=== PATIENT | male | born 1945 | race Caucasian/White ===

== ENCOUNTER 2019-08-20 13:01 | Outpatient (CLI) | payer MEDICARE, SELFPAY ==
[2019-08-20 13:40] LABS: Basophils Absolute Auto 0.1 K/mm3 (0.0-0.1); Basophils Percent Auto 0.7 % (0.2-1.2); Eosinophils Absolute Auto 0.2 K/mm3 (0-0.3); Eosinophils Percent Auto 2.6 % (0-4.4); Hematocrit 45.2 % (42.0-52.0); Hemoglobin 15.5 g/dL (14.0-18.0); Immature Granulocyte Absolute 0.02 K/mm3 (0.00-0.031); Immature Granulocyte Percent A 0.3 % (0-0.5); Lymphocytes Percent Auto 19.1 % (18.3-44.2); Mean Corpuscular HGB Conc 34.3 g/dl (32-36); Mean Corpuscular Hemoglobin 35.5 pg (26-34); Mean Corpuscular Volume 103.4 fl (80-100); Mean Platelet Volume 8.6 fl (7.4-10.4); Monocytes Absolute Auto 0.8 K/mm3 (0.1-0.6); Monocytes Percent Auto 10.4 % (2.6-8.5); Neutrophils Absolute Auto 4.9 K/mm3 (1.3-6.7); Neutrophils Percent Auto 66.9 % (45.5-73.1); Platelet Count Result 303 k/mm3 (150-375); Red Blood Count 4.37 M/mm3 (4.6-6.20); Red Cell Distribution Width 13.2 % (11.5-14.5); White Blood Count 7.3 K/mm3 (4.5-10.0)
[2019-08-20 15:58] LABS: Add Urine Microscopic? YES; Appearance Urine Cloudy (Clear); Bacteria Urine 1+ /hpf; Bilirubin Urine Negative (Negative); Blood Urine Negative (Negative); Color Urine Yellow (Yellow); Glucose Urine UA Negative (Negative); Ketones Urine Negative (Negative); Leukocyte Esterase Ur 3+ LEU/UL (Negative); Mucus Urine Rare /lpf; Nitrate Urine Positive (Negative); Protein Urine 1+ mg/dL (Negative); RBC Urine 21-50 /hpf (0-2); Specific Grav Ur 1.011 (1.001-1.035); Squamous Epithelial Cell Urine Few /hpf (Few); Urobilinogen Urine Negative mg/dL (<2.0); WBC Urine >75 /hpf
[2019-08-20 16:07] LABS: Alanine Aminotransferase 55 U/L (4-50); Albumin Level 4.6 g/dL (3.5-5.1); Alkaline Phosphatase 68 U/L (38-126); Aspartate Amino Transferase 42 U/L (17-59); Bilirubin,Total 0.6 mg/dL (0.2-1.3); Blood Urea Nitrogen 21 mg/dL (9-20); CRP 0.9 mg/dL (<1.0); Calcium 10.2 mg/dL (8.4-10.2); Carbon Dioxide 31 mmol/L (22-30); Chloride 93 mmol/L (98-107); Estimated Glomerular Filt Rate > 60; Glucose 116 mg/dL (75-110); Potassium 4.3 mmol/L (3.4-5.0); Sodium 135 mmol/L (137-145)
== END 2019-08-20 13:02 | disposition home or self-care (01) ==
PROVIDERS: PCP Family Medicine; Visit Provider Internal Medicine
DX: M15.9 Polyosteoarthritis, unspecified (principal); Z79.899 Other long term (current) drug therapy
CPT/HCPCS: 36415; 80053; 81001; 85025; 86140; 87077; 87086; 87088; 87186

== ENCOUNTER 2019-10-26 09:34 | Inpatient (IN) | payer MEDICARE, SELFPAY ==
[2019-10-26] VITALS (14 sets, daily range): BP systolic 108–185; BP diastolic 68–89; PULSE 74–132; RESP 16–35; TEMP 36.7–39.3; O2SAT 92–97; BMI 33.8
--- NOTE | ~2019-10-26 | US_ITS ---
EXAMINATION: US carotid duplex BI DATE: 10/29/2019 09:57 INDICATION: Slurred speech. TECHNIQUE: Grayscale, color Doppler, and pulsed Doppler images of the cervical carotid arteries were obtained. The degree of vessel stenosis is placed in one of the following categories: normal, <50%, 5 0-69%, >=70% but less than near-occlusion, near-occlusion, or total occlusion. Note that percent sten osis relative to normal distal artery lumen diameter is indirectly measured from velocity measurement s as described by Eduardo, et al. Radiology 2003; 229:340-346. COMPARISON: Ultrasound 07/30/2014 FINDINGS: RIGHT: The right common carotid artery (CCA) peak systolic velocity (PSV) is 69 cm/s. The right internal car otid artery (ICA) PSV is 59 cm/s. The right ICA end-diastolic velocity (EDV) is 19 cm/s. The right IC A/CCA PSV ratio is 0.8. Grayscale and color Doppler images yield an estimate of <50% diameter reducti on from plaque in the ICA. There is antegrade flow in the right vertebral artery. LEFT: The left CCA PSV is 82 cm/s. The left ICA PSV is 69 cm/s. The left ICA EDV is 25 cm/s. The left ICA/C CA PSV ratio is 0.8. Grayscale and color Doppler images yield an estimate of <50% diameter reduction from plaque in the ICA. There is antegrade flow in the left vertebral artery. IMPRESSION: 1. <50% stenosis in the right internal carotid artery. 2. <50% stenosis in the left internal carotid artery. Reviewed, dictated and finalized at location A.
--- NOTE | ~2019-10-26 | XR_ITS ---
XR chest 1V portable DATE: 10/26/2019 10:00 INDICATION: Wheezing. Dyspnea. TECHNIQUE: Portable AP chest on 10/26/2019 at 0953 hours COMPARISON: None FINDINGS: There is mild atelectasis in the lung bases. No pulmonary consolidation or pleural effusion , pneumothorax. Normal heart size. There is aortic calcification and unfolding. Scoliosis and degenerative spurring of the thoracic spine. Osteopenia. IMPRESSION: Bibasilar atelectasis Reviewed, dictated and finalized at location A. IMPRESSION: Bibasilar atelectasis
--- NOTE | ~2019-10-26 | XR_ITS ---
EXAMINATION: XR chest 1V portable EXAM DATE: 10/28/2019 08:59 INDICATION: Fever and cough. TECHNIQUE: Portable AP frontal chest x-ray was obtained. Comparison is made to prior examination from 10/26/2019. FINDINGS: Again small regions of bibasilar opacity appearance most consistent with atelectasis. No co nfluent consolidation, pneumothorax or pleural effusion suspected. The cardiomediastinal silhouette i s prominent but magnified on this AP technique. There are no osseous abnormalities identified. IMPRESSION: Basilar opacities appearance most consistent with atelectasis. Follow-up can be obtained if symptoms persist. Reviewed, dictated and finalized at location B. IMPRESSION: Basilar opacities appearance most consistent with atelectasis. Foll ow-up can be obtained if symptoms persist.
--- NOTE | ~2019-10-26 | MR_ITS ---
EXAMINATION: MR brain/brain stem wo con DATE: 10/27/2019 17:25 INDICATION: Altered mental status. TECHNIQUE: Magnetic resonance imaging (MRI) of the brain and brainstem was performed without intraven ous contrast. Sequences included sagittal and axial T1-weighted SE, axial diffusion-weighted FS SE, a xial T2*-weighted GRE, axial T2-weighted FLAIR Propeller, and axial T2-weighted Propeller. Apparent d iffusion coefficient (ADC) maps were created. COMPARISON: MRI dated 07/29/[address] dated 10/26/2019 FINDINGS: Generalized brain parenchymal volume loss. There are scattered moderate periventricular and subcortical white matter changes, most likely related to small vessel ischemic disease (microangiopa thy). No acute intracranial hemorrhage or infarction. No ventriculomegaly. No midline shift. Structur es of the posterior fossa are unremarkable. Orbits are symmetric. No significant abnormality of the p aranasal sinuses. Midline sagittal images are unremarkable. IMPRESSION: 1. No acute intracranial abnormality. 2: Chronic age-related findings. Reviewed, dictated and finalized at location A.
--- NOTE | ~2019-10-26 | US_ITS ---
EXAMINATION: US renal BI EXAM DATE: 10/27/2019 10:24 INDICATION: Acute kidney insufficiency. TECHNIQUE: Multiple grayscale and Doppler images of the kidneys were obtained (by a technologist who performed the scan) and subsequently reviewed. There is no prior study for comparison. FINDINGS: Right kidney: There is normal contour and echogenicity. It measures 11.6 x 5.3 x 6.6 centimeters. T here are no focal renal lesions identified. There is no hydronephrosis. Left kidney: There is normal contour and echogenicity. It measures 11.3 x 6.6 x 5.5 centimeters. Th ere are no focal renal lesions identified. There is no hydronephrosis. Bladder unremarkable. IMPRESSION: Sonographically unremarkable kidneys. Reviewed, dictated and finalized at location B.
--- NOTE | ~2019-10-26 | CT_ITS ---
EXAMINATION: CT brain wo con DATE: 10/26/2019 10:09 INDICATION: Altered mental status TECHNIQUE: Computed tomography (CT) of the head was performed without intravenous contrast. The mA wa s adjusted according to patient size. Iterative reconstruction technique was employed. Exam dose: 68 1.00 mGy-cm total exam DLP. COMPARISON: 04/06/2019 CT brain FINDINGS: Carotid siphon and supraclinoid internal carotid artery calcifications are noted. There is nonspecific diminished attenuation of the subcortical and periventricular cerebral white matter, like ly due to chronic small vessel ischemic changes. No intracranial mass lesion or hemorrhage or recent cerebrovascular accident is evident. No midline s hift or mass effect. There is cerebral and cerebellar moderate atrophy. No subdural or epidural hematoma. No orbital mass lesion. Included paranasal sinuses and mastoid air cells are normally developed and aerated. No fracture or bone destruction of the cranial vault. IMPRESSION: Cerebral atherosclerosis and chronic small vessel ischemic changes of the cerebral white matter No acute intracranial finding or significant change since 04/06/2019 Reviewed, dictated and finalized at Location A. Reviewed, dictated and finalized at location A.
--- NOTE | 2019-10-26 09:41 | ED.NEUROSD ---
HPI - Neuro Symptoms/Deficit General Chief Complaint: Fever Stated Complaint: i think my dad is having a stroke Time Seen by Provider: 10/26/19 09:41 Source: patient and family () Mode of arrival: ambulatory Limitations: no limitations History of Present Illness HPI Narrative: A 73 y/o male presents to the ED with c/o AMS. Per , pt was normal when they went to sleep at 11:00 PM last night. The pt was in the bathroom this morning when he couldn't walk so pt's brought a chair into the bathroom for him to sit. Pt was complaining of back pain a few days ago but pt states this has since resolved. Pt's temperature in the ED was measured to be 102 degrees F. He denies ABD pain, N/V, dysuria, constipation, CP, SOB, a rash, leg pain, and a PMHx of A-fib or COPD. Timing confirmed by: spouse Related Data Home Medications Medication Instructions Recorded Confirmed hydrochlorothiazide 25 mg tablet 25 mg PO DAILY 05/28/19 10/26/19 lisinopril 10 mg tablet 10 mg PO DAILY 05/28/19 10/26/19 aspirin 81 mg tablet,delayed 81 mg PO DAILY 07/08/19 10/26/19 release brimonidine 0.2 %-timolol 0.5 % 1 drop EACH EYE Q12H 07/08/19 10/26/19 eye drops diclofenac sodium 1 % topical gel 2 gm TOPICAL QID 07/08/19 10/26/19 testosterone 20.25 mg/1.25 gram 2 pump TOPICAL DAILY 07/08/19 10/26/19 (1.62 %) transdermal gel pump travoprost 0.004 % eye drops 1 drop EACH EYE QPM 07/08/19 10/26/19 Allergies Allergy/AdvReac Type Severity Reaction Status Date / Time No Known Drug Allergies Allergy Mild unknown Verified 10/26/19 14:40 Review of Systems Review of Systems: All systems reviewed & are unremarkable except as noted in HPI and below Constitutional: Constitutional: Reports fever(s) (102 degrees F) Cardiovascular: Cardiovascular: Denies chest pain Respiratory: Respiratory: Denies dyspnea Gastrointestinal: Gastrointestinal: Denies abdominal pain, Denies constipation, Denies nausea and Denies vomiting Genitourinary: Genitourinary: Denies dysuria Musculoskeletal: Musculoskeletal: Reports back pain (resolved) Comments: Denies: leg pain Integumentary/Breasts: Skin/Breast: Denies rash Neurologic: Comments: Reports: AMS PMFSH Past Medical History Medical History (Updated 10/26/19 @ 16:03 by Eduardo Gagnon MD) Khoury palsy 2019. Essential hypertension Glaucoma Hypogonadism in male Uses testosterone gel. Osteoarthritis Overactive bladder Pre-diabetes Hemoglobin A1c was 6.3% in April 2019. Rheumatoid arthritis with rheumatoid factor of multiple sites without organ or systems involvement Immunosuppressed, on methotrexate. TIA (transient ischemic attack) 2014. Vitamin D deficiency Surgical History Surgical History (Updated 10/26/19 @ 15:15 by Yohana Roche PA-C) History of appendectomy History of left cataract surgery Family History Family History (Updated 10/26/19 @ 15:15 by Yohana Roche PA-C) Other Acute myocardial infarction Diabetes mellitus Heart disease Hypertension Social History Social History (Updated 10/26/19 @ 15:16 by Yohana Roche PA-C) Social History: The patient lives in [place]. His , Vandana, is his emergency contact. He is a former smoker and quit in 1989. No alcohol or drug abuse. Spiritual care concerns: Yes (Buddhist) Agree to blood products: Yes Comments PCP: Dr. Cho Exam Narrative: Exam Narrative: Constitutional: healthy appearing, no acute distress, well nourished HENMT: lip normal, MM moist Eyes: conjunctiva normal, PERRL Respiratory: normal respiratory effect, minimal wheeze Cardiovascular: tachycardic, irregularly irregular, no murmur GI: soft, non-tender, normal bowel sounds Back/Spine/Pelvis: Full ROM Skin: normal color, dry skin, warm, small area of erythema under the pannus Neurological: A&Ox3, normal speech Extremities: full ROM Psych: mental status grossly normal, normal affect Course Consultations Co
[2019-10-26 09:56] LABS: Basophils Absolute Auto 0.1 K/mm3 (0.0-0.1); Basophils Percent Auto 0.3 % (0.2-1.2); Eosinophils Percent Auto 0.2 % (0-4.4); Hematocrit 42.9 % (42.0-52.0); Hemoglobin 14.7 g/dL (14.0-18.0); Immature Granulocyte Percent A 0.6 % (0-0.5); Lymphocytes Absolute Auto 0.87 K/mm3 (0.9-3.2); Mean Corpuscular HGB Conc 34.3 g/dl (32-36); Mean Corpuscular Hemoglobin 35.7 pg (26-34); Mean Corpuscular Volume 104.1 fl (80-100); Mean Platelet Volume 9.5 fl (7.4-10.4); Monocytes Absolute Auto 2.4 K/mm3 (0.1-0.6); Monocytes Percent Auto 13.5 % (2.6-8.5); Neutrophils Absolute Auto 14.1 K/mm3 (1.3-6.7); Neutrophils Percent Auto 80.4 % (45.5-73.1); Platelet Count Result 207 k/mm3 (150-375); Red Blood Count 4.12 M/mm3 (4.6-6.20); Red Cell Distribution Width 14.1 % (11.5-14.5); White Blood Count 17.5 K/mm3 (4.5-10.0)
[2019-10-26 10:06] LABS: Lactic Acid Reflex 2.6 mmol/L (0.7-2.1)
[2019-10-26 10:10] LABS: Alanine Aminotransferase 33 U/L (4-50); Albumin Level 4.4 g/dL (3.5-5.1); Alkaline Phosphatase 58 U/L (38-126); Aspartate Amino Transferase 30 U/L (17-59); Bilirubin,Total 1.4 mg/dL (0.2-1.3); Blood Urea Nitrogen 31 mg/dL (9-20); Calcium 8.9 mg/dL (8.4-10.2); Carbon Dioxide 23 mmol/L (22-30); Chloride 97 mmol/L (98-107); Estimated Glomerular Filt Rate 31; Glucose 183 mg/dL (75-110); Lactate Dehydrogenase 442 U/L (313-618); Sodium 132 mmol/L (137-145)
[2019-10-26] MEDS: SODIUM CHLORIDE 0.9% IV 1,000 ML 999 ML IV CONT ×2 (10:15→13:14)
[2019-10-26 10:18] LABS: Troponin I < 0.012 ng/mL (0.000-0.034)
[2019-10-26 10:25] LABS: CRP 17.8 mg/dL (<1.0)
[2019-10-26 11:06] LABS: INR 1.2; Prothrombin Time 14.7 Seconds (11.1-14.7)
[2019-10-26 11:07] LABS: Partial Thromboplastin Time 25.2 SECONDS (22.3-36.8)
[2019-10-26 11:23] LABS: Add Urine Microscopic? YES; Appearance Urine Clear (Clear); Bilirubin Urine Negative (Negative); Blood Urine 2+ (Negative); Color Urine Yellow (Yellow); Glucose Urine UA Negative (Negative); Ketones Urine Negative (Negative); Leukocyte Esterase Ur 2+ LEU/UL (Negative); Mucus Urine Rare /lpf; Nitrate Urine Negative (Negative); Protein Urine 1+ mg/dL (Negative); Specific Grav Ur 1.017 (1.001-1.035); Squamous Epithelial Cell Urine Rare /hpf (Few); Urobilinogen Urine Negative mg/dL (<2.0); WBC Urine >75 /hpf
[2019-10-26 12:52] LABS: Reflex Lactic Acid Yes or No Add Lactic
--- NOTE | 2019-10-26 15:10 | PM.IMHP ---
H&P: HPI History of Present Illness Chief complaint: Possible stroke. Narrative: Shant Zaman is a 73-year-old male with rheumatoid arthritis on immunosuppressants, hypertension, prediabetes, and history of TIA who presented to the emergency department via private vehicle from home as family members were concerned that the patient may have had a stroke. At the time my evaluation, the patient is alert and oriented x4, however he was quite confused this morning and he does not recall a lot of the events that happened prior to him coming to the hospital. As such, some of this history is obtained via a review of his electronic medical records as well as discussions with his via phone, with the patient's permission. For the last several days, he has had an aching discomfort in his right lower back, for which he has been taking Tylenol and using diclofenac gel. It seemed to be better on Sunday, but he began complaining of the pain again yesterday. He seemed to be in his usual state of health when his retired to bed last evening. Reportedly the patient came to bed at 02:30 and at that time he seemed to be doing just fine, however notes that he laid down in bed at a strange angle, which was unusual for him. She then decided to get up and sleep in a different room. Around 07:30, he called to his for help as he was too weak to get out of bed and he seemed to be speaking nonsensically with slurred speech at that time. She also notes that he was ?huffing and puffing? and seemed to be short of breath. When they got to the bathroom, the patient urinated on the floor and he was using the sink to hold himself up. was concerned that he may be having a stroke due to this slurred speech and weakness and thus he was brought in for evaluation. His temperature was 102.7? on arrival to the emergency department and he also meets criteria for sepsis. Urinalysis was positive for leukocyte esterase with > 75 white blood cells per high-power field. With further questioning, the patient denies symptoms of UTI, and specifically denies dysuria, urgency, hesitancy, and malodorous urine. He was unaware of having a fever, but he does report intermittent chills over the past couple of days. He has had a mild, dry cough which he attributes to tree pollen for which he has been taking pseudoephedrine. He has also had mild shortness of breath. He denies chest and pleuritic pain. His appetite has been as per usual but he does note being quite thirsty earlier today. No abdominal pain, nausea, vomiting, or diarrhea. Of note, he was found to be in atrial fibrillation with rapid ventricular response on arrival to the emergency department, which is a new diagnosis for him. He reports being asymptomatic with that. He has no sick contacts. He and his have not left the house for nearly 3 weeks time, and they have only been in contact with her son on occasion when he brings them groceries. Review of Systems Review of Systems: Narrative: Twelve systems were reviewed with pertinent positives and negatives as per HPI. He denies vertigo. No headache or neck ache. He has had some mild sinus congestion, postnasal drip, and mild dry cough which he attributes to seasonal allergies. This is not a new finding for him. No otalgia or odynophagia. He denies chest pain, pleuritic pain, palpitations, orthopnea, PND, and lower extremity edema. No shortness of breath. Except as documented, all other systems were reviewed and are negative. [facility] Past Medical History Medical History (Updated 10/26/19 @ 18:53 by Yohana Roche PA-C) Khoury palsy 2019. Essential hypertension Glaucoma Hypogonadism in male Uses testosterone gel. Osteoarthritis Overactive bladder Pre-diabetes Hemoglobin A1c was 6.3% in April 2019. Retinal vein occlusion of left eye Rheumatoid arthritis with rheumatoid factor of multiple sites without organ or systems involvement Immunosuppressed, on m
[2019-10-26] MEDS: LACTATED RINGERS 1,000 ML 100 ML IV CONT (15:24)
[2019-10-26] MEDS: LACTATED RINGERS 1,000 ML 999 ML IV CONT (17:36)
[2019-10-26 18:03] LABS: Blood Urea Nitrogen 27 mg/dL (9-20); Calcium 8.2 mg/dL (8.4-10.2); Carbon Dioxide 26 mmol/L (22-30); Chloride 99 mmol/L (98-107); Estimated CRCL calculation 49 ml/min; Estimated Glomerular Filt Rate 46; Glucose 135 mg/dL (75-110); Magnesium 1.7 mg/dL (1.6-2.3); Phosphorus 2.6 mg/dL (2.5-4.5); Potassium 3.8 mmol/L (3.4-5.0); Sodium 134 mmol/L (137-145)
[2019-10-26 18:12] LABS: NT Pro B Type Natriuretic Pept 411 PG/ML (5-100)
[2019-10-26 18:17] LABS: D Dimer 10.11 ug/mL (<0.48)
--- NOTE | 2019-10-26 18:41 | ADMGEN ---
This patient, Shant Zaman, was admitted to IMU Room 204-01 at 1425. Patient/family oriented to hospital policies and general routines including ID bracelet, bed and alarms, visiting hours, pain management, procedures, bathroom and other care routines, personal items, smoking policy, room service/diet, and visiting hours. Valuables list has been completed. Information on how to activate the Rapid Response Team has been discussed. Patient/Family are encouraged to report perceived risks to care and to ask questions if they do not understand what they are told or what they should do.
[2019-10-26 19:09] LABS: Folic Acid 17.2 ng/mL (2.76->20)
[2019-10-26] MEDS: SODIUM CHLORIDE 0.9% IV 1,000 ML 125 ML IV CONT (20:53)
[2019-10-26] MEDS: ENOXAPARIN 120 MG/0.8 ML SYRINGE 110 MG SUB-Q (20:53)
[2019-10-26] MEDS: METOPROLOL TARTRATE 25 MG TABLET PO (20:54)
[2019-10-27] VITALS (16 sets, daily range): BP systolic 113–156; BP diastolic 48–87; PULSE 80–125; RESP 18–20; TEMP 36.8–39.3; O2SAT 95–96
--- NOTE | 2019-10-27 01:26 | PC.NURSE ---
This patient, Shant Zaman, was received from [ IMU ] on 10/27/19 at 0126. Personal belongings list checked and signed. Patient/family oriented to unit policies and routines. VSS. Placed on droplet 2020 isolation.
[2019-10-27 08:52] LABS: Glucose Point of Care 131 (65-105)
--- NOTE | 2019-10-27 09:18 | ECG_ITS ---
Measurements Intervals [place] Rate: 107 P: WA: 0 QRS: 49 QRSD: 161 T: -19 QT: 392 QTc: 524 Interpretive Statements ATRIAL FLUTTER/TACHYCARDIA WITH RAPID VENTRICULAR RESPONSE RIGHT BUNDLE BRANCH BLOCK ABNORMAL ECG Electronically Signed On 10-27-2019 11:12:24 CDT by Francisco Pérez D.O.
[2019-10-27] MEDS: ASPIRIN 81 MG ENTERIC TABLET PO (10:43)
[2019-10-27] MEDS: ENOXAPARIN 120 MG/0.8 ML SYRINGE 110 MG SUB-Q ×2 (10:44→20:11)
[2019-10-27] MEDS: FOLIC ACID 1 MG TABLET PO (10:44)
[2019-10-27] MEDS: METOPROLOL TARTRATE 25 MG TABLET PO ×2 (10:44→20:15)
[2019-10-27] MEDS: BRIMONIDINE TARTRATE 0.2% OP SOLN 5 ML BTL 1 DROP EACH EYE ×2 (10:45→20:12)
[2019-10-27] MEDS: TIMOLOL MALEATE 0.5% OP SOLN 5 ML BTL 1 DROP EACH EYE ×2 (10:45→20:12)
[2019-10-27 12:21] LABS: Hematocrit 38.1 % (42.0-52.0); Hemoglobin 12.8 g/dL (14.0-18.0); Mean Corpuscular HGB Conc 33.6 g/dl (32-36); Mean Corpuscular Hemoglobin 35.9 pg (26-34); Mean Corpuscular Volume 106.7 fl (80-100); Mean Platelet Volume 9.1 fl (7.4-10.4); Platelet Count Result 161 k/mm3 (150-375); Red Blood Count 3.57 M/mm3 (4.6-6.20); White Blood Count 11.8 K/mm3 (4.5-10.0)
[2019-10-27 12:35] LABS: Blood Urea Nitrogen 23 mg/dL (9-20); Calcium 8.2 mg/dL (8.4-10.2); Carbon Dioxide 27 mmol/L (22-30); Chloride 102 mmol/L (98-107); Estimated CRCL calculation 41 ml/min; Estimated Glomerular Filt Rate 37; Glucose 129 mg/dL (75-110); Magnesium 1.9 mg/dL (1.6-2.3); Potassium 3.7 mmol/L (3.4-5.0); Sodium 135 mmol/L (137-145)
--- NOTE | 2019-10-27 13:40 | PC.NURSE ---
Dr Mccarty notified of increasing confusion today. Patient inappropriate at time, requires redirection frequently. New orders received.
--- NOTE | 2019-10-27 14:35 | PM.IMPN ---
Progress Note: A&P Assessment and Plan (1) Sepsis: Code(s): A41.9 - Sepsis, unspecified organism Status: Acute Assessment and Plan: Present on admission and supported by tachycardia, fever, leukocytosis, lactic acidosis and acute kidney injury. Presumably a urinary source, however no bacteria noted on microscopy. Given dry cough, shortness breath, high fever, elevated D-dimer, elevated ferritin level, and immunocompromised state, it would be prudent to rule out COVID-19. LFTs and LDH are within normal limits. [facility] Dept called. Specimen to be sent to commercial laboratory. He received IV fluid boluses with normalization of his lactic acid level. Blood cultures have been obtained and are pending. 10/27/19 14:35 Patient is 73-year-old male with past medical history of rheumatoid arthritis, hypertension prediabetes patient was brought to the emergency departmen t as earlier he was quite confused and there was a concern the patient may have stroke, CT of the head is negative for any acute injury, found to have a new onset atrial fibrillation, patient was started on on metoprolol 25 mg b.i.d. patient rate is controlled currently, his Chads Vasc 2 is 5, and currently anticoagulated with Lovenox, chemical equipment sales engineer consulted, UTI denies any symptoms of dysuria or frequency of urination his UA is positive leuko Estrace and patient is being treated ceftriaxone, patient also had a complaint of dry cough fever patient is immuno compromise with elevated D-dimer and ferritin patient is being evaluated for COVID-19 and placed under isolation, Currently patient denies any chest pain shortness of breath palpitation fever chills he insisting to go home, however later in the afternoon I received a call from nurse the patient is more confused and his family concern the patient is not himself to further evaluate we have order MRI of the brain and consulted Neurology with recommendation. (2) Acute kidney injury: Code(s): N17.9 - Acute kidney failure, unspecified Status: Acute Assessment and Plan: He looks mildly dehydrated on exam, but reports having good oral intake. Cannot rule out ATN from sepsis. Insert De Leon catheter to monitor strict I/O. Avoid nephrotoxic agents. Renal ultrasound is normal Will gently hydrate the patient and monitor (3) Metabolic encephalopathy: Code(s): G93.41 - Metabolic encephalopathy Status: Acute Assessment and Plan: Secondary to acute kidney injury and underlying infection. Confusion is much improved with resolution of fever. (4) Rheumatoid arthritis with rheumatoid factor of multiple sites without organ or systems involvement: Code(s): M05.79 - Rheumatoid arthritis with rheumatoid factor of multiple sites without organ or systems involvement Status: Acute Assessment and Plan: Patient takes methotrexate every Sunday, but missed today's dose. Continue to hold such given active infection. (5) Essential hypertension: Code(s): I10 - Essential (primary) hypertension Status: Acute Assessment and Plan: Blood pressures were reviewed and they are stable. Continue to monitor closely as lisinopril and hydrochlorothiazide are on hold given acute kidney injury. (6) UTI (urinary tract infection): Qualifiers: Hematuria presence: without hematuria Urinary tract infection type: site unspecified Qualified Code(s): N39.0 - Urinary tract infection, site not specified Code(s): N39.0 - Urinary tract infection, site not specified Status: Acute Assessment and Plan: Urine is leukocyte esterase positive and demonstrates > 75 WBCs per high-power field. No bacteria noted, however. Will continue ceftriaxone, pending urine culture. (7) Atrial fibrillation with rapid ventricular response: Code(s): I48.91 - Unspecified atrial fibrillation Status: Acute Assess
[2019-10-27] MEDS: LATANOPROST 0.005% OP SOLN 2.5 ML BTL 1 DROP EACH EYE (20:15)
[2019-10-27] MEDS: SODIUM CHLORIDE 0.9% IV 1,000 ML 125 ML IV CONT (23:48)
[2019-10-27] MEDS: ACETAMINOPHEN 325 MG TABLET 650 MG PO (23:50)
[2019-10-28] VITALS (14 sets, daily range): BP systolic 118–140; BP diastolic 67–98; PULSE 68–97; RESP 16–20; TEMP 36.2–37.4; O2SAT 93–98
[2019-10-28 06:03] LABS: Hematocrit 37.6 % (42.0-52.0); Hemoglobin 12.7 g/dL (14.0-18.0); Mean Corpuscular HGB Conc 33.8 g/dl (32-36); Mean Corpuscular Hemoglobin 36.2 pg (26-34); Mean Corpuscular Volume 107.1 fl (80-100); Mean Platelet Volume 9.3 fl (7.4-10.4); Platelet Count Result 150 k/mm3 (150-375); Red Blood Count 3.51 M/mm3 (4.6-6.20)
[2019-10-28 06:11] LABS: Blood Urea Nitrogen 16 mg/dL (9-20); Carbon Dioxide 28 mmol/L (22-30); Chloride 104 mmol/L (98-107); Estimated CRCL calculation 69 ml/min; Estimated Glomerular Filt Rate > 60; Glucose 111 mg/dL (75-110); Potassium 3.6 mmol/L (3.4-5.0); Sodium 138 mmol/L (137-145)
--- NOTE | 2019-10-28 07:45 | PC.NURSE ---
Dr Mccarty called and status report update provided. Advised of elevated temp last night of 102.8, resolved with one dose of Tylenol. I also reported continued impulsivity and confusion. New orders noted for CXR repeat.
[2019-10-28 08:27] LABS: Basophils Percent Auto 0.4 % (0.2-1.2); Eosinophils Absolute Auto 0.2 K/mm3 (0-0.3); Eosinophils Percent Auto 1.6 % (0-4.4); Hematocrit 38.2 % (42.0-52.0); Hemoglobin 12.7 g/dL (14.0-18.0); Immature Granulocyte Absolute 0.04 K/mm3 (0.00-0.031); Immature Granulocyte Percent A 0.4 % (0-0.5); Lymphocytes Absolute Auto 1.22 K/mm3 (0.9-3.2); Lymphocytes Percent Auto 13.4 % (18.3-44.2); Mean Corpuscular HGB Conc 33.2 g/dl (32-36); Mean Corpuscular Hemoglobin 35.8 pg (26-34); Mean Corpuscular Volume 107.6 fl (80-100); Monocytes Percent Auto 10.6 % (2.6-8.5); Neutrophils Absolute Auto 6.7 K/mm3 (1.3-6.7); Neutrophils Percent Auto 73.6 % (45.5-73.1); Platelet Count Result 168 k/mm3 (150-375); Red Blood Count 3.55 M/mm3 (4.6-6.20); Red Cell Distribution Width 13.9 % (11.5-14.5); White Blood Count 9.1 K/mm3 (4.5-10.0)
[2019-10-28] MEDS: METOPROLOL TARTRATE 25 MG TABLET PO ×2 (09:09→20:10)
[2019-10-28] MEDS: FOLIC ACID 1 MG TABLET PO (09:10)
[2019-10-28] MEDS: ENOXAPARIN 120 MG/0.8 ML SYRINGE 110 MG SUB-Q ×2 (09:10→20:11)
[2019-10-28] MEDS: ASPIRIN 81 MG ENTERIC TABLET PO (09:10)
[2019-10-28] MEDS: TIMOLOL MALEATE 0.5% OP SOLN 5 ML BTL 1 DROP EACH EYE ×2 (09:11→20:10)
[2019-10-28] MEDS: SODIUM CHLORIDE 0.9% IV 1,000 ML 125 ML IV CONT ×2 (09:11→20:11)
[2019-10-28] MEDS: BRIMONIDINE TARTRATE 0.2% OP SOLN 5 ML BTL 1 DROP EACH EYE ×2 (09:11→20:10)
[2019-10-28 10:52] LABS: D Dimer 2.68 ug/mL (<0.48); Lactate Dehydrogenase 475 U/L (313-618)
--- NOTE | 2019-10-28 12:42 | CONS_ITS ---
DATE OF CONSULTATION: 10/26/2019 HISTORY OF PRESENT ILLNESS: A 73-year-old right-handed male has been admitted to [facility] with ongoing history of: 1. Rheumatoid arthritis, on immunosuppressants. 2. Hypertension. 3. Prediabetic. 4. Recurrent TIA. He presented to the emergency department via private vehicle from home as the family members were concern that the patient have had a stroke. At the time of initial evaluation by the hospital, he was awake, alert, oriented x4, but was somewhat confused, was unable to recall the lot of events that happened prior to him coming to the hospital. As per the electronic records, he has had aching discomfort in his right lower back, for which he has been taking Tylenol and using diclofenac gel, it seemed to be better on Sunday, but he began complaining of pain again yesterday though he was in his usual state of health when his retired to bed last evening. The patient came to bed at 02:30 and at that time, he seemed to be doing just fine. However, noted that he lay down in bed at a strange angle. She then decided to get up and sleep in a different room, around 07:30 a.m. he called to his for help as he was too weak to get out of the bed and seemed to be speaking nonsensically with slurred speech. He was huffing and puffing and seemed to be short of breath. When they got to the bathroom, patient urinated on the floor while using the sink to hold himself up. was concerned that maybe he had a stroke due to his slurred speech and weakness and he was brought to the hospital for further evaluation. In the hospital, he was noted to be febrile with temp of 102.7. UA was positive for leukocyte esterase, more than 75. He did not have any complaints about the UTI. He was unaware of being febrile, but he gave history of intermittent chills over the last couple of days. He and his have not left the house for nearly 3 weeks and they have been only in contact with her son on occasion when he brings the groceries. PAST MEDICAL HISTORY: In the past, patient has ongoing history of Khoury's palsy, hypertension, glaucoma, hypogonadism, osteoarthritis, overactive bladder, prediabetic, retinal occlusion of the left eye and rheumatoid arthritis and history of vitamin D deficiency, and TIA in the past. PAST SURGICAL HISTORY: He has also undergone appendectomy and left cataract extraction. MEDICATIONS: At the time of admission to the hospital, he was takin. Hydrochlorothiazide 25 mg daily. 2. Lisinopril 10 mg daily. 3. Aspirin 81 mg daily. 4. Diclofenac 1% topical gel. 5. Transdermal gel testosterone. 6. Travoprost eyedrops. 7. Oxybutynin 10 mg. 8. Folic acid 1 mg daily. 9. Methotrexate sodium 2.5 mg tablet weekly. ALLERGIES: HE IS NOT ALLERGIC TO ANY MEDICATION. PHYSICAL EXAMINATION: VITAL SIGNS: He was notedly febrile with temp of 102.7, pulse 129, respiration 35, blood pressure 130/88, and pulse ox 95%. HEENT: Head normocephalic with no cranial bruit. Ear, nose, throat exam normal. NECK: Supple. HEART: Irregular. LUNGS: Clear. ABDOMEN: Soft. NEUROLOGICAL: He is awake, alert, oriented x3. His speech not dysphasic, not dysarthric not dysphonic. Cranial nerve examination normal. Motor and sensory exam normal. Reflexes symmetrical. Plantars downgoing. LABORATORY DATA: Evaluation up until now documented CBC with leukocytosis, WBC 17.5, hemoglobin 14.7, platelet count 207. Normal basic metabolic panel, borderline. Sodium 132, chloride 97, BUN 31, creatinine 2.10, glucose 183. Troponin less than 0.012. Hepatic enzymes normal with bilirubin of 1.4. UA 1+ protein. Initial CT scan of the head in the emergency room was negative, except a small vessel ischemic change of cerebral white matter with bibasilar atelectasi
--- NOTE | 2019-10-28 13:42 | WPDINFPN2 ---
Progress Note: A&P Assessment and Plan (1) UTI (urinary tract infection): Qualifiers: Hematuria presence: without hematuria Urinary tract infection type: site unspecified Qualified Code(s): N39.0 - Urinary tract infection, site not specified Code(s): N39.0 - Urinary tract infection, site not specified Status: Acute Assessment and Plan: UTI with bacteremia REC vanc #1, at least 3 days IV therapy Subjective Date/time seen: 10/28/19 13:42 Objective Data Vital Signs Vital Signs: Vital Signs - 24 hr 10/27/19 14:00 10/27/19 16:00 10/27/19 18:00 Temperature 37.1 C 36.8 C Pulse Rate 105 H 80 93 Respiratory Rate 18 18 Blood Pressure 142/72 H 156/83 H Pulse Oximetry 95 95 10/27/19 20:00 10/27/19 20:15 10/27/19 20:25 Temperature Pulse Rate 85 95 95 Respiratory Rate Blood Pressure 146/87 H Pulse Oximetry 96 10/27/19 22:00 10/27/19 23:50 10/28/19 00:00 Temperature 38.1 C H 39.3 C H Pulse Rate 87 97 Respiratory Rate 18 Blood Pressure 123/67 Pulse Oximetry 95 10/28/19 00:49 10/28/19 02:00 10/28/19 04:00 Temperature 36.8 C 36.8 C Pulse Rate 87 68 Respiratory Rate 16 Blood Pressure 125/78 Pulse Oximetry 93 10/28/19 06:00 10/28/19 09:09 10/28/19 10:00 Temperature 36.8 C 37.4 C Pulse Rate 84 84 97 Respiratory Rate 18 18 Blood Pressure 118/67 140/98 H Pulse Oximetry 96 98 Intake/Output Intake/Output: Intake & Output 10/25/19 10/26/19 10/27/19 10/28/19 23:59 23:59 23:59 23:59 Intake Total 2250 2680 1240 Output Total 800 1650 300 Balance 1450 1030 940 Meds/Results Medications: Active Medications Generic Name Dose Route Start Last Admin Trade Name Freq PRN Reason Stop Dose Admin Acetaminophen 650 mg 10/26/19 19:14 10/27/19 23:50 Tylenol Tablet PO 650 mg Q6H PRN Administration Mild Pain (1-3) or Fever Aspirin 81 mg 10/27/19 09:00 10/28/19 09:10 Aspirin Ec PO 81 mg DAILY MART Administration Brimonidine Tartrate 1 drop 10/26/19 21:00 10/28/19 09:11 Alphagan 0.2% Op Soln EACH EYE 1 drop Q12HR MART Administration Diclofenac Sodium 0 applic 10/26/19 21:00 10/27/19 20:15 Voltaren 1% Gel TOPICAL 11/25/19 21:01 Not Given QID MART Enoxaparin Sodium 110 mg 10/26/19 20:00 10/28/19 09:10 Lovenox SUB-Q 110 mg Q12HR MART Administration Folic Acid 1 mg 10/27/19 09:00 10/28/19 09:10 Folic Acid PO 1 mg DAILY MART Administration Sodium Chloride 1,000 mls @ 125 mls/hr 10/26/19 19:15 10/28/19 09:11 Normal Saline Iv IV CONT 125 mls/hr .Q8H MART Administration Ipratropium [place] 2 puff 10/26/19 18:30 Atrovent Hfa Inhaler INHALATION Q6HRT PRN Shortness Of Breath Latanoprost 1 drop 10/26/19 21:00 10/27/19 20:15 Xalatan EACH EYE 1 drop HS MART Administration Levalbuterol HCl 2 puff 10/26/19 17:36 Xopenex Hfa INHALATION Q6HRT PRN Shortness Of Breath Metoprolol Tartrate 25 mg 10/26/19 19:15 10/28/19 09:09 Lopressor PO 25 mg Q12HR MART Administration Oxybutynin Chloride 10 mg 10/27/19 09:00 10/28/19 09:11 Ditropan Xl PO 10 mg DAILY MART Administration Timolol Maleate 1 drop 10/26/19 21:00 10/28/19 09:11 Timoptic 0.5% Ophth Soln EACH EYE 1 drop Q12HR MART Administration Radiology Results: ITS Impressions Head CT 10/26/19 10:12 IMPRESSION: Cerebral atherosclerosis and chronic small vessel ischemic changes of the cerebral white matter No acute intracranial finding or significant change since 04/06/2019 Renal Ultrasound 10/27/19 10:31 IMPRESSION: Sonographically unremarkable kidneys. Brain MRI 10/27/19 17:52 IMPRESSION: 1. No acute intracranial abnormality. 2: Chronic age-related findings. Chest X-Ray 10/28/19 09:01 IMPRESSION: Basilar opacities appearance most consistent with atelectasis. Follow-up can be obtained if symptoms persist.
--- NOTE | 2019-10-28 16:05 | PM.IMPN ---
Progress Note: A&P Assessment and Plan (1) Sepsis: Code(s): A41.9 - Sepsis, unspecified organism Status: Acute Assessment and Plan: Present on admission and supported by tachycardia, fever, leukocytosis, lactic acidosis and acute kidney injury. Presumably a urinary source, however no bacteria noted on microscopy. Given dry cough, shortness breath, high fever, elevated D-dimer, elevated ferritin level, and immunocompromised state, it would be prudent to rule out COVID-19. LFTs and LDH are within normal limits. [facility] called. Specimen to be sent to commercial laboratory. He received IV fluid boluses with normalization of his lactic acid level. Blood cultures have been obtained and are pending. 10/28/19 16:05 Patient is 73-year-old male with past medical history of rheumatoid arthritis, hypertension prediabetes patient was brought to the emergency department, as he was quite confused and there was a concern the patient may have stroke, CT of the head was negative for any acute injury, similarly MRI of the brain did not show any acute injury, patient is seen by neurologist recommending carotid ultrasound further evaluate and continue present managed with aspirin, patient also found to have a new onset atrial fibrillation, patient was started on on metoprolol 25 mg b.i.d. 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 mclaughlin started the patient on vancomycin, , patient also had a complaint of dry cough fever patient is immuno compromise with elevated D-dimer and ferritin patient is being evaluated for COVID-19 and placed under isolation, however patient was seen by Dr. mclaughlin does not suspect patient has a COVID-19 recommended removed isolation, Currently patient denies any chest pain shortness of breath palpitation fever chills he insisting to go home, will continue to monitor (2) Acute kidney injury: Code(s): N17.9 - Acute kidney failure, unspecified Status: Acute Assessment and Plan: He looks mildly dehydrated on exam, but reports having good oral intake. Cannot rule out ATN from sepsis. Insert De Leon catheter to monitor strict I/O. Avoid nephrotoxic agents. Renal ultrasound is normal Will gently hydrate the patient and monitor Patient kidney function is back to baseline (3) Metabolic encephalopathy: Code(s): G93.41 - Metabolic encephalopathy Status: Acute Assessment and Plan: Secondary to acute kidney injury and underlying infection. Confusion is much improved with resolution of fever. (4) Rheumatoid arthritis with rheumatoid factor of multiple sites without organ or systems involvement: Code(s): M05.79 - Rheumatoid arthritis with rheumatoid factor of multiple sites without organ or systems involvement Status: Acute Assessment and Plan: Patient takes methotrexate every Sunday, but missed today's dose. Continue to hold such given active infection. (5) Essential hypertension: Code(s): I10 - Essential (primary) hypertension Status: Acute Assessment and Plan: Blood pressures were reviewed and they are stable. Continue to monitor closely as lisinopril and hydrochlorothiazide are on hold given acute kidney injury. (6) UTI (urinary tract infection): Qualifiers: Hematuria presence: without hematuria Urinary tract infection type: site unspecified Qualified Code(s): N39.0 - Urinary tract infection, site not specified Code(s): N39.0 - Urinary tract infection, site not specified Status: Acute Assessment and Plan: Urine is leukocyte esterase positive and demonstrates > 75 WBCs per high-power field. No bacteria noted, however.
[2019-10-28] MEDS: LATANOPROST 0.005% OP SOLN 2.5 ML BTL 1 DROP EACH EYE (20:10)
[2019-10-29] VITALS (9 sets, daily range): BP systolic 117–162; BP diastolic 75–96; PULSE 67–86; RESP 20; TEMP 36.8–37.2; O2SAT 94–98
[2019-10-29] MEDS: SODIUM CHLORIDE 0.9% IV 1,000 ML 125 ML IV CONT (03:45)
[2019-10-29 05:35] LABS: Pan-SARS RNA: NEGATIVE (NEGATIVE); SARS-CoV-2 RNA: NEGATIVE (NEGATIVE)
[2019-10-29 05:51] LABS: Hematocrit 38.7 % (42.0-52.0); Hemoglobin 13.1 g/dL (14.0-18.0); Mean Corpuscular HGB Conc 33.9 g/dl (32-36); Mean Corpuscular Hemoglobin 35.5 pg (26-34); Mean Corpuscular Volume 104.9 fl (80-100); Mean Platelet Volume 9.4 fl (7.4-10.4); Platelet Count Result 179 k/mm3 (150-375); Red Blood Count 3.69 M/mm3 (4.6-6.20); Red Cell Distribution Width 13.7 % (11.5-14.5)
--- NOTE | 2019-10-29 05:59 | CONS_ITS ---
DATE OF CONSULTATION: 10/28/2019 REASON FOR CONSULTATION: Bacteremia. HISTORY OF PRESENT ILLNESS: The patient is a 73-year-old male, who had a urinary tract infection some 10-15 years ago. He does not remember the details and was never told the underlying cause of the urine infection. He has no endovascular nor extravascular devices nor hardware in place. He has had no previous urinary instrumentation nor urologic abnormalities. He was in his usual state of health until one day before admission when he developed decreased level of consciousness. He was brought to the hospital by his son and . He was febrile and was admitted. Urinary catheter was placed and he was given ceftriaxone, changed to levofloxacin today along with a single dose of azithromycin. Consultation now requested. The patient is on oxybutynin at home along with testosterone gel, diuretic as well as methotrexate, 8 tablets, 2.5 mg each, once weekly. There has been no adjustment in the dosages in recent months. He has been on the methotrexate for some 2 years. He has been on no other immunosuppressants in the last 3 months for this or any other purpose. He denies CVA pain, suprapubic pain, urinary hesitancy, hematuria. He was febrile here, but had no pre-existing symptoms of fever, chills, or sweats. HABITS: Ex-smoker in 1995. No alcohol. No illicit drugs. PRESENT MEDICATIONS: Methotrexate, on hold, and no new immunosuppressants. ALLERGIES: NONE KNOWN. PAST MEDICAL HISTORY: Rheumatoid arthritis, Khoury palsy, hypertension, glaucoma, hypogonadism, osteoarthritis, overactive bladder, retinal vein occlusion, TIA, vitamin D deficiency, appendectomy, cataract surgery. FAMILY HISTORY: [place], diabetes, hypertension. SOCIAL HISTORY: He is retired. Lives locally. . No family at the bedside. One of his sons is a pharmacist. REVIEW OF SYSTEMS: 14-point review otherwise negative. PHYSICAL EXAMINATION: GENERAL: This is an elderly male, who appears his actual age, in no acute distress. VITAL SIGNS: His temperature on admission was 39.3. In the last 24 hours, T-max 39.3 as well. Blood pressure 140/98, 97, 18, 98% room air. SKIN: Warm and dry. No rashes. NODES: No cervical adenopathy. EENT: The conjunctivae are normal. Pupils equal, round, and reactive to light. The oropharynx and oral mucosa are normal. NECK: No masses. No meningismus. No thyromegaly. LUNGS: Clear to auscultation and percussion. BACK: No CVAT. CARDIAC: Soft S1, S2. Regular rate and rhythm. No murmurs or gallops. ABDOMEN: Obese, nontender. No masses. No organomegaly. EXTREMITIES: Trace pitting ankle edema, otherwise none. No venous varicosities. No calf tenderness. LABORATORY DATA: His urine culture from August 20, coagulase-negative Staph. From admission urine and blood cultures, coagulase-negative Staph. His white count 11.8 yesterday, 9.0 today, and on admission 17.5. Hemoglobin 12.7, which is stable. Platelets are 150. He has a minimal left shift on differential. Chemistry panel normal, currently after being 1.8 yesterday for creatinine. Glucose 111. Ferritin is high. Bilirubin 1.4. Transaminases normal. CRP 17.8. His urinalysis, multiple abnormalities suggestive of infection. COVID testing is in process. RADIOLOGY: Renal ultrasound, no abnormalities. ASSESSMENT: 1. Acute febrile illness due to #2, not due to viral nor other bacterial infection. 2. Coagulase-negative Staph urinary tract infection with bacteremia. He had previous isolation in July of the same or very similar organism. Less likely would be Staph bacteremia as a skin contaminant only. 3. Immunocompromised and immunosuppressed as outlined above. 4. Hyperglycemia, resolved. RECOMMENDATIONS:
[2019-10-29 06:17] LABS: Blood Urea Nitrogen 14 mg/dL (9-20); Calcium 8.1 mg/dL (8.4-10.2); Carbon Dioxide 25 mmol/L (22-30); Chloride 105 mmol/L (98-107); Estimated CRCL calculation 90 ml/min; Estimated Glomerular Filt Rate > 60; Glucose 120 mg/dL (75-110); Potassium 3.5 mmol/L (3.4-5.0); Sodium 136 mmol/L (137-145)
--- NOTE | 2019-10-29 06:50 | PC.NURSE ---
Addendum entered by Vandana Romo RN 10/29/19 06:51: Patient transferred to room 303. Original Note: COVID test results negative. notified per Sara Shah RN and patient transferred to Room 316.
--- NOTE | 2019-10-29 06:54 | PC.NURSE ---
Droplet isolation precautions dced.
[2019-10-29] MEDS: ASPIRIN 81 MG ENTERIC TABLET PO (08:02)
[2019-10-29] MEDS: ENOXAPARIN 120 MG/0.8 ML SYRINGE 110 MG SUB-Q ×2 (08:03→20:24)
[2019-10-29] MEDS: FOLIC ACID 1 MG TABLET PO (08:03)
[2019-10-29] MEDS: METOPROLOL TARTRATE 25 MG TABLET PO ×2 (08:03→20:25)
[2019-10-29] MEDS: DICLOFENAC SODIUM 1% 100 GM GEL (*BKC) TOPICAL ×4 (08:04→20:24)
[2019-10-29] MEDS: BRIMONIDINE TARTRATE 0.2% OP SOLN 5 ML BTL 1 DROP EACH EYE ×2 (10:32→20:23)
[2019-10-29] MEDS: TIMOLOL MALEATE 0.5% OP SOLN 5 ML BTL 1 DROP EACH EYE ×2 (10:32→20:25)
--- NOTE | 2019-10-29 12:05 | WPDINFPN2 ---
Progress Note: A&P Assessment and Plan (1) UTI (urinary tract infection): Qualifiers: Hematuria presence: without hematuria Urinary tract infection type: site unspecified Qualified Code(s): N39.0 - Urinary tract infection, site not specified Code(s): N39.0 - Urinary tract infection, site not specified Status: Acute Assessment and Plan: 1. UTI with bacteremia, CNSS not saprophyticus. Clinically better. No prosthetic devices. Susceptibilities of the urine and blood isolates are discordant, which is not surprising 2. RA 3. Immunosuppressed, mtx on hold REC vanc #2 / 7 days, thru 11/02. PharmD dosing, target trough 10-15. Subjective Date/time seen: 10/29/19 12:05 sleepy, offers no complaints Exam Narrative: Exam Narrative: afebrile, bp up, normal vs otherwise Const: General: no acute distress Resp: Effort & Inspection: normal respiratory effort Auscultation: clear to auscultation bilaterally Cardio: Rate: regular rate Rhythm: regular rhythm Heart sounds: no gallops and no murmurs Skin: General skin exam: normal color and no rashes or lesions noted Objective Data Vital Signs Vital Signs: Vital Signs - 24 hr 10/28/19 14:00 10/28/19 16:00 10/28/19 18:00 Temperature 37.1 C 36.2 C L Pulse Rate 96 80 83 Respiratory Rate 18 18 Blood Pressure 127/82 130/94 H Pulse Oximetry 97 96 10/28/19 20:00 10/28/19 20:10 10/29/19 00:00 Temperature 37.1 C 37.2 C Pulse Rate 91 85 81 Respiratory Rate 20 20 Blood Pressure 139/77 153/96 H Pulse Oximetry 96 95 10/29/19 04:00 10/29/19 08:00 10/29/19 08:03 Temperature 36.8 C 37.1 C Pulse Rate 80 77 80 Respiratory Rate 20 20 Blood Pressure 153/89 H 162/95 H Pulse Oximetry 94 95 Intake/Output Intake/Output: Intake & Output 10/26/19 10/27/19 10/28/19 10/29/19 23:59 23:59 23:59 23:59 Intake Total 2250 2680 4220 2140 Output Total 800 1650 1100 1150 Balance 1450 1030 3120 990 Meds/Results Medications: Active Medications Generic Name Dose Route Start Last Admin Trade Name Freq PRN Reason Stop Dose Admin Acetaminophen 650 mg 10/26/19 19:14 10/27/19 23:50 Tylenol Tablet PO 650 mg Q6H PRN Administration Mild Pain (1-3) or Fever Aspirin 81 mg 10/27/19 09:00 10/29/19 08:02 Aspirin Ec PO 81 mg DAILY MART Administration Brimonidine Tartrate 1 drop 10/26/19 21:00 10/29/19 10:32 Alphagan 0.2% Op Soln EACH EYE 1 drop Q12HR MART Administration Diclofenac Sodium 0 applic 10/26/19 21:00 10/29/19 08:04 Voltaren 1% Gel TOPICAL 11/25/19 21:01 1 applic QID MART Administration Enoxaparin Sodium 110 mg 10/26/19 20:00 10/29/19 08:03 Lovenox SUB-Q 110 mg Q12HR MART Administration Folic Acid 1 mg 10/27/19 09:00 10/29/19 08:03 Folic Acid PO 1 mg DAILY MART Administration Vancomycin HCl 1,750 mg in 500 mls @ 250 mls/hr 10/29/19 20:00 Vancomycin 1,750 Mg/D5w 500 Ml IVPB Q12H MART Latanoprost 1 drop 10/26/19 21:00 10/28/19 20:10 Xalatan EACH EYE 1 drop HS MART Administration Levalbuterol HCl 2 puff 10/26/19 17:36 Xopenex Hfa INHALATION Q6HRT PRN Shortness Of Breath Metoprolol Tartrate 25 mg 10/26/19 19:15 10/29/19 08:03 Lopressor PO 25 mg Q12HR MART Administration Oxybutynin Chloride 10 mg 10/27/19 09:00 10/29/19 08:02 Ditropan Xl PO 10 mg DAILY [facility] Administration Timolol Maleate 1 drop 10/26/19 21:00 10/29/19 10:32 Timoptic 0.5% Ophth Soln EACH EYE 1 drop Q12HR MART Administration Radiology Results: ITS Impressions Head CT 10/26/19 10:12 IMPRESSION: Cerebral atherosclerosis and chronic small vessel ischemic changes of the cerebral white matter No acute intracranial finding or significant change since 04/06/2019 Renal Ultrasound 10/27/19 10:31 IMPRESSION: Sonographically unremarkable kidneys. Brain MRI 10/27/19 17:52 IMPRESSION: 1. No acute intracranial abnormalit
--- NOTE | 2019-10-29 12:05 | PM.IMPN ---
Progress Note: A&P Assessment and Plan (1) UTI (urinary tract infection): Qualifiers: Hematuria presence: without hematuria Urinary tract infection type: site unspecified Qualified Code(s): N39.0 - Urinary tract infection, site not specified Code(s): N39.0 - Urinary tract infection, site not specified Status: Acute Assessment and Plan: Urine culture and 2/2 blood cultures grew Staphylococcus. Dr Ramos consulted - appreciate his recommendations. Reviewed his note recommending continue IV Vancomycin through 11/02. Day 08/29. (2) Sepsis: Qualifiers: Sepsis type: sepsis due to unspecified organism Sepsis acute organ dysfunction status: unspecified Qualified Code(s): A41.9 - Sepsis, unspecified organism Code(s): A41.9 - Sepsis, unspecified organism Status: Acute Assessment and Plan: Evident by tachycardia, fever, and leukocytosis on admission. Suspected source is urinary, see above. Afebrile today. COVID-19 testing negative. (3) Atrial fibrillation with rapid ventricular response: Code(s): I48.91 - Unspecified atrial fibrillation Status: Resolved Assessment and Plan: Resolved. In normal sinus rhythm today. May have been related to above. He denies previous history of arrhythmias. He was started on metoprolol tartrate 25mg BID. Anticoagulation was initiated with BID Lovenox for now. Echocardiogram shows grade I diastolic dysfunction, EF 55-60% with mild pulmonary hypertension. (4) Acute kidney injury: Code(s): N17.9 - Acute kidney failure, unspecified Status: Resolved Assessment and Plan: Resolved. IV fluids stopped today. De Leon discontinued, adequate urinary output. Monitor renal function. (5) Metabolic encephalopathy: Code(s): G93.41 - Metabolic encephalopathy Status: Resolved Assessment and Plan: Suspect secondary to infection and acute renal failure. Resolved. Patient back at baseline. MRI brain shows no acute intracranial abnormality. Carotid Dopplers are within normal limits. (6) Rheumatoid arthritis with rheumatoid factor of multiple sites without organ or systems involvement: Code(s): M05.79 - Rheumatoid arthritis with rheumatoid factor of multiple sites without organ or systems involvement Status: Chronic Assessment and Plan: Home methotrexate on hold due to acute infection. (7) Essential hypertension: Code(s): I10 - Essential (primary) hypertension Status: Chronic Assessment and Plan: BPs variable. Home lisinopril and hydrochlorothiazide were on hold given acute kidney injury, will restart home lisinopril in AM since STEVENSON resolved and monitor renal function closely. Was also started on metoprolol for new A fib. Continue to monitor BP and adjust treatment if needed. Subjective Date/time seen: 10/29/19 1100 Interval history: Mr. Zaman is a 73yo M admitted with UTI with bacteremia. He reports feeling tired today but otherwise offers no complaints. He denies any chest pain, shortness of breath, or calf tenderness. He is tolerating oral intake without nausea or vomiting Review of Systems Review of Systems: Narrative: Twelve systems were reviewed with pertinent positives and negatives as per HPI. Exam Narrative: Exam Narrative: General: Male resting supine in bed in no acute distress. HEENT: Normocephalic, EOMI, oral mucosa moist. Cardiovascular: Rate and rhythm regular. Telemetry review shows normal sinus rhythm with rates in the 70s bpm. Respiratory: Lungs clear to auscultation all hill. Respirations even and nonlabored. Abdomen: Soft, non-tender, non-distended, bowel sounds present. Extremities: Peripheral pulses intact. No edema. Neuro:
--- NOTE | 2019-10-29 19:15 | ECHO_ITS ---
Patient Info Name: Shant Zaman Age: 73 years : 1945 Gender: Male Ht: 71 in Wt: 243 lbs BSA: 2.39 m2 HR: 75 bpm BP: 153 / 89 mmHg Heart Rhythm: Right Bundle Branch Block, Sinus Rhythm Technical Quality: Good Exam Date: 10/29/2019 8:41 AM Exam Location: [facility] Pulmonary Patient Status: Inpatient Admit Date: 10/26/2019 Staff Ordering Physician: Yohana Roche PA-C Play Reader: Leonard Lockhart RDCS Attending Provider: Bhupinder Roy MD Referring Physician: Melchor MCFADDEN; Exam Type: CA echo doppler color flow Study Info Indications I48.0 - Paroxysmal atrial fibrillation Complete two-dimensional, color flow and Doppler transthoracic echocardiogram is performed. History/Risk Factors Paroxysmal Afib; HTN, sepsis. Summary 1. Left ventricular chamber dimension is normal. 2. Left ventricular systolic function is normal, estimated at 55-60%. 3. There is mildly increased left ventricular wall thickness. 4. The left ventricular diastolic function is grade I diastolic dysfunction. 5. Left atrial chamber dimension is mildly enlarged. 6. The mitral valve has thickened leaflets and calcified annulus. 7. There is mild to moderate mitral valve regurgitation. 8. There is mild tricuspid valve regurgitation. 9. Mild pulmonary hypertension, estimated pulmonary arterial systolic pressure is 44 mmHg. Left Ventricle Left ventricular chamber dimension is normal. Left ventricular systolic function is normal, estimated at 55-60%. There is mildly increased left ventricular wall thickness. The left ventricular diastolic function is grade I diastolic dysfunction. Right Ventricle Right ventricular chamber dimension is mildly enlarged. Right ventricular systolic function is normal. Left Atria Left atrial chamber dimension is mildly enlarged. Right Atria Right atrial chamber dimension is normal. Atrial Septum Intact interatrial septum visualized by color flow imaging. Aortic Valve The aortic valve is trileaflet. There is mild aortic valve sclerosis. There is no aortic valve stenosis. There is trace aortic valve regurgitation. Pulmonic Valve The pulmonic valve is normal. There is no pulmonic valve stenosis. Mitral Valve The mitral valve has thickened leaflets and calcified annulus. There is no mitral valve stenosis. There is mild to moderate mitral valve regurgitation. Tricuspid Valve The tricuspid valve leaflets are normal. There is no significant tricuspid valve stenosis. There is mild tricuspid valve regurgitation. Mild pulmonary hypertension, estimated pulmonary arterial systolic pressure is 44 mmHg. Pericardium/Pleural The pericardium appears normal. There is no pericardial effusion. Inferior Vena Cava Normal inferior vena cava with >50% collapse upon inspiration consistent with normal right atrial pressure, 5 mmHg. Aorta The aortic root size at the sinus of Valsalva is normal. The prox ascending aorta size is normal. There is mild aortic atherosclerosis. Left Ventricular Outflow Tract Name Value Normal LVOT 2D LVOT Diameter 2.1 cm LVOT Doppler
[2019-10-29] MEDS: LATANOPROST 0.005% OP SOLN 2.5 ML BTL 1 DROP EACH EYE (20:31)
[2019-10-30] VITALS (12 sets, daily range): BP systolic 119–155; BP diastolic 73–91; PULSE 60–79; RESP 16–20; TEMP 36.7–37.3; O2SAT 94–95
[2019-10-30 06:10] LABS: Hematocrit 35.4 % (42.0-52.0); Hemoglobin 12.2 g/dL (14.0-18.0); Mean Corpuscular HGB Conc 34.5 g/dl (32-36); Mean Corpuscular Hemoglobin 35.8 pg (26-34); Mean Corpuscular Volume 103.8 fl (80-100); Mean Platelet Volume 9.5 fl (7.4-10.4); Platelet Count Result 185 k/mm3 (150-375); Red Blood Count 3.41 M/mm3 (4.6-6.20); Red Cell Distribution Width 13.6 % (11.5-14.5); White Blood Count 6.6 K/mm3 (4.5-10.0)
[2019-10-30 06:23] LABS: Blood Urea Nitrogen 13 mg/dL (9-20); Calcium 8.5 mg/dL (8.4-10.2); Carbon Dioxide 29 mmol/L (22-30); Chloride 106 mmol/L (98-107); Estimated CRCL calculation 90 ml/min; Estimated Glomerular Filt Rate > 60; Glucose 97 mg/dL (75-110); Magnesium 1.8 mg/dL (1.6-2.3); Phosphorus 3.3 mg/dL (2.5-4.5); Potassium 3.3 mmol/L (3.4-5.0); Sodium 138 mmol/L (137-145)
[2019-10-30] MEDS: POTASSIUM CHLORIDE 20 MEQ TABLET 40 MEQ PO (07:50)
[2019-10-30] MEDS: TIMOLOL MALEATE 0.5% OP SOLN 5 ML BTL 1 DROP EACH EYE ×2 (08:00→22:25)
[2019-10-30] MEDS: DICLOFENAC SODIUM 1% 100 GM GEL (*BKC) TOPICAL ×4 (08:00→22:16)
[2019-10-30] MEDS: ENOXAPARIN 120 MG/0.8 ML SYRINGE 110 MG SUB-Q ×2 (08:01→22:24)
[2019-10-30] MEDS: METOPROLOL TARTRATE 25 MG TABLET PO ×2 (08:02→22:25)
[2019-10-30] MEDS: FOLIC ACID 1 MG TABLET PO (08:02)
[2019-10-30] MEDS: ASPIRIN 81 MG ENTERIC TABLET PO (08:02)
[2019-10-30] MEDS: BRIMONIDINE TARTRATE 0.2% OP SOLN 5 ML BTL 1 DROP EACH EYE ×2 (08:03→22:14)
--- NOTE | 2019-10-30 10:49 | PM.IMPN ---
Progress Note: A&P Assessment and Plan (1) UTI (urinary tract infection): Qualifiers: Hematuria presence: without hematuria Urinary tract infection type: site unspecified Qualified Code(s): N39.0 - Urinary tract infection, site not specified Code(s): N39.0 - Urinary tract infection, site not specified Status: Acute Assessment and Plan: Urine culture and 2/2 blood cultures grew Staphylococcus. Dr Ramos consulted - appreciate his recommendations. Reviewed his note recommending continue IV Vancomycin through 11/02. Day 09/26. (2) Sepsis: Qualifiers: Sepsis acute organ dysfunction status: unspecified Sepsis type: sepsis due to unspecified organism Qualified Code(s): A41.9 - Sepsis, unspecified organism Code(s): A41.9 - Sepsis, unspecified organism Status: Acute Assessment and Plan: Evident by tachycardia, fever, and leukocytosis on admission. Suspected source is urinary, see above. Afebrile today. COVID-19 testing negative. (3) Atrial fibrillation with rapid ventricular response: Code(s): I48.91 - Unspecified atrial fibrillation Status: Resolved Assessment and Plan: Resolved. In normal sinus rhythm still today. May have been related to above. He denies previous history of arrhythmias; possible old TIA years ago but MRI brain this admission shows no old CVAs. He was started on metoprolol tartrate 25mg BID which he is tolerating well. Anticoagulation was initiated with BID Lovenox for now. Plan for short term anticoagulation and continue monitoring with telemetry for now, consider longer Holter monitor at discharge. Echocardiogram shows grade I diastolic dysfunction, EF 55-60% with mild pulmonary hypertension. (4) Metabolic encephalopathy: Code(s): G93.41 - Metabolic encephalopathy Status: Resolved Assessment and Plan: Resolved. Suspect secondary to infection and acute renal failure. Patient back at baseline. MRI brain shows no acute intracranial abnormality. Carotid Dopplers are within normal limits. (5) Rheumatoid arthritis with rheumatoid factor of multiple sites without organ or systems involvement: Code(s): M05.79 - Rheumatoid arthritis with rheumatoid factor of multiple sites without organ or systems involvement Status: Chronic Assessment and Plan: Home methotrexate on hold due to acute infection. (6) Essential hypertension: Code(s): I10 - Essential (primary) hypertension Status: Chronic Assessment and Plan: BPs variable but better today. Home lisinopril resumed since STEVENSON resolved, monitor renal function closely. Was also started on metoprolol for new A fib. Home HCTZ held due to STEVENSON. Continue to monitor BP and adjust treatment if needed. Subjective Date/time seen: 10/30/19 10:35 Interval history: Mr. Zaman is a 73yo M admitted with UTI with bacteremia. He reports feeling okay today and offers no complaints. He denies any chest pain, shortness of breath, or calf tenderness. He has tolerated breakfast without nausea, vomiting, or abdominal pain. Exam Narrative: Exam Narrative: General: Male resting supine in bed in no acute distress. HEENT: Normocephalic, EOMI, oral mucosa moist. Cardiovascular: Rate and rhythm regular. Telemetry review shows normal sinus rhythm with rates in the 70s bpm. Respiratory: Lungs clear to auscultation all hill. Respirations even and nonlabored. Abdomen: Soft, non-tender, non-distended, bowel sounds present. Extremities: Peripheral pulses intact. No edema. Neuro: No focal neurological deficits. Speech is clear. Objective Data Vital Signs Vital Signs: Last Vital Signs Temp 98.0 F 10/30/19 07:54 Pulse 73 10/30/19 12:00 Resp 16 10/30/19 07:54 BP 142
--- NOTE | 2019-10-30 13:35 | WPDINFPN2 ---
Progress Note: A&P Assessment and Plan (1) UTI (urinary tract infection): Qualifiers: Hematuria presence: without hematuria Urinary tract infection type: site unspecified Qualified Code(s): N39.0 - Urinary tract infection, site not specified Code(s): N39.0 - Urinary tract infection, site not specified Status: Acute Assessment and Plan: 1. UTI with bacteremia, CNSS not saprophyticus. Clinically better. No prosthetic devices. 2. RA 3. Immunosuppressed, mtx on hold REC vanc #3 / 7 days, thru 11/02. PharmD dosing, target trough 10-15. Oral therapy unfortunately not effective. Subjective Date/time seen: 10/30/19 13:35 Interval history: no complaints Exam Narrative: Exam Narrative: afebrile Const: General: no acute distress Resp: Effort & Inspection: normal respiratory effort Auscultation: clear to auscultation bilaterally Cardio: Rate: regular rate Rhythm: regular rhythm Heart sounds: no murmurs : Other: no cvat Objective Data Vital Signs Vital Signs: Vital Signs - 24 hr 10/29/19 14:00 10/29/19 16:00 10/29/19 20:00 Temperature 37.2 C 37.1 C 36.9 C Pulse Rate 73 68 75 Respiratory Rate 20 20 20 Blood Pressure 147/82 H 117/83 153/75 H Pulse Oximetry 98 97 98 10/29/19 20:25 10/30/19 00:00 10/30/19 04:00 Temperature 36.9 C 36.8 C Pulse Rate 75 64 77 Respiratory Rate 20 20 Blood Pressure 119/78 139/73 Pulse Oximetry 95 94 10/30/19 07:54 10/30/19 08:00 10/30/19 08:02 Temperature 36.7 C Pulse Rate 67 65 67 Respiratory Rate 16 Blood Pressure 142/87 H Pulse Oximetry 95 10/30/19 12:00 10/30/19 13:31 Temperature 37.3 C Pulse Rate 73 71 Respiratory Rate 16 Blood Pressure 132/83 Pulse Oximetry 95 Intake/Output Intake/Output: Intake & Output 10/27/19 10/28/19 10/29/19 10/30/19 23:59 23:59 23:59 23:59 Intake Total 2680 4220 4785 1480 Output Total 1650 1100 2050 1700 Balance 1030 3120 2735 -220 Meds/Results Medications: Active Medications Generic Name Dose Route Start Last Admin Trade Name Freq PRN Reason Stop Dose Admin Acetaminophen 650 mg 10/26/19 19:14 10/27/19 23:50 Tylenol Tablet PO 650 mg Q6H PRN Administration Mild Pain (1-3) or Fever Aspirin 81 mg 10/27/19 09:00 10/30/19 08:02 Aspirin Ec PO 81 mg DAILY MART Administration Brimonidine Tartrate 1 drop 10/26/19 21:00 10/30/19 08:03 Alphagan 0.2% Op Soln EACH EYE 1 drop Q12HR MART Administration Diclofenac Sodium 0 applic 10/26/19 21:00 10/30/19 08:00 Voltaren 1% Gel TOPICAL 11/25/19 21:01 1 applic QID MART Administration Enoxaparin Sodium 110 mg 10/26/19 20:00 10/30/19 08:01 Lovenox SUB-Q 110 mg Q12HR MART Administration Folic Acid 1 mg 10/27/19 09:00 10/30/19 08:02 Folic Acid PO 1 mg DAILY MART Administration Vancomycin HCl 1,750 mg in 500 mls @ 250 mls/hr 10/29/19 20:00 10/30/19 09:50 Vancomycin 1,750 Mg/D5w 500 Ml IVPB Infused Q12H MART Infusion Latanoprost 1 drop 10/26/19 21:00 10/29/19 20:31 Xalatan EACH EYE 1 drop HS MART Administration Levalbuterol HCl 2 puff 10/26/19 17:36 Xopenex Hfa INHALATION Q6HRT PRN Shortness Of Breath Metoprolol Tartrate 25 mg 10/26/19 19:15 10/30/19 08:02 Lopressor PO 25 mg Q12HR MART Administration Oxybutynin Chloride 10 mg 10/27/19 09:00 10/30/19 08:02 Ditropan Xl PO 10 mg DAILY MART Administration Timolol Maleate 1 drop 10/26/19 21:00 10/30/19 08:00 Timoptic 0.5% Ophth Soln EACH EYE 1 drop Q12HR MART Administration Radiology Results: ITS Impressions Head CT 10/26/19 10:12 IMPRESSION: Cerebral atherosclerosis and chronic small vessel ischemic changes of the cerebral white matter No acute intracranial finding or significant change since 04/06/2019 Renal Ultrasound 10/27/19 10:31 IMPRESSION: Sonographically unremarkable kidneys. Brain MRI 10/27/19 17:52 IMPRESSION: 1
[2019-10-30] MEDS: LATANOPROST 0.005% OP SOLN 2.5 ML BTL 1 DROP EACH EYE (22:25)
[2019-10-31] VITALS (14 sets, daily range): BP systolic 120–155; BP diastolic 62–90; PULSE 60–83; RESP 16–20; TEMP 36.3–36.8; O2SAT 93–100
[2019-10-31 07:29] LABS: Hematocrit 38.4 % (42.0-52.0); Mean Corpuscular HGB Conc 33.9 g/dl (32-36); Mean Corpuscular Hemoglobin 35.1 pg (26-34); Mean Corpuscular Volume 103.8 fl (80-100); Mean Platelet Volume 9.3 fl (7.4-10.4); Platelet Count Result 231 k/mm3 (150-375); Red Cell Distribution Width 13.7 % (11.5-14.5); White Blood Count 7.2 K/mm3 (4.5-10.0)
[2019-10-31 07:37] LABS: Hemoglobin A1C 6.2 % (<5.7)
[2019-10-31 07:39] LABS: Blood Urea Nitrogen 14 mg/dL (9-20); Calcium 9.1 mg/dL (8.4-10.2); Carbon Dioxide 30 mmol/L (22-30); Chloride 105 mmol/L (98-107); Estimated CRCL calculation 80 ml/min; Estimated Glomerular Filt Rate > 60; Glucose 106 mg/dL (75-110); Potassium 3.6 mmol/L (3.4-5.0); Sodium 139 mmol/L (137-145)
[2019-10-31 08:12] LABS: Vancomycin Trough 19.5 ug/mL (10.0-20.0)
[2019-10-31] MEDS: ASPIRIN 81 MG ENTERIC TABLET PO (09:07)
[2019-10-31] MEDS: FOLIC ACID 1 MG TABLET PO (09:07)
[2019-10-31] MEDS: METOPROLOL TARTRATE 25 MG TABLET PO ×2 (09:07→20:56)
[2019-10-31] MEDS: ENOXAPARIN 120 MG/0.8 ML SYRINGE 110 MG SUB-Q ×2 (09:08→20:54)
[2019-10-31] MEDS: TIMOLOL MALEATE 0.5% OP SOLN 5 ML BTL 1 DROP EACH EYE ×2 (09:09→20:56)
[2019-10-31] MEDS: BRIMONIDINE TARTRATE 0.2% OP SOLN 5 ML BTL 1 DROP EACH EYE ×2 (09:09→20:56)
[2019-10-31] MEDS: DICLOFENAC SODIUM 1% 100 GM GEL (*BKC) TOPICAL ×3 (09:14→21:02)
--- NOTE | 2019-10-31 14:47 | PM.IMPN ---
Progress Note: A&P Assessment and Plan (1) UTI (urinary tract infection): Qualifiers: Hematuria presence: without hematuria Urinary tract infection type: site unspecified Qualified Code(s): N39.0 - Urinary tract infection, site not specified Code(s): N39.0 - Urinary tract infection, site not specified Status: Acute Assessment and Plan: Urine culture and 2/2 blood cultures grew Staphylococcus. Dr Ramos consulted - appreciate his recommendations. Reviewed his note recommending continue IV Vancomycin through 11/02. Day 10/27. (2) Sepsis: Qualifiers: Sepsis type: sepsis due to unspecified organism Sepsis acute organ dysfunction status: unspecified Qualified Code(s): A41.9 - Sepsis, unspecified organism Code(s): A41.9 - Sepsis, unspecified organism Status: Acute Assessment and Plan: Evident by tachycardia, fever, and leukocytosis on admission. Suspected source is urinary, see above. Afebrile today. COVID-19 testing negative. (3) Atrial fibrillation with rapid ventricular response: Code(s): I48.91 - Unspecified atrial fibrillation Status: Resolved Assessment and Plan: Resolved. In normal sinus rhythm still today. May have been related to above. He denies previous history of arrhythmias; possible old TIA years ago but MRI brain this admission shows no old CVAs. He was started on metoprolol tartrate 25mg BID which he is tolerating well. Anticoagulation was initiated with BID Lovenox for now. Plan for short term anticoagulation and continue monitoring with telemetry for now, consider longer Holter monitor at discharge. Echocardiogram shows grade I diastolic dysfunction, EF 55-60% with mild pulmonary hypertension. (4) Metabolic encephalopathy: Code(s): G93.41 - Metabolic encephalopathy Status: Resolved Assessment and Plan: Resolved. Suspect secondary to infection and acute renal failure. Patient back at baseline. MRI brain shows no acute intracranial abnormality. Carotid Dopplers are within normal limits. (5) Rheumatoid arthritis with rheumatoid factor of multiple sites without organ or systems involvement: Code(s): M05.79 - Rheumatoid arthritis with rheumatoid factor of multiple sites without organ or systems involvement Status: Chronic Assessment and Plan: Home methotrexate on hold due to acute infection. (6) Essential hypertension: Code(s): I10 - Essential (primary) hypertension Status: Chronic Assessment and Plan: BPs variable but better today. Home lisinopril resumed since STEVENSON resolved, monitor renal function closely. Was also started on metoprolol for new A fib. Home HCTZ held due to STEVENSON. Continue to monitor BP and adjust treatment if needed. Subjective Date/time seen: 10/31/19 1100 Interval history: Mr. Zaman is a 73yo M admitted with UTI with bacteremia. He tells me he feels well today and offers no complaints. He denies any chest pain, shortness of breath, or calf tenderness. He has tolerated breakfast without nausea, vomiting, or abdominal pain. Review of Systems Review of Systems: Narrative: Twelve systems were reviewed with pertinent positives and negatives as per HPI. Exam Narrative: Exam Narrative: General: Male resting supine in bed in no acute distress. HEENT: Normocephalic, EOMI, oral mucosa moist. Cardiovascular: Rate and rhythm regular. Telemetry review shows normal sinus rhythm with rates in the 70s bpm. Respiratory: Lungs clear to auscultation all hill. Respirations even and nonlabored. Abdomen: Soft, non-tender, non-distended, bowel sounds present. Extremities: Peripheral pulses intact. No edema. Neuro: No focal neurological deficits. Speech is clear. Objective Data Vital
--- NOTE | 2019-10-31 15:18 | WPDINFPN2 ---
Progress Note: A&P Assessment and Plan (1) UTI (urinary tract infection): Qualifiers: Hematuria presence: without hematuria Urinary tract infection type: site unspecified Qualified Code(s): N39.0 - Urinary tract infection, site not specified Code(s): N39.0 - Urinary tract infection, site not specified Status: Acute Assessment and Plan: 1. UTI with bacteremia, CNSS not saprophyticus. Clinically better. No prosthetic devices. 2. RA 3. Immunosuppressed, mtx on hold REC vanc #4 / 7 days, thru 11/02 AM dose. PharmD has adjusted for high trough. No oral therapy planned. Ok discharge AM 11/02, hold Mtx for 4 weeks thereafter if possible. Subjective Date/time seen: 10/31/19 15:18 Interval history: no complaints Exam Narrative: Exam Narrative: afebrile Const: General: no acute distress Skin: General skin exam: normal color and no rashes or lesions noted Other: IV site without tenderness or cord Objective Data Vital Signs Vital Signs: Vital Signs - 24 hr 10/30/19 16:00 10/30/19 16:28 10/30/19 20:00 Temperature 37.2 C Pulse Rate 69 60 73 Respiratory Rate 16 Blood Pressure 144/87 H Pulse Oximetry 95 10/30/19 22:00 10/30/19 22:25 10/31/19 00:00 Temperature 37.1 C Pulse Rate 79 76 76 Respiratory Rate 18 Blood Pressure 155/91 H Pulse Oximetry 94 10/31/19 02:00 10/31/19 04:00 10/31/19 06:00 Temperature 36.7 C 36.8 C Pulse Rate 68 66 67 Respiratory Rate 20 18 Blood Pressure 120/62 147/62 H Pulse Oximetry 94 95 10/31/19 08:00 10/31/19 09:07 10/31/19 10:00 Temperature 36.8 C Pulse Rate 68 60 68 Respiratory Rate 16 Blood Pressure 144/76 H Pulse Oximetry 93 10/31/19 12:00 10/31/19 14:00 Temperature 36.3 C L Pulse Rate 67 71 Respiratory Rate 18 Blood Pressure 146/69 H Pulse Oximetry 97 Intake/Output Intake/Output: Intake & Output 10/28/19 10/29/19 10/30/19 10/31/19 23:59 23:59 23:59 23:59 Intake Total 8334 2641 6130 1080 Output Total 1100 2050 1700 1700 Balance 2294 6534 0459 -141 Meds/Results Medications: Active Medications Generic Name Dose Route Start Last Admin Trade Name Freq PRN Reason Stop Dose Admin Acetaminophen 650 mg 10/26/19 19:14 10/27/19 23:50 Tylenol Tablet PO 650 mg Q6H PRN Administration Mild Pain (1-3) or Fever Aspirin 81 mg 10/27/19 09:00 10/31/19 09:07 Aspirin Ec PO 81 mg DAILY MART Administration Brimonidine Tartrate 1 drop 10/26/19 21:00 10/31/19 09:09 Alphagan 0.2% Op Soln EACH EYE 1 drop Q12HR MART Administration Diclofenac Sodium 0 applic 10/26/19 21:00 10/31/19 12:08 Voltaren 1% Gel TOPICAL 11/25/19 21:01 Not Given QID MART Enoxaparin Sodium 110 mg 10/26/19 20:00 10/31/19 09:08 Lovenox SUB-Q 110 mg Q12HR MART Administration Folic Acid 1 mg 10/27/19 09:00 10/31/19 09:07 Folic Acid PO 1 mg DAILY MART Administration Vancomycin HCl 1,750 mg in 500 mls @ 250 mls/hr 10/31/19 15:00 10/31/19 15:03 Vancomycin 1,750 Mg/D5w 500 Ml IVPB 250 mls/hr Q18H MART Administration Latanoprost 1 drop 10/26/19 21:00 10/30/19 22:25 Xalatan EACH EYE 1 drop HS MART Administration Levalbuterol HCl 2 puff 10/26/19 17:36 Xopenex Hfa INHALATION Q6HRT PRN Shortness Of Breath Metoprolol Tartrate 25 mg 10/26/19 19:15 10/31/19 09:07 Lopressor PO 25 mg Q12HR MART Administration Oxybutynin Chloride 10 mg 10/27/19 09:00 10/31/19 09:06 Ditropan Xl PO 10 mg DAILY MART Administration Timolol Maleate 1 drop 10/26/19 21:00 10/31/19 09:09 Timoptic 0.5% Ophth Soln EACH EYE 1 drop Q12HR MART Administration Radiology Results: ITS Impressions Head CT 10/26/19 10:12 IMPRESSION: Cerebral atherosclerosis and chronic small vessel ischemic changes of the cerebral white matter No acute intracranial finding or significant change since 04/06/2019 Renal Ultrasound 10/27/19 10:31
[2019-10-31] MEDS: LATANOPROST 0.005% OP SOLN 2.5 ML BTL 1 DROP EACH EYE (21:03)
[2019-11-01] VITALS (13 sets, daily range): BP systolic 133–164; BP diastolic 67–90; PULSE 71–91; RESP 18–20; TEMP 36.6–37.6; O2SAT 94–97
[2019-11-01] MEDS: ENOXAPARIN 120 MG/0.8 ML SYRINGE 110 MG SUB-Q ×2 (09:16→20:49)
[2019-11-01] MEDS: ASPIRIN 81 MG ENTERIC TABLET PO (09:17)
[2019-11-01] MEDS: FOLIC ACID 1 MG TABLET PO (09:17)
[2019-11-01] MEDS: BRIMONIDINE TARTRATE 0.2% OP SOLN 5 ML BTL 1 DROP EACH EYE ×2 (09:17→20:49)
[2019-11-01] MEDS: TIMOLOL MALEATE 0.5% OP SOLN 5 ML BTL 1 DROP EACH EYE ×2 (09:17→20:49)
[2019-11-01] MEDS: METOPROLOL TARTRATE 25 MG TABLET PO ×2 (09:17→21:08)
[2019-11-01] MEDS: DICLOFENAC SODIUM 1% 100 GM GEL (*BKC) TOPICAL ×4 (09:18→20:48)
[2019-11-01] MEDS: ACETAMINOPHEN 325 MG TABLET 650 MG PO ×2 (12:17→19:09)
--- NOTE | 2019-11-01 14:28 | PM.IMPN ---
Progress Note: A&P Assessment and Plan (1) UTI (urinary tract infection): Qualifiers: Hematuria presence: without hematuria Urinary tract infection type: site unspecified Qualified Code(s): N39.0 - Urinary tract infection, site not specified Code(s): N39.0 - Urinary tract infection, site not specified Status: Acute Assessment and Plan: Urine culture and 2/2 blood cultures grew Staphylococcus. Dr Ramos consulted - appreciate his recommendations. Reviewed his note recommending continue IV Vancomycin through 11/02. Day 11/26. Anticipate discharge 11/02 after AM Vanc dose per Dr Ramos's recommendations. (2) Sepsis: Qualifiers: Sepsis acute organ dysfunction status: unspecified Sepsis type: sepsis due to unspecified organism Qualified Code(s): A41.9 - Sepsis, unspecified organism Code(s): A41.9 - Sepsis, unspecified organism Status: Acute Assessment and Plan: Evident by tachycardia, fever, and leukocytosis on admission. Suspected source is urinary, see above. Afebrile today. COVID-19 testing negative. (3) Atrial fibrillation with rapid ventricular response: Code(s): I48.91 - Unspecified atrial fibrillation Status: Resolved Assessment and Plan: Resolved. In normal sinus rhythm still today. May have been related to above. He denies previous history of arrhythmias; possible old TIA years ago but MRI brain this admission shows no old CVAs. He was started on metoprolol tartrate 25mg BID which he is tolerating well. Anticoagulation was initiated with BID Lovenox for now. Plan for short term anticoagulation and continue monitoring with telemetry for now, consider longer Holter monitor at discharge. Echocardiogram shows grade I diastolic dysfunction, EF 55-60% with mild pulmonary hypertension. (4) Metabolic encephalopathy: Code(s): G93.41 - Metabolic encephalopathy Status: Resolved Assessment and Plan: Resolved. Suspect secondary to infection and acute renal failure. Patient back at baseline. MRI brain shows no acute intracranial abnormality. Carotid Dopplers are within normal limits. (5) Rheumatoid arthritis with rheumatoid factor of multiple sites without organ or systems involvement: Code(s): M05.79 - Rheumatoid arthritis with rheumatoid factor of multiple sites without organ or systems involvement Status: Chronic Assessment and Plan: Home methotrexate on hold due to acute infection. (6) Essential hypertension: Code(s): I10 - Essential (primary) hypertension Status: Chronic Assessment and Plan: BPs variable but stable. Home lisinopril resumed since STEVENSON resolved, monitor renal function closely. Was also started on metoprolol for new A fib. Home HCTZ held due to STEVENSON. Continue to monitor BP and adjust treatment if needed. Subjective Date/time seen: 11/01/19 14:30 Interval history: Mr. Zaman is a 73yo M admitted with UTI with bacteremia. He tells me he feels well today and offers no complaints. He denies any chest pain, shortness of breath, or calf tenderness. He has tolerated breakfast without nausea, vomiting, or abdominal pain. In good spirits and looking forward to discharge Sunday. Review of Systems Review of Systems: Narrative: Twelve systems were reviewed with pertinent positives and negatives as per HPI. Exam Narrative: Exam Narrative: General: Male resting sitting up in bedside chair in no acute distress. HEENT: Normocephalic, EOMI, oral mucosa moist. Cardiovascular: Rate and rhythm regular. Telemetry review shows normal sinus rhythm HR 76 bpm at time of my exam. Respiratory: Lungs clear to auscultation in all hill. Respirations even and nonlabored. Abdomen: Soft, non-tender, non-distended, renetta
[2019-11-01] MEDS: LATANOPROST 0.005% OP SOLN 2.5 ML BTL 1 DROP EACH EYE (20:50)
--- NOTE | 2019-11-01 21:49 | PC.NURSE ---
patient complains of right foot pain. No PRN pain medication available. Dr. Kang contacted with request for pain medication. Awaiting orders.
[2019-11-01] MEDS: IBUPROFEN 400 MG TABLET PO (22:20)
[2019-11-02] VITALS (14 sets, daily range): BP systolic 110–178; BP diastolic 58–95; PULSE 70–103; RESP 18–20; TEMP 36.6–37.3; O2SAT 91–100
[2019-11-02] MEDS: ACETAMINOPHEN 325 MG TABLET 650 MG PO ×2 (02:23→07:57)
[2019-11-02 06:21] LABS: Blood Urea Nitrogen 18 mg/dL (9-20); Carbon Dioxide 29 mmol/L (22-30); Chloride 101 mmol/L (98-107); Estimated CRCL calculation 72 ml/min; Estimated Glomerular Filt Rate > 60; Glucose 129 mg/dL (75-110); Magnesium 1.7 mg/dL (1.6-2.3); Phosphorus 3.7 mg/dL (2.5-4.5); Potassium 3.3 mmol/L (3.4-5.0); Sodium 137 mmol/L (137-145)
[2019-11-02] MEDS: MAGNESIUM SULF 2 GM/WATER 50ML 2 GM/50 ML BAG IVPB (07:56)
[2019-11-02] MEDS: POTASSIUM CHLORIDE 20 MEQ TABLET PO (07:57)
[2019-11-02] MEDS: ENOXAPARIN 120 MG/0.8 ML SYRINGE 110 MG SUB-Q ×2 (08:02→21:28)
[2019-11-02] MEDS: BRIMONIDINE TARTRATE 0.2% OP SOLN 5 ML BTL 1 DROP EACH EYE ×2 (08:02→21:22)
[2019-11-02] MEDS: DICLOFENAC SODIUM 1% 100 GM GEL (*BKC) TOPICAL ×4 (08:02→21:29)
[2019-11-02] MEDS: TIMOLOL MALEATE 0.5% OP SOLN 5 ML BTL 1 DROP EACH EYE ×2 (08:03→21:22)
[2019-11-02] MEDS: FOLIC ACID 1 MG TABLET PO (08:03)
[2019-11-02] MEDS: METOPROLOL TARTRATE 25 MG TABLET PO ×2 (08:03→21:28)
[2019-11-02] MEDS: ASPIRIN 81 MG ENTERIC TABLET PO (08:04)
--- NOTE | 2019-11-02 11:30 | P.PNIM_ITS ---
Progress Note: A&P Assessment and Plan (1) UTI (urinary tract infection): Qualifiers: Hematuria presence: without hematuria Urinary tract infection type: site unspecified Qualified Code(s): N39.0 - Urinary tract infection, site not specified Code(s): N39.0 - Urinary tract infection, site not specified Status: Acute Assessment and Plan: * Urine culture and 2/2 blood cultures grew Staphylococcus. * Dr Ramos consulted - appreciate his recommendations. Reviewed his note recommending continue IV Vancomycin through 11/02. Day 12/27. * Anticipate discharge tomorrow 11/02 after AM Vanc dose per Dr Ramos's recommendations. (2) Sepsis: Qualifiers: Sepsis acute organ dysfunction status: unspecified Sepsis type: sepsis due to unspecified organism Qualified Code(s): A41.9 - Sepsis, unspecified organism Code(s): A41.9 - Sepsis, unspecified organism Status: Resolved Assessment and Plan: * Evident by tachycardia, fever, and leukocytosis on admission. Suspected source is urinary, see above. Afebrile today. * COVID-19 testing negative. (3) Atrial fibrillation with rapid ventricular response: Code(s): I48.91 - Unspecified atrial fibrillation Status: Resolved Assessment and Plan: * Resolved. In normal sinus rhythm still today. May have been related to above. * He denies previous history of arrhythmias; possible old TIA years ago but MRI brain this admission shows no old CVAs. * He was started on metoprolol tartrate 25mg BID which he is tolerating well. * Anticoagulation was initiated with BID Lovenox for now. Plan for short term anticoagulation and continue monitoring with telemetry for now, consider longer Holter monitor at discharge. No further A fib events on tele. * Echocardiogram shows grade I diastolic dysfunction, EF 55-60% with mild pul monary hypertension. (4) Metabolic encephalopathy: Code(s): G93.41 - Metabolic encephalopathy Status: Resolved Assessment and Plan: * Resolved. Suspect secondary to infection and acute renal failure. Patient back at baseline. * MRI brain shows no acute intracranial abnormality. Carotid Dopplers are within normal limits. (5) Rheumatoid arthritis with rheumatoid factor of multiple sites without organ or systems involvement: Code(s): M05.79 - Rheumatoid arthritis with rheumatoid factor of multiple sites without organ or systems involvement Status: Chronic Assessment and Plan: * Home methotrexate on hold due to acute infection. Dr Ramos recommends holding MTX for 4 more weeks. Patient requests I contact his clipper and turner tomorrow because he is having more RA pain now that his MTX is held. (6) Essential hypertension: Code(s): I10 - Essential (primary) hypertension Status: Chronic Assessment and Plan: * BPs stable today. Home lisinopril resumed since STEVENSON resolved, monitor renal function closely. Was also started on metoprolol for new A fib. * Home HCTZ held due to STEVENSON. * Continue to monitor BP and adjust treatment if needed. (7) Hypokalemia: Code(s): E87.6 - Hypokalemia Status: Acute Assessment and Plan: * Mild hypokalemia, replace K and Mg orally. Recheck in AM. Subjective Date/time seen: 11/02/19 0900 Interval history: Mr. Zaman is a 73yo M admitted with UTI with bacteremia. He tells me he fee
--- NOTE | 2019-11-02 11:30 | PM.IMPN ---
Progress Note: A&P Assessment and Plan (1) UTI (urinary tract infection): Qualifiers: Hematuria presence: without hematuria Urinary tract infection type: site unspecified Qualified Code(s): N39.0 - Urinary tract infection, site not specified Code(s): N39.0 - Urinary tract infection, site not specified Status: Acute Assessment and Plan: Urine culture and 2/2 blood cultures [address]aphylococcus. Dr Ramos consulted - appreciate his recommendations. Reviewed his note recommending continue IV Vancomycin through 11/02. Day 12/27. Anticipate discharge tomorrow 11/02 after AM Vanc dose per Dr Ramos's recommendations. (2) Sepsis: Qualifiers: Sepsis acute organ dysfunction status: unspecified Sepsis type: sepsis due to unspecified organism Qualified Code(s): A41.9 - Sepsis, unspecified organism Code(s): A41.9 - Sepsis, unspecified organism Status: Resolved Assessment and Plan: Evident by tachycardia, fever, and leukocytosis on admission. Suspected source is urinary, see above. Afebrile today. COVID-19 testing negative. (3) Atrial fibrillation with rapid ventricular response: Code(s): I48.91 - Unspecified atrial fibrillation Status: Resolved Assessment and Plan: Resolved. In normal sinus rhythm still today. May have been related to above. He denies previous history of arrhythmias; possible old TIA years ago but MRI brain this admission shows no old CVAs. He was started on metoprolol tartrate 25mg BID which he is tolerating well. Anticoagulation was initiated with BID Lovenox for now. Plan for short term anticoagulation and continue monitoring with telemetry for now, consider longer Holter monitor at discharge. No further A fib events on tele. Echocardiogram shows grade I diastolic dysfunction, EF 55-60% with mild pulmonary hypertension. (4) Metabolic encephalopathy: Code(s): G93.41 - Metabolic encephalopathy Status: Resolved Assessment and Plan: Resolved. Suspect secondary to infection and acute renal failure. Patient back at baseline. MRI brain shows no acute intracranial abnormality. Carotid Dopplers are within normal limits. (5) Rheumatoid arthritis with rheumatoid factor of multiple sites without organ or systems involvement: Code(s): M05.79 - Rheumatoid arthritis with rheumatoid factor of multiple sites without organ or systems involvement Status: Chronic Assessment and Plan: Home methotrexate on hold due to acute infection. Dr Ramos recommends holding MTX for 4 more weeks. Patient requests I contact his seat mender tomorrow because he is having more RA pain now that his MTX is held. (6) Essential hypertension: Code(s): I10 - Essential (primary) hypertension Status: Chronic Assessment and Plan: BPs stable today. Home lisinopril resumed since STEVENSON resolved, monitor renal function closely. Was also started on metoprolol for new A fib. Home HCTZ held due to STEVENSON. Continue to monitor BP and adjust treatment if needed. (7) Hypokalemia: Code(s): E87.6 - Hypokalemia Status: Acute Assessment and Plan: Mild hypokalemia, replace K and Mg orally. Recheck in AM. Subjective Date/time seen: 11/02/19 0900 Interval history: Mr. Zaman is a 73yo M admitted with UTI with bacteremia. He tells me he feels well today and offers no complaints. Was able to get some sleep last night. He denies any chest pain, shortness of breath, cough, or calf tenderness. Eating some breakfast and has no nausea or vomiting. Review of Systems Review of Systems: Narrative: Twelve systems were reviewed with pertinent positives and negatives as per HPI. Exam Narrative: Exam Narrative: General:
[2019-11-02 20:58] LABS: Vancomycin Trough 12.7 ug/mL (10.0-20.0)
[2019-11-02] MEDS: LATANOPROST 0.005% OP SOLN 2.5 ML BTL 1 DROP EACH EYE (21:23)
[2019-11-03] VITALS (8 sets, daily range): BP systolic 141–171; BP diastolic 74–95; PULSE 67–94; RESP 16–18; TEMP 36.8–37.1; O2SAT 94–97
[2019-11-03] MEDS: ACETAMINOPHEN 325 MG TABLET 650 MG PO (01:43)
[2019-11-03 05:54] LABS: Blood Urea Nitrogen 15 mg/dL (9-20); Calcium 8.8 mg/dL (8.4-10.2); Carbon Dioxide 31 mmol/L (22-30); Chloride 104 mmol/L (98-107); Estimated CRCL calculation 78 ml/min; Estimated Glomerular Filt Rate > 60; Glucose 105 mg/dL (75-110); Magnesium 1.9 mg/dL (1.6-2.3); Potassium 3.4 mmol/L (3.4-5.0); Sodium 137 mmol/L (137-145)
[2019-11-03 07:49] LABS: Glucose Point of Care 109 (65-105)
[2019-11-03] MEDS: POTASSIUM CHLORIDE 20 MEQ TABLET 40 MEQ PO (08:57)
[2019-11-03] MEDS: ENOXAPARIN 120 MG/0.8 ML SYRINGE 110 MG SUB-Q (08:58)
[2019-11-03] MEDS: FOLIC ACID 1 MG TABLET PO (08:58)
[2019-11-03] MEDS: METOPROLOL TARTRATE 25 MG TABLET PO (08:58)
[2019-11-03] MEDS: ASPIRIN 81 MG ENTERIC TABLET PO (08:58)
[2019-11-03] MEDS: DICLOFENAC SODIUM 1% 100 GM GEL (*BKC) TOPICAL (08:59)
[2019-11-03] MEDS: TIMOLOL MALEATE 0.5% OP SOLN 5 ML BTL 1 DROP EACH EYE (08:59)
[2019-11-03] MEDS: BRIMONIDINE TARTRATE 0.2% OP SOLN 5 ML BTL 1 DROP EACH EYE (08:59)
--- NOTE | 2019-11-03 10:20 | PCNWS ---
Weekly nutritional screen. Patient is tolerating current diet with adequate intake. No weight loss reported. No nutritional needs at this time.
--- NOTE | 2019-11-03 10:53 | PCPTNOTE ---
Patient refused treatment this session due to anticipated discharge.
--- NOTE | 2019-11-03 11:45 | WPDINFPN2 ---
Progress Note: A&P Assessment and Plan (1) UTI (urinary tract infection): Qualifiers: Hematuria presence: without hematuria Urinary tract infection type: site unspecified Qualified Code(s): N39.0 - Urinary tract infection, site not specified Code(s): N39.0 - Urinary tract infection, site not specified Status: Acute Assessment and Plan: 1. UTI with bacteremia, CNSS not saprophyticus. Clinically resolved. No prosthetic devices. 2. RA 3. Immunosuppressed, mtx on hold REC vanc #7 / 7 days, stop, no oral therapy needed, ok discharge, hold Mtx for another 4 weeks if possible. Subjective Date/time seen: 11/03/19 11:45 Interval history: sleepy but arousable, no new complaints Exam Narrative: Exam Narrative: afebrile Const: General: no acute distress Resp: Effort & Inspection: normal respiratory effort Auscultation: clear to auscultation bilaterally GI: GI Palp: Yes Soft to palpation and No Tenderness to palpation present (GI) Objective Data Vital Signs Vital Signs: Vital Signs - 24 hr 11/02/19 12:00 11/02/19 14:00 11/02/19 16:00 Temperature 36.6 C Pulse Rate 79 72 80 Respiratory Rate 20 Blood Pressure 137/84 Pulse Oximetry 100 11/02/19 18:00 11/02/19 20:00 11/02/19 21:28 Temperature 37.1 C Pulse Rate 93 103 H 88 Respiratory Rate 20 Blood Pressure 174/89 H Pulse Oximetry 96 11/02/19 21:46 11/03/19 00:00 11/03/19 01:59 Temperature 37.3 C 37.1 C Pulse Rate 91 93 67 Respiratory Rate 20 18 Blood Pressure 178/95 H 171/95 H Pulse Oximetry 97 94 11/03/19 04:00 11/03/19 06:00 11/03/19 08:00 Temperature 36.8 C Pulse Rate 81 80 94 Respiratory Rate 18 Blood Pressure 146/74 H Pulse Oximetry 94 11/03/19 08:58 11/03/19 10:00 Temperature 36.9 C Pulse Rate 80 87 Respiratory Rate 16 Blood Pressure 141/90 H Pulse Oximetry 97 Intake/Output Intake/Output: Intake & Output 10/31/19 11/01/19 11/02/19 11/03/19 23:59 23:59 23:59 23:59 Intake Total 2150 2100 8931 1390 Output Total 2250 400 1300 1200 Balance -100 1700 7631 190 Meds/Results Medications: Active Medications Generic Name Dose Route Start Last Admin Trade Name Freq PRN Reason Stop Dose Admin Acetaminophen 650 mg 10/26/19 19:14 11/03/19 01:43 Tylenol Tablet PO 650 mg Q6H PRN Administration Mild Pain (1-3) or Fever Aspirin 81 mg 10/27/19 09:00 11/03/19 08:58 Aspirin Ec PO 81 mg DAILY MART Administration Brimonidine Tartrate 1 drop 10/26/19 21:00 11/03/19 08:59 Alphagan 0.2% Op Soln EACH EYE 1 drop Q12HR MART Administration Diclofenac Sodium 0 applic 10/26/19 21:00 11/03/19 08:59 Voltaren 1% Gel TOPICAL 11/25/19 21:01 1 applic QID MART Administration Enoxaparin Sodium 110 mg 10/26/19 20:00 11/03/19 08:58 Lovenox SUB-Q 110 mg Q12HR MART Administration Folic Acid 1 mg 10/27/19 09:00 11/03/19 08:58 Folic Acid PO 1 mg DAILY MART Administration Latanoprost 1 drop 10/26/19 21:00 11/02/19 21:23 Xalatan EACH EYE 1 drop HS MART Administration Levalbuterol HCl 2 puff 10/26/19 17:36 Xopenex Hfa INHALATION Q6HRT PRN Shortness Of Breath Metoprolol Tartrate 25 mg 10/26/19 19:15 11/03/19 08:58 Lopressor PO 25 mg Q12HR MART Administration Oxybutynin Chloride 10 mg 10/27/19 09:00 11/03/19 08:57 Ditropan Xl PO 10 mg DAILY MART Administration Timolol Maleate 1 drop 10/26/19 21:00 11/03/19 08:59 Timoptic 0.5% Ophth Soln EACH EYE 1 drop Q12HR MART Administration Radiology Results: ITS Impressions Head CT 10/26/19 10:12 IMPRESSION: Cerebral atherosclerosis and chronic small vessel ischemic changes of the cerebral white matter No acute intracranial finding or significant change since 04/06/2019 Renal Ultrasound 10/27/19 10:31 IMPRESSION: Sonographically unremarkable kidneys. Brain MRI 10/27/19 17:52 IMPRESSION: 1. No acute in
--- NOTE | 2019-11-03 16:38 | PM.DS ---
DS: Diagnosis Admitting Diagnosis Admitting Diagnosis: Sepsis, unspecified organism Discharge Diagnosis (1) UTI (urinary tract infection): Qualifiers: Hematuria presence: without hematuria Urinary tract infection type: site unspecified Qualified Code(s): N39.0 - Urinary tract infection, site not specified Code(s): N39.0 - Urinary tract infection, site not specified Status: Acute Assessment and Plan: Date of Service 11/03/19 Mr. Zaman is a 73yo M with history of rheumatoid arthritis and hypertension who presented to the ED for evaluation of altered mental status. He was found to have a urinary tract infection with bacteremia. His acute metabolic encephalopathy resolved not long after antibiotics were initiated. Infectious disease was consulted and he completed 7 days of IV vancomycin per ID recommendations. On arrival when patient was encephalopathic, there was concern for respiratory illness. He tested negative for COVID-19. Once he was back at his cognitive baseline, he had no respiratory symptoms. He was found to be in atrial fibrillation on arrival which resolved quickly, likely secondary to above. He was started on oral metoprolol and remained in normal sinus rhythm through the rest of his admission. He was anticoagulated here with therapeutic doses of Lovenox. Cardiology not formally consulted, but recommended short term anticoagulation x 1 month and 30-day Holter monitor could be considered as an outpatient. Patient was discharged with Eliquis x 30 days. ID recommended holding patient's home methotrexate x 4 weeks if possible due to infection. Discussed this with Dr Walters's adult parole officer per patient's request, as he was already beginning to experience some RA pain in the lower extremities prior to discharge. Dr. Walters's office called him in hydroxychloroquine to help while MTX remained on hold. He was instructed to follow up with rheumatology as scheduled, or sooner if needed. He was feeling well and asymptomatic on day of discharge. He was hemodynamically stable for discharge 11/03/19 with instructions to follow up with PCP. Consultations: -- Infectious disease - Dr Ramos. Urine culture and 2/[address] blood cultures [address]. Dr Ramos consulted - patient completed 7 days of IV vancomycin per ID recommendations. (2) Sepsis: Qualifiers: Sepsis type: sepsis due to unspecified organism Sepsis acute organ dysfunction status: unspecified Qualified Code(s): A41.9 - Sepsis, unspecified organism Code(s): A41.9 - Sepsis, unspecified organism Status: Resolved Assessment and Plan: Evident by tachycardia, fever, and leukocytosis on admission. Suspected source is urinary, see above. Afebrile today. COVID-19 testing negative. (3) Atrial fibrillation with rapid ventricular response: Code(s): I48.91 - Unspecified atrial fibrillation Status: Resolved Assessment and Plan: Resolved. In normal sinus rhythm still today. May have been related to above. He denies previous history of arrhythmias; possible old TIA years ago but MRI brain this admission shows no old CVAs. He was started on metoprolol tartrate 25mg BID which he is tolerating well. Anticoagulation was initiated with BID Lovenox. Plan for short term anticoagulation with Eliquis x 1 month per cardiology recommendations. Consider longer Holter monitor as an outpatient. No further A fib events on tele. Echocardiogram shows grade I diastolic dysfunction, EF 55-60% with mild pulmonary hypertension. (4) Metabolic encephalopathy: Code(s): G93.41 - Metabolic encephalopathy Status: Resolved Assessment and Plan: Resolved. Suspect secondary to infection and acute renal failure. Patient back at baseline. MRI brain shows no acute intracranial abno
== END 2019-11-03 13:30 | disposition home or self-care (01) | DRG 871 ==
LOC: ANHED 11:57 → ANHIMU 12:46 → ANH3MEDSUR 10-27 01:21
PROVIDERS: Family Medicine; Internal Medicine Infectious Disease; Physician Assistant; Admitting Provider Internal Medicine; Emergency Provider Emergency Medicine; PCP Family Medicine; Visit Provider Hospitalist
DX: A41.1 Sepsis due to other specified staphylococcus (principal); G93.41 Metabolic encephalopathy; N17.9 Acute kidney failure, unspecified; N39.0 Urinary tract infection, site not specified; R65.20 Severe sepsis without septic shock; M06.9 Rheumatoid arthritis, unspecified; Z20.828 Contact with and (suspected) exposure to other viral communicable diseases; I10 Essential (primary) hypertension; R73.03 Prediabetes; Z86.73 Personal history of transient ischemic attack (TIA), and cerebral infarction without residual deficits; I48.91 Unspecified atrial fibrillation; H40.9 Unspecified glaucoma; E29.1 Testicular hypofunction; M19.90 Unspecified osteoarthritis, unspecified site; E55.9 Vitamin D deficiency, unspecified; N32.81 Overactive bladder; Z98.42 Cataract extraction status, left eye; Z87.891 Personal history of nicotine dependence
CPT/HCPCS: 36415; 51701; 70450; 70551; 71045; 76775; 80048; 80053; 80202; 81001; 82607; 82728; 82746; 83036; 83605; 83615; 83735; 83880; 84100; 84443; 84484; 85025; 85027; 85380; 85610; 85730; 86140; 87040; 87077; 87086; 87088; 87186; 87635; 87804; 93005; 93306; 93880; 96361; 96365; 96375; 97110; 97116; 97161; 97165; 99285; A9270; J0131; J0696; J1650; J1956; J3370; J3475; J7030; J7120; U0002

== ENCOUNTER 2019-11-10 13:41 | Outpatient (CLI) | payer MEDICARE, SELFPAY ==
[2019-11-10 14:19] LABS: Blood Urea Nitrogen 26 mg/dL (9-20); Calcium 9.5 mg/dL (8.4-10.2); Carbon Dioxide 30 mmol/L (22-30); Chloride 99 mmol/L (98-107); Estimated Glomerular Filt Rate 59; Glucose 107 mg/dL (75-110); Potassium 4.5 mmol/L (3.4-5.0); Sodium 136 mmol/L (137-145)
== END 2019-11-10 13:42 | disposition home or self-care (01) ==
PROVIDERS: PCP Family Medicine; Visit Provider Physician Assistant
DX: E87.6 Hypokalemia (principal)
CPT/HCPCS: 36415; 80048

== ENCOUNTER 2019-12-17 12:08 | Outpatient (CLI) | payer MEDICARE, SELFPAY ==
[2019-12-17 12:52] LABS: Basophils Absolute Auto 0.1 K/mm3 (0.0-0.1); Basophils Percent Auto 0.9 % (0.2-1.2); Eosinophils Absolute Auto 0.3 K/mm3 (0-0.3); Eosinophils Percent Auto 3.7 % (0-4.4); Hematocrit 43.6 % (42.0-52.0); Hemoglobin 14.6 g/dL (14.0-18.0); Immature Granulocyte Absolute 0.03 K/mm3 (0.00-0.031); Immature Granulocyte Percent A 0.4 % (0-0.5); Lymphocytes Absolute Auto 1.55 K/mm3 (0.9-3.2); Lymphocytes Percent Auto 18.3 % (18.3-44.2); Mean Corpuscular HGB Conc 33.5 g/dl (32-36); Mean Corpuscular Hemoglobin 35.1 pg (26-34); Mean Corpuscular Volume 104.8 fl (80-100); Monocytes Absolute Auto 0.8 K/mm3 (0.1-0.6); Monocytes Percent Auto 9.7 % (2.6-8.5); Neutrophils Absolute Auto 5.7 K/mm3 (1.3-6.7); Platelet Count Result 253 k/mm3 (150-375); Red Blood Count 4.16 M/mm3 (4.6-6.20); Red Cell Distribution Width 12.9 % (11.5-14.5); White Blood Count 8.5 K/mm3 (4.5-10.0)
[2019-12-17 16:40] LABS: Add Urine Microscopic? YES; Appearance Urine Clear (Clear); Bilirubin Urine Negative (Negative); Blood Urine Negative (Negative); Color Urine Yellow (Yellow); Glucose Urine UA Negative (Negative); Ketones Urine Negative (Negative); Leukocyte Esterase Ur 1+ LEU/UL (Negative); Mucus Urine Rare /lpf; Nitrate Urine Negative (Negative); Protein Urine Negative (Negative); RBC Urine 0-2 /hpf (0-2); Specific Grav Ur 1.013 (1.001-1.035); Squamous Epithelial Cell Urine Rare /hpf (Few); Urobilinogen Urine Negative mg/dL (<2.0); WBC Urine 21-30 /hpf
[2019-12-17 16:44] LABS: Alanine Aminotransferase 45 U/L (4-50); Albumin Level 4.8 g/dL (3.5-5.1); Alkaline Phosphatase 63 U/L (38-126); Aspartate Amino Transferase 38 U/L (17-59); Bilirubin,Total 0.5 mg/dL (0.2-1.3); Blood Urea Nitrogen 20 mg/dL (9-20); Calcium 9.9 mg/dL (8.4-10.2); Carbon Dioxide 32 mmol/L (22-30); Chloride 97 mmol/L (98-107); Cholesterol 178 mg/dL (0-200); Estimated Glomerular Filt Rate > 60; Glucose 100 mg/dL (75-110); HDL Direct 45 mg/dL; Potassium 4.1 mmol/L (3.4-5.0); Sodium 137 mmol/L (137-145); Triglycerides 125 mg/dL (<150)
[2019-12-17 16:53] LABS: CRP 1.3 mg/dL (<1.0)
[2019-12-17 16:55] LABS: LDL Cholesterol Direct 115 mg/dL
[2019-12-17 17:13] LABS: Prostate Specific Antigen 5.5 ng/mL (< OR = 4.0)
== END 2019-12-17 12:09 | disposition home or self-care (01) ==
PROVIDERS: PCP Family Medicine; Visit Provider Internal Medicine
DX: M05.79 Rheumatoid arthritis with rheumatoid factor of multiple sites without organ or systems involvement (principal); M06.9 Rheumatoid arthritis, unspecified; M15.9 Polyosteoarthritis, unspecified; Z79.899 Other long term (current) drug therapy; I10 Essential (primary) hypertension; Z13.220 Encounter for screening for lipoid disorders; Z68.35 Body mass index [BMI] 35.0-35.9, adult; I48.91 Unspecified atrial fibrillation; Z12.5 Encounter for screening for malignant neoplasm of prostate
CPT/HCPCS: 36415; 80053; 80061; 81001; 84153; 84443; 85025; 86140; 87077; 87086; 87088; 87186; G0103

== ENCOUNTER 2020-01-28 14:11 | Outpatient (CLI) | payer MEDICARE, SELFPAY ==
[2020-01-31 19:13] LABS: PSA, Free 1.31 ng/mL; PSA, Total 5.8 ng/mL (<=4.0); Percent Free Prostate Spec Ag 23 % (>25)
== END 2020-01-28 14:12 | disposition home or self-care (01) ==
LOC: ANHLAB 14:13
PROVIDERS: PCP Family Medicine; Visit Provider Internal Medicine Hematology & Oncology
DX: R97.20 Elevated prostate specific antigen [PSA] (principal)
CPT/HCPCS: 36415; 84153; 84154

== ENCOUNTER 2020-02-25 14:32 | Outpatient (CLI) | payer MEDICARE, SELFPAY ==
[2020-02-25 15:44] LABS: Add Urine Microscopic? YES; Appearance Urine Clear (Clear); Bacteria Urine Trace /hpf; Bilirubin Urine Negative (Negative); Blood Urine Negative (Negative); Color Urine Yellow (Yellow); Glucose Urine UA Negative (Negative); Ketones Urine Negative (Negative); Leukocyte Esterase Ur 2+ LEU/UL (Negative); Mucus Urine Rare /lpf; Nitrate Urine Negative (Negative); Protein Urine Negative (Negative); Specific Grav Ur 1.012 (1.001-1.035); Squamous Epithelial Cell Urine Rare /hpf (Few); Urobilinogen Urine Negative mg/dL (<2.0); WBC Urine 51-75 /hpf
[2020-02-25 16:01] LABS: CRP 2.4 mg/dL (<1.0); Uric Acid 9.2 mg/dL (3.5-8.5)
[2020-02-25 16:09] LABS: Erythrocyte Sedimentation Rate 20 mm/hr (0-20)
== END 2020-02-25 14:33 | disposition home or self-care (01) ==
PROVIDERS: PCP Family Medicine; Visit Provider Internal Medicine
DX: M05.79 Rheumatoid arthritis with rheumatoid factor of multiple sites without organ or systems involvement (principal); M19.90 Unspecified osteoarthritis, unspecified site; Z79.899 Other long term (current) drug therapy
CPT/HCPCS: 36415; 81001; 84550; 85652; 86140; 87077; 87086; 87088; 87186

== ENCOUNTER 2020-07-02 02:53 | Emergency (ER) | payer MEDICARE, SELFPAY ==
--- NOTE | ~2020-07-02 | XR_ITS ---
EXAMINATION: XR chest 1V portable DATE: 07/02/2020 03:26 INDICATION: Weakness TECHNIQUE: frontal view of the chest was obtained. COMPARISON: Chest radiograph dated 11/07/2019 FINDINGS: No significant change in thin linear discoid atelectasis/scarring at the bilateral lower lung zones. No other airspace opacities, pulmonary edema, pleural effusion or pneumothorax. The cardiomediastinal silhouette is within normal limits for AP technique. Tortuous thoracic aorta. IMPRESSION: 1. Unchanged mild bibasilar atelectasis/scarring. Reviewed, dictated and finalized at location A. [employer] PROGRAMS MANAGER
[2020-07-02 02:54] VITALS: BP 137/77; PULSE 94; RESP 18; TEMP 37; O2SAT 98
--- NOTE | 2020-07-02 03:01 | ED.WEAKNESS ---
HPI - Weakness General Chief complaint: Urogenital-Male Stated complaint: fever, weakness Time Seen by Provider: 07/02/20 03:00 History of Present Illness HPI Narrative: 74 yo male presents brought in by EMS from home for weakness. He reports that when he got up from bed this evening he fell to the ground and was not able to get back up. He denies any injury. He di not hit his head. He says that the last time he felt this way he had a UTi. Endorses frequent urination and possibly incomplete emptying. No dysuria, hematuria. EMS did report a mild temperature elevation. Related Data Home Medications Medication Instructions Recorded Confirmed aspirin 81 mg tablet,delayed 81 mg PO DAILY 07/08/19 03/02/20 release brimonidine 0.2 %-timolol 0.5 % 1 drop EACH EYE Q12H 07/08/19 03/02/20 eye drops travoprost 0.004 % eye drops 1 drop EACH EYE QPM 07/08/19 03/02/20 Allergies Allergy/AdvReac Type Severity Reaction Status Date / Time No Known Drug Allergies Allergy Mild unknown Verified 06/29/20 14:01 Review of Systems Review of Systems: All systems reviewed & are unremarkable except as noted in HPI and below Constitutional: Constitutional: Denies chills, Denies fever(s) and Reports weakness ENT: Denies sore throat Cardiovascular: Cardiovascular: Denies chest pain Respiratory: Respiratory: Denies cough and Denies dyspnea Gastrointestinal: Gastrointestinal: Denies abdominal pain, Denies constipation, Denies diarrhea, Denies nausea and Denies vomiting Genitourinary: Genitourinary: Denies hematuria, Denies dysuria, Reports urinary frequency and Denies urinary incontinence Musculoskeletal: Musculoskeletal: Denies back pain Neurologic: Denies confusion, Denies dizziness, Denies headache(s) and Reports weakness [facility] Past Medical History Medical History A-fib Khoury palsy 2019. Essential hypertension Glaucoma History of Khoury's palsy History of TIA (transient ischemic attack) Hyperuricemia (~01/2020) Hypogonadism in male Uses testosterone gel. OAB (overactive bladder) Osteoarthritis Overactive bladder Pre-diabetes Hemoglobin A1c was 6.3% in April 2019. Retinal vein occlusion of left eye Rheumatoid arthritis with rheumatoid factor of multiple sites without organ or systems involvement Immunosuppressed, on methotrexate. TIA (transient ischemic attack) 2015. Vitamin D deficiency Surgical History Surgical History History of appendectomy History of left cataract surgery Family History Family History Other Acute myocardial infarction Diabetes mellitus Heart disease Hypertension Social History Social History Social History: The patient lives in [place] with his . They have 3 sons and 1 daughter. His , Vandana, is his emergency contact and he wishes to be a full code. He smoked up to 3 packs of cigarettes per day and quit 1995. No alcohol or drug abuse. Smoking status: Former smoker Gender identity (if verbalized by the patient): Male Spiritual care concerns: Yes (Judaism) Agree to blood products: Yes Exam Const: General: healthy appearing, no acute distress and alert Orientation/consciousness: patient oriented x3 HENMT: Head: normal to inspection Neck: Neck: normal visual inspection and no lymphadenopathy Chest: Chest palpation & inspection: no tenderness Resp: Effort & Inspection: normal respiratory effort Auscultation: clear to auscultation bilaterally, no rales, no rhonchi and no wheezes Cardio: Jugular venous distension: no JVD Rate: regular rate Rhythm: regular rhythm Heart sounds: no murmurs GI: Inspection: non-distended GI Palp: Yes Soft to palpation and No Tenderness to palpation present (GI) Skin: General skin exam: norm
[2020-07-02 03:31] LABS: Basophils Absolute Auto 0.1 K/mm3 (0.0-0.1); Basophils Percent Auto 0.4 % (0.2-1.2); Eosinophils Absolute Auto 0.1 K/mm3 (0-0.3); Eosinophils Percent Auto 0.4 % (0-4.4); Hematocrit 39.6 % (42.0-52.0); Hemoglobin 13.9 g/dL (14.0-18.0); Immature Granulocyte Absolute 0.06 K/mm3 (0.00-0.031); Immature Granulocyte Percent A 0.4 % (0-0.5); Lymphocytes Absolute Auto 0.71 K/mm3 (0.9-3.2); Lymphocytes Percent Auto 5.2 % (18.3-44.2); Mean Corpuscular HGB Conc 35.1 g/dl (32-36); Mean Corpuscular Hemoglobin 35.1 pg (26-34); Mean Platelet Volume 9.5 fl (7.4-10.4); Monocytes Absolute Auto 1.5 K/mm3 (0.1-0.6); Monocytes Percent Auto 10.8 % (2.6-8.5); Neutrophils Absolute Auto 11.2 K/mm3 (1.3-6.7); Neutrophils Percent Auto 82.8 % (45.5-73.1); Platelet Count Result 168 k/mm3 (150-375); Red Blood Count 3.96 M/mm3 (4.6-6.20); Red Cell Distribution Width 12.5 % (11.5-14.5); White Blood Count 13.6 K/mm3 (4.5-10.0)
[2020-07-02 03:41] LABS: Prothrombin Time 14.1 Seconds (11.1-14.7)
[2020-07-02 03:42] LABS: Partial Thromboplastin Time 27.6 SECONDS (22.3-36.8)
[2020-07-02 03:43] LABS: Lactic Acid Reflex 1.5 mmol/L (0.7-2.1)
[2020-07-02 03:45] LABS: Alanine Aminotransferase 37 U/L (4-50); Albumin Level 4.2 g/dL (3.5-5.1); Alkaline Phosphatase 47 U/L (38-126); Anion Gap 10 mmol/L (8-16); Aspartate Amino Transferase 41 U/L (17-59); Blood Urea Nitrogen 23 mg/dL (9-20); CRP 3.7 mg/dL (<1.0); Calcium 9.1 mg/dL (8.4-10.2); Carbon Dioxide 24 mmol/L (22-30); Chloride 104 mmol/L (98-107); Estimated CRCL calculation 57 ml/min; Estimated Glomerular Filt Rate 54; Glucose 146 mg/dL (75-110); Potassium 3.8 mmol/L (3.4-5.0); Sodium 138 mmol/L (137-145)
[2020-07-02] MEDS: SODIUM CHLORIDE 0.9% IV 1,000 ML 999 ML IV CONT (03:58)
[2020-07-02 04:00] VITALS: BP 102/77; PULSE 88; RESP 18; O2SAT 94
[2020-07-02 04:25] LABS: Add Urine Microscopic? YES; Appearance Urine Cloudy (Clear); Bilirubin Urine Negative (Negative); Blood Urine 3+ (Negative); Color Urine Yellow (Yellow); Glucose Urine UA Negative (Negative); Ketones Urine Trace mg/dL (Negative); Leukocyte Esterase Ur 3+ LEU/UL (Negative); Nitrate Urine Positive (Negative); Protein Urine 2+ mg/dL (Negative); RBC Urine >75 /hpf (0-2); Specific Grav Ur 1.018 (1.001-1.035); Squamous Epithelial Cell Urine Rare /hpf (Few); Urobilinogen Urine Negative mg/dL (<2.0); WBC Clumps Urine Present /HPF; WBC Urine >75 /hpf
[2020-07-02 05:00] VITALS: BP 132/75; PULSE 87; RESP 20; O2SAT 97
[2020-07-02 05:57] VITALS: BP 130/75; PULSE 82; RESP 16; TEMP 36.6; O2SAT 98
== END 2020-07-02 05:58 | disposition home or self-care (01) ==
PROVIDERS: Emergency Provider Emergency Medicine; PCP Family Medicine
DX: N30.90 Cystitis, unspecified without hematuria (principal); Z87.891 Personal history of nicotine dependence; I48.91 Unspecified atrial fibrillation; Z86.73 Personal history of transient ischemic attack (TIA), and cerebral infarction without residual deficits; M19.90 Unspecified osteoarthritis, unspecified site; M06.9 Rheumatoid arthritis, unspecified
CPT/HCPCS: 36415; 71045; 80053; 81001; 83605; 85025; 85610; 85730; 86140; 87040; 87077; 87086; 87088; 87186; 96361; 96365; 99284; J0696; J7030

== ENCOUNTER 2020-07-02 10:43 | Inpatient (IN) | payer MEDICARE, SELFPAY ==
[2020-07-02] VITALS (10 sets, daily range): BP systolic 122–147; BP diastolic 67–89; PULSE 72–103; RESP 18–22; TEMP 36.2–38.5; O2SAT 91–94; BMI 37.2
--- NOTE | ~2020-07-02 | CT_ITS ---
EXAMINATION: CT brain wo con DATE: 07/02/2020 11:48 INDICATION: Altered mental status. TECHNIQUE: Computed tomography (CT) of the head was performed without intravenous contrast. The mA wa s adjusted according to patient size. Iterative reconstruction technique was employed. The dose-lengt h product was 605.33 mGy-cm. COMPARISON: Head CT 10/26/19, brain MRI 10/27/2019 FINDINGS: There are scattered areas of low attenuation in the cerebral white matter. There is no intr acranial hemorrhage, acute infarction, or abnormal intracranial mass lesion. The ventricles are austin l in size. There are likely changes of left ocular lens replacement surgery. There is mild mucosal th ickening in the ethmoid sinuses. The mastoid air cells are normal. IMPRESSION: 1. Stable moderate nonspecific cerebral white matter disease, which likely represents chronic small v essel ischemic disease. Reviewed, dictated and finalized at location B. E RN BSN IMPRESSION: 1. Stable moderate nonspecific cerebral white matter disease, which likely repr esents chronic small vessel ischemic disease.
[2020-07-02 11:36] LABS: Basophils Absolute Auto 0.1 K/mm3 (0.0-0.1); Basophils Percent Auto 0.4 % (0.2-1.2); Eosinophils Percent Auto 0.3 % (0-4.4); Hematocrit 39.3 % (42.0-52.0); Hemoglobin 13.9 g/dL (14.0-18.0); Immature Granulocyte Absolute 0.05 K/mm3 (0.00-0.031); Immature Granulocyte Percent A 0.4 % (0-0.5); Lymphocytes Absolute Auto 0.47 K/mm3 (0.9-3.2); Lymphocytes Percent Auto 3.3 % (18.3-44.2); Mean Corpuscular HGB Conc 35.4 g/dl (32-36); Mean Corpuscular Hemoglobin 35.7 pg (26-34); Mean Platelet Volume 9.1 fl (7.4-10.4); Monocytes Absolute Auto 1.4 K/mm3 (0.1-0.6); Monocytes Percent Auto 9.9 % (2.6-8.5); Neutrophils Absolute Auto 12.1 K/mm3 (1.3-6.7); Neutrophils Percent Auto 85.7 % (45.5-73.1); Platelet Count Result 161 k/mm3 (150-375); Red Blood Count 3.89 M/mm3 (4.6-6.20); Red Cell Distribution Width 12.9 % (11.5-14.5); White Blood Count 14.1 K/mm3 (4.5-10.0)
[2020-07-02 11:52] LABS: Alanine Aminotransferase 34 U/L (4-50); Albumin Level 3.9 g/dL (3.5-5.1); Alkaline Phosphatase 49 U/L (38-126); Anion Gap 9 mmol/L (8-16); Aspartate Amino Transferase 34 U/L (17-59); Blood Urea Nitrogen 19 mg/dL (9-20); Calcium 8.7 mg/dL (8.4-10.2); Carbon Dioxide 23 mmol/L (22-30); Chloride 105 mmol/L (98-107); Estimated CRCL calculation 58 ml/min; Estimated Glomerular Filt Rate 54; Glucose 156 mg/dL (75-110); Lactic Acid Reflex 1.5 mmol/L (0.7-2.1); Sodium 137 mmol/L (137-145)
[2020-07-02 11:56] LABS: Potassium 3.6 mmol/L (3.4-5.0)
[2020-07-02] MEDS: SODIUM CHLORIDE 0.9% IV 1,000 ML 999 ML IV CONT (12:18)
--- NOTE | 2020-07-02 12:31 | ED.GENADULT ---
HPI - General Adult General Chief complaint: Urogenital-Male Stated complaint: INCREASED CONFUSION,WEAKNESS Time Seen by Provider: 07/02/20 10:53 Source: RN notes reviewed History of Present Illness HPI narrative: Patient presents emergency department from home via EMS for weakness. Patient was seen in the emergency department earlier this morning and was diagnosed with a urinary tract infection at that time he was given Rocephin and was discharged home. The patient states he got home and. Him and his had an episode of confusion and was having difficulty getting up and out of bed which she normally walks with a walker patient is currently awake alert x3 denies any fevers or chills chest pain shortness of breath or any other symptoms at this time Related Data Home Medications Medication Instructions Recorded Confirmed aspirin 81 mg tablet,delayed 81 mg PO DAILY 07/08/19 03/02/20 release brimonidine 0.2 %-timolol 0.5 % 1 drop EACH EYE Q12H 07/08/19 03/02/20 eye drops travoprost 0.004 % eye drops 1 drop EACH EYE QPM 07/08/19 03/02/20 Allergies Allergy/AdvReac Type Severity Reaction Status Date / Time No Known Drug Allergies Allergy Mild unknown Verified 07/02/20 11:03 Review of Systems Review of Systems: Narrative: Gen.: Denies fevers or chills Eyes: Denies eye pain or visual change ENT: Denies congestion Respiratory: Denies shortness of breath or cough CV: Denies chest pain or palpitations GI: Denies abdominal pain nausea, emesis or diarrhea reports UTI Musculoskeletal: Denies back pain or muscle pain Neuro: D reports weakness Skin: Denies rash Except as documented, all other systems reviewed and negative [facility] Past Medical History Medical History A-fib Khoury palsy 2019. Essential hypertension Glaucoma History of Khoury's palsy History of TIA (transient ischemic attack) Hyperuricemia (~01/2020) Hypogonadism in male Uses testosterone gel. OAB (overactive bladder) Osteoarthritis Overactive bladder Pre-diabetes Hemoglobin A1c was 6.3% in April 2019. Retinal vein occlusion of left eye Rheumatoid arthritis with rheumatoid factor of multiple sites without organ or systems involvement Immunosuppressed, on methotrexate. TIA (transient ischemic attack) 2014. Vitamin D deficiency Surgical History Surgical History History of appendectomy History of left cataract surgery Family History Family History Other Acute myocardial infarction Diabetes mellitus Heart disease Hypertension Social History Social History Social History: The patient lives in [place] with his . They have 3 sons and 1 daughter. His , Vandana, is his emergency contact and he wishes to be a full code. He smoked up to 3 packs of cigarettes per day and quit 1995. No alcohol or drug abuse. Smoking status: Former smoker Gender identity (if verbalized by the patient): Male Spiritual care concerns: Yes (Jehovah'[employer] Witness) Agree to blood products: Yes Exam Narrative: Exam Narrative: APPEARANCE: No acute distress, nontoxic, resting in bed EYES: EOMI HEENT: Normocephalic, atraumatic, OMM RESPIRATORY: No respiratory distress Clear to auscultation bilaterally with no rhonchi wheezing or rales. CARDIOVASCULAR: Regular rate and rhythm without murmurs rubs or gallops. ABDOMINAL: Soft, nontender, nondistended, no rebound or guarding MUSCULOSKELETAl: Moves all extremities. No clubbing, cyanosis or edema. NEURO: Awake and alert. Following commands, speech normal, no focal deficits SKIN:: Warm, dry. No rashes lesions or abrasions PSYCHIATRIC: Normal affect/mood, Course Course Emergency Course: Reviewed old records. The patient received Rocephin earlier today he had blood cultures obtained as
--- NOTE | 2020-07-02 14:31 | ADMGEN ---
This patient, hSant Zaman, was admitted to Medical Room 245-. Patient/family oriented to hospital policies and general routines including ID bracelet, bed and alarms, visiting hours, pain management, procedures, bathroom and other care routines, personal items, smoking policy, room service/diet, and visiting hours. Information on how to activate the Rapid Response Team has been discussed. Patient/Family are encouraged to report perceived risks to care and to ask questions if they do not understand what they are told or what they should do.
[2020-07-02] MEDS: SODIUM CHLORIDE 0.9% IV 1,000 ML 125 ML IV CONT ×2 (14:50→21:40)
[2020-07-02] MEDS: ALBUTEROL SULFATE (*SP) INHALER 2 PUFF INHALATION (16:33)
--- NOTE | 2020-07-02 17:00 | PM.IMHP ---
H&P: HPI History of Present Illness Date/Time: 07/02/20 17:00 Chief complaint: Increasing confusion and weakness. Narrative: Shant Zaman is a 74-year-old male with rheumatoid arthritis, hypertension, paroxysmal atrial fibrillation, and pre diabetes who presented to the emergency department earlier this morning via EMS from home with complaints of increasing confusion and weakness. Initially he was seen in the emergency department in the hospital cook hours today with reports of weakness, having fallen from ground level after getting out of bed to go to the bathroom. He was diagnosed with urinary tract infection and was discharged home, as he reported feeling better with IV fluid rehydration. It sounds as though he has not been doing very well at home, with increasing confusion as his temperature has gone up and weakness to the point he could not get himself out of bed. At the time my evaluation he is alert and oriented to place and self but is confused regarding situation. He endorses urinary hesitancy, frequency, and dysuria. To his knowledge he has not had a fever (temperature was just 101? F) but he has had some chills. He also reports body aches and mild nausea. No abdominal or back pain. He denies vomiting and diarrhea. No cold or flu symptoms. He does not believe he hit his head in the fall in the hospital cook hours and there was no mention of loss of consciousness. Review of Systems Review of Systems: Narrative: Twelve systems were reviewed with pertinent positives and negatives as per HPI. I am not entirely certain how accurate of a historian he is at this time given his confusion to situation but he did state no to every other question asked of him, aside what is documented in the HPI. [facility] Past Medical History Medical History (Updated 07/02/20 @ 16:13 by Yohana Roche PA-C) Bacteremia (~10/2019) UTI with bacteremia, CNSS not saprophyticus. Khoury palsy (~2018) Chronic disease anemia Essential hypertension Glaucoma Hypogonadism in male Uses testosterone gel. Osteoarthritis Overactive bladder Paroxysmal atrial fibrillation (~10/2019) Pre-diabetes Hemoglobin A1c was 6.3% in April 2019. Retinal vein occlusion of left eye Rheumatoid arthritis with rheumatoid factor of multiple sites without organ or systems involvement He has been methotrexate since being hospitalized with sepsis secondary to UTI in 10/2019, now on Plaquenil. Transient ischemic attack (~2014) Vitamin D deficiency Surgical History Surgical History History of appendectomy History of left cataract surgery Family History Family History Other Acute myocardial infarction Diabetes mellitus Heart disease Hypertension Social History Social History Social History: The patient lives in [place] with his . They have 3 sons and 1 daughter. His , Vandana, is his emergency contact and he wishes to be a full code. He smoked up to 3 packs of cigarettes per day and quit 1995. No alcohol or drug abuse. Smoking status: Former smoker Alcohol intake: former Substance use: never Gender identity (if verbalized by the patient): Male Spiritual care concerns: Yes (Religious) Agree to blood products: Yes Meds Home Medications and Allergies Home Medications Medication Instructions Recorded Confirmed Type aspirin 81 mg tablet,delayed 81 mg PO DAILY 07/08/19 07/02/20 History release brimonidine 0.2 %-timolol 0.5 % 1 drop EACH EYE Q12H 07/08/19 07/02/20 History eye drops travoprost 0.004 % eye drops 1 drop EACH EYE QPM 07/08/19 07/02/20 History diclofenac sodium 1 % topical gel 2 gm TOPICAL QID #100 gm 03/02/20 07/02/20 Rx hydroxychloroquine 200 mg tablet 400 mg PO DAILY #60 tablet 06/29/20 07/02/20 Rx cefdinir 300 mg PO Q12H 10 Days #2
[2020-07-02] MEDS: ACETAMINOPHEN 325 MG TABLET 650 MG PO (17:31)
[2020-07-02] MEDS: IBUPROFEN 400 MG TABLET PO (19:02)
[2020-07-02] MEDS: LATANOPROST 0.005% OP SOLN 2.5 ML BTL 1 DROP EACH EYE (20:02)
[2020-07-02] MEDS: BRIMONIDINE TARTRATE 0.2% OP SOLN 5 ML BTL 1 DROP EACH EYE (20:02)
[2020-07-02] MEDS: DICLOFENAC SODIUM 1% 100 GM GEL (*BKC) 1 APPLIC TOPICAL (20:02)
[2020-07-02] MEDS: METOPROLOL TARTRATE 50 MG TAB PO (20:06)
[2020-07-02] MEDS: TIMOLOL MALEATE 0.5% OP SOLN 5 ML BOTTLE 1 DROP EACH EYE (20:06)
[2020-07-02] MEDS: TOLNAFTATE 1% POWDER 45 GM BTL 1 APPLIC TOPICAL (20:06)
[2020-07-03] VITALS (7 sets, daily range): BP systolic 129–153; BP diastolic 72–88; PULSE 72–100; RESP 18–20; TEMP 36.9–37.2; O2SAT 93–95
[2020-07-03] MEDS: ACETAMINOPHEN 325 MG TABLET 650 MG PO (02:05)
[2020-07-03] MEDS: ALBUTEROL SULFATE (*SP) INHALER 2 PUFF INHALATION ×2 (02:12→09:41)
[2020-07-03] MEDS: SODIUM CHLORIDE 0.9% IV 1,000 ML 125 ML IV CONT ×2 (04:58→12:46)
[2020-07-03 06:23] LABS: Basophils Absolute Auto 0.1 K/mm3 (0.0-0.1); Basophils Percent Auto 0.5 % (0.2-1.2); Eosinophils Absolute Auto 0.1 K/mm3 (0-0.3); Eosinophils Percent Auto 0.6 % (0-4.4); Hematocrit 37.3 % (42.0-52.0); Hemoglobin 12.8 g/dL (14.0-18.0); Immature Granulocyte Absolute 0.04 K/mm3 (0.00-0.031); Immature Granulocyte Percent A 0.4 % (0-0.5); Lymphocytes Absolute Auto 0.69 K/mm3 (0.9-3.2); Lymphocytes Percent Auto 6.5 % (18.3-44.2); Mean Corpuscular HGB Conc 34.3 g/dl (32-36); Mean Corpuscular Hemoglobin 34.7 pg (26-34); Mean Corpuscular Volume 101.1 fl (80-100); Mean Platelet Volume 9.6 fl (7.4-10.4); Monocytes Percent Auto 9.8 % (2.6-8.5); Neutrophils Absolute Auto 8.7 K/mm3 (1.3-6.7); Neutrophils Percent Auto 82.2 % (45.5-73.1); Platelet Count Result 149 k/mm3 (150-375); Red Blood Count 3.69 M/mm3 (4.6-6.20); Red Cell Distribution Width 12.9 % (11.5-14.5); White Blood Count 10.5 K/mm3 (4.5-10.0)
[2020-07-03 06:39] LABS: Anion Gap 8 mmol/L (8-16); Blood Urea Nitrogen 16 mg/dL (9-20); Calcium 8.1 mg/dL (8.4-10.2); Carbon Dioxide 23 mmol/L (22-30); Chloride 107 mmol/L (98-107); Estimated CRCL calculation 15 ml/min; Estimated Glomerular Filt Rate > 60; Glucose 121 mg/dL (75-110); Potassium 3.5 mmol/L (3.4-5.0); Sodium 138 mmol/L (137-145)
[2020-07-03 07:09] LABS: Hemoglobin A1C 5.6 % (<5.7)
[2020-07-03] MEDS: ASPIRIN 81 MG ENTERIC TABLET PO (09:16)
[2020-07-03] MEDS: BRIMONIDINE TARTRATE 0.2% OP SOLN 5 ML BTL 1 DROP EACH EYE ×2 (09:16→21:12)
[2020-07-03] MEDS: TIMOLOL MALEATE 0.5% OP SOLN 5 ML BOTTLE 1 DROP EACH EYE ×2 (09:17→21:12)
[2020-07-03] MEDS: METOPROLOL TARTRATE 50 MG TAB PO ×2 (09:17→21:34)
[2020-07-03] MEDS: DICLOFENAC SODIUM 1% 100 GM GEL (*BKC) 1 APPLIC TOPICAL ×2 (09:17→21:12)
[2020-07-03] MEDS: lisinopriL 10 MG TABLET PO (09:17)
[2020-07-03] MEDS: TOLNAFTATE 1% POWDER 45 GM BTL 1 APPLIC TOPICAL ×2 (09:17→21:16)
[2020-07-03] MEDS: LATANOPROST 0.005% OP SOLN 2.5 ML BTL 1 DROP EACH EYE (21:13)
[2020-07-04] MEDS: ALBUTEROL SULFATE (*SP) INHALER 2 PUFF INHALATION (02:19)
[2020-07-04] MEDS: ACETAMINOPHEN 325 MG TABLET 650 MG PO (02:20)
[2020-07-04 06:00] VITALS: BP 151/81; PULSE 66; RESP 18; TEMP 36.4; O2SAT 97
[2020-07-04 06:31] LABS: Hematocrit 38.4 % (42.0-52.0); Hemoglobin 13.3 g/dL (14.0-18.0); Mean Corpuscular HGB Conc 34.6 g/dl (32-36); Mean Corpuscular Hemoglobin 34.8 pg (26-34); Mean Corpuscular Volume 100.5 fl (80-100); Mean Platelet Volume 9.4 fl (7.4-10.4); Platelet Count Result 170 k/mm3 (150-375); Red Blood Count 3.82 M/mm3 (4.6-6.20); Red Cell Distribution Width 12.9 % (11.5-14.5)
[2020-07-04 07:00] LABS: Anion Gap 8 mmol/L (8-16); Blood Urea Nitrogen 15 mg/dL (9-20); Calcium 8.5 mg/dL (8.4-10.2); Carbon Dioxide 25 mmol/L (22-30); Chloride 107 mmol/L (98-107); Estimated CRCL calculation 74 ml/min; Estimated Glomerular Filt Rate > 60; Glucose 138 mg/dL (75-110); Potassium 3.3 mmol/L (3.4-5.0); Sodium 140 mmol/L (137-145)
--- NOTE | 2020-07-04 07:12 | PM.IMPN ---
Progress Note: A&P Assessment and Plan (1) Bacteremia: Code(s): R78.81 - Bacteremia Status: Acute Assessment and Plan: One blood culture growing gram positive cocci in clusters -I do not suspect contamination at this point since he has a UTI with coag neg staph -He has a hx of this bacteremia back in february -continue vancomycin (2) Sepsis: Code(s): A41.9 - Sepsis, unspecified organism Status: Acute Assessment and Plan: Due to UTI -he had fever and leukocytosis on admission both of which improved -continue ceftriaxone and vancomycin (3) Metabolic encephalopathy: Code(s): G93.41 - Metabolic encephalopathy Status: Acute Assessment and Plan: Improved with treatment -secondary to UTI (4) Urinary tract infection: Qualifiers: Urinary tract infection type: acute cystitis Code(s): N39.0 - Urinary tract infection, site not specified Status: Inactive Assessment and Plan: Urine culture growing coag-negative staph -continue vancomycin, will stop ceftriaxone (5) Chronic disease anemia: Code(s): D63.8 - Anemia in other chronic diseases classified elsewhere Status: Acute Assessment and Plan: Hemoglobin stable (6) Essential hypertension: Code(s): I10 - Essential (primary) hypertension Status: Chronic Assessment and Plan: Last blood pressure 129/78 -continue lisinopril and metoprolol (7) Paroxysmal atrial fibrillation: Onset Date: ~10/2019 Code(s): I48.0 - Paroxysmal atrial fibrillation Status: Inactive Assessment and Plan: Appear to be in normal sinus rhythm for me -continue metoprolol -it appears that he had AFib during a hospitalization in October but no reports of continuation of this -if he has not had a Holter monitor, this should be done outpatient -if he has not been in AFib since then, he likely will not need anticoagulation -will be sure the patient and family is informed at discharge (8) Rheumatoid arthritis with rheumatoid factor of multiple sites without organ or systems involvement: Code(s): M05.79 - Rheumatoid arthritis with rheumatoid factor of multiple sites without organ or systems involvement Status: Chronic Assessment and Plan: Hold Plaquenil (9) Pre-diabetes: Code(s): R73.03 - Prediabetes Status: Acute Assessment and Plan: A1c 5.6 (10) Glaucoma: Code(s): H40.9 - Unspecified glaucoma Status: Acute Assessment and Plan: No acute issues (11) Generalized weakness: Code(s): R53.1 - Weakness Status: Acute Assessment and Plan: Continue PT OT Time Spent With Patient Time with patient: 25 - 35 minutes Subjective Date/time seen: 07/03/20 1300 late entry Interval history: Pt is a 74-year-old male here for UTI bacteremia. Patient was seen and has no complaints other than being in the hospital. He no longer has dysuria and is feeling stronger than when he was at home. He had some confusion that he thinks is gradually getting better but he is not baseline. He denies chest pain, shortness of breath, fevers, chills, nausea, vomiting, diarrhea or constipation. Review of Systems Review of Systems: All systems reviewed & are unremarkable except as noted in HPI and below Exam Narrative: Exam Narrative: General: Well developed well nourished patient in NAD HEENT: normocephalic Neck: supple Neuro: Alert and oriented x4 CV:RRR Resp: Mild crackles at the left base, right clear Abd: Soft, non distended. No pain to palpation. Positive bowel sounds Extremities: No swelling, erythema, or pain to palpation. Objective Data Vital Signs Vital Signs: Vital Signs - 24 hr 07/03/20 09:17 07/03/20 09:21 07/03/20 14:00 Temperature 98.9 F 98.5 F Pulse Rate 80 89 Respiratory Rate 20 Blood Pressure 131/72 Pulse Oximetry 95 06/22
--- NOTE | 2020-07-04 07:41 | ECG_ITS ---
Measurements Intervals [place] Rate: 69 P: 37 OK: 204 QRS: 26 QRSD: 157 T: 3 QT: 422 QTc: 452 Interpretive Statements SINUS RHYTHM FREQUENT ATRIAL PREMATURE COMPLEXES RIGHT BUNDLE BRANCH BLOCK CONSIDER INFERIOR INFARCT, AGE INDETERMINATE ST-T WAVE ABNORMALITY IN ANTERIOR LEADS- CONSIDER ISCHEMIA BASELINE ARTIFACT- I, II, III, AVL, AVR, AVL, AVF, V5-V6 ABNORMAL ECG Electronically Signed On 07-04-2020 9:29:33 POLICE JUDGE by Francisco Pérez D.O.
[2020-07-04 08:05] LABS: Folic Acid 18.8 ng/mL (2.76->20)
[2020-07-04] MEDS: ASPIRIN 81 MG ENTERIC TABLET PO (08:06)
[2020-07-04] MEDS: lisinopriL 10 MG TABLET PO (08:06)
[2020-07-04] MEDS: POTASSIUM CHLORIDE 20 MEQ TABLET 40 MEQ PO (08:06)
[2020-07-04 08:07] VITALS: PULSE 72
[2020-07-04] MEDS: METOPROLOL TARTRATE 50 MG TAB PO ×2 (08:07→20:31)
[2020-07-04] MEDS: TIMOLOL MALEATE 0.5% OP SOLN 5 ML BOTTLE 1 DROP EACH EYE ×2 (08:15→20:37)
[2020-07-04] MEDS: BRIMONIDINE TARTRATE 0.2% OP SOLN 5 ML BTL 1 DROP EACH EYE ×2 (08:15→20:37)
--- NOTE | 2020-07-04 13:12 | PM.IMPN ---
Progress Note: A&P Assessment and Plan (1) Bacteremia: Code(s): R78.81 - Bacteremia Status: Acute Assessment and Plan: One blood culture growing gram positive cocci in clusters -I do not suspect contamination at this point since he has a UTI with coag neg staph -He has a hx of this bacteremia back in february -continue vancomycin -consult infectious disease since he has had this prior infection and is immunocompromised with Plaquenil (2) Sepsis: Code(s): A41.9 - Sepsis, unspecified organism Status: Acute Assessment and Plan: Due to UTI -he had fever and leukocytosis on admission both of which resolved -continue ceftriaxone and vancomycin (3) Metabolic encephalopathy: Code(s): G93.41 - Metabolic encephalopathy Status: Acute Assessment and Plan: Improved with treatment -secondary to UTI (4) Urinary tract infection: Qualifiers: Urinary tract infection type: acute cystitis Code(s): N39.0 - Urinary tract infection, site not specified Status: Inactive Assessment and Plan: Urine culture growing coag-negative staph -continue vancomycin, ceftriaxone has been stopped -he had a prolonged QT on a prior admission. Repeat EKG shows improvement in this time worried about starting fluoroquinolones. Will await Dr. mclaughlin is recommendations and if we continue with a fluoroquinolones will have to watch his EKG/QTC. EKG also shows chronic changes, nothing acute (5) Chronic disease anemia: Code(s): D63.8 - Anemia in other chronic diseases classified elsewhere Status: Acute Assessment and Plan: Hemoglobin stable (6) Essential hypertension: Code(s): I10 - Essential (primary) hypertension Status: Chronic Assessment and Plan: Last blood pressure 151/81 -continue lisinopril and metoprolol (7) Paroxysmal atrial fibrillation: Onset Date: ~10/2019 Code(s): I48.0 - Paroxysmal atrial fibrillation Status: Inactive Assessment and Plan: Appear to be in normal sinus rhythm for me -continue metoprolol -it appears that he had AFib during a hospitalization in October but no reports of continuation of this -if he has not had a Holter monitor, this should be done outpatient -if he has not been in AFib since then, he likely will not need anticoagulation -will be sure the patient and family is informed at discharge (8) Rheumatoid arthritis with rheumatoid factor of multiple sites without organ or systems involvement: Code(s): M05.79 - Rheumatoid arthritis with rheumatoid factor of multiple sites without organ or systems involvement Status: Chronic Assessment and Plan: Hold Plaquenil (9) Pre-diabetes: Code(s): R73.03 - Prediabetes Status: Acute Assessment and Plan: A1c 5.6 (10) Glaucoma: Code(s): H40.9 - Unspecified glaucoma Status: Acute Assessment and Plan: No acute issues (11) Generalized weakness: Code(s): R53.1 - Weakness Status: Acute Assessment and Plan: Continue PT OT Subjective Date/time seen: 07/04/20 13:12 Interval history: Pt is a 74-year-old male here for UTI bacteremia. Patient was seen and has no complaints today. He no longer has dysuria and is feeling stronger than when he was at home. He thinks his confusion has resolved. He denies chest pain, shortness of breath, fevers, chills, nausea, vomiting, diarrhea or constipation. Exam Narrative: Exam Narrative: General: Well developed well nourished patient in NAD HEENT: normocephalic Neck: supple Neuro: Alert and oriented x4 CV:RRR Resp: Mild crackles at the left base, right clear Abd: Soft, non distended. No pain to palpation. Positive bowel sounds Extremities: No swelling, erythema, or pain to palpation. Objective Data Vital Signs Vital Signs: Vital Signs - 24 hr 07/03/20 14:00
[2020-07-04 14:00] VITALS: BP 142/84; PULSE 68; RESP 16; TEMP 36.3; O2SAT 97
[2020-07-04] MEDS: CYANOCOBALAMIN 1,000 MCG TABLET 1000 MCG PO (14:51)
[2020-07-04 20:31] VITALS: PULSE 72
[2020-07-04] MEDS: LATANOPROST 0.005% OP SOLN 2.5 ML BTL 1 DROP EACH EYE (20:37)
[2020-07-04 21:56] VITALS: BP 151/81; PULSE 75; RESP 18; TEMP 36.9; O2SAT 96
[2020-07-05] MEDS: ALBUTEROL SULFATE (*SP) INHALER 2 PUFF INHALATION (00:25)
[2020-07-05] MEDS: DICLOFENAC SODIUM 1% 100 GM GEL (*BKC) 1 APPLIC TOPICAL ×4 (00:30→20:31)
[2020-07-05] MEDS: ACETAMINOPHEN 325 MG TABLET 650 MG PO ×3 (00:50→16:51)
[2020-07-05 05:28] LABS: Hematocrit 39.5 % (42.0-52.0); Hemoglobin 13.5 g/dL (14.0-18.0); Mean Corpuscular HGB Conc 34.2 g/dl (32-36); Mean Corpuscular Hemoglobin 35.2 pg (26-34); Mean Corpuscular Volume 103.1 fl (80-100); Mean Platelet Volume 9.2 fl (7.4-10.4); Platelet Count Result 180 k/mm3 (150-375); Red Blood Count 3.83 M/mm3 (4.6-6.20); Red Cell Distribution Width 12.9 % (11.5-14.5); White Blood Count 7.8 K/mm3 (4.5-10.0)
[2020-07-05 05:39] LABS: Anion Gap 7 mmol/L (8-16); Blood Urea Nitrogen 18 mg/dL (9-20); Calcium 8.9 mg/dL (8.4-10.2); Carbon Dioxide 28 mmol/L (22-30); Chloride 104 mmol/L (98-107); Estimated CRCL calculation 74 ml/min; Estimated Glomerular Filt Rate > 60; Glucose 126 mg/dL (75-110); Potassium 3.5 mmol/L (3.4-5.0); Sodium 139 mmol/L (137-145)
[2020-07-05 06:00] VITALS: BP 157/64; PULSE 97; RESP 18; TEMP 36.2; O2SAT 97
[2020-07-05 06:20] LABS: HIV 1/2 Ab P24 Ag Result Negative (Negative)
[2020-07-05] MEDS: TIMOLOL MALEATE 0.5% OP SOLN 5 ML BOTTLE 1 DROP EACH EYE ×2 (09:00→20:34)
[2020-07-05] MEDS: TOLNAFTATE 1% POWDER 45 GM BTL 1 APPLIC TOPICAL ×2 (09:00→20:36)
[2020-07-05] MEDS: lisinopriL 10 MG TABLET PO (09:04)
[2020-07-05] MEDS: CYANOCOBALAMIN 1,000 MCG TABLET 1000 MCG PO (09:04)
[2020-07-05] MEDS: ASPIRIN 81 MG ENTERIC TABLET PO (09:04)
[2020-07-05] MEDS: BRIMONIDINE TARTRATE 0.2% OP SOLN 5 ML BTL 1 DROP EACH EYE ×2 (09:04→20:32)
[2020-07-05 09:05] VITALS: PULSE 68
[2020-07-05] MEDS: METOPROLOL TARTRATE 50 MG TAB PO ×2 (09:05→20:31)
[2020-07-05 14:05] VITALS: BP 140/83; PULSE 77; RESP 18; TEMP 36.5; O2SAT 97
--- NOTE | 2020-07-05 14:58 | WPDINFPN2 ---
Progress Note: A&P Assessment and Plan (1) Bacteremia: Code(s): R78.81 - Bacteremia Status: Acute Assessment and Plan: CNSS complicated UTI, recurrent REC Vanc 3-4 days more, then probably oral suppression Subjective Date/time seen: 07/05/20 14:59 Objective Data Vital Signs Vital Signs: Vital Signs - 24 hr 07/04/20 20:31 07/04/20 21:56 07/05/20 06:00 Temperature 36.9 C 36.2 C L Pulse Rate 72 75 97 Respiratory Rate 18 18 Blood Pressure 151/81 H 157/64 H Pulse Oximetry 96 97 07/05/20 09:05 Temperature Pulse Rate 68 Respiratory Rate Blood Pressure Pulse Oximetry Intake/Output Intake/Output: Intake & Output 07/02/20 07/03/20 07/04/20 07/05/20 23:59 23:59 23:59 23:59 Intake Total 2750 4120 1760 1360 Output Total 317 193 5759 1200 Balance 2450 3270 -465 160 Meds/Results Medications: Active Medications Generic Name Dose Route Start Last Admin Trade Name Freq PRN Reason Stop Dose Admin Acetaminophen 650 mg 07/02/20 16:03 07/05/20 09:22 Acetaminophen 325 Mg Tablet PO 650 mg Q6H PRN Administration Mild Pain (1-3) or Fever Albuterol 2 puff 07/02/20 15:56 07/05/20 00:25 Albuterol Sulfate (*Sp) Inhaler INHALATION 2 puff QIDRT PRN Administration Shortness of breath / wheezing Artificial Tears 1 drop 07/02/20 18:28 Artificial Tears Op Soln 15 Ml Bottle EACH EYE QID PRN dry eye Aspirin 81 mg 07/03/20 09:00 07/05/20 09:04 Aspirin 81 Mg Enteric Tablet PO 81 mg DAILY MART Administration Brimonidine Tartrate 1 drop 07/02/20 21:00 07/05/20 09:04 Brimonidine Tartrate 0.2% Op Soln 5 Ml Btl EACH EYE 1 drop Q12HR MART Administration Cyanocobalamin 1,000 mcg 07/04/20 09:00 07/05/20 09:04 Cyanocobalamin 1,000 Mcg Tablet PO 1,000 mcg QAM MART Administration Diclofenac Sodium 1 applic 07/02/20 21:00 07/05/20 12:29 Diclofenac Sodium 1% 100 Gm Gel (*Bkc) TOPICAL 08/01/20 21:01 Not Given QID MART Vancomycin HCl 1,750 mg in 500 mls @ 250 mls/hr 07/04/20 12:00 07/05/20 06:44 Vancomycin 1,750 Mg/D5w 500 Ml IVPB 250 mls/hr Q18H MART Administration Latanoprost 1 drop 07/02/20 21:00 07/04/20 20:37 Latanoprost 0.005% Op Soln 2.5 Ml Btl EACH EYE 1 drop HS MART Administration Lisinopril 10 mg 07/03/20 09:00 07/05/20 09:04 Lisinopril 10 Mg Tablet PO 10 mg DAILY MART Administration Metoprolol Tartrate 50 mg 07/02/20 21:00 07/05/20 09:05 Metoprolol Tartrate 50 Mg Tab PO 50 mg Q12HR MART Administration Oxybutynin Chloride 10 mg 07/03/20 09:00 07/05/20 09:04 Oxybutynin Chloride Xl 5 Mg Tab.Er.24 PO 10 mg DAILY MART Administration Timolol Maleate 1 drop 07/02/20 21:00 07/05/20 09:00 Timolol Maleate 0.5% Op Soln 5 Ml Bottle EACH EYE 1 drop Q12HR MART Administration Tolnaftate 1 applic 07/02/20 21:00 07/05/20 09:00 Tolnaftate 1% Powder 45 Gm Btl TOPICAL 1 applic Q12HR MART Administration Radiology Results: ITS Impressions Head CT 07/02/20 11:51 IMPRESSION: 1. Stable moderate nonspecific cerebral white matter disease, which likely represents chronic small vessel ischemic disease. Labs Labs: Laboratory Results - last 24 hr 07/05/20 07/05/20 07/05/20 05:04 05:04 05:04 WBC 7.8 RBC 3.83 L Hgb 13.5 L Hct 39.5 L MCV 103.1 H MCH 35.2 H MCHC 34.2 RDW 12.9 Plt Count 180 MPV 9.2 Sodium 139 Potassium 3.5 Chloride 104 Carbon Dioxide 28 Anion Gap 7 L BUN 18 Creatinine 1.00 Estim Creat Clear Calc 74 Estimated GFR > 60 Glucose 126 H Calcium 8.9 HIV 1&2 Ab/P24 Ag 4thGn Negative
--- NOTE | 2020-07-05 15:35 | PM.IMPN ---
Progress Note: A&P Assessment and Plan (1) Bacteremia: Code(s): R78.81 - Bacteremia Status: Acute Assessment and Plan: One blood culture growing coag negative staph, the other looks to be a contaminate. -He has a hx of this bacteremia back in february -continue vancomycin, Dr. Ramos consulted and recommends 3-4 more days. -Pt is immunocompromised with Plaquenil (2) Sepsis: Code(s): A41.9 - Sepsis, unspecified organism Status: Acute Assessment and Plan: Due to UTI -he had fever and leukocytosis on admission both of which resolved -continue vancomycin (3) Metabolic encephalopathy: Code(s): G93.41 - Metabolic encephalopathy Status: Acute Assessment and Plan: Improved with treatment -secondary to UTI (4) Urinary tract infection: Qualifiers: Urinary tract infection type: acute cystitis Code(s): N39.0 - Urinary tract infection, site not specified Status: Inactive Assessment and Plan: Urine culture growing coag-negative staph -continue vancomycin, ceftriaxone has been stopped -he had a prolonged QT on a prior admission. Repeat EKG shows improvement in this time worried about starting fluoroquinolones. Will await Dr. ramos is recommendations and if we continue with a fluoroquinolones after vanc will have to watch his EKG/QTC. EKG also shows chronic changes, nothing acute (5) Chronic disease anemia: Code(s): D63.8 - Anemia in other chronic diseases classified elsewhere Status: Acute Assessment and Plan: Hemoglobin stable (6) Essential hypertension: Code(s): I10 - Essential (primary) hypertension Status: Chronic Assessment and Plan: Last blood pressure 140/83 -continue lisinopril and metoprolol (7) Paroxysmal atrial fibrillation: Onset Date: ~10/2019 Code(s): I48.0 - Paroxysmal atrial fibrillation Status: Inactive Assessment and Plan: Appear to be in normal sinus rhythm for me -continue metoprolol -it appears that he had AFib during a hospitalization in October but no reports of continuation of this -he told me today he had a holiter monitor for 1 month which showed no afib. -This was probably just while he was sick and he is low risk for reoccurance. No anticoaglation needed at this time (8) Rheumatoid arthritis with rheumatoid factor of multiple sites without organ or systems involvement: Code(s): M05.79 - Rheumatoid arthritis with rheumatoid factor of multiple sites without organ or systems involvement Status: Chronic Assessment and Plan: Hold Plaquenil (9) Pre-diabetes: Code(s): R73.03 - Prediabetes Status: Acute Assessment and Plan: A1c 5.6 (10) Glaucoma: Code(s): H40.9 - Unspecified glaucoma Status: Acute Assessment and Plan: No acute issues (11) Generalized weakness: Code(s): R53.1 - Weakness Status: Acute Assessment and Plan: Continue PT OT Subjective Date/time seen: 07/05/20 15:35 Interval history: Pt is a 74-year-old male here for UTI bacteremia. Patient was seen and has no complaints today. He no longer has dysuria and is feeling stronger than when he was at home. He denies chest pain, shortness of breath, fevers, chills, nausea, vomiting, diarrhea or constipation. Exam Narrative: Exam Narrative: General: Well developed well nourished patient in NAD HEENT: normocephalic Neck: supple Neuro: Alert and oriented x4 CV:RRR Resp: CTA Abd: Soft, non distended. No pain to palpation. Positive bowel sounds Extremities: No swelling, erythema, or pain to palpation. Objective Data Vital Signs Vital Signs: Vital Signs - 24 hr 07/04/20 20:31 07/04/20 21:56 07/05/20 06:00 Temperature 98.5 F 97.1 F L Pulse Rate 72 75 97 Respiratory Rate 18 18 Blood Pressure 151/81 H 157/64 H Pulse Oximetry 96 97 07/05
--- NOTE | 2020-07-05 19:49 | CONS_ITS ---
DATE OF CONSULTATION: 07/05/2020 REASON FOR CONSULTATION: Bacteremia. HISTORY OF PRESENT ILLNESS: A 74-year-old male whom I saw at the [facility] with coagulase-negative Staph bacteremia and urine infection. He was treated accordingly. He has not been on oral antibiotics recently. He does have autoimmune disease in the form of rheumatoid arthritis, particularly affecting his left shoulder and left knee. He is on hydroxychloroquine at home. No other immunosuppressants. He presented back to the hospital on July 02 with several hours of confusion, generalized weakness, elevated temperature, and blood pressure apparently up to 38.3. He also had chills without rigors, body aches, nausea and worsening joint pain, also unsteadiness on his feet. He was admitted. He is now on vancomycin after culture results have returned. Consultation requested. No other recent antibiotics. No gross hematuria. He has had no hypotension. Not required any surgical intervention. ALLERGIES: NONE KNOWN. HABITS: Ex-smoker. No alcohol. Quit smoking in 1995. PRESENT MEDICATIONS: No other immunosuppressants. PAST MEDICAL HISTORY: In addition to the above, anemia, chronic inflammation, hypertension, glaucoma, hypogonadism on replacement, osteoarthritis, OAB, PAF, retinal vein occlusion, TIA 2015, appendectomy, and cataract surgery. REVIEW OF SYSTEMS: 14-point review otherwise negative. FAMILY HISTORY: [place], diabetes, heart disease, hypertension. SOCIAL HISTORY: He is a retired lives in [place]. No family at the bedside presently. PHYSICAL EXAMINATION: GENERAL: This is an elderly male, who appears his actual age, in no acute distress, afebrile on admission, up to 38.5 later that day and the last 48 hours plus afebrile 97, 18, 157/64, 95% on room air. SKIN: Warm and dry. No rashes. No skin ulcers or breakdown. Nodes, no cervical adenopathy. EENT: The conjunctivae are normal. The oropharynx and oral mucosa are normal. NECK: No masses, thyromegaly, meningismus. LUNGS: Clear to auscultation and percussion. BACK: No CVAT. CARDIAC: Regular rate and rhythm. No murmur, gallop, or rub. No ectopy. ABDOMEN: Nontender, soft. No organomegaly. No masses. EXTREMITIES: No clubbing, cyanosis, edema. LABORATORY DATA: Blood cultures, coagulase-negative Staph species 2/2 sets and urine culture with the same organism. A second blood culture reveals Pseudomonas oryzihabitans. His white count was 10.5, now normal at 7.8, hemoglobin 13.5, platelets are 180. No differential done, earlier showed a minimal left shift. Chemistry panel normal except for glucose of 126. A1c 5.6%. His urinalysis showed multiple abnormalities, which are reviewed. Chest x-ray, bibasilar atelectasis without changes. Echocardiogram earlier showed no infectious process and his renal ultrasound 10/27/19, no abnormalities. ASSESSMENT: 1. Recurrent Staphylococcus aureus UTI with bacteremia, stable. Other causes of fever are unlikely. 2. Immunocompromised with rheumatoid arthritis. 3. No prosthetic devices in place. RECOMMENDATIONS: 1. Continue vancomycin for another 3-4 days, target trough 10 to 15, pharmacist dosing. 2. We will consider oral antibiotic suppression thereafter, such as with a fluoroquinolone. 3. I do not think he is in need of updated renal or bladder imaging. However, urologic evaluation for bladder dysfunction may be appropriate in the future. Thank you very much for asking me see him. AVINASH ROMAN M.D. BLOWER MECHANIC BLOWER MECHANIC D I MT: [facility]
[2020-07-05 20:00] VITALS: O2SAT 97
[2020-07-05 20:31] VITALS: PULSE 74
[2020-07-05] MEDS: LATANOPROST 0.005% OP SOLN 2.5 ML BTL 1 DROP EACH EYE (20:34)
[2020-07-05 22:00] VITALS: BP 157/86; PULSE 66; RESP 20; TEMP 36.4; O2SAT 98
[2020-07-06 05:04] VITALS: BP 151/87; PULSE 62; RESP 20; TEMP 36.1; O2SAT 97
[2020-07-06 05:46] LABS: Basophils Absolute Auto 0.1 K/mm3 (0.0-0.1); Eosinophils Absolute Auto 0.4 K/mm3 (0-0.3); Hematocrit 39.2 % (42.0-52.0); Hemoglobin 13.4 g/dL (14.0-18.0); Immature Granulocyte Absolute 0.02 K/mm3 (0.00-0.031); Immature Granulocyte Percent A 0.3 % (0-0.5); Lymphocytes Absolute Auto 1.34 K/mm3 (0.9-3.2); Lymphocytes Percent Auto 21.3 % (18.3-44.2); Mean Corpuscular HGB Conc 34.2 g/dl (32-36); Mean Corpuscular Hemoglobin 34.4 pg (26-34); Mean Corpuscular Volume 100.8 fl (80-100); Mean Platelet Volume 9.4 fl (7.4-10.4); Monocytes Absolute Auto 0.8 K/mm3 (0.1-0.6); Monocytes Percent Auto 13.1 % (2.6-8.5); Neutrophils Absolute Auto 3.6 K/mm3 (1.3-6.7); Neutrophils Percent Auto 57.3 % (45.5-73.1); Platelet Count Result 182 k/mm3 (150-375); Red Blood Count 3.89 M/mm3 (4.6-6.20); Red Cell Distribution Width 12.7 % (11.5-14.5); White Blood Count 6.3 K/mm3 (4.5-10.0)
[2020-07-06 06:03] LABS: Anion Gap 7 mmol/L (8-16); Blood Urea Nitrogen 15 mg/dL (9-20); CRP 5.9 mg/dL (<1.0); Calcium 9.1 mg/dL (8.4-10.2); Carbon Dioxide 28 mmol/L (22-30); Chloride 105 mmol/L (98-107); Estimated CRCL calculation 81 ml/min; Estimated Glomerular Filt Rate > 60; Glucose 117 mg/dL (75-110); Potassium 3.5 mmol/L (3.4-5.0); Sodium 140 mmol/L (137-145)
[2020-07-06] MEDS: ASPIRIN 81 MG ENTERIC TABLET PO (07:54)
[2020-07-06] MEDS: METOPROLOL TARTRATE 50 MG TAB PO ×2 (07:54→21:07)
[2020-07-06] MEDS: DICLOFENAC SODIUM 1% 100 GM GEL (*BKC) 1 APPLIC TOPICAL ×3 (07:55→21:02)
[2020-07-06] MEDS: lisinopriL 10 MG TABLET PO (07:55)
[2020-07-06] MEDS: CYANOCOBALAMIN 1,000 MCG TABLET 1000 MCG PO (07:55)
[2020-07-06] MEDS: BRIMONIDINE TARTRATE 0.2% OP SOLN 5 ML BTL 1 DROP EACH EYE ×2 (07:58→21:05)
[2020-07-06] MEDS: TIMOLOL MALEATE 0.5% OP SOLN 5 ML BOTTLE 1 DROP EACH EYE ×2 (07:58→21:05)
[2020-07-06] MEDS: TOLNAFTATE 1% POWDER 45 GM BTL 1 APPLIC TOPICAL ×2 (07:59→21:06)
[2020-07-06 08:00] VITALS: BP 150/81; PULSE 71
--- NOTE | 2020-07-06 11:06 | PM.IMPN ---
Progress Note: A&P Assessment and Plan (1) Bacteremia: Code(s): R78.81 - Bacteremia Status: Acute Assessment and Plan: Recurrent UTI with bacteremia. Continue Vancomycin. Appreciate Dr Ramos's recommendations; anticipate 2 to 3 more days IV vancomycin. Patient is immunocompromised due to RA and Plaquenil therapy. (2) Urinary tract infection: Qualifiers: Urinary tract infection type: acute cystitis Hematuria presence: without hematuria Qualified Code(s): N30.00 - Acute cystitis without hematuria Code(s): N39.0 - Urinary tract infection, site not specified Status: Inactive Assessment and Plan: See above. (3) Sepsis: Qualifiers: Sepsis type: sepsis due to unspecified organism Sepsis acute organ dysfunction status: unspecified Qualified Code(s): A41.9 - Sepsis, unspecified organism Code(s): A41.9 - Sepsis, unspecified organism Status: Acute Assessment and Plan: Evident by fever and leukocytosis on arrival, both resolved. Suspected source is above Continue Vancomycin. Monitor urine output and vital signs. (4) Metabolic encephalopathy: Code(s): G93.41 - Metabolic encephalopathy Status: Acute Assessment and Plan: Resolved; suspect was secondary to above. (5) Chronic disease anemia: Code(s): D63.8 - Anemia in other chronic diseases classified elsewhere Status: Acute Assessment and Plan: Hgb low but stable. No evidence of acute bleeding. Monitor CBC. (6) Essential hypertension: Code(s): I10 - Essential (primary) hypertension Status: Chronic Assessment and Plan: BPs reviewed, mildly elevated this afternoon maintained on home lisinopril and metoprolol. (7) Paroxysmal atrial fibrillation: Onset Date: ~10/2019 Code(s): I48.0 - Paroxysmal atrial fibrillation Status: Inactive Assessment and Plan: Rate controlled on home metoprolol. AFib documented during a hospitalization in October, no reports of further incident. Wore one-month Holter monitor November 2019 which showed no AFib. This may have been brief paroxysmal AFib while he was acutely ill, no long-term anticoagulation indicated at present. (8) Rheumatoid arthritis with rheumatoid factor of multiple sites without organ or systems involvement: Code(s): M05.79 - Rheumatoid arthritis with rheumatoid factor of multiple sites without organ or systems involvement Status: Chronic Assessment and Plan: Plaquenil is on hold. (9) Pre-diabetes: Code(s): R73.03 - Prediabetes Status: Acute Assessment and Plan: A1c 5.6.; follow-up with PCP. (10) Glaucoma: Qualifiers: Glaucoma type: unspecified Laterality: unspecified laterality Qualified Code(s): H40.9 - Unspecified glaucoma Code(s): H40.9 - Unspecified glaucoma Status: Acute Assessment and Plan: Continue home eyedrops. No acute issues. (11) Generalized weakness: Code(s): R53.1 - Weakness Status: Acute Assessment and Plan: Continue PT/OT Subjective Date/time seen: 07/06/20 1045 Interval history: Mr. Zaman is a 74yo M admitted for UTI and bacteremia. He is seen this morning and has no complaints today. He denies dysuria. He denies chest pain or shortness of breath. He reports a mild nonproductive cough which is unchanged and he attributes to his sinuses. He tolerated breakfast without nausea or vomiting
--- NOTE | 2020-07-06 11:12 | PHAR ---
Home Systane eye drops seen in pharmacy and returned to [address] [place] [address]
[2020-07-06 14:00] VITALS: BP 171/91; PULSE 70; RESP 18; TEMP 36.4; O2SAT 98
[2020-07-06] MEDS: SALINE 0.65% NAS SOLN 44 ML BTL 1 SPRAY NASAL (16:29)
[2020-07-06 20:00] VITALS: PULSE 76; RESP 20; O2SAT 95
[2020-07-06] MEDS: LATANOPROST 0.005% OP SOLN 2.5 ML BTL 1 DROP EACH EYE (21:05)
[2020-07-06 21:07] VITALS: PULSE 74
[2020-07-06 21:31] VITALS: BP 165/81; PULSE 76; RESP 20; TEMP 36.4; O2SAT 95
[2020-07-06] MEDS: ACETAMINOPHEN 325 MG TABLET 650 MG PO ×2 (22:34)
[2020-07-07 05:45] VITALS: BP 155/83; PULSE 74; RESP 16; TEMP 36; O2SAT 93
[2020-07-07 05:55] LABS: Basophils Absolute Auto 0.1 K/mm3 (0.0-0.1); Basophils Percent Auto 1.2 % (0.2-1.2); Eosinophils Absolute Auto 0.5 K/mm3 (0-0.3); Eosinophils Percent Auto 6.7 % (0-4.4); Hematocrit 38.8 % (42.0-52.0); Hemoglobin 13.4 g/dL (14.0-18.0); Immature Granulocyte Absolute 0.03 K/mm3 (0.00-0.031); Immature Granulocyte Percent A 0.4 % (0-0.5); Lymphocytes Absolute Auto 1.75 K/mm3 (0.9-3.2); Mean Corpuscular HGB Conc 34.5 g/dl (32-36); Mean Corpuscular Hemoglobin 34.8 pg (26-34); Mean Corpuscular Volume 100.8 fl (80-100); Mean Platelet Volume 9.2 fl (7.4-10.4); Monocytes Absolute Auto 0.9 K/mm3 (0.1-0.6); Monocytes Percent Auto 12.6 % (2.6-8.5); Neutrophils Percent Auto 55.1 % (45.5-73.1); Platelet Count Result 201 k/mm3 (150-375); Red Blood Count 3.85 M/mm3 (4.6-6.20); Red Cell Distribution Width 12.4 % (11.5-14.5); White Blood Count 7.3 K/mm3 (4.5-10.0)
[2020-07-07 06:09] LABS: Anion Gap 6 mmol/L (8-16); Blood Urea Nitrogen 19 mg/dL (9-20); Calcium 8.7 mg/dL (8.4-10.2); Carbon Dioxide 30 mmol/L (22-30); Chloride 105 mmol/L (98-107); Estimated CRCL calculation 73 ml/min; Estimated Glomerular Filt Rate > 60; Glucose 103 mg/dL (75-110); Magnesium 1.8 mg/dL (1.6-2.3); Potassium 3.8 mmol/L (3.4-5.0); Sodium 141 mmol/L (137-145)
[2020-07-07 08:45] VITALS: PULSE 78
[2020-07-07] MEDS: ASPIRIN 81 MG ENTERIC TABLET PO (08:45)
[2020-07-07] MEDS: lisinopriL 10 MG TABLET PO (08:45)
[2020-07-07] MEDS: METOPROLOL TARTRATE 50 MG TAB PO ×2 (08:45→21:45)
[2020-07-07] MEDS: DICLOFENAC SODIUM 1% 100 GM GEL (*BKC) 1 APPLIC TOPICAL ×4 (08:46→21:45)
[2020-07-07] MEDS: CYANOCOBALAMIN 1,000 MCG TABLET 1000 MCG PO (08:46)
[2020-07-07 08:47] VITALS: RESP 16; O2SAT 93
[2020-07-07] MEDS: TIMOLOL MALEATE 0.5% OP SOLN 5 ML BOTTLE 1 DROP EACH EYE ×2 (08:47→21:40)
[2020-07-07] MEDS: TOLNAFTATE 1% POWDER 45 GM BTL 1 APPLIC TOPICAL (08:47)
[2020-07-07] MEDS: BRIMONIDINE TARTRATE 0.2% OP SOLN 5 ML BTL 1 DROP EACH EYE ×2 (08:47→21:40)
--- NOTE | 2020-07-07 11:31 | PM.IMPN ---
Progress Note: A&P Assessment and Plan (1) Bacteremia: Code(s): R78.81 - Bacteremia Status: Acute Assessment and Plan: Recurrent UTI with bacteremia. Continue Vancomycin. Appreciate Dr Ramos's recommendations; anticipate 1 to 2 more days IV vancomycin. Patient is immunocompromised due to RA and Plaquenil therapy. (2) Urinary tract infection: Qualifiers: Hematuria presence: without hematuria Urinary tract infection type: acute cystitis Qualified Code(s): N30.00 - Acute cystitis without hematuria Code(s): N39.0 - Urinary tract infection, site not specified Status: Acute Assessment and Plan: See above. (3) Sepsis: Qualifiers: Sepsis acute organ dysfunction status: unspecified Sepsis type: sepsis due to unspecified organism Qualified Code(s): A41.9 - Sepsis, unspecified organism Code(s): A41.9 - Sepsis, unspecified organism Status: Resolved Assessment and Plan: Evident by fever and leukocytosis on arrival, both resolved. Suspected source is above. Continue Vancomycin. Monitor urine output and vital signs. (4) Metabolic encephalopathy: Code(s): G93.41 - Metabolic encephalopathy Status: Resolved Assessment and Plan: Resolved; suspect was secondary to above. (5) Chronic disease anemia: Code(s): D63.8 - Anemia in other chronic diseases classified elsewhere Status: Chronic Assessment and Plan: Hgb low but stable. No evidence of acute bleeding. Monitor CBC. (6) Essential hypertension: Code(s): I10 - Essential (primary) hypertension Status: Chronic Assessment and Plan: BPs reviewed, mildly elevated this morning prior to home meds; maintained on home lisinopril and metoprolol. (7) Paroxysmal atrial fibrillation: Onset Date: ~10/2019 Code(s): I48.0 - Paroxysmal atrial fibrillation Status: Inactive Assessment and Plan: Rate controlled on home metoprolol. AFib documented during a hospitalization in October, no reports of further incident. Wore one-month Holter monitor November 2019 which showed no AFib. This may have been brief paroxysmal AFib while he was acutely ill, no long-term anticoagulation indicated at present. (8) Rheumatoid arthritis with rheumatoid factor of multiple sites without organ or systems involvement: Code(s): M05.79 - Rheumatoid arthritis with rheumatoid factor of multiple sites without organ or systems involvement Status: Chronic Assessment and Plan: Plaquenil is on hold. (9) Pre-diabetes: Code(s): R73.03 - Prediabetes Status: Acute Assessment and Plan: A1c 5.6.; follow-up with PCP. (10) Glaucoma: Qualifiers: Glaucoma type: unspecified Laterality: unspecified laterality Qualified Code(s): H40.9 - Unspecified glaucoma Code(s): H40.9 - Unspecified glaucoma Status: Acute Assessment and Plan: Continue home eyedrops. No acute issues. (11) Generalized weakness: Code(s): R53.1 - Weakness Status: Acute Assessment and Plan: Continue PT/OT. Did well with therapy this morning based on the notes. Subjective Date/time seen: 07/07/20 11:00 Interval history: Mr. Zaman is a 74yo M admitted for UTI and bacteremia. He offers no complaints this morning. Slept well, tolerated breakfast without nausea or vomiting. No chest pain or shortness of breath. Sinus congestion improved with ocean s
[2020-07-07 11:39] LABS: Vancomycin Trough 14.6 ug/mL (10.0-20.0)
--- NOTE | 2020-07-07 13:42 | WPDINFPN2 ---
Progress Note: A&P Assessment and Plan (1) Bacteremia: Code(s): R78.81 - Bacteremia Status: Acute Assessment and Plan: 1. CNSS complicated UTI, recurrent 2. RA with immune suppression 3. Bladder dysfunction REC Vanc until AM 07/08, then ok for discharge on ciprofloxacin 250 mg po daily suppression, 3 months tentatively. Subjective Date/time seen: 07/07/20 13:42 Interval history: fels well, no edema no voiding symptoms Exam Narrative: Exam Narrative: afebrile Const: General: no acute distress Resp: Effort & Inspection: normal respiratory effort Auscultation: clear to auscultation bilaterally Cardio: Rate: regular rate Rhythm: regular rhythm Heart sounds: no gallops and no murmurs GI: Inspection: non-distended GI Palp: Yes Soft to palpation and No Tenderness to palpation present (GI) Objective Data Vital Signs Vital Signs: Vital Signs - 24 hr 07/06/20 14:00 07/06/20 20:00 07/06/20 21:07 Temperature 36.4 C Pulse Rate 70 76 74 Respiratory Rate 18 20 Blood Pressure 171/91 H Pulse Oximetry 98 95 07/06/20 21:31 07/07/20 05:45 07/07/20 08:45 Temperature 36.4 C 36.0 C L Pulse Rate 76 74 78 Respiratory Rate 20 16 Blood Pressure 165/81 H 155/83 H Pulse Oximetry 95 93 07/07/20 08:47 Temperature Pulse Rate Respiratory Rate 16 Blood Pressure Pulse Oximetry 93 Intake/Output Intake/Output: Intake & Output 07/04/20 07/05/20 07/06/20 07/07/20 23:59 23:59 23:59 23:59 Intake Total 1760 2300 2590 1520 Output Total 2225 1800 1650 1400 Balance -465 500 940 120 Meds/Results Medications: Active Medications Generic Name Dose Route Start Last Admin Trade Name Freq PRN Reason Stop Dose Admin Acetaminophen 650 mg 07/02/20 16:03 07/06/20 22:34 Acetaminophen 325 Mg Tablet PO 650 mg Q6H PRN Administration Mild Pain (1-3) or Fever Albuterol 2 puff 07/02/20 15:56 07/05/20 00:25 Albuterol Sulfate (*Sp) Inhaler INHALATION 2 puff QIDRT PRN Administration Shortness of breath / wheezing Artificial Tears 1 drop 07/02/20 18:28 07/07/20 02:08 Artificial Tears Op Soln 15 Ml Bottle EACH EYE 1 drop QID PRN Administration dry eye Aspirin 81 mg 07/03/20 09:00 07/07/20 08:45 Aspirin 81 Mg Enteric Tablet PO 81 mg DAILY MART Administration Brimonidine Tartrate 1 drop 07/02/20 21:00 07/07/20 08:47 Brimonidine Tartrate 0.2% Op Soln 5 Ml Btl EACH EYE 1 drop Q12HR MART Administration Cyanocobalamin 1,000 mcg 07/04/20 09:00 07/07/20 08:46 Cyanocobalamin 1,000 Mcg Tablet PO 1,000 mcg QAM MART Administration Diclofenac Sodium 1 applic 07/02/20 21:00 07/07/20 12:56 Diclofenac Sodium 1% 100 Gm Gel (*Bkc) TOPICAL 08/01/20 21:01 1 applic QID MART Administration Vancomycin HCl 1,750 mg in 500 mls @ 250 mls/hr 07/06/20 12:00 07/07/20 11:45 Vancomycin 1,750 Mg/D5w 500 Ml IVPB 250 mls/hr Q12H MART Administration Latanoprost 1 drop 07/02/20 21:00 07/06/20 21:05 Latanoprost 0.005% Op Soln 2.5 Ml Btl EACH EYE 1 drop HS MART Administration Lisinopril 10 mg 07/03/20 09:00 07/07/20 08:45 Lisinopril 10 Mg Tablet PO 10 mg DAILY MART Administration Metoprolol Tartrate 50 mg 07/02/20 21:00 07/07/20 08:45 Metoprolol Tartrate 50 Mg Tab PO 50 mg Q12HR MART Administration Oxybutynin Chloride 10 mg 07/03/20 09:00 07/07/20 08:46 Oxybutynin Chloride Xl 5 Mg Tab.Er.24 PO 10 mg DAILY MART Administration Sodium Chloride 1 spray 07/06/20 15:15 07/06/20 16:29 Saline 0.65% Joaquin Soln 44 Ml Btl NASAL 1 spray Q6HR PRN Administration Congestion Timolol Maleate 1 drop 07/02/20 21:00 07/07/20 08:47 Timolol Maleate 0.5% Op Soln 5 Ml Bottle EACH EYE 1 drop Q12HR MART Administration Tolnaftate 1 applic 07/02/20 21:00 07/07/20 08:47 Tolnaftate 1% Powder 45 Gm Btl TOPICAL 1 applic Q12HR MART Administration Radiology Results: ITS Impressions Head
[2020-07-07 13:50] VITALS: BP 170/92; PULSE 70; RESP 18; TEMP 36.6; O2SAT 98
[2020-07-07] MEDS: LATANOPROST 0.005% OP SOLN 2.5 ML BTL 1 DROP EACH EYE (21:38)
[2020-07-07 21:45] VITALS: PULSE 74
[2020-07-07 22:57] VITALS: BP 166/97; PULSE 74; RESP 16; TEMP 36.9; O2SAT 96
[2020-07-08 05:10] LABS: Basophils Absolute Auto 0.1 K/mm3 (0.0-0.1); Basophils Percent Auto 1.2 % (0.2-1.2); Eosinophils Absolute Auto 0.5 K/mm3 (0-0.3); Eosinophils Percent Auto 5.6 % (0-4.4); Hematocrit 40.5 % (42.0-52.0); Hemoglobin 13.8 g/dL (14.0-18.0); Immature Granulocyte Absolute 0.04 K/mm3 (0.00-0.031); Immature Granulocyte Percent A 0.5 % (0-0.5); Lymphocytes Absolute Auto 1.68 K/mm3 (0.9-3.2); Lymphocytes Percent Auto 19.7 % (18.3-44.2); Mean Corpuscular HGB Conc 34.1 g/dl (32-36); Mean Corpuscular Hemoglobin 34.3 pg (26-34); Mean Corpuscular Volume 100.7 fl (80-100); Mean Platelet Volume 9.2 fl (7.4-10.4); Monocytes Absolute Auto 0.9 K/mm3 (0.1-0.6); Monocytes Percent Auto 10.1 % (2.6-8.5); Neutrophils Absolute Auto 5.4 K/mm3 (1.3-6.7); Neutrophils Percent Auto 62.9 % (45.5-73.1); Platelet Count Result 226 k/mm3 (150-375); Red Blood Count 4.02 M/mm3 (4.6-6.20); Red Cell Distribution Width 12.3 % (11.5-14.5); White Blood Count 8.5 K/mm3 (4.5-10.0)
[2020-07-08 05:16] LABS: Alanine Aminotransferase 56 U/L (4-50); Alkaline Phosphatase 67 U/L (38-126); Anion Gap 5 mmol/L (8-16); Aspartate Amino Transferase 39 U/L (17-59); Bilirubin,Total 0.5 mg/dL (0.2-1.3); Blood Urea Nitrogen 17 mg/dL (9-20); Calcium 9.3 mg/dL (8.4-10.2); Carbon Dioxide 33 mmol/L (22-30); Chloride 101 mmol/L (98-107); Estimated CRCL calculation 73 ml/min; Estimated Glomerular Filt Rate > 60; Glucose 114 mg/dL (75-110); Magnesium 1.9 mg/dL (1.6-2.3); Potassium 3.6 mmol/L (3.4-5.0); Sodium 139 mmol/L (137-145)
[2020-07-08 06:00] VITALS: BP 152/86; PULSE 74; RESP 16; TEMP 36.3; O2SAT 95
[2020-07-08 07:41] LABS: Atypical Lymphocytes Present; Platelet Estimate Adequate (Adequate)
[2020-07-08] MEDS: CYANOCOBALAMIN 1,000 MCG TABLET 1000 MCG PO (07:59)
[2020-07-08] MEDS: ASPIRIN 81 MG ENTERIC TABLET PO (07:59)
[2020-07-08] MEDS: lisinopriL 10 MG TABLET PO (07:59)
[2020-07-08] MEDS: METOPROLOL TARTRATE 50 MG TAB PO (07:59)
[2020-07-08] MEDS: BRIMONIDINE TARTRATE 0.2% OP SOLN 5 ML BTL 1 DROP EACH EYE (08:00)
[2020-07-08] MEDS: DICLOFENAC SODIUM 1% 100 GM GEL (*BKC) 1 APPLIC TOPICAL ×2 (08:00→11:46)
[2020-07-08] MEDS: TOLNAFTATE 1% POWDER 45 GM BTL 1 APPLIC TOPICAL (08:01)
[2020-07-08] MEDS: TIMOLOL MALEATE 0.5% OP SOLN 5 ML BOTTLE 1 DROP EACH EYE (08:01)
--- NOTE | 2020-07-08 09:30 | PM.DS ---
DS: Admitting Diagnosis Admitting Diagnosis Admitting Diagnosis: UTI DS: Discharge Diagnosis Discharge Diagnosis (1) Bacteremia: Code(s): R78.81 - Bacteremia Status: Acute Assessment and Plan: Date of Admission 07/02/20 Date of Discharge/DOS 07/08/20 Mr. Zaman is a pleasant 74yo M with history of previous UTIs and with bacteremia back in October 2019, chronic anemia, hypertension, paroxysmal a fib, and rheumatoid arthritis who presented to the ED for evaluation of confusion and weakness. He was diagnosed with a UTI and discharged with antibiotics. His brought him back to the ED for evaluation later that day because he was still weak and altered. Urine cultures and blood cultures grew coagulase negative Staph, same organism has been isolated each infection he's had since Jul 2019. He was seen by ID, Dr Ramos, and started on Vancomycin. He received 7 days of IV vancomycin and was discharged with lower dose oral ciprofloxacin for suppressive therapy. He follows with Dr Walker, urology, for recurrent UTIs and he was encouraged to follow up with his office after discharge. His home Plaquenil was held and he was instructed to hold this medication until he spoke with Dr Walters, his patient information coordinator. Overall his mentation quickly returned to baseline after initiation of antibiotics and patient was feeling much stronger. He was hemodynamically stable for discharge on 07/08/20 with instructions to follow up with PCP, urology, and rheumatology. Recurrent UTI with bacteremia; coagulase negative Staph. Treated with 7 days IV vancomycin; discharged with oral cipro for suppressive therapy per Dr Ramos's recommendations. Patient is immunocompromised due to RA and Plaquenil therapy. (2) Urinary tract infection: Qualifiers: Hematuria presence: without hematuria Urinary tract infection type: acute cystitis Qualified Code(s): N30.00 - Acute cystitis without hematuria Code(s): N39.0 - Urinary tract infection, site not specified Status: Acute Assessment and Plan: See above. (3) Sepsis: Qualifiers: Sepsis acute organ dysfunction status: unspecified Sepsis type: sepsis due to unspecified organism Qualified Code(s): A41.9 - Sepsis, unspecified organism Code(s): A41.9 - Sepsis, unspecified organism Status: Resolved Assessment and Plan: Evident by fever and leukocytosis on arrival, both resolved. Suspected source is above. (4) Metabolic encephalopathy: Code(s): G93.41 - Metabolic encephalopathy Status: Resolved Assessment and Plan: Resolved; suspect was secondary to above. (5) Chronic disease anemia: Code(s): D63.8 - Anemia in other chronic diseases classified elsewhere Status: Chronic Assessment and Plan: Hgb low but stable. No evidence of acute bleeding. Monitor CBC. (6) Essential hypertension: Code(s): I10 - Essential (primary) hypertension Status: Chronic Assessment and Plan: BPs mildly elevated maintained on home lisinopril and metoprolol. Follow up with PCP. (7) Paroxysmal atrial fibrillation: Onset Date: ~10/2019 Code(s): I48.0 - Paroxysmal atrial fibrillation Status: Inactive Assessment and Plan: Rate controlled on home metoprolol. AFib documented during a hospitalization in October, no reports of further incident. Wore one-month Holter monitor November 2019 which showed no AFib. This may have been brief paroxysmal AFib while he was acutely ill, no long-term anticoagulation indicated at present. (8) Rheumatoid arthritis with rheumat
== END 2020-07-08 15:06 | disposition home or self-care (01) | DRG 871 ==
LOC: ANHED 12:33 → ANH2MED 13:20
PROVIDERS: Physician Assistant; Admitting Provider Family Medicine; Emergency Provider Emergency Medicine; PCP Family Medicine; Visit Provider Physician Assistant
DX: A41.9 Sepsis, unspecified organism (principal); G93.41 Metabolic encephalopathy; N39.0 Urinary tract infection, site not specified; B95.61 Methicillin susceptible Staphylococcus aureus infection as the cause of diseases classified elsewhere; D63.8 Anemia in other chronic diseases classified elsewhere; I48.0 Paroxysmal atrial fibrillation; M05.79 Rheumatoid arthritis with rheumatoid factor of multiple sites without organ or systems involvement; R73.03 Prediabetes; H40.9 Unspecified glaucoma; M19.90 Unspecified osteoarthritis, unspecified site; N32.81 Overactive bladder; E55.9 Vitamin D deficiency, unspecified; E29.1 Testicular hypofunction; I10 Essential (primary) hypertension; Z86.73 Personal history of transient ischemic attack (TIA), and cerebral infarction without residual deficits; Z87.891 Personal history of nicotine dependence; Z98.42 Cataract extraction status, left eye
CPT/HCPCS: 36415; 70450; 71045; 80048; 80053; 80202; 81001; 82607; 82746; 83036; 83605; 83735; 85025; 85027; 85610; 85730; 86140; 86703; 87040; 87077; 87086; 87088; 87186; 93005; 96361; 96365; 96366; 96367; 97116; 97161; 97165; 97530; 99285; A9270; G0378; G0432; J0131; J0696; J3370; J7030

== ENCOUNTER 2020-07-15 09:43 | Emergency (ER) | payer MEDICARE, SELFPAY ==
--- NOTE | ~2020-07-15 | CT_ITS ---
EXAMINATION: CT brain wo con, CT cervical spine wo con EXAM DATE: 07/15/2020 11:04 INDICATION: Fall, posterior head injury. Initial encounter. Confusion. TECHNIQUE: Spiral CT of the head was performed without contrast. Axial, coronal and sagittal images were reviewed. Spiral CT of the cervical spine was performed without contrast. Axial images were rev iewed. Coronal and sagittal reformatted images were also reviewed. The dose-length product (DLP) fo r this examination was 681.00 (accession [id number]), 570.20 (accession [id number]) mGy-cm. The exposure was tailored according to patient size, and iterative reconstruction (ASIR) was used as additional dose reduction technique. Comparison is made to prior examination from 07/02/2020. FINDINGS: HEAD CT: There is no acute intraparenchymal hemorrhage. No evidence of intraparenchymal brain mass l esion. No evidence of acute infarction. There is moderate periventricular and subcortical hypodensit y, nonspecific but probably related to small vessel ischemic disease. There is mild prominence of t he sulci and ventricles related to cerebral atrophy. There is intracranial carotid arteriosclerosis . There is no mass effect or midline shift. There is no obstructive hydrocephalus suspected. There are no extra-axial collections. There are no acute calvarial fractures. Patient has had left-sided ocular lens surgery. Soft tissue is unremarkable. The visualized sinuses and mastoid air cells ar e well aerated. CERVICAL CT: There is moderate to severe disc disease C4-C7. Moderate to severe left neural foraminal stenosis at these levels and on the right at C5-6. Moderate to severe left facet arthropathy at C7-T 1, otherwise relatively mild cervical facet arthropathy. There is no evidence of acute cervical fract ure. The odontoid process is intact. Pre-dens space is normal. Prevertebral soft tissue is normal. There are no soft tissue abnormalities identified. There is no disc space widening or traumatic ve rtebral body subluxation suspected. A detailed level by level evaluation of spondylosis can be added as addendum if requested. IMPRESSION: No acute intracranial findings or cervical fracture. Reviewed, dictated and finalized at location A. [employer] IMPRESSION: No acute intracranial findings or cervical fracture.
--- NOTE | ~2020-07-15 | XR_ITS ---
EXAMINATION: XR chest 2V EXAM DATE: 07/15/2020 10:12 INDICATION: weakness, syncope, fatigue. TECHNIQUE: Frontal and lateral projections of the chest obtained and reviewed. Comparison is made to prior examination from 07/02/2020. FINDINGS: The lungs are clear. There are no pleural effusions. Cardiac silhouette is prominent but magnified on this AP technique. There is no pneumothorax suspected. The bones and soft tissues are unremarkable. IMPRESSION: No acute cardiopulmonary findings. Reviewed, dictated and finalized at location A. [employer]
[2020-07-15 09:49] VITALS: BP 164/93; PULSE 76; RESP 22; TEMP 36.7; O2SAT 96
--- NOTE | 2020-07-15 09:54 | ECG_ITS ---
Measurements Intervals [place] Rate: 71 P: 14 NV: 193 QRS: -25 QRSD: 173 T: -20 QT: 442 QTc: 481 Interpretive Statements SINUS RHYTHM ATRIAL PREMATURE COMPLEX RIGHT BUNDLE BRANCH BLOCK CONSIDER INFERIOR INFARCT, AGE INDETERMINATE BASELINE ARTIFACT- I, II, AVL, AVF, V5 ABNORMAL ECG Electronically Signed On 07-15-2020 13:23:39 [employer] by Francisco Pérez D.O.
[2020-07-15 10:24] LABS: Basophils Absolute Auto 0.1 K/mm3 (0.0-0.1); Basophils Percent Auto 0.9 % (0.2-1.2); Eosinophils Absolute Auto 0.2 K/mm3 (0-0.3); Eosinophils Percent Auto 2.5 % (0-4.4); Hematocrit 40.6 % (42.0-52.0); Hemoglobin 13.9 g/dL (14.0-18.0); Immature Granulocyte Absolute 0.03 K/mm3 (0.00-0.031); Immature Granulocyte Percent A 0.4 % (0-0.5); Lymphocytes Absolute Auto 1.66 K/mm3 (0.9-3.2); Lymphocytes Percent Auto 20.5 % (18.3-44.2); Mean Corpuscular HGB Conc 34.2 g/dl (32-36); Mean Corpuscular Hemoglobin 34.7 pg (26-34); Mean Corpuscular Volume 101.2 fl (80-100); Mean Platelet Volume 8.9 fl (7.4-10.4); Monocytes Absolute Auto 0.8 K/mm3 (0.1-0.6); Monocytes Percent Auto 9.9 % (2.6-8.5); Neutrophils Absolute Auto 5.3 K/mm3 (1.3-6.7); Neutrophils Percent Auto 65.8 % (45.5-73.1); Platelet Count Result 308 k/mm3 (150-375); Red Blood Count 4.01 M/mm3 (4.6-6.20); Red Cell Distribution Width 11.9 % (11.5-14.5); White Blood Count 8.1 K/mm3 (4.5-10.0)
[2020-07-15 10:40] LABS: Alanine Aminotransferase 44 U/L (4-50); Albumin Level 4.2 g/dL (3.5-5.1); Alkaline Phosphatase 64 U/L (38-126); Anion Gap 7 mmol/L (8-16); Aspartate Amino Transferase 40 U/L (17-59); Bilirubin,Total 0.6 mg/dL (0.2-1.3); Blood Urea Nitrogen 18 mg/dL (9-20); Calcium 9.2 mg/dL (8.4-10.2); Carbon Dioxide 29 mmol/L (22-30); Chloride 100 mmol/L (98-107); Estimated CRCL calculation 71 ml/min; Estimated Glomerular Filt Rate > 60; Glucose 109 mg/dL (75-110); Potassium 3.7 mmol/L (3.4-5.0); Sodium 136 mmol/L (137-145)
[2020-07-15 10:41] LABS: Add Urine Microscopic? YES; Appearance Urine Clear (Clear); Bilirubin Urine Negative (Negative); Blood Urine Negative (Negative); Color Urine Straw (Yellow); Glucose Urine UA Negative (Negative); Ketones Urine Negative (Negative); Leukocyte Esterase Ur Negative LEU/UL (Negative); Mucus Urine Rare /lpf; Nitrate Urine Negative (Negative); Protein Urine 1+ mg/dL (Negative); RBC Urine 0-2 /hpf (0-2); Squamous Epithelial Cell Urine Rare /hpf (Few); Urobilinogen Urine Negative mg/dL (<2.0); WBC Urine 0-3 /hpf
--- NOTE | 2020-07-15 10:41 | ED.WEAKNESS ---
HPI - Weakness General Chief complaint: Weakness <Lisa Lovett PA-C - Last Filed: 07/15/20 13:56> Stated complaint: weakness <Lisa Lovett PA-C - Last Filed: 07/15/20 13:56> Time Seen by Provider: 07/15/20 10:09 <Lisa Lovett PA-C - Last Filed: 07/15/20 13:56> Source: patient and family <EPIFANIO Duran Last Filed: 07/15/20 13:56> Mode of arrival: EMS <EPIFANIO Duran Last Filed: 07/15/20 13:56> Limitations: no limitations <Lisa Lovett PA-C - Last Filed: 07/15/20 13:56> History of Present Illness HPI Narrative: This is a 74 year old male that presents to the ER for generalized weakness which started yesterday. Reports he was trying to get up from the table last night. Reports he lost his balance and fell. Reports hitting his head on a cabinet. Reports he has been having some trouble with balance over the last couple of weeks and is having to use a walker. Also reports fever of 99. Reports urinary frequency. Was recently hospitalized for urosepsis and was concerned that was what was going on again. Denies chest pain, shortness of breath, palpitations, abdominal pain, vomiting, dysuria or hematuria. <Lisa Lovett PA-C - Last Filed: 07/15/20 13:56> Related Data Home medications: Home Medications Medication Instructions Recorded Confirmed aspirin 81 mg tablet,delayed 81 mg PO DAILY 07/08/19 07/14/20 release brimonidine 0.2 %-timolol 0.5 % 1 drop EACH EYE Q12H 07/08/19 07/14/20 eye drops travoprost 0.004 % eye drops 1 drop EACH EYE QPM 07/08/19 07/14/20 Systane Balance 1 drp OPHTHALMIC (EYE) QID PRN 07/02/20 07/14/20 lisinopril 10 mg PO DAILY 07/02/20 07/14/20 metoprolol tartrate 50 mg PO Q12H 07/02/20 07/14/20 oxybutynin chloride 10 mg PO DAILY 07/02/20 07/14/20 testosterone 2 pump TRANSDERMAL DAILY PRN 07/02/20 07/14/20 <Lisa Lovett PA-C - Last Filed: 07/15/20 13:56> Allergies/Adverse reactions: Allergies Allergy/AdvReac Type Severity Reaction Status Date / Time No Known Drug Allergies Allergy Mild unknown Verified 07/15/20 09:54 <Lisa Lovett PA-C - Last Filed: 07/15/20 13:56> Review of Systems Review of Systems: Narrative: CONSTITUTIONAL: Reports fever ENT: Denies rhinorrhea, congestion, sore throat CARDIOVASCULAR: Denies chest pain, palpitations RESPIRATORY: Denies cough or dyspnea. GASTROINTESTINAL: Denies abdominal pain, nausea, vomiting GENITOURINARY: Denies dysuria or hematuria. MUSCULOSKELETAL: Denies back pain, joint pain, or myalgia. NEUROLOGIC: Reports generalized weakness. <EPIFANIO Duran Last Filed: 07/15/20 13:56> All systems reviewed & are unremarkable except as noted in HPI and below <EPIFANIO Duran Last Filed: 07/15/20 13:56> [facility] Past Medical History Medical History: Medical History Bacteremia (~10/2019) UTI with bacteremia, CNSS not saprophyticus. Khoury palsy (~2018) Essential hypertension Glaucoma Hypogonadism in male Uses testosterone gel. Osteoarthritis Overactive bladder Paroxysmal atrial fibrillation (~10/2019) associated with sepsis Pre-diabetes Hemoglobin A1c was 6.3% in April 2019. Retinal vein occlusion of left eye Rheumatoid arthritis with rheumatoid factor of multiple sites without organ or systems involvement He has been methotrexate since being hospitalized with sepsis secondary to UTI in 10/2019, now on Plaquenil. Transient ischemic attack (~2014) Vitamin D deficiency <EPIFANIO Duran Last Filed: 07/15/20 13:56> Surgical History Surgical History: Surgical History History of appendectomy (~1957) History of left cataract surgery (~2009) <Lisa Lovett PA-C - Last Filed: 07/15/20 13:56> Family History Family History: Family History Other Acute myoca
[2020-07-15 11:50] LABS: CRP 1.2 mg/dL (<1.0)
[2020-07-15 12:02] LABS: Lactic Acid Reflex 1.2 mmol/L (0.7-2.1)
[2020-07-15 12:48] VITALS: BP 148/99; PULSE 79; RESP 24; O2SAT 93
[2020-07-15 14:10] VITALS: BP 138/68; PULSE 78; RESP 16; O2SAT 100
== END 2020-07-15 14:10 | disposition home or self-care (01) ==
PROVIDERS: Physician Assistant; Emergency Provider General Practice; PCP Family Medicine
DX: R53.1 Weakness (principal); R26.9 Unspecified abnormalities of gait and mobility; I10 Essential (primary) hypertension; H40.9 Unspecified glaucoma; M19.90 Unspecified osteoarthritis, unspecified site; N32.81 Overactive bladder; I48.0 Paroxysmal atrial fibrillation; Z79.82 Long term (current) use of aspirin; Z86.73 Personal history of transient ischemic attack (TIA), and cerebral infarction without residual deficits; E55.9 Vitamin D deficiency, unspecified; M05.70 Rheumatoid arthritis with rheumatoid factor of unspecified site without organ or systems involvement; R73.03 Prediabetes; Z98.42 Cataract extraction status, left eye; Z87.891 Personal history of nicotine dependence; I49.1 Atrial premature depolarization; I45.10 Unspecified right bundle-branch block; R94.31 Abnormal electrocardiogram [ECG] [EKG]
CPT/HCPCS: 36415; 70450; 71046; 72125; 80053; 81001; 83605; 85025; 86140; 87040; 93005; 99284

== ENCOUNTER 2020-10-19 14:15 | Outpatient (CLI) | payer MEDICARE, SELFPAY ==
[2020-10-19 14:43] LABS: Hematocrit 45.1 % (42.0-52.0); Hemoglobin 15.3 g/dL (14.0-18.0); Mean Corpuscular HGB Conc 33.9 g/dl (32-36); Mean Corpuscular Hemoglobin 33.9 pg (26-34); Mean Platelet Volume 8.8 fl (7.4-10.4); Platelet Count Result 209 k/mm3 (150-375); Red Blood Count 4.51 M/mm3 (4.6-6.20); Red Cell Distribution Width 12.7 % (11.5-14.5); White Blood Count 6.9 K/mm3 (4.5-10.0)
[2020-10-19 14:47] LABS: Add Urine Microscopic? YES
[2020-10-19 15:26] LABS: Potassium 4.1 mmol/L (3.4-5.0)
[2020-10-19 15:27] LABS: Rheumatoid Factor 39.8 IU/ML (<12)
[2020-10-19 15:35] LABS: Alanine Aminotransferase 34 U/L (4-50); Albumin Level 4.5 g/dL (3.5-5.1); Alkaline Phosphatase 53 U/L (38-126); Anion Gap 10 mmol/L (8-16); Aspartate Amino Transferase 35 U/L (17-59); Bilirubin,Total 0.5 mg/dL (0.2-1.3); Blood Urea Nitrogen 16 mg/dL (9-20); CRP 0.7 mg/dL (<1.0); Calcium 9.2 mg/dL (8.4-10.2); Carbon Dioxide 26 mmol/L (22-30); Chloride 103 mmol/L (98-107); Erythrocyte Sedimentation Rate 15 mm/hr (0-20); Estimated Glomerular Filt Rate > 60; Glucose 99 mg/dL (75-110); Sodium 139 mmol/L (137-145); Uric Acid 7.4 mg/dL (3.5-8.5)
[2020-10-19 15:39] LABS: Appearance Urine Clear (Clear); Color Urine Yellow (Yellow)
[2020-10-19 15:40] LABS: Bilirubin Urine Negative (Negative); Blood Urine Trace (Negative); Glucose Urine UA Negative (Negative); Ketones Urine Negative (Negative); Leukocyte Esterase Ur Negative LEU/UL (Negative); Nitrate Urine Negative (Negative); Protein Urine Trace mg/dL (Negative); Specific Grav Ur 1.015 (1.001-1.035); Urobilinogen Urine 0.2 mg/dL (<2.0)
[2020-10-19 15:41] LABS: RBC Urine 0-2 /hpf (0-2); WBC Urine 0-3 /hpf (0-3)
[2020-10-19 15:42] LABS: Squamous Epithelial Cell Urine Moderate /hpf (Few)
[2020-10-19 15:43] LABS: Bacteria Urine None seen /hpf
== END 2020-10-19 14:16 | disposition home or self-care (01) ==
LOC: ANHLAB 14:17
PROVIDERS: PCP Family Medicine; Visit Provider Internal Medicine
DX: M05.79 Rheumatoid arthritis with rheumatoid factor of multiple sites without organ or systems involvement (principal); Z51.81 Encounter for therapeutic drug level monitoring; Z79.899 Other long term (current) drug therapy; E79.0 Hyperuricemia without signs of inflammatory arthritis and tophaceous disease; M19.90 Unspecified osteoarthritis, unspecified site
CPT/HCPCS: 36415; 80053; 81001; 84550; 85027; 85652; 86140; 86430

== ENCOUNTER 2021-01-04 14:21 | Outpatient (CLI) | payer MEDICARE, SELFPAY ==
[2021-01-04 15:02] LABS: Basophils Absolute Auto 0.1 K/mm3 (0.0-0.1); Basophils Percent Auto 1.1 % (0.2-1.2); Eosinophils Absolute Auto 0.3 K/mm3 (0-0.3); Eosinophils Percent Auto 4.3 % (0-4.4); Hematocrit 43.4 % (42.0-52.0); Hemoglobin 14.8 g/dL (14.0-18.0); Immature Granulocyte Absolute 0.01 K/mm3 (0.00-0.031); Immature Granulocyte Percent A 0.2 % (0-0.5); Lymphocytes Absolute Auto 1.35 K/mm3 (0.9-3.2); Lymphocytes Percent Auto 22.1 % (18.3-44.2); Mean Corpuscular HGB Conc 34.1 g/dl (32-36); Mean Corpuscular Hemoglobin 33.6 pg (26-34); Mean Corpuscular Volume 98.6 fl (80-100); Monocytes Absolute Auto 0.7 K/mm3 (0.1-0.6); Monocytes Percent Auto 11.3 % (2.6-8.5); Neutrophils Absolute Auto 3.7 K/mm3 (1.3-6.7); Platelet Count Result 223 k/mm3 (150-375); Red Cell Distribution Width 12.3 % (11.5-14.5); White Blood Count 6.1 K/mm3 (4.5-10.0)
[2021-01-04 16:55] LABS: Alanine Aminotransferase 40 U/L (4-50); Albumin Level 4.4 g/dL (3.5-5.1); Alkaline Phosphatase 62 U/L (38-126); Anion Gap 10 mmol/L (8-16); Aspartate Amino Transferase 38 U/L (17-59); Bilirubin,Total 0.6 mg/dL (0.2-1.3); Blood Urea Nitrogen 17 mg/dL (9-20); Calcium 9.7 mg/dL (8.4-10.2); Carbon Dioxide 26 mmol/L (22-30); Chloride 104 mmol/L (98-107); Cholesterol 187 mg/dL (0-200); Estimated Glomerular Filt Rate > 60; Glucose 116 mg/dL (75-110); HDL Direct 50 mg/dL; Potassium 4.8 mmol/L (3.4-5.0); Sodium 140 mmol/L (137-145); Triglycerides 128 mg/dL (<150)
[2021-01-04 17:05] LABS: LDL Cholesterol Direct 99 mg/dL
[2021-01-04 17:37] LABS: Hemoglobin A1C 6.2 % (<5.7)
== END 2021-01-04 14:22 | disposition home or self-care (01) ==
LOC: ANHLAB 14:23
PROVIDERS: PCP Family Medicine; Visit Provider Family Medicine
DX: E11.9 Type 2 diabetes mellitus without complications (principal); E55.9 Vitamin D deficiency, unspecified; E78.5 Hyperlipidemia, unspecified; I10 Essential (primary) hypertension; Z00.00 Encounter for general adult medical examination without abnormal findings
CPT/HCPCS: 36415; 80053; 80061; 82306; 83036; 84443; 85025

== ENCOUNTER 2021-02-28 11:04 | Outpatient (CLI) | payer MEDICARE, SELFPAY ==
--- NOTE | ~2021-02-28 | NM_ITS ---
EXAMINATION: NM bone scan whole body DATE: 02/28/2021 14:34 INDICATION: Prostate cancer TECHNIQUE: 25.7 mCi Tc-99m HDP was administered intravenously. Delayed whole-body scintigrams were o btained. COMPARISON: CT dated 02/28/2021 FINDINGS: Likely degenerative joint centered uptake at the bilateral mid and forefeet, bilateral chronic likely joints, radial aspect of the bilateral carpi and at the medial compartment of the right knee. Mild r esidual uptake at old healed fractures of the anterior right sixth and seventh ribs. Mild thoracic le vocurvature. No other suspicious foci of abnormal bone uptake. IMPRESSION: 1. Typical pattern of scattered mild degenerative joint centered uptake as well as mild uptake associ ated with a couple old healed anterior right sixth and seventh rib fractures. 2. No other suspicious foci of abnormal bone uptake to suggest metastatic disease. Reviewed, dictated and finalized at location A. IMPRESSION: 1. Typical pattern of scattered mild degenerative joint centered uptake as well as mild uptake associated with a couple old healed anterior right sixth and se venth rib fractures. 2. No other suspicious foci of abnormal bone uptake to suggest metastatic disea se.
--- NOTE | ~2021-02-28 | XR_ITS ---
XR chest 2V DATE: 02/28/2021 12:05 INDICATION: Prostate cancer TECHNIQUE: PA and lateral views COMPARISON: 07/15/2020 AP and lateral chest FINDINGS: Heart size is within normal range. Is aortic unfolding and aortic arch calcification. No hi lar or mediastinal enlargement. There is discoid atelectasis or scarring at the lung bases. No pulmonary consolidation, pleural effus ion or pneumothorax. IMPRESSION: Mild bibasilar discoid atelectasis and/or scarring Reviewed, dictated and finalized at location A.
--- NOTE | ~2021-02-28 | CT_ITS ---
EXAMINATION: CT abdomen pelvis w con DATE: 02/28/2021 12:16 INDICATION: Prostate cancer TECHNIQUE: Computed tomography (CT) of the abdomen and pelvis was performed with 100 cc Omnipaque 350 intravenous contrast. Automated exposure control and iterative reconstruction technique were employe d. Exam dose: 1425.66 mGy-cm total exam DLP. COMPARISON: None. FINDINGS: Mild discoid atelectasis or scarring at the lung bases. Normal heart size. Coronary artery calcifications. No pericardial or pleural effusion. Pulmonary emboli are identified in the middle lobe and bilateral lower lobes. Diffuse hepatic steatosis. The liver, spleen, pancreas, adrenal glands are otherwise unremarkable. Approximately 10.7 x 11.8 mm left renal pelvic calculus, without hydronephrosis. Approximately 3.3 x 5 mm lower pole left renal calculus. Approximately 3.5 mm distal left ureteral calculus with minimal left hydroureter. No right urinary tract calculus or hydronephrosis. The urinary bladder is unremarkable. There is prostate enlargement and calcification. Diverticulosis of left colon; no CT evidence of diverticulitis. No bowel obstruction, bowel wall thic kening, pneumatosis or intraperitoneal free. There is atherosclerotic calcification of thrombus of the abdominal aorta No intraperitoneal or retroperitoneal or pelvic mass lesion or adenopathy or ascites is noted otherwi se. Multilevel degenerative disc disease of lumbar spine with associated retrolisthesis at L3-4. No suspicious osteolytic or osteoblastic lesions are noted. IMPRESSION: Bilateral lower lobe and middle lobe pulmonary embolism Distal left ureteral 3.5 mm calculus; minimal left hydroureter 10.7 x 11.8 mm left renal pelvic calculus 3.3 x 5 mm lower pole left renal calculus Hepatic steatosis Diverticulosis of the left colon; no CT evidence of diverticulitis Dr. Owens telephoned the report including middle lobe and bilateral lower lobe pulmonary emboli as wel l as the urinary tract calculi to Dr. Walker on 02/28/2021 at 1305 hours. Reviewed, dictated and finalized at Location A. Reviewed, dictated and finalized at location A. IMPRESSION: Bilateral lower lobe and middle lobe pulmonary embolism Distal left ureteral 3.5 mm calculus; minimal left hydroureter 10.7 x 11.8 mm left renal pelvic calculus 3.3 x 5 mm lower pole left renal calculus Hepatic steatosis Diverticulosis of the left colon; no CT evidence of diverticulitis Dr. Owens telephoned the report including middle lobe and bilateral lower lobe p ulmonary emboli as well as the urinary tract calculi to Dr. Walker on 02/28/2021 at 1305 hours.
[2021-02-28 12:13] LABS: Estimated Glomerular Filt Rate > 60
== END 2021-02-28 11:05 | disposition home or self-care (01) ==
PROVIDERS: PCP Family Medicine; Visit Provider Urology
DX: C61 Malignant neoplasm of prostate (principal); R91.8 Other nonspecific abnormal finding of lung field
CPT/HCPCS: 71046; 74177; 78306; A9561; Q9967

== ENCOUNTER 2021-02-28 14:34 | Emergency (ER) | payer MEDICARE, SELFPAY ==
--- NOTE | ~2021-02-28 | US_ITS ---
EXAMINATION: US venous doppler [facility] DATE: 02/28/2021 15:42 INDICATION: Pulmonary emboli. TECHNIQUE: Grayscale ultrasound images without and with compression and Doppler ultrasound images of the bilateral lower extremity veins were obtained. COMPARISON: None. FINDINGS: The visualized portions of right common femoral vein, profunda (deep) femoral vein, femoral vein, pop liteal vein, peroneal veins, posterior tibial veins, and greater saphenous vein outflow are patent. The visualized portions of left common femoral vein, profunda femoral vein, femoral vein, popliteal v ein, peroneal veins, posterior tibial veins, and greater saphenous vein outflow are patent. IMPRESSION: 1. No deep venous thrombosis. Reviewed, dictated and finalized at location A.
[2021-02-28 15:16] VITALS: PULSE 92; RESP 18; TEMP 37.3; O2SAT 94
[2021-02-28 15:36] LABS: Basophils Absolute Auto 0.1 K/mm3 (0.0-0.1); Basophils Percent Auto 0.9 % (0.2-1.2); Eosinophils Absolute Auto 0.3 K/mm3 (0-0.3); Eosinophils Percent Auto 3.8 % (0-4.4); Hematocrit 42.6 % (42.0-52.0); Hemoglobin 14.2 g/dL (14.0-18.0); Immature Granulocyte Absolute 0.02 K/mm3 (0.00-0.031); Immature Granulocyte Percent A 0.3 % (0-0.5); Lymphocytes Absolute Auto 1.46 K/mm3 (0.9-3.2); Lymphocytes Percent Auto 19.6 % (18.3-44.2); Mean Corpuscular HGB Conc 33.3 g/dl (32-36); Mean Corpuscular Hemoglobin 33.9 pg (26-34); Mean Corpuscular Volume 101.7 fl (80-100); Mean Platelet Volume 9.1 fl (7.4-10.4); Monocytes Absolute Auto 0.8 K/mm3 (0.1-0.6); Monocytes Percent Auto 10.3 % (2.6-8.5); Neutrophils Absolute Auto 4.9 K/mm3 (1.3-6.7); Neutrophils Percent Auto 65.1 % (45.5-73.1); Platelet Count Result 192 k/mm3 (150-375); Red Blood Count 4.19 M/mm3 (4.6-6.20); Red Cell Distribution Width 12.5 % (11.5-14.5); White Blood Count 7.5 K/mm3 (4.5-10.0)
[2021-02-28 15:47] LABS: Alanine Aminotransferase 35 U/L (4-50); Albumin Level 4.3 g/dL (3.5-5.1); Alkaline Phosphatase 70 U/L (38-126); Anion Gap 9 mmol/L (8-16); Aspartate Amino Transferase 31 U/L (17-59); Bilirubin,Total 0.4 mg/dL (0.2-1.3); Blood Urea Nitrogen 17 mg/dL (9-20); Calcium 9.6 mg/dL (8.4-10.2); Carbon Dioxide 24 mmol/L (22-30); Chloride 107 mmol/L (98-107); Estimated CRCL calculation 63 ml/min; Estimated Glomerular Filt Rate > 60; Glucose 120 mg/dL (65-110); Sodium 140 mmol/L (137-145)
[2021-02-28 15:50] LABS: INR 0.9; Prothrombin Time 12.2 Seconds (11.1-14.7)
[2021-02-28 15:51] LABS: Partial Thromboplastin Time 24.1 SECONDS (22.3-36.8)
[2021-02-28 15:59] LABS: NT Pro B Type Natriuretic Pept 175 pg/mL (5-100); Troponin I < 0.012 ng/mL (0.000-0.034)
--- NOTE | 2021-02-28 17:24 | ED.GENADULT ---
HPI - General Adult General Chief complaint: Unspecified Stated complaint: CT scan - PE Time Seen by Provider: 02/28/21 17:24 Source: patient Limitations: no limitations History of Present Illness HPI narrative: Patient is 75 years old white male has a recent diagnosis of prostatic cancer 2 weeks ago. Today came to the emergency was seen by Dr. taylor the urologist, who send him to the hospital to get bone scan, CT scan of the chest and chest x-ray to rule out any possibility of prostatic metastasis. Before starting treatment. Patient is asymptomatic. Patient denies any leg pain, chest pain or shortness of breath. Patient is fully vaccinated for COVID-19. Denies any coughing, fever, chills, nausea, vomiting, chest pain or back pain. Patient is healthy otherwise only past medical history of osteoarthritis. Patient does not take medication. Any medicine at home except for osteoarthritis Related Data Home Medications Medication Instructions Recorded Confirmed brimonidine 0.2 %-timolol 0.5 % 1 drop EACH EYE Q12H 07/08/19 12/29/20 eye drops travoprost 0.004 % eye drops 1 drop EACH EYE QPM 07/08/19 12/29/20 Systane Balance 1 drp OPHTHALMIC (EYE) QID PRN 07/02/20 12/29/20 metoprolol tartrate 50 mg PO Q12H 07/02/20 12/29/20 testosterone 2 pump TRANSDERMAL DAILY PRN 07/02/20 12/29/20 diclofenac sodium 1 % topical gel 2 g TOPICAL QID PRN gm 12/29/20 12/29/20 dorzolamide 2 % eye drops 1 drp LEFT EYE TID ml 12/29/20 12/29/20 Allergies Allergy/AdvReac Type Severity Reaction Status Date / Time No Known Drug Allergies Allergy Mild unknown Verified 12/29/20 15:56 Review of Systems Review of Systems: CONSTITUTIONAL: Denies fever, chills, or sweats. EYES: Denies visual changes, redness, or discharge. ENT: Denies rhinorrhea, congestion, sore throat, or otalgia. CARDIOVASCULAR: Denies chest pain, palpitations, or edema. RESPIRATORY: Denies cough or dyspnea. GASTROINTESTINAL: Denies abdominal pain, nausea, vomiting, or diarrhea. GENITOURINARY: Denies dysuria or hematuria. SKIN: Denies rash or itching. MUSCULOSKELETAL: Denies back pain, joint pain, or myalgia. NEUROLOGIC: Denies headache, numbness, or weakness. PSYCHIATRIC: Denies anxiety or depression. [facility] Past Medical History Medical History Bacteremia (~10/2019) UTI with bacteremia, CNSS not saprophyticus. Khoury palsy (~2018) Essential hypertension Glaucoma Gout Hypogonadism in male Uses testosterone gel. Osteoarthritis Overactive bladder Paroxysmal atrial fibrillation (~10/2019) associated with sepsis Pre-diabetes Hemoglobin A1c was 6.3% in April 2019. Retinal vein occlusion of left eye Rheumatoid arthritis with rheumatoid factor of multiple sites without organ or systems involvement He has been methotrexate since being hospitalized with sepsis secondary to UTI in 10/2019, now on Plaquenil. Transient ischemic attack (~2014) Vitamin D deficiency Surgical History Surgical History History of appendectomy (~1957) History of left cataract surgery (~2009) Family History Family History Other Acute myocardial infarction Diabetes mellitus Heart disease Hypertension Social History Social History Social History: The patient lives in [place] with his . They have 3 sons and 1 daughter. His , Vandana, is his emergency contact and he wishes to be a full code. He smoked up to 3 packs of cigarettes per day and quit 1995. No alcohol or drug abuse. Smoking status: Former smoker Alcohol intake: former Alcohol use details: occasional glass of wine Substance use: never Gender identity (if verbalized by the patient): Male Spiritual care concerns: Yes (Gnosticism) Agree to blood products: Yes Exam Narrative: General appearance:
--- NOTE | 2021-02-28 17:40 | ECG_ITS ---
Measurements Intervals [place] Rate: 82 P: 26 NH: 217 QRS: 41 QRSD: 161 T: -8 QT: 408 QTc: 477 Interpretive Statements SINUS RHYTHM WITH FIRST DEGREE AV BLOCK RIGHT BUNDLE BRANCH BLOCK BASELINE ARTIFACT- II, III, AVF ABNORMAL ECG Electronically Signed On 02-28-2021 20:03:11 CDT by Francisco Pérez D.O.
[2021-02-28 17:46] LABS: Alveolar/Arterial O2 Gradient 21.5 mmHg; Base Excess ABG -0.5 mEq/l (+/-2.0); Device ROOM AIR; Fractional Inspired Oxygen 21 %; Modified Allen's Test Pass; Oxygen Content ABG 19.3 %vol (16.0-22.0); Oxygen Saturation ABG 94.7 % (95.0-100.0); Oxyhemoglobin 93.4 % THb (90.0-100.0); PCO2 ABG 44.2 mmHg (35.0-45.0); PO2 ABG 75.3 mmHg (80.0-100.0); PO2 FiO2 Ratio Arterial Blood 3.59 %; Site Drawn RIGHT RADIAL; Total Hemoglobin 14.7 g/dL (12.0-18.0); pH ABG 7.371 (7.350-7.450)
[2021-02-28] MEDS: APIXABAN 5 MG TABLET 10 MG PO (18:45)
[2021-02-28 18:47] VITALS: BP 129/117; PULSE 87; RESP 18; O2SAT 96
[2021-02-28 19:04] VITALS: BP 129/117; PULSE 87; RESP 27; O2SAT 95
== END 2021-02-28 19:07 | disposition home or self-care (01) ==
PROVIDERS: Emergency Medicine; Emergency Provider Emergency Medicine; PCP Family Medicine
DX: I26.99 Other pulmonary embolism without acute cor pulmonale (principal); C61 Malignant neoplasm of prostate; I10 Essential (primary) hypertension; M19.90 Unspecified osteoarthritis, unspecified site; H40.9 Unspecified glaucoma; M10.9 Gout, unspecified; N32.81 Overactive bladder; I48.0 Paroxysmal atrial fibrillation; R73.03 Prediabetes; M05.79 Rheumatoid arthritis with rheumatoid factor of multiple sites without organ or systems involvement; Z86.73 Personal history of transient ischemic attack (TIA), and cerebral infarction without residual deficits; E55.9 Vitamin D deficiency, unspecified; Z98.42 Cataract extraction status, left eye; Z87.891 Personal history of nicotine dependence; I44.0 Atrioventricular block, first degree; I45.10 Unspecified right bundle-branch block
CPT/HCPCS: 36415; 36600; 71046; 74177; 78306; 80053; 82805; 83880; 84484; 85025; 85610; 85730; 93005; 93970; 99284; A9270; A9561; Q9967

== ENCOUNTER 2021-03-08 12:06 | Outpatient (CLI) | payer MEDICARE, SELFPAY ==
--- NOTE | ~2021-03-08 | XR_ITS ---
XR abdomen/kub 1V DATE: 03/08/2021 12:35 INDICATION: Left ureteral stone TECHNIQUE: AP projection, 2 views COMPARISON: 02/28/2021 CT abdomen pelvis with IV contrast material FINDINGS: Again noted is a prominent approximately 1.4 cm calcified calculus at the left ureteropelvi c junction. Small nonobstructing lower pole left renal calcified calculus. No right renal calcifications are detected. Shadows are intact. No visceromegaly is evident. No evidence of bowel obstruction. There is a promine nt amount of fecal material in the right colon. Multilevel degenerative disc disease of the lumbar spine. There is thoracolumbar dextroscoliosis. IMPRESSION: Approximately 1.4 cm left renal calcified ureteropelvic calculus Small lower pole nonobstructing left renal calcified calculus Reviewed, dictated and finalized at Location A. Reviewed, dictated and finalized at location A.
== END 2021-03-08 12:07 | disposition home or self-care (01) ==
PROVIDERS: PCP Family Medicine; Visit Provider Urology
DX: N20.0 Calculus of kidney (principal)
CPT/HCPCS: 74018

== ENCOUNTER 2021-03-24 16:27 | Outpatient (CLI) | payer MEDICARE, SELFPAY ==
--- NOTE | ~2021-03-24 | MR_ITS ---
EXAMINATION: MR pelvis wo/w con DATE: 03/24/2021 17:58 INDICATION: Malignant neoplasm of prostate. TECHNIQUE: Magnetic resonance imaging (MRI) of the pelvis was performed without and with 20 mL MultiH ance intravenous contrast. Sequences included axial and coronal FS FIESTA, coronal T2-weighted FS FSE , axial T2-weighted FSE, axial STIR FSE, coronal and axial LAVA, axial dual-echo T1-weighted FSPGR, a nd axial DWI. Postcontrast sequences included coronal LAVA-flex and a time course of axial LAVA. COMPARISON: CT abdomen and pelvis 02/28/2021 FINDINGS: The prostate is mildly enlarged. There are no pathologically enlarged lymph nodes. There is a right i nguinal hernia containing fat. There is severe lumbar spondylosis. IMPRESSION: 1. Mildly enlarged prostate. No evidence of metastatic disease. Reviewed, dictated and finalized at location A.
== END 2021-03-24 16:28 | disposition home or self-care (01) ==
PROVIDERS: PCP Family Medicine; Visit Provider Radiology Radiation Oncology
DX: C61 Malignant neoplasm of prostate (principal)
CPT/HCPCS: 72197; A9577

== ENCOUNTER 2021-07-12 15:14 | Outpatient (CLI) | payer MEDICARE, SELFPAY ==
[2021-07-12 15:57] LABS: Alanine Aminotransferase 27 U/L (4-50); Albumin Level 4.5 g/dL (3.5-5.1); Alkaline Phosphatase 67 U/L (38-126); Anion Gap 6 mmol/L (8-16); Aspartate Amino Transferase 30 U/L (17-59); Bilirubin,Total 0.4 mg/dL (0.2-1.3); Blood Urea Nitrogen 18 mg/dL (9-20); Calcium 9.4 mg/dL (8.4-10.2); Carbon Dioxide 29 mmol/L (22-30); Chloride 99 mmol/L (98-107); Estimated Glomerular Filt Rate 59; Glucose 120 mg/dL (65-110); Potassium 4.5 mmol/L (3.4-5.0); Sodium 134 mmol/L (137-145)
== END 2021-07-12 15:15 | disposition home or self-care (01) ==
PROVIDERS: PCP Family Medicine; Visit Provider Family Medicine
DX: R73.03 Prediabetes (principal); I10 Essential (primary) hypertension
CPT/HCPCS: 36415; 80053; 83036

== ENCOUNTER 2022-01-05 13:55 | Outpatient (CLI) | payer MEDICARE, SELFPAY ==
[2022-01-05 14:17] LABS: Basophils Percent Auto 0.9 % (0.2-1.2); Eosinophils Absolute Auto 0.3 K/mm3 (0-0.3); Eosinophils Percent Auto 5.8 % (0-4.4); Hemoglobin 13.6 g/dL (14.0-18.0); Immature Granulocyte Absolute 0.02 K/mm3 (0.00-0.031); Immature Granulocyte Percent A 0.4 % (0-0.5); Lymphocytes Absolute Auto 0.53 K/mm3 (0.9-3.2); Lymphocytes Percent Auto 11.3 % (18.3-44.2); Mean Corpuscular Volume 102.8 fl (80-100); Mean Platelet Volume 8.5 fl (7.4-10.4); Monocytes Absolute Auto 0.6 K/mm3 (0.1-0.6); Monocytes Percent Auto 13.4 % (2.6-8.5); Neutrophils Absolute Auto 3.2 K/mm3 (1.3-6.7); Neutrophils Percent Auto 68.2 % (45.5-73.1); Platelet Count Result 166 k/mm3 (150-375); Red Blood Count 3.89 M/mm3 (4.6-6.20); White Blood Count 4.7 K/mm3 (4.5-10.0)
[2022-01-05 20:20] LABS: Alanine Aminotransferase 35 U/L (6-50); Albumin Level 4.3 g/dL (3.5-5.1); Alkaline Phosphatase 62 U/L (38-126); Anion Gap 7 mmol/L (8-16); Aspartate Amino Transferase 31 U/L (17-59); Bilirubin,Total 0.2 mg/dL (0.2-1.3); Blood Urea Nitrogen 20 mg/dL (9-20); Calcium 9.2 mg/dL (8.4-10.2); Carbon Dioxide 25 mmol/L (22-30); Chloride 105 mmol/L (98-107); Cholesterol 191 mg/dL (0-200); Estimated Glomerular Filt Rate > 60; Glucose 104 mg/dL (65-110); HDL Direct 46 mg/dL; Potassium 4.5 mmol/L (3.4-5.0); Sodium 137 mmol/L (137-145); Triglycerides 126 mg/dL (<150); Uric Acid 7.4 mg/dL (3.5-8.5)
[2022-01-05 20:30] LABS: LDL Cholesterol Direct 107 mg/dL
[2022-01-05 20:49] LABS: Thyroid Stimulating Hormone 0.983 uIU/mL (0.465-4.680); Vitamin D 25 Hydroxy 26.1 ng/mL
[2022-01-05 20:51] LABS: Hemoglobin A1C 5.8 % (<5.7)
== END 2022-01-05 13:56 | disposition home or self-care (01) ==
LOC: ANHLAB 13:56
PROVIDERS: PCP Family Medicine; Visit Provider Family Medicine
DX: I10 Essential (primary) hypertension (principal); Z13.220 Encounter for screening for lipoid disorders; M05.79 Rheumatoid arthritis with rheumatoid factor of multiple sites without organ or systems involvement; M10.00 Idiopathic gout, unspecified site; R73.03 Prediabetes; E55.9 Vitamin D deficiency, unspecified
CPT/HCPCS: 36415; 80053; 80061; 82306; 83036; 84443; 84550; 85025

== ENCOUNTER 2022-01-11 10:33 | Outpatient (CLI) | payer MEDICARE, SELFPAY ==
--- NOTE | ~2022-01-11 | CT_ITS ---
EXAMINATION: CT abdomen pelvis wo/w con DATE: 01/11/2022 11:30 INDICATION: GROSS HEMATURIA TECHNIQUE: Computed tomography (CT) of the abdomen and pelvis was performed without and with 130 mL O mnipaque- 300 intravenous contrast. Automated exposure control and iterative reconstruction technique were employed. The dose-length product was 2837.75 mGy-cm. COMPARISON: MRI pelvis 03/24/2021, CT abdomen and pelvis 02/28/2021. FINDINGS: Lower thorax: Moderate coronary artery calcification. Liver: Fatty infiltration. Biliary/Gallbladder: Gallbladder is normal. No bile duct dilation. Pancreas: No mass or duct dilation. Atrophy Spleen: Normal. Adrenals:No mass. Kidneys: 17 and 7 mm left inferior pole calculi. Right inferior pole scarring and a simple cyst. Bila teral hypodensities, too small to characterize but likely represent cysts. Bilateral perinephric stra nding. No filling defect in the upper collecting system. GI tract: No small or large bowel dilation. Normal appendix. Diverticulosis without diverticulitis. Mesentery/Peritoneum: No ascites, mass, or free air. Retroperitoneum: No mass. Atherosclerotic abdominal aortic and/or arterial calcifications. 2.9 cm inf rarenal abdominal aortic aneurysm. Pelvis: Bladder wall thickening likely secondary to chronic outlet obstruction and incomplete distent ion, however there is somewhat asymmetric thickening inferiorly and near the bladder outlet with mild lobulation of tissue. Soft Tissues: Soft tissues and body wall unremarkable. Bones: No acute osseous finding. IMPRESSION: Mild asymmetric bladder wall thickening and lobulation at the bladder outlet, consider cystoscopy for further evaluation. Left nephrolithiasis. 2.9 cm infrarenal abdominal aortic aneurysm. Steatosis. Reviewed, dictated and finalized at location K. IMPRESSION: Mild asymmetric bladder wall thickening and lobulation at the bladder outlet, c onsider cystoscopy for further evaluation. Left nephrolithiasis. 2.9 cm infrare nal abdominal aortic aneurysm. Steatosis.
--- NOTE | ~2022-01-11 | XR_ITS ---
EXAM: XR abdomen/kub 1V DATE: 01/11/2022 11:36 HISTORY: GROSS HEMATURIA . COMPARISON: CT abdomen pelvis, same date. FINDINGS: Clear lung bases. Normal bowel gas pattern. No organomegaly. 2 inferior pole left renal ca lcifications, the largest measures up to 15 mm. Regional bones and soft tissues normal for age. IMPRESSION: Left nephrolithiasis. Reviewed, dictated and finalized at location K. IMPRESSION: Left nephrolithiasis.
== END 2022-01-11 10:34 | disposition home or self-care (01) ==
LOC: ANHIMG 10:37
PROVIDERS: PCP Family Medicine; Visit Provider Nurse Practitioner Adult Health
DX: R31.0 Gross hematuria (principal); N20.0 Calculus of kidney
CPT/HCPCS: 74018; 74178; Q9967

== ENCOUNTER 2022-02-09 13:39 | Outpatient (CLI) | payer MEDICARE, SELFPAY ==
[2022-02-12 14:43] LABS: Homocysteine 14.9 umol/L (<11.4)
[2022-02-12 21:06] LABS: Antithrombin III Activity 93 % normal (80-135)
[2022-02-15 13:59] LABS: Lupus dRVVT 1:1 Mix Interpreta Not Indicated; Lupus dRVVT Screen 39 sec (<=45); PTT-LA Screen 32 sec (<=40)
[2022-02-19 22:58] LABS: Factor V (Leiden) Mutation NEGATIVE
== END 2022-02-09 13:40 | disposition home or self-care (01) ==
LOC: ANHLAB 13:41
PROVIDERS: PCP Family Medicine; Visit Provider Internal Medicine Hematology & Oncology
DX: I26.99 Other pulmonary embolism without acute cor pulmonale (principal)
CPT/HCPCS: 36415; 81241; 83090; 85300; 85303; 85306; 85613; 85730; 86146

== ENCOUNTER 2022-03-02 02:56 | Emergency (ER) | payer MEDICARE, SELFPAY ==
--- NOTE | ~2022-03-02 | CT_ITS ---
EXAMINATION: CT abdomen pelvis wo con DATE: 03/02/2022 04:04 INDICATION: Hematuria. TECHNIQUE: Computed tomography (CT) of the abdomen and pelvis was performed without intravenous contr ast. Automated exposure control and iterative reconstruction technique were employed. The dose-length product was 1391.44 mGy-cm. COMPARISON: CT abdomen and pelvis 01/11/2022, 02/28/21 FINDINGS: The visualized portions of the lung bases demonstrate mild atelectasis. No pleural effusion . The heart size is normal. There are coronary artery calcifications. No pericardial effusion. There is diffuse hepatic steatosis. The gallbladder, spleen, pancreas, and adrenal glands are normal. There is a 10 mm cyst in right kidney. There are 2 stones in the left kidney with the larger measuring 14 mm. There is a 3 mm stone in distal left ureter. There is diffuse bladder wall thickening, which may be secondary to chronic outlet obstruction from the mildly enlarged prostate. There are calcification s in the prostate. There is diverticulosis of the colon without evidence of diverticulitis. There are no dilated loops of bowel. The appendix is not visualized. There are no pathologically enlarged lymp h nodes. There is no free intraperitoneal fluid. There is a 3.2 cm fusiform aneurysm of infrarenal ao rta. There is a right inguinal hernia containing fat. There is severe lumbar spondylosis. Lumbar dext roscoliosis is noted. IMPRESSION: 1. 3 mm stone in distal left ureter, stable from 02/28/21. No hydronephrosis. 2. Nonobstructing left kidney stones. Reviewed, dictated and finalized at location A.
[2022-03-02 03:00] VITALS: BP 130/95; PULSE 90; RESP 18; TEMP 36.6; O2SAT 96
[2022-03-02 03:30] LABS: Basophils Absolute Auto 0.1 K/mm3 (0.0-0.1); Basophils Percent Auto 1.4 % (0.2-1.2); Eosinophils Absolute Auto 0.3 K/mm3 (0-0.3); Eosinophils Percent Auto 5.1 % (0-4.4); Hematocrit 39.6 % (42.0-52.0); Hemoglobin 13.1 g/dL (14.0-18.0); Immature Granulocyte Absolute 0.02 K/mm3 (0.00-0.031); Immature Granulocyte Percent A 0.4 % (0-0.5); Lymphocytes Absolute Auto 0.66 K/mm3 (0.9-3.2); Mean Corpuscular HGB Conc 33.1 g/dl (32-36); Mean Corpuscular Hemoglobin 35.3 pg (26-34); Mean Corpuscular Volume 106.7 fl (80-100); Mean Platelet Volume 8.9 fl (7.4-10.4); Monocytes Absolute Auto 0.8 K/mm3 (0.1-0.6); Neutrophils Absolute Auto 3.3 K/mm3 (1.3-6.7); Neutrophils Percent Auto 65.1 % (45.5-73.1); Platelet Count Result 186 k/mm3 (150-375); Red Blood Count 3.71 M/mm3 (4.6-6.20); Red Cell Distribution Width 12.7 % (11.5-14.5); White Blood Count 5.1 K/mm3 (4.5-10.0)
[2022-03-02 03:31] LABS: Add Urine Microscopic? YES; Appearance Urine Slightly Cloudy (Clear); Bilirubin Urine 1+ (Negative); Blood Urine 3+ (Negative); Color Urine Brown (Yellow); Glucose Urine UA Negative (Negative); Ketones Urine Negative (Negative); Leukocyte Esterase Ur 1+ LEU/UL (Negative); Nitrate Urine Negative (Negative); Protein Urine 3+ mg/dL (Negative); Urobilinogen Urine 0.2 mg/dL (<2.0); pH Urine 5.5 (5.0-9.0)
[2022-03-02 03:36] LABS: Bacteria Urine Trace /hpf; RBC Urine >75 /hpf (0-2); WBC Urine >75 /hpf
[2022-03-02 03:40] LABS: Platelet Estimate Adequate (Adequate); Stomatocytes 1+ (NORMAL)
[2022-03-02 03:44] LABS: Alanine Aminotransferase 31 U/L (6-50); Albumin Level 4.5 g/dL (3.5-5.1); Alkaline Phosphatase 59 U/L (38-126); Anion Gap 9 mmol/L (8-16); Aspartate Amino Transferase 29 U/L (17-59); Bilirubin,Total 0.4 mg/dL (0.2-1.3); Blood Urea Nitrogen 24 mg/dL (9-20); Calcium 8.9 mg/dL (8.4-10.2); Carbon Dioxide 29 mmol/L (22-30); Chloride 102 mmol/L (98-107); Estimated CRCL calculation 51 ml/min; Estimated Glomerular Filt Rate 49; Glucose 117 mg/dL (65-110); Potassium 3.9 mmol/L (3.4-5.0); Sodium 140 mmol/L (137-145)
--- NOTE | 2022-03-02 04:29 | ED.GENADULT ---
HPI - General Adult General Chief complaint: Urogenital-Male Stated complaint: hematuria Time Seen by Provider: 03/02/22 03:09 History of Present Illness HPI narrative: 76-year-old male with history of prostate cancer and kidney stones presenting to the emergency department for evaluation of hematuria. Patient does have multiple kidney stones for which he is being followed for by urology, Dr. Walker. Patient has completed his treatment for his prostate cancer, patient had previously been on Eliquis for previous blood clots. Patient does follow-up with Dr. Rashid. About [address] Rashid stopped the Eliquis. Patient states tonight about 9 PM he had a urination that had blood in it. Patient states he did pass some clots. Patient denies any associated back pain or abdominal pain. Patient denies any pain with urination. Patient states when he urinated in the emergency department prior to his CT scan that he felt that the urine was more clear but did notice some smaller clots. Related Data Home Medications Medication Instructions Recorded Confirmed brimonidine 0.2 %-timolol 0.5 % drp 03/02/22 eye drops diclofenac sodium 1 % topical gel topical 03/02/22 dorzolamide 2 % eye drops drp 03/02/22 hydroxychloroquine 200 mg tablet mg PO 03/02/22 lisinopril 10 mg tablet mg 03/02/22 metoprolol tartrate 50 mg tablet mg 03/02/22 oxybutynin chloride 10 mg mg PO 03/02/22 tablet,extended release 24 hr tamsulosin 0.4 mg capsule mg PO 03/02/22 travoprost 0.004 % eye drops drp 03/02/22 Allergies Allergy/AdvReac Type Severity Reaction Status Date / Time No Known Drug Allergies Allergy Mild unknown Verified 03/02/22 04:08 [facility] Past Medical History Medical History Bacteremia (~10/2019) UTI with bacteremia, CNSS not saprophyticus. Khoury palsy (~2018) Essential hypertension Glaucoma Gout Hypogonadism in male Uses testosterone gel. Kidney stones Osteoarthritis Overactive bladder Paroxysmal atrial fibrillation (~10/2019) associated with sepsis Pre-diabetes Hemoglobin A1c was 6.3% in April 2019. Prostate cancer Retinal vein occlusion of left eye Rheumatoid arthritis with rheumatoid factor of multiple sites without organ or systems involvement He has been methotrexate since being hospitalized with sepsis secondary to UTI in 10/2019, now on Plaquenil. Transient ischemic attack (~2014) Vitamin D deficiency Surgical History Surgical History History of appendectomy (~1958) History of left cataract surgery (~2009) Family History Family History Other Acute myocardial infarction Diabetes mellitus Heart disease Hypertension Social History Social History Social History: The patient lives in [place] with his . They have 3 sons and 1 daughter. His , Vandana, is his emergency contact and he wishes to be a full code. He smoked up to 3 packs of cigarettes per day and quit 1995. No alcohol or drug abuse. Smoking status: Former smoker Alcohol intake: former Alcohol use details: occasional glass of wine Substance use: never Gender identity (if verbalized by the patient): Male Spiritual care concerns: Yes (Uatsdin) Agree to blood products: Yes Course Course Emergency Course: Patient denies any pain or complaint. Patient's urine does show some markers of a urinary tract infection. Patient is afebrile and has no leukocytosis. CT scan did show possible cystitis. But showed no obstructing urinary calculi. Patient was treated with Rocephin in the emergency department and discharged home with Keflex. Patient was encouraged to have close follow-up with urology. Patient was comfortable with the plan for treatment and discharge and had no complaints at time of dis
[2022-03-02] MEDS: SODIUM CHLORIDE 0.9% IV 1,000 ML 999 ML IV CONT (05:14)
[2022-03-02 06:15] VITALS: BP 137/79; PULSE 80; RESP 16; O2SAT 97
== END 2022-03-02 06:15 | disposition home or self-care (01) ==
PROVIDERS: Emergency Provider Emergency Medicine; PCP Family Medicine
DX: N39.0 Urinary tract infection, site not specified (principal); N17.9 Acute kidney failure, unspecified; I10 Essential (primary) hypertension; H40.9 Unspecified glaucoma; I48.0 Paroxysmal atrial fibrillation; R73.03 Prediabetes; H34.8122 Central retinal vein occlusion, left eye, stable; M05.79 Rheumatoid arthritis with rheumatoid factor of multiple sites without organ or systems involvement; N32.81 Overactive bladder; M19.90 Unspecified osteoarthritis, unspecified site; E55.9 Vitamin D deficiency, unspecified; N20.2 Calculus of kidney with calculus of ureter; Z98.42 Cataract extraction status, left eye; Z85.46 Personal history of malignant neoplasm of prostate; Z86.73 Personal history of transient ischemic attack (TIA), and cerebral infarction without residual deficits; Z87.442 Personal history of urinary calculi; Z87.891 Personal history of nicotine dependence
CPT/HCPCS: 36415; 74176; 80053; 81001; 85025; 87086; 87147; 87181; 87186; 96365; 99284; J0696; J7030

== ENCOUNTER 2022-04-13 14:21 | Inpatient (IN) | payer MEDICARE, SELFPAY ==
[2022-04-13] VITALS (7 sets, daily range): BP systolic 139–165; BP diastolic 72–100; PULSE 93–108; RESP 18–36; TEMP 36.9–39.4; O2SAT 91–99; BMI 36.3
--- NOTE | ~2022-04-13 | CT_ITS ---
EXAMINATION: CT abdomen pelvis wo/w con DATE: 04/14/2022 12:02 INDICATION: Frequent urinary tract infections. Sepsis. Kidney stones. TECHNIQUE: Computed tomography (CT) of the abdomen and pelvis was performed without and subsequently with 130 CC Omnipaque 350 intravenous contrast. Automated exposure control and iterative reconstructi on technique were employed. Exam dose: 2565.14 mGy-cm total exam DLP. COMPARISON: 03/02/2022 CT abdomen pelvis FINDINGS: Examination is limited by motion The lung bases are clear of consolidation. Normal heart size. No pericardial or pleural effusion. Diffuse fatty infiltration of the liver. The gallbladder is unremarkable. No bile duct or pancreatic duct dilatation. Normal splenic size. Approximately 1.3 cm lower pole right renal cyst. There is a large calculus at the left ureteropelvic junction, because of motion the stone is difficul t to accurately measure for size. There is a small nonobstructing lower pole left renal calculus. Approximately 4 mm distal left ureteral calculus with moderate proximal left hydroureter. No right ur inary tract calculus is noted. There is a De Leon catheter within the urinary bladder. There is prominent thickening of the urinary bl adder wall and some fat stranding around the bladder, suggesting possible cystitis. There is prostate enlargement and prostate calcification. Diverticulosis of the colon; no CT evidence of diverticulitis. No bowel obstruction, bowel wall thick ening, pneumatosis or intraperitoneal free air. There is atherosclerotic calcification but no aneurysm of the abdominal aorta. No intraperitoneal or retroperitoneal or pelvic mass lesion or adenopathy or ascites. Degenerative changes of the thoracic and lumbar spine moderately severe degenerative disc disease at L2-3, L3-4, L4-5 associated mild retrolisthesis at L2-3 and L3-4. No suspicious osteolytic or osteosclerotic lesions are noted. IMPRESSION: Large obstructing left ureteropelvic calculus with moderate left hydronephrosis Small nonobstructing lower pole left renal calculus Diverticulosis of the colon Thickening of the wall of the urinary bladder and perivesical fat stranding, suggesting cystitis Hepatic steatosis Prostate enlargement and calcification Reviewed, dictated and finalized at [facility]. Reviewed, dictated and finalized at location B. IMPRESSION: Large obstructing left ureteropelvic calculus with moderate left h ydronephrosis Small nonobstructing lower pole left renal calculus Diverticulosis of the colon Thickening of the wall of the urinary bladder and perivesical fat stranding, krishnan ggesting cystitis Hepatic steatosis Prostate enlargement and calcification
--- NOTE | ~2022-04-13 | XR_ITS ---
XR chest 1V portable DATE: 04/13/2022 16:10 INDICATION: Shortness of breath. Sepsis. TECHNIQUE: Portable AP chest on 04/13/2022 at 1601 hours COMPARISON: 03/10/2021 PA and lateral chest FINDINGS: Cardiomegaly. Aortic calcification and unfolding. There is mild pulmonary vascular congesti on. Minimal patchy infiltrate and/or atelectasis in the mid and to greater extent lower lung zones. There is minimal if any pleural effusion. No pneumothorax. IMPRESSION: Cardiomegaly, mild pulmonary vascular prominence, suggesting possible mild congestive roberta nge Minimal bilateral lower lung infiltrate and/or atelectasis Reviewed, dictated and finalized at location B. IMPRESSION: Cardiomegaly, mild pulmonary vascular prominence, suggesting possib le mild congestive change Minimal bilateral lower lung infiltrate and/or atelectasis
--- NOTE | ~2022-04-13 | XR_ITS ---
EXAMINATION: XR retrograde pyelo w/stent LT DATE: 04/14/2022 16:48 INDICATION: Left internal ureteral stent placement TECHNIQUE: Fluoroscopic images from a left internal ureteral stent placement are submitted for review . 48 seconds of fluoroscopy time. 73 fluoroscopic images FINDINGS: There is a left double-J internal ureteral stent projecting in expected position, with proximal Franklin loop at the level of the renal pelvis and distal loop in the pelvis within the bladder lumen. IMPRESSION: 1. Left internal ureteral stent placement. Please refer to real-time procedural findings for detail s. Reviewed, dictated and finalized at location A. IMPRESSION: 1. Left internal ureteral stent placement. Please refer to real-time procedur al findings for details.
--- NOTE | ~2022-04-13 | CT_ITS ---
EXAMINATION: CT brain wo con INDICATION: Transient alteration of awareness COMPARISON: 07/15/2020 TECHNIQUE: Standard unenhanced head CT. The dose-length product (DLP) was 681.00 mGy-cm. The mA was a djusted according to patient size. Iterative reconstruction technique was employed. FINDINGS: There is no acute intraparenchymal hemorrhage. No evidence of mass lesion. No evidence of a cute infarction. There is mild periventricular and subcortical hypodensity probably related to small vessel ischemic disease. There is mild prominence of the sulci and ventricles related to cerebral atr ophy. Intracranial calcified cerebral atherosclerosis is noted. There are no extra-axial collections. There is no mass effect or midline shift. The orbits and soft tissues are unremarkable. There is mil d mucosal thickening of the paranasal sinuses. IMPRESSION: 1. No acute intracranial abnormality. 2. Age related findings. Reviewed, dictated and finalized at location A.
--- NOTE | ~2022-04-13 | XR_ITS ---
EXAMINATION: XR abdomen/kub 1V INDICATION: Stones, sepsis TECHNIQUE: Supine views of the abdomen were obtained on three radiographs. COMPARISON: 01/11/[address] from today FINDINGS: There is a 1.4 cm stone at the left ureteropelvic junction. A 3 mm stone is present in the left kidney lower pole. The left distal ureteral stone seen on CT is not definitely identified. The b owel gas pattern is normal. The visualized lung bases are clear. There is severe lumbar spondylosis. IMPRESSION: 1. 1.4 cm stone of the left ureteropelvic junction and 3 mm stone of the left kidney lower pole. Know n left distal ureteral stone not identified. Reviewed, dictated and finalized at location A. IMPRESSION: 1. 1.4 cm stone of the left ureteropelvic junction and 3 mm stone of the left k idney lower pole. Known left distal ureteral stone not identified.
--- NOTE | 2022-04-13 14:44 | ED.AMS ---
HPI - Altered Mental Status General Chief Complaint: Altered Mental Status Stated Complaint: UTI Time Seen by Provider: 04/13/22 14:32 History of Present Illness HPI narrative: Patient is a 76-year-old male with a history of prostate cancer, hypertension, rheumatoid arthritis presenting with confusion. Patient's family states that over the last several days he has been increasingly confused. This is happened in the past when the patient has become septic. Patient was seen earlier today by one of his physicians and told to come to the ER for evaluation. Patient has had a fever for the last day which has responded to Tylenol. T-max of 102. Patient also complains of increased urinary frequency and lower back pain. He has had recurrent UTIs. Patient denies headache, chest pain, shortness of breath, cough, abdominal pain, nausea or vomiting, diarrhea, leg swelling. Related Data Home Medications Medication Instructions Recorded Confirmed brimonidine 0.2 %-timolol 0.5 % 1 drp EACH EYE BID 03/02/22 04/13/22 eye drops (Combigan) diclofenac sodium 1 % topical gel 1 ea topical QID 03/02/22 04/13/22 (Arthritis Pain (diclofenac)) dorzolamide 2 % eye drops 1 drp LEFT EYE TID 03/02/22 04/13/22 hydroxychloroquine 200 mg tablet 400 mg PO DAILY 03/02/22 04/13/22 lisinopril 10 mg tablet 10 mg PO DAILY 03/02/22 04/13/22 oxybutynin chloride 10 mg 10 mg PO DAILY 03/02/22 04/13/22 tablet,extended release 24 hr tamsulosin 0.4 mg capsule 0.4 mg PO DAILY 03/02/22 04/13/22 travoprost 0.004 % eye drops 1 drp EACH EYE HS 03/02/22 04/13/22 Allergies Allergy/AdvReac Type Severity Reaction Status Date / Time No Known Drug Allergies Allergy Mild unknown Verified 04/13/22 14:28 Review of Systems Review of Systems: All systems reviewed & are unremarkable except as noted in HPI and below PMFSH Past Medical History Medical History Bacteremia (~10/2019) UTI with bacteremia, CNSS not saprophyticus. Khoury palsy (~2018) Essential hypertension Glaucoma Gout Hypogonadism in male Uses testosterone gel. Kidney stones Osteoarthritis Overactive bladder Paroxysmal atrial fibrillation (~10/2019) associated with sepsis Pre-diabetes Hemoglobin A1c was 6.3% in April 2019. Prostate cancer Retinal vein occlusion of left eye Rheumatoid arthritis with rheumatoid factor of multiple sites without organ or systems involvement He has been methotrexate since being hospitalized with sepsis secondary to UTI in 10/2019, now on Plaquenil. Transient ischemic attack (~2014) Vitamin D deficiency Surgical History Surgical History History of appendectomy (~195) History of left cataract surgery (~2009) Family History Family History Other Acute myocardial infarction Diabetes mellitus Heart disease Hypertension Social History Social History Social History: The patient lives in [place] with his . They have 3 sons and 1 daughter. His , Vandana, is his emergency contact and he wishes to be a full code. He smoked up to 3 packs of cigarettes per day and quit 1995. No alcohol or drug abuse. Smoking status: Former smoker Alcohol intake: former Alcohol use details: occasional glass of wine Substance use: never Gender identity (if verbalized by the patient): Male Spiritual care concerns: No Agree to blood products: Yes Exam Narrative: GENERAL: Well-appearing, well-nourished, and in no acute distress. HEAD: Normocephalic, atraumatic. EYES: PERRLA and EOMI. ENT: Nares clear, no rhinorrhea or epistaxis. Mucous membranes moist. NECK: Supple. CHEST: Clear to auscultation. No respiratory distress. HEART: Regular rate and rhythm. No murmur heard. Normal peripheral pulses. ABDOMEN: Soft, nontender, nondistend
--- NOTE | 2022-04-13 14:57 | ECG_ITS ---
Measurements Intervals [place] Rate: 102 P: 20 RI: 200 QRS: 36 QRSD: 153 T: -1 QT: 378 QTc: 492 Interpretive Statements SINUS TACHYCARDIA FREQUENT ATRIAL PREMATURE COMPLEXES BORDERLINE AV CONDUCTION DELAY RIGHT BUNDLE BRANCH BLOCK BASELINE ARTIFACT- I, II, III, AVR, AVL, AVF, V2, V4-V5 ABNORMAL ECG COMPARED TO ECG 02/28/2021 17:50:54 SINUS TACHYCARDIA NOW PRESENT Electronically Signed On 04-13-2022 15:29:31 CDT by Francisco Pérez D.O.
[2022-04-13 15:12] LABS: Basophils Percent Auto 0.4 % (0.2-1.2); Eosinophils Percent Auto 0.4 % (0-4.4); Hematocrit 39.6 % (42.0-52.0); Hemoglobin 13.4 g/dL (14.0-18.0); Immature Granulocyte Absolute 0.05 K/mm3 (0.00-0.031); Immature Granulocyte Percent A 0.5 % (0-0.5); Lymphocytes Absolute Auto 0.42 K/mm3 (0.9-3.2); Mean Corpuscular HGB Conc 33.8 g/dl (32-36); Mean Corpuscular Hemoglobin 35.5 pg (26-34); Mean Platelet Volume 8.8 fl (7.4-10.4); Monocytes Absolute Auto 1.2 K/mm3 (0.1-0.6); Neutrophils Absolute Auto 8.9 K/mm3 (1.3-6.7); Neutrophils Percent Auto 83.7 % (45.5-73.1); Platelet Count Result 199 k/mm3 (150-375); Red Blood Count 3.77 M/mm3 (4.6-6.20); Red Cell Distribution Width 12.7 % (11.5-14.5); White Blood Count 10.6 K/mm3 (4.5-10.0)
[2022-04-13 15:25] LABS: Alanine Aminotransferase 32 U/L (6-50); Albumin Level 4.2 g/dL (3.5-5.1); Alkaline Phosphatase 56 U/L (38-126); Anion Gap 10 mmol/L (8-16); Aspartate Amino Transferase 33 U/L (17-59); Bilirubin,Total 0.7 mg/dL (0.2-1.3); Blood Urea Nitrogen 20 mg/dL (9-20); Calcium 8.9 mg/dL (8.4-10.2); Carbon Dioxide 26 mmol/L (22-30); Chloride 101 mmol/L (98-107); Estimated CRCL calculation 53 ml/min; Estimated Glomerular Filt Rate 54; Glucose 134 mg/dL (65-110); Potassium 4.1 mmol/L (3.4-5.0); Sodium 137 mmol/L (137-145)
[2022-04-13 15:32] LABS: INR 1.2; Prothrombin Time 14.6 Seconds (11.1-14.7)
[2022-04-13 15:33] LABS: Partial Thromboplastin Time 28.6 SECONDS (22.3-36.8)
[2022-04-13 15:40] LABS: Lactic Acid Reflex 1.2 mmol/L (0.7-2.0)
[2022-04-13 15:45] LABS: Appearance Urine Slightly Cloudy (Clear); Bilirubin Urine Negative (Negative); Blood Urine 1+ (Negative); Color Urine Yellow (Yellow); Glucose Urine UA Negative (Negative); Ketones Urine Negative (Negative); Leukocyte Esterase Ur 1+ LEU/UL (Negative); Nitrate Urine Negative (Negative); Protein Urine 1+ mg/dL (Negative); Urobilinogen Urine 0.2 mg/dL (<2.0); pH Urine 5.5 (5.0-9.0)
[2022-04-13] MEDS: SODIUM CHLORIDE 0.9% IV 1,000 ML 999 ML IV CONT ×2 (15:52→15:53)
[2022-04-13 15:58] LABS: Add Urine Microscopic? YES; Bacteria Urine Trace /hpf; WBC Urine 51-75 /hpf
[2022-04-13 16:39] LABS: SARS-CoV-2 RNA PCR Negative
[2022-04-13] MEDS: KETOROLAC 15 MG/ML VIAL (*BKC) IV PUSH (16:44)
[2022-04-13] MEDS: cefTRIAXone 2 GM in SODIUM CHLORIDE 0.9% IV 100 ML 200 ML IVPB (16:47)
--- NOTE | 2022-04-13 20:35 | PC.NURSE ---
This patient, Shant Zaman, was admitted to IMU Room 232-01. Patient/family oriented to hospital policies and general routines including ID bracelet, bed and alarms, visiting hours, pain management, procedures, bathroom and other care routines, personal items, smoking policy, room service/diet, and visiting hours. Information on how to activate the Rapid Response Team has been discussed. Patient/Family are encouraged to report perceived risks to care and to ask questions if they do not understand what they are told or what they should do.
[2022-04-13] MEDS: SODIUM CHLORIDE 0.9% IV 1,000 ML 125 ML IV CONT (22:15)
--- NOTE | 2022-04-13 22:58 | PM.IMHP ---
H&P: HPI History of Present Illness Date/Time: 04/13/22 22:58 Chief Complaint: altered mental status Narrative: this is a 76-year-old male patient has a past history of prostate cancer, hypertension, rheumatoid arthritis and kidney stones. The patient presented to the emergency room with his family today and his family stated that the patient has been confused over the last several days. The patient stated that he is aware that he has been confused. This is happened in the past and the patient became septic. The T-max fever was 102 and the patient has been taking some Tylenol for that. He also complains of increased urinary frequency and lower back pain. The patient has had frequent UTIs and sees Dr. chao. Patient's white count was noted to be 10.6. H&H is 13.4 And39.6. MCV is 105. the patient was found to be positive for UTI. The patient has had a history of having Enterococcus species in his urine. It is sensitive to vancomycin and ampicillin. The patient was given ceftriaxone, vancomycin and IV fluids in the emergency room. He was also given Toradol for the discomfort. IV fluids were started on the patient. patient's heart rate was over 90 he was afebrile and had a mild leukocytosis he the patient meets Sears criteria. The patient's chest x-ray was read as cardiomegaly, mild pulmonary vascular prominence, suggesting possible mild congestive change. Minimal bilateral lung infiltrate and/or mild atelectasis The patient is being admitted to inpatient status on the date of service of 04/13/2022. Review of Systems Review of Systems: see HPI All systems reviewed & are unremarkable except as noted in HPI and below Constitutional: Constitutional: Reports as per HPI and Reports no additional constitutional complaints Eyes: Eyes: Reports as per HPI and Reports no additional eye complaints ENT: Reports system reviewed and no additional complaints, except as documented and Reports Normal hearing present Cardiovascular: Cardiovascular: Reports no additional cardiovascular complaints Respiratory: Respiratory: Reports no additional respiratory complaints and Reports no additional respiratory complaints Gastrointestinal: Gastrointestinal: Reports as per HPI and Reports no additional gastrointestinal complaints Musculoskeletal: Musculoskeletal: Reports no additional musculoskeletal complaints Integumentary/Breasts: Skin/Breast: Reports system reviewed and no additional complaints, except as docu and Reports as per HPI Neurologic: Reports system reviewed and no additional complaints, except as documented, Reports as per HPI and Reports Normal hearing present Psychiatric: Psychiatric: Reports no additional psychiatric complaints and Reports as per HPI Endocrine: Endocrine: Reports no additional endocrine complaints Hematologic/Lymphatic: Hematologic/Lymphatic: Reports no additional hematologic/lymphatic complaints Allergic/Immunologic: Allergic/Immunologic: Reports no additional allergic/immunologic complaints [facility] Past Medical History Medical History Bacteremia (~10/2019) UTI with bacteremia, CNSS not saprophyticus. Khoury palsy (~2018) Essential hypertension Glaucoma Gout Hypogonadism in male Uses testosterone gel. Kidney stones Osteoarthritis Overactive bladder Paroxysmal atrial fibrillation (~10/2019) associated with sepsis Pre-diabetes Hemoglobin A1c was 6.3% in April 2019. Prostate cancer Retinal vein occlusion of left eye Rheumatoid arthritis with rheumatoid factor of multiple sites without organ or systems involvement He has been methotrexate since being hospitalized with sepsis secondary to UTI in 10/2019, now on Plaquenil. Transient ischemic attack (~2014) Vitamin D deficiency Surgical History Surgical History History of appendectomy (~1958) History of left cataract surgery (~2009) Family
[2022-04-14] VITALS (44 sets, daily range): BP systolic 97–147; BP diastolic 46–85; PULSE 77–132; RESP 16–36; TEMP 36.9–38.7; O2SAT 93–100
[2022-04-14] MEDS: LATANOPROST 0.005% OP SOLN 2.5 ML BTL 1 DROP EACH EYE ×2 (00:16→20:46)
[2022-04-14] MEDS: ACETAMINOPHEN 325 MG TABLET 650 MG PO ×2 (01:38→23:38)
[2022-04-14] MEDS: LORazepam INJ (*CRX) 2 MG/ML VIAL 0.5 MG IV PUSH (02:17)
[2022-04-14 05:30] LABS: Basophils Percent Auto 0.3 % (0.2-1.2); Eosinophils Percent Auto 0.3 % (0-4.4); Hematocrit 34.1 % (42.0-52.0); Hemoglobin 11.3 g/dL (14.0-18.0); Immature Granulocyte Absolute 0.06 K/mm3 (0.00-0.031); Immature Granulocyte Percent A 0.6 % (0-0.5); Lymphocytes Absolute Auto 0.57 K/mm3 (0.9-3.2); Lymphocytes Percent Auto 5.8 % (18.3-44.2); Mean Corpuscular HGB Conc 33.1 g/dl (32-36); Mean Corpuscular Hemoglobin 35.3 pg (26-34); Mean Corpuscular Volume 106.6 fl (80-100); Mean Platelet Volume 8.6 fl (7.4-10.4); Monocytes Percent Auto 9.7 % (2.6-8.5); Neutrophils Absolute Auto 8.2 K/mm3 (1.3-6.7); Neutrophils Percent Auto 83.3 % (45.5-73.1); Platelet Count Result 170 k/mm3 (150-375); Red Cell Distribution Width 12.6 % (11.5-14.5); White Blood Count 9.8 K/mm3 (4.5-10.0)
[2022-04-14 05:41] LABS: INR 1.4; Prothrombin Time 16.4 Seconds (11.1-14.7)
[2022-04-14 05:42] LABS: Lactic Acid Reflex 0.9 mmol/L (0.7-2.0)
[2022-04-14 05:50] LABS: Alanine Aminotransferase 26 U/L (6-50); Albumin Level 3.2 g/dL (3.5-5.1); Alkaline Phosphatase 41 U/L (38-126); Anion Gap 6 mmol/L (8-16); Aspartate Amino Transferase 26 U/L (17-59); Bilirubin,Total 0.6 mg/dL (0.2-1.3); Blood Urea Nitrogen 16 mg/dL (9-20); Calcium 7.9 mg/dL (8.4-10.2); Carbon Dioxide 25 mmol/L (22-30); Chloride 107 mmol/L (98-107); Estimated CRCL calculation 54 ml/min; Estimated Glomerular Filt Rate 54; Glucose 150 mg/dL (65-110); Magnesium 1.8 mg/dL (1.6-2.3); Potassium 4.2 mmol/L (3.4-5.0); Sodium 138 mmol/L (137-145)
--- NOTE | 2022-04-14 06:01 | ADMGEN ---
This patient, Shant Zaman, was admitted to IMU Room 232-01 @ 2015 on 04/13/2022. Patient/family oriented to hospital policies and general routines including ID bracelet, bed and alarms, visiting hours, pain management, procedures, bathroom and other care routines, personal items, smoking policy, room service/diet, and visiting hours. Information on how to activate the Rapid Response Team has been discussed. Patient/Family are encouraged to report perceived risks to care and to ask questions if they do not understand what they are told or what they should do.
[2022-04-14 06:06] LABS: CRP 14.9 mg/dL (<1.0)
[2022-04-14 06:27] LABS: Thyroid Stimulating Hormone Reflex 0.406 uIU/mL (0.465-4.68)
[2022-04-14 07:47] LABS: Free T4 Free Thyroxine Reflex 1.24 ng/dL (0.78-2.19)
[2022-04-14] MEDS: METOPROLOL TARTRATE 50 MG TAB PO ×2 (09:23→20:46)
[2022-04-14] MEDS: TAMSULOSIN HCL 0.4 MG CAPSULE PO (09:24)
[2022-04-14] MEDS: HYDROXYCHLOROQUINE SULFATE 200 MG TABLET 400 MG PO (09:25)
[2022-04-14] MEDS: lisinopriL 10 MG TABLET PO (09:32)
[2022-04-14] MEDS: BRIMONIDINE TARTRATE 0.2% OP SOLN 5 ML BTL 1 DROP EACH EYE ×2 (09:32→18:21)
[2022-04-14] MEDS: DICLOFENAC SODIUM 1% 100 GM GEL (*BKC) 1 APPLIC TOPICAL ×3 (09:33→18:20)
[2022-04-14] MEDS: TIMOLOL MALEATE 0.5% OP SOLN 5 ML BOTTLE 1 DROP EACH EYE ×2 (09:35→18:22)
[2022-04-14] MEDS: DORZOLAMIDE HCL 2% OPHTH DROPS 1 DROP LEFT EYE ×3 (09:52→18:21)
--- NOTE | 2022-04-14 10:09 | PM.IMPN ---
Progress Note: A&P Assessment and Plan (1) Sepsis: Code(s): A41.9 - Sepsis, unspecified organism Status: Acute Assessment and Plan: - patient has mild leukocytosis - mild tachycardia - fever - blood cultures and urine cultures are pending. (2) Acute UTI (urinary tract infection): Code(s): N39.0 - Urinary tract infection, site not specified Status: Acute Assessment and Plan: - Patient was given Rocephin and Vanco in the emergency room. - will continue IV antibiotics - await cultures - altered mental status and confusion much improved - I did consult Urology. (3) Essential hypertension: Code(s): I10 - Essential (primary) hypertension Status: Chronic Assessment and Plan: - Continue with lisinopril and monitor BMP - continue with metoprolol (4) Rheumatoid arthritis with rheumatoid factor of multiple sites without organ or systems involvement: Code(s): M05.79 - Rheumatoid arthritis with rheumatoid factor of multiple sites without organ or systems involvement Status: Chronic Assessment and Plan: - continue with hydroxy chloroquine (5) Glaucoma: Qualifiers: Glaucoma type: unspecified Laterality: unspecified laterality Qualified Code(s): H40.9 - Unspecified glaucoma Code(s): H40.9 - Unspecified glaucoma Status: Acute Assessment and Plan: - continue with home eye drops (6) Prostate cancer: Code(s): C61 - Malignant neoplasm of prostate Status: Acute Assessment and Plan: - the patient stated that he was treated with radiation. (7) Pulmonary embolism: Qualifiers: Pulmonary embolism type: unspecified Chronicity: acute Acute cor pulmonale presence: without acute cor pulmonale Qualified Code(s): I26.99 - Other pulmonary embolism without acute cor pulmonale Code(s): I26.99 - Other pulmonary embolism without acute cor pulmonale Status: Acute Assessment and Plan: - No longer on anticoagulation. - He has had a history of hematuria in the past Subjective Date/time seen: 04/14/22 10:09 patient denies any new complaints, feeling better, does not appear to to be confused Exam Const: General: cooperative, healthy appearing, comfortable, no acute distress, well developed, alert, awake and Physically active Nutritional Appearance: well nourished and overweight Orientation/consciousness: oriented to person and oriented to place Limitations: no limitations HENMT: Head: normal to inspection, No palpable skull fracture present, normocephalic, atraumatic and abrasion Ears: hearing grossly normal bilaterally and external ears normal General nose exam: Normal external nose present and Normal nares present Mouth: Yes Normal oral and palatal mucosa present Throat: posterior oropharynx normal Eyes: General: appearance normal, both eyes and all related structures Alignment and Position: alignment normal Periorbital: periorbital findings normal Eyelids: eyelids normal Sclera: sclerae normal Pupils: Equal, round and reactive pupils present EOM: EOMs intact bilaterally Neck: Neck: normal visual inspection, full ROM, no lymphadenopathy, trachea midline and supple Chest: Chest palpation & inspection: normal inspection of the chest Resp: Effort & Inspection: normal respiratory effort Cardio: Palpation: normal PMI Rate: tachycardic Rhythm: regular rhythm Heart sounds: S1 normal heart sound present and S2 normal heart sound present Peripheral pulses: Peripheral pulses 2+ throughout GI: Inspection: normal to inspection Auscultation: normal bowel sounds Rectal Exam: deferred Back/Spine/Pelvis: Cervical Spine: cervical ROM normal Skin: General skin exam: normal color Lesions: no lesions Rashes: no rashes Trauma: no lacerations or abrasions Wounds: no wounds Hair: male pattern alopecia Nails: normal Neuro: General: oriented to person and oriented to place Cranial ne
--- NOTE | 2022-04-14 12:53 | WPDURCON ---
Assessment and Plan Assessment and plan (1) Sepsis: Code(s): A41.9 - Sepsis, unspecified organism Status: Acute Assessment and Plan: Continue IV antibiotics, tailor to culture results. Likely secondary to obstructing stones in the left ureter noted on CT today. 14mm in the left UPJ and persistent left distal 3mm ureteral stone. (2) Left ureteral stone: Code(s): N20.1 - Calculus of ureter Status: Acute Plan Keep NPO. Obtain Consent: Cystoscopy, left ureteral stent placement, left retrograde pyelogram. Urology Consult Note HPI Date Seen: 04/14/22 Time Seen: 12:53 Requesting Physician: Funmilayo Khoury MD Primary Care Provider: Campbell Cho MD Consult Narrative Reason for consult: Sepsis/Chronic UTI/Ureteral Stone Narrative: Shant Zaman is a 76 year old male who presented to the ER yesterday for acute confusion and onset of fever, back pain, generalized abdominal pain and urinary frequency. He has a history of chronic UTI's and was seen in the ER last month for similar symptoms which resulted in a CT on 03/02/22 that showed a 14mm non obstructive left renal stone as well as a 3mm distal ureteral stone without hydronephrosis. His WBC was 10.6 on admission and is now 9.8 today. His creatinine is 1.30. His UA is suggestive of a UTI and urine/blood cultures are pending at this time. He is currently on IV Ceftriaxone and Vancomycin and admitted to the IMU for evaluation of his Sepsis. He is a patient of Dr. Whitlock who was seen in the office last month in preparation of a left ESWL and cystoscopy d/t hematuria in the OR as an outpatient, however it was not scheduled by the patient for unknown reasons. A repeat CT scan was done today showing interval movement of the 14mm left renal stone into the left UPJ causing moderate hydronephrosis as well as the persistent 3mm left distal ureteral stone. Both are visible on KUB today. Review of Systems Constitutional: Constitutional: Reports fatigue and Reports weakness Cardiovascular: Cardiovascular: Denies chest pain Respiratory: Respiratory: Reports no additional respiratory complaints Gastrointestinal: Gastrointestinal: Reports abdominal pain, Denies nausea and Denies vomiting Genitourinary: Genitourinary: Reports hematuria, Reports dysuria, Reports flank pain, Reports urinary frequency and Reports urinary urgency [facility] Past Medical History Medical History Bacteremia (~10/2019) UTI with bacteremia, CNSS not saprophyticus. Kohury palsy (~2018) Essential hypertension Glaucoma Gout Hypogonadism in male Uses testosterone gel. Kidney stones Osteoarthritis Overactive bladder Paroxysmal atrial fibrillation (~10/2019) associated with sepsis Pre-diabetes Hemoglobin A1c was 6.3% in April 2019. Prostate cancer Retinal vein occlusion of left eye Rheumatoid arthritis with rheumatoid factor of multiple sites without organ or systems involvement He has been methotrexate since being hospitalized with sepsis secondary to UTI in 10/2019, now on Plaquenil. Transient ischemic attack (~2014) Vitamin D deficiency Surgical History Surgical History History of appendectomy (~1957) History of left cataract surgery (~2009) Family History Family History Other Acute myocardial infarction Diabetes mellitus Heart disease Hypertension Social History Social History Social History: The patient lives in [place] with his . They have 3 sons and 1 daughter. His , Vandana, is his emergency contact and he wishes to be a full code. He smoked up to 3 packs of cigarettes per day and quit 1995. No alcohol or drug abuse. 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
--- NOTE | 2022-04-14 15:28 | WPDANESEPPF ---
Anes - Initial Pre Proc Eval Procedure: Operation Date: 04/14/22 16:00 Proposed Procedures p Cystoscopy, Left Retrograde Pyelogram, Left Stent Placement - Volodymyr Blackmon MD Date/Time: 04/14/22 15:28 Surgeon: Funmilayo Khoury MD Pre Op Diagnosis: Sepsis Patient Data Age: 76 Gender: M Height: 1.78 m Weight: 115 kg Last Vital Signs Temp 37.2 C 04/14/22 12:00 Pulse 78 04/14/22 12:00 Resp 24 H 04/14/22 12:00 BP 136/74 04/14/22 12:00 Pulse Ox 94 04/14/22 12:00 O2 Del Method Room Air 04/14/22 08:00 Allergies Allergy/AdvReac Type Severity Reaction Status Date / Time No Known Drug Allergies Allergy Mild unknown Verified 04/13/22 14:28 Home Medications Medication Instructions Recorded Confirmed Type brimonidine 0.2 %-timolol 0.5 % 1 drp EACH EYE BID 03/02/22 04/13/22 History eye drops (Combigan) diclofenac sodium 1 % topical gel 1 ea topical QID 03/02/22 04/13/22 History (Arthritis Pain (diclofenac)) dorzolamide 2 % eye drops 1 drp LEFT EYE TID 03/02/22 04/13/22 History hydroxychloroquine 200 mg tablet 400 mg PO DAILY 03/02/22 04/13/22 History lisinopril 10 mg tablet 10 mg PO DAILY 03/02/22 04/13/22 History oxybutynin chloride 10 mg 10 mg PO DAILY 03/02/22 04/13/22 History tablet,extended release 24 hr tamsulosin 0.4 mg capsule 0.4 mg PO DAILY 03/02/22 04/13/22 History travoprost 0.004 % eye drops 1 drp EACH EYE HS 03/02/22 04/13/22 History metoprolol tartrate 50 mg tablet 50 mg PO BID #180 tabs 03/06/22 04/13/22 Rx Laboratory Tests 04/13/22 04/13/22 04/13/22 15:07 15:07 15:26 WBC RBC Hgb Hct MCV MCH MCHC RDW Plt Count MPV Immature Gran % (Auto) Neut % (Auto) Lymph % (Auto) [place] % (Auto) Eos % (Auto) Baso % (Auto) Lymph # (Auto) [place] # (Auto) Eos # (Auto) Baso # (Auto) Abs Immat Gran (auto) Absolute Neuts (auto) Absolute Nucleated RBC Nucleated RBC % PT 14.6 Seconds Seconds (11.1-14.7) INR 1.2 APTT 28.6 SECONDS SECONDS (22.3-36.8) Sodium Potassium Chloride Carbon Dioxide Anion Gap BUN Creatinine Estim Creat Clear Calc Estimated GFR Glucose Lactic Acid 1.2 mmol/L mmol/L (0.7-2.0) Calcium Magnesium Ferritin Total Bilirubin AST ALT Alkaline Phosphatase C-Reactive Protein Total Protein Albumin TSH (Reflex) Free T4 Total T3 Urine Color Yellow (Yellow) Urine Appearance Slightly cloudy (Clear) Urine pH 5.5 (5.0-9.0) Ur Specific Sparkman 1.020 (1.001-1.035) Urine Protein 1+ mg/dL H mg/dL (Negative) Urine Glucose (UA) Negative mg/dL mg/dL (Negative) Urine Ketones Negative mg/dL mg/dL (Negative) Ur Blood (Man) 1+ H (Negative) Urine Nitrate Negative (Negative) Urine Bilirubin Negative (Negative) Urine Urobilinogen 0.2 mg/dL mg/dL (<2.0) Leukocyte Esterase Rfl 1+ ARASH/UL H ARASH/UL (Negative) Urine RBC 3-5 /hpf H /hpf (0-2) Urine WBC 51-75 /hpf H /hpf Urine Bacteria Trace /hpf /hpf SARS-CoV-2 RNA (RT-PCR) 04/13/22 04/14/22 04/14/22 15:51 05:23 05:23 WBC 9.8 K/mm3 K/mm3 (4.5-10.0) RBC 3.20 M/mm3 L M/mm3 (4.6-6.20) Hgb 11.3 g/dL L g/dL (14.0-18.0) Hct 34.1 % L % (42.0-52.0) MCV 106.6 fl H fl (80-100) MC
[2022-04-14] MEDS: LACTATED RINGERS 1,000 ML 30 ML IV CONT (15:45)
--- NOTE | 2022-04-14 16:21 | WPDHPUPDATE1 ---
History and Physical Update Update Date/Time: 04/14/22 16:21 History and Physical has been reviewed, including an updated exam of the patient. There are NO changes in the patient's condition. Risks, benefits, and alternatives have been discussed and questions answered. Patient agrees to proceed with procedure.
[2022-04-14] MEDS: LIDOCAINE HCL 2% GEL UROJET 10 ML PKG MUCOUS MEM (16:41)
--- NOTE | 2022-04-14 16:44 | W.PM.PROC2 ---
Procedure Note - Detailed Date of Procedure 04/14/22 Pre-op Diagnosis Left ureteral stone, obstructive left pyelonephritis Post-op Diagnosis Same Procedure Performed Cystoscopy, left retrograde pyelography and left ureteral stent placement Surgeon Pablo Walker MD Description of Procedure Patient brought the operative suite was prepped draped in routine sterile fashion while in a dorsal lithotomy position. 2% xylocaine jelly was introduced intraurethrally and general LMA anesthetic is administered per the anesthesia department. Nineteen F rigid cystoscope was placed in his bladder. He has no urethral strictures and moderate obstruction of the prostatic urethra secondary to BPH. His bladder was densely trabeculated and appears thick walled. He has a single orthotopic ureteral orifice. An 8 F bulb-tipped catheter was used to obtain a left retrograde pyelogram it outlined the collecting system for placement of a stent. 0.035 in glidewire was advanced in left renal pelvis and a 4.8 F variable length stent its position with the proximal coil in the collecting system and distal coil in the bladder. Scopes and wires removed and a 16 F urethral catheter was placed to drainage. Urine Output 200 Drains Yes Packing No Pathology None sent Complications No immediate complications Condition Stable Disposition PACU
[2022-04-14 17:29] LABS: Glucose Point of Care 123 mg/dl (65-105)
[2022-04-14] MEDS: FUROSEMIDE INJ 40 MG/4 ML VIAL 20 MG IV PUSH (22:30)
[2022-04-14] MEDS: ALBUTEROL SULFATE NEB 2.5 MG/3 ML INH INHALATION (22:46)
[2022-04-14] MEDS: IPRATROPIUM BR 0.02% INH SOLN 0.5 MG/2.5 ML VIAL INHALATION (22:46)
[2022-04-15] VITALS (44 sets, daily range): BP systolic 108–157; BP diastolic 62–83; PULSE 70–127; RESP 20–24; TEMP 36.4–37.6; O2SAT 94–99
[2022-04-15 05:02] LABS: Basophils Percent Auto 0.4 % (0.2-1.2); Eosinophils Absolute Auto 0.2 K/mm3 (0-0.3); Eosinophils Percent Auto 1.9 % (0-4.4); Hematocrit 35.6 % (42.0-52.0); Hemoglobin 11.8 g/dL (14.0-18.0); Immature Granulocyte Absolute 0.04 K/mm3 (0.00-0.031); Immature Granulocyte Percent A 0.4 % (0-0.5); Lymphocytes Absolute Auto 0.49 K/mm3 (0.9-3.2); Lymphocytes Percent Auto 5.3 % (18.3-44.2); Mean Corpuscular HGB Conc 33.1 g/dl (32-36); Mean Corpuscular Hemoglobin 35.4 pg (26-34); Mean Corpuscular Volume 106.9 fl (80-100); Mean Platelet Volume 8.9 fl (7.4-10.4); Monocytes Absolute Auto 0.9 K/mm3 (0.1-0.6); Monocytes Percent Auto 9.9 % (2.6-8.5); Neutrophils Absolute Auto 7.5 K/mm3 (1.3-6.7); Neutrophils Percent Auto 82.1 % (45.5-73.1); Platelet Count Result 185 k/mm3 (150-375); Red Blood Count 3.33 M/mm3 (4.6-6.20); Red Cell Distribution Width 12.5 % (11.5-14.5); White Blood Count 9.2 K/mm3 (4.5-10.0)
[2022-04-15 05:35] LABS: Macrocytosis 1+ (NORMAL); Platelet Estimate Adequate (Adequate); Schistocytes None Seen (NORMAL)
[2022-04-15 06:22] LABS: Anion Gap 12 mmol/L (8-16); Blood Urea Nitrogen 12 mg/dL (9-20); Carbon Dioxide 28 mmol/L (22-30); Chloride 100 mmol/L (98-107); Estimated CRCL calculation 63 ml/min; Estimated Glomerular Filt Rate > 60; Glucose 158 mg/dL (65-110); Potassium 3.2 mmol/L (3.4-5.0); Sodium 140 mmol/L (137-145)
[2022-04-15] MEDS: DICLOFENAC SODIUM 1% 100 GM GEL (*BKC) 1 APPLIC TOPICAL ×3 (08:43→18:05)
[2022-04-15] MEDS: BRIMONIDINE TARTRATE 0.2% OP SOLN 5 ML BTL 1 DROP EACH EYE ×2 (08:44→18:06)
[2022-04-15] MEDS: DORZOLAMIDE HCL 2% OPHTH DROPS 1 DROP LEFT EYE ×3 (08:44→18:05)
[2022-04-15] MEDS: TIMOLOL MALEATE 0.5% OP SOLN 5 ML BOTTLE 1 DROP EACH EYE ×2 (08:44→18:06)
[2022-04-15] MEDS: HYDROXYCHLOROQUINE SULFATE 200 MG TABLET 400 MG PO (08:44)
[2022-04-15] MEDS: METOPROLOL TARTRATE 50 MG TAB PO ×2 (08:45→20:30)
[2022-04-15] MEDS: lisinopriL 10 MG TABLET PO (08:45)
[2022-04-15] MEDS: TAMSULOSIN HCL 0.4 MG CAPSULE PO (08:45)
[2022-04-15] MEDS: POTASSIUM CHLORIDE 20 MEQ PACKET (FOR LIQUID) 40 MEQ PO (08:52)
--- NOTE | 2022-04-15 10:46 | PM.IMPN ---
Progress Note: A&P Assessment and Plan (1) Sepsis: Code(s): A41.9 - Sepsis, unspecified organism Status: Acute Assessment and Plan: resolved (2) Acute UTI (urinary tract infection): Code(s): N39.0 - Urinary tract infection, site not specified Status: Acute Assessment and Plan: continue IV antibiotics. Ureteral stone with status post stent placement. Continue De Leon. Manage per urology (3) Essential hypertension: Code(s): I10 - Essential (primary) hypertension Status: Chronic Assessment and Plan: - Continue with lisinopril and monitor BMP - continue with metoprolol (4) Rheumatoid arthritis with rheumatoid factor of multiple sites without organ or systems involvement: Code(s): M05.79 - Rheumatoid arthritis with rheumatoid factor of multiple sites without organ or systems involvement Status: Chronic Assessment and Plan: - continue with hydroxy chloroquine (5) Glaucoma: Qualifiers: Glaucoma type: unspecified Laterality: unspecified laterality Qualified Code(s): H40.9 - Unspecified glaucoma Code(s): H40.9 - Unspecified glaucoma Status: Acute Assessment and Plan: - continue with home eye drops (6) Prostate cancer: Code(s): C61 - Malignant neoplasm of prostate Status: Acute Assessment and Plan: - the patient stated that he was treated with radiation. (7) Pulmonary embolism: Qualifiers: Pulmonary embolism type: unspecified Chronicity: acute Acute cor pulmonale presence: without acute cor pulmonale Qualified Code(s): I26.99 - Other pulmonary embolism without acute cor pulmonale Code(s): I26.99 - Other pulmonary embolism without acute cor pulmonale Status: Acute Assessment and Plan: - No longer on anticoagulation. - He has had a history of hematuria in the past Subjective Date/time seen: 04/15/22 10:46 no complaints Exam Const: General: cooperative, healthy appearing, comfortable, no acute distress, well developed, alert, awake and Physically active Nutritional Appearance: well nourished and overweight Orientation/consciousness: oriented to person and oriented to place Limitations: no limitations HENMT: Head: normal to inspection, No palpable skull fracture present, normocephalic, atraumatic and abrasion Ears: hearing grossly normal bilaterally and external ears normal General nose exam: Normal external nose present and Normal nares present Mouth: Yes Normal oral and palatal mucosa present Throat: posterior oropharynx normal Eyes: General: appearance normal, both eyes and all related structures Alignment and Position: alignment normal Periorbital: periorbital findings normal Eyelids: eyelids normal Sclera: sclerae normal Pupils: Equal, round and reactive pupils present EOM: EOMs intact bilaterally Neck: Neck: normal visual inspection, full ROM, no lymphadenopathy, trachea midline and supple Chest: Chest palpation & inspection: normal inspection of the chest Resp: Effort & Inspection: normal respiratory effort Cardio: Palpation: normal PMI Rate: tachycardic Rhythm: regular rhythm Heart sounds: S1 normal heart sound present and S2 normal heart sound present Peripheral pulses: Peripheral pulses 2+ throughout GI: Inspection: normal to inspection Auscultation: normal bowel sounds Rectal Exam: deferred Back/Spine/Pelvis: Cervical Spine: cervical ROM normal Skin: General skin exam: normal color Lesions: no lesions Rashes: no rashes Trauma: no lacerations or abrasions Wounds: no wounds Hair: male pattern alopecia Nails: normal Neuro: General: oriented to person and oriented to place Cranial nerves: Yes Equal, round and reactive pupils present and Yes Normal hearing present Cognition (Neuro): abnormal cognition ( forgetful at times) Speech: normal speech Motor exam (neuro): 5/5 motor strength present throughout Sensory Exam: normal
[2022-04-15] MEDS: LATANOPROST 0.005% OP SOLN 2.5 ML BTL 1 DROP EACH EYE (20:31)
[2022-04-16] VITALS (14 sets, daily range): BP systolic 104–141; BP diastolic 66–105; PULSE 70–103; RESP 16–20; TEMP 36.3–37.7; O2SAT 94–98
[2022-04-16 07:23] LABS: Anion Gap 10 mmol/L (8-16); Blood Urea Nitrogen 14 mg/dL (9-20); Calcium 8.4 mg/dL (8.4-10.2); Carbon Dioxide 25 mmol/L (22-30); Chloride 104 mmol/L (98-107); Estimated CRCL calculation 70 ml/min; Estimated Glomerular Filt Rate > 60; Glucose 125 mg/dL (65-110); Potassium 3.5 mmol/L (3.4-5.0); Sodium 139 mmol/L (137-145)
[2022-04-16] MEDS: TIMOLOL MALEATE 0.5% OP SOLN 5 ML BOTTLE 1 DROP EACH EYE ×2 (08:55→16:55)
[2022-04-16] MEDS: DORZOLAMIDE HCL 2% OPHTH DROPS 1 DROP LEFT EYE ×2 (08:56→16:55)
[2022-04-16] MEDS: HYDROXYCHLOROQUINE SULFATE 200 MG TABLET 400 MG PO (08:56)
[2022-04-16] MEDS: DICLOFENAC SODIUM 1% 100 GM GEL (*BKC) 1 APPLIC TOPICAL (08:56)
[2022-04-16] MEDS: BRIMONIDINE TARTRATE 0.2% OP SOLN 5 ML BTL 1 DROP EACH EYE ×2 (08:56→16:55)
[2022-04-16] MEDS: lisinopriL 10 MG TABLET PO (08:57)
[2022-04-16] MEDS: TAMSULOSIN HCL 0.4 MG CAPSULE PO (08:57)
[2022-04-16] MEDS: METOPROLOL TARTRATE 50 MG TAB PO ×2 (08:57→21:25)
--- NOTE | 2022-04-16 14:17 | P.PNIM_ITS ---
Progress Note: A&P Assessment and Plan (1) Sepsis: Code(s): A41.9 - Sepsis, unspecified organism Status: Acute Assessment and Plan: resolved (2) Acute UTI (urinary tract infection): Code(s): N39.0 - Urinary tract infection, site not specified Status: Acute Assessment and Plan: continue IV antibiotics. Ureteral stone with status post stent placement. Continue De Leon. Manage per urology (3) Essential hypertension: Code(s): I10 - Essential (primary) hypertension Status: Chronic Assessment and Plan: - Continue with lisinopril and monitor BMP - continue with metoprolol (4) Rheumatoid arthritis with rheumatoid factor of multiple sites without organ or systems involvement: Code(s): M05.79 - Rheumatoid arthritis with rheumatoid factor of multiple sites without organ or systems involvement Status: Chronic Assessment and Plan: - continue with hydroxy chloroquine (5) Glaucoma: Qualifiers: Glaucoma type: unspecified Laterality: unspecified laterality Qualified Code(s): H40.9 - Unspecified glaucoma Code(s): H40.9 - Unspecified glaucoma Status: Acute Assessment and Plan: - continue with home eye drops (6) Prostate cancer: Code(s): C61 - Malignant neoplasm of prostate Status: Acute Assessment and Plan: - the patient stated that he was treated with radiation. (7) Pulmonary embolism: Qualifiers: Pulmonary embolism type: unspecified Chronicity: acute Acute cor pulmonale presence: without acute cor pulmonale Qualified Code(s): I26.99 - Other pulmonary embolism without acute cor pulmonale Code(s): I26.99 - Other pulmonary embolism without acute cor pulmonale Status: Acute Assessment and Plan: - No longer on anticoagulation. - He has had a history of hematuria in the past Plan will have pt and ot evaluate paitent Subjective Date/time seen: 04/16/22 14:18 no complaints Exam Const: General: cooperative, healthy appearing, comfortable, no acute distress, well developed, alert, awake and Physically active Nutritional Appearance: well nourished and overweight Orientation/consciousness: oriented to person and oriented to place Limitations: no limitations HENMT: Head: normal to inspection, No palpable skull fracture present, normocephalic, atraumatic and abrasion Ears: hearing grossly normal bilaterally and external ears normal General nose exam: Normal external nose present and Normal nares present Mouth: Yes Normal oral and palatal mucosa present Throat: posterior oropharynx normal Eyes: General: appearance normal, both eyes and all related structures Alignment and Position: alignment normal Periorbital: periorbital findings normal Eyelids: eyelids normal Sclera: sclerae normal Pupils: Equal, round and reactive pupils present EOM: EOMs intact bilaterally Neck: Neck: normal visual inspection, full ROM, no lymphadenopathy, trachea midline and supple Chest: Chest palpation & inspection: normal inspection of the chest Resp: Effort & Inspection: normal respiratory effort Cardio: Palpation: normal PMI Rate: tachycardic Rhythm: regular rhythm Heart sounds: S1 normal heart sound present and S2 normal heart sound present Peripheral pulses: Peripheral pulses 2+ throughout GI: Inspection: normal to inspection Auscultation: normal bowel sounds Rectal Exam: deferred Back/Spine/Pelvis: Cervical Spine: cervic
--- NOTE | 2022-04-16 14:55 | PC.NURSE ---
Transfer to medical: Patient transfered to medical. He is alert and oriented but with short term memory lapses. Denies chest pain or shortness of breath. Lungs are clear in the appecies but deminished bibasilarly. He last bowel movement today at 1400. Skin is intact with some slight pitting edema to left lower leg versus right. He states that this discrepancy is baseline.
[2022-04-16] MEDS: LATANOPROST 0.005% OP SOLN 2.5 ML BTL 1 DROP EACH EYE (21:25)
[2022-04-16] MEDS: ACETAMINOPHEN 325 MG TABLET 650 MG PO (21:27)
[2022-04-17] VITALS: BP 137/82; PULSE 97; RESP 20; TEMP 36.8; O2SAT 96
[2022-04-17] MEDS: ACETAMINOPHEN 325 MG TABLET 650 MG PO (01:33)
[2022-04-17] MEDS: traZODone HCL 50 MG TABLET PO (01:59)
[2022-04-17 03:11] LABS: Estimated CRCL calculation 64 ml/min; Estimated Glomerular Filt Rate > 60
[2022-04-17 03:58] LABS: Vancomycin Trough < 5.0 ug/mL (10.0-20.0)
[2022-04-17 04:00] VITALS: BP 135/51; PULSE 66; RESP 20; TEMP 36.6; O2SAT 95
[2022-04-17 08:00] VITALS: BP 153/74; PULSE 80; RESP 18; TEMP 36.5; O2SAT 96
[2022-04-17] MEDS: BRIMONIDINE TARTRATE 0.2% OP SOLN 5 ML BTL 1 DROP EACH EYE (08:25)
[2022-04-17] MEDS: DICLOFENAC SODIUM 1% 100 GM GEL (*BKC) 1 APPLIC TOPICAL ×2 (08:25→12:35)
[2022-04-17] MEDS: DORZOLAMIDE HCL 2% OPHTH DROPS 1 DROP LEFT EYE ×2 (08:25→12:35)
[2022-04-17] MEDS: HYDROXYCHLOROQUINE SULFATE 200 MG TABLET 400 MG PO (08:25)
[2022-04-17] MEDS: TAMSULOSIN HCL 0.4 MG CAPSULE PO (08:26)
[2022-04-17 08:35] VITALS: PULSE 60
[2022-04-17] MEDS: lisinopriL 10 MG TABLET PO (08:35)
[2022-04-17] MEDS: METOPROLOL TARTRATE 50 MG TAB PO (08:35)
[2022-04-17] MEDS: TIMOLOL MALEATE 0.5% OP SOLN 5 ML BOTTLE 1 DROP EACH EYE (08:36)
--- NOTE | 2022-04-17 10:41 | PM.DS ---
DS: Admitting Diagnosis Discharge Date April 17, 2022 Admitting Diagnosis ureteral stone DS: Discharge Diagnosis Discharge Diagnosis (1) Sepsis: Code(s): A41.9 - Sepsis, unspecified organism Status: Acute (2) Acute UTI (urinary tract infection): Code(s): N39.0 - Urinary tract infection, site not specified Status: Acute (3) Essential hypertension: Code(s): I10 - Essential (primary) hypertension Status: Chronic (4) Rheumatoid arthritis with rheumatoid factor of multiple sites without organ or systems involvement: Code(s): M05.79 - Rheumatoid arthritis with rheumatoid factor of multiple sites without organ or systems involvement Status: Chronic (5) Glaucoma: Qualifiers: Glaucoma type: unspecified Laterality: unspecified laterality Qualified Code(s): H40.9 - Unspecified glaucoma Code(s): H40.9 - Unspecified glaucoma Status: Acute (6) Prostate cancer: Code(s): C61 - Malignant neoplasm of prostate Status: Acute (7) Pulmonary embolism: Qualifiers: Pulmonary embolism type: unspecified Chronicity: acute Acute cor pulmonale presence: without acute cor pulmonale Qualified Code(s): I26.99 - Other pulmonary embolism without acute cor pulmonale Code(s): I26.99 - Other pulmonary embolism without acute cor pulmonale Status: Acute DS: Summary Hospital Course Hospital Course: patient is a 76-year-old male who came in with a ureteral stone and possibly UTI but is cultures were ultimately negative. Urology was consult today and evaluated the patient and ultimately he had a stent placement. Rocephin was originally given to the patient however cultures were negative this will be stopped prior to discharge. Vitals are otherwise stable he was able to work with physical therapy and walked down the hyatt he was a little bit unsteady with his gait so home health was recommended will be ordered on discharge otherwise patient is stable and can be discharged to follow-up with urology he will likely need lithotripsy. Time Spent with Patient Time attestation: Total time spent providing and/or coordinating discharge services: Exam Narrative: General: alert and oriented Psych: appropriate mood nad affect Eyes: PERRLA Neck: Trachea midline, no new lesions Skin: no changes Lungs: CTA Cardiac: Normal S1,S2, no MGR ABD: soft, nd, nt, nbs Ext: no new lesions, no cce Vasc: Pulses intact DS: Data Data Completed and Pending Labs on day of discharge: Labs from last 24 hours 04/17/22 04/17/22 02:57 02:57 Creatinine 1.10 Estim Creat Clear Calc 64 Estimated GFR > 60 Vancomycin Trough < 5.0 L Preliminary micro results at discharge 04/13/22 15:51 Blood Culture - Preliminary Blood 04/13/22 15:51 Blood Culture - Preliminary Blood Discharge Plan Discharge Attending physician on discharge: Shant Matt Consulting providers: Volodymyr Blackmon Discharging Clinician: Shant Matt Patient Disposition: Home Health Service Activity: no preference Diet: as tolerated Discharge Instructions: per care coordination, [facility] [facility] arranged for RN, PT/OT evaluations and treatment. [facility] can be reached at [phone]. They will contact you for first visit arrangements. RN, please fax discharge instructions to [phone] once complete. Thank you. Patient Instructions: Antibiotic Form, Pain Management (DC), Sepsis (GEN) Stand Alone Forms: General Discharge Information Follow-up/Referrals: Bubba Cho MD [Primary Care Provider] - Discharge Medications: Continued oxybutynin chloride 10 mg tablet extended release 24hr 10 mg PO DAILY travoprost 0.004 % drops 1 drp EACH EYE HS tamsulosin 0.4 mg capsule 0.4 mg PO DAILY lisinopril 10 mg tablet 10 mg PO DAILY hydroxychloroquine 200 mg tablet 400 mg PO SAMUEL
[2022-04-17 12:00] VITALS: BP 136/87; PULSE 82; RESP 18; TEMP 36.6; O2SAT 96
--- NOTE | 2022-04-17 12:16 | WPDUROPN2 ---
Progress Note: A&P Assessment and Plan (1) Left ureteral stone: Code(s): N20.1 - Calculus of ureter Status: Acute Assessment and Plan: left ureteral stent in place and patient is tolerating well creatinine is stable at 1.10 Will plan to schedule an outpatient left ESWL in the next two weeks with DR. Walker. No further surgical plans at this time. Ok to remove fleming and discharge home when able to urinate. (2) Acute UTI (urinary tract infection): Code(s): N39.0 - Urinary tract infection, site not specified Status: Acute Assessment and Plan: Urine culture negative, urine is likely dirty d/t obstructive stone. Dr. Walker started him on suppressive antibiotics, which he will remain on until after his stone has confirmed passed. (3) Sepsis: Code(s): A41.9 - Sepsis, unspecified organism Status: Acute Assessment and Plan: Patient's condition is Improved, blood cultures were negative. Subjective Subjective Date/Time Seen: 04/17/22 12:16 The patient is s/p Cystoscopy, left stent, left retrograde pyelogram with Dr. Walker on 04/14/22. His urine and blood cultures were negative. He will be discharged home today after a voiding trial. Post Op day: 3 Review of Systems Cardiovascular: Cardiovascular: Denies chest pain Respiratory: Respiratory: Reports no additional respiratory complaints Gastrointestinal: Gastrointestinal: Denies abdominal pain and Denies vomiting Genitourinary: Genitourinary: Denies hematuria and Denies flank pain Exam Const: General: comfortable and alert Resp: Effort & Inspection: normal respiratory effort Cardio: Rate: regular rate GI: GI Palp: Yes Soft to palpation and No Tenderness to palpation present (GI) : General: Yes no CVA tenderness Urinary Catheter: Urinary Catheter: patent and draining and urine clear Extrem: Right lower extremity: no edema Left lower extremity: no edema Objective Data Vital Signs Vital Signs: Vital Signs - 24 hr 04/16/22 13:56 04/16/22 13:58 04/16/22 16:00 Temperature 97.4 F L 98.3 F Pulse Rate 70 71 Respiratory Rate 16 16 Blood Pressure 128/105 H 123/71 Pulse Oximetry 94 98 Oxygen Delivery Room Air 04/16/22 20:00 04/16/22 21:25 04/17/22 00:00 Temperature 98 F 98.2 F Pulse Rate 103 H 101 H 97 Respiratory Rate 20 20 Blood Pressure 141/85 H 137/82 Pulse Oximetry 95 96 Oxygen Delivery 04/17/22 04:00 04/17/22 08:35 04/17/22 08:53 Temperature 98 F Pulse Rate 66 60 Respiratory Rate 20 Blood Pressure 135/51 L Pulse Oximetry 95 Oxygen Delivery Room Air 04/17/22 08:37 04/17/22 08:00 04/17/22 08:30 Temperature 97.7 F Pulse Rate 80 Respiratory Rate 18 Blood Pressure 153/74 H Pulse Oximetry 96 Oxygen Delivery Room Air Room Air Intake/Output Intake/Output: Intake & Output 04/14/22 04/15/22 04/16/22 04/17/22 23:59 23:59 23:59 23:59 Intake Total 2093 1974 912 120 Output Total 2960 4161 5130 1600 Balance -867 02 -1480 -2360 Meds/Results Medications: Active Medications Generic Name Dose Route Start Last Admin Trade Name Freq PRN Reason Stop Dose Admin Acetaminophen 650 mg 04/14/22 00:42 04/17/22 01:33 Acetaminophen 325 Mg Tablet PO 650 mg Q4H PRN Administration Mild Pain (1-3) or Fever Albuterol 2.5 mg 04/14/22 22:15 04/14/22 22:46 Albuterol Sulfate Neb 2.5 Mg/3 Ml Inh INHALATION 2.5 mg Q4HRT PRN Administration Shortness Of Breath Brimonidine Tartrate 1 drop 04/14/22 09:00 04/17/22 08:25 Brimonidine Tartrate 0.2% Op Soln 5 Ml Btl EACH EYE 1 drop BID MART Administration Diclofenac Sodium 1 applic 04/14/22 09:00 04/17/22 08:25 Diclofenac Sodium 1% 100 Gm Gel (*Bkc) TOPICAL 1 applic QID MART Administration Dorzolamide HCl 1 drop 04/14/22 09:00 04/17/22 08:25 Dorzolamide Hcl 2% Ophth Drops LEFT EYE 1 drop TID MART Administration Hydroxychloroquine Sulfate 400 mg
== END 2022-04-17 14:09 | disposition home health service (06) | DRG 853 ==
LOC: ANHED 17:01 → ANHIMU 19:37 → ANH2MED 04-16 13:47
PROVIDERS: Nurse Practitioner; Urology; Admitting Provider Family Medicine; Emergency Provider Emergency Medicine; PCP Family Medicine; Visit Provider Chiropractor
PROC: 0T778DZ Dilation of Left Ureter with Intraluminal Device, Via Natural or Artificial Opening Endoscopic (ICD-10-PCS; CPT 52352; principal; 2022-04-14 16:00)
DX: A41.9 Sepsis, unspecified organism (principal); I26.99 Other pulmonary embolism without acute cor pulmonale; N39.0 Urinary tract infection, site not specified; N20.1 Calculus of ureter; N13.8 Other obstructive and reflux uropathy; N40.1 Benign prostatic hyperplasia with lower urinary tract symptoms; N32.89 Other specified disorders of bladder; Z20.822 Contact with and (suspected) exposure to COVID-19; I10 Essential (primary) hypertension; M05.79 Rheumatoid arthritis with rheumatoid factor of multiple sites without organ or systems involvement; H40.9 Unspecified glaucoma; C61 Malignant neoplasm of prostate; Z79.899 Other long term (current) drug therapy; Z87.440 Personal history of urinary (tract) infections; Z87.891 Personal history of nicotine dependence; Z92.3 Personal history of irradiation
CPT/HCPCS: 36415; 70450; 71045; 74018; 74178; 74420; 80048; 80053; 80202; 81001; 82565; 82728; 82948; 83605; 83735; 84439; 84443; 84480; 85025; 85610; 85730; 86140; 87040; 87086; 87088; 93005; 94640; 96365; 96375; 97161; 97165; 99285; A9270; C1758; C1769; C9803; J0696; J1885; J1940; J2060; J2370; J2704; J3010; J3370; J7030; J7120; Q9967; U0003; U0005

== ENCOUNTER 2022-04-20 12:45 | Outpatient (CLI) | payer MEDICARE, SELFPAY ==
[2022-04-22 19:50] LABS: Homocysteine 13.4 umol/L (<11.4)
[2022-04-22 20:47] LABS: Antithrombin III Activity 92 % normal (80-135)
== END 2022-04-20 12:46 | disposition home or self-care (01) ==
LOC: ANHLAB 12:47
PROVIDERS: PCP Family Medicine; Visit Provider Internal Medicine Hematology & Oncology
DX: I26.99 Other pulmonary embolism without acute cor pulmonale (principal); D68.2 Hereditary deficiency of other clotting factors
CPT/HCPCS: 36415; 81240; 83090; 85300; 85303; 85306; 86146

== ENCOUNTER 2022-04-28 00:59 | Day surgery (SDC) | payer MEDICARE, SELFPAY ==
[2022-04-21 09:18] VITALS: BMI 36.4
--- NOTE | 2022-04-21 09:48 | PC.NURSE ---
Report to the Outpatient Waiting Room, entrance under the green pavilion located off [facility], at time __8:30AM on date __04/28/22 . OR Time: __10:30AM . Time changes happen often and if your time is changed the preop area will call you the afternoon before. - You and your visitor will be asked to self-screen and do not enter if you have any COVID symptoms. - Only one visitor and NO children visitors are allowed at this time. - The patient visitor is requested to leave or wait in car when not with patient due to restrictions. - A mask is required within the hospital. Patients may have clear liquids (water, carbonated beverages, clear teas, apple juice) until 3 hours prior to surgery with a maximum of 20 ounces. - No food from midnight until time of surgery Take the following medications with a SIP of water the morning of surgery: __CEPHALEXIN, METOPROLOL, 2 MORNING EYE DROPS Medications to discontinue per physician NONE Please no make-up, nail citizen of [place], hairspray, perfume, deodorant, or body powder the day of surgery. No jewelry (including any body piercings) or valuables the day of surgery, leave them at home. Please take a shower or bath the night before, or the morning of, surgery with an antibacterial soap. Wear comfortable, loose fitting clothing. Children are encouraged to wear pajamas. - Jewelry must be removed prior to entering the operating room. Rings and piercings that are not removed may be cut off. - The hospital will not accept responsibility for valuables. - Please leave all valuables, including medications, at home the day of surgery. If you are going home after surgery, a licensed ems driver must drive you home. - NO public transportation without another adult. - We recommend that an adult stay with you for 24 hours following discharge. - We also recommend that you do not drive, make important decision, drink alcoholic beverages, or take any drugs that were not prescribed by your health care provider for at least 24 hours after your discharge time. Follow any additional instructions given to you from your surgeon. If you or anyone in your household have experienced Covid symptoms in the past week, please notify your surgeon or the nurse liaison at the phone number below for possible testing. Telephone instructions given to __PATIENT and asked if any additional questions and then verbalized understanding. Patient advised to call surgeon office or pre surgery nurse liaison [phone] if any additional questions.
--- NOTE | 2022-04-25 13:32 | PM.HPGS ---
History of Present Illness History of Present Illness Consent: Risks, benefits, and alternatives have been discussed and questions answered. Patient agrees to proceed with procedure. Chief complaint: Left renal stone Narrative: Shant Zaman is a 76 year old male Who was found to have a 10 mm stone in his left renal pelvis several months ago during staging evaluation for prostate cancer. At that time he was also found to have pulmonary emboli. He has now been treated with anticoagulants which has been discontinued. After discussion of options for this stone he elects to proceed with ESWL. He is aware of the risk including, but not limited to, perinephric hematoma, renal injury, persistent stone fragments that may require additional intervention. Review of Systems Cardiovascular: Cardiovascular: Denies chest pain, Denies lightheadedness, Denies palpitations and Denies dyspnea Respiratory: Respiratory: Denies dyspnea Gastrointestinal: Gastrointestinal: Denies diarrhea, Denies nausea and Denies vomiting Genitourinary: Genitourinary: Denies hematuria and Denies dysuria Endocrine: Endocrine: Denies palpitations PMF Past Medical History Medical History Bacteremia (~10/2019) UTI with bacteremia, CNSS not saprophyticus. Khoury palsy (~2018) Essential hypertension Glaucoma Gout Hypogonadism in male Uses testosterone gel. Kidney stones Osteoarthritis Overactive bladder Paroxysmal atrial fibrillation (~10/2019) associated with sepsis Pre-diabetes Hemoglobin A1c was 6.3% in April 2019. Prostate cancer Retinal vein occlusion of left eye Rheumatoid arthritis with rheumatoid factor of multiple sites without organ or systems involvement He has been methotrexate since being hospitalized with sepsis secondary to UTI in 10/2019, now on Plaquenil. Transient ischemic attack (~2014) Vitamin D deficiency Surgical History Surgical History History of appendectomy (~195) History of left cataract surgery (~2009) Family History Family History Other Acute myocardial infarction Diabetes mellitus Heart disease Hypertension Social History Social History Social History: The patient lives in [place] with his . They have 3 sons and 1 daughter. His , Dariusz, is his emergency contact and he wishes to be a full code. He smoked up to 3 packs of cigarettes per day and quit 1995. No alcohol or drug abuse. 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 status full code Smoking packs per day: 1.5 Smoking cigarettes per day: 30.0 Years smoked: 34 Smoking pack-years: 51.00 Smoking status: Former smoker Tobacco type: cigarettes Smoking end date: 01/20/98 Alcohol intake: former Alcohol use details: occasional glass of wine Substance use: never Additional living arrangements comments: - DARIUS[facility] Gender identity (if verbalized by the patient): Male Spiritual care concerns: No Agree to blood products: Yes Meds Home Medications and Allergies Home Medications Medication Instructions Recorded Confirmed Type brimonidine 0.2 %-timolol 0.5 % 1 drp EACH EYE BID 03/02/22 04/21/22 History eye drops (Combigan) diclofenac sodium 1 % topical gel 1 ea topical QID PRN Pain 03/02/22 04/21/22 History (Arthritis Pain (diclofenac)) dorzolamide 2 % eye drops 1 drp LEFT EYE TID 03/02/22 04/21/22 History hydroxychloroquine 200 mg tablet 400 mg PO DAILY 03/02/22 04/21/22 History lisinopril 10 mg tablet 10 mg PO DAILY 03/02/22 04/21/22 History oxybutynin chloride 10 mg 10 mg PO DAILY 03/02/22 04/21/22 History tablet,extended release 24 hr tamsulosin 0.4 mg capsule 0.4 mg PO DAILY 03/02/22 04/21/22 History travoprost 0.004 % eye drops 1 drp EAC
[2022-04-28] VITALS (9 sets, daily range): BP systolic 105–120; BP diastolic 52–80; PULSE 51–77; RESP 14–22; TEMP 36.4–36.8; O2SAT 95–100
--- NOTE | ~2022-04-28 | XR_ITS ---
EXAMINATION: XR abdomen/kub 1V DATE: 04/28/2022 08:40 INDICATION: Kidney stone. TECHNIQUE: A supine view of the abdomen on 2 radiographs was obtained. COMPARISON: CT abdomen and pelvis 04/14/2022 FINDINGS: There are no dilated loops of bowel. There is a left internal ureteral stent in expected po sition. There are 16 mm and 4 mm stones in left kidney. IMPRESSION: 1. Left kidney stones with left internal ureteral stent in expected position. Reviewed, dictated and finalized at location D.
--- NOTE | 2022-04-28 06:56 | WPDHPUPDATE1 ---
History and Physical Update Update Date/Time: 04/28/22 06:56 History and Physical has been reviewed, including an updated exam of the patient. There are NO changes in the patient's condition. Risks, benefits, and alternatives have been discussed and questions answered. Patient agrees to proceed with procedure.
--- NOTE | 2022-04-28 09:00 | WPDANESEPPF ---
Anes - Initial Pre Proc Eval Procedure: Operation Date: 04/28/22 10:30 Proposed Procedures p Left Ureteral Extracorporeal Shock Wave Lithotripsy - Pablo Walker MD Date/Time: 04/28/22 09:00 Surgeon: Pablo Walker MD Pre Op Diagnosis: Left renal stone Patient Data Age: 76 Gender: M Height: 1.75 m Weight: 112 kg Allergies Allergy/AdvReac Type Severity Reaction Status Date / Time No Known Drug Allergies Allergy Mild unknown Verified 04/21/22 09:47 Home Medications Medication Instructions Recorded Confirmed Type brimonidine 0.2 %-timolol 0.5 % 1 drp EACH EYE BID 03/02/22 04/21/22 History eye drops (Combigan) diclofenac sodium 1 % topical gel 1 ea topical QID PRN Pain 03/02/22 04/21/22 History (Arthritis Pain (diclofenac)) dorzolamide 2 % eye drops 1 drp LEFT EYE TID 03/02/22 04/21/22 History hydroxychloroquine 200 mg tablet 400 mg PO DAILY 03/02/22 04/21/22 History lisinopril 10 mg tablet 10 mg PO DAILY 03/02/22 04/21/22 History oxybutynin chloride 10 mg 10 mg PO DAILY 03/02/22 04/21/22 History tablet,extended release 24 hr tamsulosin 0.4 mg capsule 0.4 mg PO DAILY 03/02/22 04/21/22 History travoprost 0.004 % eye drops 1 drp EACH EYE HS 03/02/22 04/21/22 History metoprolol tartrate 50 mg tablet 50 mg PO BID #180 tabs 03/06/22 04/21/22 Rx cephalexin 500 mg capsule 500 mg PO DAILY #30 caps 04/17/22 04/21/22 Rx Patient hx anesthesia problems: none Family hx anesthesia problems: none Results Review: All pre-operative results and documents have been reviewed as part of the pre-operative evaluation. [facility] Past Medical History Medical History Bacteremia (~10/2019) UTI with bacteremia, CNSS not saprophyticus. Khoury palsy (~2018) Essential hypertension Glaucoma Gout Hypogonadism in male Uses testosterone gel. Kidney stones Osteoarthritis Overactive bladder Paroxysmal atrial fibrillation (~10/2019) associated with sepsis Pre-diabetes Hemoglobin A1c was 6.3% in April 2019. Prostate cancer Retinal vein occlusion of left eye Rheumatoid arthritis with rheumatoid factor of multiple sites without organ or systems involvement He has been methotrexate since being hospitalized with sepsis secondary to UTI in 10/2019, now on Plaquenil. Transient ischemic attack (~2014) Vitamin D deficiency Surgical History Surgical History History of appendectomy (~1957) History of left cataract surgery (~2009) Family History Family History Other Acute myocardial infarction Diabetes mellitus Heart disease Hypertension Social History Social History Social History: The patient lives in [place] with his . They have 3 sons and 1 daughter. His , Vandana, is his emergency contact and he wishes to be a full code. He smoked up to 3 packs of cigarettes per day and quit 1995. No alcohol or drug abuse. 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 Smoking packs per day: 1.5 Smoking cigarettes per day: 30.0 Years smoked: 34 Smoking pack-years: 51.00 Smoking status: Former smoker Tobacco type: cigarettes Smoking end date: 01/20/98 Alcohol intake: former Alcohol use details: occasional glass of wine Substance use: never Living arrangements: with family Additional living arrangements comments: - VANDANA Gender identity (if verbalized by the patient): Male Spiritual care concerns: No Agree to blood products: Yes Anes - Eval Final PreProcedure Day of Procedure 04/28/22 09:00 Patient weight: obese Heart: regular rate and rhythm Lungs: clear to auscultation Airway: Mallampati scale class II Neurological: alert and oriented Last oral intake: >/= 8 hours ASA classification: III Emerg
[2022-04-28] MEDS: LACTATED RINGERS 1,000 ML 30 ML IV CONT (09:15)
[2022-04-28 09:59] LABS: INR 1.2; Prothrombin Time 14.4 Seconds (11.1-14.7)
[2022-04-28 10:01] LABS: Partial Thromboplastin Time 25.5 SECONDS (22.3-36.8)
--- NOTE | 2022-04-28 11:02 | W.PM.PROC2 ---
Procedure Note - Detailed Date of Procedure 04/28/22 Pre-op Diagnosis Left renal stone Post-op Diagnosis Same Procedure Performed Left ESWL Surgeon Pablo Walker MD Description of Procedure The patient was brought to the operative suite where he was placed in the supine position on the Dornier lithotripsy table. The focal point of the lithotripter was placed at a 16mm left renal calculus. A total of 2500 shocks were delivered at a power setting of 4. There appeared to be good fragmentation of the stone. The patient tolerated the procedure well and was taken to the recovery room in good condition. Drains No Packing Yes Pathology None sent Complications No immediate complications Condition Stable
[2022-04-28 12:08] LABS: Glucose Point of Care 89 mg/dl (65-105)
== END 2022-04-28 13:30 | disposition home or self-care (01) ==
PROVIDERS: PCP Family Medicine; Visit Provider Urology
PROC: (CPT 50590; principal; 2022-04-28 10:30)
DX: N20.0 Calculus of kidney (principal); C61 Malignant neoplasm of prostate; Z86.711 Personal history of pulmonary embolism; Z79.01 Long term (current) use of anticoagulants; I10 Essential (primary) hypertension; R73.03 Prediabetes; M10.9 Gout, unspecified; H40.9 Unspecified glaucoma; Z86.73 Personal history of transient ischemic attack (TIA), and cerebral infarction without residual deficits; M06.9 Rheumatoid arthritis, unspecified; Z87.891 Personal history of nicotine dependence
CPT/HCPCS: 50590; 36415; 74018; 82948; 85610; 85730; J0690; J2405; J2704; J3010; J7120

== ENCOUNTER 2022-05-15 08:23 | Outpatient (CLI) | payer MEDICARE, SELFPAY ==
--- NOTE | ~2022-05-15 | XR_ITS ---
EXAMINATION: XR abdomen/kub 1V INDICATION: Calculus of the kidney TECHNIQUE: Supine views of the abdomen were obtained on 2 radiographs. COMPARISON: 04/28/2022 FINDINGS: A left internal ureteral stent is in expected position. There has been interval fragmentati on of the previously described stone in the left kidney lower pole. Two smaller stone fragments are n ow seen in the left kidney lower pole which measure 11 mm and 10 mm. No definite stone fragments are identified along the internal ureteral stent. IMPRESSION: 1. Interval placement of a left internal ureteral stent in expected position and fragmentation of the previously identified left kidney lower pole stone. Reviewed, dictated and finalized at location A. IMPRESSION: 1. Interval placement of a left internal ureteral stent in expected position an d fragmentation of the previously identified left kidney lower pole stone.
== END 2022-05-15 08:24 | disposition home or self-care (01) ==
LOC: ANHLAB 08:26
PROVIDERS: PCP Family Medicine; Visit Provider Urology
DX: N20.0 Calculus of kidney (principal)
CPT/HCPCS: 74018

== ENCOUNTER 2022-05-26 17:01 | Inpatient (IN) | payer MEDICARE, SELFPAY ==
[2022-05-26] VITALS (23 sets, daily range): BP systolic 119–142; BP diastolic 60–75; PULSE 89–119; RESP 16–32; TEMP 38.4; O2SAT 91–98
--- NOTE | ~2022-05-26 | XR_ITS ---
XR chest 1V portable DATE: 05/26/2022 17:40 INDICATION: Fever, confusion, weakness. History of atrial fibrillation, hypertension. TECHNIQUE: Portable upright AP chest on 05/26/2022 at 1732 hours COMPARISON: 04/13/2022 portable AP chest FINDINGS: There is pulmonary vascular redistribution which may indicate mild pulmonary venous hyperte nsion. There is suggestion of minimal atelectasis at the lung bases. No pleural effusion or pneumothorax. Heart size is not optimally evaluated on AP projection but is likely within normal range. There is ao rtic calcification and mild aortic unfolding. IMPRESSION: Pulmonary vascular redistribution may indicate mild pulmonary venous hypertension Minimal atelectasis is suggested at the lung bases Reviewed, dictated and finalized at location A. IMPRESSION: Pulmonary vascular redistribution may indicate mild pulmonary venou s hypertension Minimal atelectasis is suggested at the lung bases
--- NOTE | ~2022-05-26 | CT_ITS ---
EXAMINATION: CT brain wo con DATE: 05/26/2022 22:14 INDICATION: Altered mental state, confusion, weakness TECHNIQUE: Computed tomography (CT) of the head was performed without intravenous contrast. The mA wa s adjusted according to patient size. Iterative reconstruction technique was employed. Exam dose: 68 1.00 mGy-cm total exam DLP. COMPARISON: 04/14/2022 CT lumbar FINDINGS: Bilateral carotid siphon internal carotid artery calcifications. There is nonspecific dimin ished attenuation of the cerebral white matter, likely due to chronic small vessel ischemic changes. There is central and cortical cerebral atrophy. No intracranial mass lesion or hemorrhage or cerebrovascular accident. No midline shift or mass effec t effect. No subdural or epidural hematoma. Patchy soft tissue thickening of the ethmoid air cells is noted bilaterally. There is mild mucoperios teal thickening of the right maxillary sinus. The mastoid air cells are normally developed and aerate d. No fracture or bone destruction of the cranial vault. IMPRESSION: Cerebral atherosclerosis and chronic small vessel ischemic changes of the cerebral white matter and central and cortical cerebral atrophy No acute intracranial finding Reviewed, dictated and finalized at Location A. Reviewed, dictated and finalized at location A.
--- NOTE | ~2022-05-26 | CT_ITS ---
EXAMINATION: CT abdomen pelvis wo con DATE: 05/26/2022 20:21 INDICATION: Flank pain, fever. History of kidney stones. TECHNIQUE: Computed tomography (CT) of the abdomen and pelvis was performed without intravenous contr ast. Automated exposure control and iterative reconstruction technique were employed. Exam dose: 189 1.86 mGy-cm total exam DLP. COMPARISON: 04/14/2022 CT abdomen without and with IV contrast FINDINGS: Minimal atelectasis at the lung bases. Normal heart size. Prominent coronary artery calcifi cations. No pericardial or pleural effusion. No hepatic, splenic, pancreatic, adrenal or suspicious renal space-occupying mass lesion; lower pole right renal cyst.. The gallbladder is unremarkable. No bile duct or pancreatic duct dilatation. There is no longer a calculus at the left ureteropelvic junction, with stone burden relocated to lowe r pole of left kidney and distal ureter: There are increased stones in the lower pole collecting sys tem of the left kidney, and there is approximately 2.5 cm long [address] in the distal left ureter , the latter causing moderate left hydroureteronephrosis. Moderate thickening of the urinary bladder wall. Prostate enlargement and calcifications. Diverticulosis of the colon. No bowel obstruction or intraperitoneal free air. There is atherosclerotic calcification but normal caliber of the abdominal aorta. No intraperitoneal or retroperitoneal or pelvic mass lesion or adenopathy or ascites. Moderate degenerative disease at L1-2. Mildly severe degenerative disc disease and mild retrolisthesi s at L2-3, L3-4. Moderate to moderately severe degenerative disc disease at L4-5. IMPRESSION: Lower pole left nephrolithiasis and 2.5 cm long distal left ureteral Steinstrasse Moderately prominent left hydroureteronephrosis Reviewed, dictated and finalized at Location A. Reviewed, dictated and finalized at location A. IMPRESSION: Lower pole left nephrolithiasis and 2.5 cm long distal left ureter al Steinstrasse Moderately prominent left hydroureteronephrosis
--- NOTE | ~2022-05-26 | XR_ITS ---
EXAMINATION: XR retrograde pyelo w/stent LT DATE: 05/27/2022 13:45 CDT INDICATION: cysto, left stent placement, left RPG . TECHNIQUE: 5 fluoroscopic images of the left abdomen and pelvis were obtained during left retrograde pyelography with stent placement performed by the surgeon. I was not present in the operating room. F luoroscopy exposure time was 17.5 seconds. DAP [id number] [id number]. COMPARISON: CT 05/26/2022 FINDINGS: Contrast fills moderately dilated left collecting system, followed by wire access to an upper pole ca lyx and stent deployment into good position. IMPRESSION: Fluoroscopic documentation of left retrograde pyelography with stent placement. Please refer to the o perative note for complete procedural details . Reviewed, dictated and finalized at location K. IMPRESSION: Fluoroscopic documentation of left retrograde pyelography with stent placement. Please refer to the operative note for complete procedural details .
--- NOTE | 2022-05-26 17:20 | ECG_ITS ---
Measurements Intervals [place] Rate: 101 P: ND: 0 QRS: 25 QRSD: 166 T: -31 QT: 363 QTc: 471 Interpretive Statements SINUS TACHYCARDIA ATRIAL COUPLETS, ATRIAL PREMATURE COMPLEXES, AND VENTRICLAR BIGEMINY RIGHT BUNDLE BRANCH BLOCK ABNORMAL ECG COMPARED TO ECG 04/13/2022 15:02:00 VENTRICLAR BIGEMINY NOW PRESENT Electronically Signed On 05-26-2022 21:34:22 CDT by Francisco Pérez D.O.
--- NOTE | 2022-05-26 17:51 | ED.WEAKNESS ---
HPI - Weakness General Chief complaint: Weakness <Lisa Lovett PA-C - Last Filed: 05/26/22 22:32> Stated complaint: confused <EPIFANIO Duran Last Filed: 05/26/22 22:32> Time Seen by Provider: 05/26/22 17:20 <Lisa Lovett PA-C - Last Filed: 05/26/22 22:32> Source: patient and family <EPIFANIO Duran Last Filed: 05/26/22 22:32> Mode of arrival: EMS <EPIFANIO Duran Last Filed: 05/26/22 22:32> Limitations: altered mental status <EPIFANIO Duran Last Filed: 05/26/22 22:32> History of Present Illness HPI Narrative: This is a 76-year-old male that presents to the emergency department for increasing confusion noted today. Patient lives at home with his . Patient's son reports he went to visit this morning and noted that his father was confused. He also was generally weak. He did report that he had some back pain to his earlier today. Currently he denies any focalizing symptoms. He is noted to be febrile. He has not taken anything for his fever. Denies cough, sore throat, abdominal pain, vomiting, or dysuria. <Lisa Lovett PA-C - Last Filed: 05/26/22 22:32> Related Data Home medications: Home Medications Medication Instructions Recorded Confirmed brimonidine 0.2 %-timolol 0.5 % 1 drp EACH EYE BID 03/02/22 05/27/22 eye drops (Combigan) diclofenac sodium 1 % topical gel 1 ea topical QID PRN Pain 03/02/22 05/27/22 (Arthritis Pain (diclofenac)) dorzolamide 2 % eye drops 1 drp LEFT EYE TID 03/02/22 05/27/22 lisinopril 10 mg tablet 10 mg PO DAILY 03/02/22 05/27/22 oxybutynin chloride 10 mg 10 mg PO DAILY 03/02/22 05/27/22 tablet,extended release 24 hr tamsulosin 0.4 mg capsule 0.4 mg PO DAILY 03/02/22 05/27/22 travoprost 0.004 % eye drops 1 drp EACH EYE HS 03/02/22 05/27/22 <Lisa Lovett PA-C - Last Filed: 05/26/22 22:32> Allergies/Adverse reactions: Allergies Allergy/AdvReac Type Severity Reaction Status Date / Time No Known Drug Allergies Allergy Mild unknown Verified 04/28/22 10:04 <Lisa Lovett PA-C - Last Filed: 05/26/22 22:32> Review of Systems Review of Systems: ROS unobtainable: Yes unobtainable due to medical condition <Lisa Lovett PA-C - Last Filed: 05/26/22 22:32> [facility] Past Medical History Medical History: Medical History Bacteremia (~10/2019) UTI with bacteremia, CNSS not saprophyticus. Khoury palsy (~2018) Essential hypertension Glaucoma Gout Hypogonadism in male Uses testosterone gel. Kidney stones Osteoarthritis Overactive bladder Paroxysmal atrial fibrillation (~10/2019) associated with sepsis Pre-diabetes Hemoglobin A1c was 6.3% in April 2019. Prostate cancer Retinal vein occlusion of left eye Rheumatoid arthritis with rheumatoid factor of multiple sites without organ or systems involvement He has been methotrexate since being hospitalized with sepsis secondary to UTI in 10/2019, now on Plaquenil. Transient ischemic attack (~2014) Vitamin D deficiency <Lisa Lovett PA-C - Last Filed: 05/26/22 22:32> Surgical History Surgical History: Surgical History History of appendectomy (~1958) History of left cataract surgery (~2009) <Lisa Lovett PA-C - Last Filed: 05/26/22 22:32> Family History Family History: Family History Other Acute myocardial infarction Diabetes mellitus Heart disease Hypertension <EPIFANIO Duran Last Filed: 05/26/22 22:32> Social History Social History: Social History Social History: The patient lives in [place] with his . They have 3 sons and 1 daughter. His , Vandana, is his emergency contact and he wishes to be a full code. He smoked up to 3 packs of cigarettes per day an
[2022-05-26] MEDS: SODIUM CHLORIDE 0.9% IV 500 ML 999 ML IV CONT ×2 (18:06→20:50)
[2022-05-26 18:12] LABS: Basophils Percent Auto 0.7 % (0.2-1.2); Eosinophils Absolute Auto 0.1 K/mm3 (0-0.3); Eosinophils Percent Auto 1.7 % (0-4.4); Hematocrit 40.4 % (42.0-52.0); Hemoglobin 13.5 g/dL (14.0-18.0); Immature Granulocyte Absolute 0.01 K/mm3 (0.00-0.031); Immature Granulocyte Percent A 0.2 % (0-0.5); Lymphocytes Absolute Auto 0.29 K/mm3 (0.9-3.2); Lymphocytes Percent Auto 5.4 % (18.3-44.2); Mean Corpuscular HGB Conc 33.4 g/dl (32-36); Mean Corpuscular Hemoglobin 35.1 pg (26-34); Mean Corpuscular Volume 104.9 fl (80-100); Mean Platelet Volume 9.1 fl (7.4-10.4); Monocytes Absolute Auto 0.8 K/mm3 (0.1-0.6); Neutrophils Absolute Auto 4.2 K/mm3 (1.3-6.7); Platelet Count Result 158 k/mm3 (150-375); Red Blood Count 3.85 M/mm3 (4.6-6.20); Red Cell Distribution Width 13.1 % (11.5-14.5); White Blood Count 5.3 K/mm3 (4.5-10.0)
[2022-05-26 18:38] LABS: Lactic Acid Reflex 1.7 mmol/L (0.7-2.0)
[2022-05-26 18:40] LABS: Alanine Aminotransferase 30 U/L (6-50); Albumin Level 4.6 g/dL (3.5-5.1); Alkaline Phosphatase 60 U/L (38-126); Anion Gap 14 mmol/L (8-16); Aspartate Amino Transferase 31 U/L (17-59); Bilirubin,Total 0.6 mg/dL (0.2-1.3); Blood Urea Nitrogen 19 mg/dL (9-20); CRP 1.9 mg/dL (<1.0); Calcium 8.8 mg/dL (8.4-10.2); Carbon Dioxide 24 mmol/L (22-30); Chloride 101 mmol/L (98-107); Estimated CRCL calculation 58 ml/min; Estimated Glomerular Filt Rate 59; Glucose 112 mg/dL (65-110); Lipase 21 U/L (23-300); Sodium 139 mmol/L (137-145)
[2022-05-26 18:47] LABS: INR 1.2; Prothrombin Time 14.4 Seconds (11.1-14.7)
[2022-05-26 18:48] LABS: Partial Thromboplastin Time 26.2 SECONDS (22.3-36.8)
[2022-05-26 18:52] LABS: Influenza A QL RT-PCR Negative (Negative); Influenza B QL RT-PCR Negative (Negative); SARS-CoV-2 RNA PCR Positive
[2022-05-26 19:57] LABS: Appearance Urine Clear (Clear); Bilirubin Urine Negative (Negative); Blood Urine 2+ (Negative); Color Urine Yellow (Yellow); Glucose Urine UA Negative (Negative); Ketones Urine Negative (Negative); Leukocyte Esterase Ur Negative LEU/UL (Negative); Nitrate Urine Negative (Negative); Protein Urine 1+ mg/dL (Negative); Specific Grav Ur 1.025 (1.001-1.035); Urobilinogen Urine 0.2 mg/dL (<2.0); pH Urine 5.5 (5.0-9.0)
[2022-05-26 20:00] LABS: Squamous Epithelial Cell Urine Rare /hpf (Few); WBC Urine 0-3 /hpf
[2022-05-26 20:01] LABS: Add Urine Microscopic? YES
--- NOTE | 2022-05-26 23:09 | PM.IMHP ---
H&P: HPI History of Present Illness Date/Time: 05/26/22 23:09 Chief Complaint: altered mental status Narrative: 76-year-old male with past medical history significant for hypertension, glaucoma, gout, kidney stones, osteoarthritis, paroxysmal atrial fibrillation, rheumatoid arthritis. Patient just underwent outpatient lithotripsy he presents today to the emergency room with episode of altered mental status , back pain, confusion, patient lives at home with and son and were concerned about his confusion. preliminary workup was significant for CT of abdomen and pelvis was reported as: IMPRESSION:? Lower pole left nephrolithiasis and 2.5 cm long distal left ureteral Steinstrasse Moderately prominent left hydroureteronephrosis PMF Past Medical History Medical History Bacteremia (~10/2019) UTI with bacteremia, CNSS not saprophyticus. Khoury palsy (~2018) Essential hypertension Glaucoma Gout Hypogonadism in male Uses testosterone gel. Kidney stones Osteoarthritis Overactive bladder Paroxysmal atrial fibrillation (~10/2019) associated with sepsis Pre-diabetes Hemoglobin A1c was 6.3% in April 2019. Prostate cancer Retinal vein occlusion of left eye Rheumatoid arthritis with rheumatoid factor of multiple sites without organ or systems involvement He has been methotrexate since being hospitalized with sepsis secondary to UTI in 10/2019, now on Plaquenil. Transient ischemic attack (~2014) Vitamin D deficiency Surgical History Surgical History History of appendectomy (~1957) History of left cataract surgery (~2009) Family History Family History Other Acute myocardial infarction Diabetes mellitus Heart disease Hypertension Social History Social History Social History: The patient lives in [place] with his . They have 3 sons and 1 daughter. His , Dariusz, is his emergency contact and he wishes to be a full code. He smoked up to 3 packs of cigarettes per day and quit 1995. No alcohol or drug abuse. 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 Smoking packs per day: 1.5 Smoking cigarettes per day: 30.0 Years smoked: 34 Smoking pack-years: 51.00 Smoking status: Former smoker Alcohol intake: former Alcohol use details: occasional glass of wine Substance use: never Additional living arrangements comments: - DARIUS[place] Gender identity (if verbalized by the patient): Male Spiritual care concerns: No Agree to blood products: Yes Meds Home Medications and Allergies Home Medications Medication Instructions Recorded Confirmed Type brimonidine 0.2 %-timolol 0.5 % 1 drp EACH EYE BID 03/02/22 05/27/22 History eye drops (Combigan) diclofenac sodium 1 % topical gel 1 ea topical QID PRN Pain 03/02/22 05/27/22 History (Arthritis Pain (diclofenac)) dorzolamide 2 % eye drops 1 drp LEFT EYE TID 03/02/22 05/27/22 History lisinopril 10 mg tablet 10 mg PO DAILY 03/02/22 05/27/22 History oxybutynin chloride 10 mg 10 mg PO DAILY 03/02/22 05/27/22 History tablet,extended release 24 hr tamsulosin 0.4 mg capsule 0.4 mg PO DAILY 03/02/22 05/27/22 History travoprost 0.004 % eye drops 1 drp EACH EYE HS 03/02/22 05/27/22 History metoprolol tartrate 50 mg tablet 50 mg PO BID #180 tabs 03/06/22 05/27/22 Rx hydroxychloroquine 200 mg tablet 400 mg PO DAILY #180 tabs 05/09/22 05/27/22 Rx prednisone 2.5 mg tablet 2.5 mg PO DAILY #40 tabs 05/09/22 05/27/22 Rx Allergies Allergy/AdvReac Type Severity Reaction Status Date / Time No Known Drug Allergies Allergy Mild unknown Verified 04/28/22 10:04 Vital Signs Vital Signs - 24 hr 05/26/22 17:06 Temperature 101.1 F H Pulse Rate 91 Respiratory Rate 16 Blood Pressure 119/62
[2022-05-27] VITALS (20 sets, daily range): BP systolic 121–156; BP diastolic 36–82; PULSE 61–92; RESP 16–25; TEMP 36.6–37.6; O2SAT 85–100; BMI 33.5
--- NOTE | 2022-05-27 00:09 | WPDANESEPP ---
Anes - Eval Pre Procedure Procedure: Cystoureteroscopy with stent placement Date/Time: 05/27/22 00:09 Surgeon: Denise Preop Diagnosis: Left kidney stones Pre Op Diagnosis: confused Patient Data Age: 76 Gender: M Height: 1.8 m Weight: 109 kg Last Vital Signs Temp 101.1 F H 05/26/22 17:06 Pulse 91 05/26/22 17:06 Resp 16 05/26/22 17:06 BP 119/62 05/26/22 17:06 Pulse Ox 97 05/26/22 17:06 Allergies Allergy/AdvReac Type Severity Reaction Status Date / Time No Known Drug Allergies Allergy Mild unknown Verified 04/28/22 10:04 Home Medications Medication Instructions Recorded Confirmed Type brimonidine 0.2 %-timolol 0.5 % 1 drp EACH EYE BID 03/02/22 05/09/22 History eye drops (Combigan) diclofenac sodium 1 % topical gel 1 ea topical QID PRN Pain 03/02/22 05/09/22 History (Arthritis Pain (diclofenac)) dorzolamide 2 % eye drops 1 drp LEFT EYE TID 03/02/22 05/09/22 History lisinopril 10 mg tablet 10 mg PO DAILY 03/02/22 05/09/22 History oxybutynin chloride 10 mg 10 mg PO DAILY 03/02/22 05/09/22 History tablet,extended release 24 hr tamsulosin 0.4 mg capsule 0.4 mg PO DAILY 03/02/22 05/09/22 History travoprost 0.004 % eye drops 1 drp EACH EYE HS 03/02/22 05/09/22 History metoprolol tartrate 50 mg tablet 50 mg PO BID #180 tabs 03/06/22 05/09/22 Rx cephalexin 500 mg capsule 500 mg PO DAILY #30 caps 04/17/22 05/09/22 Rx cephalexin 500 mg capsule 500 mg PO Q8H #9 caps 04/28/22 05/09/22 Rx hydrocodone 5 mg-acetaminophen 325 1 - 2 tablet PO Q6H PRN pain #20 04/28/22 05/09/22 Rx mg tablet tabs hydroxychloroquine 200 mg tablet 400 mg PO DAILY #180 tabs 05/09/22 05/09/22 Rx prednisone 2.5 mg tablet 2.5 mg PO DAILY #40 tabs 05/09/22 05/09/22 Rx Laboratory Tests 05/26/22 05/26/22 05/26/22 18:02 18:02 18:02 WBC 5.3 K/mm3 K/mm3 (4.5-10.0) RBC 3.85 M/mm3 L M/mm3 (4.6-6.20) Hgb 13.5 g/dL L g/dL (14.0-18.0) Hct 40.4 % L % (42.0-52.0) MCV 104.9 fl H fl (80-100) MCH 35.1 pg H pg (26-34) MCHC 33.4 g/dl g/dl (32-36) RDW 13.1 % % (11.5-14.5) Plt Count 158 k/mm3 k/mm3 (150-375) MPV 9.1 fl fl (7.4-10.4) Immature Gran % (Auto) 0.2 % % (0-0.5) Neut % (Auto) 78.0 % H % (45.5-73.1) Lymph % (Auto) 5.4 % L % (18.3-44.2) Foard % (Auto) 14.0 % H % (2.6-8.5) Eos % (Auto) 1.7 % % (0-4.4) Baso % (Auto) 0.7 % % (0.2-1.2) Lymph # (Auto) 0.29 K/mm3 L K/mm3 (0.9-3.2) Foard # (Auto) 0.8 K/mm3 H K/mm3 (0.1-0.6) Eos # (Auto) 0.1 K/mm3 K/mm3 (0-0.3) Baso # (Auto) 0.0 K/mm3 K/mm3 (0.0-0.1) Abs Immat Gran (auto) 0.01 K/mm3 K/mm3 (0.00-0.031) Absolute Neuts (auto) 4.2 K/mm3 K/mm3 (1.3-6.7) Absolute Nucleated RBC 0.0 K/mm3 K/mm3 (0.0-0.012) Nucleated RBC % 0.0 % % (0.0-0.2) PT INR APTT Sodium 139 mmol/L mmol/L (137-145) Potassium 4.0 mmol/L mmol/L (3.4-5.0) Chloride 101 mmol/L mmol/L (98-107) Carbon Dioxide 24 mmol/L mmol/L (22-30) Anion Gap 14 mmol/L mmol/L (8-16) BUN 19 mg/dL mg/dL (9-20) Creatinine 1.20 mg/dL mg/dL (0.7-1.3) Estim Creat Clear Calc 58 ml/min ml/min Estimated GFR 59 (59 - ) Glucose 112 mg/dL H mg/dL (65-110) Lactic Acid 1.7 mmol/L mmol/L (0.7-2.0) Calcium 8.8 mg/dL mg/dL (8.4-10.2) Total Bilirubin 0.6 mg/dL mg/dL (0.2-1.3) AST 31 U/L U/L (17-59) ALT 30 U/L U/L (6-50) Alkaline Phosphatase 60 U/L U/L (38-126) C-Reactive Protein 1.9 mg/dL H mg/dL (<1.0) Total Protein 8.0 g/dL g/dL (6.3-8.2) Albumin 4.6 g/dL g/dL (3.5-5.1) Lipase 21 U/L L U/L (23-300) Urine Color
--- NOTE | 2022-05-27 01:05 | ADMGEN ---
This patient, Shant Zaman, was admitted to [facility] Surg Room 332-01. Patient/family oriented to hospital policies and general routines including ID bracelet, bed and alarms, visiting hours, pain management, procedures, bathroom and other care routines, personal items, smoking policy, room service/diet, and visiting hours. Information on how to activate the Rapid Response Team has been discussed. Patient/Family are encouraged to report perceived risks to care and to ask questions if they do not understand what they are told or what they should do.
[2022-05-27] MEDS: METOPROLOL TARTRATE 50 MG TAB PO ×2 (02:18→20:54)
[2022-05-27] MEDS: SODIUM CHLORIDE 0.9% IV 1,000 ML 100 ML IV CONT ×2 (02:18→12:55)
--- NOTE | 2022-05-27 07:19 | WPDURCON ---
Assessment and Plan Assessment and plan (1) Left ureteral stone: Code(s): N20.1 - Calculus of ureter Status: Acute (2) Left renal stone: Code(s): N20.0 - Calculus of kidney Status: Acute Assessment and Plan: Cystoscopy with left ureteral stent placement and possible left retrograde pyelogram Urology Consult Note HPI Date Seen: 05/27/22 Requesting Physician: Brittany Lin MD Primary Care Provider: Campbell Cho MD Consult Narrative Narrative: Shant Zaman is a 76 year old male who is known to me from a recent ESWL for a 15-16 mm left renal calculus. He did well following that procedure presented to the ER last night with fever. He has been found to be COVID positive but, on further evaluation, CT scan the abdomen pelvis shows a left ureteral Steinstrasse. He has had little if any flank disc comfort, hematuria or irritable voiding symptoms. Review of Systems Cardiovascular: Cardiovascular: Denies chest pain, Denies lightheadedness, Denies palpitations and Denies dyspnea Respiratory: Respiratory: Denies dyspnea Gastrointestinal: Gastrointestinal: Denies diarrhea, Denies nausea and Denies vomiting Genitourinary: Genitourinary: Denies hematuria and Denies dysuria Endocrine: Endocrine: Denies palpitations PMFSH Past Medical History Medical History Bacteremia (~10/2019) UTI with bacteremia, CNSS not saprophyticus. Khoury palsy (~2018) Essential hypertension Glaucoma Gout Hypogonadism in male Uses testosterone gel. Kidney stones Osteoarthritis Overactive bladder Paroxysmal atrial fibrillation (~10/2019) associated with sepsis Pre-diabetes Hemoglobin A1c was 6.3% in April 2019. Prostate cancer Retinal vein occlusion of left eye Rheumatoid arthritis with rheumatoid factor of multiple sites without organ or systems involvement He has been methotrexate since being hospitalized with sepsis secondary to UTI in 10/2019, now on Plaquenil. Transient ischemic attack (~2014) Vitamin D deficiency Surgical History Surgical History History of appendectomy (~1958) History of left cataract surgery (~2009) Family History Family History Other Acute myocardial infarction Diabetes mellitus Heart disease Hypertension Social History Social History Social History: The patient lives in [place] with his . They have 3 sons and 1 daughter. His , Dariusz, is his emergency contact and he wishes to be a full code. He smoked up to 3 packs of cigarettes per day and quit 1995. No alcohol or drug abuse. 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 code Smoking packs per day: 1.5 Smoking cigarettes per day: 30.0 Years smoked: 34 Smoking pack-years: 51.00 Smoking status: Former smoker Alcohol intake: former Alcohol use details: occasional glass of wine Substance use: never Additional living arrangements comments: - [facility] Gender identity (if verbalized by the patient): Male Spiritual care concerns: No Agree to blood products: Yes Meds Home Medications and Allergies Home Medications Medication Instructions Recorded Confirmed Type brimonidine 0.2 %-timolol 0.5 % 1 drp EACH EYE BID 03/02/22 05/27/22 History eye drops (Combigan) diclofenac sodium 1 % topical gel 1 ea topical QID PRN Pain 03/02/22 05/27/22 History (Arthritis Pain (diclofenac)) dorzolamide 2 % eye drops 1 drp LEFT EYE TID 03/02/22 05/27/22 History lisinopril 10 mg tablet 10 mg PO DAILY 03/02/22 05/27/22 History oxybutynin chloride 10 mg 10 mg PO DAILY 03/02/22 05/27/22 History tablet,extended release 24 hr tamsulosin 0.4 mg capsule 0.4 mg PO DAILY 03/02/22 05/27/22 History travoprost 0.004 % eye cristina
--- NOTE | 2022-05-27 07:22 | WPDHPUPDATE1 ---
History and Physical Update Update Date/Time: 05/27/22 07:22 History and Physical has been reviewed, including an updated exam of the patient. There are NO changes in the patient's condition. Risks, benefits, and alternatives have been discussed and questions answered. Patient agrees to proceed with procedure.
[2022-05-27] MEDS: BRIMONIDINE TARTRATE 0.2% OP SOLN 5 ML BTL 1 DROP EACH EYE ×2 (08:23→18:31)
[2022-05-27] MEDS: TIMOLOL MALEATE 0.5% OP SOLN 5 ML BOTTLE 1 DROP EACH EYE ×2 (08:29→18:31)
[2022-05-27] MEDS: DORZOLAMIDE HCL 2% OPHTH DROPS 1 DROP LEFT EYE ×3 (08:30→18:31)
--- NOTE | 2022-05-27 13:11 | WPDANESEPPF ---
Anes - Initial Pre Proc Eval Procedure: Operation Date: 05/27/22 13:00 Proposed Procedures p Cystoscopy, Left Stent Placement(Left) - Pablo Walker MD Date/Time: 05/27/22 13:11 Surgeon: Brittany Lin MD Pre Op Diagnosis: Covid 19, Ureterolithiasis Patient Data Age: 76 Gender: M Height: 1.8 m Weight: 109 kg Last Vital Signs Temp 36.8 C 05/27/22 12:00 Pulse 68 05/27/22 12:00 Resp 16 05/27/22 12:00 BP 134/65 05/27/22 12:00 Pulse Ox 98 05/27/22 12:00 O2 Del Method Room Air 05/27/22 01:10 Allergies Allergy/AdvReac Type Severity Reaction Status Date / Time No Known Drug Allergies Allergy Mild unknown Verified 04/28/22 10:04 Home Medications Medication Instructions Recorded Confirmed Type brimonidine 0.2 %-timolol 0.5 % 1 drp EACH EYE BID 03/02/22 05/27/22 History eye drops (Combigan) diclofenac sodium 1 % topical gel 1 ea topical QID PRN Pain 03/02/22 05/27/22 History (Arthritis Pain (diclofenac)) dorzolamide 2 % eye drops 1 drp LEFT EYE TID 03/02/22 05/27/22 History lisinopril 10 mg tablet 10 mg PO DAILY 03/02/22 05/27/22 History oxybutynin chloride 10 mg 10 mg PO DAILY 03/02/22 05/27/22 History tablet,extended release 24 hr tamsulosin 0.4 mg capsule 0.4 mg PO DAILY 03/02/22 05/27/22 History travoprost 0.004 % eye drops 1 drp EACH EYE HS 03/02/22 05/27/22 History metoprolol tartrate 50 mg tablet 50 mg PO BID #180 tabs 03/06/22 05/27/22 Rx hydroxychloroquine 200 mg tablet 400 mg PO DAILY #180 tabs 05/09/22 05/27/22 Rx prednisone 2.5 mg tablet 2.5 mg PO DAILY #40 tabs 05/09/22 05/27/22 Rx Laboratory Tests 05/26/22 05/26/22 05/26/22 18:02 18:02 18:02 WBC 5.3 K/mm3 K/mm3 (4.5-10.0) RBC 3.85 M/mm3 L M/mm3 (4.6-6.20) Hgb 13.5 g/dL L g/dL (14.0-18.0) Hct 40.4 % L % (42.0-52.0) MCV 104.9 fl H fl (80-100) MCH 35.1 pg H pg (26-34) MCHC 33.4 g/dl g/dl (32-36) RDW 13.1 % % (11.5-14.5) Plt Count 158 k/mm3 k/mm3 (150-375) MPV 9.1 fl fl (7.4-10.4) Immature Gran % (Auto) 0.2 % % (0-0.5) Neut % (Auto) 78.0 % H % (45.5-73.1) Lymph % (Auto) 5.4 % L % (18.3-44.2) Ray % (Auto) 14.0 % H % (2.6-8.5) Eos % (Auto) 1.7 % % (0-4.4) Baso % (Auto) 0.7 % % (0.2-1.2) Lymph # (Auto) 0.29 K/mm3 L K/mm3 (0.9-3.2) Ray # (Auto) 0.8 K/mm3 H K/mm3 (0.1-0.6) Eos # (Auto) 0.1 K/mm3 K/mm3 (0-0.3) Baso # (Auto) 0.0 K/mm3 K/mm3 (0.0-0.1) Abs Immat Gran (auto) 0.01 K/mm3 K/mm3 (0.00-0.031) Absolute Neuts (auto) 4.2 K/mm3 K/mm3 (1.3-6.7) Absolute Nucleated RBC 0.0 K/mm3 K/mm3 (0.0-0.012) Nucleated RBC % 0.0 % % (0.0-0.2) PT INR APTT Sodium 139 mmol/L mmol/L (137-145) Potassium 4.0 mmol/L mmol/L (3.4-5.0) Chloride 101 mmol/L mmol/L (98-107) Carbon Dioxide 24 mmol/L mmol/L (22-30) Anion Gap 14 mmol/L mmol/L (8-16) BUN 19 mg/dL mg/dL (9-20) Creatinine 1.20 mg/dL mg/dL (0.7-1.3) Estim Creat Clear Calc 58 ml/min ml/min Estimated GFR 59 (59 - ) Glucose 112 mg/dL H mg/dL (65-110) Lactic Acid 1.7 mmol/L mmol/L (0.7-2.0) Calcium 8.8 mg/dL mg/dL (8.4-10.2) Total Bilirubin 0.6 mg/dL mg/dL (0.2-1.3) AST 31 U/L U/L (17-59) ALT 30 U/L U/L (6-50) Alkaline Phosphatase 60 U/L U/L (38-126) C-Reactive Protein 1.9 mg/dL H mg/dL (<1.0) Total Protein 8.0 g/dL g/dL (6.3-8.2) Albumin 4.6 g/dL g/dL (3.5-5.1) Lipase 21 U/L L U/L (23-300) Urine Color Urine Appearance Urine pH Ur Specific [place] Urine Protein U
[2022-05-27] MEDS: ceFAZolin 2 GM/D5W 50 ML 2 GM/50 ML BAG IVPB (13:35)
[2022-05-27] MEDS: LIDOCAINE HCL 2% GEL UROJET 10 ML PKG MUCOUS MEM (13:59)
--- NOTE | 2022-05-27 14:07 | W.PM.PROC2 ---
Procedure Note - Detailed Date of Procedure 05/27/22 Pre-op Diagnosis Covid 19, Left ureteral Steinstrasse Post-op Diagnosis Same Procedure Performed cystoscopy, left retrograde pyelography and left ureteral stent placement Surgeon Pablo Walker MD Anesthesia General Description of Procedure patient is brought the op suite was prepped draped in routine sterile fashion while in dorsal lithotomy position after the uneventful induction of a general LMA anesthetic. Cystoscopy is undertaken with a 19 F rigid cystoscope. He has moderate lateral lobe hyperplasia with a small median lobe of the prostate. Prostatic urethra measures about 3 cm. He has some hyperemia around the left ureteral orifice consistent with passing some small stones. Imaging shows a left ureteral Steinstrasse. I did obtain left retrograde pyelogram to ensure appropriate positioning of left ureteral stent. A 0.035 in glidewire was advanced into the renal pelvis and a 4.8 F variable length stent is placed with the proximal coil in renal pelvis and distal coil in the bladder. Scopes and wires removed and the patient was taken recovery room good condition Urine Output 175 Drains Yes Pathology None sent Complications No immediate complications Condition Stable Disposition PACU
[2022-05-27] MEDS: LACTATED RINGERS 1,000 ML 30 ML IV CONT (14:09)
--- NOTE | 2022-05-27 15:05 | PC.NURSE ---
pt returned from stent placement, resting comfortably, doing well in good spirits
--- NOTE | 2022-05-27 15:31 | PM.IMPN ---
Progress Note: A&P Assessment and Plan (1) COVID-19: Code(s): U07.1 - COVID-19 Status: Acute Assessment and Plan: asymptomatic 05/27/2022 interval history: patient was seen by urologist and plan to cystoscopy today left ureteral stent placement and possible left retrograde pyelogram, patient is also found to have a positive for COVID he has no fever, not requiring any oxgen and he does complain slight cough but no shortness of breaths, will continue to monitor will follow-up with urologist and further recommendation to follow. (2) Ureterolithiasis: Code(s): N20.1 - Calculus of ureter Status: Acute Assessment and Plan: Doing well post stent follow-up with urology (3) Acute metabolic encephalopathy: Code(s): G93.41 - Metabolic encephalopathy Status: Acute Assessment and Plan: Resolved Subjective Date/time seen: 05/27/22 15:31 Chief Complaint: ? altered mental status HPI-Narrative: ?76-year-old male with past medical history significant for hypertension, glaucoma, gout, kidney stones, osteoarthritis, paroxysmal atrial fibrillation, rheumatoid arthritis.? Patient just underwent outpatient lithotripsy he presents today to the emergency room with episode of altered mental status , back? pain,? confusion, patient lives at home with and son and were concerned about his confusion. preliminary workup was significant for CT of abdomen and pelvis was reported as: IMPRESSION:? Lower pole left nephrolithiasis and 2.5 cm long distal left ureteral Steinstrasse Moderately prominent left hydroureteronephrosis 05/27/2022 interval history: patient was seen by urologist and plan to cystoscopy today left ureteral stent placement and possible left retrograde pyelogram, patient is also found to have a positive for COVID he has no fever, not requiring any oxgen and he does complain slight cough but no shortness of breaths, will continue to monitor will follow-up with urologist and further recommendation to follow. Review of Systems Review of Systems: All systems reviewed & are unremarkable except as noted in HPI and below Cardiovascular: Cardiovascular: Denies chest pain, Denies lightheadedness, Denies palpitations and Denies dyspnea Exam Narrative: Patient is comfortable, NAD HEENT: eyes are clear and none icteric LUNGS: normal respiratory effort ABD: distended Lower extremities: no edema SKIN: nonjaundiced Neuro: grossly intact. Objective Data Vital Signs Vital Signs: Vital Signs - 24 hr 05/26/22 17:06 05/26/22 17:14 05/26/22 17:15 Temperature 101.1 F H Pulse Rate 91 95 105 H Respiratory Rate 16 28 H 20 Blood Pressure 119/62 Pulse Oximetry 97 97 95 Oxygen Delivery Oxygen Flow Rate 05/26/22 17:16 05/26/22 17:30 05/26/22 17:31 Temperature Pulse Rate 108 H 105 H 102 H Respiratory Rate 21 H 20 17 Blood Pressure 124/64 142/60 H Pulse Oximetry 96 97 96 Oxygen Delivery Oxygen Flow Rate 05/26/22 17:53 05/26/22 18:00 05/26/22 18:15 Temperature Pulse Rate 101 H 119 H 106 H Respiratory Rate 28 H 32 H 30 H Blood Pressure Pulse Oximetry 98 97 95 Oxygen Delivery Oxygen Flow Rate 05/26/22 19:26 05/26/22 19:33 05/26/22 19:47 Temperature Pulse Rate 96 98 100 Respiratory Rate 23 H 29 H 27 H Blood Pressure Pulse Oximetry 97 96 91 Oxygen Delivery Oxygen Flow Rate 05/26/22 20:00 05/26/22 20:38 05/26/22 20:45 Temperature Pulse Rate 104 H 100 102 H Respiratory Rate 32 H 30 H 28 H Blood Pressure Pulse Oximetry 94 97 Oxygen Delivery Oxygen Flow Rate 05/26/22 20:46 05/26/22 21:00 05/26/22 22:26 Temperature Pulse Rate 100 104 H 106 H Respiratory Rate 23 H 24 H 22 H Blood Pressure 137/75 Pulse Oximetry 92 Oxygen Delivery Oxygen Flow Rate 05/26/22 22:30 05/26/22 22:45 05/26/22 23:00 Temperature Pulse Rate 109 H 98 89 Respiratory Rate 24 H 25 H 23 H
[2022-05-27] MEDS: HYDROXYCHLOROQUINE SULFATE 200 MG TABLET 400 MG PO (18:28)
[2022-05-27] MEDS: lisinopriL 10 MG TABLET PO (18:29)
[2022-05-27] MEDS: TAMSULOSIN HCL 0.4 MG CAPSULE PO (20:54)
[2022-05-27] MEDS: LATANOPROST 0.005% OP SOLN 2.5 ML BTL 1 DROP EACH EYE (20:54)
--- NOTE | 2022-05-27 23:10 | PC.NURSE ---
I contacted Dr. Lin about the change in mental status of Mr. Zaman. He is very confused and hallucinating. He answers all questions appropriately, but clearly confused. She said that he has been that way. No orders received.
[2022-05-28] VITALS (7 sets, daily range): BP systolic 99–139; BP diastolic 55–80; PULSE 57–104; RESP 18–20; TEMP 36.4–37.4; O2SAT 94–96
--- NOTE | 2022-05-28 01:26 | PC.NURSE ---
Daylight Savings Time For Daylight Savings Time Ending in the Fall - Clocks are moved back. For Daylight Savings Time Beginning in the Spring - Clocks are moved ahead. For [facility], the time of change occurs at 0200 hrs. Time is taken from the oil prospecting observer. This entry on the patient's chart recognizes the change in time reflected during documentation. Example: 2 entries for vital signs may be charted for 0200 hrs.
[2022-05-28 07:56] LABS: Hematocrit 34.7 % (42.0-52.0); Hemoglobin 11.8 g/dL (14.0-18.0); Mean Corpuscular Hemoglobin 34.9 pg (26-34); Mean Corpuscular Volume 102.7 fl (80-100); Mean Platelet Volume 9.1 fl (7.4-10.4); Platelet Count Result 134 k/mm3 (150-375); Red Blood Count 3.38 M/mm3 (4.6-6.20); Red Cell Distribution Width 12.8 % (11.5-14.5); White Blood Count 3.9 K/mm3 (4.5-10.0)
[2022-05-28 08:13] LABS: Anion Gap 15 mmol/L (8-16); Blood Urea Nitrogen 13 mg/dL (9-20); Calcium 7.9 mg/dL (8.4-10.2); Carbon Dioxide 22 mmol/L (22-30); Chloride 102 mmol/L (98-107); Estimated CRCL calculation 69 ml/min; Estimated Glomerular Filt Rate > 60; Glucose 91 mg/dL (65-110); Potassium 3.2 mmol/L (3.4-5.0); Sodium 139 mmol/L (137-145)
[2022-05-28] MEDS: lisinopriL 10 MG TABLET PO (11:04)
[2022-05-28] MEDS: HYDROXYCHLOROQUINE SULFATE 200 MG TABLET 400 MG PO (11:04)
[2022-05-28] MEDS: METOPROLOL TARTRATE 50 MG TAB PO ×2 (11:05→21:23)
[2022-05-28] MEDS: TIMOLOL MALEATE 0.5% OP SOLN 5 ML BOTTLE 1 DROP EACH EYE ×2 (11:09→18:33)
[2022-05-28] MEDS: DORZOLAMIDE HCL 2% OPHTH DROPS 1 DROP LEFT EYE ×3 (11:09→18:33)
[2022-05-28] MEDS: BRIMONIDINE TARTRATE 0.2% OP SOLN 5 ML BTL 1 DROP EACH EYE ×2 (11:09→18:33)
--- NOTE | 2022-05-28 12:51 | WPDUROPN2 ---
Progress Note: A&P Assessment and Plan (1) Ureterolithiasis: Code(s): N20.1 - Calculus of ureter Status: Acute Assessment and Plan: Tolerating ureteral stent very well. Home anytime from my standpoint. F/U 7-10 days for stent removal. Subjective Subjective Date/Time Seen: 05/28/22 12:51 Tolerating stent very well Review of Systems Cardiovascular: Cardiovascular: Denies chest pain, Denies lightheadedness, Denies palpitations and Denies dyspnea Respiratory: Respiratory: Denies dyspnea Gastrointestinal: Gastrointestinal: Denies diarrhea, Denies nausea and Denies vomiting Genitourinary: Genitourinary: Denies hematuria and Denies dysuria Endocrine: Endocrine: Denies palpitations Exam Const: General: no acute distress Resp: Effort & Inspection: normal respiratory effort GI: Inspection: non-distended GI Palp: No abdominal tenderness and No Guarding due to palpation present (GI) Auscultation: normal bowel sounds Objective Data Vital Signs Vital Signs: Vital Signs - 24 hr 05/27/22 14:09 05/27/22 14:20 05/27/22 14:35 Temperature 99.6 F Pulse Rate 87 84 75 Respiratory Rate 18 18 18 Blood Pressure 144/74 H 146/81 H 143/74 H Pulse Oximetry 97 97 99 Oxygen Delivery Simple Face Mask Simple Face Mask Simple Face Mask Oxygen Flow Rate 8 8 10 05/27/22 14:50 05/27/22 15:10 05/27/22 15:25 Temperature 98.3 F 98.7 F Pulse Rate 92 79 83 Respiratory Rate 16 16 20 Blood Pressure 145/82 H 141/36 H 145/65 H Pulse Oximetry 93 95 96 Oxygen Delivery Room Air Oxygen Flow Rate 05/27/22 15:55 05/27/22 16:55 05/27/22 16:00 Temperature 98.3 F 97.9 F Pulse Rate 73 69 69 Respiratory Rate 18 18 Blood Pressure 150/72 H 156/78 H Pulse Oximetry 100 100 Oxygen Delivery Oxygen Flow Rate 05/27/22 20:54 05/28/22 06:00 05/27/22 22:00 Temperature 98 F 98.8 F Pulse Rate 74 86 74 Respiratory Rate 18 18 Blood Pressure 139/70 123/78 Pulse Oximetry 94 94 Oxygen Delivery Oxygen Flow Rate 05/28/22 08:00 05/28/22 11:05 05/28/22 12:00 Temperature 98.4 F 97.6 F Pulse Rate 57 L 95 73 Respiratory Rate 20 20 Blood Pressure 126/66 99/64 L Pulse Oximetry 95 95 Oxygen Delivery Oxygen Flow Rate Intake/Output Intake/Output: Intake & Output 05/25/22 05/26/22 05/27/22 05/28/22 23:59 23:59 23:59 22:59 Intake Total 1100 1730 840 Output Total 1775 100 Balance 1100 -45 740 Meds/Results Medications: Active Medications Generic Name Dose Route Start Last Admin Trade Name Freq PRN Reason Stop Dose Admin Brimonidine Tartrate 1 drop 05/27/22 09:00 05/28/22 11:09 Brimonidine Tartrate 0.2% Op Soln 5 Ml Btl EACH EYE 1 drop BID MART Administration Diclofenac Sodium 1 applic 05/27/22 06:53 Diclofenac Sodium 1% 100 Gm Gel (*Bkc) TOPICAL QID PRN Knee Pain Dorzolamide HCl 1 drop 05/27/22 09:00 05/28/22 11:09 Dorzolamide Hcl 2% Ophth Drops LEFT EYE 1 drop TID MART Administration Fentanyl Citrate 25 mcg 05/27/22 13:12 Fentanyl Citrate Inj (*Crx) 100 Mcg/2 Ml Vial IV PUSH Q2M PRN Pain Hydroxychloroquine Sulfate 400 mg 05/27/22 09:00 05/28/22 11:04 Hydroxychloroquine Sulfate 200 Mg Tablet PO 400 mg DAILY MART Administration Lactated Ringer's 1,000 mls @ 30 mls/hr 05/27/22 13:15 05/27/22 14:54 Lr - Lactated Ringers Iv IV CONT Infused .Q24H MART Infusion Latanoprost 1 drop 05/27/22 21:00 05/27/22 20:54 Latanoprost 0.005% Op Soln 2.5 Ml Btl EACH EYE 1 drop HS MART Administration Lisinopril 10 mg 05/27/22 09:00 05/28/22 11:04 Lisinopril 10 Mg Tablet PO 10 mg DAILY MART Administration Metoprolol Tartrate 50 mg 05/27/22 09:00 05/28/22 11:05 Metoprolol Tartrate 50 Mg Tab PO 50 mg Q12HR MRAT Administration Oxybutynin Chloride 10 mg 05/27/22 09:00 05/28/22 11:05 Oxybutynin Chloride Xl 5 Mg Tab.Er.24 PO 10 mg DAILY MART Administration Tamsulos
--- NOTE | 2022-05-28 15:27 | PC.NURSE ---
Pt is reporting to his that he has back pain, but has denied any pain for the nurse. Pt is sitting on side of bed and was educated about the reason for having a bed alarm. Pt is compliant about leaving alarm on. Pt participated and contributed in plan of care for the shift. Will continue to monitor pt.
--- NOTE | 2022-05-28 18:44 | PM.IMPN ---
Progress Note: A&P Assessment and Plan (1) COVID-19: Code(s): U07.1 - COVID-19 Status: Acute Assessment and Plan: Only symptom is diarrhea and that is improving 05/28 replace K as level was 3.3 Likely home 05/29 (2) Ureterolithiasis: Code(s): N20.1 - Calculus of ureter Status: Acute Assessment and Plan: Doing well post stent (3) Acute metabolic encephalopathy: Code(s): G93.41 - Metabolic encephalopathy Status: Acute Assessment and Plan: Resolved Subjective Date/time seen: 05/28/22 18:44 Interval history: Ureteral stent went well. Denied pain. Mentation has returned to baseline. Was not aware he had COVID-19. Only symptom has been diarrhea over the last few days. No cough or congestion or fever. Feeling a bit weak and tired. Diarrhea is improving. About 3 times a day with urgency. Wants to wait 1 more day before going home. Review of Systems Review of Systems: All systems reviewed & are unremarkable except as noted in HPI and below Exam Narrative: Alert elderly gentleman in no acute distress. Oriented to person place and time. Neck no JVD chest clear with normal effort heart regular rate without audible murmur abdomen protuberant but soft good bowel sounds nontender extremities no edema cyanosis or clubbing musculoskeletal without gross deformity visual inspection neurologic cranial nerves symmetric to visual inspection Objective Data Vital Signs Vital Signs: Vital Signs - 24 hr 05/27/22 20:54 05/28/22 06:00 05/27/22 22:00 Temperature 98 F 98.8 F Pulse Rate 74 86 74 Respiratory Rate 18 18 Blood Pressure 139/70 123/78 Pulse Oximetry 94 94 Oxygen Delivery 05/28/22 08:00 05/28/22 11:05 05/28/22 12:00 Temperature 98.4 F 97.6 F Pulse Rate 57 L 95 73 Respiratory Rate 20 20 Blood Pressure 126/66 99/64 L Pulse Oximetry 95 95 Oxygen Delivery 05/28/22 11:05 05/28/22 16:00 Temperature 99.3 F Pulse Rate 104 H Respiratory Rate 20 Blood Pressure 119/80 Pulse Oximetry 96 Oxygen Delivery Room Air Intake/Output Intake/Output: Intake & Output 05/25/22 05/26/22 05/27/22 05/28/22 23:59 23:59 23:59 22:59 Intake Total 1100 1730 1830 Output Total 1775 100 Balance 1100 -45 1730 Meds/Results Medications: Active Medications Generic Name Dose Route Start Last Admin Trade Name Ney PRN Reason Stop Dose Admin Brimonidine Tartrate 1 drop 05/27/22 09:00 05/28/22 18:33 Brimonidine Tartrate 0.2% Op Soln 5 Ml Btl EACH EYE 1 drop BID MART Administration Diclofenac Sodium 1 applic 05/27/22 06:53 Diclofenac Sodium 1% 100 Gm Gel (*Bkc) TOPICAL QID PRN Knee Pain Dorzolamide HCl 1 drop 05/27/22 09:00 05/28/22 18:33 Dorzolamide Hcl 2% Ophth Drops LEFT EYE 1 drop TID MART Administration Fentanyl Citrate 25 mcg 05/27/22 13:12 Fentanyl Citrate Inj (*Crx) 100 Mcg/2 Ml Vial IV PUSH Q2M PRN Pain Hydroxychloroquine Sulfate 400 mg 05/27/22 09:00 05/28/22 11:04 Hydroxychloroquine Sulfate 200 Mg Tablet PO 400 mg DAILY MART Administration Lactated Ringer's 1,000 mls @ 30 mls/hr 05/27/22 13:15 05/27/22 14:54 Lr - Lactated Ringers Iv IV CONT Infused .Q24H MART Infusion Latanoprost 1 drop 05/27/22 21:00 05/27/22 20:54 Latanoprost 0.005% Op Soln 2.5 Ml Btl EACH EYE 1 drop HS MART Administration Lisinopril 10 mg 05/27/22 09:00 05/28/22 11:04 Lisinopril 10 Mg Tablet PO 10 mg DAILY MART Administration Metoprolol Tartrate 50 mg 05/27/22 09:00 05/28/22 11:05 Metoprolol Tartrate 50 Mg Tab PO 50 mg Q12HR MART Administration Oxybutynin Chloride 10 mg 05/27/22 09:00 05/28/22 11:05 Oxybutynin Chloride Xl 5 Mg Tab.Er.24 PO 10 mg DAILY MART Administration Tamsulosin HCl 0.4 mg 05/27/22 21:00 05/27/22 20:54 Tamsulosin Hcl 0.4 Mg Capsule PO 0.4 mg HS MART Administration Timolol Maleate 1 drop
[2022-05-28] MEDS: TAMSULOSIN HCL 0.4 MG CAPSULE PO (21:23)
[2022-05-28] MEDS: POTASSIUM CHLORIDE 20 MEQ TABLET 40 MEQ PO (21:23)
[2022-05-28] MEDS: LATANOPROST 0.005% OP SOLN 2.5 ML BTL 1 DROP EACH EYE (21:24)
[2022-05-29] VITALS: BP 116/71; PULSE 69; RESP 20; TEMP 36.5; O2SAT 94
[2022-05-29 06:15] VITALS: BP 113/70; PULSE 66; RESP 20; TEMP 36.5; O2SAT 94
[2022-05-29 06:31] LABS: Hematocrit 39.3 % (42.0-52.0); Hemoglobin 13.2 g/dL (14.0-18.0); Mean Corpuscular HGB Conc 33.6 g/dl (32-36); Mean Corpuscular Hemoglobin 34.6 pg (26-34); Mean Corpuscular Volume 103.1 fl (80-100); Platelet Count Result 156 k/mm3 (150-375); Red Blood Count 3.81 M/mm3 (4.6-6.20); Red Cell Distribution Width 12.8 % (11.5-14.5); White Blood Count 3.5 K/mm3 (4.5-10.0)
[2022-05-29 06:36] LABS: Anion Gap 16 mmol/L (8-16); Blood Urea Nitrogen 15 mg/dL (9-20); Calcium 8.4 mg/dL (8.4-10.2); Carbon Dioxide 23 mmol/L (22-30); Chloride 103 mmol/L (98-107); Estimated CRCL calculation 63 ml/min; Estimated Glomerular Filt Rate > 60; Glucose 109 mg/dL (65-110); Potassium 3.6 mmol/L (3.4-5.0); Sodium 142 mmol/L (137-145)
[2022-05-29 08:39] LABS: Glucose Point of Care 126 mg/dl (65-105)
[2022-05-29] MEDS: HYDROXYCHLOROQUINE SULFATE 200 MG TABLET 400 MG PO (09:42)
[2022-05-29] MEDS: lisinopriL 10 MG TABLET PO (09:43)
[2022-05-29] MEDS: BRIMONIDINE TARTRATE 0.2% OP SOLN 5 ML BTL 1 DROP EACH EYE (09:51)
[2022-05-29] MEDS: DORZOLAMIDE HCL 2% OPHTH DROPS 1 DROP LEFT EYE ×2 (09:51→12:27)
[2022-05-29] MEDS: TIMOLOL MALEATE 0.5% OP SOLN 5 ML BOTTLE 1 DROP EACH EYE (09:52)
[2022-05-29 09:54] VITALS: PULSE 67
[2022-05-29] MEDS: METOPROLOL TARTRATE 50 MG TAB PO (09:54)
--- NOTE | 2022-05-29 11:29 | PM.DS ---
DS: Admitting Diagnosis Discharge Date May 29, 2022 Admitting Diagnosis ureterolithiasis DS: Discharge Diagnosis Discharge Diagnosis (1) COVID-19: Code(s): U07.1 - COVID-19 Status: Acute Assessment and Plan: asymptomatic (2) Ureterolithiasis: Code(s): N20.1 - Calculus of ureter Status: Acute Assessment and Plan: Doing well post stent follow-up with urology (3) Acute metabolic encephalopathy: Code(s): G93.41 - Metabolic encephalopathy Status: Acute Assessment and Plan: Resolved DS: Summary Hospital Course Hospital Course: patient was admitted for a ureterolithiasis. He had a stent placed. Did well postop can follow-up with Urology. Otherwise to note he had asymptomatic COVID Time Spent with Patient Time attestation: Total time spent providing and/or coordinating discharge services: Exam Narrative: Alert elderly gentleman in no acute distress. Oriented to person place and time. Neck no JVD chest clear with normal effort heart regular rate without audible murmur abdomen protuberant but soft good bowel sounds nontender extremities no edema cyanosis or clubbing musculoskeletal without gross deformity visual inspection neurologic cranial nerves symmetric to visual inspection DS: Data Data Completed and Pending Labs on day of discharge: Labs from last 24 hours 05/29/22 05/29/22 05/29/22 08:20 05:38 05:38 WBC 3.5 L RBC 3.81 L Hgb 13.2 L Hct 39.3 L MCV 103.1 H MCH 34.6 H MCHC 33.6 RDW 12.8 Plt Count 156 MPV 9.0 Sodium 142 Potassium 3.6 Chloride 103 Carbon Dioxide 23 Anion Gap 16 BUN 15 Creatinine 1.10 Estim Creat Clear Calc 63 Estimated GFR > 60 Glucose 109 POC Capillary Glucose 126 H Calcium 8.4 Preliminary micro results at discharge 05/26/22 18:28 Blood Culture - Preliminary Blood 05/26/22 18:27 Blood Culture - Preliminary Blood Discharge Plan Discharge Attending physician on discharge: Shant Matt Consulting providers: Pablo Walker ; Lisa Lovett Discharging Clinician: Shant Matt Patient Disposition: Home Health Service Activity: no preference Diet: as tolerated Discharge Instructions: Per Care Coordination Patient current with [facility], please resume Home Health services for RN, PT,OT at discharge, [phone] RN please fax completed discharge instructions to [phone] Patient Instructions: Antibiotic Form Stand Alone Forms: General Discharge Information Follow-up/Referrals: Bubba Cho MD [Primary Care Provider] - Pablo Walker MD [Physician] - Discharge Medications: Continued hydroxychloroquine 200 mg tablet 400 mg PO DAILY Qty: 180 1RF prednisone 2.5 mg tablet 2.5 mg PO DAILY Qty: 40 0RF Rx Instructions: take 2 tabs BID for 5 days, 1 tab BID for 5 days, 1 tab qd for 5 days and then 1 tab qod for 5 doses and stop oxybutynin chloride 10 mg tablet extended release 24hr 10 mg PO DAILY travoprost 0.004 % drops 1 drp EACH EYE HS tamsulosin 0.4 mg capsule 0.4 mg PO DAILY Rx Instructions: TAKES AT HS lisinopril 10 mg tablet 10 mg PO DAILY dorzolamide 2 % drops 1 drp LEFT EYE TID brimonidine-timolol [Combigan] 0.2-0.5 % drops 1 drp EACH EYE BID diclofenac sodium [Arthritis Pain (diclofenac)] 1 % gel 1 ea TOPICAL QID PRN (Reason: Pain) Hold Instructions: Resume on 04/30/22. metoprolol tartrate 50 mg tablet 50 mg PO BID Qty: 180 1RF Date of admission: 05/27/22 08:23 Primary Care Provider: Bubba Cho Admitting Provider: Brittany Lin V. Attending physician on admission: Brittany Lin V. Condition: Stable
== END 2022-05-29 14:10 | disposition home or self-care (01) | DRG 659 ==
LOC: ANHED 21:26 → ANH3MEDSUR 05-27 00:18
PROVIDERS: Family Medicine; Physician Assistant; Urology; Admitting Provider Internal Medicine; Emergency Provider Preventive Medicine Aerospace Medicine; PCP Family Medicine; Visit Provider Chiropractor
PROC: 0T778DZ Dilation of Left Ureter with Intraluminal Device, Via Natural or Artificial Opening Endoscopic (ICD-10-PCS; CPT 52352; principal; 2022-05-27 13:00)
DX: N20.2 Calculus of kidney with calculus of ureter (principal); G93.41 Metabolic encephalopathy; U07.1 COVID-19; H34.8122 Central retinal vein occlusion, left eye, stable; I10 Essential (primary) hypertension; H40.9 Unspecified glaucoma; E29.1 Testicular hypofunction; M19.90 Unspecified osteoarthritis, unspecified site; N32.81 Overactive bladder; M06.9 Rheumatoid arthritis, unspecified; E55.9 Vitamin D deficiency, unspecified; R73.03 Prediabetes; I48.0 Paroxysmal atrial fibrillation; E66.9 Obesity, unspecified; Z85.46 Personal history of malignant neoplasm of prostate; Z86.73 Personal history of transient ischemic attack (TIA), and cerebral infarction without residual deficits; Z90.49 Acquired absence of other specified parts of digestive tract; Z87.891 Personal history of nicotine dependence; Z68.33 Body mass index [BMI] 33.0-33.9, adult
CPT/HCPCS: 36415; 70450; 71045; 74176; 74420; 80048; 80053; 81001; 82948; 83605; 83690; 85025; 85027; 85610; 85730; 86140; 87040; 87502; 93005; 96361; 96374; 99285; A9270; C1758; C1769; C1887; C2617; G0378; J0131; J0690; J2405; J2704; J7030; J7040; J7120; U0003; U0005

== ENCOUNTER 2022-07-19 09:20 | Outpatient (CLI) | payer MEDICARE, SELFPAY ==
--- NOTE | ~2022-07-19 | XR_ITS ---
Supine and upright views of the abdomen Clinical history: Prostate cancer COMPARISON: 05/15/2022 Findings: Bowel gas pattern is nonspecific. Left ureteral stent in place. No evidence for obstruction or free air. Left lower pole renal stone present, measuring 8 mm. Stable degenerative changes in the lumbar spine. Impression: Left ureteral stent. Left lower pole probable renal stone measuring 8 mm. Second renal stone seen on prior exam not well s een, possibly at the left renal pelvis region. Reviewed, dictated and finalized at location . [facility] Impression: Left ureteral stent. Left lower pole probable renal stone measuring 8 mm. Second renal stone seen on prior exam not well seen, possibly at the left renal pelvis region.
== END 2022-07-19 09:21 | disposition home or self-care (01) ==
PROVIDERS: PCP Family Medicine; Visit Provider Urology
DX: C61 Malignant neoplasm of prostate (principal)
CPT/HCPCS: 74018

== ENCOUNTER 2022-08-14 13:18 | Outpatient (CLI) | payer MEDICARE, SELFPAY ==
--- NOTE | ~2022-08-14 | XR_ITS ---
EXAM: XR abdomen/kub 1V DATE: 08/14/2022 13:46 HISTORY: LEFT URETERAL STONE, 1 MONTH F/U LITHO . COMPARISON: 07/11/[address] abdomen pelvis 05/26/2022. FINDINGS: Left ureteral stent, in good position Clear lung bases. Normal bowel gas pattern. No organ omegaly. No multiple pelvic phleboliths. Multiple calcifications aligned along the pathway of the uri nary stent. The 8 mm left lower pole calcification is no longer visualized. Multilevel degenerative d isc disease with large bridging osteophytes. Mild bilateral hip osteoarthritis. IMPRESSION: Multiple distal left ureteral calcifications. Reviewed, dictated and finalized at location K. NG CHAIR SEAT CUSHION TRIMMER
== END 2022-08-14 13:19 | disposition home or self-care (01) ==
PROVIDERS: PCP Family Medicine; Visit Provider Urology
DX: N20.1 Calculus of ureter (principal)
CPT/HCPCS: 36415; 74018; 83090

== ENCOUNTER 2022-08-14 14:08 | Outpatient (CLI) | payer MEDICARE, SELFPAY ==
[2022-08-17 20:24] LABS: Homocysteine 16.5 umol/L (<11.4)
== END 2022-08-14 14:09 | disposition home or self-care (01) ==
LOC: ANHLAB 14:10
PROVIDERS: PCP Family Medicine; Visit Provider Internal Medicine Hematology & Oncology
DX: I26.99 Other pulmonary embolism without acute cor pulmonale (principal)
CPT/HCPCS: 36415; 83090

== ENCOUNTER 2022-09-07 21:38 | Inpatient (IN) | payer MEDICARE, SELFPAY ==
--- NOTE | 2022-08-22 14:06 | PM.HPGS ---
History of Present Illness History of Present Illness Consent: Risks, benefits, and alternatives have been discussed and questions answered. Patient agrees to proceed with procedure. Chief complaint: left ureteral stone Narrative: Shant Zaman is a 76 year old male Well known does with a history of prostate cancer status post completion of pelvic radiation in 2021. In March 2022 he was also found to have a large stone in his left kidney and underwent left ESWL. The stone fragmented nicely but several fragments persist in the left ureter, prompting today's procedure. He is aware the risk of this procedure including postoperative hematuria, need for additional procedures and ureteral injury. Review of Systems Cardiovascular: Cardiovascular: Denies chest pain, Denies lightheadedness, Denies palpitations and Denies dyspnea Respiratory: Respiratory: Denies dyspnea Gastrointestinal: Gastrointestinal: Denies diarrhea, Denies nausea and Denies vomiting Genitourinary: Genitourinary: Denies hematuria and Denies dysuria Endocrine: Endocrine: Denies palpitations PMFSH Past Medical History Medical History Bacteremia (~10/2019) UTI with bacteremia, CNSS not saprophyticus. Khoury palsy (~2018) Chronic venous insufficiency of lower extremity COVID-19 Essential hypertension Glaucoma Gout Hypogonadism in male Uses testosterone gel. Kidney stones Left ureteral stone Osteoarthritis Overactive bladder Paroxysmal atrial fibrillation (~10/2019) associated with sepsis Pre-diabetes Hemoglobin A1c was 6.3% in April 2019. Prostate cancer Retinal vein occlusion of left eye Rheumatoid arthritis with rheumatoid factor of multiple sites without organ or systems involvement Transient ischemic attack (~2014) Ureterolithiasis Vitamin D deficiency Surgical History Surgical History History of appendectomy (~1958) History of cystoscopy (~05/2022) cystoscopy, left retrograde pyelography and left ureteral stent placement History of left cataract surgery (~2009) Hx of lithotripsy (~04/2022) Left ESWL Family History Family History Other Acute myocardial infarction Diabetes mellitus Heart disease Hypertension Social History Social History Social History: The patient lives in [place] with his . They have 3 sons and 1 daughter. His , Dariusz, is his emergency contact and he wishes to be a full code. He smoked up to 3 packs of cigarettes per day and quit 1995. No alcohol or drug abuse. 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 Smoking packs per day: 1.5 Smoking cigarettes per day: 30.0 Years smoked: 34 Smoking pack-years: 51.00 Smoking status: Former smoker Alcohol intake: former Alcohol use details: occasional glass of wine Substance use: never Lack of Transportation: No Lack of Food: Never True Current Housing: I Have Housing Concerned About Future Housing: No Difficulty Paying Gas/Electric Bills: No Difficulty Paying for Meds: No Currently Unemployed: No Education: High School Diploma/GED Difficulty w/ Childcare or Family Care: No Living arrangements: with family Additional living arrangements comments: - DARIUSZ Gender identity (if verbalized by the patient): Male Spiritual care concerns: No Agree to blood products: Yes Meds Home Medications and Allergies Home Medications Medication Instructions Recorded Confirmed Type brimonidine 0.2 %-timolol 0.5 % 1 drp EACH EYE BID 03/02/22 07/04/22 History eye drops (Combigan) diclofenac sodium 1 % topical gel 1 ea topical QID PRN Pain 03/02/22 07/04/22 History (Arthritis Pain (diclofenac)) dorzolamide 2 % eye drops 1 drp LEFT EYE TI
--- NOTE | 2022-08-29 13:33 | PC.NURSE ---
Report to the Outpatient Waiting Room, entrance under the green pavilion located off [facility], at time _1230 on date _09/07/22 . Planned Procedure Time: __1430 . Time changes happen often and if your time is changed the preop area will call you the afternoon before. - You and your visitor will be asked to self-screen and do not enter if you have any COVID symptoms. - Only one visitor is requested with a max of two and NO children visitors are allowed at this time. - The patient visitor may be requested to leave or wait in car when not with patient due to distancing restrictions. - A mask is optional within the hospital at this time. Patients may have clear liquids (water, carbonated beverages, clear teas, apple juice) until 3 hours prior to surgery with a maximum of 20 ounces. - No food from midnight until time of surgery - Infants may have breast milk until 4 hours before surgery, infant formula 6 hours prior to surgery. - Children will be allowed to drink immediately following surgery. If applicable, please bring a bottle or sippy cup to assist with drinking. Juice, water, soda, and popsicles are readily available. For infants on formula, please bring formula the day of surgery. Pacifiers are allowed. Take the following medications with a SIP of water the morning of surgery: ____EYE DROPS,METOPROLOL DO NOT STOP ANY OF YOUR OTHER PRESCRIPTION MEDICATIONS PRIOR TO SURGERY ?EXCEPT THE FOLLOWING Medications to discontinue per physician ____ALL VITAMINS/SUPPLEMENTS 3 DAYS PRE OP .LAST DOSE 09/04/22 Please no make-up, nail portuguese, hairspray, perfume, deodorant, or body powder the day of surgery. No jewelry (including any body piercings) or valuables the day of surgery, leave them at home. Please take a shower or bath the night before, or the morning of, surgery with an antibacterial soap. Wear comfortable, loose fitting clothing. Children are encouraged to wear pajamas. - Jewelry must be removed prior to entering the operating room. Rings and piercings that are not removed may be cut off. - The hospital will not accept responsibility for valuables. - Please leave all valuables, including medications, at home the day of surgery. If you are going home after surgery, a licensed escort car driver must drive you home. - NO public transportation without another adult if you receive anesthesia. - We recommend that an adult stay with you for 24 hours following discharge. - We also recommend that you do not drive, make important decision, drink alcoholic beverages, or take any drugs that were not prescribed by your health care provider for at least 24 hours after your discharge time. Follow any additional instructions given to you from your surgeon. If you or anyone in your household have experienced Covid symptoms in the past week, please notify your surgeon or the nurse liaison at the phone number below for possible testing. Telephone instructions given to __PATIENT and asked if any additional questions and then verbalized understanding. Patient advised to call surgeon office or pre surgery nurse liaison [phone] if any additional questions.
[2022-08-29 13:40] VITALS: BMI 35.9
--- NOTE | 2022-09-06 14:33 | WPDANESEPPF ---
Anes - Initial Pre Proc Eval Procedure: Operation Date: 09/07/22 14:30 Proposed Procedures p Cystoscopy, Left Ureteroscopy with Holmium Laser Lithotripsy, Left Stone Extraction, Possible Left Retrograde Pyelogram, Left Stent Replacement - Pablo Walker MD Date/Time: 09/06/22 14:33 Surgeon: Pablo Walker MD Pre Op Diagnosis: left ureteral stone Patient Data Age: 76 Gender: M Height: 1.78 m Weight: 113.5 kg Allergies Allergy/AdvReac Type Severity Reaction Status Date / Time No Known Drug Allergies Allergy Mild unknown Verified 08/29/22 13:19 Home Medications Medication Instructions Recorded Confirmed Type brimonidine 0.2 %-timolol 0.5 % 1 drp EACH EYE BID 03/02/22 09/07/22 History eye drops (Combigan) diclofenac sodium 1 % topical gel 1 ea topical QID PRN Pain 03/02/22 09/07/22 History (Arthritis Pain (diclofenac)) dorzolamide 2 % eye drops 1 drp LEFT EYE TID 03/02/22 09/07/22 History travoprost 0.004 % eye drops 1 drp EACH EYE HS 03/02/22 09/07/22 History metoprolol tartrate 50 mg tablet 50 mg PO BID #180 tabs 03/06/22 09/07/22 Rx hydroxychloroquine 200 mg tablet 400 mg PO DAILY #180 tabs 05/09/22 09/07/22 Rx lisinopril 10 mg tablet See Rx Instructions .Route 07/20/22 09/07/22 Rx .COMPLEX #90 tabs oxybutynin chloride 10 mg 10 mg PO DAILY #90 tabs 08/23/22 09/07/22 Rx tablet,extended release 24 hr cholecalciferol (vitamin D3) 125 125 mcg PO DAILY 08/29/22 09/07/22 History mcg (5,000 unit) capsule multivitamin (Daily Multi-Vitamin 1 tablet PO DAILY 08/29/22 09/07/22 History tablet) Patient hx anesthesia problems: none Family hx anesthesia problems: none Results Review: All pre-operative results and documents have been reviewed as part of the pre-operative evaluation. [facility] Past Medical History Medical History Bacteremia (~10/2019) UTI with bacteremia, CNSS not saprophyticus. Khoury palsy (~2018) Chronic venous insufficiency of lower extremity COVID-19 Essential hypertension Glaucoma Gout Hypogonadism in male Uses testosterone gel. Kidney stones Left ureteral stone Osteoarthritis Overactive bladder Paroxysmal atrial fibrillation (~10/2019) associated with sepsis Pre-diabetes Hemoglobin A1c was 6.3% in April 2019. Prostate cancer Retinal vein occlusion of left eye Rheumatoid arthritis with rheumatoid factor of multiple sites without organ or systems involvement Transient ischemic attack (~2014) Ureterolithiasis Vitamin D deficiency Surgical History Surgical History History of appendectomy (~1957) History of cystoscopy (~05/2022) cystoscopy, left retrograde pyelography and left ureteral stent placement History of left cataract surgery (~2009) Hx of lithotripsy (~04/2022) Left ESWL Family History Family History Other Acute myocardial infarction Diabetes mellitus Heart disease Hypertension Social History Social History Social History: The patient lives in [place] with his . They have 3 sons and 1 daughter. His , Vandana, is his emergency contact and he wishes to be a full code. He smoked up to 3 packs of cigarettes per day and quit 1995. No alcohol or drug abuse. 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
[2022-09-07] VITALS (17 sets, daily range): BP systolic 125–183; BP diastolic 62–99; PULSE 53–136; RESP 14–34; TEMP 36.1–39.1; O2SAT 93–100; BMI 36.0; BMI 34.2
--- NOTE | ~2022-09-07 | US_ITS ---
US renal BI 09/08/2022 14:07 Procedure: Realtime transabdominal ultrasound of the kidneys and bladder. Indication: Acute renal insufficiency. Kidney stones. Comparison: Ultrasound dated 10/27/[address] dated 05/26/2022 Findings: Renal echotexture is normal bilaterally without hydronephrosis, contour deforming mass or r enal calculus. The right kidney measures 12.6 cm and left kidney measures 12.7 cm. De Leon catheter pre sent in the bladder limits evaluation for bladder wall abnormality. Impression: 1: Unremarkable renal ultrasound. No stones, masses or hydronephrosis. Reviewed, dictated and finalized at location A. UMER LOAN SPECIALIST Impression: 1: Unremarkable renal ultrasound. No stones, masses or hydronephrosis.
--- NOTE | ~2022-09-07 | XR_ITS ---
EXAMINATION: XR chest PICC line INDICATION: PICC insertion TECHNIQUE: Portable AP chest at 1117 hours COMPARISON: 09/07/2022 FINDINGS: The lung bases are excluded from the examination. A right upper extremity PICC has been ins erted which ends with its tip in the proximal to midsuperior vena cava. There appear to be airspace o pacities of the partially imaged lung bases. There is no pneumothorax. IMPRESSION: 1. Right upper extremity PICC ending with its tip in the proximal to midsuperior vena cava. Reviewed, dictated and finalized at location B. ITY MANAGEMENT NURSE IMPRESSION: 1. Right upper extremity PICC ending with its tip in the proximal to midsuperio r vena cava.
--- NOTE | ~2022-09-07 | XR_ITS ---
EXAMINATION: XR retrograde pyelo w/stent LT DATE: 09/07/2022 15:57 INDICATION: Left internal ureteral stent placement TECHNIQUE: Fluoroscopic images from a left internal ureteral stent placement are submitted for review . 18 seconds of fluoroscopy time. FINDINGS: There is a left double-J internal ureteral stent projecting in expected position, with proximal [place] loop at the level of the renal pelvis and distal loop not imaged following deployment.. IMPRESSION: 1. Left internal ureteral stent placement. Please refer to real-time procedural findings for detail s. Reviewed, dictated and finalized at location A. STANT CASINO SHIFT MANAGER IMPRESSION: 1. Left internal ureteral stent placement. Please refer to real-time procedur al findings for details.
--- NOTE | ~2022-09-07 | XR_ITS ---
XR chest 1V 09/07/2022 21:15 Indication: Hypoxia Procedure: AP view of the chest Comparison: 05/26/2022 Findings: Borderline heart size. Left basilar airspace disease. No significant effusion or pneumothor ax. Right basilar atelectasis. Impression: 1: Left basilar airspace disease may represent atelectasis and/or pneumonia. Reviewed, dictated and finalized at location A. ERTY FIELD INSPECTOR Impression: 1: Left basilar airspace disease may represent atelectasis and/or pneumonia.
--- NOTE | ~2022-09-07 | CT_ITS ---
EXAMINATION: CT BRAIN W/O DATE: 09/07/2022 21:09 INDICATION: Altered mental status TECHNIQUE: Computed tomography (CT) of the head was performed without intravenous contrast. The dose- length product was 681.00 mGy-cm. Automated exposure control and iterative reconstruction technique w ere employed. COMPARISON: No prior studies for comparison. FINDINGS: There is generalized atrophy. There are scattered moderate periventricular and subcortical white matter changes, most likely related to small vessel ischemic disease (microangiopathy). There i s intracranial atherosclerosis. No ventriculomegaly or midline shift. Midline sagittal images demonstrate a normal corpus callosum, c raniovertebral junction and sella turcica. Basilar cisterns are patent. Paranasal sinuses and mastoids are pneumatized. No depressed skull fractures. IMPRESSION: 1. No acute intracranial abnormality. 2: Chronic age-related findings. Reviewed, dictated and finalized at location A. EL CAP SETTER
--- NOTE | 2022-09-07 06:44 | WPDHPUPDATE1 ---
History and Physical Update Update Date/Time: 09/07/22 06:44 History and Physical has been reviewed, including an updated exam of the patient. There are NO changes in the patient's condition. Risks, benefits, and alternatives have been discussed and questions answered. Patient agrees to proceed with procedure.
--- NOTE | 2022-09-07 06:54 | WPDHPUPDATE1 ---
History and Physical Update Update Date/Time: 09/07/22 06:54 History and Physical has been reviewed, including an updated exam of the patient. There are NO changes in the patient's condition. Risks, benefits, and alternatives have been discussed and questions answered. Patient agrees to proceed with procedure.
[2022-09-07] MEDS: LACTATED RINGERS 1,000 ML 30 ML IV CONT ×2 (13:00→20:39)
[2022-09-07] MEDS: ceFAZolin 2 GM/D5W 50 ML 2 GM/50 ML BAG IVPB (14:37)
--- NOTE | 2022-09-07 15:49 | W.PM.PROC2 ---
Procedure Note - Detailed Date of Procedure 09/07/22 Pre-op Diagnosis Left ureteral stones Post-op Diagnosis Same Procedure Performed Cystoscopy, left retrograde pyelography, left ureteroscopy with laser lithotripsy and stone extraction, left ureteral stent replacement Surgeon Pablo Walker MD Anesthesia General Description of Procedure patient is brought to the operative suite was prepped draped in routine sterile fashion while in dorsal lithotomy position after the uneventful induction of a general LMA anesthetic. Cystoscopy is undertaken with a 19 F rigid cystoscope. The tip of the indwelling stent is grasped and brought to the urethral meatus. A 0.035 in glidewire was advanced in the left renal pelvis. The distal ureter was dilated with an 8 F 10 F dilator and a 2.035nd glidewire is passed as a safety wire. Ureteroscopy was 1st undertaken with a short tapered semi-rigid ureteral scope. There were several residual stone fragments which were fractured using a 200 micron holmium laser fiber and a dusting technique. All fragments in the distal ureter extracted with a disposable stone basket. I then replaced the rigid ureteral scope with a 7.5 F flexible ureteral scope. There are couple sizable fragments in the proximal ureter which were chased back into the kidney. These are fractured/dusted using the same holmium laser fiber. All sizable fragments had been extracted with baskets. Small fragments should pass easily. I did replace a 4.8 F variable length stent with the proximal coil positioned in the renal pelvis and distal coil in the bladder. Scopes and wires removed. The patient tolerated the procedure well. Drains Yes Packing No Pathology Yes Complications No immediate complications Condition Stable
[2022-09-07] MEDS: MEPERIDINE HCL INJ (*CRX) 50 MG/ML AMPUL 25 MG IV PUSH (17:45)
[2022-09-07] MEDS: ONDANSETRON INJ 4 MG/2 ML VIAL IV PUSH (17:55)
--- NOTE | 2022-09-07 18:44 | PM.IMHP ---
H&P: HPI History of Present Illness Date/Time: 09/07/22 18:44 Chief Complaint: Dysuris Narrative: Patient well known to me status post ESWL for a large renal calculus with subsequent ureteral fragments that will pass. Earlier today he underwent ureteroscopy with laser lithotripsy and stone extraction. Postoperatively he has had intense dysuria with frequency urgency and generalized weakness. In light of that we opted for overnight observation. Review of Systems Cardiovascular: Cardiovascular: Denies chest pain, Denies lightheadedness, Denies palpitations and Denies dyspnea Respiratory: Respiratory: Denies dyspnea Gastrointestinal: Gastrointestinal: Denies diarrhea, Denies nausea and Denies vomiting Genitourinary: Genitourinary: Denies hematuria, Reports dysuria and Reports urinary urgency Endocrine: Endocrine: Denies palpitations PMFSH Past Medical History Medical History Bacteremia (~10/2019) UTI with bacteremia, CNSS not saprophyticus. Khoury palsy (~2018) Chronic venous insufficiency of lower extremity COVID-19 Essential hypertension Glaucoma Gout Hypogonadism in male Uses testosterone gel. Kidney stones Left ureteral stone Osteoarthritis Overactive bladder Paroxysmal atrial fibrillation (~10/2019) associated with sepsis Pre-diabetes Hemoglobin A1c was 6.3% in April 2019. Prostate cancer Retinal vein occlusion of left eye Rheumatoid arthritis with rheumatoid factor of multiple sites without organ or systems involvement Transient ischemic attack (~2014) Ureterolithiasis Vitamin D deficiency Surgical History Surgical History History of appendectomy (~1957) History of cystoscopy (~05/2022) cystoscopy, left retrograde pyelography and left ureteral stent placement History of left cataract surgery (~2009) Hx of lithotripsy (~04/2022) Left ESWL Family History Family History Other Acute myocardial infarction Diabetes mellitus Heart disease Hypertension Social History Social History Social History: The patient lives in [place] with his . They have 3 sons and 1 daughter. His , Dariusz, is his emergency contact and he wishes to be a full code. He smoked up to 3 packs of cigarettes per day and quit 1995. No alcohol or drug abuse. 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 Smoking packs per day: 1.5 Smoking cigarettes per day: 30.0 Years smoked: 34 Smoking pack-years: 51.00 Smoking status: Former smoker Tobacco type: cigarettes Smoking end date: 07/23/11 Alcohol intake: former Alcohol use details: occasional glass of wine Substance use: never Lack of Transportation: No Lack of Food: Never True Current Housing: I Have Housing Concerned About Future Housing: No Difficulty Paying Gas/Electric Bills: No Difficulty Paying for Meds: No Currently Unemployed: No Education: High School Diploma/GED Difficulty w/ Childcare or Family Care: No Living arrangements: with family Additional living arrangements comments: - DARIUSZ Gender identity (if verbalized by the patient): Male Spiritual care concerns: No Agree to blood products: Yes Meds Home Medications and Allergies Home Medications Medication Instructions Recorded Confirmed Type brimonidine 0.2 %-timolol 0.5 % 1 drp EACH EYE BID 03/02/22 09/07/22 History eye drops (Combigan) diclofenac sodium 1 % topical gel 1 ea topical QID PRN Pain 03/02/22 09/07/22 History (Arthritis Pain (diclofenac)) dorzolamide 2 % eye drops 1 drp LEFT EYE TID 03/02/22 09/07/22 History travoprost 0.004 % eye drops 1 drp EACH EYE HS 03/02/22 09/07/22 History metoprolol tartrate 50 mg tablet 50 mg PO BID #180 tabs 03/06/22 09/07/22 Rx
[2022-09-07] MEDS: fentaNYL CITRATE INJ (*CRX) 100 MCG/2 ML VIAL 25 MCG IV PUSH (18:49)
--- NOTE | 2022-09-07 18:51 | SUR.PHASEII ---
[address] chao on pt condition, dr chao at bedside to see pt and after discussing with pt and family, it was decided to keep pt overnight for safety reasons.
--- NOTE | 2022-09-07 19:48 | SUR.PHASEII ---
Patient appears unable to follow instructions. Has movement to all extremeties but unable to assess strength. Is not answering questions.
--- NOTE | 2022-09-07 20:08 | SUR.PHASEI ---
Due to delays getting to floor room and patient's condition I moved him back to the pacu.
[2022-09-07 20:23] LABS: Glucose Point of Care 170 mg/dl (65-105)
--- NOTE | 2022-09-07 20:24 | ECG_ITS ---
Measurements Intervals [place]a Rate: 131 P: 2 OH: 182 QRS: 12 QRSD: 156 T: 2 QT: 391 QTc: 579 Interpretive Statements ATRIAL TACHYCARDIA SUSPECT ATYPICAL ATRIAL FLUTTER fREQUENT VENTRICULAR PREMATURE COMPLEXES INDETERMINATE AXIS RIGHT BUNDLE BRANCH BLOCK [120+ ms QRS DURATION, UPRIGHT V1, 40+ ms S IN I/aVL/V4/V5/V6] ABNORMAL ECG COMPARED TO ECG 05/26/2022 18:55:44 THIS ECG IS MORE SUGGESTIVE OF ATRIAL FLUTTER THAN SINUS RHYTHM Electronically Signed On 09-08-2022 15:16:26 ENGINE BUILDER by Shant Figueroa M.D.
--- NOTE | 2022-09-07 20:40 | PM.IMCN ---
Assessment and Plan Assessment and plan (1) Sepsis: Qualifiers: Sepsis type: sepsis due to unspecified organism Sepsis acute organ dysfunction status: with acute organ dysfunction Severe sepsis acute organ dysfunction type: encephalopathy Code(s): A41.9 - Sepsis, unspecified organism Status: Acute (2) Left ureteral calculus: Code(s): N20.1 - Calculus of ureter Status: Acute (3) Metabolic encephalopathy: Code(s): G93.41 - Metabolic encephalopathy Status: Acute (4) Pre-diabetes: Code(s): R73.03 - Prediabetes Status: Acute (5) Acute kidney injury: Code(s): N17.9 - Acute kidney failure, unspecified Status: Acute (6) Lactic acidosis: Code(s): E87.20 - Acidosis, unspecified Status: Acute Plan Patient has sepsis likely due to pyelonephritis and or infected kidney stone. Given the patient's onset of symptoms immediately after manipulation of retained ureteral stones and stent placement. The patient was initially given Ancef preoperatively. At this time will change antibiotic therapy to Rocephin. If symptoms persist despite Rocephin may need to broaden antibiotic coverage to Zosyn. Urine cultures pending. Blood cultures are pending. Patient meets sepsis criteria at time of my evaluation with tachycardia, tachypnea, lactic acidosis, acute metabolic encephalopathy and fever. Patient also has mottling of the extremities. He received 2 L of LR in bolus in the postop area and another L of normal saline to complete 30 mL/kilos fluid bolus. The patient had somewhat decreased urine output and maintenance fluids were increased to 200 mL an hour. With increased fluids patient's tachypnea and tachycardia have improved. Perfusion has also improved. Lactic acidosis remains unchanged. Will repeat lactic acid level in a.m.. Patient meets borderline criteria for acute kidney injury likely due to recent instrumentation and hypoperfusion given sepsis. Will hold the patient's ALIDA-inhibitor. Will monitor urine output closely. Will repeat BMP. Sepsis is likely due to urinary source however will check COVID flu and RSV PCR to rule out respiratory source given the atelectasis on chest x-ray and new hypoxia. However I think the patient's hypoxia is most likely due to atelectasis given his shallow respiratory effort. The patient does have history of pre diabetes and is currently euglycemic. Will check Accu-Cheks q.6 hours while NPO. Patient is NPO due to encephalopathy. Hypoglycemia or protocol has been ordered. 65 minute spent in critical care activities. Due to a high probability of clinically significant, life threatening deterioration, the patient required my highest level of preparedness to intervene emergently and I personally spent this critical care time directly and personally managing the patient. This critical care time included obtaining a history; examining the patient; pulse oximetry; ordering and review of studies; arranging urgent treatment with development of a management plan; evaluation of patient's response to treatment; frequent reassessment; and discussions with other providers. It was exclusive of separately billable procedures and treating other patients and teaching time. Please see Assessment and Plan section and the rest of the note for further information on patient assessment and treatment. HPI Data of Consult Consult date: 09/08/22 Requesting Physician: Pablo Walker MD Primary Care Provider: Campbell Cho MD Consult Narrative Narrative: Shant Zaman is a 76 year old male with a past medical history of prostate cancer, rheumatoid arthritis, essential l hypertension, paroxysmal atrial fibrillation, pre diabetes and urolithiasis who presented to the hospital for scheduled lithotripsy and ureteroscopy with stent placement in the left ureter with Urology. The patient had had an initial lithotripsy in April for 16 mm
[2022-09-07 21:13] LABS: Basophils Percent Auto 0.4 % (0.2-1.2); Eosinophils Percent Auto 0.6 % (0-4.4); Hematocrit 41.8 % (42.0-52.0); Hemoglobin 13.9 g/dL (14.0-18.0); Immature Granulocyte Absolute 0.03 K/mm3 (0.00-0.031); Immature Granulocyte Percent A 0.6 % (0-0.5); Lymphocytes Absolute Auto 0.07 K/mm3 (0.9-3.2); Lymphocytes Percent Auto 1.3 % (18.3-44.2); Mean Corpuscular HGB Conc 33.3 g/dl (32-36); Mean Corpuscular Hemoglobin 35.2 pg (26-34); Mean Corpuscular Volume 105.8 fl (80-100); Mean Platelet Volume 9.2 fl (7.4-10.4); Monocytes Absolute Auto 0.1 K/mm3 (0.1-0.6); Monocytes Percent Auto 1.3 % (2.6-8.5); Neutrophils Absolute Auto 5.2 K/mm3 (1.3-6.7); Neutrophils Percent Auto 95.8 % (45.5-73.1); Platelet Count Result 139 k/mm3 (150-375); Red Blood Count 3.95 M/mm3 (4.6-6.20); Red Cell Distribution Width 13.7 % (11.5-14.5); White Blood Count 5.4 K/mm3 (4.5-10.0)
[2022-09-07 21:26] LABS: Alanine Aminotransferase 28 U/L (6-50); Albumin Level 3.8 g/dL (3.5-5.1); Alkaline Phosphatase 77 U/L (38-126); Anion Gap 7 mmol/L (8-16); Aspartate Amino Transferase 33 U/L (17-59); Bilirubin,Total 1.2 mg/dL (0.2-1.3); Blood Urea Nitrogen 17 mg/dL (9-20); Calcium 8.3 mg/dL (8.4-10.2); Carbon Dioxide 25 mmol/L (22-30); Chloride 107 mmol/L (98-107); Estimated CRCL calculation 53 ml/min; Estimated Glomerular Filt Rate 54; Glucose 151 mg/dL (65-110); Potassium 3.6 mmol/L (3.4-5.0); Sodium 139 mmol/L (137-145)
[2022-09-07 21:27] LABS: Lactic Acid Reflex 3.4 mmol/L (0.7-2.0)
[2022-09-07 21:29] LABS: Ovalocytes 1+ (NORMAL); Platelet Estimate Adequate (Adequate); Schistocytes None Seen (NORMAL)
--- NOTE | 2022-09-07 21:33 | ADMGEN ---
This patient, Shant Zaman, was admitted to imu at 2113 on 09/07/22, post op surgical procedure from pacu-. Patient/family oriented to hospital policies and general routines including ID bracelet, bed and alarms, visiting hours, pain management, procedures, bathroom and other care routines, personal items, smoking policy, room service/diet, and visiting hours. Information on how to activate the Rapid Response Team has been discussed. Patient/Family are encouraged to report perceived risks to care and to ask questions if they do not understand what they are told or what they should do.
[2022-09-07] MEDS: LACTATED RINGERS 1,000 ML 999 ML IV CONT ×2 (21:35→21:47)
--- NOTE | 2022-09-07 21:35 | SUR.PHASEI ---
At [address], the chest xy, then to room 211 with monitor. Patient starting to respond better after fluids and tylenol. Report given to IMU nurse and handed off care of patient.
[2022-09-07 21:45] LABS: Erythrocyte Sedimentation Rate 27 mm/hr (0-20)
[2022-09-07 22:03] LABS: CRP 1.8 mg/dL (<1.0)
[2022-09-07] MEDS: SODIUM CHLORIDE 0.9% IV 1,000 ML 999 ML IV CONT (22:46)
[2022-09-07] MEDS: LATANOPROST 0.005% OP SOLN 2.5 ML BTL 1 DROP EACH EYE (22:48)
[2022-09-07] MEDS: BRIMONIDINE TARTRATE 0.2% OP SOLN 5 ML BTL 1 DROP EACH EYE (22:48)
[2022-09-07] MEDS: TIMOLOL MALEATE 0.5% OP SOLN 5 ML BOTTLE 1 DROP EACH EYE (22:49)
[2022-09-07] MEDS: DORZOLAMIDE HCL 2% OPHTH DROPS 1 DROP LEFT EYE (22:49)
[2022-09-07] MEDS: DEXTROSE 5%/LACTATED RINGERS 1,000 ML 125 ML IV CONT (23:44)
[2022-09-08] VITALS (24 sets, daily range): BP systolic 80–116; BP diastolic 48–70; PULSE 94–127; RESP 14–36; TEMP 36.5–38.7; O2SAT 91–98
[2022-09-08 00:10] LABS: Reflex Lactic Acid Yes or No Add Lactic
[2022-09-08 01:49] LABS: Lactic Acid 3.5 mmol/L (0.7-2.0)
[2022-09-08 02:02] LABS: Glucose Point of Care 123 mg/dl (65-105)
[2022-09-08 05:02] LABS: Mean Corpuscular HGB Conc 32.5 g/dl (32-36); Mean Corpuscular Hemoglobin 34.9 pg (26-34); Mean Corpuscular Volume 107.2 fl (80-100); Mean Platelet Volume 9.5 fl (7.4-10.4); Platelet Count Result 136 k/mm3 (150-375); Red Blood Count 3.73 M/mm3 (4.6-6.20); Red Cell Distribution Width 13.8 % (11.5-14.5); White Blood Count 11.7 K/mm3 (4.5-10.0)
[2022-09-08 05:13] LABS: Anion Gap 8 mmol/L (8-16); Blood Urea Nitrogen 18 mg/dL (9-20); Calcium 7.9 mg/dL (8.4-10.2); Carbon Dioxide 25 mmol/L (22-30); Chloride 104 mmol/L (98-107); Estimated CRCL calculation 46 ml/min; Estimated Glomerular Filt Rate 45; Glucose 165 mg/dL (65-110); Potassium 3.6 mmol/L (3.4-5.0); Sodium 137 mmol/L (137-145)
--- NOTE | 2022-09-08 05:36 | PC.NURSE ---
seen patient just before 4 am. patient had good color, was more talkative, even thought he wasn't making much sense. patient was able to move arm by self and was scratching his nose. around 520 this morning went to check on fluids and patient is flushed, diaphoretic, almost non-talkative again. unable to lift arms again, shallow breathing again, running a temp of 101.6. dr castro is aware and is placing orders right now. iv tylenol is to be given. temperature turned down in room and top covers removed.
[2022-09-08] MEDS: DEXTROSE 5%/LACTATED RINGERS 1,000 ML 200 ML IV CONT (05:58)
[2022-09-08] MEDS: DEXTROSE 5% IVPB (06:40)
[2022-09-08] MEDS: GENTAMICIN SULFATE IVPB (06:40)
--- NOTE | 2022-09-08 07:00 | WPDUROPN2 ---
Progress Note: A&P Assessment and Plan (1) Acute kidney injury: Code(s): N17.9 - Acute kidney failure, unspecified Status: Acute (2) Lactic acidosis: Code(s): E87.20 - Acidosis, unspecified Status: Acute (3) Sepsis: Qualifiers: Sepsis type: sepsis due to unspecified organism Sepsis acute organ dysfunction status: with acute organ dysfunction Severe sepsis acute organ dysfunction type: encephalopathy Code(s): A41.9 - Sepsis, unspecified organism Status: Acute (4) Left ureteral calculus: Code(s): N20.1 - Calculus of ureter Status: Acute Assessment and Plan: Likely sepsis d/t UTI following extensive ureteroscopy/stone manipulation yesterday. EKG and Head CT unremarkable last night. Mental status and shaking chills much improved overnight. Appreciate Dr. Nieto's assistance. Continue Ceftriaxone/supportive care pending cultures. Subjective Subjective Date/Time Seen: 09/08/22 07:00 Mental status much improved overnight - not quite back to norm yet, though. No focal neurological deficits. Some difficulty with speech. Review of Systems Review of Systems: ROS unobtainable: Yes unobtainable due to mental status Exam Const: General: no acute distress Resp: Effort & Inspection: normal respiratory effort GI: Inspection: non-distended GI Palp: No abdominal tenderness and No Guarding due to palpation present (GI) Auscultation: normal bowel sounds Urinary Catheter: Urinary Catheter: patent and draining and urine clear Neuro: General: oriented to person, oriented to place and oriented to time Speech: Abnormal speech present (slow to form sentences) Motor exam (neuro): 5/5 motor strength present throughout Pupils: Normal pupillary reactivity/response: right and left Objective Data Vital Signs Vital Signs: Vital Signs - 24 hr 09/07/22 12:29 09/07/22 15:55 09/07/22 16:10 Temperature 97.0 F L 97 F L Pulse Rate 53 L 72 71 Respiratory Rate 20 14 14 Blood Pressure 145/65 H 125/99 H 148/86 H Pulse Oximetry 96 97 100 Oxygen Delivery Room Air Simple Face Mask Simple Face Mask Oxygen Flow Rate 6 6 09/07/22 16:25 09/07/22 16:40 09/07/22 17:10 Temperature Pulse Rate 80 83 91 Respiratory Rate 21 H 16 16 Blood Pressure 132/91 H 144/85 H 155/88 H Pulse Oximetry 93 Oxygen Delivery Room Air Room Air Room Air Oxygen Flow Rate 09/07/22 17:40 09/07/22 18:10 09/07/22 18:40 Temperature Pulse Rate 97 95 63 Respiratory Rate 16 16 16 Blood Pressure 146/71 H 137/80 158/62 H Pulse Oximetry 98 96 Oxygen Delivery Room Air Room Air Nasal Cannula Oxygen Flow Rate 2 09/07/22 19:10 09/07/22 19:40 09/07/22 20:09 Temperature 99.9 F H 102.4 F H Pulse Rate 68 98 136 H Respiratory Rate 16 28 H 34 H Blood Pressure 171/85 H 183/97 H 168/85 H Pulse Oximetry 95 95 93 Oxygen Delivery Nasal Cannula Nasal Cannula Nasal Cannula Oxygen Flow Rate 3 2 4 09/07/22 20:24 09/07/22 20:40 09/07/22 21:13 Temperature 100.7 F H Pulse Rate 94 133 H 75 Respiratory Rate 32 H 33 H 20 Blood Pressure 140/87 138/82 128/68 Pulse Oximetry 93 94 94 Oxygen Delivery Nasal Cannula Nasal Cannula Oxygen Flow Rate 4 4 09/07/22 21:36 09/07/22 20:40 09/07/22 22:00 Temperature 102 F H Pulse Rate 75 133 H 120 H Respiratory Rate 20 33 H Blood Pressure 133/82 Pulse Oximetry 94 94 Oxygen Delivery Nasal Cannula Nasal Cannula Oxygen Flow Rate 4 4 09/08/22 00:00 09/08/22 00:00 09/08/22 00:00 Temperature 99.8 F H Pulse Rate 120 H 111 H 118 H Respiratory Rate 20 22 H Blood Pressure 99/59 L Pulse Oximetry 94 96 Oxygen Delivery Nasal Cannula Oxygen Flow Rate 4 09/08/22 02:00 09/08/22 04:00 09/08/22 04:00 Temperature Pulse Rate 118 H 113 H 118 H Respiratory Rate 22 H Blood Pressure Pulse Oximetry 96 Oxygen Delivery Nasal Cannula Oxygen Flow Rate 4 09/08/22 05:20 09/08/22 05:31 09/08/22 06:06 Gregoria
[2022-09-08 07:31] LABS: Lactic Acid Reflex 4.8 mmol/L (0.7-2.0)
[2022-09-08 08:59] LABS: Influenza A QL RT-PCR Negative (Negative); Influenza B QL RT-PCR Negative (Negative); RSV RNA, RT-PCR Negative (Negative); SARS-CoV-2 RNA PCR Negative
--- NOTE | 2022-09-08 09:00 | PM.IMPN ---
Progress Note: A&P Assessment and Plan (1) Left ureteral calculus: Code(s): N20.1 - Calculus of ureter Status: Acute (2) Metabolic encephalopathy: Code(s): G93.41 - Metabolic encephalopathy Status: Acute (3) Pre-diabetes: Code(s): R73.03 - Prediabetes Status: Acute (4) Acute kidney injury: Code(s): N17.9 - Acute kidney failure, unspecified Status: Acute (5) Lactic acidosis: Code(s): E87.20 - Acidosis, unspecified Status: Acute (6) Septic shock: Code(s): A41.9 - Sepsis, unspecified organism; R65.21 - Severe sepsis with septic shock Status: Acute (7) Complicated UTI (urinary tract infection): Code(s): N39.0 - Urinary tract infection, site not specified Status: Acute Plan septic shock resulting from complicated UTI and kidney stone received normal saline boluses 3 L, on normal saline 200, map below 61 patient has fever 101.1, tachycardia tachypnea nightly and lactic acidosis is getting worse meeting criteria ofseptic shock increase ceftriaxone to 2 g IV daily follow-up pro culture urine culture discussed with trains service conductor, moved patient to ICU for vasopressors hold metoprolol, hypertension medications acute encephalopathy patient is more confused Although patient is still oriented x3 Resulting from septic shock and UTI neuro check AFib RVR uncontrolled heart rate, reticulocyte into septic shock cannot give Toprol because of hypertension acute renal failure likely secondary to septic shock and UTI Avoid nephrotoxin medication Continue fluid resuscitation left kidney stone Extracted by ?ureteroscopy/stone manipulation pyelonephritis and patties see above Subjective Date/time seen: 09/08/22 09:00 saw examined patient today there patient is lethargic, denies abdominal pain, chest pain, shortness Of breath, patient is admitted because of left kidney stone, complicated UTI, sepsis. patient received 3l normal saline bolus, currently patient is on normal saline 200 mL/hour. map below 65 currently 61. patient has a fever 101.6, tachycardia tachypnea, lactic acidosis getting worse. meeting quarter of a septic shock. Exam Narrative: GENERAL: ill-appearing in no acute distress. Well-nourished. diaphoretic - EYES: EOMI. Anicteric. - HENT: Moist mucous membranes. - LUNGS: Clear to auscultation bilaterally, no wheezing, rhonchi, or rales. tachypnea - CARDIOVASCULAR: Regular rate and rhythm. No murmur. No JVD. tachycardia - ABDOMEN: Soft, non-tender and non-distended. No palpable masses. - EXTREMITIES: No edema. Peripheral pulses 2+. Non-tender. - NEUROLOGIC: No focal neurological deficits. CN II-XII grossly intact. - PSYCHIATRIC: Awake, Alert and oriented x 3. lethargic - SKIN: No rashes or lesions. Warm. - LYMPH: No cervical lymphadenopathy. Objective Data Vital Signs Vital Signs: Vital Signs - 24 hr 09/07/22 12:29 09/07/22 15:55 09/07/22 16:10 Temperature 97.0 F L 97 F L Pulse Rate 53 L 72 71 Respiratory Rate 20 14 14 Blood Pressure 145/65 H 125/99 H 148/86 H Pulse Oximetry 96 97 100 Oxygen Delivery Room Air Simple Face Mask Simple Face Mask Oxygen Flow Rate 6 6 09/07/22 16:25 09/07/22 16:40 09/07/22 17:10 Temperature Pulse Rate 80 83 91 Respiratory Rate 21 H 16 16 Blood Pressure 132/91 H 144/85 H 155/88 H Pulse Oximetry 93 Oxygen Delivery Room Air Room Air Room Air Oxygen Flow Rate 09/07/22 17:40 09/07/22 18:10 09/07/22 18:40 Temperature Pulse Rate 97 95 63 Respiratory Rate 16 16 16 Blood Pressure 146/71 H 137/80 158/62 H Pulse Oximetry 98 96 Oxygen Delivery Room Air Room Air Nasal Cannula Oxygen Flow Rate 2 09/07/22 19:10 09/07/22 19:40 09/07/22 20:09 Temperature 99.9 F H 102.4 F H Pulse Rate 68 98 136 H Respiratory Rate 16 28 H 34 H Blood Pressure 171/85 H 183/97 H 168/85 H Pulse Oximetry 95 95 93 Oxygen Delivery N
[2022-09-08] MEDS: BRIMONIDINE TARTRATE 0.2% OP SOLN 5 ML BTL 1 DROP EACH EYE ×2 (09:55→22:41)
[2022-09-08] MEDS: DOCUSATE SODIUM 100 MG CAPSULE PO (09:57)
[2022-09-08] MEDS: oxyBUTYnin CHLORIDE XL 5 MG TAB.ER.24 10 MG PO (09:58)
[2022-09-08] MEDS: DORZOLAMIDE HCL 2% OPHTH DROPS 1 DROP LEFT EYE ×3 (10:00→22:38)
[2022-09-08] MEDS: SODIUM CHLORIDE 0.9% IV 1,000 ML 999 ML IV CONT (10:02)
[2022-09-08] MEDS: TIMOLOL MALEATE 0.5% OP SOLN 5 ML BOTTLE 1 DROP EACH EYE ×2 (10:07→22:43)
--- NOTE | 2022-09-08 11:29 | WPDCNINT ---
Assessment and Plan Assessment and plan (1) Septic shock: Code(s): A41.9 - Sepsis, unspecified organism; R65.21 - Severe sepsis with septic shock Status: Acute Assessment and Plan: Sepsis associated with hypotension secondary to UTI Blood pressure low and elevated lactic acid level this morning Patient received 3 L fluid told yesterday NICOM assessment was done this morning and patient showed fluid responsiveness with 30% change I would ordered additional 1 L bolus. Repeat lactic acid now has normalized to 1.8. I will decrease maintain his fluids to 100 mL/hour If patient remains hypotensive post IV fluid bolus, may need to transfer to ICU and start on started on vasopressors Patient's antibiotic has been switched to Rocephin will be continued Blood and urine cultures (2) Complicated UTI (urinary tract infection): Code(s): N39.0 - Urinary tract infection, site not specified Status: Acute Assessment and Plan: See above (3) Lactic acidosis: Code(s): E87.20 - Acidosis, unspecified Status: Acute Assessment and Plan: Secondary to sepsis. Patient receiving another IV fluid bolus now and his lactic acid has now normalized (4) Acute kidney injury: Code(s): N17.9 - Acute kidney failure, unspecified Status: Acute Assessment and Plan: Secondary to hypotension sepsis hypovolemia Check CK level Check renal ultrasound since patient had is new stent placed (5) Metabolic encephalopathy: Code(s): G93.41 - Metabolic encephalopathy Status: Acute Assessment and Plan: Patient appears to had metabolic encephalopathy from anesthesia and sepsis He is AO x2 with nonfocal exam normal ammonia and pending TSH Head CT unremarkable for any new change (6) Left ureteral calculus: Code(s): N20.1 - Calculus of ureter Status: Acute Assessment and Plan: Status post cystoscopy and stent placement Management by Urology (7) COPD exacerbation: Code(s): J44.1 - Chronic obstructive pulmonary disease with (acute) exacerbation Status: Acute Assessment and Plan: Patient does not have documented history of COPD but has 60 pack-year history of smoking Due to my exam patient had increased work of breathing. On exam patient had wheezing bilateral. Patient denies feeling short of breath his states the patient does 'breathe hard' most of the time. No significant edema on lower extremity. Chest x-ray also does not show any pulmonary edema Check BNP Q.4 hours p.r.n. bronchodilators Short course of Solu-Medrol Patient will benefit from formal testing as an outpatient with PFTs once clinically improved discharge Plan DVT prophylaxis -Lovenox Nutrition -diet ordered Code Status -patient wishes to be Full Code Total Critical Care Time - 40 minutes Due to a high probability of clinically significant, life threatening deterioration, the patient required my highest level of preparedness to intervene emergently and I personally spent this critical care time directly and personally managing the patient. This critical care time included obtaining a history; examining the patient; pulse oximetry; ordering and review of studies; arranging urgent treatment with development of a management plan; evaluation of patient's response to treatment; frequent reassessment; and discussions with other providers. It was exclusive of separately billable procedures and treating other patients and teaching time. Please see Assessment and Plan section and the rest of the note for further information on patient assessment and treatment Cotton Presser Consult Note Consult date: 09/08/22 Time Seen: 12:15 Reason for consult: Sepsis, hypotension HPI: 76 year old male with past medical history of hypertension, prostate cancer status post completion of pelvic radiation in 2021.? In March 2022 he was also found to have a large stone in his left kidney and unde
[2022-09-08 12:23] LABS: Lactic Acid Reflex 1.8 mmol/L (0.7-2.0)
[2022-09-08 12:24] LABS: Ammonia < 9 umol/L (9-30)
[2022-09-08 12:57] LABS: Thyroid Stimulating Hormone Reflex 0.416 uIU/mL (0.465-4.68)
[2022-09-08 13:18] LABS: Bacteria Urine Trace /hpf; Mucus Urine Rare /lpf; RBC Urine >75 /hpf (0-2); Squamous Epithelial Cell Urine Rare /hpf (Few); WBC Clumps Urine Present /HPF; WBC Urine >75 /hpf
[2022-09-08 13:20] LABS: Appearance Urine Cloudy (Clear); Bilirubin Urine Negative (Negative); Blood Urine 3+ (Negative); Color Urine Yellow (Yellow); Glucose Urine UA Negative (Negative); Ketones Urine Negative (Negative); Leukocyte Esterase Ur Trace LEU/UL (Negative); Nitrate Urine Negative (Negative); Protein Urine 2+ mg/dL (Negative); Specific Grav Ur >= 1.030 (1.001-1.035); Urobilinogen Urine 0.2 mg/dL (<2.0); pH Urine 5.5 (5.0-9.0)
[2022-09-08] MEDS: methylPREDNISolone SOD SUCC 125 MG VIAL 60 MG IV PUSH (13:20)
[2022-09-08 13:21] LABS: Add Urine Microscopic? YES
[2022-09-08] MEDS: CENTRAL LINE FLUSH 10 ML IV PUSH ×2 (13:22→22:45)
[2022-09-08 13:23] LABS: Creatine Kinase 200 U/L (55-170)
[2022-09-08 13:43] LABS: NT Pro B Type Natriuretic Pept 6970 pg/mL (19.9-100)
[2022-09-08] MEDS: SODIUM CHLORIDE 0.9% IV 1,000 ML 100 ML IV CONT (13:44)
--- NOTE | 2022-09-08 14:38 | WPDANESPN ---
Anes - Prog Note Post-Op Date/Time: 09/08/22 14:38 Vital Signs: Last Vital Signs Temp 36.6 C 09/08/22 11:23 Pulse 101 H 09/08/22 12:00 Resp 14 09/08/22 11:23 BP 102/62 09/08/22 13:35 Pulse Ox 98 09/08/22 11:23 O2 Del Method Nasal Cannula 09/08/22 09:41 O2 Flow Rate 4 09/08/22 09:41 Pain Score (VAS): 0 I/O: Intake & Output 09/07/22 09/08/22 09/08/22 23:59 07:59 15:59 Intake Total 4350 1100 300 Output Total 645 1000 Balance 3705 100 300 Laboratory Tests 09/08/22 04:16 09/08/22 04:16 09/07/22 09/07/22 09/07/22 20:21 21:02 21:02 WBC 5.4 RBC 3.95 L Hgb 13.9 L Hct 41.8 L MCV 105.8 H MCH 35.2 H MCHC 33.3 RDW 13.7 Plt Count 139 L MPV 9.2 Immature Gran % (Auto) 0.6 H Neut % (Auto) 95.8 H Lymph % (Auto) 1.3 L [place] % (Auto) 1.3 L Eos % (Auto) 0.6 Baso % (Auto) 0.4 Lymph # (Auto) 0.07 L [place] # (Auto) 0.1 Eos # (Auto) 0.0 Baso # (Auto) 0.0 Abs Immat Gran (auto) 0.03 Absolute Neuts (auto) 5.2 Absolute Nucleated RBC 0.0 Nucleated RBC % 0.0 Platelet Estimate Adequate Ovalocytes 1+ Schistocytes None seen ESR 27 H Sodium 139 Potassium 3.6 Chloride 107 Carbon Dioxide 25 Anion Gap 7 L BUN 17 Creatinine 1.30 Estim Creat Clear Calc 53 Estimated GFR 54 L Glucose 151 H POC Capillary Glucose 170 H Lactic Acid Calcium 8.3 L Total Bilirubin 1.2 AST 33 ALT 28 Alkaline Phosphatase 77 Ammonia Total Creatine Kinase C-Reactive Protein 1.8 H NT-Pro-B Natriuret Pep Total Protein 7.0 Albumin 3.8 TSH (Reflex) Free T4 Urine Color Urine Appearance Urine pH Ur Specific [place] Urine Protein Urine Glucose (UA) Urine Ketones Ur Blood (Man) Urine Nitrate Urine Bilirubin Urine Urobilinogen Leukocyte Esterase Rfl Urine RBC Urine WBC Urine WBC Clumps Ur Squamous Epith Cells Urine Bacteria Urine Mucus Influenza A (RT-PCR) Influenza B (RT-PCR) RSV (RT-PCR) SARS-CoV-2 RNA (RT-PCR) 09/07/22 09/08/22 09/08/22 21:02 01:25 01:45 WBC RBC Hgb Hct MCV MCH MCHC RDW Plt Count MPV Immature Gran % (Auto) Neut % (Auto) Lymph % (Auto) [place] % (Auto) Eos % (Auto) Baso % (Auto) Lymph # (Auto) [place] # (Auto) Eos # (Auto) Baso # (Auto) Abs Immat Gran (auto) Absolute Neuts (auto) Absolute Nucleated RBC Nucleated RBC % Platelet Estimate Ovalocytes Schistocytes ESR Sodium Potassium Chloride Carbon Dioxide Anion Gap BUN Creatinine Estim Creat Clear Calc Estimated GFR Glucose POC Capillary Glucose 123 H Lactic Acid 3.4 H 3.5 H Calcium Total Bilirubin AST ALT Alkaline Phosphatase Ammonia Total Creatine Kinase C-Reactive Protein NT-Pro-B Natriuret Pep Total Protein Albumin TSH (Reflex) Free T4 Urine Color Urine Appearance Urine pH Ur Specific [place] Urine Protein Urine Glucose (UA) Urine Ketones Ur Blood (Man) Urine Nitrate Urine Bilirubin Urine Urobilinogen Leukocyte Esterase Rfl Urine RBC Urine WBC Urine WBC Clumps Ur Squamous Epith Cells Urine Bacteria Urine Mucus Influenza A (RT-PCR) Influenza B (RT-PCR) RSV (RT-PCR) SARS-CoV-2 RNA (RT-PCR) 09/08/22 09/08/22 09/08/22 04:16 04:16 06:24 WBC 11.7 H RBC 3.73 L Hgb 13.0 L Hct 40.0 L MCV 107.2 H MCH 34.9 H MCHC 32.5 RDW 13.8 Plt Count 136 L MPV 9.5 Immature Gran % (Auto) Neut % (Auto) Lymph % (Auto) [place] % (Auto) Eos % (Auto) Baso % (Auto) Lymph # (Auto) [place] # (Auto) Eos # (Auto) Baso # (Auto) Abs Immat Gran (auto) Absolute Neuts (auto) Absolute Nucleated RBC Nucleated RB
[2022-09-08] MEDS: ALBUTEROL SULFATE NEB 2.5 MG/3 ML INH INHALATION (15:19)
[2022-09-08] MEDS: IPRATROPIUM BR 0.02% INH SOLN 0.5 MG/2.5 ML VIAL INHALATION (15:19)
[2022-09-08 15:41] LABS: Free T4 Free Thyroxine Reflex 1.11 ng/dL (0.78-2.19)
[2022-09-08 16:19] LABS: Alveolar/Arterial O2 Gradient 113.6 mmHg; Base Excess ABG -3.5 mEq/l (+/-2.0); Fractional Inspired Oxygen 36 %; HCO3 ABG 23.1 mEq/l (22.0-26.0); Oxygen Content ABG 17.4 %vol (16.0-22.0); Oxygen Saturation ABG 95.8 % (95.0-100.0); Oxyhemoglobin 94.9 % THb (90.0-100.0); PCO2 ABG 47.5 mmHg (35.0-45.0); PO2 FiO2 Ratio Arterial Blood 2.44 %; pH ABG 7.304 (7.350-7.450)
[2022-09-08 16:21] LABS: Device NASAL CANNULA; Modified Allen's Test Pass; Site Drawn LEFT RADIAL
[2022-09-08 16:49] LABS: Total Triiodothyronine (T3) 0.51 NG/ML (0.97-1.69)
[2022-09-08] MEDS: LATANOPROST 0.005% OP SOLN 2.5 ML BTL 1 DROP EACH EYE (22:41)
[2022-09-09] VITALS (14 sets, daily range): BP systolic 113–145; BP diastolic 56–94; PULSE 74–118; RESP 16–28; TEMP 36.4–36.8; O2SAT 92–98
--- NOTE | 2022-09-09 | ECHO_ITS ---
Patient Info Name: Shant Zaman Age: 76 years : 1945 Gender: Male Ht: 70 in Wt: 250 lbs BSA: 2.41 m2 HR: 107 bpm BP: 136 / 92 mmHg Heart Rhythm: Tachycardia, Sinus Rhythm Technical Quality: Poor Exam Date: 09/09/2022 9:22 AM Exam Location: [facility] Patient Status: Inpatient Admit Date: 09/08/2022 Staff Ordering Physician: Daphne Padilla NP Chartered Financial Analyst: Vandana Lau RDCS Attending Provider: Pablo Walker MD Referring Physician: Valerie GAN; Exam Type: CA echo doppler w bubble study Study Info Indications R65.20 - Severe sepsis without septic shock Complete two-dimentional, color flow and Doppler transthoracic echocardiogram is performed with agitated saline and with contrast to opacify the left ventricle and to improve the delineation of the left ventricle endocardial borders. Contrast/Agitated Saline Contrast/Ag. Saline: Agitated Saline Amount: 4.00 ml Contrast/Ag. Saline: Agitated Saline Amount: 8.00 ml Summary 1. Left atrial chamber dimension is moderately enlarged. 2. Right atrial chamber dimension is mildly enlarged. 3. No evidence for [id number] shunt at atrial level with injection of agitated saline with or without Valsalva. 4. There is no aortic valve stenosis. 5. There is trace mitral valve regurgitation. 6. There is trace tricuspid valve regurgitation. 7. Mild pulmonary hypertension, estimated pulmonary arterial systolic pressure is 41 mmHg. 8. Normal inferior vena cava with no collapse upon inspiration consistent with significantly elevated right atrial pressure, 10 mmHg. 9. Technically difficult study with limited views. Definity contrast administered. Left Ventricle Left ventricular chamber dimension is mildly enlarged. Left ventricular systolic function is normal, estimated at 55-60%. There is mildly increased left ventricular wall thickness. Left ventricular septal wall motion is abnormal with septal motion related to bundle branch block. The left ventricular diastolic function is grade I diastolic dysfunction. Right Ventricle Right ventricular chamber dimension is normal. Right ventricular systolic function is normal. Left Atria Left atrial chamber dimension is moderately enlarged. Right Atria Right atrial chamber dimension is mildly enlarged. Atrial Septum No evidence for [id number]-[id number] shunt at atrial level with injection of agitated saline with or without Valsalva. Aortic Valve The aortic valve is not well visualized. There is no aortic valve stenosis. There is no aortic valve regurgitation. Pulmonic Valve The pulmonic valve is not well visualized. There is trace pulmonic regurgitation. Mitral Valve The mitral valve has normal leaflets. There is trace mitral valve regurgitation. The mitral valve annulus is mildly calcified. Tricuspid Valve The tricuspid valve leaflets are normal. There is trace tricuspid valve regurgitation. Mild pulmonary hypertension, estimated pulmonary arterial systolic pressure is 41 mmHg. Pericardium/Pleural The pericardium appears normal. There is small pericardial effusion. Inferior Vena Cava Normal inferior vena cava with no collapse upon inspiration consistent with significantly elevated right atrial pressure, 10 mmHg. Aorta The aortic root size at the sinus of Valsalva is normal. There is mild aortic atherosclerosis. Left Ventricular Ou
[2022-09-09] MEDS: SODIUM CHLORIDE 0.9% IV 1,000 ML 50 ML IV CONT (03:39)
[2022-09-09] MEDS: cefTRIAXone 2 GM in SODIUM CHLORIDE 0.9% IV 100 ML 200 ML IVPB (06:50)
[2022-09-09] MEDS: CENTRAL LINE FLUSH 10 ML IV PUSH ×3 (06:50→21:51)
[2022-09-09 07:08] LABS: Hematocrit 34.9 % (42.0-52.0); Hemoglobin 11.5 g/dL (14.0-18.0); Mean Corpuscular Hemoglobin 35.5 pg (26-34); Mean Corpuscular Volume 107.7 fl (80-100); Mean Platelet Volume 9.3 fl (7.4-10.4); Platelet Count Result 112 k/mm3 (150-375); Red Blood Count 3.24 M/mm3 (4.6-6.20); Red Cell Distribution Width 13.8 % (11.5-14.5); White Blood Count 17.6 K/mm3 (4.5-10.0)
[2022-09-09 07:22] LABS: Alanine Aminotransferase 26 U/L (6-50); Albumin Level 3.3 g/dL (3.5-5.1); Alkaline Phosphatase 44 U/L (38-126); Anion Gap 3 mmol/L (8-16); Aspartate Amino Transferase 42 U/L (17-59); Bilirubin,Total 0.7 mg/dL (0.2-1.3); Blood Urea Nitrogen 23 mg/dL (9-20); Calcium 7.2 mg/dL (8.4-10.2); Carbon Dioxide 26 mmol/L (22-30); Chloride 102 mmol/L (98-107); Estimated CRCL calculation 52 ml/min; Estimated Glomerular Filt Rate 54; Glucose 142 mg/dL (65-110); Magnesium 1.5 mg/dL (1.6-2.3); Potassium 4.3 mmol/L (3.4-5.0); Sodium 131 mmol/L (137-145)
[2022-09-09] MEDS: DOCUSATE SODIUM 100 MG CAPSULE PO (11:03)
[2022-09-09] MEDS: ENOXAPARIN 40 MG/0.4 ML SYRINGE SUB-Q (11:04)
[2022-09-09] MEDS: methylPREDNISolone SOD SUCC 125 MG VIAL 60 MG IV PUSH (11:04)
[2022-09-09] MEDS: DORZOLAMIDE HCL 2% OPHTH DROPS 1 DROP LEFT EYE ×3 (11:05→17:32)
[2022-09-09] MEDS: BRIMONIDINE TARTRATE 0.2% OP SOLN 5 ML BTL 1 DROP EACH EYE ×2 (11:05→21:50)
[2022-09-09] MEDS: TIMOLOL MALEATE 0.5% OP SOLN 5 ML BOTTLE 1 DROP EACH EYE ×2 (11:05→21:50)
[2022-09-09] MEDS: ONDANSETRON INJ 4 MG/2 ML VIAL IV PUSH ×2 (13:41→21:59)
[2022-09-09] MEDS: METOPROLOL TARTRATE 25 MG TABLET PO ×2 (13:42→21:50)
[2022-09-09] MEDS: oxyBUTYnin CHLORIDE XL 5 MG TAB.ER.24 10 MG PO (13:42)
--- NOTE | 2022-09-09 15:57 | PCOTNOTE ---
Attempted OT evaluation this date; pt. unable to stay awake to give name. in room and states pt. did not sleep yesterday and has been sleeping most of the day. Will attempt again in AM.
--- NOTE | 2022-09-09 16:06 | PM.IMPN ---
Progress Note: A&P Assessment and Plan (1) Left ureteral calculus: Code(s): N20.1 - Calculus of ureter Status: Acute (2) Metabolic encephalopathy: Code(s): G93.41 - Metabolic encephalopathy Status: Acute (3) Pre-diabetes: Code(s): R73.03 - Prediabetes Status: Acute (4) Acute kidney injury: Code(s): N17.9 - Acute kidney failure, unspecified Status: Acute (5) Lactic acidosis: Code(s): E87.20 - Acidosis, unspecified Status: Acute (6) Septic shock: Code(s): A41.9 - Sepsis, unspecified organism; R65.21 - Severe sepsis with septic shock Status: Acute (7) Complicated UTI (urinary tract infection): Code(s): N39.0 - Urinary tract infection, site not specified Status: Acute (8) Bacteremia: Code(s): R78.81 - Bacteremia Status: Acute Plan septic shock resulting from complicated UTI and kidney stone received normal saline boluses 3 L, on normal saline 200, map below 61 patient has fever 101.1, tachycardia tachypnea nightly and lactic acidosis is getting worse meeting criteria of septic shock increase ceftriaxone to 2 g IV daily follow-up pro culture urine culture discussed with manager market development, starting methylprednisolone IV hold hypertension medications Now blood pressure becomes stable Continue vancomycin and ceftriaxone IV Discontinue methylprednisolone IV Bacteremia Blood culture 09/07 grew Enterococcus faecalis Repeat blood culture Follow-up with susceptibility acute encephalopathy patient is more confused Although patient is still oriented x3 Resulting from septic shock and UTI neuro check AFib RVR uncontrolled heart rate, Continue metoprolol 25 mg b.i.d. p.o. acute renal failure likely secondary to septic shock and UTI Avoid nephrotoxin medication Continue fluid resuscitation left kidney stone Extracted by ?ureteroscopy/stone manipulation pyelonephritis and patties see above Subjective Date/time seen: 09/09/22 16:06 Interval history: I saw examined patient today. Patient is normal comfortable, denies dizziness, but still has general weakness, denies nausea vomiting diarrhea dysuria. Afebrile overnight Exam Narrative: General: Pt is alert awake and in NAD Lungs/Chest: Trachea central Clear BS B/L, Decreased air movement bilaterally, bilateral occasional wheezing heard throughout lungs, no crackles, mild tachypnea and increased work of breathing Cardiac: RRR. Normal S1 S2. No murmurs Circulation: Pedal pulses are intact and symmetrical. Abdomen: Normal bowel sounds. Obese. Soft. NT. ND. Extremities: No clubbing, cyanosis or edema. Warm : De Leon in place Neurologic: Follows commands. Moves all 4 extremities PERRL he is AO x2, no focal neurological deficit apparent Skin: Varicose veins in legs Objective Data Vital Signs Vital Signs: Vital Signs - 24 hr 09/08/22 17:13 09/08/22 18:14 09/08/22 18:00 Temperature 98.7 F 97.7 F Pulse Rate 113 H 111 H Respiratory Rate 36 H Blood Pressure 105/48 L Pulse Oximetry 96 Oxygen Delivery Oxygen Flow Rate 09/08/22 20:00 09/09/22 00:00 09/08/22 20:00 Temperature 98 F 98 F Pulse Rate 113 H 108 H 106 H Respiratory Rate 22 H 20 Blood Pressure 112/62 113/56 L Pulse Oximetry 91 96 Oxygen Delivery Oxygen Flow Rate 09/08/22 20:00 09/08/22 22:00 09/09/22 00:00 Temperature Pulse Rate 108 H 106 H Respiratory Rate Blood Pressure Pulse Oximetry 91 Oxygen Delivery Nasal Cannula Oxygen Flow Rate 4 09/09/22 00:00 09/09/22 02:00 09/09/22 04:00 Temperature 98.3 F Pulse Rate 110 H 115 H Respiratory Rate 20 Blood Pressure 136/92 H Pulse Oximetry 96 95 Oxygen Delivery Nasal Cannula Oxygen Flow Rate 4 09/09/22 04:00 09/09/22 04:00 09/09/22 06:00 Temperature Pulse Rate 118 H 98 Respiratory Rate Blood Pressure Pulse Oximetry 96 Oxy
[2022-09-09] MEDS: LATANOPROST 0.005% OP SOLN 2.5 ML BTL 1 DROP EACH EYE (21:50)
[2022-09-10] VITALS (14 sets, daily range): BP systolic 113–156; BP diastolic 73–103; PULSE 58–99; RESP 16–22; TEMP 35.9–36.8; O2SAT 94–98
[2022-09-10] MEDS: SODIUM CHLORIDE 0.9% IV 1,000 ML 50 ML IV CONT (01:53)
[2022-09-10] MEDS: cefTRIAXone 2 GM in SODIUM CHLORIDE 0.9% IV 100 ML 200 ML IVPB (06:27)
[2022-09-10] MEDS: CENTRAL LINE FLUSH 10 ML IV PUSH ×3 (06:31→20:20)
[2022-09-10 06:41] LABS: Hematocrit 35.4 % (42.0-52.0); Hemoglobin 11.6 g/dL (14.0-18.0); Immature Platelet Fraction Pct 3.9 % (0.9-11.2); Mean Corpuscular HGB Conc 32.8 g/dl (32-36); Mean Corpuscular Hemoglobin 35.2 pg (26-34); Mean Corpuscular Volume 107.3 fl (80-100); Mean Platelet Volume 9.8 fl (7.4-10.4); Platelet Count Result 119 k/mm3 (150-375); Red Cell Distribution Width 13.6 % (11.5-14.5)
[2022-09-10 08:35] LABS: Alanine Aminotransferase 38 U/L (6-50); Anion Gap 3 mmol/L (8-16); Aspartate Amino Transferase 65 U/L (17-59); Bilirubin,Total 0.8 mg/dL (0.2-1.3); Blood Urea Nitrogen 25 mg/dL (9-20); Calcium 7.3 mg/dL (8.4-10.2); Carbon Dioxide 25 mmol/L (22-30); Chloride 102 mmol/L (98-107); Estimated CRCL calculation 76 ml/min; Estimated Glomerular Filt Rate > 60; Glucose 201 mg/dL (65-110); Magnesium 1.8 mg/dL (1.6-2.3); Potassium 4.5 mmol/L (3.4-5.0); Sodium 130 mmol/L (137-145)
[2022-09-10 08:36] LABS: Albumin Level 3.5 g/dL (3.5-5.1); Alkaline Phosphatase 46 U/L (38-126)
--- NOTE | 2022-09-10 08:56 | PM.IMPN ---
Progress Note: A&P Assessment and Plan (1) Left ureteral calculus: Code(s): N20.1 - Calculus of ureter Status: Acute (2) Metabolic encephalopathy: Code(s): G93.41 - Metabolic encephalopathy Status: Acute (3) Pre-diabetes: Code(s): R73.03 - Prediabetes Status: Acute (4) Acute kidney injury: Code(s): N17.9 - Acute kidney failure, unspecified Status: Acute (5) Lactic acidosis: Code(s): E87.20 - Acidosis, unspecified Status: Acute (6) Septic shock: Code(s): A41.9 - Sepsis, unspecified organism; R65.21 - Severe sepsis with septic shock Status: Acute (7) Complicated UTI (urinary tract infection): Code(s): N39.0 - Urinary tract infection, site not specified Status: Acute (8) Bacteremia: Code(s): R78.81 - Bacteremia Status: Acute Plan septic shock resulting from complicated UTI and kidney stone received normal saline boluses 3 L, on normal saline 200, map below 61 patient has fever 101.1, tachycardia tachypnea nightly and lactic acidosis is getting worse meeting criteria of septic shock increase ceftriaxone to 2 g IV daily follow-up pro culture urine culture discussed with program management professional, starting methylprednisolone IV hold hypertension medications Now blood pressure becomes stable DC vancomycin and ceftriaxone IV, transitioned to Unasyn IV based on susceptibility Discontinue methylprednisolone IV Bacteremia Blood culture 09/07 grew Enterococcus faecalis Repeat blood culture susceptibility: Ampicillin and vancomycin acute encephalopathy patient is more confused Although patient is still oriented x3 Resulting from septic shock and UTI neuro check AFib RVR uncontrolled heart rate, Continue metoprolol 25 mg b.i.d. p.o. acute renal failure likely secondary to septic shock and UTI Avoid nephrotoxin medication Continue fluid resuscitation normal saline 100 mL/hour left kidney stone Extracted by ?ureteroscopy/stone manipulation pyelonephritis and patties see above Subjective Date/time seen: 09/10/22 08:56 Interval history: I saw examined patient today. Patient has no new issue or events over the night, denies dizziness, but still has general weakness, denies nausea vomiting diarrhea dysuria. Afebrile overnight Exam Narrative: General: Pt is alert awake and in NAD Lungs/Chest: Trachea central Clear BS B/L, Decreased air movement bilaterally, bilateral occasional wheezing heard throughout lungs, no crackles, mild tachypnea and increased work of breathing Cardiac: RRR. Normal S1 S2. No murmurs Circulation: Pedal pulses are intact and symmetrical. Abdomen: Normal bowel sounds. Obese. Soft. NT. ND. Extremities: No clubbing, cyanosis or edema. Warm : De Leon in place Neurologic: Follows commands. Moves all 4 extremities PERRL he is AO x2, no focal neurological deficit apparent Skin: Varicose veins in legs Objective Data Vital Signs Vital Signs: Vital Signs - 24 hr 09/09/22 12:00 09/09/22 13:42 09/09/22 12:00 Temperature 97.5 F L Pulse Rate 95 95 Respiratory Rate 16 Blood Pressure 145/88 H Pulse Oximetry 98 93 Oxygen Delivery Nasal Cannula Oxygen Flow Rate 2 09/09/22 16:00 09/09/22 16:00 09/09/22 10:00 Temperature 98.0 F Pulse Rate 74 98 Respiratory Rate 24 H Blood Pressure 144/94 H Pulse Oximetry 94 97 Oxygen Delivery Nasal Cannula Oxygen Flow Rate 2 09/09/22 12:00 09/09/22 14:00 09/09/22 16:00 Temperature Pulse Rate 91 100 100 Respiratory Rate Blood Pressure Pulse Oximetry Oxygen Delivery Oxygen Flow Rate 09/09/22 18:00 09/09/22 20:00 09/09/22 21:50 Temperature 97.7 F Pulse Rate 89 75 89 Respiratory Rate 20 Blood Pressure 138/90 Pulse Oximetry 97 Oxygen Delivery Oxygen Flow Rate 09/09/22 20:00 09/09/22 20:00 09/09/22 22:00 Temperature Pulse Rate 94 87 Resp
[2022-09-10] MEDS: SODIUM CHLORIDE 0.9% IV 1,000 ML 100 ML IV CONT ×3 (10:00→20:20)
[2022-09-10] MEDS: BRIMONIDINE TARTRATE 0.2% OP SOLN 5 ML BTL 1 DROP EACH EYE ×2 (10:12→20:19)
[2022-09-10] MEDS: DORZOLAMIDE HCL 2% OPHTH DROPS 1 DROP LEFT EYE ×3 (10:13→18:31)
[2022-09-10] MEDS: METOPROLOL TARTRATE 25 MG TABLET PO ×2 (10:13→20:19)
[2022-09-10] MEDS: ENOXAPARIN 40 MG/0.4 ML SYRINGE SUB-Q (10:13)
[2022-09-10] MEDS: oxyBUTYnin CHLORIDE XL 5 MG TAB.ER.24 10 MG PO (10:14)
[2022-09-10] MEDS: TIMOLOL MALEATE 0.5% OP SOLN 5 ML BOTTLE 1 DROP EACH EYE ×2 (10:15→20:19)
[2022-09-10] MEDS: AMPICILLIN SULB 3 GM/NS 100 ML 3 GM/100 ML VIAL IVPB ×2 (13:04→18:31)
[2022-09-10] MEDS: LATANOPROST 0.005% OP SOLN 2.5 ML BTL 1 DROP EACH EYE (20:19)
[2022-09-11] VITALS (11 sets, daily range): BP systolic 132–154; BP diastolic 57–89; PULSE 56–93; RESP 14–20; TEMP 35.9–37.2; O2SAT 91–98
[2022-09-11] MEDS: AMPICILLIN SULB 3 GM/NS 100 ML 3 GM/100 ML VIAL IVPB ×3 (00:15→13:44)
[2022-09-11] MEDS: CENTRAL LINE FLUSH 10 ML IV PUSH ×3 (05:29→20:52)
[2022-09-11 05:44] LABS: Alanine Aminotransferase 68 U/L (6-50); Albumin Level 3.1 g/dL (3.5-5.1); Alkaline Phosphatase 68 U/L (38-126); Anion Gap 1 mmol/L (8-16); Aspartate Amino Transferase 71 U/L (17-59); Bilirubin,Total 0.6 mg/dL (0.2-1.3); Blood Urea Nitrogen 24 mg/dL (9-20); Calcium 7.7 mg/dL (8.4-10.2); Carbon Dioxide 30 mmol/L (22-30); Chloride 107 mmol/L (98-107); Estimated CRCL calculation 67 ml/min; Estimated Glomerular Filt Rate > 60; Glucose 123 mg/dL (65-110); Magnesium 1.8 mg/dL (1.6-2.3); Potassium 3.6 mmol/L (3.4-5.0); Sodium 138 mmol/L (137-145)
[2022-09-11 05:53] LABS: Hematocrit 34.4 % (42.0-52.0); Hemoglobin 11.1 g/dL (14.0-18.0); Mean Corpuscular HGB Conc 32.3 g/dl (32-36); Mean Corpuscular Hemoglobin 34.9 pg (26-34); Mean Corpuscular Volume 108.2 fl (80-100); Mean Platelet Volume 9.9 fl (7.4-10.4); Platelet Count Result 124 k/mm3 (150-375); Red Blood Count 3.18 M/mm3 (4.6-6.20); Red Cell Distribution Width 13.7 % (11.5-14.5); White Blood Count 12.6 K/mm3 (4.5-10.0)
--- NOTE | 2022-09-11 06:41 | WPDUROPN2 ---
Progress Note: A&P Assessment and Plan (1) Bacteremia: Code(s): R78.81 - Bacteremia Status: Acute (2) Complicated UTI (urinary tract infection): Code(s): N39.0 - Urinary tract infection, site not specified Status: Acute (3) Left ureteral calculus: Code(s): N20.1 - Calculus of ureter Status: Acute Assessment and Plan: Await completion of repeat blood cultures. Will plan to leave left ureteral stent x2-3 weeks. De Leon can be removed anytime. Subjective Subjective Date/Time Seen: 09/11/22 06:41 Awake and oriented early this morning. Comfortable, no complaints. Review of Systems Cardiovascular: Cardiovascular: Denies chest pain, Denies lightheadedness, Denies palpitations and Denies dyspnea Respiratory: Respiratory: Denies dyspnea Gastrointestinal: Gastrointestinal: Denies diarrhea, Denies nausea and Denies vomiting Genitourinary: Genitourinary: Denies hematuria and Denies dysuria Endocrine: Endocrine: Denies palpitations Exam Const: General: no acute distress Resp: Effort & Inspection: normal respiratory effort GI: Inspection: non-distended GI Palp: No abdominal tenderness and No Guarding due to palpation present (GI) Auscultation: normal bowel sounds Objective Data Vital Signs Vital Signs: Vital Signs - 24 hr 09/10/22 08:13 09/10/22 09:56 09/10/22 10:13 Temperature 98.2 F Pulse Rate 89 91 Respiratory Rate 22 H Blood Pressure 147/103 H Pulse Oximetry 96 Oxygen Delivery Nasal Cannula Oxygen Flow Rate 3 09/10/22 12:36 09/10/22 08:00 09/10/22 08:00 Temperature 96.6 F L Pulse Rate 75 89 Respiratory Rate 20 Blood Pressure 113/74 Pulse Oximetry 94 97 Oxygen Delivery Nasal Cannula Oxygen Flow Rate 2 09/10/22 12:00 09/10/22 16:00 09/10/22 16:00 Temperature 97.8 F Pulse Rate 77 58 L 74 Respiratory Rate 16 Blood Pressure 123/73 Pulse Oximetry 98 Oxygen Delivery Oxygen Flow Rate 09/10/22 20:19 09/10/22 20:32 09/10/22 20:00 Temperature 97.8 F Pulse Rate 83 84 99 Respiratory Rate 20 Blood Pressure 130/80 Pulse Oximetry 98 Oxygen Delivery Oxygen Flow Rate 09/10/22 20:00 09/10/22 23:14 09/11/22 00:00 Temperature 97.7 F Pulse Rate 86 82 Respiratory Rate 20 Blood Pressure 145/95 H Pulse Oximetry 98 98 Oxygen Delivery Nasal Cannula Oxygen Flow Rate 2 09/11/22 04:34 09/11/22 04:00 Temperature 97.7 F Pulse Rate 86 81 Respiratory Rate 20 Blood Pressure 150/71 H Pulse Oximetry 98 Oxygen Delivery Oxygen Flow Rate Intake/Output Intake/Output: Intake & Output 09/08/22 09/09/22 09/10/22 09/11/22 23:59 23:59 23:59 23:59 Intake Total 1740 5170 4790 1200 Output Total 1479 5975 2251 1800 Balance 265 4294 2667 -611 Meds/Results Medications: Active Medications Generic Name Dose Route Start Last Admin Trade Name Freq PRN Reason Stop Dose Admin Hydrocodone Bitart/Acetaminophen 1 tab 09/07/22 21:38 Hydrocodone/Acetaminophen (*Crx) 5-325 Mg Tablet PO Q4H PRN Pain Rated 1-6 Albuterol 2.5 mg 09/08/22 12:46 09/08/22 15:19 Albuterol Sulfate Neb 2.5 Mg/3 Ml Inh INHALATION 2.5 mg Q4HRT PRN Administration Shortness Of Breath wheezing Brimonidine Tartrate 1 drop 09/07/22 21:50 09/10/22 20:19 Brimonidine Tartrate 0.2% Op Soln 5 Ml Btl EACH EYE 1 drop Q12HR MART Administration Diclofenac Sodium 1 applic 09/08/22 15:12 Diclofenac Sodium 1% 100 Gm Gel (*Bkc) TOPICAL QID PRN Pain Docusate Sodium 100 mg 09/08/22 09:00 09/10/22 18:10 Docusate Sodium 100 Mg Capsule PO Not Given BID MART Dorzolamide HCl 1 drop 09/07/22 21:50 09/10/22 18:31 Dorzolamide Hcl 2% Ophth Drops LEFT EYE 1 drop TID MART Administration Enoxaparin Sodium 40 mg 09/09/22 09:00 09/10/22 10:13 Enoxaparin 40 Mg/0.4 Ml Syringe SUB-Q 40 mg DAILY MART Administration Hydroxychloroquine Sulfate 4
[2022-09-11] MEDS: BRIMONIDINE TARTRATE 0.2% OP SOLN 5 ML BTL 1 DROP EACH EYE ×2 (09:29→20:42)
[2022-09-11] MEDS: METOPROLOL TARTRATE 25 MG TABLET PO ×2 (09:30→20:43)
[2022-09-11] MEDS: DORZOLAMIDE HCL 2% OPHTH DROPS 1 DROP LEFT EYE ×3 (09:30→17:11)
[2022-09-11] MEDS: TIMOLOL MALEATE 0.5% OP SOLN 5 ML BOTTLE 1 DROP EACH EYE ×2 (09:30→20:42)
[2022-09-11] MEDS: ENOXAPARIN 40 MG/0.4 ML SYRINGE SUB-Q (09:30)
[2022-09-11] MEDS: DOCUSATE SODIUM 100 MG CAPSULE PO (09:31)
[2022-09-11] MEDS: oxyBUTYnin CHLORIDE XL 5 MG TAB.ER.24 10 MG PO (09:31)
[2022-09-11] MEDS: PERFLUTREN LIPID MICROSPHERES 1.5 ML VIAL DILUTED TO 10 ML TOTAL VOLUME IV PUSH (10:40)
[2022-09-11] MEDS: HYDROXYCHLOROQUINE SULFATE 200 MG TABLET 400 MG PO (13:44)
--- NOTE | 2022-09-11 14:29 | PC.NURSE ---
This patient, Shant Zaman, was transferred to [[facility]] on 09/11/22 at 1420. Personal belongings sent with patient. Report given to [ARUNA ]. Appropriate documentation sent with patient.
--- NOTE | 2022-09-11 17:03 | PM.IMPN ---
Progress Note: A&P Assessment and Plan (1) Left ureteral calculus: Code(s): N20.1 - Calculus of ureter Status: Acute (2) Metabolic encephalopathy: Code(s): G93.41 - Metabolic encephalopathy Status: Acute (3) Pre-diabetes: Code(s): R73.03 - Prediabetes Status: Acute (4) Acute kidney injury: Code(s): N17.9 - Acute kidney failure, unspecified Status: Acute (5) Lactic acidosis: Code(s): E87.20 - Acidosis, unspecified Status: Acute (6) Septic shock: Code(s): A41.9 - Sepsis, unspecified organism; R65.21 - Severe sepsis with septic shock Status: Acute (7) Complicated UTI (urinary tract infection): Code(s): N39.0 - Urinary tract infection, site not specified Status: Acute (8) Bacteremia: Code(s): R78.81 - Bacteremia Status: Acute Plan septic shock resulting from complicated UTI and kidney stone received normal saline boluses 3 L, on normal saline 200, map below 61 patient has fever 101.1, tachycardia tachypnea nightly and lactic acidosis is getting worse meeting criteria of septic shock increase ceftriaxone to 2 g IV daily follow-up pro culture urine culture discussed with glass vial filler, starting methylprednisolone IV hold hypertension medications Now blood pressure becomes stable DC vancomycin and ceftriaxone IV, transitioned to Unasyn IV based on susceptibility Discussed with ID pharmacy and chaged to Ampicillin Discontinue methylprednisolone IV Bacteremia Blood culture 09/07 grew Enterococcus faecalis Repeat blood culture pending susceptibility: Ampicillin and vancomycin Contineu Ampicillin duration will be 2 weeks from negative cutlure (also patient can go on Linezolid on discharge) acute encephalopathy patient is more confused Although patient is still oriented x3 Resulting from septic shock and UTI neuro check AFib RVR uncontrolled heart rate, Continue metoprolol 25 mg b.i.d. p.o. Discussed anticoagulation and patient decliined starting any until he has discussed with his PCP acute renal failure likely secondary to septic shock and UTI Avoid nephrotoxin medication Continue fluid resuscitation normal saline 100 mL/hour left kidney stone Extracted by ?ureteroscopy/stone manipulation pyelonephritis and patties see above Subjective Date/time seen: 09/11/22 17:03 Interval history: I saw examined patient today. Patient has no new issue or events over the night, denies dizziness, but still has general weakness, denies nausea vomiting diarrhea dysuria. Discussed anticoagulation with him given that he has Afib, patient stated he would like to discuss with his PCP before going on Eliquis again, noted he took it last year for PE. We concluded he will follow up withi PCP on discharge to discuss anticoagulation Review of Systems Review of Systems: All systems reviewed & are unremarkable except as noted in HPI and below (HPI) ROS unobtainable: Yes unobtainable due to mental status Exam Narrative: General: Pt is alert awake and in NAD Lungs/Chest: Trachea central Clear BS B/L, Decreased air movement bilaterally, bilateral occasional wheezing heard throughout lungs, no crackles, mild tachypnea and increased work of breathing Cardiac: RRR. Normal S1 S2. No murmurs Circulation: Pedal pulses are intact and symmetrical. Abdomen: Normal bowel sounds. Obese. Soft. NT. ND. Extremities: No clubbing, cyanosis or edema. Warm : De Leon in place Neurologic: Follows commands. Moves all 4 extremities PERRL he is AO x2, no focal neurological deficit apparent Skin: Varicose veins in legs Const: Other: Acutely ill-appearing, obese, appears stated age HENMT: Other: Mucous membranes are dry, no oral pharyngeal erythema, head is normocephalic atraumatic, no facial asymmetry Eyes: Other: Pupils are equal and reactive, no scleral icterus, no conjunctival pallor Neck: O
[2022-09-11] MEDS: AMPICILLIN 2 GM/NS 100 ML 2 GM/100 ML BAG IVPB ×2 (17:10→20:43)
[2022-09-11 18:49] LABS: Vancomycin Trough 5.3 ug/mL (10.0-20.0)
[2022-09-11] MEDS: SODIUM CHLORIDE 0.9% IV 1,000 ML 100 ML IV CONT (20:41)
[2022-09-11] MEDS: LATANOPROST 0.005% OP SOLN 2.5 ML BTL 1 DROP EACH EYE (20:42)
[2022-09-12] VITALS (9 sets, daily range): BP systolic 148–160; BP diastolic 80–99; PULSE 47–96; RESP 12–18; TEMP 36.7–37.4; O2SAT 92–96
[2022-09-12] MEDS: AMPICILLIN 2 GM/NS 100 ML 2 GM/100 ML BAG IVPB ×6 (00:23→20:52)
--- NOTE | 2022-09-12 04:08 | PC.NURSE ---
Patient resting at intervals but remains confused and keeps forgetting that he has a fleming and wanting to get up to [facility]. Patient keeps skirting around the issue when ask orientation questions. back tender paper machine notified that patient needs to be moved closer to desk once room and bed becomes available. Patient condition medically at this time is stable.
[2022-09-12 04:10] LABS: Hematocrit 31.3 % (42.0-52.0); Hemoglobin 10.4 g/dL (14.0-18.0); Mean Corpuscular HGB Conc 33.2 g/dl (32-36); Mean Corpuscular Volume 105.4 fl (80-100); Mean Platelet Volume 9.6 fl (7.4-10.4); Platelet Count Result 120 k/mm3 (150-375); Red Blood Count 2.97 M/mm3 (4.6-6.20); Red Cell Distribution Width 13.7 % (11.5-14.5); White Blood Count 8.8 K/mm3 (4.5-10.0)
[2022-09-12 04:20] LABS: Alanine Aminotransferase 80 U/L (6-50); Albumin Level 2.9 g/dL (3.5-5.1); Alkaline Phosphatase 74 U/L (38-126); Anion Gap 1 mmol/L (8-16); Aspartate Amino Transferase 68 U/L (17-59); Bilirubin,Total 0.7 mg/dL (0.2-1.3); Blood Urea Nitrogen 22 mg/dL (9-20); Calcium 7.7 mg/dL (8.4-10.2); Carbon Dioxide 29 mmol/L (22-30); Chloride 107 mmol/L (98-107); Estimated CRCL calculation 67 ml/min; Estimated Glomerular Filt Rate > 60; Glucose 106 mg/dL (65-110); Magnesium 1.6 mg/dL (1.6-2.3); Potassium 3.4 mmol/L (3.4-5.0); Sodium 137 mmol/L (137-145)
[2022-09-12 04:33] LABS: Eosinophils Absolute Manual 0.44 K/mm3 (0.02-0.5); Eosinophils Percent Manual 5 % (0-4); Monocytes Absolute Manual 0.52 K/mm3 (0.1-0.90); Monocytes Percent Manual 6 % (3-9); Neutrophils Percent Manual 81 % (46-73); Nucleated Red Blood Cells 2 %; Total Cells Counted 100
[2022-09-12 04:34] LABS: Platelet Estimate Adequate (Adequate); Schistocytes None Seen (NORMAL)
[2022-09-12] MEDS: TIMOLOL MALEATE 0.5% OP SOLN 5 ML BOTTLE 1 DROP EACH EYE ×2 (09:16→20:52)
[2022-09-12] MEDS: DORZOLAMIDE HCL 2% OPHTH DROPS 1 DROP LEFT EYE ×3 (09:17→16:38)
[2022-09-12] MEDS: BRIMONIDINE TARTRATE 0.2% OP SOLN 5 ML BTL 1 DROP EACH EYE ×2 (09:18→20:52)
[2022-09-12] MEDS: ENOXAPARIN 40 MG/0.4 ML SYRINGE SUB-Q (09:19)
[2022-09-12] MEDS: HYDROXYCHLOROQUINE SULFATE 200 MG TABLET 400 MG PO (09:23)
[2022-09-12] MEDS: oxyBUTYnin CHLORIDE XL 5 MG TAB.ER.24 10 MG PO (09:23)
[2022-09-12] MEDS: POTASSIUM CHLORIDE 20 MEQ PACKET (FOR LIQUID) 40 MEQ PO (10:14)
[2022-09-12] MEDS: CENTRAL LINE FLUSH 10 ML IV PUSH ×2 (13:27→20:53)
--- NOTE | 2022-09-12 15:18 | PM.IMPN ---
Progress Note: A&P Assessment and Plan (1) Bacteremia: Code(s): R78.81 - Bacteremia Status: Acute (2) Complicated UTI (urinary tract infection): Code(s): N39.0 - Urinary tract infection, site not specified Status: Acute (3) Septic shock: Code(s): A41.9 - Sepsis, unspecified organism; R65.21 - Severe sepsis with septic shock Status: Acute (4) Acute kidney injury: Code(s): N17.9 - Acute kidney failure, unspecified Status: Acute (5) Metabolic encephalopathy: Code(s): G93.41 - Metabolic encephalopathy Status: Acute (6) Sepsis: Qualifiers: Sepsis type: sepsis due to unspecified organism Sepsis acute organ dysfunction status: with acute organ dysfunction Severe sepsis acute organ dysfunction type: encephalopathy Code(s): A41.9 - Sepsis, unspecified organism Status: Acute (7) Left ureteral calculus: Code(s): N20.1 - Calculus of ureter Status: Acute Plan 76 years old M with PMH of HTN admitted after elective ?ESWL for a large renal calculus with subsequent ureteral fragments,Postoperatively he has had intense dysuria with frequency urgency and generalized weakness.? In light of that he was admitted for overnight observation initially. Hospital course was complicated with septic shock, blood culture grew enterococcus fecalis Hospital course had Afibb with RVR, STEVENSON. 1)septic shock ?resulting from complicated UTI and kidney stone Urine culture and blood culture grew enterococcus fecalis Continue Ampicillin duration will be 2 weeks from negative culture (also patient can go on Linezolid on discharge) Await repeat blood culture to finalize before discharge 2)?acute encephalopathy Resolved ?3)AFib RVR Continue metoprolol 25 mg b.i.d. p.o. Previous Hospitalist Discussed anticoagulation and patient declined starting any until he has discussed with his PCP 4)?acute renal failure ?Resolved 5)DVT ppx:Lovenox 6)Code:Full 7)Dispo:Anticipate discharge in next 48-72 hours Time Spent With Patient Time with patient: 25 - 35 minutes Subjective Date/time seen: 09/12/22 15:18 Interval history: no acute events overnight Eager to go home Review of Systems Review of Systems: All systems reviewed & are unremarkable except as noted in HPI and below Constitutional: Constitutional: Reports no additional constitutional complaints Eyes: Eyes: Reports no additional eye complaints ENT: Reports system reviewed and no additional complaints, except as documented Cardiovascular: Cardiovascular: Reports no additional cardiovascular complaints Respiratory: Respiratory: Reports no additional respiratory complaints Gastrointestinal: Gastrointestinal: Reports no additional gastrointestinal complaints Musculoskeletal: Musculoskeletal: Reports no additional musculoskeletal complaints Integumentary/Breasts: Skin/Breast: Reports system reviewed and no additional complaints, except as docu Neurologic: Reports system reviewed and no additional complaints, except as documented Exam Narrative: General: Pt is alert awake and in NAD Lungs/Chest: Decreased air movement bilaterally, no crackles, Cardiac: RRR. Normal S1 S2. No murmurs Circulation: Pedal pulses are intact and symmetrical. Abdomen: Normal bowel sounds.? Obese. Soft. NT. ND. Extremities: No clubbing, cyanosis or edema. Warm : De Leon in place Neurologic: Follows commands. Moves all 4 extremities? Skin:? Varicose veins in legs Objective Data Vital Signs Vital Signs: Vital Signs - 24 hr 09/11/22 16:00 09/11/22 16:00 09/11/22 20:38 Temperature 98.5 F Pulse Rate 90 76 72 Respiratory Rate 20 Blood Pressure 133/79 Pulse Oximetry 97 09/12/22 00:00 09/11/22 20:00 09/12/22 02:47 Temperature 98.9 F Pulse Rate 72 87 72 Respiratory Rate 14 Blood Pressure 154/89 H Pulse Oximetry 92 09/12/22 04:00 09/12/22 08:00 09/12/22 09:25 Temperature 98.5 F
[2022-09-12] MEDS: METOPROLOL TARTRATE 25 MG TABLET PO (20:51)
[2022-09-12] MEDS: LATANOPROST 0.005% OP SOLN 2.5 ML BTL 1 DROP EACH EYE (20:52)
[2022-09-13] VITALS (10 sets, daily range): BP systolic 138–174; BP diastolic 66–86; PULSE 62–94; RESP 16–20; TEMP 36.4–37.2; O2SAT 59–95
[2022-09-13] MEDS: AMPICILLIN 2 GM/NS 100 ML 2 GM/100 ML BAG IVPB ×4 (01:07→12:26)
[2022-09-13 03:56] LABS: Hematocrit 30.7 % (42.0-52.0); Hemoglobin 10.4 g/dL (14.0-18.0); Mean Corpuscular HGB Conc 33.9 g/dl (32-36); Mean Corpuscular Volume 103.4 fl (80-100); Mean Platelet Volume 9.4 fl (7.4-10.4); Platelet Count Result 124 k/mm3 (150-375); Red Blood Count 2.97 M/mm3 (4.6-6.20); Red Cell Distribution Width 13.4 % (11.5-14.5); White Blood Count 7.8 K/mm3 (4.5-10.0)
[2022-09-13 04:09] LABS: Alanine Aminotransferase 62 U/L (6-50); Alkaline Phosphatase 73 U/L (38-126); Anion Gap 4 mmol/L (8-16); Aspartate Amino Transferase 42 U/L (17-59); Bilirubin,Total 0.8 mg/dL (0.2-1.3); Blood Urea Nitrogen 16 mg/dL (9-20); Calcium 7.8 mg/dL (8.4-10.2); Carbon Dioxide 28 mmol/L (22-30); Chloride 106 mmol/L (98-107); Estimated CRCL calculation 70 ml/min; Estimated Glomerular Filt Rate > 60; Glucose 107 mg/dL (65-110); Magnesium 1.7 mg/dL (1.6-2.3); Sodium 138 mmol/L (137-145)
[2022-09-13] MEDS: CENTRAL LINE FLUSH 10 ML IV PUSH ×2 (05:05→12:55)
[2022-09-13] MEDS: POTASSIUM CHLORIDE 20 MEQ PACKET (FOR LIQUID) 40 MEQ PO (08:45)
[2022-09-13] MEDS: ENOXAPARIN 40 MG/0.4 ML SYRINGE SUB-Q (08:45)
[2022-09-13] MEDS: METOPROLOL TARTRATE 25 MG TABLET PO (08:46)
[2022-09-13] MEDS: DORZOLAMIDE HCL 2% OPHTH DROPS 1 DROP LEFT EYE ×2 (08:46→12:27)
[2022-09-13] MEDS: BRIMONIDINE TARTRATE 0.2% OP SOLN 5 ML BTL 1 DROP EACH EYE (08:46)
[2022-09-13] MEDS: TIMOLOL MALEATE 0.5% OP SOLN 5 ML BOTTLE 1 DROP EACH EYE (08:46)
[2022-09-13] MEDS: oxyBUTYnin CHLORIDE XL 5 MG TAB.ER.24 10 MG PO (08:46)
[2022-09-13] MEDS: HYDROXYCHLOROQUINE SULFATE 200 MG TABLET 400 MG PO (08:47)
[2022-09-13] MEDS: lisinopriL 10 MG TABLET BY MOUTH (10:32)
--- NOTE | 2022-09-13 11:00 | WPDUROPN2 ---
Progress Note: A&P Assessment and Plan (1) Bacteremia: Code(s): R78.81 - Bacteremia Status: Acute (2) Septic shock: Code(s): A41.9 - Sepsis, unspecified organism; R65.21 - Severe sepsis with septic shock Status: Acute (3) Acute kidney injury: Code(s): N17.9 - Acute kidney failure, unspecified Status: Acute Assessment and Plan: Discharge any time time from our standpoint Follow-up in 1-2 weeks for left ureteral stent removal Subjective Subjective Date/Time Seen: 09/13/22 11:00 No acute events overnight Review of Systems Cardiovascular: Cardiovascular: Denies chest pain, Denies lightheadedness, Denies palpitations and Denies dyspnea Respiratory: Respiratory: Denies dyspnea Gastrointestinal: Gastrointestinal: Denies diarrhea, Denies nausea and Denies vomiting Genitourinary: Genitourinary: Denies hematuria and Denies dysuria Endocrine: Endocrine: Denies palpitations Exam Const: General: no acute distress Resp: Effort & Inspection: normal respiratory effort GI: Inspection: non-distended GI Palp: No abdominal tenderness and No Guarding due to palpation present (GI) Auscultation: normal bowel sounds Objective Data Vital Signs Vital Signs: Vital Signs - 24 hr 09/12/22 12:00 09/12/22 12:00 09/12/22 16:00 Temperature 98.3 F 98.1 F Pulse Rate 59 L 81 89 Respiratory Rate 14 16 Blood Pressure 148/80 H 158/93 H Pulse Oximetry 94 96 09/12/22 16:00 09/12/22 20:51 09/12/22 20:00 Temperature Pulse Rate 87 94 93 Respiratory Rate Blood Pressure Pulse Oximetry 09/12/22 20:00 09/13/22 00:00 09/13/22 00:00 Temperature 99.3 F 98.9 F Pulse Rate 96 68 62 Respiratory Rate 18 20 Blood Pressure 160/98 H 138/66 Pulse Oximetry 94 94 09/13/22 04:00 09/13/22 04:00 09/13/22 08:46 Temperature 98.2 F Pulse Rate 71 67 94 Respiratory Rate 16 Blood Pressure 174/71 H Pulse Oximetry 93 09/13/22 09:00 Temperature 98.4 F Pulse Rate 62 Respiratory Rate 16 Blood Pressure 162/80 H Pulse Oximetry 59 L Intake/Output Intake/Output: Intake & Output 09/10/22 09/11/22 09/12/22 09/13/22 23:59 23:59 23:59 23:59 Intake Total 4787 3220 2624 1540 Output Total 2251 3900 4000 3800 Balance 0305 -593 -9411 -9538 Meds/Results Medications: Active Medications Generic Name Dose Route Start Last Admin Trade Name Freq PRN Reason Stop Dose Admin Hydrocodone Bitart/Acetaminophen 1 tab 09/07/22 21:38 Hydrocodone/Acetaminophen (*Crx) 5-325 Mg Tablet PO Q4H PRN Pain Rated 1-6 Albuterol 2.5 mg 09/08/22 12:46 09/08/22 15:19 Albuterol Sulfate Neb 2.5 Mg/3 Ml Inh INHALATION 2.5 mg Q4HRT PRN Administration Shortness Of Breath wheezing Brimonidine Tartrate 1 drop 09/07/22 21:50 09/13/22 08:46 Brimonidine Tartrate 0.2% Op Soln 5 Ml Btl EACH EYE 1 drop Q12HR MART Administration Diclofenac Sodium 1 applic 09/08/22 15:12 Diclofenac Sodium 1% 100 Gm Gel (*Bkc) TOPICAL QID PRN Pain Dorzolamide HCl 1 drop 09/07/22 21:50 09/13/22 08:46 Dorzolamide Hcl 2% Ophth Drops LEFT EYE 1 drop TID MART Administration Enoxaparin Sodium 40 mg 09/09/22 09:00 09/13/22 08:45 Enoxaparin 40 Mg/0.4 Ml Syringe SUB-Q 40 mg DAILY MART Administration Hydroxychloroquine Sulfate 400 mg 09/08/22 09:00 09/13/22 08:47 Hydroxychloroquine Sulfate 200 Mg Tablet PO 400 mg DAILY MART Administration Hyoscyamine 0.125 mg 09/07/22 21:38 Hyoscyamine Sulfate 0.125 Mg Tablet SUBLINGUAL Q6H PRN Bladder Spasm Ampicillin Sodium 2 gm in 100 mls @ 200 mls/hr 09/11/22 17:00 09/13/22 08:45 Ampicillin 2 Gm/Ns 100 Ml IVPB 200 mls/hr Q4HR MART Administration Ipratropium [place] 0.5 mg 09/08/22 12:46 09/08/22 15:19 Ipratropium Br 0.02% Inh Soln 0.5 Mg/2.5 Ml Vial INHALATION 0.5 mg Q4HRT PRN Administration Wheezing or shortness of breath Latanoprost 1 drop 09/07/
--- NOTE | 2022-09-13 11:43 | PM.DS ---
DS: Admitting Diagnosis Discharge Date September 13, 2022 Admitting Diagnosis UTI and ureteral stone DS: Discharge Diagnosis Discharge Diagnosis (1) Bacteremia: Code(s): R78.81 - Bacteremia Status: Acute (2) Complicated UTI (urinary tract infection): Code(s): N39.0 - Urinary tract infection, site not specified Status: Acute (3) Septic shock: Code(s): A41.9 - Sepsis, unspecified organism; R65.21 - Severe sepsis with septic shock Status: Acute (4) Acute kidney injury: Code(s): N17.9 - Acute kidney failure, unspecified Status: Acute (5) Metabolic encephalopathy: Code(s): G93.41 - Metabolic encephalopathy Status: Acute (6) Sepsis: Qualifiers: Sepsis type: sepsis due to unspecified organism Sepsis acute organ dysfunction status: with acute organ dysfunction Severe sepsis acute organ dysfunction type: encephalopathy Code(s): A41.9 - Sepsis, unspecified organism Status: Acute (7) Left ureteral calculus: Code(s): N20.1 - Calculus of ureter Status: Acute Plan 76 years old M with PMH of HTN admitted after elective ?ESWL for a large renal calculus with subsequent ureteral fragments,Postoperatively he has had intense dysuria with frequency urgency and generalized weakness.? In light of that he was admitted for overnight observation initially. Hospital course was complicated with septic shock, blood culture grew enterococcus fecalis Hospital course had Afibb with RVR, STEVENSON. 1)septic shock ?resulting from complicated UTI and kidney stone Urine culture and blood culture grew enterococcus fecalis Continue Ampicillin duration will be 2 weeks from negative culture (also patient can go on Linezolid on discharge) Await repeat blood culture to finalize before discharge 2)?acute encephalopathy Resolved ?3)AFib RVR Continue metoprolol 25 mg b.i.d. p.o. Previous Hospitalist Discussed anticoagulation and patient declined starting any until he has discussed with his PCP 4)?acute renal failure ?Resolved 5)DVT ppx:Lovenox 6)Code:Full 7)Dispo:Anticipate discharge in next 48-72 hours DS: Summary Hospital Course Hospital Course: Patient admitted for ureteral stone and found have UTI and bacteremia. Stent was placed will need follow-up with Urology. Cultures did grow Enterococcus. Patient was sent home on 12 days of linezolid Time Spent with Patient Time attestation: Total time spent providing and/or coordinating discharge services: Exam Narrative: General: Pt is alert awake and in NAD Lungs/Chest: Decreased air movement bilaterally, no crackles, Cardiac: RRR. Normal S1 S2. No murmurs Circulation: Pedal pulses are intact and symmetrical. Abdomen: Normal bowel sounds.? Obese. Soft. NT. ND. Extremities: No clubbing, cyanosis or edema. Warm : [place] in place Neurologic: Follows commands. Moves all 4 extremities? Skin:? Varicose veins in legs DS: Data Data Completed and Pending Completed studies during hospitalization: Pending at discharge 09/07/22 15:22 Surgical [PTH] Routine Labs on day of discharge: Labs from last 24 hours 09/13/22 09/13/22 03:51 03:51 WBC 7.8 RBC 2.97 L Hgb 10.4 L Hct 30.7 L MCV 103.4 H MCH 35.0 H MCHC 33.9 RDW 13.4 Plt Count 124 L MPV 9.4 Sodium 138 Potassium 3.0 L Chloride 106 Carbon Dioxide 28 Anion Gap 4 L BUN 16 Creatinine 1.00 Estim Creat Clear Calc 70 Estimated GFR > 60 Glucose 107 Calcium 7.8 L Magnesium 1.7 Total Bilirubin 0.8 AST 42 ALT 62 H Alkaline Phosphatase 73 Total Protein 6.0 L Albumin 3.0 L Preliminary micro results at discharge 09/11/22 11:01 Blood Culture - Preliminary Blood 09/11/22 11:01 Blood Culture - Preliminary Blood 09/10/22 10:00 Blood Culture - Preliminary Blood 09/10/22 09:59 Blood Culture - Preliminary Blood Discharge Plan Discharge Attending physician
[2022-09-13] MEDS: ALBUTEROL SULFATE NEB 2.5 MG/3 ML INH INHALATION (13:26)
[2022-09-13] MEDS: IPRATROPIUM BR 0.02% INH SOLN 0.5 MG/2.5 ML VIAL INHALATION (13:26)
== END 2022-09-13 17:50 | DRG 853 ==
LOC: ANHIMU 21:39 → ANH3MEDSUR 09-11 14:00
PROVIDERS: Hospitalist; Internal Medicine; Admitting Provider Urology; PCP Family Medicine; Visit Provider Chiropractor
PROC: 0TC78ZZ Extirpation of Matter from Left Ureter, Via Natural or Artificial Opening Endoscopic (ICD-10-PCS; CPT 52352; principal; 2022-09-07 14:30)
DX: A41.9 Sepsis, unspecified organism (principal); G93.41 Metabolic encephalopathy; R65.21 Severe sepsis with septic shock; N39.0 Urinary tract infection, site not specified; N20.1 Calculus of ureter; N17.9 Acute kidney failure, unspecified; J44.1 Chronic obstructive pulmonary disease with (acute) exacerbation; B95.2 Enterococcus as the cause of diseases classified elsewhere; I10 Essential (primary) hypertension; Z20.822 Contact with and (suspected) exposure to COVID-19; M19.90 Unspecified osteoarthritis, unspecified site; N32.81 Overactive bladder; I48.0 Paroxysmal atrial fibrillation; M05.79 Rheumatoid arthritis with rheumatoid factor of multiple sites without organ or systems involvement; E55.9 Vitamin D deficiency, unspecified; R73.03 Prediabetes; E66.9 Obesity, unspecified; Z68.31 Body mass index [BMI] 31.0-31.9, adult; Z86.16 Personal history of COVID-19; Z85.46 Personal history of malignant neoplasm of prostate; Z86.73 Personal history of transient ischemic attack (TIA), and cerebral infarction without residual deficits; Z87.442 Personal history of urinary calculi; Z90.49 Acquired absence of other specified parts of digestive tract; Z98.42 Cataract extraction status, left eye; Z87.891 Personal history of nicotine dependence
CPT/HCPCS: 36415; 36569; 36600; 70450; 71045; 74420; 76775; 80048; 80053; 80202; 81001; 82140; 82365; 82550; 82805; 82948; 83605; 83735; 83880; 84439; 84443; 84480; 85025; 85027; 85055; 85652; 86140; 87040; 87086; 87147; 87181; 87186; 87637; 88300; 93005; 94640; 96375; 97110; 97161; 97165; 97530; 97535; A9270; C1751; C1769; C2617; C8929; G0378; G0379; J0131; J0290; J0295; J0690; J0696; J1580; J1650; J2001; J2175; J2405; J2704; J2930; J3010; J3370; J7030; J7120; J7121; Q9957

== ENCOUNTER 2022-09-18 20:13 | Observation (INO) | payer MEDICARE, SELFPAY ==
--- NOTE | ~2022-09-18 | XR_ITS ---
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 RESULT: Lines, tubes, and devices: None. Lungs and pleura: Low volumes with crowding. Streaky bibasilar atelectasis/scar. Cardiomediastinal silhouette: Stable. Other: No acute osseous or upper abdominal finding. IMPRESSION: No acute cardiopulmonary process. Reviewed, dictated and finalized at location K. R VEHICLE DISPATCHER
--- NOTE | ~2022-09-18 | CT_ITS ---
EXAMINATION: CTA brain carotid DATE: 09/18/2022 21:31 INDICATION: tia TECHNIQUE: Computed tomographic angiography (CTA) of the head was performed without and with 100 mL O mnipaque-350 intravenous contrast. CTA of the neck was performed with intravenous contrast. Automated exposure control and iterative reconstruction technique were employed. The dose-length product was 1 820.70 mGy-cm. Maximum intensity projection and volume rendered 3D-reconstructions were created by yue cash technologist on a separate workstation. COMPARISON: CT brain 09/07/2022. FINDINGS: CT BRAIN: No acute large vessel infarct, intracranial hemorrhage, mass, or hydrocephalus. Moderate atrophy and chronic white matter change. CTA HEAD: No large vessel occlusion, aneurysm, high flow vascular malformation, nidus or extravasation. Basilar dolichoectasia. Mild cavernous carotid calcifications, without significant stenosis. Persistent feta l origin of the left posterior cerebral artery. Congenitally absent right A1 segment, both anterior c erebral arteries take their origin from the left circulation. Patent intracerebral veins. Symmetric p arenchymal enhancement. CTA NECK: Aortic arch and proximal great vessels: Mild calcified plaque at the aortic arch. Right common carotid, carotid bifurcation, and internal carotid artery: Mild calcified plaque at the bifurcation.There is 0% stenosis of the proximal right internal carotid artery relative to normal dis jose artery lumen diameter (NASCET criteria). Left common carotid, carotid bifurcation, and internal carotid artery: Mild calcified plaque at the b ifurcation.There is 0% stenosis of the proximal left internal carotid artery relative to normal dista l artery lumen diameter (NASCET criteria). Vertebral arteries: No significant plaque or stenosis. Mild calcification at the origin of the left v ertebral artery, with mild stenosis. The left vertebral artery is dominant. Other findings: Multiple subcentimeter thyroid hypodensities which require no additional workup. Rete ntion cyst or polyp in the right maxillary sinus. Multilevel degenerative change in the cervical spin e. Senescent changes in the lungs. IMPRESSION: No acute intracranial process. No acute large vessel occlusion. No significant carotid or vertebral s tenosis. Reviewed, dictated and finalized at location K. ER CRANE OPERATOR IMPRESSION: No acute intracranial process. No acute large vessel occlusion. No significant carotid or vertebral stenosis.
--- NOTE | ~2022-09-18 | MR_ITS ---
EXAMINATION: MR brain/brain stem wo/w con DATE: 09/19/2022 08:37 INDICATION: Aphasia. TECHNIQUE: Magnetic resonance imaging (MRI) of the brain and brainstem was performed without and with 20 mL MultiHance intravenous contrast. COMPARISON: Brain MRI 10/27/2019, head CT 09/18/2022 FINDINGS: There is no intracranial hemorrhage, acute infarction, or abnormal intracranial mass lesion . There are scattered areas of nonspecific increased T2-weighted signal intensity in the cerebral whi te matter, bilateral basal ganglia, and krunal. The ventricles are normal in size. There is mild mucosa l thickening in the paranasal sinuses. There are likely changes of left ocular lens replacement surge ry. The mastoid air cells are normal. IMPRESSION: 1. Stable moderate nonspecific cerebral white matter disease and disease of the bilateral basal gangl ia and krunal, which likely represents chronic small vessel ischemic disease. Reviewed, dictated and finalized at location A. AGING SUPERVISOR IMPRESSION: 1. Stable moderate nonspecific cerebral white matter disease and disease of the bilateral basal ganglia and krunal, which likely represents chronic small vessel ischemic disease.
[2022-09-18 20:13] VITALS: BP 151/86; PULSE 76; RESP 18; TEMP 36.8; O2SAT 96
[2022-09-18 20:22] VITALS: PULSE 77
--- NOTE | 2022-09-18 20:32 | ECG_ITS ---
Measurements Intervals [place] Rate: 81 P: IL: 0 QRS: 16 QRSD: 169 T: -46 QT: 422 QTc: 490 Interpretive Statements SINUS RHYTHM WITH PREMATURE ATRIAL COMPLEXEX AND PREMATURE VENTRICULAR CONTRACTIONS RIGHT BUNDLE BRANCH BLOCK [120+ ms QRS DURATION, UPRIGHT V1, 40+ ms S IN I/aVL/V4/V5/V6] NONSPECIFIC ST AND T WAVE ABBNORMALITY COMPARED TO ECG 09/07/2022 20:39:52 SINUS RHYTHM PRESENT Electronically Signed On 09-19-2022 11:34:13 POLL WATCHER by Kofi Wagner M.D.
[2022-09-18 20:52] LABS: Basophils Percent Auto 0.7 % (0.2-1.2); Eosinophils Absolute Auto 0.1 K/mm3 (0-0.3); Eosinophils Percent Auto 1.7 % (0-4.4); Hematocrit 35.5 % (42.0-52.0); Hemoglobin 11.8 g/dL (14.0-18.0); Immature Granulocyte Absolute 0.03 K/mm3 (0.00-0.031); Immature Granulocyte Percent A 0.5 % (0-0.5); Lymphocytes Absolute Auto 0.64 K/mm3 (0.9-3.2); Lymphocytes Percent Auto 11.1 % (18.3-44.2); Mean Corpuscular HGB Conc 33.2 g/dl (32-36); Mean Corpuscular Hemoglobin 34.6 pg (26-34); Mean Corpuscular Volume 104.1 fl (80-100); Mean Platelet Volume 9.5 fl (7.4-10.4); Monocytes Absolute Auto 0.5 K/mm3 (0.1-0.6); Monocytes Percent Auto 9.4 % (2.6-8.5); Neutrophils Absolute Auto 4.4 K/mm3 (1.3-6.7); Neutrophils Percent Auto 76.6 % (45.5-73.1); Platelet Count Result 184 k/mm3 (150-375); Red Blood Count 3.41 M/mm3 (4.6-6.20); Red Cell Distribution Width 13.7 % (11.5-14.5); White Blood Count 5.7 K/mm3 (4.5-10.0)
[2022-09-18 21:01] LABS: Appearance Urine Clear (Clear); Bilirubin Urine Negative (Negative); Blood Urine 2+ (Negative); Color Urine Yellow (Yellow); Glucose Urine UA Negative (Negative); Ketones Urine Negative (Negative); Leukocyte Esterase Ur Negative LEU/UL (Negative); Nitrate Urine Negative (Negative); Protein Urine 2+ mg/dL (Negative); Urobilinogen Urine 0.2 mg/dL (<2.0)
[2022-09-18 21:06] LABS: INR 1.1
[2022-09-18 21:07] LABS: Alanine Aminotransferase 35 U/L (6-50); Albumin Level 3.8 g/dL (3.5-5.1); Alkaline Phosphatase 70 U/L (38-126); Anion Gap 7 mmol/L (8-16); Aspartate Amino Transferase 31 U/L (17-59); Bilirubin,Total 0.7 mg/dL (0.2-1.3); Blood Urea Nitrogen 19 mg/dL (9-20); Calcium 8.4 mg/dL (8.4-10.2); Carbon Dioxide 24 mmol/L (22-30); Chloride 106 mmol/L (98-107); Estimated CRCL calculation 54 ml/min; Estimated Glomerular Filt Rate 59; Glucose 117 mg/dL (65-110); Potassium 3.4 mmol/L (3.4-5.0); Sodium 137 mmol/L (137-145)
--- NOTE | 2022-09-18 21:07 | ED.NEUROSD ---
HPI - Neuro Symptoms/Deficit General Chief Complaint: Neuro Symptoms/Deficit Stated Complaint: neuro symptoms Time Seen by Provider: 09/18/22 20:21 Source: patient, EMS and RN notes reviewed Mode of arrival: EMS Limitations: no limitations History of Present Illness HPI Narrative: This is a 76 year old male with history of sepsis, PE, hypertension [facility] speaking. Patient states around 1800 he was having difficulty speaking and trouble with word finding. He states this last approximately 1 hour but now his symptoms have completely resolved. He denies other symptoms such as headache, dizziness, focal weakness, numbness tingling or blurred vision. He denies history of CVA but he thinks he may have suffered TIA over 15 years ago. His states patient has acting similarly when he has been septic from a UTI. He was discharged from [facility] to Rehab 4 days ago after hospitalization for sepsis after urology procedure. Patient denies any complaints now. He notes he took eliquis in the past for history PE but denies history of afib. Related Data Home Medications Medication Instructions Recorded Confirmed cholecalciferol (vitamin D3) 125 125 mcg PO DAILY 08/29/22 09/19/22 mcg (5,000 unit) capsule folic acid 400 mcg tablet See Rx Instructions .Route .COMPLEX 09/15/22 09/19/22 lisinopril 10 mg tablet 10 mg PO DAILY 09/15/22 09/19/22 tamsulosin 0.4 mg capsule 0.4 mg PO HS 09/15/22 09/19/22 Allergies Allergy/AdvReac Type Severity Reaction Status Date / Time No Known Drug Allergies Allergy Mild unknown Verified 09/18/22 20:23 Review of Systems Constitutional: Constitutional: Denies weakness Cardiovascular: Cardiovascular: Denies syncope, Denies rapid heart rate, Denies irregular heart rhythm, Denies leg edema and Denies dyspnea Respiratory: Respiratory: Denies chest congestion, Denies hemoptysis, Denies excessive phlegm production and Denies dyspnea Gastrointestinal: Gastrointestinal: Denies abdominal pain, Denies hematochezia, Denies diarrhea and Denies vomiting Genitourinary: Genitourinary: Denies hematuria, Denies dysuria, Denies penile discharge and Denies testicular pain Musculoskeletal: Musculoskeletal: Denies joint swelling, Denies loss of height and Denies muscle weakness Neurologic: Reports Abnormal speech present, Denies syncope, Denies focal weakness and Denies weakness PMFSH Past Medical History Medical History Bacteremia (~10/2019) UTI with bacteremia, CNSS not saprophyticus. Khoury palsy (~2018) Chronic venous insufficiency of lower extremity COVID-19 Essential hypertension Glaucoma Gout Hepatic steatosis Hypogonadism in male Uses testosterone gel. Kidney stones Left ureteral stone Osteoarthritis Overactive bladder Paroxysmal atrial fibrillation (~10/2019) associated with sepsis Pre-diabetes Hemoglobin A1c was 6.3% in April 2019. Prostate cancer Pulmonary embolism 02/[address] scan performed for staging of prostate cancer bilateral lower lobe and middle lobe pulmonary embolism Retinal vein occlusion of left eye Rheumatoid arthritis with rheumatoid factor of multiple sites without organ or systems involvement Transient ischemic attack (~2014) Ureterolithiasis Vitamin D deficiency Surgical History Surgical History History of appendectomy (~1957) History of cystoscopy (~05/2022) cystoscopy, left retrograde pyelography and left ureteral stent placement History of left cataract surgery (~2009) Hx of lithotripsy (~04/2022) Left ESWL Family History Family History Other Acute myocardial infarction Diabetes mellitus Heart disease Hypertension Social History Social History Social History: The abdulkadir
[2022-09-18 21:17] LABS: Glucose Point of Care 103 mg/dl (65-105)
[2022-09-18 21:18] LABS: Troponin I < 0.012 ng/mL (0.000-0.034)
[2022-09-18 21:19] LABS: Bacteria Urine Trace /hpf
[2022-09-18 21:20] LABS: Add Urine Microscopic? YES
[2022-09-18 21:40] VITALS: BP 168/94; PULSE 83; RESP 20; O2SAT 100
[2022-09-18 22:27] VITALS: BP 120/61; PULSE 79; RESP 15; O2SAT 96
[2022-09-18] MEDS: ASPIRIN 81 MG CHEWABLE TABLET 324 MG PO (23:36)
[2022-09-19] VITALS (12 sets, daily range): BP systolic 104–158; BP diastolic 56–93; PULSE 64–94; RESP 14–25; TEMP 36.1–36.6; O2SAT 94–96
[2022-09-19 00:18] LABS: Influenza A QL RT-PCR Negative (Negative); Influenza B QL RT-PCR Negative (Negative); SARS-CoV-2 RNA PCR Negative
--- NOTE | 2022-09-19 01:20 | ADMGEN ---
This patient, Shant Zaman, was admitted to [facility] Surg Room 323-02. Patient/family oriented to hospital policies and general routines including ID bracelet, bed and alarms, visiting hours, pain management, procedures, bathroom and other care routines, personal items, smoking policy, room service/diet, and visiting hours. Information on how to activate the Rapid Response Team has been discussed. Patient/Family are encouraged to report perceived risks to care and to ask questions if they do not understand what they are told or what they should do.
--- NOTE | 2022-09-19 07:04 | PC.NURSE ---
Reviewed MRI screening form with patient and (via phone). Patient and verbalized understanding and voicing no further questions or concerns.
[2022-09-19 07:43] LABS: Glucose Point of Care 113 mg/dl (65-105)
[2022-09-19] MEDS: METOPROLOL TARTRATE 50 MG TAB PO ×2 (10:20→20:22)
[2022-09-19] MEDS: lisinopriL 10 MG TABLET PO (10:20)
[2022-09-19] MEDS: oxyBUTYnin CHLORIDE XL 5 MG TAB.ER.24 10 MG PO (10:20)
[2022-09-19] MEDS: ASPIRIN 81 MG CHEWABLE TABLET PO (10:20)
[2022-09-19] MEDS: HYDROXYCHLOROQUINE SULFATE 200 MG TABLET 400 MG PO (10:21)
[2022-09-19] MEDS: CHOLECALCIFEROL 1,000 UNITS TABLET 5000 UNITS PO (10:21)
--- NOTE | 2022-09-19 10:41 | PM.IMHP ---
H&P: HPI History of Present Illness Date/Time: 09/19/22 10:41 Chief Complaint: 30minute. Yesterday where he developed expressive aphasia. Resolve spontaneously. Currently he has no symptoms. No focal deficits Review of Systems Review of Systems: 10 point review systems negative except as stated in HPI [facility] Past Medical History Medical History Bacteremia (~10/2019) UTI with bacteremia, CNSS not saprophyticus. Khoury palsy (~2018) Chronic venous insufficiency of lower extremity COVID-19 Essential hypertension Glaucoma Gout Hepatic steatosis Hypogonadism in male Uses testosterone gel. Kidney stones Left ureteral stone Osteoarthritis Overactive bladder Paroxysmal atrial fibrillation (~10/2019) associated with sepsis Pre-diabetes Hemoglobin A1c was 6.3% in April 2019. Prostate cancer Pulmonary embolism 02/[address] scan performed for staging of prostate cancer bilateral lower lobe and middle lobe pulmonary embolism Retinal vein occlusion of left eye Rheumatoid arthritis with rheumatoid factor of multiple sites without organ or systems involvement Transient ischemic attack (~2014) Ureterolithiasis Vitamin D deficiency Surgical History Surgical History History of appendectomy (~1957) History of cystoscopy (~05/2022) cystoscopy, left retrograde pyelography and left ureteral stent placement History of left cataract surgery (~2009) Hx of lithotripsy (~04/2022) Left ESWL Family History Family History Other Acute myocardial infarction Diabetes mellitus Heart disease Hypertension Social History Social History Social History: The patient lives in [place] with his . They have 3 sons and 1 daughter. He smoked up to 3 packs of cigarettes per day and quit 1995. No alcohol or drug abuse. 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 [employer] Code status: Full code Surrogate decision maker: Dariusz () Smoking packs per day: 1.5 Smoking cigarettes per day: 30.0 Years smoked: 34 Smoking pack-years: 51.00 Smoking status: Former smoker Tobacco type: cigarettes Second hand tobacco smoke exposure: No Smoking end date: 07/23/11 Additional smoking assessment comments: pt states he started smoking at age 20 Alcohol intake: never Alcohol use details: occasional glass of wine Substance use: never Substance use type: does not use Lack of Transportation: No Lack of Food: Never True Current Housing: I Have Housing Concerned About Future Housing: No Difficulty Paying Gas/Electric Bills: No Difficulty Paying for Meds: No Currently Unemployed: No Education: High School Diploma/GED Difficulty w/ Childcare or Family Care: No Living arrangements: with family Additional living arrangements comments: - [facility] Gender identity (if verbalized by the patient): Male Spiritual care concerns: No Agree to blood products: Yes Meds Home Medications and Allergies Home Medications Medication Instructions Recorded Confirmed Type hydroxychloroquine 200 mg tablet 400 mg PO DAILY #180 tabs 05/09/22 09/19/22 Rx oxybutynin chloride 10 mg 10 mg PO DAILY #90 tabs 08/23/22 09/19/22 Rx tablet,extended release 24 hr cholecalciferol (vitamin D3) 125 125 mcg PO DAILY 08/29/22 09/19/22 History mcg (5,000 unit) capsule metoprolol tartrate 50 mg tablet 50 mg PO BID #180 tabs 09/14/22 09/19/22 Rx folic acid 400 mcg tablet See Rx Instructions .Route .COMPLEX 09/15/22 09/19/22 History lisinopril 10 mg tablet 10 mg PO DAILY 09/15/22 09/19/22 History tamsulosin 0.4 mg capsule 0.4 mg PO HS 09/15/22 09/19/22 History Allergies Allergy/AdvReac Type Severity Reaction Status Date / Time No Known Drug Allergies Allergy Mild unknown V
[2022-09-19 11:42] LABS: Glucose Point of Care 126 mg/dl (65-105)
[2022-09-19 16:28] LABS: Glucose Point of Care 105 mg/dl (65-105)
[2022-09-19] MEDS: TAMSULOSIN HCL 0.4 MG CAPSULE PO (20:21)
--- NOTE | 2022-09-19 20:25 | PC.NURSE ---
Pt went for an MRI this morning. Pt has had no complaints of pain and participated and contributed in plan of care. Pt had new IV placed today, pt tolerated well. Pt monitored for any changes in status.
[2022-09-20] VITALS: PULSE 71
[2022-09-20 04:29] VITALS: PULSE 77
[2022-09-20 04:32] VITALS: BP 143/76; PULSE 62; RESP 14; TEMP 36.2; O2SAT 95
[2022-09-20 08:00] VITALS: PULSE 121
[2022-09-20] MEDS: CHOLECALCIFEROL 1,000 UNITS TABLET 5000 UNITS PO (08:08)
[2022-09-20 08:09] VITALS: PULSE 72
[2022-09-20] MEDS: HYDROXYCHLOROQUINE SULFATE 200 MG TABLET 400 MG PO (08:09)
[2022-09-20] MEDS: METOPROLOL TARTRATE 50 MG TAB PO (08:09)
[2022-09-20] MEDS: oxyBUTYnin CHLORIDE XL 5 MG TAB.ER.24 10 MG PO (08:09)
[2022-09-20] MEDS: lisinopriL 10 MG TABLET PO (08:09)
[2022-09-20] MEDS: ASPIRIN 81 MG CHEWABLE TABLET PO (08:09)
[2022-09-20 09:01] VITALS: PULSE 76; O2SAT 95
--- NOTE | 2022-09-20 10:33 | PM.DS ---
DS: Admitting Diagnosis Discharge Date 09/20/2022 Admitting Diagnosis aphasia DS: Discharge Diagnosis Discharge Diagnosis (1) COPD (chronic obstructive pulmonary disease): Code(s): J44.9 - Chronic obstructive pulmonary disease, unspecified Status: Acute Assessment and Plan: Chronic stable (2) Prostate cancer: Code(s): C61 - Malignant neoplasm of prostate Status: Acute Assessment and Plan: No acute issues, history of (3) Essential hypertension: Code(s): I10 - Essential (primary) hypertension Status: Chronic Assessment and Plan: Monitor blood pressure, continue home meds (4) Vitamin D deficiency: Code(s): E55.9 - Vitamin D deficiency, unspecified Status: Acute (5) Aphasia: Code(s): R47.01 - Aphasia Status: Acute Assessment and Plan: Resolved Will await workup. PTOT evaluation. Likely discharge tomorrow for workup negative DS: Summary Hospital Course Reason for hospitalization: 30minute.? Yesterday where he developed expressive aphasia. Resolve spontaneously. Currently he has no symptoms. No focal deficits Hospital Course: patient is a 76-year-old male dilated intestine acute rehab patient developed aphasia, stated for about an 1 hour patient was not able to speak and difficulty finding word, however now his symptoms have resolved, to further evaluate patient had a MRI of the brain essentially normal for any acute injury and CTA of the head did not show any stenosis, patient is clinically stable now his baseline will discharge the patient today. Time Spent with Patient Time attestation: Total time spent providing and/or coordinating discharge services: Exam Narrative: morbidly obese Patient is comfortable, NAD HEENT: eyes are clear and none icteric LUNGS:CTA HEART: RR S1S2 ABD: BS+, Soft and nontender Lower extremities: no edema SKIN: nonjaundiced Neuro: grossly intact. DS: Data Data Completed and Pending Labs on day of discharge: Labs from last 24 hours 09/19/22 09/19/22 16:21 11:37 POC Capillary Glucose 105 126 H Discharge Plan Discharge Attending physician on discharge: Adolfo Mccarty Consulting providers: Kofi Wagner ; Benton Dodson ; Jaciel Arroyo V. Discharging Clinician: Adolfo Mccarty Patient Disposition: Inpatient Rehab Facility Activity: as tolerated Diet: heart healthy Discharge Instructions: Patient to follow up with his primary care provider as soon as possible Stand Alone Forms: General Discharge Information Follow-up/Referrals: Bubba Cho MD [Primary Care Provider] - Discharge Medications: New aspirin [Children's Aspirin] 81 mg Tablet,Chewable 81 mg PO DAILY@0800 Qty: 30 0RF Continued hydroxychloroquine 200 mg tablet 400 mg PO DAILY Qty: 180 1RF cholecalciferol (vitamin D3) 125 mcg (5,000 unit) Capsule 125 mcg PO DAILY oxybutynin chloride 10 mg tablet extended release 24hr 10 mg PO DAILY Qty: 90 1RF metoprolol tartrate 50 mg tablet 50 mg PO BID Qty: 180 1RF folic acid 400 mcg Tablet See Rx Instructions .ROUTE .COMPLEX Rx Instructions: folate 660 mcg 1 tablet po once daily tamsulosin 0.4 mg Capsule 0.4 mg PO HS lisinopril 10 mg tablet 10 mg PO DAILY No Action hydrocodone-acetaminophen 5-325 mg Tablet 1 tablet PO Q6H PRN (Reason: Pain Rated 6 Or Greater) Qty: 12 0RF brimonidine 0.2 % Drops 1 drp EACH EYE BID Qty: 30 0RF dorzolamide [Trusopt] 2 % Drops 1 drp LEFT EYE TID Qty: 30 0RF diclofenac sodium 1 % Gel 1 applic topical QID PRN (Reason: Pain) Qty: 100 0RF latanoprost [Xalatan] 0.005 % Drops 1 drp EACH EYE HS Qty: 30 0RF linezolid 600 mg Tablet 600 mg PO Q12HR Qty: 10 0RF timolol maleate 0.5 % Drops 1 drp EACH EYE Q12HR Qty: 30 0RF Date of admission: 09/18/22 23:10 Primary Care Provider: Bubba Cho Admi
[2022-09-20 11:36] LABS: Glucose Point of Care 112 mg/dl (65-105)
[2022-09-20 11:37] LABS: Glucose Point of Care 120 mg/dl (65-105)
== END 2022-09-20 12:30 ==
LOC: ANHED 20:32 → ANH3MEDSUR 09-19 16:40
PROVIDERS: Internal Medicine; Admitting Provider Chiropractor; Emergency Provider General Practice; PCP Family Medicine; Visit Provider Family Medicine
DX: J44.9 Chronic obstructive pulmonary disease, unspecified (principal); C61 Malignant neoplasm of prostate; I10 Essential (primary) hypertension; E55.9 Vitamin D deficiency, unspecified; R47.01 Aphasia; Z20.822 Contact with and (suspected) exposure to COVID-19; I87.2 Venous insufficiency (chronic) (peripheral); H40.9 Unspecified glaucoma; M10.9 Gout, unspecified; K76.0 Fatty (change of) liver, not elsewhere classified; E29.1 Testicular hypofunction; I48.0 Paroxysmal atrial fibrillation; M06.9 Rheumatoid arthritis, unspecified; R53.1 Weakness; R41.0 Disorientation, unspecified; R90.82 White matter disease, unspecified; I45.10 Unspecified right bundle-branch block; Z86.73 Personal history of transient ischemic attack (TIA), and cerebral infarction without residual deficits; Z87.891 Personal history of nicotine dependence; Z86.16 Personal history of COVID-19; Z86.711 Personal history of pulmonary embolism; Z87.898 Personal history of other specified conditions; Z79.899 Other long term (current) drug therapy
CPT/HCPCS: 36415; 70496; 70498; 70553; 71045; 80053; 81001; 82948; 84484; 85025; 85610; 85730; 87636; 93005; 99285; A9270; A9577; G0378; Q9967

== ENCOUNTER 2022-11-17 20:11 | Inpatient (IN) | payer MEDICARE, SELFPAY ==
[2022-11-17] VITALS (17 sets, daily range): BP systolic 109–141; BP diastolic 73–87; PULSE 63–103; RESP 15–28; TEMP 36.8; O2SAT 94–100
--- NOTE | ~2022-11-17 | MR_ITS ---
EXAMINATION: MR brain/brain stem wo con DATE: 11/18/2022 13:59 INDICATION: Aphasia. Concern for transient ischemic episode. TECHNIQUE: Magnetic resonance imaging (MRI) of the brain and brainstem was performed without intraven ous contrast. Sequences included sagittal and axial T1-weighted SE, axial diffusion-weighted FS SE, a xial T2*-weighted GRE, axial T2-weighted FLAIR, and axial T2-weighted FSE. Apparent diffusion coeffic ient (ADC) maps were created. COMPARISON: Brain MR dated 09/19/2022 FINDINGS: There are no areas of restricted diffusion to suggest acute infarction. No intracranial hemorrhage or abnormal intracranial mass lesion. There are scattered areas of nonspecific increased T2-weighted si gnal intensity in the cerebral white matter, bilateral basal ganglia and krunal predominantly involving the deep and periventricular white matter. There are no intraparenchymal signal abnormalities seen o n the other pulse sequences. The ventricles are symmetric and normal in size. There are no abnormal e xtra-axial fluid collections. Flow voids are seen in the cerebral arteries on the T2-weighted sequenc es consistent with their expected patency. Left vertebral artery is dominant. Changes of left intraoc ular lens replacement. IMPRESSION: 1. Stable appearance of moderate scattered nonspecific cerebral, basal ganglia and pontine white roberto er T2 hyperintensity consistent with chronic small vessel ischemic disease. No acute intracranial pro cess. Reviewed, dictated and finalized at location A. IMPRESSION: 1. Stable appearance of moderate scattered nonspecific cerebral, basal ganglia and pontine white matter T2 hyperintensity consistent with chronic small vessel ischemic disease. No acute intracranial process.
--- NOTE | ~2022-11-17 | XR_ITS ---
EXAMINATION: XR abdomen/kub 1V DATE: 11/18/2022 14:04 INDICATION: Left ureteral stones TECHNIQUE: A supine view of the abdomen on 2 radiographs was obtained. COMPARISON: CT dated 11/18/2022 FINDINGS: A 4 mm and 2 mm stones identified on prior CT consistent projecting over the left sacrum inferior to the level of the sacral joint and near its lateral margin, medial to more linear left iliac atheroscl erotic calcifications. A couple phleboliths in the right hemipelvis. Prostatic calcifications project over the left pubic body. No dilated loops of gas-filled bowel to suggest obstruction. Mild lumbar d extrocurvature with moderate to severe lower lumbar predominant spondylosis. Lung bases are clear. He art size is normal. IMPRESSION: 1. Previous identified distal left ureteral stones project over the left sacrum. Reviewed, dictated and finalized at location A. IMPRESSION: 1. Previous identified distal left ureteral stones project over the left sacrum .
--- NOTE | ~2022-11-17 | CT_ITS ---
EXAMINATION: CT brain wo con DATE: 11/17/2022 22:39 INDICATION: Altered mental status. TECHNIQUE: Computed tomography (CT) of the head was performed without intravenous contrast. The mA wa s adjusted according to patient size. Iterative reconstruction technique was employed. The dose-lengt h product was 681.00 mGy-cm. COMPARISON: Head CT 09/18/2022, brain MRI 09/11/2022 FINDINGS: There are scattered areas of low attenuation in the cerebral white matter. There is no intr acranial hemorrhage, acute infarction, or abnormal intracranial mass lesion. The ventricles are austin l in size. There is mild mucosal thickening in the paranasal sinuses. There are likely changes of lef t ocular lens replacement surgery. The mastoid air cells are normal. There is cerumen in the external auditory canals. IMPRESSION: 1. Stable moderate nonspecific cerebral white matter disease, which likely represents chronic small v essel ischemic disease. Reviewed, dictated and finalized at location E. IMPRESSION: 1. Stable moderate nonspecific cerebral white matter disease, which likely repr esents chronic small vessel ischemic disease.
--- NOTE | ~2022-11-17 | CT_ITS ---
EXAMINATION: CTA BRAIN/CAROTID DATE: 11/18/2022 14:17 INDICATION: Aphasia. Concern for stroke. TECHNIQUE: Computed tomographic angiography (CTA) of the head and neck was performed with 100 mL Omni paque-350 intravenous contrast. Multiplanar reconstructions and maximum intensity projection 3D-recon structions of the carotid arteries and of the intracranial arteries were created by the technologist on a separate workstation. Precontrast CT of the head was also obtained. Automated exposure control and iterative reconstruction technique were employed.The dose-length product was 1823.82 mGy-cm. COMPARISON: None. FINDINGS: Carotid arteries: Small amount of nonhemodynamically significant atherosclerotic plaque at the normal caliber aortic ar ch with no dissection. Bovine Aortic arch with common origin of the innominate and left common caroti d arteries, a normal anatomic variant. Small amount of atherosclerotic plaque with mild stenosis at t he origin of the dominant left vertebral artery. There is a small amount of atherosclerotic plaque wi th 0% stenosis of the right carotid bulb relative to normal distal artery lumen diameter (NASCET crit eria). Additional small amount of atherosclerotic plaque with 0% stenosis of the left carotid bulb re lative to normal distal artery lumen diameter. Likely benign multinodular goiter with nodules measuri ng up to 1 cm. Cervical soft tissues are otherwise unremarkable. Minimal linear atelectasis/scarring at the posterior right upper lobe. Head: No acute intracranial hemorrhage, acute infarction or abnormal extra axial fluid collection. There is moderate scattered white matter hypoattenuation consistent with chronic small vessel ischemic diseas e. Symmetric prominence of the sulci and ventricles consistent with mild age-appropriate diffuse cere bral volume loss. No mass/mass effect. No abnormally enhancing brain lesions. Changes of left intraoc ular lens replacement. The orbits, paranasal sinuses and mastoid air cells are normal. Intracranial arteries Small amount of nonhemodynamically significant atherosclerotic plaque at the bilateral carotid siphon s. Left vertebral artery is dominant. There is no hemodynamically significant stenosis in the vertebr al, basilar and internal carotid arteries. There are no aneurysms identified. The left A1 segment is patent with the left internal carotid artery also supplying the right anterior cerebral artery via a patent anterior communicating artery. The bilateral P1 segments are patent. The left P1 segment is sm aller than the right with additional flow to the left posterior cerebral artery supplied via a patent left posterior communicating artery. Cerebral arterial arborization appears symmetric. IMPRESSION: 1. Age-related changes the brain including mild diffuse volume loss and moderate scattered white roberto er hypoattenuation consistent with chronic small vessel ischemic disease. No acute intracranial proce ss. 2. Small amount of atherosclerotic plaque with 0% stenosis of the right and left carotid bulbs relati ve to normal distal artery lumen diameter (NASCET criteria). 3. Unremarkable cerebral CT angiogram with no hemodynamically significant stenosis or aneurysm. Reviewed, dictated and finalized at location A. IMPRESSION: 1. Age-related changes the brain including mild diffuse volume loss and moderat e scattered white matter hypoattenuation consistent with chronic small vessel i schemic disease. No acute intracranial process. 2. Small amount of atherosclerotic plaque with 0% stenosis of the right and lef t carotid bulbs relative to normal distal artery lumen diameter (NASCET criteri a). 3. Unremarkable cerebral CT angiogram with no hemodynamically significant steno sis or aneurysm.
--- NOTE | ~2022-11-17 | CT_ITS ---
EXAMINATION: CT abdomen pelvis wo con DATE: 11/18/2022 05:22 INDICATION: Hematuria. TECHNIQUE: Computed tomography (CT) of the abdomen and pelvis was performed without intravenous contr ast. Automated exposure control and iterative reconstruction technique were employed. The dose-length product was 1197.90 mGy-cm. COMPARISON: CT abdomen and pelvis 05/26/2022 FINDINGS: The visualized portions of the lung bases demonstrate mild atelectasis. No pleural effusion . The heart size is normal. There are coronary artery calcifications. No pericardial effusion. There is mild bilateral gynecomastia. There is diffuse hepatic steatosis. The gallbladder, spleen, pancreas , and adrenal glands are normal. There is a 16 mm cyst in right kidney. The prostate is mildly enlarg ed. There are 4 mm and 2 mm stones in distal left ureter. There is moderate left hydronephrosis and h ydroureter. There are two 2 mm stones in left kidney. There is prominent fat in right inguinal canal that may be a hernia. There is diverticulosis of the colon without evidence of diverticulitis. There are no dilated loops of bowel. The appendix is not visualized. Aortic atherosclerosis is noted. There are no pathologically enlarged lymph nodes. There is no free intraperitoneal fluid. There is severe lumbar spondylosis and mild thoracic spondylosis. IMPRESSION: 1. 4 mm and 2 mm stones in distal left ureter with moderate left hydronephrosis and hydroureter. 2. Small nonobstructing left kidney stones. Reviewed, dictated and finalized at location E.
--- NOTE | ~2022-11-17 | XR_ITS ---
EXAMINATION: XR retrograde pyelo w/stent LT INDICATION: Left stent placement TECHNIQUE: Four intraoperative fluoroscopic images are submitted for review. Total fluoroscopic time is 26.3 seconds COMPARISON: None available FINDINGS: Fluoroscopic images demonstrate placement of a left internal ureteral stent in expected pos ition. Please refer to procedure note for full details. IMPRESSION: 1. Please refer to procedure note for full details. Reviewed, dictated and finalized at location F.
--- NOTE | 2022-11-17 20:21 | ECG_ITS ---
Measurements Intervals Lindsay Rate: 102 P: 57 MI: 186 QRS: -4 QRSD: 166 T: 71 QT: 349 QTc: 457 Interpretive Statements SINUS TACHYCARDIA WITH FREQUENT SUPRAVENTRICULAR PREMATURE COMPLEXES RIGHT BUNDLE BRANCH BLOCK [120+ ms QRS DURATION, UPRIGHT V1, 40+ ms S IN I/aVL/V4/V5/V6] COMPARED TO ECG 09/18/2022 20:57:24 SINUS TACHYCARDIA NOW PRESENT Electronically Signed On 11-18-2022 12:14:02 CDT by Kofi Wagner M.D.
[2022-11-17 20:52] LABS: Basophils Percent Auto 0.3 % (0.2-1.2); Eosinophils Absolute Auto 0.1 K/mm3 (0-0.3); Eosinophils Percent Auto 0.9 % (0-4.4); Hematocrit 37.2 % (42.0-52.0); Hemoglobin 12.4 g/dL (14.0-18.0); Immature Granulocyte Absolute 0.03 K/mm3 (0.00-0.031); Immature Granulocyte Percent A 0.3 % (0-0.5); Immature Platelet Fraction Pct 1.7 % (0.9-11.2); Lymphocytes Absolute Auto 0.44 K/mm3 (0.9-3.2); Mean Corpuscular HGB Conc 33.3 g/dl (32-36); Mean Corpuscular Hemoglobin 35.2 pg (26-34); Mean Corpuscular Volume 105.7 fl (80-100); Mean Platelet Volume 8.9 fl (7.4-10.4); Monocytes Absolute Auto 1.1 K/mm3 (0.1-0.6); Monocytes Percent Auto 9.7 % (2.6-8.5); Neutrophils Absolute Auto 9.4 K/mm3 (1.3-6.7); Neutrophils Percent Auto 84.8 % (45.5-73.1); Platelet Count Result 222 k/mm3 (150-375); Red Blood Count 3.52 M/mm3 (4.6-6.20); Red Cell Distribution Width 13.2 % (11.5-14.5)
[2022-11-17 21:03] LABS: Alanine Aminotransferase 26 U/L (6-50); Albumin Level 4.1 g/dL (3.5-5.1); Alkaline Phosphatase 53 U/L (38-126); Anion Gap 7 mmol/L (8-16); Aspartate Amino Transferase 23 U/L (17-59); Bilirubin,Total 0.7 mg/dL (0.2-1.3); Blood Urea Nitrogen 25 mg/dL (9-20); Calcium 8.8 mg/dL (8.4-10.2); Carbon Dioxide 25 mmol/L (22-30); Chloride 103 mmol/L (98-107); Estimated CRCL calculation 63 ml/min; Estimated Glomerular Filt Rate > 60; Glucose 140 mg/dL (65-110); Potassium 3.9 mmol/L (3.4-5.0); Sodium 135 mmol/L (137-145)
[2022-11-17 21:08] LABS: Anisocytosis 1+ (NORMAL); Macrocytosis 1+ (NORMAL); Ovalocytes 1+ (NORMAL); Platelet Estimate Adequate (Adequate); Schistocytes None Seen (NORMAL)
--- NOTE | 2022-11-17 21:12 | ED.MALEGU ---
HPI - Male Genitourinary General Chief complaint: Urogenital-Male <Miki Roberts MD - Last Filed: 11/17/22 21:58> Stated complaint: UTI? <Miki Roberts MD - Last Filed: 11/17/22 21:58> Time Seen by Provider: 11/17/22 20:17 <Miki Roberts MD - Last Filed: 11/17/22 21:58> History of Present Illness HPI Narrative: Patient is a 76-year-old male who presents ER with altered mental status and concern for UTI. Patient has history of UTI in the past that has caused confusion. Patient began to become disoriented today according to family. He is currently oriented to self and place but does not know why he is here. He believes it is 2042. He denies any complaints at this time. On 09/07/22 patient had a urinalysis that grew out Enterococcus that was sensitive to ampicillin, vancomycin, and Macrobid. <Miki Roberts MD - Last Filed: 11/17/22 21:58> Related Data Home medications: Home Medications Medication Instructions Recorded Confirmed folic acid 400 mcg tablet 400 mcg PO DAILY 09/15/22 11/18/22 lisinopril 10 mg tablet 10 mg PO DAILY 09/15/22 11/18/22 tamsulosin 0.4 mg capsule 0.4 mg PO HS 09/15/22 11/18/22 cholecalciferol (vitamin D3) 125 250 mcg PO DAILY 11/18/22 11/18/22 mcg (5,000 unit) tablet (Vitamin D3) folic acid 400 mcg tablet 0.4 mg PO DAILY 11/18/22 11/18/22 <Miki Roberts MD - Last Filed: 11/17/22 21:58> Allergies/Adverse reactions: Allergies Allergy/AdvReac Type Severity Reaction Status Date / Time No Known Drug Allergies Allergy Mild unknown Verified 11/17/22 21:05 <Miki Roberts MD - Last Filed: 11/17/22 21:58> Review of Systems Review of Systems: ROS unobtainable: Yes unobtainable due to mental status <Miki Roberts MD - Last Filed: 11/17/22 21:58> [facility] Past Medical History Medical History: Medical History Bacteremia (~10/2019) UTI with bacteremia, CNSS not saprophyticus. Khoury palsy (~2018) Chronic venous insufficiency of lower extremity COVID-19 Essential hypertension Glaucoma Gout Hepatic steatosis Hypogonadism in male Uses testosterone gel. Kidney stones Left ureteral stone Osteoarthritis Overactive bladder Paroxysmal atrial fibrillation (~10/2019) associated with sepsis Pre-diabetes Hemoglobin A1c was 6.3% in April 2019. Prostate cancer Pulmonary embolism 02/[address] scan performed for staging of prostate cancer bilateral lower lobe and middle lobe pulmonary embolism Retinal vein occlusion of left eye Rheumatoid arthritis with rheumatoid factor of multiple sites without organ or systems involvement Transient ischemic attack (~2014) Ureterolithiasis Vitamin D deficiency <Miki Roberts MD - Last Filed: 11/17/22 21:58> Surgical History Surgical History: Surgical History History of appendectomy (~1957) History of cystoscopy (~05/2022) cystoscopy, left retrograde pyelography and left ureteral stent placement History of left cataract surgery (~2009) Hx of lithotripsy (~04/2022) Left ESWL <Miki Roberts MD - Last Filed: 11/17/22 21:58> Family History Family History: Family History Father Diabetes mellitus Acute myocardial infarction Heart disease Hypertension <Miki Roberts MD - Last Filed: 11/17/22 21:58> Social History Social History: Social History Social History: The patient lives in [place] with his . They have 3 sons and 1 daughter. He smoked up to 3 packs of cigarettes per day and quit 1995. No alcohol or drug abuse. 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
[2022-11-17 21:57] LABS: INR 1.1; Partial Thromboplastin Time 20.5 SECONDS (22.3-36.8); Prothrombin Time 14.4 Seconds (11.1-14.7)
[2022-11-17 22:09] LABS: Appearance Urine Cloudy (Clear); Bilirubin Urine Negative (Negative); Blood Urine 1+ (Negative); Color Urine Yellow (Yellow); Glucose Urine UA Negative (Negative); Ketones Urine Negative (Negative); Leukocyte Esterase Ur 1+ LEU/UL (Negative); Nitrate Urine Negative (Negative); Protein Urine 1+ mg/dL (Negative); Urobilinogen Urine 0.2 mg/dL (<2.0)
[2022-11-17 22:13] LABS: Add Urine Microscopic? YES
[2022-11-17 22:14] LABS: RBC Urine 21-50 /hpf (0-2)
[2022-11-17 22:15] LABS: Bacteria Urine Trace /hpf; Calcium Oxalate Crystals Urine Present /hpf; Squamous Epithelial Cell Urine Few /hpf (Few)
[2022-11-17 22:16] LABS: Amorphous Sediment Urine Present; Mucus Urine Few /lpf
[2022-11-17] MEDS: SODIUM CHLORIDE 0.9% IV 1,000 ML 999 ML IV CONT (22:22)
[2022-11-17 22:48] LABS: Amphetamine Screen Urine Negative (Negative); Barbiturate Screen Urine Negative (Negative); Benzodiazepines Screen Urine Negative (Negative); Cannabinoid Screen Urine Negative (Negative); Cocaine Screen Urine Negative (Negative); Methadone Screen Urine Negative (Negative); Opiate Screen Urine Negative (Negative); Phencyclidine Screen Urine Negative (Negative)
[2022-11-18] VITALS (18 sets, daily range): BP systolic 114–149; BP diastolic 61–92; PULSE 81–107; RESP 17–30; TEMP 36.7–37.9; O2SAT 92–100; BMI 32.8
[2022-11-18 00:16] LABS: Acetaminophen < 10 ug/mL (10-30); Ethanol < 10 mg/dL (<10); Salicylate < 1.0 mg/dL (2-20)
--- NOTE | 2022-11-18 09:48 | ADMGEN ---
This patient, Shant Zaman, was admitted to [facility] Surg Room 331-01. Patient/family oriented to hospital policies and general routines including ID bracelet, bed and alarms, visiting hours, pain management, procedures, bathroom and other care routines, personal items, smoking policy, room service/diet, and visiting hours. Information on how to activate the Rapid Response Team has been discussed. Patient/Family are encouraged to report perceived risks to care and to ask questions if they do not understand what they are told or what they should do.
--- NOTE | 2022-11-18 10:15 | WPDNEURCNPN ---
Assessment and Plan Assessment and plan (1) Aphasia: Code(s): R47.01 - Aphasia Status: Acute (2) Encephalopathy: Code(s): G93.40 - Encephalopathy, unspecified Status: Acute (3) History of atrial fibrillation: Code(s): Z86.79 - Personal history of other diseases of the circulatory system Status: Acute Plan Mr. Zaman is a 76 year old male with a remote history of atrial fibrillation and prediabetes presenting with a transient episode of word-finding difficulties, confusion. These episodes have occurred several times in the past. Prior to current admission, he had similar symptoms in Aug 2022. Concern for recurrent TIAs. Patient has a history of atrial fibrillation in the setting of sepsis in 2019, but there have been no reports of recurrence. However, EKG from this admission did show sinus tachycardia with frequent supraventricular premature complexes. - MRI brain w/o contrast, CTA brain/carotid, surface echocardiogram - Check LDL, A1c - Start Aspirin 81mg daily - Will need close Cardiology follow-up to investigate recurrence of atrial fibrillation-- possibly event monitor/loop recorder. If there is confirmed recurrence of atrial fibrillation, he will need to be on long term care social worker anticoagulation given the TIAs he has had. Consult date: 11/18/22 Reason for consult: Altered mental status HPI: Shant Zaman is a 76 year old male with a history of RA, prior UTIs with urosepsis (while on MTX), hypertension, glaucoma, gout, prostate cancer, atrial fibrillation, ureterolithiasis, pred-diabetes, and prior TIA presented due to altered mental status. Family brought patient to [place] ED after they felt that he was disoriented and confused. He also reported word finding difficulties. When he presented to the ED he was only oriented to self and place, but thought the year was 2042. His work-up in the ED showed negative CT head. Labs showed WBC 11 and UA with 1+ LE, 4-6 WBC, trace bacteria. His urine tox screen and blood alcohol level were negative. Patient has hydrocodone listed in his medication list. He is also on Plaquenil for his RA. Due to hematuria noted on UA, CT abd/pelvis was obtained which showed 4mm and 2mm stone in distal L ureter with L hydronephrosis and hydroureter. Patient resented in August 2022 with a transient episode of aphasia. He had an MRI brain done at that time which showed no acute abnormalities. He currently feels back to his baseline. He has multiple episodes of word finding issues in the past and has been diagnosed with TIA in the past as well. Per chart review, patient had an episode of atrial fibrillation while he was hospitalized in 2019 for sepsis and acute renal failure. His PCP saw him in follow-up and documented no recurrence of atrial fibrillation at follow-up appointment in 2019. He did have an event monitor at some point as well. Patient is not aware that he had atrial fibrillation and cannot give any additional details. Review of Systems Constitutional: Constitutional: Denies chills, Denies fever(s) and Denies weight loss Eyes: Eyes: Denies diplopia and Denies loss of vision ENT: Denies dizziness, Denies hearing loss and Denies tinnitus Cardiovascular: Cardiovascular: Denies chest pain, Denies syncope and Denies dyspnea Respiratory: Respiratory: Denies cough, Denies dyspnea and Denies wheezing Gastrointestinal: Gastrointestinal: Denies abdominal pain, Denies change in bowel habits and Denies vomiting Genitourinary: Genitourinary: Denies urinary incontinence Musculoskeletal: Musculoskeletal: Denies arthralgias and Denies joint swelling Integumentary/Breasts: Skin/Breast: Denies new lesions and Denies rash Neurologic: Reports as per HPI, Denies dizziness, Denies syncope and Denies loss of vision Psychiatric: Psychiatric: Denies anxiety, Reports confusion and Denies depression Endocrine: Endocrine: Denies cold intolerance and Denies heat intolerance Hematol
--- NOTE | 2022-11-18 11:05 | PC.NURSE ---
Left message with patient's to verify home medications. Pending reply.
--- NOTE | 2022-11-18 12:31 | PM.IMHP ---
H&P: HPI History of Present Illness Date/Time: 11/18/22 12:31 Chief Complaint: Altered mental status Narrative: 76-year-old gentleman with a history of recurrent UTIs and calcium oxalate kidney stones was brought to the hospital because of increasing confusion. He normally is oriented to person place and time. He was oriented to person place only upon presentation. Family says this is highly unusual for him. Note that he had similar issues in the past with UTI's and stones. In 08/2022 he grew enterococcus sensitive to ampicillin, vanc, gent. He denied any chest pain or breathing issues. He denied any abdominal pain. He denied any urinary issues including urgency frequency or bleeding or burning. His appetite has remained good. He denied any focal weakness or numbness. He denied fevers chills or sweats. There has been no change in his ambulatory ability. All in the emergency department overnight his urinalysis was abnormal with predominately red cells a few white cells and trace bacteria. Urine was cloudy. Leukocyte esterase was positive. Calcium oxalate crystals were present. Urine protein was 1+. Specific gravity is 1.020. CT of the abdomen pelvis showed 2 mm and 4 mm stones in the left ureter with hydronephrosis. CT of the brain was unremarkable. Review of Systems Review of Systems: All systems reviewed & are unremarkable except as noted in HPI and below PMFSH Past Medical History Medical History Bacteremia (~10/2019) UTI with bacteremia, CNSS not saprophyticus. Khoury palsy (~2018) Chronic venous insufficiency of lower extremity COVID-19 Essential hypertension Glaucoma Gout Hepatic steatosis Hypogonadism in male Uses testosterone gel. Kidney stones Left ureteral stone Osteoarthritis Overactive bladder Paroxysmal atrial fibrillation (~10/2019) associated with sepsis Pre-diabetes Hemoglobin A1c was 6.3% in April 2019. Prostate cancer Pulmonary embolism 02/[address] scan performed for staging of prostate cancer bilateral lower lobe and middle lobe pulmonary embolism Retinal vein occlusion of left eye Rheumatoid arthritis with rheumatoid factor of multiple sites without organ or systems involvement Transient ischemic attack (~2014) Ureterolithiasis Vitamin D deficiency Surgical History Surgical History History of appendectomy (~1957) History of cystoscopy (~05/2022) cystoscopy, left retrograde pyelography and left ureteral stent placement History of left cataract surgery (~2009) Hx of lithotripsy (~04/2022) Left ESWL Family History Family History Father Diabetes mellitus Acute myocardial infarction Heart disease Hypertension Social History Social History Social History: The patient lives in [place] with his . They have 3 sons and 1 daughter. He smoked up to 3 packs of cigarettes per day and quit 1995. No alcohol or drug abuse. 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 [employer] Code status: Full code Surrogate decision maker: Vandana () Smoking packs per day: 1 Smoking cigarettes per day: 20.0 Years smoked: 5 Smoking pack-years: 5.00 Smoking status: Former smoker Tobacco type: cigarettes Second hand tobacco smoke exposure: No Smoking end date: 07/23/11 Additional smoking assessment comments: pt states he started smoking at age 20 Alcohol intake: never Alcohol use details: occasional glass of wine Substance use: never Substance use type: does not use Lack of Transportation: No Lack of Food: Never True Current Housing: I Have Housing Concerned About Future Housing: No Difficulty Paying Gas/Electric Bills: No Difficulty Paying for Meds: No Currently Unemployed: No Education: Associate Degree [employer]
[2022-11-18 16:06] LABS: Hemoglobin A1C 5.4 % (<5.7)
[2022-11-18 17:09] LABS: LDL Cholesterol Direct 62 mg/dL
[2022-11-18] MEDS: CHOLECALCIFEROL 1,000 UNITS TABLET 5000 UNITS PO (17:11)
[2022-11-18] MEDS: FOLIC ACID 0.4 MG TABLET PO (17:12)
[2022-11-18] MEDS: METOPROLOL TARTRATE 50 MG TAB PO (17:12)
[2022-11-18] MEDS: HYDROXYCHLOROQUINE SULFATE 200 MG TABLET 400 MG PO (17:12)
[2022-11-18] MEDS: DORZOLAMIDE HCL 2% OPHTH DROPS 1 DROP LEFT EYE ×2 (17:13→17:19)
[2022-11-18] MEDS: BRIMONIDINE TARTRATE 0.2% OP SOLN 5 ML BTL 1 DROP EACH EYE (17:13)
[2022-11-18] MEDS: TAMSULOSIN HCL 0.4 MG CAPSULE PO (20:20)
[2022-11-18] MEDS: TIMOLOL MALEATE 0.5% OP SOLN 5 ML BOTTLE 1 DROP EACH EYE (20:20)
[2022-11-18] MEDS: LATANOPROST 0.005% OP SOLN 2.5 ML BTL 1 DROP EACH EYE (20:21)
[2022-11-19] VITALS (13 sets, daily range): BP systolic 116–133; BP diastolic 57–88; PULSE 57–86; RESP 18–22; TEMP 36.6–36.9; O2SAT 93–100
--- NOTE | 2022-11-19 06:00 | ECG_ITS ---
Measurements Intervals [place] Rate: 83 P: 27 MT: 191 QRS: 46 QRSD: 178 T: -7 QT: 434 QTc: 512 Interpretive Statements SINUS RHYTHM WITH OCCASIONAL VENTRICULAR PREMATURE COMPLEXES WITH FREQUENT SUPRAVENTRICULAR PREMATURE COMPLEXES RIGHT BUNDLE BRANCH BLOCK [120+ ms QRS DURATION, UPRIGHT V1, 40+ ms S IN I/aVL/V4/V5/V6] COMPARED TO ECG 11/17/2022 20:43:00 SINUS RHYTHM NOW PRESENT Electronically Signed On 11-19-2022 13:44:32 CDT by Kofi Wagner M.D.
[2022-11-19 06:25] LABS: Basophils Percent Auto 0.5 % (0.2-1.2); Eosinophils Absolute Auto 0.3 K/mm3 (0-0.3); Eosinophils Percent Auto 3.3 % (0-4.4); Hemoglobin 12.4 g/dL (14.0-18.0); Immature Granulocyte Absolute 0.03 K/mm3 (0.00-0.031); Immature Granulocyte Percent A 0.4 % (0-0.5); Lymphocytes Absolute Auto 0.47 K/mm3 (0.9-3.2); Lymphocytes Percent Auto 5.9 % (18.3-44.2); Mean Corpuscular HGB Conc 33.5 g/dl (32-36); Mean Corpuscular Hemoglobin 35.4 pg (26-34); Mean Corpuscular Volume 105.7 fl (80-100); Mean Platelet Volume 8.8 fl (7.4-10.4); Monocytes Absolute Auto 0.8 K/mm3 (0.1-0.6); Monocytes Percent Auto 9.6 % (2.6-8.5); Neutrophils Absolute Auto 6.4 K/mm3 (1.3-6.7); Neutrophils Percent Auto 80.3 % (45.5-73.1); Platelet Count Result 181 k/mm3 (150-375); Red Cell Distribution Width 13.2 % (11.5-14.5)
[2022-11-19 06:34] LABS: Anion Gap 9 mmol/L (8-16); Blood Urea Nitrogen 19 mg/dL (9-20); Calcium 8.5 mg/dL (8.4-10.2); Carbon Dioxide 22 mmol/L (22-30); Chloride 104 mmol/L (98-107); Estimated CRCL calculation 60 ml/min; Estimated Glomerular Filt Rate > 60; Glucose 100 mg/dL (65-110); Potassium 3.6 mmol/L (3.4-5.0); Sodium 135 mmol/L (137-145)
[2022-11-19] MEDS: BRIMONIDINE TARTRATE 0.2% OP SOLN 5 ML BTL 1 DROP EACH EYE ×2 (08:40→18:44)
[2022-11-19] MEDS: DORZOLAMIDE HCL 2% OPHTH DROPS 1 DROP LEFT EYE ×3 (08:40→18:44)
[2022-11-19] MEDS: TIMOLOL MALEATE 0.5% OP SOLN 5 ML BOTTLE 1 DROP EACH EYE ×2 (08:40→22:04)
[2022-11-19] MEDS: METOPROLOL TARTRATE 50 MG TAB PO ×2 (08:41→18:44)
[2022-11-19] MEDS: ASPIRIN 81 MG CHEWABLE TABLET PO (08:41)
[2022-11-19] MEDS: CHOLECALCIFEROL 1,000 UNITS TABLET 5000 UNITS PO (08:41)
[2022-11-19] MEDS: HYDROXYCHLOROQUINE SULFATE 200 MG TABLET 400 MG PO (08:41)
[2022-11-19] MEDS: lisinopriL 10 MG TABLET PO (08:41)
[2022-11-19] MEDS: FOLIC ACID 0.4 MG TABLET PO (08:41)
--- NOTE | 2022-11-19 09:43 | WPDURCON ---
Assessment and Plan Assessment and plan (1) Altered mental status: Code(s): R41.82 - Altered mental status, unspecified Status: Acute (2) Complicated UTI (urinary tract infection): Code(s): N39.0 - Urinary tract infection, site not specified Status: Acute (3) Left ureteral calculus: Code(s): N20.1 - Calculus of ureter Status: Acute Plan 76 year old male presented with altered mental status in setting of UTI and distal left ureteral stones (history of similar presentation): I had a discussion with the patient (mental status has improved) and his daughter Justina over the phone. Has obstructive uropathy in the setting of UTI. We discussed proceeding with cystoscopy and left stent placement today to alleviate the obstruction with plans for definitive stone surgery with Dr Walker once infection resolves. Pt had breakfast and surgery will be planned for later today. They understand the risks including but not limited to bleeding, infection, damage the urinary tract, stent irritation and risks of anesthesia. He elects to proceed. Continue IV abx while awaiting culture results. I have spoken with the hospitalist and he has cleared the patient to proceed with anesthesia later today. Urology Consult Note HPI Date Seen: 11/19/22 Requesting Physician: Annie Nieto DO Primary Care Provider: Campbell Cho MD Consult Narrative Reason for consult: left ureteral stones Narrative: Shant Zaman is a 76 year old male presented to ER yesterday due to altered mental status. Per notes, has history of stones and UTIs. His last stone procedure was in fall [address] Walker. Per notes, history of mental status changes with prior infections/stones. CT in ER showed 4 mm and 2 mm left distal ureteral stones with moderate hydronephrosis. UA with LE and blood. Urine culture is pending and has been started on rocephin. He currently denies any flank pain or hematuria. Had low grade fever (37.9) last night. Mental status has improved this AM. Hospitalist has stopped his oxybutynin due to altered mental status Review of Systems Review of Systems: All systems reviewed & are unremarkable except as noted in HPI and below PMFSH Past Medical History Medical History Bacteremia (~10/2019) UTI with bacteremia, CNSS not saprophyticus. Khoury palsy (~2018) Chronic venous insufficiency of lower extremity COVID-19 Essential hypertension Glaucoma Gout Hepatic steatosis Hypogonadism in male Uses testosterone gel. Kidney stones Left ureteral stone Osteoarthritis Overactive bladder Paroxysmal atrial fibrillation (~10/2019) associated with sepsis Pre-diabetes Hemoglobin A1c was 6.3% in April 2019. Prostate cancer Pulmonary embolism 02/[address] scan performed for staging of prostate cancer bilateral lower lobe and middle lobe pulmonary embolism Retinal vein occlusion of left eye Rheumatoid arthritis with rheumatoid factor of multiple sites without organ or systems involvement Transient ischemic attack (~2014) Ureterolithiasis Vitamin D deficiency Surgical History Surgical History History of appendectomy (~1957) History of cystoscopy (~05/2022) cystoscopy, left retrograde pyelography and left ureteral stent placement History of left cataract surgery (~2009) Hx of lithotripsy (~04/2022) Left ESWL Family History Family History Father Diabetes mellitus Acute myocardial infarction Heart disease Hypertension Social History Social History Social History: The patient lives in [place] with his . They have 3 sons and 1 daughter. He smoked up to 3 packs of cigarettes per day and quit 1995. No alcohol or drug abuse. 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
--- NOTE | 2022-11-19 09:44 | PM.IMPN ---
Progress Note: A&P Assessment and Plan (1) Encephalopathy: Code(s): G93.40 - Encephalopathy, unspecified Status: Acute Assessment and Plan: Given no definite sign of infection or other metabolic cause evaluation for stroke should be pursued 11/18 neurology has ordered MRI of brain and CTA of brain and carotids and this was discussed at bedside with his son and spouse Hold oxybutynin as anticholinergics may worsen his mental status 11/19 d/w with Dr. Velazquez his negative neuro eval and stability for OR (2) Left ureteral calculus: Code(s): N20.1 - Calculus of ureter Status: Acute Assessment and Plan: Recurrent and followed by Dr. Walker who is consulted for f/u eval and tx Even with the hydronephrosis this does not seem to be causing any acute issues Continue ceftriaxone pending results of urine culture 11/19 to OR for left ureteral stent today (3) COPD (chronic obstructive pulmonary disease): Code(s): J44.9 - Chronic obstructive pulmonary disease, unspecified Status: Acute Assessment and Plan: Currently inactive (4) Pre-diabetes: Code(s): R73.03 - Prediabetes Status: Acute Assessment and Plan: A1c only 5.4 now (5) Prostate cancer: Code(s): C61 - Malignant neoplasm of prostate Status: Acute Assessment and Plan: In remission per history of PSA under 1 (6) History of atrial fibrillation: Code(s): Z86.79 - Personal history of other diseases of the circulatory system Status: Acute Assessment and Plan: Increases risk for stroke Plan Given the left ureteral stones and microscopic hematuria and that he may need a urologic procedure will utilize SCDs for DVT prophylaxis Subjective Date/time seen: 11/19/22 09:44 Interval history: Feeling better overall. Denied pain. No dysuria or hematuria. No GI issues. Chest pain shortness a breath. Tolerated breakfast. Unfortunately Urology wanted to take him for stent today and yes to wait till this afternoon. Review of Systems Review of Systems: All systems reviewed & are unremarkable except as noted in HPI and below Exam Narrative: HEENT: EOMI, PERRL, sclerae nonicteric, pharyngeal mucosa pink and intact NECK: No JVD, adenopathy, or thyromegaly CHEST: Clear to auscultation. Normal effort. HEART: NL S1/S2, regular, no murmur ABDOMEN: BS+, soft, nontender, no mass, no bruits EXTREMITIES: No cyanosis, edema, or clubbing NEUROLOGIC: CN intact and symmetric to inspection. Strength and tone intact all 4 extremities MUSCULOSKELETAL: Tone and strength symmetric. PSYCH: Alert. Oriented to person, place, and time (October,) Objective Data Vital Signs Vital Signs: Vital Signs - 24 hr 11/18/22 09:45 11/18/22 10:15 11/18/22 14:00 Temperature 98.6 F 98.1 F Pulse Rate 84 84 Respiratory Rate 18 18 Blood Pressure 130/77 139/92 H Pulse Oximetry 100 99 Oxygen Delivery Room Air 11/18/22 17:12 11/18/22 16:00 11/18/22 20:10 Temperature Pulse Rate 99 84 Respiratory Rate Blood Pressure Pulse Oximetry Oxygen Delivery Room Air 11/18/22 22:00 11/19/22 06:00 11/19/22 08:41 Temperature 100.3 F H 98.4 F Pulse Rate 81 57 L 63 Respiratory Rate 20 20 Blood Pressure 114/61 126/57 L Pulse Oximetry 95 93 Oxygen Delivery Intake/Output Intake/Output: Intake & Output 11/16/22 11/17/22 11/18/22 11/19/22 23:59 23:59 23:59 23:59 Intake Total 1000 1010 300 Output Total 400 100 Balance 1000 610 200 Meds/Results Medications: Active Medications Generic Name Dose Route Start Last Admin Trade Name Freq PRN Reason Stop Dose Admin Aspirin 81 mg 11/19/22 08:00 11/19/22 08:41 Aspirin 81 Mg Chewable Tablet PO 81 mg DAILY@0800 MART Administration Brimonidine Tartrate 1 drop 11/18/22 17:00 11/19/22 08:40 Brimonidine Tartrate 0.2% Op Soln 5 Ml Btl EACH EYE 1 drop BID MART Administration Dorzo
[2022-11-19] MEDS: KCL 20 MEQ/D5/0.45% SOD CHL 1,000 ML 75 ML IV CONT (14:10)
--- NOTE | 2022-11-19 14:43 | WPDHPUPDATE1 ---
History and Physical Update Update Date/Time: 11/19/22 14:43 History and Physical has been reviewed, including an updated exam of the patient. There are NO changes in the patient's condition. Risks, benefits, and alternatives have been discussed and questions answered. Patient agrees to proceed with procedure.
--- NOTE | 2022-11-19 15:05 | WPDANESEPPF ---
Anes - Initial Pre Proc Eval Procedure: Operation Date: 11/19/22 14:30 Proposed Procedures p Cysto, RPG, Stone Ext, Stent Placement(Left) - Natalie Velazquez MD Date/Time: 11/19/22 15:05 Surgeon: Annie Nieto DO Pre Op Diagnosis: Altered Mental Status Patient Data Age: 76 Gender: M Height: 1.78 m Weight: 104 kg Last Vital Signs Temp 36.6 C 11/19/22 13:39 Pulse 62 11/19/22 13:39 Resp 18 11/19/22 13:39 BP 122/82 11/19/22 13:39 Pulse Ox 96 11/19/22 13:39 O2 Del Method Room Air 11/19/22 08:40 Allergies Allergy/AdvReac Type Severity Reaction Status Date / Time No Known Drug Allergies Allergy Mild unknown Verified 11/17/22 21:05 Home Medications Medication Instructions Recorded Confirmed Type oxybutynin chloride 10 mg 10 mg PO DAILY #90 tabs 08/23/22 11/18/22 Rx tablet,extended release 24 hr metoprolol tartrate 50 mg tablet 50 mg PO BID #180 tabs 09/14/22 11/18/22 Rx folic acid 400 mcg tablet 400 mcg PO DAILY 09/15/22 11/18/22 History lisinopril 10 mg tablet 10 mg PO DAILY 09/15/22 11/18/22 History tamsulosin 0.4 mg capsule 0.4 mg PO HS 09/15/22 11/18/22 History brimonidine 0.2 % eye drops 1 drp EACH EYE BID #30 mL 09/22/22 11/18/22 Rx dorzolamide 2 % eye drops (Trusopt) 1 drp LEFT EYE TID #30 mL 09/22/22 11/19/22 Rx latanoprost 0.005 % eye drops 1 drp EACH EYE HS #30 mL 09/22/22 11/18/22 Rx (Xalatan) timolol maleate 0.5 % eye drops 1 drp EACH EYE Q12HR #30 mL 09/22/22 11/18/22 Rx hydroxychloroquine 200 mg tablet 400 mg PO DAILY #180 tabs 10/17/22 11/18/22 Rx cholecalciferol (vitamin D3) 125 250 mcg PO DAILY 11/18/22 11/18/22 History mcg (5,000 unit) tablet (Vitamin D3) folic acid 400 mcg tablet 0.4 mg PO DAILY 11/18/22 11/18/22 History peg 400-propylene glycol 0.4 %-0.3 1 drp EACH EYE DAILY PRN Dry Eye(S) 11/19/22 11/19/22 History % eye drops (Systane Ultra) Laboratory Tests 11/18/22 11/19/22 15:47 05:44 WBC 8.0 K/mm3 (4.5-10.0) RBC 3.50 L M/mm3 (4.6-6.20) Hgb 12.4 L g/dL (14.0-18.0) Hct 37.0 L % (42.0-52.0) MCV 105.7 H fl (80-100) MCH 35.4 H pg (26-34) MCHC 33.5 g/dl (32-36) RDW 13.2 % (11.5-14.5) Plt Count 181 k/mm3 (150-375) MPV 8.8 fl (7.4-10.4) Immature Gran % (Auto) 0.4 % (0-0.5) Neut % (Auto) 80.3 H % (45.5-73.1) Lymph % (Auto) 5.9 L % (18.3-44.2) [place] % (Auto) 9.6 H % (2.6-8.5) Eos % (Auto) 3.3 % (0-4.4) Baso % (Auto) 0.5 % (0.2-1.2) Lymph # (Auto) 0.47 L K/mm3 (0.9-3.2) [place] # (Auto) 0.8 H K/mm3 (0.1-0.6) Eos # (Auto) 0.3 K/mm3 (0-0.3) Baso # (Auto) 0.0 K/mm3 (0.0-0.1) Abs Immat Gran (auto) 0.03 K/mm3 (0.00-0.031) Absolute Neuts (auto) 6.4 K/mm3 (1.3-6.7) Absolute Nucleated RBC 0.0 K/mm3 (0.0-0.012) Nucleated RBC % 0.0 % (0.0-0.2) Sodium 135 L mmol/L (137-145) Potassium 3.6 mmol/L (3.4-5.0) Chloride 104 mmol/L (98-107) Carbon Dioxide 22 mmol/L (22-30) Anion Gap 9 mmol/L (8-16) BUN 19 mg/dL (9-20) Creatinine 1.10 mg/dL (0.7-1.3) Estim Creat Clear Calc 60 ml/min Estimated GFR > 60 (59 - ) Glucose 100 mg/dL (65-110) Hemoglobin A1c 5.4 % (<5.7) Calcium 8.5 mg/dL (8.4-10.2) LDL Cholesterol Direct 62 mg/dL Patient hx anesthesia problems: none Family hx anesthesia problems: none Results Review: All pre-operative results and documents have been reviewed as part of the pre-operative evaluation. [facility] Past Medical History Medical History Bacteremia (~10/2019) UTI with bacteremia, CNSS not saprophyticus. Khoury palsy (~2018) Chronic venous insufficiency of lower extremity COVID-19 Essential hypertension Glaucoma Gout Hepatic steatosis Hypogonadism in male
[2022-11-19] MEDS: LACTATED RINGERS 1,000 ML 30 ML IV CONT (15:25)
[2022-11-19] MEDS: LIDOCAINE HCL 2% GEL UROJET 10 ML PKG MUCOUS MEM (15:52)
--- NOTE | 2022-11-19 15:58 | W.PM.PROC2 ---
Procedure Note - Detailed Date of Procedure 11/19/22 Pre-op Diagnosis left distal ureteral stone and hydronephrosis Post-op Diagnosis Same Procedure Performed cystoscopy, left retrograde pyelogram and placement of left 6fr variable length stent Surgeon Natalie Velazquez MD Anesthesia General and Local Indications 76 year old male presented with altered mental status. UA was positive for infection and CT showed 4 mm and 2mm left distal ureteral stones with obstruction. He elects to proceed with left stent placement with plans for definitive stone surgery with Dr. Walker once acute infection resolves. He understood the risks including but not limited to bleeding, infection, damage to the urinary tract, stent irritation, and risks of anesthesia. He elects to proceed. Findings moderate left hydronephrosis on retrograde pyelogram Description of Procedure The patient was correctly identified and informed consent was obtained. He was brought to the operative suite and a formal timeout was performed. General anesthesia was induced. He had already received IV antibiotics and was not due for redosing. He was placed in dorsal lithotomy position, prepped and draped in a sterile fashion. Cystoscopy is undertaken with a rigid cystoscope. He was noted to have bilobar hypertrophy of the prostate. He had some mild trabeculations with no tumors. The left ureteral orifice was intubated with a Bentson wire which was advanced under fluoroscopy up into the left kidney. Over the wire, I advanced an 8fr coaxial dilator. A gentle retrograde pyelogram was performed to delineate the renal anatomy. He was noted to have moderate left hydronephrosis. A 6fr variable length stent was then placed under a combination of fluoroscopic guidance and direct vision with a curl in the upper pole of the kidney and another curl in the bladder. The bladder was drained of its contents. 2% lidocaine gel was inserted. He was awaken and taken to the recovery room in a stable fashion. Implants 6 fr variable length stent Estimated Blood Loss 5 Drains No Packing No Pathology None sent Complications No immediate complications Condition Stable
[2022-11-19 17:19] LABS: Hemoglobin A1C 5.5 % (<5.7)
[2022-11-19] MEDS: TAMSULOSIN HCL 0.4 MG CAPSULE PO (22:03)
[2022-11-19] MEDS: LATANOPROST 0.005% OP SOLN 2.5 ML BTL 1 DROP EACH EYE (22:05)
[2022-11-20] MEDS: KCL 20 MEQ/D5/0.45% SOD CHL 1,000 ML 75 ML IV CONT (06:31)
[2022-11-20 06:38] LABS: Hematocrit 37.1 % (42.0-52.0); Hemoglobin 12.1 g/dL (14.0-18.0); Mean Corpuscular Hemoglobin 34.8 pg (26-34); Mean Corpuscular Volume 106.6 fl (80-100); Red Blood Count 3.48 M/mm3 (4.6-6.20); White Blood Count 5.8 K/mm3 (4.5-10.0)
[2022-11-20 06:39] LABS: Mean Corpuscular HGB Conc 32.6 g/dl (32-36); Mean Platelet Volume 8.9 fl (7.4-10.4); Platelet Count Result 189 k/mm3 (150-375); Red Cell Distribution Width 13.2 % (11.5-14.5)
--- NOTE | 2022-11-20 06:42 | WPDUROPN2 ---
Progress Note: A&P Assessment and Plan (1) Ureteral stone with hydronephrosis: Code(s): N13.2 - Hydronephrosis with renal and ureteral calculous obstruction Status: Acute Assessment and Plan: Feeling well following left ureteral stent placement. Await urine/blood cultures - discharge on appropriate abx. when available. Will arrange definitive stone extraction in 1-2 weeks. Subjective Subjective Date/Time Seen: 11/20/22 06:42 Interval history: Comfortable following right ureteral stent placement Review of Systems Cardiovascular: Cardiovascular: Denies chest pain, Denies lightheadedness, Denies palpitations and Denies dyspnea Respiratory: Respiratory: Denies dyspnea Gastrointestinal: Gastrointestinal: Denies diarrhea, Denies nausea and Denies vomiting Genitourinary: Genitourinary: Denies hematuria and Denies dysuria Endocrine: Endocrine: Denies palpitations Exam Const: General: no acute distress Resp: Effort & Inspection: normal respiratory effort GI: Inspection: non-distended GI Palp: No abdominal tenderness and No Guarding due to palpation present (GI) Auscultation: normal bowel sounds Objective Data Vital Signs Vital Signs: Vital Signs - 24 hr 11/19/22 08:41 11/19/22 08:40 11/19/22 13:39 Temperature 98 F Pulse Rate 63 62 Respiratory Rate 18 Blood Pressure 122/82 Pulse Oximetry 96 Oxygen Delivery Room Air Oxygen Flow Rate 11/19/22 16:06 11/19/22 16:20 11/19/22 16:25 Temperature 97.9 F 98.2 F Pulse Rate 86 75 75 Respiratory Rate 20 22 H 20 Blood Pressure 118/59 L 116/69 117/75 Pulse Oximetry 100 99 100 Oxygen Delivery Simple Face Mask Simple Face Mask Simple Face Mask Oxygen Flow Rate 8 8 8 11/19/22 16:35 11/19/22 16:45 11/19/22 16:55 Temperature Pulse Rate 74 73 78 Respiratory Rate 20 20 20 Blood Pressure 123/70 129/78 133/74 Pulse Oximetry 97 97 95 Oxygen Delivery Room Air Room Air Room Air Oxygen Flow Rate 11/19/22 17:10 11/19/22 17:30 11/19/22 18:44 Temperature Pulse Rate 76 68 68 Respiratory Rate 20 20 Blood Pressure 130/76 131/88 Pulse Oximetry 94 98 Oxygen Delivery Room Air Oxygen Flow Rate 11/19/22 20:20 Temperature Pulse Rate 68 Respiratory Rate 20 Blood Pressure Pulse Oximetry 98 Oxygen Delivery Room Air Oxygen Flow Rate Intake/Output Intake/Output: Intake & Output 11/17/22 11/18/22 11/19/22 11/20/22 23:59 23:59 23:59 23:59 Intake Total 1000 5367 482 7675 Output Total 400 500 900 Balance 1000 610 310 600 Meds/Results Medications: Active Medications Generic Name Dose Route Start Last Admin Trade Name Freq PRN Reason Stop Dose Admin Artificial Tears 1 drop 11/19/22 14:37 Artificial Tears Ophth Soln 15 Ml Bottle EACH EYE DAILY PRN Dry Eye(S) Aspirin 81 mg 11/19/22 08:00 11/19/22 08:41 Aspirin 81 Mg Chewable Tablet PO 81 mg DAILY@0800 MART Administration Brimonidine Tartrate 1 drop 11/18/22 17:00 11/19/22 18:44 Brimonidine Tartrate 0.2% Op Soln 5 Ml Btl EACH EYE 1 drop BID MART Administration Dorzolamide HCl 1 drop 11/18/22 13:25 11/19/22 18:44 Dorzolamide Hcl 2% Ophth Drops LEFT EYE 1 drop TID MART Administration Fentanyl Citrate 25 mcg 11/19/22 15:57 Fentanyl Citrate Inj (*Crx) 100 Mcg/2 Ml Vial IV PUSH Q2M PRN Pain Folic Acid 0.4 mg 11/18/22 13:25 11/19/22 08:41 Folic Acid 0.4 Mg Tablet PO 0.4 mg DAILY MART Administration Hydroxychloroquine Sulfate 400 mg 11/18/22 13:30 11/19/22 08:41 Hydroxychloroquine Sulfate 200 Mg Tablet PO 400 mg DAILY MART Administration Ceftriaxone Sodium 1 gm in 50 mls @ 100 mls/hr 11/19/22 06:00 11/20/22 06:32 Rocephin 1 Gm/Ns 50 Ml IVPB 100 mls/hr Q24H MART Administration Potassium Chloride/Dextrose/Sod Cl 1,000 mls @ 75 mls/hr 11/19/22 10:00 11/20/22 06:31 Kcl 20 Meq/D5/0.45% Sod Chl IV CONT 75 mls/hr .[id number] MART Administration L
[2022-11-20 06:56] LABS: Anion Gap 4 mmol/L (8-16); Blood Urea Nitrogen 18 mg/dL (9-20); Calcium 8.7 mg/dL (8.4-10.2); Carbon Dioxide 27 mmol/L (22-30); Chloride 106 mmol/L (98-107); Estimated CRCL calculation 56 ml/min; Estimated Glomerular Filt Rate 59; Glucose 109 mg/dL (65-110); Potassium 3.8 mmol/L (3.4-5.0); Sodium 137 mmol/L (137-145)
[2022-11-20] MEDS: DORZOLAMIDE HCL 2% OPHTH DROPS 1 DROP LEFT EYE ×3 (09:25→16:18)
[2022-11-20] MEDS: CHOLECALCIFEROL 1,000 UNITS TABLET 5000 UNITS PO (09:25)
[2022-11-20] MEDS: ARTIFICIAL TEARS OPHTH SOLN 15 ML BOTTLE 1 DROP EACH EYE (09:25)
[2022-11-20 09:26] VITALS: PULSE 108
[2022-11-20] MEDS: METOPROLOL TARTRATE 50 MG TAB PO (09:26)
[2022-11-20] MEDS: ASPIRIN 81 MG CHEWABLE TABLET PO (09:26)
[2022-11-20] MEDS: lisinopriL 10 MG TABLET PO (09:26)
[2022-11-20] MEDS: TIMOLOL MALEATE 0.5% OP SOLN 5 ML BOTTLE 1 DROP EACH EYE ×2 (09:26→20:15)
[2022-11-20] MEDS: FOLIC ACID 0.4 MG TABLET PO (09:27)
[2022-11-20] MEDS: HYDROXYCHLOROQUINE SULFATE 200 MG TABLET 400 MG PO (09:27)
[2022-11-20] MEDS: BRIMONIDINE TARTRATE 0.2% OP SOLN 5 ML BTL 1 DROP EACH EYE ×2 (09:27→16:17)
[2022-11-20 09:51] VITALS: O2SAT 96
--- NOTE | 2022-11-20 10:44 | PCCARD ---
Addendum entered by Justina Macdonald, MILAGRO 11/20/22 10:48: STUDY EXAM DATE NEEDS TO BE CHANGED FROM 11/07 TO 09/09 Original Note: ECHO/DOPPLER WITH BUBBLE STUDY ORDER WAS CANCELLED. PATIENT HAD THIS EXAM ON 11/07. SPOKE TO DR. GUERRA AND HE SAID IT WAS OKAY TO CANCEL. HE SAID HE WAS GOING TO SEE THE PATIENT. I TOLD DR. GEURRA IF HE FELT THE PATIENT NEEDED A FOLLOW-UP LIMITED STUDY TO LET US KNOW AND WE WOULD BE HAPPY TO DO THE EXAM FOR HIM.
--- NOTE | 2022-11-20 11:32 | PM.IMPN ---
Progress Note: A&P Assessment and Plan (1) Encephalopathy: Code(s): G93.40 - Encephalopathy, unspecified Status: Acute Assessment and Plan: resolved 11/18 neurology has ordered MRI of brain and CTA of brain and carotids and these were normal Hold oxybutynin as anticholinergics may worsen his mental status (2) Left ureteral calculus: Code(s): N20.1 - Calculus of ureter Status: Acute Assessment and Plan: Continue ceftriaxone pending results of urine culture s/p left ureteral stent today (3) COPD (chronic obstructive pulmonary disease): Code(s): J44.9 - Chronic obstructive pulmonary disease, unspecified Status: Acute Assessment and Plan: Currently inactive (4) Pre-diabetes: Code(s): R73.03 - Prediabetes Status: Acute Assessment and Plan: A1c only 5.4 now (5) Prostate cancer: Code(s): C61 - Malignant neoplasm of prostate Status: Acute Assessment and Plan: In remission per history of PSA under 1 (6) History of atrial fibrillation: Code(s): Z86.79 - Personal history of other diseases of the circulatory system Status: Acute Assessment and Plan: Increases risk for stroke Subjective Date/time seen: 11/20/22 11:32 Interval history: No issues at present Review of Systems Review of Systems: All systems reviewed & are unremarkable except as noted in HPI and below Exam Narrative: HEENT: EOMI, PERRL, sclerae nonicteric, pharyngeal mucosa pink and intact NECK: No JVD, adenopathy, or thyromegaly CHEST: Clear to auscultation. Normal effort. HEART: NL S1/S2, regular, no murmur ABDOMEN: BS+, soft, nontender, no mass, no bruits EXTREMITIES: No cyanosis, edema, or clubbing NEUROLOGIC: CN intact and symmetric to inspection. Strength and tone intact all 4 extremities MUSCULOSKELETAL: Tone and strength symmetric. PSYCH: Alert. Oriented to person, place, and time Objective Data Vital Signs Vital Signs: Vital Signs - 24 hr 11/19/22 13:39 11/19/22 16:06 11/19/22 16:20 Temperature 98 F 97.9 F Pulse Rate 62 86 75 Respiratory Rate 18 20 22 H Blood Pressure 122/82 118/59 L 116/69 Pulse Oximetry 96 100 99 Oxygen Delivery Simple Face Mask Simple Face Mask Oxygen Flow Rate 8 8 11/19/22 16:25 11/19/22 16:35 11/19/22 16:45 Temperature 98.2 F Pulse Rate 75 74 73 Respiratory Rate 20 20 20 Blood Pressure 117/75 123/70 129/78 Pulse Oximetry 100 97 97 Oxygen Delivery Simple Face Mask Room Air Room Air Oxygen Flow Rate 8 11/19/22 16:55 11/19/22 17:10 11/19/22 17:30 Temperature Pulse Rate 78 76 68 Respiratory Rate 20 20 20 Blood Pressure 133/74 130/76 131/88 Pulse Oximetry 95 94 98 Oxygen Delivery Room Air Room Air Oxygen Flow Rate 11/19/22 18:44 11/19/22 20:20 11/20/22 09:26 Temperature Pulse Rate 68 68 108 H Respiratory Rate 20 Blood Pressure Pulse Oximetry 98 Oxygen Delivery Room Air Oxygen Flow Rate 11/20/22 09:51 Temperature Pulse Rate Respiratory Rate Blood Pressure Pulse Oximetry 96 Oxygen Delivery Room Air Oxygen Flow Rate Intake/Output Intake/Output: Intake & Output 11/17/22 11/18/22 11/19/22 11/20/22 23:59 23:59 23:59 23:59 Intake Total 1000 / 1000 1010 / 1010 810 / 810 2446 / 2446 Output Total 400 / 400 500 / 500 900 / 900 Balance 1000 / 1000 610 / 610 310 / 310 1546 / 1546 Meds/Results Medications: Active Medications Generic Name Dose Route Start Last Admin Trade Name Freq PRN Reason Stop Dose Admin Artificial Tears 1 drop 11/19/22 14:37 11/20/22 09:25 Artificial Tears Ophth Soln 15 Ml Bottle EACH EYE 1 drop DAILY PRN Administration Dry Eye(S) Aspirin 81 mg 11/19/22 08:00 11/20/22 09:26 Aspirin 81 Mg Chewable Tablet PO 81 mg DAILY@0800 MART Administration Brimonidine Tartrate 1 drop 11/18/22 17:00 11/20/22 09:27 Brimonidine Tartrate 0.2% Op Soln 5 Ml Btl EACH EYE 1 drop
[2022-11-20 11:45] VITALS: BP 103/55; PULSE 56; RESP 18; TEMP 36.9; O2SAT 95
--- NOTE | 2022-11-20 12:27 | WPDNEURCNPN ---
Consult date: 11/20/22 HPI: Shant Zaman is a 76 year old male seen initially by Dr. Tejada, admitted to the hospital with transient episodes of word-finding difficulties and confusion in addition to the remote history of atrial fibrillation and prediabetes but having the several episodes of word-finding difficulties with previous episode in August of 2022 history of atrial fibrillation in the setting of sepsis in 2019, evaluation up until now includes the fairly normal CBC but MCV is definitely 106.6, serology negative except positive for covid in June 13, MRI of the brain consistent with chronic small vessel ischemic disease, CTA documenting mild diffuse volume loss and moderate scattered white matter hypoattenuation consistent with chronic small vessel ischemic disease otherwise negative CTA. On today's exam is anxious to go home but does except that he has intermittent difficulties in finding the right words. His evaluation up until now in reference of neurological problems is consistent with early mild dementia of nonspecific type with MCV prolonged for which hematology consultation is warranted also B12 and folate level PMFSH Past Medical History Medical History Bacteremia (~10/2019) UTI with bacteremia, CNSS not saprophyticus. Khoury palsy (~2018) Chronic venous insufficiency of lower extremity COVID-19 Essential hypertension Glaucoma Gout Hepatic steatosis Hypogonadism in male Uses testosterone gel. Kidney stones Left ureteral stone Osteoarthritis Overactive bladder Paroxysmal atrial fibrillation (~10/2019) associated with sepsis Pre-diabetes Hemoglobin A1c was 6.3% in April 2019. Prostate cancer Pulmonary embolism 02/[address] scan performed for staging of prostate cancer bilateral lower lobe and middle lobe pulmonary embolism Retinal vein occlusion of left eye Rheumatoid arthritis with rheumatoid factor of multiple sites without organ or systems involvement Transient ischemic attack (~2014) Ureterolithiasis Vitamin D deficiency Surgical History Surgical History History of appendectomy (~1957) History of cystoscopy (~05/2022) cystoscopy, left retrograde pyelography and left ureteral stent placement History of left cataract surgery (~2009) Hx of lithotripsy (~04/2022) Left ESWL Family History Family History Father Diabetes mellitus Acute myocardial infarction Heart disease Hypertension Social History Social History Social History: The patient lives in [place] with his . They have 3 sons and 1 daughter. He smoked up to 3 packs of cigarettes per day and quit 1995. No alcohol or drug abuse. 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 [employer] Code status: Full code Surrogate decision maker: Dariusz () Smoking packs per day: 1 Smoking cigarettes per day: 20.0 Years smoked: 5 Smoking pack-years: 5.00 Smoking status: Former smoker Tobacco type: cigarettes Second hand tobacco smoke exposure: No Smoking end date: 07/23/11 Additional smoking assessment comments: pt states he started smoking at age 20 Alcohol intake: never Alcohol use details: occasional glass of wine Substance use: never Substance use type: does not use Lack of Transportation: No Lack of Food: Never True Current Housing: I Have Housing Concerned About Future Housing: No Difficulty Paying Gas/Electric Bills: No Difficulty Paying for Meds: No Currently Unemployed: No Education: Associate Degree Difficulty w/ Childcare or Family Care: No Living arrangements: with family Additional living arrangements comments: - DARIUSZ Gender identity (if verbalized by the patient): Male Spiritual care concerns: No Agree to blood products: Yes Med
[2022-11-20 14:00] VITALS: BP 111/66; PULSE 63; RESP 20; TEMP 36.2; O2SAT 94
[2022-11-20] MEDS: LATANOPROST 0.005% OP SOLN 2.5 ML BTL 1 DROP EACH EYE (20:15)
[2022-11-20] MEDS: TAMSULOSIN HCL 0.4 MG CAPSULE PO (20:15)
[2022-11-20 21:50] VITALS: BP 122/86; PULSE 79; RESP 16; TEMP 36.2; O2SAT 100
[2022-11-21 05:40] VITALS: BP 120/66; PULSE 62; RESP 14; TEMP 36; O2SAT 95
[2022-11-21 09:15] VITALS: PULSE 76
[2022-11-21] MEDS: CHOLECALCIFEROL 1,000 UNITS TABLET 5000 UNITS PO (09:15)
[2022-11-21] MEDS: BRIMONIDINE TARTRATE 0.2% OP SOLN 5 ML BTL 1 DROP EACH EYE (09:15)
[2022-11-21] MEDS: METOPROLOL TARTRATE 50 MG TAB PO (09:15)
[2022-11-21] MEDS: DORZOLAMIDE HCL 2% OPHTH DROPS 1 DROP LEFT EYE ×2 (09:15→12:47)
[2022-11-21] MEDS: TIMOLOL MALEATE 0.5% OP SOLN 5 ML BOTTLE 1 DROP EACH EYE (09:15)
[2022-11-21] MEDS: lisinopriL 10 MG TABLET PO (09:17)
[2022-11-21] MEDS: HYDROXYCHLOROQUINE SULFATE 200 MG TABLET 400 MG PO (09:17)
[2022-11-21] MEDS: ASPIRIN 81 MG CHEWABLE TABLET PO (09:18)
[2022-11-21] MEDS: FOLIC ACID 0.4 MG TABLET PO (09:18)
--- NOTE | 2022-11-21 10:57 | PM.IMPN ---
Progress Note: A&P Assessment and Plan (1) Encephalopathy: Code(s): G93.40 - Encephalopathy, unspecified Status: Acute Assessment and Plan: resolved MRI of brain and CTA of brain and carotids were normal Hold oxybutynin as anticholinergics may worsen his mental status (2) Left ureteral calculus: Code(s): N20.1 - Calculus of ureter Status: Acute Assessment and Plan: Continue ceftriaxone pending results of urine culture. Preliminary culture report shows Enterobacter cloacae complex. Sensitivities pending s/p left ureteral stent (3) COPD (chronic obstructive pulmonary disease): Code(s): J44.9 - Chronic obstructive pulmonary disease, unspecified Status: Acute Assessment and Plan: Currently inactive (4) Pre-diabetes: Code(s): R73.03 - Prediabetes Status: Acute Assessment and Plan: A1c only 5.4 now (5) Prostate cancer: Code(s): C61 - Malignant neoplasm of prostate Status: Acute Assessment and Plan: In remission per history of PSA under 1 (6) History of atrial fibrillation: Code(s): Z86.79 - Personal history of other diseases of the circulatory system Status: Acute Assessment and Plan: Increases risk for stroke Subjective Date/time seen: 11/21/22 10:57 Interval history: Stable. No neurological deficit Review of Systems Review of Systems: All systems reviewed & are unremarkable except as noted in HPI and below Exam Narrative: HEENT: EOMI, PERRL, sclerae nonicteric, pharyngeal mucosa pink and intact NECK: No JVD, adenopathy, or thyromegaly CHEST: Clear to auscultation. Normal effort. HEART: NL S1/S2, regular, no murmur ABDOMEN: BS+, soft, nontender, no mass, no bruits EXTREMITIES: No cyanosis, edema, or clubbing NEUROLOGIC: CN intact and symmetric to inspection. Strength and tone intact all 4 extremities MUSCULOSKELETAL: Tone and strength symmetric. PSYCH: Alert. Oriented to person, place, and time Objective Data Vital Signs Vital Signs: Vital Signs - 24 hr 11/20/22 11:45 11/20/22 11:04 11/20/22 14:08 Temperature 98.4 F Pulse Rate 56 L Respiratory Rate 18 Blood Pressure 103/55 L Pulse Oximetry 95 Oxygen Delivery Room Air Room Air 11/20/22 14:00 11/20/22 20:00 11/20/22 21:50 Temperature 97.2 F L 97.2 F L Pulse Rate 63 79 Respiratory Rate 20 16 Blood Pressure 111/66 122/86 Pulse Oximetry 94 100 Oxygen Delivery Room Air 11/21/22 05:40 11/21/22 09:15 Temperature 96.8 F L Pulse Rate 62 76 Respiratory Rate 14 Blood Pressure 120/66 Pulse Oximetry 95 Oxygen Delivery Intake/Output Intake/Output: Intake & Output 11/18/22 11/19/22 11/20/22 11/21/22 23:59 23:59 23:59 23:59 Intake Total 1010 / 1010 810 / 810 2806 / 2806 240 / 240 Output Total 400 / 400 500 / 500 900 / 900 275 / 275 Balance 610 / 610 310 / 310 1906 / 1906 -35 / -35 Meds/Results Medications: Active Medications Generic Name Dose Route Start Last Admin Trade Name Freq PRN Reason Stop Dose Admin Artificial Tears 1 drop 11/19/22 14:37 11/20/22 09:25 Artificial Tears Ophth Soln 15 Ml Bottle EACH EYE 1 drop DAILY PRN Administration Dry Eye(S) Aspirin 81 mg 11/19/22 08:00 11/21/22 09:18 Aspirin 81 Mg Chewable Tablet PO 81 mg DAILY@0800 MART Administration Brimonidine Tartrate 1 drop 11/18/22 17:00 11/21/22 09:15 Brimonidine Tartrate 0.2% Op Soln 5 Ml Btl EACH EYE 1 drop BID MART Administration Dorzolamide HCl 1 drop 11/18/22 13:25 11/21/22 09:15 Dorzolamide Hcl 2% Ophth Drops LEFT EYE 1 drop TID MART Administration Folic Acid 0.4 mg 11/18/22 13:25 11/21/22 09:18 Folic Acid 0.4 Mg Tablet PO 0.4 mg DAILY MART Administration Hydroxychloroquine Sulfate 400 mg 11/18/22 13:30 11/21/22 09:17 Hydroxychloroquine Sulfate 200 Mg Tablet PO 400 mg DAILY MART Administration Ceftriaxone Sodium 1 gm in 50 mls @
[2022-11-21 14:00] VITALS: BP 129/74; PULSE 109; RESP 20; TEMP 36.4; O2SAT 98
--- NOTE | 2022-11-21 14:16 | PM.DS ---
DS: Admitting Diagnosis Discharge Date 11/21/22 Admitting Diagnosis Ureteral stone AMS DS: Discharge Diagnosis Discharge Diagnosis (1) Ureteral stone with hydronephrosis: Code(s): N13.2 - Hydronephrosis with renal and ureteral calculous obstruction Status: Acute (2) Altered mental status: Code(s): R41.82 - Altered mental status, unspecified Status: Acute (3) History of atrial fibrillation: Code(s): Z86.79 - Personal history of other diseases of the circulatory system Status: Acute DS: Summary Hospital Course Hospital Course: 76-year-old gentleman with a history of recurrent UTIs and calcium oxalate kidney stones was brought to the hospital because of increasing confusion.? He normally is oriented to person place and time.? He was oriented to person place only upon presentation.? Family says this is highly unusual for him. Note that he had similar issues in the past with UTI's and stones. In 08/2022 he grew enterococcus sensitive to ampicillin, vanc, gent. In the emergency department his urinalysis was abnormal with predominately red cells a few white cells and trace bacteria.? Urine was cloudy.? Leukocyte esterase was positive.? Calcium oxalate crystals were present.? Urine protein was 1+.? CT of the abdomen pelvis showed 2 mm and 4 mm stones in the left ureter with hydronephrosis. CT of the brain was unremarkable. Urology was consulted. patient underwent cystoscopy with stent placement. he was started on iv rocephin. urine cx grew Enterobacter cloacae complex sensitive to Levaquin. so he has been switched to levaquin PO. for his confusion, neurology was consulted. MRI of the brain consistent with chronic small vessel ischemic disease, CTA documenting mild diffuse volume loss and moderate scattered white matter hypoattenuation consistent with chronic small vessel ischemic disease otherwise negative CTA.?His evaluation up until now in reference of neurological problems is consistent with early mild dementia of nonspecific type. patient is otherwise at baseline and is being discharged home. Time Spent with Patient Time attestation: Total time spent providing and/or coordinating discharge services: Exam Narrative: HEENT: EOMI, PERRL, sclerae nonicteric, pharyngeal mucosa pink and intact NECK: No JVD, adenopathy, or thyromegaly CHEST: Clear to auscultation. Normal effort. HEART: NL S1/S2, regular, no murmur ABDOMEN: BS+, soft, nontender, no mass, no bruits EXTREMITIES: No cyanosis, edema, or clubbing NEUROLOGIC: CN intact and symmetric to inspection. Strength and tone intact all 4 extremities MUSCULOSKELETAL: Tone and strength symmetric. PSYCH: Alert. Oriented to person, place, and time Discharge Plan Discharge Consulting providers: Cathy Tejada Discharging Clinician: Reza Caraballo Anticipated Discharge Date/Time: 11/21/22 14:14 Patient Disposition: Home, Self-Care Activity: no preference Diet: heart healthy Patient Instructions: Antibiotic Form, Altered Mental Status (GEN), Cystoscopy (DC) Stand Alone Forms: General Discharge Information Follow-up/Referrals: Bubba Cho MD [Primary Care Provider] - Discharge Medications: New levofloxacin 500 mg tablet 500 mg PO DAILY Qty: 5 0RF Continued hydroxychloroquine 200 mg tablet 400 mg PO DAILY Qty: 180 1RF cholecalciferol (vitamin D3) [Vitamin D3] 125 mcg (5,000 unit) Tablet 250 mcg PO DAILY Systane Ultra 0.4-0.3 % Drops 1 drp EACH EYE DAILY PRN (Reason: Dry Eye(S)) oxybutynin chloride 10 mg tablet extended release 24hr 10 mg PO DAILY Qty: 90 1RF metoprolol tartrate 50 mg tablet 50 mg PO BID Qty: 180 1RF folic acid 400 mcg Tablet 400 mcg PO DAILY tamsulosin 0.4 mg Capsule 0.4 mg PO HS lisinopril 10 mg tablet 10 mg PO DAILY brimonidine 0.2 % Drops 1 drp EACH EYE BID Qty: 30 0RF dorzolamide [Trusopt] 2 % Drops 1 drp LEFT EYE TID Qty: 30 0
== END 2022-11-21 16:00 | disposition home or self-care (01) | DRG 660 ==
LOC: ANHED 21:12 → ANH3MEDSUR 11-18 07:39
PROVIDERS: Internal Medicine; Preventive Medicine Aerospace Medicine; Student in an Organized Health Care Education/Training Program; Urology; Admitting Provider Internal Medicine; Emergency Provider Emergency Medicine; PCP Family Medicine; Visit Provider Hospitalist
PROC: 0T778DZ Dilation of Left Ureter with Intraluminal Device, Via Natural or Artificial Opening Endoscopic (ICD-10-PCS; CPT 52352; principal; 2022-11-19 14:30)
DX: N13.6 Pyonephrosis (principal); R47.01 Aphasia; B95.2 Enterococcus as the cause of diseases classified elsewhere; R31.29 Other microscopic hematuria; F03.A0 Unspecified dementia, mild, without behavioral disturbance, psychotic disturbance, mood disturbance, and anxiety; J44.9 Chronic obstructive pulmonary disease, unspecified; N32.81 Overactive bladder; R73.03 Prediabetes; C61 Malignant neoplasm of prostate; H40.9 Unspecified glaucoma; M19.90 Unspecified osteoarthritis, unspecified site; E55.9 Vitamin D deficiency, unspecified; M05.79 Rheumatoid arthritis with rheumatoid factor of multiple sites without organ or systems involvement; Z86.16 Personal history of COVID-19; Z86.711 Personal history of pulmonary embolism; Z86.73 Personal history of transient ischemic attack (TIA), and cerebral infarction without residual deficits; Z90.49 Acquired absence of other specified parts of digestive tract; Z87.891 Personal history of nicotine dependence; Z86.79 Personal history of other diseases of the circulatory system
CPT/HCPCS: 36415; 70450; 70496; 70498; 70551; 74018; 74176; 74420; 80048; 80053; 80307; 81001; 83036; 83721; 85025; 85027; 85055; 85610; 85730; 87077; 87086; 87186; 93005; 96361; 96365; 96367; 97161; 97165; 99285; A9270; C1769; C2617; G0378; J0330; J0696; J2405; J2704; J3480; J7030; J7120; Q9967

== ENCOUNTER 2022-11-27 13:11 | Outpatient (CLI) | payer MEDICARE, SELFPAY ==
--- NOTE | ~2022-11-27 | XR_ITS ---
XR abdomen/kub 1V 11/27/2022 13:35 Indication: Left ureteral stone Procedure: KUB Comparison: Comparison to multiple prior studies sequentially, with oldest reviewed study dated 04/23. Findings: Bowel gas pattern is nonobstructive. Moderate colonic fecal loading. There is a left internal carver al ureteral stent. No renal stones are seen. There is dextroscoliosis of the lumbar spine. Lung bases are unremarkable. Moderate-severe lumbar spondylosis. Severe lumbar spondylosis. Dextroscoliosis. Impression: 1: No acute abdominal abnormality. Reviewed, dictated and finalized at location B. Impression: 1: No acute abdominal abnormality.
== END 2022-11-27 13:12 | disposition home or self-care (01) ==
PROVIDERS: PCP Family Medicine; Visit Provider Urology
DX: N20.1 Calculus of ureter (principal)
CPT/HCPCS: 74018

== ENCOUNTER 2022-12-04 10:32 | Outpatient (CLI) | payer MEDICARE, SELFPAY ==
--- NOTE | ~2022-12-04 | XR_ITS ---
XR abdomen/kub 1V 12/04/2022 11:00 Indication: Left ureteral stone Procedure: KUB Comparison: 11/27/2022 Findings: Bowel gas pattern is nonobstructive. Moderate colonic fecal loading. There are stones in th e lower pole of the left kidney. There is a left internal ureteral stent. Moderate lumbar spondylosis with dextroscoliosis. Impression: 1: Left nephrolithiasis with left internal ureteral stent in expected position. Reviewed, dictated and finalized at location B. Impression: 1: Left nephrolithiasis with left internal ureteral stent in expected position.
== END 2022-12-04 10:33 | disposition home or self-care (01) ==
PROVIDERS: PCP Family Medicine; Visit Provider Urology
DX: N20.1 Calculus of ureter (principal)
CPT/HCPCS: 74018

== ENCOUNTER 2023-02-07 14:53 | Outpatient (CLI) | payer MEDICARE, SELFPAY ==
--- NOTE | ~2023-02-07 | CT_ITS ---
EXAMINATION: CT abdomen pelvis wo con DATE: 02/07/2023 15:10 INDICATION: Left kidney stone TECHNIQUE: Computed tomography (CT) of the abdomen and pelvis was performed without intravenous contr ast. Automated exposure control and iterative reconstruction technique were employed. Exam dose: 576 .03 mGy-cm total exam DLP. COMPARISON: 12/04/2022 KUB 11/18/2022 CT abdomen pelvis FINDINGS: Minimal atelectasis or scarring at the lung bases. No consolidation is noted. Normal heart size. Coronary artery calcifications. No pericardial or pleural effusion. Mild bilateral gynecomastia. The gallbladder is contracted. No hepatic, splenic, pancreatic, and adrenal or renal space-occupying mass lesion is evident on this limited noncontrast examination with the exception of probable approxi mately 13 mm lower pole right renal cyst. There is prominent left hydronephrosis and pelviectasis and ureterectasis due to an approximately 4 x 6.5 mm distal left ureteral calculus. Immediately proximal smaller distal left ureteral calculus is present as well. Approximately 3 mm nonobstructing lower pole left renal calculus. There is calcification and tortuosity of the abdominal aorta and calcifications at the origins of the celiac and superior mesenteric and renal arteries. No abdominal aortic aneurysm. No intraperitoneal or retroperitoneal or pelvic mass lesion or adenopathy or ascites. Prostate enlargement and calcifications. Moderate diffuse urinary bladder wall thickening. Diverticulosis of the colon; no CT evidence of diverticulitis. No bowel obstruction or intraperitonea l free air. Right fat-containing inguinal hernia. Multilevel degenerative disc disease of the lumbar spine with associated mild retrolisthesis at L2-3 and L3-4. No suspicious osteolytic or osteoblastic lesions are noted. IMPRESSION: Prominent left hydroureteronephrosis secondary to distal left ureteral lithiasis. There are 2 distal left ureteral calculi Approximately 3 mm lower pole nonobstructing left renal calculus Prostate enlargement and calcifications and moderate diffuse bladder wall thickening, likely secondar y to prostatomegaly. Infection is not excluded Small fat-containing right inguinal hernia Diverticulosis of the colon Probable 13 mm lower pole right renal cyst Reviewed, dictated and finalized at Location [facility]. Reviewed, dictated and finalized at location B. IMPRESSION: Prominent left hydroureteronephrosis secondary to distal left uret eral lithiasis. There are 2 distal left ureteral calculi Approximately 3 mm lower pole nonobstructing left renal calculus Prostate enlargement and calcifications and moderate diffuse bladder wall thick ening, likely secondary to prostatomegaly. Infection is not excluded Small fat-containing right inguinal hernia Diverticulosis of the colon Probable 13 mm lower pole right renal cyst
== END 2023-02-07 14:54 | disposition home or self-care (01) ==
LOC: ANHIMG 14:54
PROVIDERS: PCP Family Medicine; Visit Provider Urology
DX: N20.0 Calculus of kidney (principal); K40.90 Unilateral inguinal hernia, without obstruction or gangrene, not specified as recurrent; K57.30 Diverticulosis of large intestine without perforation or abscess without bleeding; N40.0 Benign prostatic hyperplasia without lower urinary tract symptoms
CPT/HCPCS: 74176

== ENCOUNTER 2023-02-20 14:13 | Outpatient (CLI) | payer MEDICARE, SELFPAY ==
[2023-02-20 14:27] LABS: Basophils Absolute Auto 0.1 K/mm3 (0.0-0.1); Basophils Percent Auto 1.1 % (0.2-1.2); Eosinophils Absolute Auto 0.5 K/mm3 (0-0.3); Eosinophils Percent Auto 6.9 % (0-4.4); Hematocrit 38.4 % (42.0-52.0); Hemoglobin 13.1 g/dL (14.0-18.0); Immature Granulocyte Absolute 0.02 K/mm3 (0.00-0.031); Immature Granulocyte Percent A 0.3 % (0-0.5); Lymphocytes Absolute Auto 0.76 K/mm3 (0.9-3.2); Lymphocytes Percent Auto 10.9 % (18.3-44.2); Mean Corpuscular HGB Conc 34.1 g/dl (32-36); Mean Corpuscular Volume 102.7 fl (80-100); Mean Platelet Volume 8.6 fl (7.4-10.4); Monocytes Absolute Auto 0.8 K/mm3 (0.1-0.6); Monocytes Percent Auto 11.5 % (2.6-8.5); Neutrophils Absolute Auto 4.8 K/mm3 (1.3-6.7); Neutrophils Percent Auto 69.3 % (45.5-73.1); Platelet Count Result 176 k/mm3 (150-375); Red Blood Count 3.74 M/mm3 (4.6-6.20)
[2023-02-20 18:49] LABS: Anion Gap 9 mmol/L (8-16); Blood Urea Nitrogen 25 mg/dL (9-20); Calcium 9.1 mg/dL (8.4-10.2); Carbon Dioxide 22 mmol/L (22-30); Chloride 106 mmol/L (98-107); Estimated Glomerular Filt Rate 53; Glucose 106 mg/dL (65-110); Potassium 4.6 mmol/L (3.4-5.0); Sodium 137 mmol/L (137-145)
[2023-02-20 19:57] LABS: Folic Acid > 20.0 ng/mL (2.76->20)
[2023-02-22 15:29] LABS: Homocysteine 19.7 umol/L (<11.4)
== END 2023-02-20 14:14 | disposition home or self-care (01) ==
LOC: ANHLAB 14:15
PROVIDERS: PCP Family Medicine; Visit Provider Internal Medicine Hematology & Oncology
DX: I26.99 Other pulmonary embolism without acute cor pulmonale (principal)
CPT/HCPCS: 36415; 80048; 82607; 82746; 83090; 85025

== ENCOUNTER 2023-02-22 02:02 | Day surgery (SDC) | payer MEDICARE, SELFPAY ==
--- NOTE | 2023-02-16 11:08 | PC.NURSE ---
Report to the Outpatient Waiting Room, entrance under the green pavilion located off [facility], at time __0945 on 02/22/23 . Planned Procedure Time: __1145 . Time changes happen often and if your time is changed the preop area will call you the afternoon before. - You and your visitor will be asked to self-screen and do not enter if you have any COVID symptoms. - A mask is optional within the hospital at this time. Patients may have clear liquids (water, carbonated beverages, clear teas, apple juice) until 3 hours prior to surgery with a maximum of 20 ounces. - No food from midnight until time of surgery - Infants may have breast milk until 4 hours before surgery, formula 6 hours prior to surgery. - Children will be allowed to drink immediately following surgery. If applicable, please bring a bottle or sippy cup to assist with drinking. Juice, water, soda, and popsicles are readily available. For infants on formula, please bring formula the day of surgery. Pacifiers are allowed. Take the following medications with a SIP of water the morning of surgery: ___EYE DROPS,METOPROLOL DO NOT STOP ANY OF YOUR OTHER PRESCRIPTION MEDICATIONS PRIOR TO SURGERY ?EXCEPT THE FOLLOWING Medications to discontinue per physician ___VIT. D 3 DAYS PRE OP.LAST DOSE Please no make-up, nail [place], hairspray, perfume, deodorant, or body powder the day of surgery. No jewelry (including any body piercings) or valuables the day of surgery, leave them at home. Please take a shower or bath the night before, or the morning of, surgery with an antibacterial soap. Wear comfortable, loose fitting clothing. Children are encouraged to wear pajamas. - Jewelry must be removed prior to entering the operating room. Rings and piercings that are not removed may be cut off. - The hospital will not accept responsibility for valuables. - Please leave all valuables, including medications, at home the day of surgery. If you are going home after surgery, a licensed stud driver must drive you home. - NO public transportation without another adult if you receive anesthesia. - We recommend that an adult stay with you for 24 hours following discharge. - We also recommend that you do not drive, make important decision, drink alcoholic beverages, or take any drugs that were not prescribed by your health care provider for at least 24 hours after your discharge time. For Pediatric surgeries, we recommend two adults accompany the child home. Follow any additional instructions given to you from your surgeon. If you or anyone in your household have experienced Covid symptoms in the past week, please notify your surgeon or the nurse liaison at the phone number below for possible testing. Telephone instructions given to __PATIENT and asked if any additional questions and then verbalized understanding. Patient advised to call surgeon office or pre surgery nurse liaison [phone] if any additional questions.
[2023-02-16 11:14] VITALS: BMI 33.7
--- NOTE | 2023-02-16 11:33 | PM.HPGS ---
History of Present Illness History of Present Illness Consent: Risks, benefits, and alternatives have been discussed and questions answered. Patient agrees to proceed with procedure. Chief complaint: left ureteral stone x2 Narrative: Shant Zaman is a 77 year old male who has undergone pelvic radiation for prostate cancer in the past. A couple months ago he had difficult left ureteral stone which we extracted endoscopically. On follow-up, although he was asymptomatic, he was found to have left hydronephrosis on ultrasound and the CT shows a recurrent 4 and 6 mm left distal ureteral calculus. After discussion of options he has elected to proceed with repeat left ureteroscopy, stone extraction with possible laser lithotripsy, retrograde pyelography and stent placement. Review of Systems Review of Systems: All systems reviewed & are unremarkable except as noted in HPI and below PMFSH Past Medical History Medical History Bacteremia (~10/2019) UTI with bacteremia, CNSS not saprophyticus. Khoury palsy (~2018) Chronic venous insufficiency of lower extremity COVID-19 Essential hypertension Glaucoma Gout Hepatic steatosis History of atrial fibrillation (~08/2022) due to sepsis History of pulmonary embolism (~02/2021) Hypogonadism in male Uses testosterone gel. Kidney stones Left ureteral stone Osteoarthritis Overactive bladder Paroxysmal atrial fibrillation (~10/2019) associated with sepsis Pre-diabetes Hemoglobin A1c was 6.3% in April 2019. Prostate cancer Pulmonary embolism 02/[address] scan performed for staging of prostate cancer bilateral lower lobe and middle lobe pulmonary embolism Retinal vein occlusion of left eye Rheumatoid arthritis with rheumatoid factor of multiple sites without organ or systems involvement Transient ischemic attack (~2014) Ureteral stone with hydronephrosis (~10/2022) Ureterolithiasis Vitamin D deficiency Surgical History Surgical History History of appendectomy (~8) History of cystoscopy (~05/2022) cystoscopy, left retrograde pyelography and left ureteral stent placement History of left cataract surgery (~2009) History of ureter stent (~10/2022) cystoscopy, left retrograde pyelogram and placement of left 6fr variable length stent Hx of lithotripsy (~04/2022) Left ESWL Family History Family History Father Diabetes mellitus Acute myocardial infarction Heart disease Hypertension Social History Social History Social History: The patient lives in [place] with his . They have 3 sons and 1 daughter. He smoked up to 3 packs of cigarettes per day and quit 1995. No alcohol or drug abuse. 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 [employer] Code status: Full code Surrogate decision maker: Dariusz () Smoking packs per day: 1 Smoking cigarettes per day: 20.0 Years smoked: 5 Smoking pack-years: 5.00 Smoking status: Former smoker Tobacco type: cigarettes Second hand tobacco smoke exposure: No Smoking end date: 07/23/92 Additional smoking assessment comments: pt states he started smoking at age 20 Alcohol intake: never Alcohol use details: occasional glass of wine Substance use: never Substance use type: does not use Lack of Transportation: No Lack of Food: Never True Current Housing: I Have Housing Concerned About Future Housing: No Difficulty Paying Gas/Electric Bills: No Difficulty Paying for Meds: No Currently Unemployed: No Education: Associate Degree Difficulty w/ Childcare or Family Care: No Living arrangements: with family Additional living arrangements comments: - D[facility]US[facility] Gender identity (if verbalized by the patient): Male Spiritual care concerns: No Agree t
--- NOTE | 2023-02-21 14:06 | WPDANESEPPF ---
Anes - Initial Pre Proc Eval Procedure: Operation Date: 02/22/23 11:45 Proposed Procedures p Cystoscopy, Left Ureteroscopy, Possible Left Retrograde Pyelogram, Possible Left Stone Extraction, Possible Left Stent Placement, Possible Holmium Laser Procedure - Pablo Walker MD Date/Time: 02/21/23 14:06 Surgeon: Pablo Walker MD Pre Op Diagnosis: left ureteral stone x2 Patient Data Age: 77 Gender: M Height: 1.78 m Weight: 106.6 kg Allergies Allergy/AdvReac Type Severity Reaction Status Date / Time No Known Drug Allergies Allergy Mild unknown Verified 02/22/23 11:07 Home Medications Medication Instructions Recorded Confirmed Type metoprolol tartrate 50 mg tablet 50 mg PO BID #180 tabs 09/14/22 02/22/23 Rx folic acid 400 mcg tablet 400 mcg PO DAILY 09/15/22 02/16/23 History brimonidine 0.2 % eye drops 1 drp EACH EYE BID #30 mL 09/22/22 02/16/23 Rx dorzolamide 2 % eye drops (Trusopt) 1 drp LEFT EYE TID #30 mL 09/22/22 02/16/23 Rx latanoprost 0.005 % eye drops 1 drp EACH EYE HS #30 mL 09/22/22 02/16/23 Rx (Xalatan) timolol maleate 0.5 % eye drops 1 drp EACH EYE Q12HR #30 mL 09/22/22 02/16/23 Rx hydroxychloroquine 200 mg tablet 400 mg PO DAILY #180 tabs 10/17/22 02/16/23 Rx cholecalciferol (vitamin D3) 125 250 mcg PO DAILY 11/18/22 02/16/23 History mcg (5,000 unit) tablet (Vitamin D3) peg 400-propylene glycol 0.4 %-0.3 1 drp EACH EYE QID PRN Dry Eye(S) 11/19/22 02/16/23 History % eye drops (Systane Ultra) oxybutynin chloride 10 mg 10 mg PO DAILY #90 tabs 12/20/22 02/16/23 Rx tablet,extended release 24 hr lisinopril 10 mg tablet 10 mg PO DAILY #90 tabs 01/17/23 02/16/23 Rx tamsulosin 0.4 mg capsule 0.8 mg PO HS 02/16/23 02/16/23 History Patient hx anesthesia problems: none Family hx anesthesia problems: none Results Review: All pre-operative results and documents have been reviewed as part of the pre-operative evaluation. [facility] Past Medical History Medical History Bacteremia (~10/2019) UTI with bacteremia, CNSS not saprophyticus. Khoury palsy (~2018) Chronic venous insufficiency of lower extremity COVID-19 Essential hypertension Glaucoma Gout Hepatic steatosis History of atrial fibrillation (~08/2022) due to sepsis History of pulmonary embolism (~02/2021) Hypogonadism in male Uses testosterone gel. Kidney stones Left ureteral stone Osteoarthritis Overactive bladder Paroxysmal atrial fibrillation (~10/2019) associated with sepsis Pre-diabetes Hemoglobin A1c was 6.3% in April 2019. Prostate cancer Pulmonary embolism 02/[address] scan performed for staging of prostate cancer bilateral lower lobe and middle lobe pulmonary embolism Retinal vein occlusion of left eye Rheumatoid arthritis with rheumatoid factor of multiple sites without organ or systems involvement Transient ischemic attack (~2014) Ureteral stone with hydronephrosis (~10/2022) Ureterolithiasis Vitamin D deficiency Surgical History Surgical History History of appendectomy (~1957) History of cystoscopy (~05/2022) cystoscopy, left retrograde pyelography and left ureteral stent placement History of left cataract surgery (~2009) History of ureter stent (~10/2022) cystoscopy, left retrograde pyelogram and placement of left 6fr variable length stent Hx of lithotripsy (~04/2022) Left ESWL Family History Family History Father Diabetes mellitus Acute myocardial infarction Heart disease Hypertension Social History Social History Social History: The patient lives in [place] with his . They have 3 sons and 1 daughter. He smoked up to 3 packs of cigarettes per day and quit 1995. No alcohol or drug abuse. 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
[2023-02-22] VITALS (7 sets, daily range): BP systolic 122–151; BP diastolic 71–96; PULSE 56–66; RESP 14–18; TEMP 36.2–36.3; O2SAT 97–100
--- NOTE | ~2023-02-22 | XR_ITS ---
EXAMINATION: XR stent kub - surgery INDICATION: Left stent placement TECHNIQUE: Two intraoperative fluoroscopic images are submitted for review. Total fluoroscopic time i s 109.5 seconds COMPARISON: None available FINDINGS: Fluoroscopic images demonstrate a partially imaged left internal ureteral stent in expected position. Please refer to procedure note for full details. IMPRESSION: 1. Please refer to procedure note for full details. Reviewed, dictated and finalized at location F.
--- NOTE | 2023-02-22 06:38 | WPDHPUPDATE1 ---
History and Physical Update Update Date/Time: 02/22/23 06:38 History and Physical has been reviewed, including an updated exam of the patient. There are NO changes in the patient's condition. Risks, benefits, and alternatives have been discussed and questions answered. Patient agrees to proceed with procedure.
[2023-02-22] MEDS: LACTATED RINGERS 1,000 ML 30 ML IV CONT (10:15)
[2023-02-22] MEDS: ceFAZolin 2 GM/D5W 50 ML 2 GM/50 ML BAG IVPB (12:35)
--- NOTE | 2023-02-22 13:22 | P.OP_ITS ---
Procedure Note - Detailed Date of Procedure 02/22/23 Pre-op Diagnosis Left ureteral stone x2 Post-op Diagnosis Same Procedure Performed Cystoscopy, left ureteroscopy with laser lithotripsy, stone extraction stent placement Surgeon Pablo Walker MD Anesthesia General Description of Procedure patient brought the op suite was prepped draped in routine sterile fashion while dorsal lithotomy position after the uneventful induction of a general LMA anesthetic. Cystoscopy is undertaken with a 19 F rigid cystoscope. He has moderate lateral lobe hyperplasia of the prostate. There was no intravesical foreign body or neoplasm. The bladder was slightly trabeculated. 0.035 in glidewire was advanced in left renal pelvis. He has a very impacted 7 mm left distal ureteral stone. I was able to dilate the ureter with an 8 F 10 F dilator. Ureteroscopy was undertaken with short tapered semi-rigid ureteral s cope. In addition to the larger stone smaller 4 mm stone is above it. Using the holmium laser I dusted the larger stone and removed all fragments, including the 4 mm stone. A there was no apparent ureteral injury and there were no residual stone fragments that I could identify at the termination of the procedure. A 4.8 F variable length stent was positioned with the proximal coil in renal pelvis and distal coil in the bladder. Drains Yes Packing No Pathology Yes Complications No immediate complications Condition Stable Disposition PACU
== END 2023-02-22 15:00 | disposition home or self-care (01) ==
PROVIDERS: PCP Family Medicine; Visit Provider Urology
PROC: (CPT 52352; principal; 2023-02-22 11:45)
DX: N20.1 Calculus of ureter (principal); I10 Essential (primary) hypertension; I48.0 Paroxysmal atrial fibrillation; M05.79 Rheumatoid arthritis with rheumatoid factor of multiple sites without organ or systems involvement; H40.9 Unspecified glaucoma; K76.0 Fatty (change of) liver, not elsewhere classified; E55.9 Vitamin D deficiency, unspecified; Z86.711 Personal history of pulmonary embolism; Z85.46 Personal history of malignant neoplasm of prostate; Z86.73 Personal history of transient ischemic attack (TIA), and cerebral infarction without residual deficits; Z87.891 Personal history of nicotine dependence; E66.9 Obesity, unspecified; Z68.34 Body mass index [BMI] 34.0-34.9, adult
CPT/HCPCS: 52356; 82365; 88300; C1726; C1758; C1769; C2617; J0690; J1100; J2405; J2704; J3010; J7120; Q9966

== ENCOUNTER 2023-03-14 13:43 | Inpatient (IN) | payer MEDICARE, SELFPAY ==
[2023-03-14] VITALS (20 sets, daily range): BP systolic 122–148; BP diastolic 64–99; PULSE 78–123; RESP 16–40; TEMP 36.7–38.1; O2SAT 87–98
--- NOTE | ~2023-03-14 | XR_ITS ---
EXAMINATION: XR chest 1V portable DATE: 03/15/2023 17:54 INDICATION: Shortness of breath and fever TECHNIQUE: frontal and lateral views of the chest were obtained. COMPARISON: Chest radiograph dated 09/18/2022 FINDINGS: Persistent mild linear discoid atelectasis/scarring at the bilateral lung bases. No other airspace op acities, pulmonary edema, pleural effusion or pneumothorax. The cardiomediastinal silhouette is withi n normal limits for AP technique. IMPRESSION: 1. Mild bibasilar atelectasis. Reviewed, dictated and finalized at location A.
--- NOTE | ~2023-03-14 | CT_ITS ---
EXAMINATION: CT brain wo con INDICATION: Increasing confusion COMPARISON: 11/18/2022 TECHNIQUE: Standard unenhanced head CT. The dose-length product (DLP) was 681.00 mGy-cm. The mA was a djusted according to patient size. Iterative reconstruction technique was employed. FINDINGS: No acute intraparenchymal hemorrhage. No evidence of mass lesion. No evidence of acute infa rction. There is mild periventricular and subcortical hypodensity probably related to small vessel is chemic disease. There is mild prominence of the sulci and ventricles related to cerebral atrophy. Int racranial calcified cerebral atherosclerosis is noted. No extra-axial collections. No mass effect or midline shift. The orbits and soft tissues are unremarkable. The visualized sinuses and mastoid air c ells are well aerated. Cerumen is noted in the external auditory canals. IMPRESSION: 1. No acute intracranial abnormality. 2. Age related findings. Reviewed, dictated and finalized at location A.
--- NOTE | ~2023-03-14 | CT_ITS ---
EXAMINATION: CT abdomen pelvis wo con DATE: 03/14/2023 15:47 INDICATION: History of kidney stones. Current UTI. TECHNIQUE: Computed tomography (CT) of the abdomen and pelvis was performed without intravenous contr ast. The dose-length product was 1275.62 mGy-cm. Automated exposure control and iterative reconstruct ion technique were employed. COMPARISON: CT dated 02/07/2023 FINDINGS: Lung bases unremarkable. Heart size normal. No significant pleural or pericardial effusion. There is atherosclerosis of the aorta with mild ectasia. No aneurysm. No significant lymphadenopathy . There is moderate left hydroureteronephrosis to the UVJ. There is diffuse bladder wall thickening. There is intraluminal gas dependently in the bladder. Prostate gland is enlarged. Nonobstructive renetta l gas pattern. Moderate colonic fecal loading. Nonspecific bilateral perinephric stranding. The liver , spleen, pancreas, right adrenal gland are unremarkable. There is a small 13 mm right renal cyst. Th ere is a 4 mm nonobstructing left renal stone. There is a fat-containing right inguinal hernia. IMPRESSION: 1. Moderate left hydroureteronephrosis. This may be sequela of recently passed stone. 2: Diffusely thickened bladder wall, consistent with cystitis. Nondependent gas in the bladder, most likely from recent instrumentation. 3: Nonobstructing left nephrolithiasis. Reviewed, dictated and finalized at location B. IMPRESSION: 1. Moderate left hydroureteronephrosis. This may be sequela of recently passed stone. 2: Diffusely thickened bladder wall, consistent with cystitis. Nondependent ga s in the bladder, most likely from recent instrumentation. 3: Nonobstructing left nephrolithiasis.
--- NOTE | 2023-03-14 14:39 | ED.GENADULT ---
HPI - General Adult General Chief complaint: Weakness Stated complaint: confused, weakness History of Present Illness HPI narrative: 77-year-old male with history of prostate cancer urinary retention, hypertension, kidney stones, diabetes presented to the emergency department for evaluation of altered mental status. Family states that over the last 24 hours patient has had increased confusion, low-grade fever, given stability. Patient does have prior history of prostate cancer but did not have a prostatectomy. Patient does have recent history of kidney stones and has had a ureteral stent removed. Patient follows up with Dr. Walker. Related Data Home Medications Medication Instructions Recorded Confirmed cholecalciferol (vitamin D3) 125 250 mcg PO DAILY 11/18/22 03/14/23 mcg (5,000 unit) tablet (Vitamin D3) peg 400-propylene glycol 0.4 %-0.3 1 drp EACH EYE QID PRN Dry Eye(S) 11/19/22 03/14/23 % eye drops (Systane Ultra) tamsulosin 0.4 mg capsule 0.8 mg PO HS 02/16/23 03/14/23 folic acid 1 mg tablet 1 mg PO BID 03/14/23 03/14/23 potassium citrate 15 mEq (1,620 15 meq PO BID 03/14/23 03/14/23 mg) tablet,extended release travoprost 0.004 % eye drops 1 drp EACH EYE HS 03/14/23 03/14/23 Allergies Allergy/AdvReac Type Severity Reaction Status Date / Time No Known Drug Allergies Allergy Mild unknown Verified 02/22/23 11:07 Review of Systems Review of Systems: All systems reviewed & are unremarkable except as noted in HPI and below PMFSH Past Medical History Medical History Bacteremia (~10/2019) UTI with bacteremia, CNSS not saprophyticus. Khoury palsy (~2018) Chronic venous insufficiency of lower extremity COVID-19 Essential hypertension Glaucoma Gout Hepatic steatosis History of atrial fibrillation (~08/2022) due to sepsis History of pulmonary embolism (~02/2021) Hypogonadism in male Uses testosterone gel. Kidney stones Left ureteral stone Osteoarthritis Overactive bladder Paroxysmal atrial fibrillation (~10/2019) associated with sepsis Pre-diabetes Hemoglobin A1c was 6.3% in April 2019. Prostate cancer Pulmonary embolism 02/[address] scan performed for staging of prostate cancer bilateral lower lobe and middle lobe pulmonary embolism Retinal vein occlusion of left eye Rheumatoid arthritis with rheumatoid factor of multiple sites without organ or systems involvement Transient ischemic attack (~2014) Ureteral stone with hydronephrosis (~10/2022) Ureterolithiasis Vitamin D deficiency Surgical History Surgical History History of appendectomy (~1957) History of cystoscopy (~05/2022) cystoscopy, left retrograde pyelography and left ureteral stent placement History of left cataract surgery (~2009) History of ureter stent (~10/2022) cystoscopy, left retrograde pyelogram and placement of left 6fr variable length stent Hx of lithotripsy (~04/2022) Left ESWL Family History Family History Father Diabetes mellitus Acute myocardial infarction Heart disease Hypertension Social History Social History Social History: The patient lives in [place] with his . They have 3 sons and 1 daughter. He smoked up to 3 packs of cigarettes per day and quit 1995. No alcohol or drug abuse. 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
--- NOTE | 2023-03-14 14:49 | PC.NURSE ---
Pt to CT at this time.
[2023-03-14 14:57] LABS: Hematocrit 40.3 % (42.0-52.0); Hemoglobin 13.6 g/dL (14.0-18.0); Mean Corpuscular HGB Conc 33.7 g/dl (32-36); Mean Corpuscular Hemoglobin 35.3 pg (26-34); Mean Corpuscular Volume 104.7 fl (80-100); Platelet Count Result 186 k/mm3 (150-375); Red Blood Count 3.85 M/mm3 (4.6-6.20); Red Cell Distribution Width 12.6 % (11.5-14.5)
[2023-03-14 15:01] LABS: Appearance Urine Cloudy (Clear); Bacteria Urine 4+ /hpf; Bilirubin Urine Negative (Negative); Blood Urine Trace (Negative); Color Urine Yellow (Yellow); Glucose Urine UA Negative (Negative); Ketones Urine Negative (Negative); Leukocyte Esterase Ur 3+ LEU/UL (Negative); Nitrate Urine Positive (Negative); Non Pathogenic Casts 0-2; Protein Urine 1+ mg/dL (Negative); RBC Urine 0-2 /hpf (0-2); Specific Grav Ur 1.016 (1.001-1.035); Squamous Epithelial Cell Urine None seen /hpf (Few); Urobilinogen Urine 0.2 mg/dL (<2.0); WBC Urine >100 /hpf; pH Urine 5.5 (5.0-9.0)
[2023-03-14 15:05] LABS: Add Urine Microscopic? YES
[2023-03-14 15:08] LABS: Influenza A QL RT-PCR Negative (Negative); Influenza B QL RT-PCR Negative (Negative); RSV RNA, RT-PCR Negative (Negative); SARS-CoV-2 RNA PCR Negative (Negative)
[2023-03-14 15:09] LABS: Lactic Acid Reflex 1.5 mmol/L (0.7-2.0)
[2023-03-14 15:14] LABS: Alanine Aminotransferase 29 U/L (6-50); Albumin Level 4.6 g/dL (3.5-5.1); Alkaline Phosphatase 62 U/L (38-126); Aspartate Amino Transferase 27 U/L (17-59); Bilirubin,Total 0.8 mg/dL (0.2-1.3); Blood Urea Nitrogen 30 mg/dL (9-20); Calcium 9.2 mg/dL (8.4-10.2); Carbon Dioxide 25 mmol/L (22-30); Chloride 101 mmol/L (98-107); Estimated CRCL calculation 33 ml/min; Estimated Glomerular Filt Rate 39; Glucose 112 mg/dL (65-110); Potassium 4.7 mmol/L (3.4-5.0)
[2023-03-14 15:18] LABS: Anion Gap 9 mmol/L (8-16); Sodium 135 mmol/L (137-145)
--- NOTE | 2023-03-14 15:39 | PC.NURSE ---
Pt taken back to CT at this time.
[2023-03-14 15:41] LABS: Band Neutrophils Percent 4 % (0-6); Monocytes Percent Manual 10 % (3-9); Neutrophils Percent Manual 85 % (46-73); Total Cells Counted 100
[2023-03-14 15:42] LABS: Platelet Estimate Adequate (Adequate); Schistocytes None Seen (NORMAL)
--- NOTE | 2023-03-14 18:15 | ADMGEN ---
This patient, Shant Zaman, was admitted to Medical Room 344-01. Patient/family oriented to hospital policies and general routines including ID bracelet, bed and alarms, visiting hours, pain management, procedures, bathroom and other care routines, personal items, smoking policy, room service/diet, and visiting hours. Information on how to activate the Rapid Response Team has been discussed. Patient/Family are encouraged to report perceived risks to care and to ask questions if they do not understand what they are told or what they should do.
[2023-03-14] MEDS: METOPROLOL TARTRATE INJ 5 MG/5 ML VIAL IV PUSH (20:03)
[2023-03-14] MEDS: SODIUM CHLORIDE 0.9% IV 1,000 ML 100 ML IV CONT (20:04)
--- NOTE | 2023-03-14 21:15 | PM.IMHP ---
H&P: HPI History of Present Illness Date/Time: 03/14/23 21:15 Chief Complaint: Weakness and confusion Narrative: This is a 77 year old male patient who has a history of prostate cancer and urinary tension with hypertension kidney stones and diabetes. The patient presented to the emergency room to be evaluated for altered mental status. The family stated for over the last 24 hours the patient had increased confusion and low-grade fever. When I assessed the patient he stated that his made him common there is nothing wrong with him. The patient does have a recent history of kidney stones and has had a ureteral stent removed. The patient follows with Dr. Walker. H&H is 13.6 and 40.3 which is his baseline. Sodium 135. BUN 30 creatinine 1.7. Urine was positive for nitrates 3+ leukocyte esterase and wbc's greater than 100. Micro urine on 11/18/2022 shows Enterobacter colic complex. The patient was given Rocephin and IV Lopressor. The patient has a history of AFib and has RVR. Abdominal pelvis CT was read as1. Moderate left hydroureteronephrosis. This may be sequela of recently passed stone. 2:? Diffusely thickened bladder wall, consistent with cystitis. Nondependent gas in the bladder, most likely from recent instrumentation. 3:? Nonobstructing left nephrolithiasis. Head CT was read as1. No acute intracranial abnormality. 2. Age related findings. The patient is being admitted to inpatient status on the date of service of 03/14/2023 Review of Systems Review of Systems: All systems reviewed & are unremarkable except as noted in HPI and below Constitutional: Constitutional: Reports as per HPI and Reports no additional constitutional complaints Eyes: Eyes: Reports as per HPI and Reports no additional eye complaints ENT: Reports system reviewed and no additional complaints, except as documented and Reports Normal hearing present Cardiovascular: Cardiovascular: Reports no additional cardiovascular complaints Respiratory: Respiratory: Reports no additional respiratory complaints and Reports no additional respiratory complaints Gastrointestinal: Gastrointestinal: Reports as per HPI and Reports no additional gastrointestinal complaints Musculoskeletal: Musculoskeletal: Reports no additional musculoskeletal complaints Integumentary/Breasts: Skin/Breast: Reports system reviewed and no additional complaints, except as docu and Reports as per HPI Neurologic: Reports system reviewed and no additional complaints, except as documented, Reports as per HPI and Reports Normal hearing present Psychiatric: Psychiatric: Reports no additional psychiatric complaints and Reports as per HPI Endocrine: Endocrine: Reports no additional endocrine complaints Hematologic/Lymphatic: Hematologic/Lymphatic: Reports no additional hematologic/lymphatic complaints Allergic/Immunologic: Allergic/Immunologic: Reports no additional allergic/immunologic complaints [facility] Past Medical History Medical History (Updated 03/15/23 @ 02:06 by Daphne Padilla NP) Bacteremia (~10/2019) UTI with bacteremia, CNSS not saprophyticus. Khoury palsy (~2018) Chronic venous insufficiency of lower extremity COVID-19 Essential hypertension Glaucoma Gout Hepatic steatosis History of atrial fibrillation (~08/2022) due to sepsis History of pulmonary embolism (~02/2021) Hypogonadism in male Uses testosterone gel. Kidney stones Left ureteral stone Osteoarthritis Overactive bladder Paroxysmal atrial fibrillation (~10/2019) associated with sepsis Pre-diabetes Hemoglobin A1c was 6.3% in April 2019. Prostate cancer Pulmonary embolism 02/[address] scan performed for staging of prostate cancer bilateral lower lobe and middle lobe pulmonary embolism Retinal vein occlusion of left eye Rheumatoid arthritis with rheumatoid factor of multiple sites without organ or systems involvement Transient ischemic attack (~2014) Ureteral stone with hydronephrosis (~10/2022) Ureteroli
[2023-03-14] MEDS: TIMOLOL MALEATE 0.5% OP SOLN 5 ML BOTTLE 1 DROP EACH EYE (22:24)
[2023-03-14] MEDS: BRIMONIDINE TARTRATE 0.2% OP SOLN 5 ML BTL 1 DROP EACH EYE (22:24)
[2023-03-14] MEDS: TAMSULOSIN HCL 0.4 MG CAPSULE 0.8 MG PO (22:26)
[2023-03-14] MEDS: METOPROLOL TARTRATE 50 MG TAB PO (22:26)
[2023-03-14] MEDS: FOLIC ACID 1 MG TABLET PO (22:26)
[2023-03-14] MEDS: DORZOLAMIDE HCL 2% OPHTH DROPS 1 DROP LEFT EYE ×2 (22:29→22:32)
[2023-03-14] MEDS: LATANOPROST 0.005% OP SOLN 2.5 ML BTL 1 DROP EACH EYE (22:29)
[2023-03-15] VITALS (14 sets, daily range): BP systolic 110–134; BP diastolic 49–69; PULSE 75–102; RESP 16–30; TEMP 37–38.1; O2SAT 94–100
--- NOTE | 2023-03-15 02:12 | ECG_ITS ---
Measurements Intervals [place] Rate: 79 P: 5 [place]: 201 QRS: 30 QRSD: 177 T: -22 QT: 463 QTc: 532 Interpretive Statements SINUS RHYTHM WITH FREQUENT SUPRAVENTRICULAR PREMATURE COMPLEXES RIGHT BUNDLE BRANCH BLOCK [120+ ms QRS DURATION, UPRIGHT V1, 40+ ms S IN I/aVL/V4/V5/V6] COMPARED TO ECG 11/19/2022 07:09:25 NO SIGNIFICANT CHANGES Electronically Signed On 03-15-2023 11:00:32 CDT by Kofi Wagner M.D.
[2023-03-15 03:17] LABS: Hematocrit 41.4 % (42.0-52.0); Hemoglobin 13.5 g/dL (14.0-18.0); Mean Corpuscular HGB Conc 32.6 g/dl (32-36); Mean Corpuscular Hemoglobin 35.1 pg (26-34); Mean Corpuscular Volume 107.5 fl (80-100); Mean Platelet Volume 9.1 fl (7.4-10.4); Platelet Count Result 171 k/mm3 (150-375); Red Blood Count 3.85 M/mm3 (4.6-6.20); Red Cell Distribution Width 12.7 % (11.5-14.5); White Blood Count 13.1 K/mm3 (4.5-10.0)
[2023-03-15 03:24] LABS: Magnesium 1.9 mg/dL (1.6-2.3)
[2023-03-15 03:47] LABS: Band Neutrophils Percent 4 % (0-6); Lymphocytes Absolute Manual 0.91 K/mm3 (1.1-4.5); Monocytes Absolute Manual 0.91 K/mm3 (0.1-0.90); Monocytes Percent Manual 7 % (3-9); Neutrophils Absolute Manual 11.26 K/mm3 (1.3-6.7); Neutrophils Percent Manual 82 % (46-73); Total Cells Counted 100
[2023-03-15 03:48] LABS: Macrocytosis 1+ (NORMAL); Platelet Estimate Adequate (Adequate); Schistocytes None Seen (NORMAL)
[2023-03-15 05:43] LABS: Potassium 4.3 mmol/L (3.4-5.0)
[2023-03-15 05:48] LABS: Alanine Aminotransferase 28 U/L (6-50); Albumin Level 4.1 g/dL (3.5-5.1); Alkaline Phosphatase 52 U/L (38-126); Anion Gap 9 mmol/L (8-16); Aspartate Amino Transferase 27 U/L (17-59); Bilirubin,Total 1.1 mg/dL (0.2-1.3); Blood Urea Nitrogen 27 mg/dL (9-20); Calcium 8.9 mg/dL (8.4-10.2); Carbon Dioxide 18 mmol/L (22-30); Chloride 103 mmol/L (98-107); Estimated CRCL calculation 35 ml/min; Estimated Glomerular Filt Rate 42; Glucose 124 mg/dL (65-110); Sodium 130 mmol/L (137-145)
[2023-03-15] MEDS: SODIUM CHLORIDE 0.9% IV 1,000 ML 100 ML IV CONT ×2 (05:57→16:52)
[2023-03-15] MEDS: ACETAMINOPHEN 325 MG TABLET 650 MG PO ×2 (05:57→17:48)
[2023-03-15] MEDS: DORZOLAMIDE HCL 2% OPHTH DROPS 1 DROP LEFT EYE ×3 (05:57→21:29)
--- NOTE | 2023-03-15 06:56 | WPDURCON ---
Assessment and Plan Assessment and plan (1) Acute UTI: Code(s): N39.0 - Urinary tract infection, site not specified Status: Acute (2) AMS (altered mental status): Code(s): R41.82 - Altered mental status, unspecified Status: Acute (3) Hydronephrosis, left: Code(s): N13.30 - Unspecified hydronephrosis Status: Acute Assessment and Plan: Left hydronephrosis without ureteral calculi is suggestive of a mild obstruction due to ureteral edema. My goal will be to manage this without ureteral stent replacement unless we see fever, progressive leukocytosis or degredation in renal funciton.. Agree with ceftriaxone pending culture results. Urology Consult Note HPI Date Seen: 03/15/23 Requesting Physician: Shant Matt MD Primary Care Provider: Campbell Cho MD Consult Narrative Narrative: Shant Zaman is a 77 year old maleWell known to me with a history of prostate cancer and, more recently, large stones in his distal left ureter. A couple weeks ago he underwent endoscopic extraction of his ureteral stones with stent placement. Approximately 48 hours ago his ureteral stent was removed. Within a day he developed low-grade fever and mental status changes. ER evaluation shows probable urinary tract infection. Imaging shows left hydronephrosis without stones, consistent with a new residual ureteral edema. He has been admitted and empirically started on broad-spectrum antibiotics (Ceftriaxone). Review of Systems Cardiovascular: Cardiovascular: Denies chest pain, Denies lightheadedness, Denies palpitations and Denies dyspnea Respiratory: Respiratory: Denies dyspnea Gastrointestinal: Gastrointestinal: Denies diarrhea, Denies nausea and Denies vomiting Genitourinary: Genitourinary: Denies hematuria and Denies dysuria Endocrine: Endocrine: Denies palpitations FOR[facility]LY [facility] Past Medical History Medical History (Updated 03/15/23 @ 06:59 by Pablo Walker MD) Bacteremia (~10/2019) UTI with bacteremia, CNSS not saprophyticus. Khoury palsy (~2018) Chronic venous insufficiency of lower extremity COVID-19 Essential hypertension Glaucoma Gout Hepatic steatosis History of atrial fibrillation (~08/2022) due to sepsis History of pulmonary embolism (~02/2021) Hypogonadism in male Uses testosterone gel. Kidney stones Left ureteral stone Osteoarthritis Overactive bladder Paroxysmal atrial fibrillation (~10/2019) associated with sepsis Pre-diabetes Hemoglobin A1c was 6.3% in April 2019. Prostate cancer Pulmonary embolism 02/[address] scan performed for staging of prostate cancer bilateral lower lobe and middle lobe pulmonary embolism Retinal vein occlusion of left eye Rheumatoid arthritis with rheumatoid factor of multiple sites without organ or systems involvement Transient ischemic attack (~2014) Ureteral stone with hydronephrosis (~10/2022) Ureterolithiasis Vitamin D deficiency Surgical History Surgical History (Updated 03/15/23 @ 02:04 by Daphne Padilla NP) H/O colonoscopy with polypectomy History of appendectomy (~1957) History of cystoscopy (~05/2022) cystoscopy, left retrograde pyelography and left ureteral stent placement History of left cataract surgery (~2009) History of ureter stent (~10/2022) cystoscopy, left retrograde pyelogram and placement of left 6fr variable length stent Hx of lithotripsy (~04/2022) Left ESWL Family History Family History Father Diabetes mellitus Acute myocardial infarction Heart disease Hypertension Social History Social History Social History: The patient lives in [place] with his . They have 3 sons and 1 daughter. He smoked up to 3 packs of cigarettes per day and quit 1995. No alcohol or drug abuse. 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
[2023-03-15] MEDS: BRIMONIDINE TARTRATE 0.2% OP SOLN 5 ML BTL 1 DROP EACH EYE ×2 (08:49→21:28)
[2023-03-15] MEDS: METOPROLOL TARTRATE 50 MG TAB PO ×2 (08:50→21:26)
[2023-03-15] MEDS: oxyBUTYnin CHLORIDE XL 5 MG TAB.ER.24 10 MG PO (08:51)
[2023-03-15] MEDS: FOLIC ACID 1 MG TABLET PO ×2 (08:51→17:05)
[2023-03-15] MEDS: lisinopriL 10 MG TABLET PO (08:51)
[2023-03-15] MEDS: HYDROXYCHLOROQUINE SULFATE 200 MG TABLET 400 MG PO (08:51)
[2023-03-15] MEDS: POTASSIUM CITRATE 5 MEQ TAB CR 15 MEQ PO ×2 (08:55→17:05)
[2023-03-15] MEDS: TIMOLOL MALEATE 0.5% OP SOLN 5 ML BOTTLE 1 DROP EACH EYE ×2 (08:57→21:29)
[2023-03-15] MEDS: CHOLECALCIFEROL 1,000 UNITS TABLET 10000 UNITS PO (08:58)
--- NOTE | 2023-03-15 11:17 | PM.IMPN ---
Progress Note: A&P Assessment and Plan (1) Acute UTI: Code(s): N39.0 - Urinary tract infection, site not specified Status: Acute Assessment and Plan: Continue with Rocephin and IV fluids. The patient recently had cystoscopy left ureteroscopy and laser lithotripsy stone extraction on 02/22/2023. And stent placement which was subsequently removed. I did consult Urology Blood and urine cultures are pending. Continue with tamsulosin for the history of renal stones. (2) AMS (altered mental status): Code(s): R41.82 - Altered mental status, unspecified Status: Acute Assessment and Plan: Most likely secondary to the infection. (3) History of pulmonary embolism: Onset Date: ~02/2021 Code(s): Z86.711 - Personal history of pulmonary embolism Status: Acute Assessment and Plan: The patient does not appear to be on any anticoagulation. (4) Gout: Qualifiers: Gout site: unspecified site Gout etiology: unspecified cause Chronicity: unspecified Qualified Code(s): M10.9 - Gout, unspecified Code(s): M10.9 - Gout, unspecified Status: Acute Assessment and Plan: No active attack. (5) Glaucoma: Qualifiers: Glaucoma type: unspecified Laterality: unspecified laterality Qualified Code(s): H40.9 - Unspecified glaucoma Code(s): H40.9 - Unspecified glaucoma Status: Acute Assessment and Plan: Continue with home eye drops (6) Pre-diabetes: Code(s): R73.03 - Prediabetes Status: Acute Assessment and Plan: The patient is not currently on any medication. (7) Paroxysmal atrial fibrillation: Onset Date: ~10/2019 Code(s): I48.0 - Paroxysmal atrial fibrillation Status: Acute Assessment and Plan: Continue with metoprolol. The patient was also given IV Lopressor. Patient does not appear to be on any anticoagulation at this time. (8) Essential hypertension: Code(s): I10 - Essential (primary) hypertension Status: Chronic Assessment and Plan: Continue with metoprolol and lisinopril. Subjective Date/time seen: 03/15/23 11:17 Interval history: No complaints Exam Const: General: cooperative, healthy appearing, comfortable, no acute distress, well developed, awake, Physically active, average body habitus and well nourished Nutritional Appearance: average body habitus and well nourished Orientation/consciousness: oriented to person and oriented to place Limitations: no limitations HENMT: Head: normal to inspection, No palpable skull fracture present, normocephalic and atraumatic Ears: hearing grossly normal bilaterally and external ears normal Face/Nose/Sinus: Normal external nose present and Normal nares present Eyes: General: appearance normal, both eyes and all related structures Alignment and Position: alignment normal Periorbital: periorbital findings normal Eyelids: eyelids normal Conjunctivae: conjunctivae normal Sclera: sclerae normal Pupils: Equal, round and reactive pupils present EOM: EOMs intact bilaterally Neck: Neck: normal visual inspection, full ROM, no lymphadenopathy, trachea midline and supple Chest: Chest palpation & inspection: normal inspection of the chest Resp: Effort & Inspection: normal respiratory effort Auscultation: clear to auscultation bilaterally Cardio: Palpation: normal PMI Rate: tachycardic Rhythm: abnormal rhythm Heart sounds: S1 normal heart sound present and S2 normal heart sound present Peripheral pulses: Peripheral pulses 2+ throughout GI: Inspection: normal to inspection Auscultation: normal bowel sounds Rectal Exam: deferred Back/Spine/Pelvis: Cervical Spine: cervical ROM normal Skin: General skin exam: normal color Lesions: no lesions Rashes: no rashes Trauma: no lacerations or abrasions Wounds: no wounds Hair: normal Nails: normal Neuro: General: oriented to person and oriented to place Crania
[2023-03-15] MEDS: ARTIFICIAL TEARS OPHTH SOLN 15 ML BOTTLE 1 DROP EACH EYE (12:16)
[2023-03-15 14:04] LABS: Magnesium 1.8 mg/dL (1.6-2.3); Phosphorus 3.6 mg/dL (2.5-4.5)
[2023-03-15] MEDS: TAMSULOSIN HCL 0.4 MG CAPSULE 0.8 MG PO (21:26)
[2023-03-15] MEDS: LATANOPROST 0.005% OP SOLN 2.5 ML BTL 1 DROP EACH EYE (21:26)
[2023-03-16] VITALS: PULSE 83
[2023-03-16 04:00] VITALS: PULSE 83
[2023-03-16] MEDS: DORZOLAMIDE HCL 2% OPHTH DROPS 1 DROP LEFT EYE (05:57)
[2023-03-16 06:00] VITALS: BP 121/55; PULSE 55; RESP 16; TEMP 36.5; O2SAT 95
[2023-03-16 08:04] VITALS: PULSE 84
--- NOTE | 2023-03-16 08:15 | WPDUROPN2 ---
Progress Note: A&P Assessment and Plan (1) Hydronephrosis, left: Code(s): N13.30 - Unspecified hydronephrosis Status: Acute (2) Acute UTI: Code(s): N39.0 - Urinary tract infection, site not specified Status: Acute Assessment and Plan: Responding to abx./supportive care. No plans to replace stent in absence of fever/flank pain. Will plan outpatient renal u/s 2-3 weeks. Home anytime from my standpoint (I'd be comfortable with empiric oral cephalosporin if sensitivities not available today). Subjective Subjective Date/Time Seen: 03/16/23 08:15 Interval history: Comfortable, no complaints Review of Systems Cardiovascular: Cardiovascular: Denies chest pain, Denies lightheadedness, Denies palpitations and Denies dyspnea Respiratory: Respiratory: Denies dyspnea Gastrointestinal: Gastrointestinal: Denies diarrhea, Denies nausea and Denies vomiting Genitourinary: Genitourinary: Denies hematuria and Denies dysuria Endocrine: Endocrine: Denies palpitations Exam Const: General: no acute distress Resp: Effort & Inspection: normal respiratory effort GI: Inspection: non-distended GI Palp: No abdominal tenderness and No Guarding due to palpation present (GI) Auscultation: normal bowel sounds Objective Data Vital Signs Vital Signs: Vital Signs - 24 hr 03/15/23 08:50 03/15/23 09:01 03/15/23 12:00 Temperature Pulse Rate 94 75 Respiratory Rate Blood Pressure Pulse Oximetry Oxygen Delivery Room Air 03/15/23 13:51 03/15/23 14:00 03/15/23 15:31 Temperature 98.6 F Pulse Rate 82 83 Respiratory Rate 30 H 22 H Blood Pressure 134/69 Pulse Oximetry 100 Oxygen Delivery Room Air 03/15/23 17:27 03/15/23 17:48 03/15/23 16:04 Temperature 100.5 F H 100.5 F H Pulse Rate 85 81 Respiratory Rate 30 H Blood Pressure 121/56 L Pulse Oximetry 100 Oxygen Delivery Room Air 03/15/23 18:48 03/15/23 21:26 03/15/23 21:26 Temperature 100 F H 98.8 F Pulse Rate 80 100 Respiratory Rate 16 Blood Pressure 110/58 L Pulse Oximetry 95 Oxygen Delivery 03/15/23 20:00 03/15/23 20:00 03/16/23 00:00 Temperature Pulse Rate 102 H 83 Respiratory Rate Blood Pressure Pulse Oximetry Oxygen Delivery Room Air 03/16/23 04:00 03/16/23 06:00 Temperature 97.7 F Pulse Rate 83 55 L Respiratory Rate 16 Blood Pressure 121/55 L Pulse Oximetry 95 Oxygen Delivery Intake/Output Intake/Output: Intake & Output 03/13/23 03/14/23 03/15/23 03/16/23 23:59 23:59 23:59 23:59 Intake Total 50 3432 Output Total 175 675 200 Balance -125 2757 -200 Meds/Results Medications: Active Medications Generic Name Dose Route Start Last Admin Trade Name Freq PRN Reason Stop Dose Admin Acetaminophen 650 mg 03/14/23 18:48 03/15/23 17:48 Acetaminophen 325 Mg Tablet PO 650 mg Q4H PRN Administration Pain or Fever Hydrocodone Bitart/Acetaminophen 1 tab 03/14/23 21:16 Hydrocodone/Acetaminophen (*Crx) 5-325 Mg Tablet PO Q6H PRN pain Artificial Tears 1 drop 03/14/23 21:16 03/15/23 12:16 Artificial Tears Ophth Soln 15 Ml Bottle EACH EYE 1 drop QID PRN Administration Dry Eye(S) Brimonidine Tartrate 1 drop 03/14/23 21:20 03/15/23 21:28 Brimonidine Tartrate 0.2% Op Soln 5 Ml Btl EACH EYE 1 drop Q12HR MART Administration Dorzolamide HCl 1 drop 03/14/23 21:20 03/16/23 05:57 Dorzolamide Hcl 2% Ophth Drops LEFT EYE 1 drop Q8HR MART Administration Folic Acid 1 mg 03/14/23 21:20 03/15/23 17:05 Folic Acid 1 Mg Tablet PO 1 mg BID MART Administration Hydroxychloroquine Sulfate 400 mg 03/15/23 09:00 03/15/23 08:51 Hydroxychloroquine Sulfate 200 Mg Tablet PO 400 mg DAILY MART Administration Ceftriaxone Sodium 1 gm in 50 mls @ 100 mls/hr 03/15/23 12:00 03/15/23 12:45 Rocephin 1 Gm/Ns 50 Ml IVPB Infused Q24H MART Infusion Latanoprost 1 drop
[2023-03-16] MEDS: BRIMONIDINE TARTRATE 0.2% OP SOLN 5 ML BTL 1 DROP EACH EYE (09:20)
[2023-03-16] MEDS: oxyBUTYnin CHLORIDE XL 5 MG TAB.ER.24 10 MG PO (09:20)
[2023-03-16] MEDS: TIMOLOL MALEATE 0.5% OP SOLN 5 ML BOTTLE 1 DROP EACH EYE (09:20)
[2023-03-16] MEDS: POTASSIUM CITRATE 5 MEQ TAB CR 15 MEQ PO (09:20)
[2023-03-16 09:21] VITALS: PULSE 103
[2023-03-16] MEDS: FOLIC ACID 1 MG TABLET PO (09:21)
[2023-03-16] MEDS: CHOLECALCIFEROL 1,000 UNITS TABLET 10000 UNITS PO (09:21)
[2023-03-16] MEDS: HYDROXYCHLOROQUINE SULFATE 200 MG TABLET 400 MG PO (09:21)
[2023-03-16] MEDS: lisinopriL 10 MG TABLET PO (09:21)
[2023-03-16] MEDS: METOPROLOL TARTRATE 50 MG TAB PO (09:21)
--- NOTE | 2023-03-16 11:40 | PM.DS ---
DS: Admitting Diagnosis Discharge Date March 16, 2023 Admitting Diagnosis UTI DS: Discharge Diagnosis Discharge Diagnosis (1) Acute UTI: Code(s): N39.0 - Urinary tract infection, site not specified Status: Acute Assessment and Plan: Continue with Rocephin and IV fluids. The patient recently had cystoscopy left ureteroscopy and laser lithotripsy stone extraction on 02/22/2023. And stent placement which was subsequently removed. I did consult Urology Blood and urine cultures are pending. Continue with tamsulosin for the history of renal stones. (2) AMS (altered mental status): Code(s): R41.82 - Altered mental status, unspecified Status: Acute Assessment and Plan: Most likely secondary to the infection. (3) History of pulmonary embolism: Onset Date: ~02/2021 Code(s): Z86.711 - Personal history of pulmonary embolism Status: Acute Assessment and Plan: The patient does not appear to be on any anticoagulation. (4) Gout: Qualifiers: Gout site: unspecified site Gout etiology: unspecified cause Chronicity: unspecified Qualified Code(s): M10.9 - Gout, unspecified Code(s): M10.9 - Gout, unspecified Status: Acute Assessment and Plan: No active attack. (5) Glaucoma: Qualifiers: Glaucoma type: unspecified Laterality: unspecified laterality Qualified Code(s): H40.9 - Unspecified glaucoma Code(s): H40.9 - Unspecified glaucoma Status: Acute Assessment and Plan: Continue with home eye drops (6) Pre-diabetes: Code(s): R73.03 - Prediabetes Status: Acute Assessment and Plan: The patient is not currently on any medication. (7) Paroxysmal atrial fibrillation: Onset Date: ~10/2019 Code(s): I48.0 - Paroxysmal atrial fibrillation Status: Acute Assessment and Plan: Continue with metoprolol. The patient was also given IV Lopressor. Patient does not appear to be on any anticoagulation at this time. (8) Essential hypertension: Code(s): I10 - Essential (primary) hypertension Status: Chronic Assessment and Plan: Continue with metoprolol and lisinopril. DS: Summary Hospital Course Hospital Course: Admitted for UTI. Urology was consulted and no intervention was needed. Antibiotics on discharge. Otherwise patient can follow up with Urology as an outpatient Time Spent with Patient Time attestation: Total time spent providing and/or coordinating discharge services: Exam Const: General: cooperative, healthy appearing, comfortable, no acute distress, well developed, awake, Physically active, average body habitus and well nourished Nutritional Appearance: average body habitus and well nourished Orientation/consciousness: oriented to person and oriented to place Limitations: no limitations HENMT: Head: normal to inspection, No palpable skull fracture present, normocephalic and atraumatic Ears: hearing grossly normal bilaterally and external ears normal Face/Nose/Sinus: Normal external nose present and Normal nares present Eyes: General: appearance normal, both eyes and all related structures Alignment and Position: alignment normal Periorbital: periorbital findings normal Eyelids: eyelids normal Conjunctivae: conjunctivae normal Sclera: sclerae normal Pupils: Equal, round and reactive pupils present EOM: EOMs intact bilaterally Neck: Neck: normal visual inspection, full ROM, no lymphadenopathy, trachea midline and supple Chest: Chest palpation & inspection: normal inspection of the chest Resp: Effort & Inspection: normal respiratory effort Auscultation: clear to auscultation bilaterally Cardio: Palpation: normal PMI Rate: tachycardic Rhythm: abnormal rhythm Heart sounds: S1 normal heart sound present and S2 normal heart sound present Peripheral pulses: Peripheral pulses 2+ throughout GI: Inspection: normal to inspection Auscultation:
[2023-03-16 12:05] VITALS: PULSE 94
--- NOTE | 2023-03-16 13:09 | PC.NURSE ---
Pt discharging home with . Pt is A&O4 male who has periods of confusion. Pt has expresses no needs and denies any pain at this time. Pt has been compliant with care. Pt IV was removed prior to discharge and pt tolerated it well. Pt and family were educated on discharge instructions. RN stressed the importance of using a walker over using a cane. Pt does not agree with recommendation. Pt IV was removed and pt tolerated well. Pt was assisted with dressing. Pt was wheeled down to vehicle. Pt was monitored for any changes in status.
== END 2023-03-16 13:05 | disposition home or self-care (01) | DRG 690 ==
LOC: ANHED 14:34 → ANH3MED 17:50
PROVIDERS: Nurse Practitioner; Admitting Provider Chiropractor; Emergency Provider Emergency Medicine; PCP Family Medicine; Visit Provider Chiropractor
DX: N39.0 Urinary tract infection, site not specified (principal); B96.1 Klebsiella pneumoniae [K. pneumoniae] as the cause of diseases classified elsewhere; R41.82 Altered mental status, unspecified; E55.9 Vitamin D deficiency, unspecified; H40.9 Unspecified glaucoma; I10 Essential (primary) hypertension; I48.0 Paroxysmal atrial fibrillation; K76.0 Fatty (change of) liver, not elsewhere classified; M06.9 Rheumatoid arthritis, unspecified; M10.9 Gout, unspecified; N13.30 Unspecified hydronephrosis; R33.9 Retention of urine, unspecified; R73.03 Prediabetes; Z86.73 Personal history of transient ischemic attack (TIA), and cerebral infarction without residual deficits; Z90.49 Acquired absence of other specified parts of digestive tract; Z87.891 Personal history of nicotine dependence; Z87.442 Personal history of urinary calculi; Z86.16 Personal history of COVID-19; Z86.711 Personal history of pulmonary embolism; Z20.822 Contact with and (suspected) exposure to COVID-19; Z85.46 Personal history of malignant neoplasm of prostate
CPT/HCPCS: 36415; 70450; 71045; 74176; 80053; 81001; 83605; 83735; 84100; 85025; 87040; 87077; 87086; 87186; 87637; 93005; 96365; 97161; 97165; 97530; 97535; 99285; A9270; J0696; J7030

== ENCOUNTER 2023-03-28 07:03 | Inpatient (IN) | payer MEDICARE, SELFPAY ==
[2023-03-28] VITALS (27 sets, daily range): BP systolic 96–222; BP diastolic 43–183; PULSE 66–145; RESP 18–32; TEMP 36.2–38.9; O2SAT 87–100; BMI 32.0
--- NOTE | ~2023-03-28 | CT_ITS ---
EXAMINATION: CT abdomen pelvis w con DATE: 03/28/2023 09:07 INDICATION: Dysuria. Kidney stone. TECHNIQUE: Computed tomography (CT) of the abdomen and pelvis was performed with 100 mL Omnipaque 350 intravenous contrast. Automated exposure control and iterative reconstruction technique were employe d. The dose-length product was 1160.62 mGy-cm. COMPARISON: CT abdomen and pelvis 03/14/2023, 03/02/2022 FINDINGS: The visualized portions of the lung bases demonstrate mild atelectasis and mild chronic alexia g disease. No pleural effusion. The heart size is normal. There are coronary artery calcifications. N o pericardial effusion. The liver, gallbladder, spleen, pancreas, and right adrenal gland are normal. There is chronic nodular thickening of left adrenal gland, likely benign. There is a 17 mm cyst in r ight kidney. There is moderate left hydronephrosis and hydroureter with urothelial thickening and enh ancement. There is a 3 mm stone in distal left ureter. There is chronic diffuse bladder wall thickeni ng, likely secondary to chronic outlet obstruction from the mildly enlarged prostate. There is a righ t inguinal hernia containing fat. There is diverticulosis of the colon without evidence of diverticul itis. There are no dilated loops of bowel. The appendix is not visualized. There are no pathologicall y enlarged lymph nodes. There is no free intraperitoneal fluid. Aortic atherosclerosis is noted. Ther e is mild bilateral gynecomastia. There is severe lumbar spondylosis. IMPRESSION: 1. 3 mm stone in distal left ureter with moderate left hydronephrosis and hydroureter. 2. Left-sided pyelitis. Reviewed, dictated and finalized at location A. IMPRESSION: 1. 3 mm stone in distal left ureter with moderate left hydronephrosis and hydro ureter. 2. Left-sided pyelitis.
--- NOTE | ~2023-03-28 | XR_ITS ---
EXAMINATION: XR stent kub - surgery DATE: 03/28/2023 11:35 INDICATION: Left renal stone extraction with stent placement TECHNIQUE: 2 fluoroscopic images of the abdomen and pelvis were obtained during procedure performed poornima Walker. Radiologist was not present for the imaging or procedure. The amount of fluoroscopy saul e used during this procedure was 0.3 minutes. COMPARISON: CT dated 03/28/2023 FINDINGS: Left internal ureteral stent with loops formed over the expected location of the left renal pelvis an d in the bladder. There is small amount of contrast material within the bladder likely related to the earlier contrast-enhanced CT. Previous noted distal left ureteral stones are not visualized and may been extracted. Correlate with procedure note for further detail. IMPRESSION: 1. Placement of a left intrarenal stent which is in expected position. Reviewed, dictated and finalized at location A.
--- NOTE | ~2023-03-28 | XR_ITS ---
EXAMINATION: XR chest 1V portable DATE: 03/28/2023 07:51 INDICATION: Fever. Weakness. TECHNIQUE: A single frontal view of the chest was obtained. COMPARISON: Chest single view 03/15/2023, CT abdomen and pelvis 03/14/2023 FINDINGS: There is mild atelectasis in the lower lung zones. No pleural effusion or pneumothorax. The heart size is normal. IMPRESSION: 1. Mild atelectasis in the lower lung zones. Reviewed, dictated and finalized at location A.
--- NOTE | 2023-03-28 07:26 | ECG_ITS ---
Measurements Intervals [place] Rate: 92 P: -5 [place]: 180 QRS: 54 QRSD: 160 T: 11 QT: 400 QTc: 495 Interpretive Statements SINUS RHYTHM FREQUENT ATRIAL PREMATURE COMPLEXES RIGHT BUNDLE BRANCH BLOCK BASELINE ARTIFACT- II, III, AVF, V3-V4 ABNORMAL ECG COMPARED TO ECG 03/15/2023 07:38:43 NO SIGNIFICANT CHANGES Electronically Signed On 03-28-2023 8:19:31 CDT by Francisco Pérez D.O.
--- NOTE | 2023-03-28 07:34 | ED.MALEGU ---
HPI - Male Genitourinary General Chief complaint: Urogenital-Male Stated complaint: uti, fever Time Seen by Provider: 03/28/23 07:04 History of Present Illness HPI Narrative: This is a 77-year-old male, with history of recurrent UTIs (recently discharged from this facility 12 days ago), who is brought in by EMS for fevers and burning with urination. The patient states the burning began yesterday. He has no other complaints at this time. EMS reports the patient's blood pressure was 122/50 with heart rate 100. Related Data Home Medications Medication Instructions Recorded Confirmed cholecalciferol (vitamin D3) 125 250 mcg PO DAILY 11/18/22 03/28/23 mcg (5,000 unit) tablet (Vitamin D3) peg 400-propylene glycol 0.4 %-0.3 1 drp EACH EYE QID PRN Dry Eye(S) 11/19/22 03/28/23 % eye drops (Systane Ultra) tamsulosin 0.4 mg capsule 0.8 mg PO HS 02/16/23 03/28/23 folic acid 1 mg tablet 1 mg PO BID 03/14/23 03/28/23 potassium citrate 15 mEq (1,620 15 meq PO BID 03/14/23 03/28/23 mg) tablet,extended release travoprost 0.004 % eye drops 1 drp EACH EYE HS 03/14/23 03/28/23 brimonidine 0.2 %-timolol 0.5 % 1 drp EACH EYE Q12H 03/28/23 03/28/23 eye drops Allergies Allergy/AdvReac Type Severity Reaction Status Date / Time No Known Drug Allergies Allergy Mild unknown Verified 03/28/23 07:41 Review of Systems Review of Systems: CONSTITUTIONAL: Denies fever, chills, or sweats. CARDIOVASCULAR: Denies chest pain, palpitations, or edema. RESPIRATORY: Denies cough or dyspnea. GASTROINTESTINAL: Denies abdominal pain, nausea, vomiting, or diarrhea. GENITOURINARY: Dysuria denies hematuria. SKIN: Denies rash or itching. MUSCULOSKELETAL: Denies back pain, joint pain, or myalgia. NEUROLOGIC: Denies headache, numbness, dizziness, or weakness. PSYCHIATRIC: Denies anxiety or depression. FOR[facility]LY [facility] Past Medical History Medical History Bacteremia (~10/2019) UTI with bacteremia, CNSS not saprophyticus. Khoury palsy (~2018) Chronic venous insufficiency of lower extremity COVID-19 Essential hypertension Glaucoma Gout Hepatic steatosis History of atrial fibrillation (~08/2022) due to sepsis History of pulmonary embolism (~02/2021) Hypogonadism in male Uses testosterone gel. Kidney stones Left ureteral stone Osteoarthritis Overactive bladder Paroxysmal atrial fibrillation (~10/2019) associated with sepsis Pre-diabetes Hemoglobin A1c was 6.3% in April 2019. Prostate cancer Pulmonary embolism 02/[address] scan performed for staging of prostate cancer bilateral lower lobe and middle lobe pulmonary embolism Retinal vein occlusion of left eye Rheumatoid arthritis with rheumatoid factor of multiple sites without organ or systems involvement Transient ischemic attack (~2014) Ureteral stone with hydronephrosis (~10/2022) Ureterolithiasis Vitamin D deficiency Surgical History Surgical History H/O colonoscopy with polypectomy History of appendectomy (~1957) History of cystoscopy (~05/2022) cystoscopy, left retrograde pyelography and left ureteral stent placement History of left cataract surgery (~2009) History of ureter stent (~10/2022) cystoscopy, left retrograde pyelogram and placement of left 6fr variable length stent Hx of lithotripsy (~04/2022) Left ESWL Family History Family History Father Diabetes mellitus Acute myocardial infarction Heart disease Hypertension Social History Social History Social History: The patient lives in [place] with his . They have 3 sons and 1 daughter. He smoked up to 3 packs of cigarettes per day and quit 1995. No alcohol or drug abuse. 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
[2023-03-28] MEDS: SODIUM CHLORIDE 0.9% IV 1,000 ML 999 ML IV CONT ×2 (07:41→09:46)
[2023-03-28 07:49] LABS: Basophils Absolute Auto 0.1 K/mm3 (0.0-0.1); Basophils Percent Auto 0.3 % (0.2-1.2); Eosinophils Absolute Auto 0.1 K/mm3 (0-0.3); Eosinophils Percent Auto 0.4 % (0-4.4); Hematocrit 39.8 % (42.0-52.0); Hemoglobin 13.4 g/dL (14.0-18.0); Immature Granulocyte Absolute 0.12 K/mm3 (0.00-0.031); Immature Granulocyte Percent A 0.7 % (0-0.5); Lymphocytes Absolute Auto 0.39 K/mm3 (0.9-3.2); Lymphocytes Percent Auto 2.1 % (18.3-44.2); Mean Corpuscular HGB Conc 33.7 g/dl (32-36); Mean Corpuscular Hemoglobin 34.7 pg (26-34); Mean Corpuscular Volume 103.1 fl (80-100); Mean Platelet Volume 9.1 fl (7.4-10.4); Monocytes Absolute Auto 0.9 K/mm3 (0.1-0.6); Monocytes Percent Auto 4.7 % (2.6-8.5); Neutrophils Absolute Auto 16.8 K/mm3 (1.3-6.7); Neutrophils Percent Auto 91.8 % (45.5-73.1); Platelet Count Result 253 k/mm3 (150-375); Red Blood Count 3.86 M/mm3 (4.6-6.20); Red Cell Distribution Width 12.2 % (11.5-14.5); White Blood Count 18.3 K/mm3 (4.5-10.0)
[2023-03-28 07:56] LABS: Alanine Aminotransferase 43 U/L (6-50); Albumin Level 4.2 g/dL (3.5-5.1); Alkaline Phosphatase 65 U/L (38-126); Anion Gap 10 mmol/L (8-16); Aspartate Amino Transferase 49 U/L (17-59); Bilirubin,Total 0.9 mg/dL (0.2-1.3); Blood Urea Nitrogen 29 mg/dL (9-20); Calcium 8.8 mg/dL (8.4-10.2); Carbon Dioxide 21 mmol/L (22-30); Chloride 102 mmol/L (98-107); Estimated CRCL calculation 37 ml/min; Estimated Glomerular Filt Rate 37; Glucose 146 mg/dL (65-110); Magnesium 1.5 mg/dL (1.6-2.3); Potassium 5.2 mmol/L (3.4-5.0); Sodium 133 mmol/L (137-145)
[2023-03-28 08:08] LABS: Troponin I < 0.012 ng/mL (0.000-0.034)
[2023-03-28 10:31] LABS: Appearance Urine Turbid (Clear); Bacteria Urine 4+ /hpf; Bilirubin Urine Negative (Negative); Blood Urine 2+ (Negative); Color Urine Yellow (Yellow); Glucose Urine UA Negative (Negative); Ketones Urine Negative (Negative); Leukocyte Esterase Ur 3+ LEU/UL (Negative); Nitrate Urine Positive (Negative); Protein Urine 2+ mg/dL (Negative); Specific Grav Ur 1.027 (1.001-1.035); Squamous Epithelial Cell Urine Occasional /hpf (Few); Urobilinogen Urine 0.2 mg/dL (<2.0); WBC Urine >100 /hpf; pH Urine 5.5 (5.0-9.0)
--- NOTE | 2023-03-28 10:36 | WPDURCON ---
Assessment and Plan Assessment and plan (1) Hydronephrosis, left: Code(s): N13.30 - Unspecified hydronephrosis Status: Acute (2) Acute UTI: Code(s): N39.0 - Urinary tract infection, site not specified Status: Acute (3) Left ureteral calculus: Code(s): N20.1 - Calculus of ureter Status: Acute Assessment and Plan: Cystoscopy, left ureteral stent placement Urology Consult Note HPI Date Seen: 03/28/23 Requesting Physician: Katelyn Fatima MD Primary Care Provider: Campbell Cho MD Consult Narrative Narrative: Shant Zaman is a 77 year old male, well known to us, recent URS with extraction large left ureteral stones. Pt. has stent removed ~2 weeks ago. Subsequent urine culture for irritable voiding was neg. Presents to ER with reports of fever and irritable voiding. Imaging demonstrated obstructing 3mm left distal stone and labs suggest UTI. Review of Systems Review of Systems: All systems reviewed & are unremarkable except as noted in HPI and below PMFSH Past Medical History Medical History Bacteremia (~10/2019) UTI with bacteremia, CNSS not saprophyticus. Khoury palsy (~2018) Chronic venous insufficiency of lower extremity COVID-19 Essential hypertension Glaucoma Gout Hepatic steatosis History of atrial fibrillation (~08/2022) due to sepsis History of pulmonary embolism (~02/2021) Hypogonadism in male Uses testosterone gel. Kidney stones Left ureteral stone Osteoarthritis Overactive bladder Paroxysmal atrial fibrillation (~10/2019) associated with sepsis Pre-diabetes Hemoglobin A1c was 6.3% in April 2019. Prostate cancer Pulmonary embolism 02/[address] scan performed for staging of prostate cancer bilateral lower lobe and middle lobe pulmonary embolism Retinal vein occlusion of left eye Rheumatoid arthritis with rheumatoid factor of multiple sites without organ or systems involvement Transient ischemic attack (~2014) Ureteral stone with hydronephrosis (~10/2022) Ureterolithiasis Vitamin D deficiency Surgical History Surgical History H/O colonoscopy with polypectomy History of appendectomy (~1957) History of cystoscopy (~05/2022) cystoscopy, left retrograde pyelography and left ureteral stent placement History of left cataract surgery (~2009) History of ureter stent (~10/2022) cystoscopy, left retrograde pyelogram and placement of left 6fr variable length stent Hx of lithotripsy (~04/2022) Left ESWL Family History Family History Father Diabetes mellitus Acute myocardial infarction Heart disease Hypertension Social History Social History Social History: The patient lives in [place] with his . They have 3 sons and 1 daughter. He smoked up to 3 packs of cigarettes per day and quit 1995. No alcohol or drug abuse. 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 [employer] Code status: Full code Surrogate decision maker: Vandana () Smoking packs per day: 1 Smoking cigarettes per day: 20.0 Years smoked: 5 Smoking pack-years: 5.00 Smoking status: Former smoker Second hand tobacco smoke exposure: No Additional smoking assessment comments: pt states he started smoking at age 20 Alcohol intake: never Alcohol use details: occasional glass of wine Substance use: never Substance use type: does not use Lack of Transportation: No Lack of Food: Never True Current Housing: I Have Housing Concerned About Future Housing: No Difficulty Paying Gas/Electric Bills: No Difficulty Paying for Meds: No Currently Unemployed: No Education: Associate Degree Difficulty w/ Childcare or Family Care: No Living arrangements: with family Additional living arr
[2023-03-28 10:38] LABS: Add Urine Microscopic? YES
--- NOTE | 2023-03-28 10:39 | WPDHPUPDATE1 ---
History and Physical Update Update Date/Time: 03/28/23 10:39 History and Physical has been reviewed, including an updated exam of the patient. There are NO changes in the patient's condition. Risks, benefits, and alternatives have been discussed and questions answered. Patient agrees to proceed with procedure.
[2023-03-28 10:43] LABS: Reflex Lactic Acid Yes or No Add Lactic
[2023-03-28] MEDS: LACTATED RINGERS 1,000 ML 30 ML IV CONT (11:00)
--- NOTE | 2023-03-28 11:04 | WPDANESEPPF ---
Anes - Initial Pre Proc Eval Procedure: Operation Date: 03/28/23 10:45 Proposed Procedures p Cystoscopy, Left Ureteral Stent Placement - Katelyn Fatima MD Date/Time: 03/28/23 11:04 Surgeon: Katelyn Fatima MD Pre Op Diagnosis: uti, fever Patient Data Age: 77 Gender: M Height: 1.78 m Weight: 104 kg Last Vital Signs Temp 36.4 C L 03/28/23 07:08 Pulse 92 03/28/23 10:40 Resp 19 03/28/23 10:40 BP 121/50 L 03/28/23 10:40 Pulse Ox 96 03/28/23 10:40 O2 Del Method Room Air 03/28/23 07:08 Allergies Allergy/AdvReac Type Severity Reaction Status Date / Time No Known Drug Allergies Allergy Mild unknown Verified 03/28/23 07:41 Home Medications Medication Instructions Recorded Confirmed Type metoprolol tartrate 50 mg tablet 50 mg PO BID #180 tabs 09/14/22 03/27/23 Rx brimonidine 0.2 % eye drops 1 drp EACH EYE BID #30 mL 09/22/22 03/27/23 Rx dorzolamide 2 % eye drops (Trusopt) 1 drp LEFT EYE TID #30 mL 09/22/22 03/27/23 Rx timolol maleate 0.5 % eye drops 1 drp EACH EYE Q12HR #30 mL 09/22/22 03/27/23 Rx cholecalciferol (vitamin D3) 125 250 mcg PO DAILY 11/18/22 03/27/23 History mcg (5,000 unit) tablet (Vitamin D3) peg 400-propylene glycol 0.4 %-0.3 1 drp EACH EYE QID PRN Dry Eye(S) 11/19/22 03/27/23 History % eye drops (Systane Ultra) oxybutynin chloride 10 mg 10 mg PO DAILY #90 tabs 12/20/22 03/27/23 Rx tablet,extended release 24 hr lisinopril 10 mg tablet 10 mg PO DAILY #90 tabs 01/17/23 03/27/23 Rx tamsulosin 0.4 mg capsule 0.8 mg PO HS 02/16/23 03/27/23 History hydrocodone 5 mg-acetaminophen 325 1 - 2 tablet PO Q6H PRN pain #20 02/22/23 03/27/23 Rx mg tablet tabs folic acid 1 mg tablet 1 mg PO BID 03/14/23 03/27/23 History potassium citrate 15 mEq (1,620 15 meq PO BID 03/14/23 03/27/23 History mg) tablet,extended release travoprost 0.004 % eye drops 1 drp EACH EYE HS 03/14/23 03/27/23 History cefdinir 300 mg capsule 300 mg PO Q12H #10 caps 03/16/23 03/27/23 Rx hydroxychloroquine 200 mg tablet 400 mg PO DAILY #180 tabs 03/27/23 03/27/23 Rx Laboratory Tests 03/28/23 03/28/23 07:37 10:12 WBC 18.3 H K/mm3 (4.5-10.0) RBC 3.86 L M/mm3 (4.6-6.20) Hgb 13.4 L g/dL (14.0-18.0) Hct 39.8 L % (42.0-52.0) MCV 103.1 H fl (80-100) MCH 34.7 H pg (26-34) MCHC 33.7 g/dl (32-36) RDW 12.2 % (11.5-14.5) Plt Count 253 k/mm3 (150-375) MPV 9.1 fl (7.4-10.4) Immature Gran % (Auto) 0.7 H % (0-0.5) Neut % (Auto) 91.8 H % (45.5-73.1) Lymph % (Auto) 2.1 L % (18.3-44.2) [place] % (Auto) 4.7 % (2.6-8.5) Eos % (Auto) 0.4 % (0-4.4) Baso % (Auto) 0.3 % (0.2-1.2) Lymph # (Auto) 0.39 L K/mm3 (0.9-3.2) [place] # (Auto) 0.9 H K/mm3 (0.1-0.6) Eos # (Auto) 0.1 K/mm3 (0-0.3) Baso # (Auto) 0.1 K/mm3 (0.0-0.1) Abs Immat Gran (auto) 0.12 H K/mm3 (0.00-0.031) Absolute Neuts (auto) 16.8 H K/mm3 (1.3-6.7) Absolute Nucleated RBC 0.0 K/mm3 (0.0-0.012) Nucleated RBC % 0.0 % (0.0-0.2) Sodium 133 L mmol/L (137-145) Potassium 5.2 H mmol/L (3.4-5.0) Chloride 102 mmol/L (98-107) Carbon Dioxide 21 L mmol/L (22-30) Anion Gap 10 mmol/L (8-16) BUN 29 H mg/dL (9-20) Creatinine 1.80 H mg/dL (0.7-1.3) Estim Creat Clear Calc 37 ml/min Estimated GFR 37 L (59 - ) Glucose 146 H mg/dL (65-110) Lactic Acid 3.0 H mmol/L (0.7-2.0) Calcium 8.8 mg/dL (8.4-10.2) Magnesium 1.5 L mg/dL (1.6-2.3) Total Bilirubin 0.9 mg/dL (0.2-1.3) AST 49 U/L (17-59) ALT 43 U/L (6-50) Alkaline Phosphatase 65 U/L (38-126) Troponin I < 0.012 ng/mL (0.000-0.034) Total Protein 8.0 g/dL (6.3-8.2) Albumin 4.2 g/dL (3.5-5.1) Urine Color Yellow (Yellow) Urine Appeara
[2023-03-28 11:15] LABS: Toxigenic C. Diff NEGATIVE (NEGATIVE)
--- NOTE | 2023-03-28 11:32 | P.OP_ITS ---
Procedure Note - Detailed Date of Procedure 03/28/23 Pre-op Diagnosis Left ureteral stone, left pyelonephritis Post-op Diagnosis Same Procedure Performed Cystoscopy, left ureteroscopy with stone extraction and left ureteral stent placement Surgeon Pablo Walker MD Anesthesia General Description of Procedure PatIent is brought the op suite was prepped draped in routine sterile fashion while in dorsal lithotomy position. 2% xylocaine jelly was introduced intraurethrally and general anesthesia was administered per the anesthesia department. Cystoscopy is undertaken with a 19 F rigid cystoscope. He has no urethral stricture but a 2.5 cm prostatic urethra. The bladder was trabeculated. There was no intravesical foreign body or neoplasm. A 0.035 in glidewire was advanced into the left renal pelvis with ease. I can feel the stone in the very distal most portion of his ureter so I opted to proceed with simple left ureteroscopy and extraction. After dilating the distal ureter with an 8 F 10 F dilator I did a quick left ureteroscopy with a semi-rigid scope and extracted the 3 mm stone with ease using a 1.9 F disposable stone basket. A 4.8 F variable length stent was positioned with the proximal coil in the renal pelvis and distal coil in the bladder. Scopes and wires removed and he was ta desi the recovery room in good condition. Drains Yes Pathology Yes Complications No immediate complications Condition Stable Disposition PACU
[2023-03-28 12:14] LABS: Lactic Acid 3.1 mmol/L (0.7-2.0)
--- NOTE | 2023-03-28 12:36 | SUR.PHASEI ---
1236: Dr. Love at bedside. assessed patient. new orders received for metoprolol ivp.
[2023-03-28] MEDS: METOPROLOL TARTRATE INJ 5 MG/5 ML VIAL IV PUSH (12:37)
[2023-03-28] MEDS: ACETAMINOPHEN 500 MG TABLET 1000 MG PO (12:47)
--- NOTE | 2023-03-28 13:26 | ADMGEN ---
This patient, Shant Zaman, was admitted to IMU Room 205-01. Patient/family oriented to hospital policies and general routines including ID bracelet, bed and alarms, visiting hours, pain management, procedures, bathroom and other care routines, personal items, smoking policy, room service/diet, and visiting hours. Information on how to activate the Rapid Response Team has been discussed. Patient/Family are encouraged to report perceived risks to care and to ask questions if they do not understand what they are told or what they should do.
[2023-03-28] MEDS: ACETAMINOPHEN 325 MG SUPPOSITORY RECTAL (15:03)
[2023-03-28] MEDS: LACTATED RINGERS 1,000 ML 125 ML IV CONT (15:05)
[2023-03-28] MEDS: MORPHINE SULFATE (*CRX) 2 MG/ML INJ IV PUSH (15:05)
--- NOTE | 2023-03-28 15:14 | PC.NURSE ---
Leatha RETAIL SELLING SPECIALIST made aware of temp 102 gave order for x1 dose of Tylenol supp and x1 dose of morphine 2 mg for pain and restlessness, pt has IVF going LR at 125 ml/hr, will try on RA as ordered.
[2023-03-28 16:42] LABS: Lactic Acid Reflex 2.6 mmol/L (0.7-2.0)
[2023-03-29] VITALS (18 sets, daily range): BP systolic 105–137; BP diastolic 44–64; PULSE 66–113; RESP 12–20; TEMP 36–37.6; O2SAT 94–100
--- NOTE | 2023-03-29 00:21 | PM.IMHP ---
H&P: HPI History of Present Illness Date/Time: 03/29/23 00:21 Chief Complaint: Burning with Urination Narrative: 77 y/o M with PMH of recurrent UTIs, recent cystoscopy and left ureteroscopy with laser lithotripsy stone extraction on 02/22/23, and sepsis r/t UTI (2019) presents here with dysuria and fever. Additional hx of PE (2020), OA, A-Fib, Gout, HTN, Hypogonadism, RA, TIA (2014), and Prostate Cx (s/p radiation, 2021). Patient presented to the ED early this morning with dysuria, frequency, and fevers that began yesterday. Reports mild confusion. Denies changes in urine color or odor. Denies abdominal pain, flank pain, or suprapubic tenderness. Patient seen by Urology, taken to surgery for stone (3 mm) extraction and stent placement. Post-op patient experienced chills and rigors. Reports difficulty remembering events, currently A/Ox4. Review of Systems Review of Systems: All systems reviewed & are unremarkable except as noted in HPI and below PMFSH Past Medical History Medical History Bacteremia (~10/2019) UTI with bacteremia, CNSS not saprophyticus. Khoury palsy (~2018) Chronic venous insufficiency of lower extremity COVID-19 Essential hypertension Glaucoma Gout Hepatic steatosis History of atrial fibrillation (~08/2022) due to sepsis History of pulmonary embolism (~02/2021) Hypogonadism in male Uses testosterone gel. Kidney stones Left ureteral stone Osteoarthritis Overactive bladder Paroxysmal atrial fibrillation (~10/2019) associated with sepsis Pre-diabetes Hemoglobin A1c was 6.3% in April 2019. Prostate cancer Pulmonary embolism 02/[address] scan performed for staging of prostate cancer bilateral lower lobe and middle lobe pulmonary embolism Retinal vein occlusion of left eye Rheumatoid arthritis with rheumatoid factor of multiple sites without organ or systems involvement Transient ischemic attack (~2014) Ureteral stone with hydronephrosis (~10/2022) Ureterolithiasis Vitamin D deficiency Surgical History Surgical History H/O colonoscopy with polypectomy History of appendectomy (~1957) History of cystoscopy (~05/2022) cystoscopy, left retrograde pyelography and left ureteral stent placement History of left cataract surgery (~2009) History of ureter stent (~10/2022) cystoscopy, left retrograde pyelogram and placement of left 6fr variable length stent Hx of lithotripsy (~04/2022) Left ESWL Family History Family History Father Diabetes mellitus Acute myocardial infarction Heart disease Hypertension Social History Social History Social History: The patient lives in [place] with his . They have 3 sons and 1 daughter. He smoked up to 3 packs of cigarettes per day and quit 1995. No alcohol or drug abuse. 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 [employer] Code status: Full code Surrogate decision maker: Vandana () Smoking packs per day: 2 Smoking cigarettes per day: 40.0 Years smoked: 35 Smoking pack-years: 70.00 Smoking status: Former smoker Second hand tobacco smoke exposure: No Additional smoking assessment comments: pt states he started smoking at age 20 Alcohol intake: never Alcohol use details: occasional glass of wine Substance use: never Substance use type: does not use Lack of Transportation: No Lack of Food: Never True Current Housing: I Have Housing Concerned About Future Housing: No Difficulty Paying Gas/Electric Bills: No Difficulty Paying for Meds: No Currently Unemployed: No Education: High School Diploma/GED Difficulty w/ Childcare or Family Care: No Living arrangements: with family Additional living arrangements comments: - VANDANA Gender identity (if verbalized by the patient):
[2023-03-29 04:53] LABS: Hematocrit 33.8 % (42.0-52.0); Hemoglobin 11.3 g/dL (14.0-18.0); Mean Corpuscular HGB Conc 33.4 g/dl (32-36); Mean Corpuscular Hemoglobin 35.1 pg (26-34); Mean Platelet Volume 8.9 fl (7.4-10.4); Platelet Count Result 192 k/mm3 (150-375); Red Blood Count 3.22 M/mm3 (4.6-6.20); Red Cell Distribution Width 12.5 % (11.5-14.5); White Blood Count 19.5 K/mm3 (4.5-10.0)
[2023-03-29 05:08] LABS: Lactic Acid Reflex 1.6 mmol/L (0.7-2.0)
[2023-03-29 05:10] LABS: Anion Gap 7 mmol/L (8-16); Blood Urea Nitrogen 25 mg/dL (9-20); Calcium 8.4 mg/dL (8.4-10.2); Carbon Dioxide 22 mmol/L (22-30); Chloride 106 mmol/L (98-107); Estimated CRCL calculation 43 ml/min; Estimated Glomerular Filt Rate 42; Glucose 134 mg/dL (65-110); Potassium 4.7 mmol/L (3.4-5.0); Sodium 135 mmol/L (137-145)
[2023-03-29 05:18] LABS: Band Neutrophils Percent 5 % (0-6); Lymphocytes Absolute Manual 0.19 K/mm3 (1.1-4.5); Monocytes Absolute Manual 0.58 K/mm3 (0.1-0.90); Monocytes Percent Manual 3 % (3-9); Neutrophils Absolute Manual 18.72 K/mm3 (1.3-6.7); Neutrophils Percent Manual 91 % (46-73); Platelet Estimate Adequate (Adequate); Total Cells Counted 100
[2023-03-29 05:19] LABS: Anisocytosis 1+ (NORMAL); Burr Cells 2+ (NORMAL); Schistocytes None Seen (NORMAL)
[2023-03-29] MEDS: MAGNESIUM SULF 1 GM/D5W 100 ML 1 GM/100 ML BAG IVPB (05:30)
[2023-03-29] MEDS: PIPERACILLIN/TAZ 2.25G/NS 50ML 2.25 GM/50 ML BAG IVPB (05:30)
--- NOTE | 2023-03-29 07:11 | WPDUROPN2 ---
Progress Note: A&P Assessment and Plan (1) Acute pyelonephritis: Code(s): N10 - Acute pyelonephritis Status: Acute Assessment and Plan: Tolerating left ureteral stent well. Afebrile and BP improved. Continue Ceftriaxone pending cultures. (2) Urinary tract obstruction by kidney stone: Code(s): N20.0 - Calculus of kidney; N13.8 - Other obstructive and reflux uropathy Status: Acute Subjective Subjective Date/Time Seen: 03/29/23 07:11 Interval history: Comfortable, no c/o pain, tolerating diet Review of Systems Cardiovascular: Cardiovascular: Denies chest pain, Denies lightheadedness, Denies palpitations and Denies dyspnea Respiratory: Respiratory: Denies dyspnea Gastrointestinal: Gastrointestinal: Denies diarrhea, Denies nausea and Denies vomiting Genitourinary: Genitourinary: Denies hematuria and Denies dysuria Endocrine: Endocrine: Denies palpitations Exam Const: General: no acute distress Resp: Effort & Inspection: normal respiratory effort GI: Inspection: non-distended GI Palp: No abdominal tenderness and No Guarding due to palpation present (GI) Auscultation: normal bowel sounds Objective Data Vital Signs Vital Signs: Vital Signs - 24 hr 03/28/23 08:34 03/28/23 07:17 03/28/23 08:16 Temperature Pulse Rate 96 97 82 Respiratory Rate 29 H 31 H 32 H Blood Pressure 112/52 L 100/43 L 107/55 L Pulse Oximetry 97 87 L 94 Oxygen Delivery Oxygen Flow Rate 03/28/23 08:17 03/28/23 08:38 03/28/23 08:45 Temperature Pulse Rate 81 93 84 Respiratory Rate 22 H 24 H 32 H Blood Pressure Pulse Oximetry 97 99 96 Oxygen Delivery Oxygen Flow Rate 03/28/23 09:11 03/28/23 10:40 03/28/23 11:00 Temperature 98.8 F Pulse Rate 92 66 Respiratory Rate 19 18 Blood Pressure 121/50 L 132/58 L Pulse Oximetry 89 L 96 98 Oxygen Delivery Room Air Oxygen Flow Rate 03/28/23 11:40 03/28/23 11:55 03/28/23 12:00 Temperature 98.0 F Pulse Rate 88 96 96 Respiratory Rate 18 19 20 Blood Pressure 109/58 L 96/51 L 106/87 Pulse Oximetry 100 98 98 Oxygen Delivery Simple Face Mask Room Air Room Air Oxygen Flow Rate 6 03/28/23 12:15 03/28/23 12:30 03/28/23 12:39 Temperature 98.7 F 99.1 F Pulse Rate 90 145 H 118 H Respiratory Rate 22 H 19 20 Blood Pressure 133/94 H 222/183 H 186/83 H Pulse Oximetry 98 98 94 Oxygen Delivery Room Air Room Air Room Air Oxygen Flow Rate 03/28/23 12:37 03/28/23 12:45 03/28/23 13:00 Temperature 99.5 F Pulse Rate 144 H 104 H 108 H Respiratory Rate 24 H 26 H Blood Pressure 214/100 H 205/83 H Pulse Oximetry 89 L 95 Oxygen Delivery Room Air Nasal Cannula Oxygen Flow Rate 2 03/28/23 13:15 03/28/23 12:00 03/28/23 14:00 Temperature 102.1 F H Pulse Rate 102 H 104 H 107 H Respiratory Rate 26 H 18 Blood Pressure 161/80 H 139/94 H Pulse Oximetry 97 96 Oxygen Delivery Nasal Cannula Oxygen Flow Rate 2 03/28/23 15:03 03/28/23 16:00 03/28/23 16:00 Temperature 101 F H 98.5 F Pulse Rate 84 Respiratory Rate 18 Blood Pressure 96/68 L Pulse Oximetry 97 96 Oxygen Delivery Nasal Cannula Oxygen Flow Rate 2 03/28/23 16:00 03/28/23 18:00 03/28/23 19:55 Temperature 97.2 F L Pulse Rate 108 H 101 H 111 H Respiratory Rate 18 Blood Pressure 107/63 Pulse Oximetry 94 Oxygen Delivery Oxygen Flow Rate 03/28/23 20:00 03/28/23 20:00 03/28/23 20:00 Temperature Pulse Rate 87 87 88 Respiratory Rate 18 Blood Pressure Pulse Oximetry 94 Oxygen Delivery Nasal Cannula Oxygen Flow Rate 2 03/28/23 21:27 03/29/23 00:00 03/29/23 00:00 Temperature 96.8 F L Pulse Rate 74 79 85 Respiratory Rate 18 Blood Pressure 106/60 Pulse Oximetry 97 Oxygen Delivery Oxygen Flow Rate 03/29/23 00:00 03/29/23 04:00 03/29/23 02:00 Temperature 97.5 F L Pulse Rate 85 77 78 Respiratory Rate 18 18 Blood Pressure 110/64 Pulse Oximetry 97 96 Oxyge
[2023-03-29 08:22] LABS: Magnesium 1.8 mg/dL (1.6-2.3)
[2023-03-29] MEDS: HYDROXYCHLOROQUINE SULFATE 200 MG TABLET 400 MG PO (08:29)
[2023-03-29] MEDS: DORZOLAMIDE HCL 2% OPHTH DROPS 1 DROP LEFT EYE ×3 (08:30→17:35)
[2023-03-29] MEDS: FOLIC ACID 1 MG TABLET PO ×2 (08:30→17:35)
[2023-03-29] MEDS: CHOLECALCIFEROL 1,000 UNITS TABLET 10000 UNITS PO (08:30)
[2023-03-29] MEDS: lisinopriL 10 MG TABLET PO (08:31)
[2023-03-29] MEDS: oxyBUTYnin CHLORIDE XL 5 MG TAB.ER.24 10 MG PO (08:31)
[2023-03-29] MEDS: METOPROLOL TARTRATE 50 MG TAB PO ×2 (08:31→20:04)
--- NOTE | 2023-03-29 08:35 | PM.IMPN ---
Progress Note: A&P Assessment and Plan (1) Acute pyelonephritis: Code(s): N10 - Acute pyelonephritis Status: Acute Assessment and Plan: Patient presented with dysuria/fevers. CT showed concerns for pyelonephritis with 3 mm obstructing stone. Urology consulted, surgery today for stone removal and stent placement. Blood cultures positive Gram-negative bacteremia, continue Rocephin 2 g daily, follow sensitivities, repeat cultures ordered and pending Follow urine culture IV fluids, supportive care (2) Urinary tract obstruction by kidney stone: Code(s): N20.0 - Calculus of kidney; N13.8 - Other obstructive and reflux uropathy Status: Acute Assessment and Plan: Urology consulted and surgery done 03/28 - 3 mm stone removed Improving, monitor Plan Chronic Conditions -RA: hold hydroxychloroquine while blood cx positive, cont folic acid. -HTN: hold lisinopril until creat normalizes, cont metoprolol. monitor BP. -Glaucoma: continue dorzolamide 2%. Held: brimonidine-timolol drops, systane ultra drops, and travoprost due to non-formulary. If patient has medications at bedside, may take home med. Diet: Heart Healthy DVT Prophylaxis: SCDs, Lovenox held due to recent procedure Code Status: Full Code Subjective Date/time seen: 03/29/23 08:35 Interval history: 77 y/o M with PMH of recurrent UTIs, recent cystoscopy and left ureteroscopy with laser lithotripsy stone extraction on 02/22/23, and sepsis r/t UTI (2019) presents here with dysuria and fever is being treated for UTI with sepsis and bacteremia. No overnight events noted. No chest pain or shortness of breath. No nausea, vomiting or diarrhea. No fevers or chills. Review of Systems Review of Systems: 12 point review of systems was assessed and was negative except as noted in the HPI Exam Narrative: General: No acute distress, alert and oriented per baseline HEENT: Atraumatic, normocephalic, mucous membranes moist CV: Regular rate and rhythm, S1, S2 Lungs: Clear to auscultation bilaterally, no rales or crackles noted, no wheezes, good air entry Abdomen: Soft, nontender, nondistended Extremities: Normal to inspection Skin: No rashes noted, no lesions or wounds seen Psych: Euthymic, normal affect Objective Data Vital Signs Vital Signs: Vital Signs - 24 hr 03/28/23 08:38 03/28/23 08:45 03/28/23 09:11 Temperature Pulse Rate 93 84 Respiratory Rate 24 H 32 H Blood Pressure Pulse Oximetry 99 96 89 L Oxygen Delivery Oxygen Flow Rate 03/28/23 10:40 03/28/23 11:00 03/28/23 11:40 Temperature 98.8 F 98.0 F Pulse Rate 92 66 88 Respiratory Rate 19 18 18 Blood Pressure 121/50 L 132/58 L 109/58 L Pulse Oximetry 96 98 100 Oxygen Delivery Room Air Simple Face Mask Oxygen Flow Rate 6 03/28/23 11:55 03/28/23 12:00 03/28/23 12:15 Temperature 98.7 F Pulse Rate 96 96 90 Respiratory Rate 19 20 22 H Blood Pressure 96/51 L 106/87 133/94 H Pulse Oximetry 98 98 98 Oxygen Delivery Room Air Room Air Room Air Oxygen Flow Rate 03/28/23 12:30 03/28/23 12:39 03/28/23 12:37 Temperature 99.1 F Pulse Rate 145 H 118 H 144 H Respiratory Rate 19 20 Blood Pressure 222/183 H 186/83 H Pulse Oximetry 98 94 Oxygen Delivery Room Air Room Air Oxygen Flow Rate 03/28/23 12:45 03/28/23 13:00 03/28/23 13:15 Temperature 99.5 F Pulse Rate 104 H 108 H 102 H Respiratory Rate 24 H 26 H 26 H Blood Pressure 214/100 H 205/83 H 161/80 H Pulse Oximetry 89 L 95 97 Oxygen Delivery Room Air Nasal Cannula Nasal Cannula Oxygen Flow Rate 2 2 03/28/23 12:00 03/28/23 14:00 03/28/23 15:03 Temperature 102.1 F H 101 F H Pulse Rate 104 H 107 H Respiratory Rate 18 Blood Pressure 139/94 H Pulse Oximetry 96 Oxygen Delivery Oxygen Flow Rate 03/28/23 16:00 03/28/23 16:00 03/28/23 16:00 Temperature 98.5 F Pulse Rate 84 108 H Respiratory Rate 18 Blood Pressure 96/68 L Pul
[2023-03-29] MEDS: cefTRIAXone 2 GM/NS 100 ML 2 GM/100 ML BAG IVPB (10:38)
--- NOTE | 2023-03-29 12:52 | WPDANESPN ---
Anes - Prog Note Post-Op Date/Time: 03/29/23 12:52 Cardiovascular status: normal Respiratory status: normal Airway patency: baseline Mental status: baseline Post-Op hydration status: normal Vital Signs: Last Vital Signs Temp 37.6 C 03/29/23 12:00 Pulse 78 03/29/23 12:00 Resp 12 03/29/23 12:00 BP 137/55 L 03/29/23 12:00 Pulse Ox 100 03/29/23 12:00 O2 Del Method Room Air 03/29/23 08:00 O2 Flow Rate 2 03/28/23 20:00 Pain Score (VAS): 0/10 I/O: Intake & Output 03/28/23 03/29/23 03/29/23 23:59 07:59 15:59 Intake Total 420 250 120 Output Total 1800 Balance 420 -1550 120 Laboratory Tests 03/29/23 04:43 03/29/23 04:43 03/28/23 03/29/23 03/29/23 16:16 04:31 04:43 WBC 19.5 H RBC 3.22 L Hgb 11.3 L Hct 33.8 L MCV 105.0 H MCH 35.1 H MCHC 33.4 RDW 12.5 Plt Count 192 MPV 8.9 Immature Gran % (Auto) Not Reportable Neut % (Auto) Not Reportable Lymph % (Auto) Not Reportable [place] % (Auto) Not Reportable Eos % (Auto) Not Reportable Baso % (Auto) Not Reportable Lymph # (Auto) Not Reportable [place] # (Auto) Not Reportable Eos # (Auto) Not Reportable Baso # (Auto) Not Reportable Abs Immat Gran (auto) Not Reportable Absolute Neuts (auto) Not Reportable Absolute Nucleated RBC Not Reportable Total Counted 100 Neutrophils % (Manual) 91 H Band Neutrophils % 5 Lymphocytes % (Manual) 1.0 L Monocytes % (Manual) 3 Nucleated RBC % Not Reportable Abs Neuts (Manual) 18.72 H Abs Lymphs (Manual) 0.19 L Abs Monocytes (Manual) 0.58 Platelet Estimate Adequate Anisocytosis 1+ Cheryl Cells 2+ Schistocytes None seen Sodium 135 L Potassium 4.7 Chloride 106 Carbon Dioxide 22 Anion Gap 7 L BUN 25 H Creatinine 1.60 H Estim Creat Clear Calc 43 Estimated GFR 42 L Glucose 134 H Lactic Acid 2.6 H 1.6 Calcium 8.4 Magnesium 1.8 Microbiology 03/28/23 11:31 Blood Blood Culture - Preliminary Gram negative bacilli isolated 03/28/23 11:31 Blood Blood Culture - Preliminary Gram negative bacilli isolated Post-procedural complaints: none Patient Feedback: Patient satisfied with anesthetic care.
[2023-03-29] MEDS: TAMSULOSIN HCL 0.4 MG CAPSULE 0.8 MG PO (20:05)
[2023-03-30] VITALS (15 sets, daily range): BP systolic 104–135; BP diastolic 56–76; PULSE 64–92; RESP 12–18; TEMP 36.3–37.2; O2SAT 93–96
[2023-03-30 08:32] LABS: Basophils Percent Auto 0.3 % (0.2-1.2); Eosinophils Absolute Auto 0.2 K/mm3 (0-0.3); Eosinophils Percent Auto 1.7 % (0-4.4); Hematocrit 34.1 % (42.0-52.0); Hemoglobin 11.1 g/dL (14.0-18.0); Immature Granulocyte Absolute 0.14 K/mm3 (0.00-0.031); Immature Granulocyte Percent A 1.1 % (0-0.5); Lymphocytes Absolute Auto 0.58 K/mm3 (0.9-3.2); Lymphocytes Percent Auto 4.5 % (18.3-44.2); Mean Corpuscular HGB Conc 32.6 g/dl (32-36); Mean Corpuscular Hemoglobin 34.5 pg (26-34); Mean Corpuscular Volume 105.9 fl (80-100); Mean Platelet Volume 9.1 fl (7.4-10.4); Monocytes Percent Auto 7.3 % (2.6-8.5); Neutrophils Percent Auto 85.1 % (45.5-73.1); Platelet Count Result 183 k/mm3 (150-375); Red Blood Count 3.22 M/mm3 (4.6-6.20); Red Cell Distribution Width 12.5 % (11.5-14.5)
[2023-03-30 08:45] LABS: Alanine Aminotransferase 27 U/L (6-50); Albumin Level 3.5 g/dL (3.5-5.1); Alkaline Phosphatase 54 U/L (38-126); Anion Gap 7 mmol/L (8-16); Aspartate Amino Transferase 27 U/L (17-59); Bilirubin,Total 0.7 mg/dL (0.2-1.3); Blood Urea Nitrogen 24 mg/dL (9-20); Calcium 8.4 mg/dL (8.4-10.2); Carbon Dioxide 25 mmol/L (22-30); Chloride 102 mmol/L (98-107); Estimated CRCL calculation 46 ml/min; Estimated Glomerular Filt Rate 45; Glucose 96 mg/dL (65-110); Potassium 3.8 mmol/L (3.4-5.0); Sodium 134 mmol/L (137-145)
[2023-03-30] MEDS: ERTAPENEM 1 GM/NS 50 ML 1 GM/50 ML BAG IVPB (09:00)
[2023-03-30] MEDS: CHOLECALCIFEROL 1,000 UNITS TABLET 10000 UNITS PO (09:06)
[2023-03-30] MEDS: METOPROLOL TARTRATE 50 MG TAB PO ×2 (09:07→20:03)
[2023-03-30] MEDS: oxyBUTYnin CHLORIDE XL 5 MG TAB.ER.24 10 MG PO (09:07)
[2023-03-30] MEDS: FOLIC ACID 1 MG TABLET PO ×2 (09:07→17:27)
[2023-03-30] MEDS: DORZOLAMIDE HCL 2% OPHTH DROPS 1 DROP LEFT EYE ×3 (09:07→17:27)
[2023-03-30] MEDS: VANCOMYCIN 1,250 MG/NS 250 ML 1,250 MG/250 ML BAG 166.67 MG IVPB ×2 (10:14→10:15)
--- NOTE | 2023-03-30 13:45 | PM.IMPN ---
Progress Note: A&P Assessment and Plan (1) Acute pyelonephritis: Code(s): N10 - Acute pyelonephritis Status: Acute Assessment and Plan: Patient presented with dysuria/fevers. CT showed concerns for pyelonephritis with 3 mm obstructing stone. Urology consulted, surgery today for stone removal and stent placement. Blood cultures positive Gram-negative bacteremia, continue Rocephin 2 g daily, follow sensitivities, repeat cultures ordered and pending Follow urine culture IV fluids, supportive care PT/OT consult, concern for weakness (2) Urinary tract obstruction by kidney stone: Code(s): N20.0 - Calculus of kidney; N13.8 - Other obstructive and reflux uropathy Status: Acute Assessment and Plan: Urology consulted and surgery done 03/28 - 3 mm stone removed Improving, monitor Plan Chronic Conditions -RA: hold hydroxychloroquine while blood cx positive, cont folic acid. -HTN: hold lisinopril until creat normalizes, cont metoprolol. monitor BP. -Glaucoma: continue dorzolamide 2%. Held: brimonidine-timolol drops, systane ultra drops, and travoprost due to non-formulary. If patient has medications at bedside, may take home med. -Memory loss: concern for underlying dementia, superimposed delirium noted while hospitalized Diet: Heart Healthy DVT Prophylaxis: SCDs, Lovenox held due to recent procedure Code Status: Full Code Subjective Date/time seen: 03/30/23 13:45 Interval history: 77 y/o M with PMH of recurrent UTIs, recent cystoscopy and left ureteroscopy with laser lithotripsy stone extraction on 02/22/23, and sepsis r/t UTI (2019) presents here with dysuria and fever is being treated for UTI with sepsis and bacteremia. No overnight events noted. No chest pain or shortness of breath. No nausea, vomiting or diarrhea. No fevers or chills. Review of Systems Review of Systems: 12 point review of systems was assessed and was negative except as noted in the HPI Exam Narrative: General: No acute distress, alert and oriented per baseline HEENT: Atraumatic, normocephalic, mucous membranes moist CV: Regular rate and rhythm, S1, S2 Lungs: Clear to auscultation bilaterally, no rales or crackles noted, no wheezes, good air entry Abdomen: Soft, nontender, nondistended Extremities: Normal to inspection Skin: No rashes noted, no lesions or wounds seen Psych: Euthymic, normal affect Objective Data Vital Signs Vital Signs: Vital Signs - 24 hr 03/29/23 16:00 03/29/23 16:15 03/29/23 14:00 Temperature 98.6 F Pulse Rate 66 94 Respiratory Rate 16 Blood Pressure 121/46 L 117/44 L Pulse Oximetry 95 Oxygen Delivery 03/29/23 16:00 03/29/23 18:00 03/29/23 16:00 Temperature Pulse Rate 98 100 Respiratory Rate Blood Pressure Pulse Oximetry Oxygen Delivery Room Air 03/29/23 20:04 03/29/23 20:00 03/29/23 20:00 Temperature 98.9 F Pulse Rate 78 98 101 H Respiratory Rate 20 Blood Pressure 107/50 L Pulse Oximetry 100 Oxygen Delivery 03/29/23 20:00 03/29/23 21:36 03/29/23 23:15 Temperature Pulse Rate 101 H 77 82 Respiratory Rate 20 Blood Pressure Pulse Oximetry 100 Oxygen Delivery Room Air 03/29/23 23:15 03/29/23 23:29 03/30/23 02:00 Temperature 98.8 F Pulse Rate 82 89 68 Respiratory Rate 20 18 Blood Pressure 105/53 L Pulse Oximetry 100 94 Oxygen Delivery Room Air 03/30/23 04:00 03/30/23 04:00 03/30/23 04:00 Temperature 97.4 F L Pulse Rate 68 68 88 Respiratory Rate 18 18 Blood Pressure 130/71 Pulse Oximetry 94 94 Oxygen Delivery Room Air 03/30/23 05:46 03/30/23 07:54 03/30/23 09:07 Temperature 98.4 F Pulse Rate 64 80 85 Respiratory Rate 12 Blood Pressure 104/58 L Pulse Oximetry 95 Oxygen Delivery 03/30/23 11:42 03/30/23 08:00 03/30/23 12:00 Temperature 98.9 F Pulse Rate 77 Respiratory Rate 18 Blood Pressure 115/56 L Pulse Oximetry 95
--- NOTE | 2023-03-30 15:21 | WPDUROPN2 ---
Progress Note: A&P Assessment and Plan (1) Acute pyelonephritis: Code(s): N10 - Acute pyelonephritis Status: Acute (2) Hydronephrosis, left: Code(s): N13.30 - Unspecified hydronephrosis Status: Acute Plan Tolerating stent well - should f/u ~10 days for stent removal. Subjective Subjective Date/Time Seen: 03/30/23 15:21 Interval history: Comfortable, tolerating stent and diet Review of Systems Cardiovascular: Cardiovascular: Denies chest pain, Denies lightheadedness, Denies palpitations and Denies dyspnea Respiratory: Respiratory: Denies dyspnea Gastrointestinal: Gastrointestinal: Denies diarrhea, Denies nausea and Denies vomiting Genitourinary: Genitourinary: Denies hematuria and Denies dysuria Endocrine: Endocrine: Denies palpitations Exam Const: General: no acute distress Resp: Effort & Inspection: normal respiratory effort GI: Inspection: non-distended GI Palp: No abdominal tenderness and No Guarding due to palpation present (GI) Auscultation: normal bowel sounds Objective Data Vital Signs Vital Signs: Vital Signs - 24 hr 03/29/23 16:00 03/29/23 16:15 03/29/23 16:00 Temperature 98.6 F Pulse Rate 66 98 Respiratory Rate 16 Blood Pressure 121/46 L 117/44 L Pulse Oximetry 95 Oxygen Delivery 03/29/23 18:00 03/29/23 16:00 03/29/23 20:04 Temperature Pulse Rate 100 78 Respiratory Rate Blood Pressure Pulse Oximetry Oxygen Delivery Room Air 03/29/23 20:00 03/29/23 20:00 03/29/23 20:00 Temperature 98.9 F Pulse Rate 98 101 H 101 H Respiratory Rate 20 20 Blood Pressure 107/50 L Pulse Oximetry 100 100 Oxygen Delivery Room Air 03/29/23 21:36 03/29/23 23:15 03/29/23 23:15 Temperature Pulse Rate 77 82 82 Respiratory Rate 20 Blood Pressure Pulse Oximetry 100 Oxygen Delivery Room Air 03/29/23 23:29 03/30/23 02:00 03/30/23 04:00 Temperature 98.8 F Pulse Rate 89 68 68 Respiratory Rate 18 Blood Pressure 105/53 L Pulse Oximetry 94 Oxygen Delivery 03/30/23 04:00 03/30/23 04:00 03/30/23 05:46 Temperature 97.4 F L Pulse Rate 68 88 64 Respiratory Rate 18 18 Blood Pressure 130/71 Pulse Oximetry 94 94 Oxygen Delivery Room Air 03/30/23 07:54 03/30/23 09:07 03/30/23 11:42 Temperature 98.4 F 98.9 F Pulse Rate 80 85 77 Respiratory Rate 12 18 Blood Pressure 104/58 L 115/56 L Pulse Oximetry 95 95 Oxygen Delivery 03/30/23 08:00 03/30/23 12:00 03/30/23 08:00 Temperature Pulse Rate 90 Respiratory Rate Blood Pressure Pulse Oximetry Oxygen Delivery Room Air Room Air 03/30/23 10:00 03/30/23 12:00 Temperature Pulse Rate 80 82 Respiratory Rate Blood Pressure Pulse Oximetry Oxygen Delivery Intake/Output Intake/Output: Intake & Output 03/27/23 03/28/23 03/29/23 03/30/23 23:59 23:59 23:59 23:59 Intake Total 2820 1400 890 Output Total 3100 900 Balance 2820 -1700 -10 Meds/Results Medications: Active Medications Generic Name Dose Route Start Last Admin Trade Name Freq PRN Reason Stop Dose Admin Acetaminophen 650 mg 03/29/23 00:48 Acetaminophen 325 Mg Tablet PO Q4H PRN Mild Pain (1-4) Or Fever Dorzolamide HCl 1 drop 03/29/23 09:00 03/30/23 13:40 Dorzolamide Hcl 2% Ophth Drops LEFT EYE 1 drop TID [facility] Administration Folic Acid 1 mg 03/29/23 09:00 03/30/23 09:07 Folic Acid 1 Mg Tablet PO 1 mg BID [facility] Administration Hydroxychloroquine Sulfate 400 mg 03/29/23 08:00 03/29/23 08:29 Hydroxychloroquine Sulfate 200 Mg Tablet PO 400 mg DAILY@0800 [facility] Administration Ertapenem 1 gm in 50 mls @ 100 mls/hr 03/30/23 08:00 03/30/23 09:00 Invanz 1 Gm/Ns 50 Ml IVPB 100 mls/hr Q24H [facility] Administration Vancomycin HCl 1,500 mg in 500 mls @ 250 mls/hr 03/31/23 09:00 Vancomycin 1,500 Mg/D5w 500 Ml IVPB Q24H [facility] Lisinopril 10 mg 03/29/23 09:00 03/29/23 08:31 Lis
[2023-03-30] MEDS: TAMSULOSIN HCL 0.4 MG CAPSULE 0.8 MG PO (20:03)
[2023-03-31] VITALS (13 sets, daily range): BP systolic 125–148; BP diastolic 66–93; PULSE 67–98; RESP 16–18; TEMP 36.4–36.9; O2SAT 94–98
[2023-03-31 04:23] LABS: Basophils Percent Auto 0.4 % (0.2-1.2); Eosinophils Absolute Auto 0.3 K/mm3 (0-0.3); Hematocrit 31.1 % (42.0-52.0); Hemoglobin 10.5 g/dL (14.0-18.0); Immature Granulocyte Absolute 0.04 K/mm3 (0.00-0.031); Immature Granulocyte Percent A 0.4 % (0-0.5); Lymphocytes Absolute Auto 0.55 K/mm3 (0.9-3.2); Lymphocytes Percent Auto 6.1 % (18.3-44.2); Mean Corpuscular HGB Conc 33.8 g/dl (32-36); Mean Corpuscular Volume 103.7 fl (80-100); Mean Platelet Volume 9.2 fl (7.4-10.4); Monocytes Absolute Auto 0.8 K/mm3 (0.1-0.6); Monocytes Percent Auto 8.6 % (2.6-8.5); Neutrophils Absolute Auto 7.4 K/mm3 (1.3-6.7); Neutrophils Percent Auto 81.5 % (45.5-73.1); Platelet Count Result 186 k/mm3 (150-375); Red Cell Distribution Width 12.2 % (11.5-14.5); White Blood Count 9.1 K/mm3 (4.5-10.0)
[2023-03-31 04:35] LABS: Alanine Aminotransferase 26 U/L (6-50); Albumin Level 3.2 g/dL (3.5-5.1); Alkaline Phosphatase 53 U/L (38-126); Anion Gap 8 mmol/L (8-16); Aspartate Amino Transferase 26 U/L (17-59); Bilirubin,Total 0.5 mg/dL (0.2-1.3); Blood Urea Nitrogen 21 mg/dL (9-20); Calcium 8.5 mg/dL (8.4-10.2); Carbon Dioxide 23 mmol/L (22-30); Chloride 105 mmol/L (98-107); Estimated CRCL calculation 50 ml/min; Estimated Glomerular Filt Rate 49; Glucose 112 mg/dL (65-110); Sodium 136 mmol/L (137-145)
[2023-03-31] MEDS: CHOLECALCIFEROL 1,000 UNITS TABLET 10000 UNITS PO (09:44)
[2023-03-31] MEDS: oxyBUTYnin CHLORIDE XL 5 MG TAB.ER.24 10 MG PO (09:44)
[2023-03-31] MEDS: METOPROLOL TARTRATE 50 MG TAB PO ×2 (09:45→19:47)
[2023-03-31] MEDS: ERTAPENEM 1 GM/NS 50 ML 1 GM/50 ML BAG IVPB (09:45)
[2023-03-31] MEDS: DORZOLAMIDE HCL 2% OPHTH DROPS 1 DROP LEFT EYE ×3 (09:45→17:36)
[2023-03-31] MEDS: FOLIC ACID 1 MG TABLET PO ×2 (09:45→17:35)
--- NOTE | 2023-03-31 11:30 | PM.IMPN ---
Progress Note: A&P Assessment and Plan (1) Acute pyelonephritis: Code(s): N10 - Acute pyelonephritis Status: Acute Assessment and Plan: Patient presented with dysuria/fevers. CT showed concerns for pyelonephritis with 3 mm obstructing stone. Urology consulted, surgery today for stone removal and stent placement. Blood cultures positive klebsiella, continue Rocephin 2 g daily, follow sensitivities, repeat cultures ordered and pending Follow urine culture, klebsiella, sens pending IV fluids, supportive care PT/OT consult, concern for weakness, ok for d/c home (2) Urinary tract obstruction by kidney stone: Code(s): N20.0 - Calculus of kidney; N13.8 - Other obstructive and reflux uropathy Status: Acute Assessment and Plan: Urology consulted and surgery done 03/28 - 3 mm stone removed Improving, monitor Plan Chronic Conditions -RA: hold hydroxychloroquine while blood cx positive, cont folic acid. -HTN: hold lisinopril until creat normalizes, cont metoprolol. monitor BP. -Glaucoma: continue dorzolamide 2%. Held: brimonidine-timolol drops, systane ultra drops, and travoprost due to non-formulary. If patient has medications at bedside, may take home med. -Memory loss: concern for underlying dementia, superimposed delirium noted while hospitalized, recommend neuropsych testing at d/c Diet: Heart Healthy DVT Prophylaxis: SCDs, Lovenox held due to recent procedure Code Status: Full Code Subjective Date/time seen: 03/31/23 11:30 Interval history: 77 y/o M with PMH of recurrent UTIs, recent cystoscopy and left ureteroscopy with laser lithotripsy stone extraction on 02/22/23, and sepsis r/t UTI (2019) presents here with dysuria and fever is being treated for UTI with sepsis and bacteremia. No overnight events noted. No chest pain or shortness of breath. No nausea, vomiting or diarrhea. No fevers or chills. Patient admits to having episodes of confusion every once in awhile. Review of Systems Review of Systems: 12 point review of systems was assessed and was negative except as noted in the HPI Exam Narrative: General: No acute distress, alert and oriented per baseline HEENT: Atraumatic, normocephalic, mucous membranes moist CV: Regular rate and rhythm, S1, S2 Lungs: Clear to auscultation bilaterally, no rales or crackles noted, no wheezes, good air entry Abdomen: Soft, nontender, nondistended Extremities: Normal to inspection Skin: No rashes noted, no lesions or wounds seen Psych: Euthymic, normal affect Objective Data Vital Signs Vital Signs: Vital Signs - 24 hr 03/30/23 11:42 03/30/23 12:00 03/30/23 12:00 Temperature 98.9 F Pulse Rate 77 82 Respiratory Rate 18 Blood Pressure 115/56 L Pulse Oximetry 95 Oxygen Delivery Room Air 03/30/23 14:00 03/30/23 16:00 03/30/23 16:00 Temperature 98.1 F Pulse Rate 81 79 73 Respiratory Rate 18 Blood Pressure 132/76 Pulse Oximetry 96 Oxygen Delivery 03/30/23 16:00 03/30/23 18:00 03/30/23 20:03 Temperature Pulse Rate 83 79 Respiratory Rate Blood Pressure Pulse Oximetry Oxygen Delivery Room Air 03/30/23 20:00 03/30/23 20:00 03/30/23 20:00 Temperature 98.6 F Pulse Rate 87 92 Respiratory Rate 18 Blood Pressure 135/68 Pulse Oximetry 93 Oxygen Delivery Room Air 03/30/23 22:00 03/31/23 00:00 03/31/23 00:00 Temperature 97.6 F Pulse Rate 82 86 77 Respiratory Rate 18 Blood Pressure 134/72 Pulse Oximetry 96 Oxygen Delivery 03/31/23 00:00 03/31/23 02:00 03/31/23 04:00 Temperature Pulse Rate 74 69 Respiratory Rate Blood Pressure Pulse Oximetry Oxygen Delivery Room Air 03/31/23 04:00 03/31/23 04:00 03/31/23 06:00 Temperature 97.7 F Pulse Rate 76 70 Respiratory Rate 18 Blood Pressure 147/81 H Pulse Oximetry 97 Oxygen Delivery Room Air 03/31/23 07:51 03/31/23 09:45 Temperature 98.1 F Pulse
--- NOTE | 2023-03-31 15:49 | WPDUROPN2 ---
Progress Note: A&P Assessment and Plan (1) Acute pyelonephritis: Code(s): N10 - Acute pyelonephritis Status: Acute (2) Hydronephrosis, left: Code(s): N13.30 - Unspecified hydronephrosis Status: Acute Plan Tolerating stent well - should f/u ~10 days for stent removal. He will need continued antibiotics in the meantime He is working with PT and OT. If he is unable to go on a may need to consider short-term placement Subjective Subjective Date/Time Seen: 03/31/23 15:49 Interval history: No acute events overnight transferred out of the ICU. He does not like go home today. Review of Systems Cardiovascular: Cardiovascular: Denies chest pain, Denies lightheadedness, Denies palpitations and Denies dyspnea Respiratory: Respiratory: Denies dyspnea Gastrointestinal: Gastrointestinal: Denies diarrhea, Denies nausea and Denies vomiting Genitourinary: Genitourinary: Denies hematuria and Denies dysuria Endocrine: Endocrine: Denies palpitations Exam Eyes: General: appearance normal, both eyes and all related structures Resp: Effort & Inspection: normal respiratory effort GI: Inspection: normal to inspection Neuro: General: oriented to person, oriented to place and oriented to time Objective Data Vital Signs Vital Signs: Vital Signs - 24 hr 03/30/23 16:00 03/30/23 16:00 03/30/23 16:00 Temperature 36.7 C Pulse Rate 79 73 Respiratory Rate 18 Blood Pressure 132/76 Pulse Oximetry 96 Oxygen Delivery Room Air 03/30/23 18:00 03/30/23 20:03 03/30/23 20:00 Temperature 37.0 C Pulse Rate 83 79 87 Respiratory Rate 18 Blood Pressure 135/68 Pulse Oximetry 93 Oxygen Delivery 03/30/23 20:00 03/30/23 20:00 03/30/23 22:00 Temperature Pulse Rate 92 82 Respiratory Rate Blood Pressure Pulse Oximetry Oxygen Delivery Room Air 03/31/23 00:00 03/31/23 00:00 03/31/23 00:00 Temperature 36.4 C Pulse Rate 86 77 Respiratory Rate 18 Blood Pressure 134/72 Pulse Oximetry 96 Oxygen Delivery Room Air 03/31/23 02:00 03/31/23 04:00 03/31/23 04:00 Temperature Pulse Rate 74 69 Respiratory Rate Blood Pressure Pulse Oximetry Oxygen Delivery Room Air 03/31/23 04:00 03/31/23 06:00 03/31/23 07:51 Temperature 36.5 C 36.7 C Pulse Rate 76 70 98 Respiratory Rate 18 16 Blood Pressure 147/81 H 133/72 Pulse Oximetry 97 96 Oxygen Delivery 03/31/23 09:45 03/31/23 11:48 03/31/23 13:30 Temperature 36.8 C Pulse Rate 98 67 Respiratory Rate 18 Blood Pressure 138/84 Pulse Oximetry 94 Oxygen Delivery Room Air 03/31/23 13:45 Temperature Pulse Rate Respiratory Rate Blood Pressure Pulse Oximetry Oxygen Delivery Room Air Intake/Output Intake/Output: Intake & Output 03/28/23 03/29/23 03/30/23 03/31/23 23:59 23:59 23:59 23:59 Intake Total 2820 1400 1180 610 Output Total 3100 1800 1750 Balance 2820 -1700 -620 -1140 Meds/Results Medications: Active Medications Generic Name Dose Route Start Last Admin Trade Name Freq PRN Reason Stop Dose Admin Acetaminophen 650 mg 03/29/23 00:48 Acetaminophen 325 Mg Tablet PO Q4H PRN Mild Pain (1-4) Or Fever Dorzolamide HCl 1 drop 03/29/23 09:00 03/31/23 09:45 Dorzolamide Hcl 2% Ophth Drops LEFT EYE 1 drop TID [facility] Administration Folic Acid 1 mg 03/29/23 09:00 03/31/23 09:45 Folic Acid 1 Mg Tablet PO 1 mg BID [facility] Administration Hydroxychloroquine Sulfate 400 mg 03/29/23 08:00 03/29/23 08:29 Hydroxychloroquine Sulfate 200 Mg Tablet PO 400 mg DAILY@0800 [facility] Administration Ertapenem 1 gm in 50 mls @ 100 mls/hr 03/30/23 08:00 03/31/23 09:45 Invanz 1 Gm/Ns 50 Ml IVPB 100 mls/hr Q24H [facility] Administration Vancomycin HCl 1,500 mg in 500 mls @ 250 mls/hr 03/31/23 09:00 Vancomycin 1,500 Mg/D5w 500 Ml IVPB Q24H [facility] Lisinopril 10 mg 03/29/23 09:00 03/29/23 08:31 Lisinopril 10
[2023-03-31] MEDS: TAMSULOSIN HCL 0.4 MG CAPSULE 0.8 MG PO (19:48)
[2023-04-01] VITALS: PULSE 73
[2023-04-01 04:00] VITALS: BP 131/66; PULSE 66; PULSE 84; RESP 18; TEMP 36.4; O2SAT 94
[2023-04-01 08:00] VITALS: BP 141/73; PULSE 66; PULSE 77; RESP 18; TEMP 36.9; O2SAT 96
[2023-04-01 08:18] LABS: Basophils Absolute Auto 0.1 K/mm3 (0.0-0.1); Basophils Percent Auto 0.8 % (0.2-1.2); Eosinophils Absolute Auto 0.3 K/mm3 (0-0.3); Eosinophils Percent Auto 4.9 % (0-4.4); Hematocrit 34.6 % (42.0-52.0); Hemoglobin 11.6 g/dL (14.0-18.0); Immature Granulocyte Absolute 0.06 K/mm3 (0.00-0.031); Immature Granulocyte Percent A 0.9 % (0-0.5); Lymphocytes Absolute Auto 0.57 K/mm3 (0.9-3.2); Lymphocytes Percent Auto 8.7 % (18.3-44.2); Mean Corpuscular HGB Conc 33.5 g/dl (32-36); Mean Corpuscular Hemoglobin 34.7 pg (26-34); Mean Corpuscular Volume 103.6 fl (80-100); Mean Platelet Volume 9.1 fl (7.4-10.4); Monocytes Absolute Auto 0.8 K/mm3 (0.1-0.6); Monocytes Percent Auto 11.5 % (2.6-8.5); Neutrophils Absolute Auto 4.8 K/mm3 (1.3-6.7); Neutrophils Percent Auto 73.2 % (45.5-73.1); Platelet Count Result 199 k/mm3 (150-375); Red Blood Count 3.34 M/mm3 (4.6-6.20); White Blood Count 6.5 K/mm3 (4.5-10.0)
[2023-04-01 08:47] LABS: Alanine Aminotransferase 26 U/L (6-50); Albumin Level 3.8 g/dL (3.5-5.1); Alkaline Phosphatase 64 U/L (38-126); Anion Gap 9 mmol/L (8-16); Aspartate Amino Transferase 24 U/L (17-59); Bilirubin,Total 0.5 mg/dL (0.2-1.3); Blood Urea Nitrogen 19 mg/dL (9-20); Calcium 9.2 mg/dL (8.4-10.2); Carbon Dioxide 26 mmol/L (22-30); Chloride 102 mmol/L (98-107); Estimated CRCL calculation 50 ml/min; Estimated Glomerular Filt Rate 49; Glucose 117 mg/dL (65-110); Potassium 4.1 mmol/L (3.4-5.0); Sodium 137 mmol/L (137-145)
[2023-04-01 09:00] LABS: Vancomycin Trough 13.9 ug/mL (10.0-20.0)
--- NOTE | 2023-04-01 09:59 | PM.DS ---
DS: Admitting Diagnosis Discharge Date 04/01/2023 Admitting Diagnosis Dysuria DS: Discharge Diagnosis Discharge Diagnosis (1) Acute pyelonephritis: Code(s): N10 - Acute pyelonephritis Status: Acute Assessment and Plan: Patient presented with dysuria/fevers. CT showed concerns for pyelonephritis with 3 mm obstructing stone. Urology consulted, surgery today for stone removal and stent placement. Blood cultures positive klebsiella, continue Rocephin 2 g daily, follow sensitivities, repeat cultures ordered and pending Follow urine culture, klebsiella, sens pending IV fluids, supportive care PT/OT consult, concern for weakness, ok for d/c home (2) Urinary tract obstruction by kidney stone: Code(s): N20.0 - Calculus of kidney; N13.8 - Other obstructive and reflux uropathy Status: Resolved Assessment and Plan: Urology consulted and surgery done 03/28 - 3 mm stone removed Improving, monitor Plan Chronic Conditions -RA: hold hydroxychloroquine while blood cx positive, cont folic acid. -HTN: hold lisinopril until creat normalizes, cont metoprolol. monitor BP. -Glaucoma: continue dorzolamide 2%. Held: brimonidine-timolol drops, systane ultra drops, and travoprost due to non-formulary. If patient has medications at bedside, may take home med. -Memory loss: concern for underlying dementia, superimposed delirium noted while hospitalized, recommend neuropsych testing at d/c Diet: Heart Healthy DVT Prophylaxis: SCDs, Lovenox held due to recent procedure Code Status: Full Code DS: Summary Hospital Course Hospital Course: 77 y/o M with PMH of recurrent UTIs, recent cystoscopy and left ureteroscopy with laser lithotripsy stone extraction on 02/22/23, and sepsis r/t UTI (2019) presents here with dysuria and fever is being treated for UTI with sepsis and bacteremia. Patient presented with dysuria/fevers. CT showed concerns for pyelonephritis with 3 mm obstructing stone. Urology consulted, surgery today for stone removal and stent placement.? Blood cultures positive klebsiella, continue Rocephin 2 g daily, follow sensitivities, repeat cultures ordered and pending Follow urine culture, klebsiella, sens pending IV fluids, supportive care PT/OT consult, concern for weakness, ok for d/c home Please see above and med rec for details. Patient was discharged close outpatient follow-up. All symptoms resolved. Time Spent with Patient Time attestation: Total time spent providing and/or coordinating discharge services: Exam Narrative: General: No acute distress, alert and oriented per baseline HEENT: Atraumatic, normocephalic, mucous membranes moist CV: Regular rate and rhythm, S1, S2 Lungs: Clear to auscultation bilaterally, no rales or crackles noted, no wheezes, good air entry Abdomen: Soft, nontender, nondistended Extremities: Normal to inspection Skin: No rashes noted, no lesions or wounds seen Psych: Euthymic, normal affect DS: Data Data Completed and Pending Completed studies during hospitalization: Pending at discharge 03/28/23 11:33 Surgical [PTH] Routine Labs on day of discharge: Labs from last 24 hours 04/01/23 07:53 WBC 6.5 RBC 3.34 L Hgb 11.6 L Hct 34.6 L MCV 103.6 H MCH 34.7 H MCHC 33.5 RDW 12.0 Plt Count 199 MPV 9.1 Immature Gran % (Auto) 0.9 H Neut % (Auto) 73.2 H Lymph % (Auto) 8.7 L Sharp % (Auto) 11.5 H Eos % (Auto) 4.9 H Baso % (Auto) 0.8 Lymph # (Auto) 0.57 L Sharp # (Auto) 0.8 H Eos # (Auto) 0.3 Baso # (Auto) 0.1 Abs Immat Gran (auto) 0.06 H Absolute Neuts (auto) 4.8 Absolute Nucleated RBC 0.0 Nucleated RBC % 0.0 Sodium 137 Potassium 4.1 Chloride 102 Carbon Dioxide 26 Anion Gap 9 BUN 19 Creatinine 1.40 H Estim Creat Clear Calc 50 Estimated GFR 49 L Glucose 117 H Calcium 9.2 Total Bilirubin 0.5 AST 24 ALT 26 Alkaline Phosphatase 64 Total Protein 8.0 Albumin 3.8 Vancomycin Trough 13.
--- NOTE | 2023-04-01 10:05 | WPDUROPN2 ---
Progress Note: A&P Assessment and Plan (1) Acute pyelonephritis: Code(s): N10 - Acute pyelonephritis Status: Acute (2) Hydronephrosis, left: Code(s): N13.30 - Unspecified hydronephrosis Status: Acute Plan Tolerating stent well - should f/u ~10 days for stent removal with Dr Walker, pt understands stent is temporary He will need continued antibiotics in the meantime, ok to transition to po abx to cover klebsiella Subjective Subjective Date/Time Seen: 04/01/23 10:05 Interval history: feels well, wants to go home, tolerating diet. Denies fevers/chills. voiding fine. Tolerating diet. Review of Systems Constitutional: Constitutional: Reports as per HPI and Reports no additional constitutional complaints Eyes: Eyes: Reports as per HPI and Reports no additional eye complaints ENT: Reports system reviewed and no additional complaints, except as documented Gastrointestinal: Gastrointestinal: Denies abdominal pain Genitourinary: Genitourinary: Reports no additional male genitourinary complaints Musculoskeletal: Musculoskeletal: Reports no additional musculoskeletal complaints Exam Const: General: cooperative and healthy appearing HENMT: Head: normal to inspection Eyes: General: appearance normal, both eyes and all related structures Resp: Effort & Inspection: normal respiratory effort and able to speak in complete sentences Psych: Appearance: grossly normal Objective Data Vital Signs Vital Signs: Vital Signs - 24 hr 03/31/23 11:48 03/31/23 13:30 03/31/23 13:45 Temperature 36.8 C Pulse Rate 67 Respiratory Rate 18 Blood Pressure 138/84 Pulse Oximetry 94 Oxygen Delivery Room Air Room Air 03/31/23 16:00 03/31/23 12:00 03/31/23 16:00 Temperature 36.9 C Pulse Rate 94 82 71 Respiratory Rate 16 Blood Pressure 125/66 Pulse Oximetry 97 Oxygen Delivery 03/31/23 19:47 03/31/23 20:00 03/31/23 20:00 Temperature 36.6 C Pulse Rate 72 79 73 Respiratory Rate 18 Blood Pressure 148/93 H Pulse Oximetry 98 Oxygen Delivery 03/31/23 20:00 03/31/23 23:53 04/01/23 00:00 Temperature 36.5 C Pulse Rate 82 73 Respiratory Rate 18 Blood Pressure 134/68 Pulse Oximetry 96 Oxygen Delivery Room Air 04/01/23 04:00 04/01/23 04:00 04/01/23 08:00 Temperature 36.4 C 36.9 C Pulse Rate 84 66 66 Respiratory Rate 18 18 Blood Pressure 131/66 141/73 H Pulse Oximetry 94 96 Oxygen Delivery 04/01/23 08:00 Temperature Pulse Rate 77 Respiratory Rate Blood Pressure Pulse Oximetry Oxygen Delivery Intake/Output Intake/Output: Intake & Output 03/29/23 03/30/23 03/31/23 04/01/23 23:59 23:59 23:59 23:59 Intake Total 1400 1180 2500 790 Output Total 3100 1800 3550 1000 Balance -1700 -620 -1050 -210 Meds/Results Medications: Active Medications Generic Name Dose Route Start Last Admin Trade Name Eugeneq PRN Reason Stop Dose Admin Acetaminophen 650 mg 03/29/23 00:48 Acetaminophen 325 Mg Tablet PO Q4H PRN Mild Pain (1-4) Or Fever Dorzolamide HCl 1 drop 03/29/23 09:00 03/31/23 17:36 Dorzolamide Hcl 2% Ophth Drops LEFT EYE 1 drop TID [facility] Administration Folic Acid 1 mg 03/29/23 09:00 03/31/23 17:35 Folic Acid 1 Mg Tablet PO 1 mg BID [facility] Administration Hydroxychloroquine Sulfate 400 mg 03/29/23 08:00 03/29/23 08:29 Hydroxychloroquine Sulfate 200 Mg Tablet PO 400 mg DAILY@0800 [facility] Administration Ertapenem 1 gm in 50 mls @ 100 mls/hr 03/30/23 08:00 03/31/23 10:15 Invanz 1 Gm/Ns 50 Ml IVPB Infused Q24H [facility] Infusion Vancomycin HCl 1,750 mg in 500 mls @ 250 mls/hr 04/01/23 10:00 Vancomycin 1,750 Mg/D5w 500 Ml IVPB Q24H [facility] Lisinopril 10 mg 03/29/23 09:00 03/29/23 08:31 Lisinopril 10 Mg Tablet PO 10 mg DAILY [facility] Administration Metoprolol Tartrate 50 mg 03/29/23 09:00 03/31/23 19:47 Metoprolol Tartrate 50 Mg Tab PO 50 mg Q12H
[2023-04-01 10:10] VITALS: PULSE 60
[2023-04-01] MEDS: oxyBUTYnin CHLORIDE XL 5 MG TAB.ER.24 10 MG PO (10:10)
[2023-04-01] MEDS: METOPROLOL TARTRATE 50 MG TAB PO (10:10)
[2023-04-01] MEDS: FOLIC ACID 1 MG TABLET PO (10:10)
[2023-04-01] MEDS: DORZOLAMIDE HCL 2% OPHTH DROPS 1 DROP LEFT EYE (10:10)
[2023-04-01] MEDS: CHOLECALCIFEROL 1,000 UNITS TABLET 10000 UNITS PO (10:10)
[2023-04-01] MEDS: ERTAPENEM 1 GM/NS 50 ML 1 GM/50 ML BAG IVPB (10:10)
[2023-04-01 11:32] VITALS: BP 148/65; PULSE 60; RESP 18; TEMP 37.2; O2SAT 96
[2023-04-01 12:00] VITALS: PULSE 80
== END 2023-04-01 13:44 | disposition home health service (06) | DRG 854 ==
LOC: ANHED 13:30 → ANHSURGERY 13:30 → ANHIMU 13:30
PROVIDERS: Student in an Organized Health Care Education/Training Program; Urology; Admitting Provider Chiropractor; Emergency Provider Preventive Medicine Aerospace Medicine; PCP Family Medicine; Visit Provider Student in an Organized Health Care Education/Training Program
PROC: (CPT 52352; principal; 2023-03-28 10:45)
DX: A41.89 Other specified sepsis (principal); N13.6 Pyonephrosis; I10 Essential (primary) hypertension; I87.2 Venous insufficiency (chronic) (peripheral); I48.0 Paroxysmal atrial fibrillation; E55.9 Vitamin D deficiency, unspecified; C61 Malignant neoplasm of prostate; K76.0 Fatty (change of) liver, not elsewhere classified; M19.90 Unspecified osteoarthritis, unspecified site; M05.79 Rheumatoid arthritis with rheumatoid factor of multiple sites without organ or systems involvement; M10.9 Gout, unspecified; N32.81 Overactive bladder; R73.03 Prediabetes; H40.9 Unspecified glaucoma; Z86.711 Personal history of pulmonary embolism; Z86.73 Personal history of transient ischemic attack (TIA), and cerebral infarction without residual deficits; Z87.442 Personal history of urinary calculi; Z87.891 Personal history of nicotine dependence
CPT/HCPCS: 36415; 71045; 74177; 80048; 80053; 80202; 81001; 82365; 83605; 83735; 84484; 85025; 87040; 87077; 87081; 87086; 87186; 87493; 88300; 93005; 96361; 96365; 96367; 96375; 97162; 97165; 99285; A9270; C1769; C2617; G0378; J0696; J1100; J1335; J2270; J2371; J2405; J2543; J2704; J3010; J3370; J3475; J7030; J7120; Q9967

== ENCOUNTER 2023-04-19 10:31 | Outpatient (CLI) | payer MEDICARE, SELFPAY ==
[2023-04-19 17:48] LABS: Vitamin D 25 Hydroxy 62.6 ng/mL
[2023-04-19 18:00] LABS: Alanine Aminotransferase 28 U/L (6-50); Albumin Level 4.6 g/dL (3.5-5.1); Alkaline Phosphatase 61 U/L (38-126); Anion Gap 7 mmol/L (8-16); Aspartate Amino Transferase 30 U/L (17-59); Bilirubin,Total 0.6 mg/dL (0.2-1.3); Blood Urea Nitrogen 20 mg/dL (9-20); Calcium 9.5 mg/dL (8.4-10.2); Carbon Dioxide 27 mmol/L (22-30); Chloride 103 mmol/L (98-107); Cholesterol 178 mg/dL (0-200); Estimated Glomerular Filt Rate 49; Glucose 122 mg/dL (65-110); HDL Direct 37 mg/dL; Potassium 4.7 mmol/L (3.4-5.0); Sodium 137 mmol/L (137-145); Triglycerides 108 mg/dL (<150)
[2023-04-19 18:02] LABS: Thyroid Stimulating Hormone Reflex 0.434 uIU/mL (0.465-4.68)
[2023-04-19 18:11] LABS: LDL Cholesterol Direct 102 mg/dL
[2023-04-19 19:05] LABS: Free T4 Free Thyroxine Reflex 1.41 ng/dL (0.78-2.19)
[2023-04-19 20:00] LABS: Total Triiodothyronine (T3) 1.26 NG/ML (0.97-1.69)
== END 2023-04-19 10:32 | disposition home or self-care (01) ==
PROVIDERS: PCP Family Medicine; Visit Provider Internal Medicine Hematology & Oncology
DX: E78.5 Hyperlipidemia, unspecified (principal); E53.8 Deficiency of other specified B group vitamins; E55.9 Vitamin D deficiency, unspecified; I10 Essential (primary) hypertension
CPT/HCPCS: 36415; 80053; 80061; 82306; 82607; 84439; 84443; 84480

== ENCOUNTER 2023-06-20 12:21 | Outpatient (CLI) | payer MEDICARE, SELFPAY ==
[2023-06-20 12:42] LABS: Basophils Absolute Auto 0.1 K/mm3 (0.0-0.1); Basophils Percent Auto 0.9 % (0.2-1.2); Eosinophils Absolute Auto 0.2 K/mm3 (0-0.3); Eosinophils Percent Auto 3.8 % (0-4.4); Hematocrit 39.5 % (42.0-52.0); Hemoglobin 13.2 g/dL (14.0-18.0); Immature Granulocyte Absolute 0.01 K/mm3 (0.00-0.031); Immature Granulocyte Percent A 0.2 % (0-0.5); Lymphocytes Percent Auto 12.7 % (18.3-44.2); Mean Corpuscular HGB Conc 33.4 g/dl (32-36); Mean Corpuscular Hemoglobin 34.8 pg (26-34); Mean Corpuscular Volume 104.2 fl (80-100); Mean Platelet Volume 8.5 fl (7.4-10.4); Monocytes Absolute Auto 0.8 K/mm3 (0.1-0.6); Neutrophils Absolute Auto 3.7 K/mm3 (1.3-6.7); Neutrophils Percent Auto 67.4 % (45.5-73.1); Platelet Count Result 155 k/mm3 (150-375); Red Blood Count 3.79 M/mm3 (4.6-6.20); White Blood Count 5.5 K/mm3 (4.5-10.0)
[2023-06-20 14:12] LABS: Anion Gap 10 mmol/L (8-16); Blood Urea Nitrogen 23 mg/dL (9-20); Calcium 9.4 mg/dL (8.4-10.2); Carbon Dioxide 28 mmol/L (22-30); Chloride 103 mmol/L (98-107); Estimated Glomerular Filt Rate 45; Glucose 112 mg/dL (65-110); Potassium 4.5 mmol/L (3.4-5.0); Sodium 141 mmol/L (137-145)
[2023-06-20 15:22] LABS: Folic Acid > 20.0 ng/mL (2.76->20)
[2023-06-22 13:04] LABS: Homocysteine 16.4 umol/L (<11.4)
== END 2023-06-20 12:22 | disposition home or self-care (01) ==
LOC: ANHLAB 12:23
PROVIDERS: PCP Family Medicine; Visit Provider Internal Medicine Hematology & Oncology
DX: I26.99 Other pulmonary embolism without acute cor pulmonale (principal)
CPT/HCPCS: 36415; 80048; 82607; 82746; 83090; 85025

== ENCOUNTER 2023-07-30 14:38 | Outpatient (CLI) | payer MEDICARE, SELFPAY ==
[2023-07-30 20:27] LABS: Alanine Aminotransferase 38 U/L (6-50); Albumin Level 4.4 g/dL (3.5-5.1); Alkaline Phosphatase 68 U/L (38-126); Anion Gap 8 mmol/L (8-16); Aspartate Amino Transferase 39 U/L (17-59); Bilirubin,Total 0.6 mg/dL (0.2-1.3); Blood Urea Nitrogen 31 mg/dL (9-20); Calcium 9.5 mg/dL (8.4-10.2); Carbon Dioxide 31 mmol/L (22-30); Chloride 100 mmol/L (98-107); Estimated Glomerular Filt Rate 39; Glucose 102 mg/dL (65-110); Sodium 139 mmol/L (137-145)
[2023-07-30 21:07] LABS: Hemoglobin A1C 5.8 % (<5.7)
== END 2023-07-30 14:39 | disposition home or self-care (01) ==
LOC: ANHGOSHLAB 14:39
PROVIDERS: PCP Family Medicine; Visit Provider Family Medicine
DX: R73.03 Prediabetes (principal); I10 Essential (primary) hypertension
CPT/HCPCS: 36415; 80053; 83036

== ENCOUNTER 2023-08-28 09:08 | Outpatient (CLI) | payer MEDICARE, SELFPAY ==
--- NOTE | ~2023-08-28 | XR_ITS ---
EXAMINATION: XR abdomen/kub 1V INDICATION: Hematuria, history of kidney stones TECHNIQUE: Supine views of the abdomen were obtained on 2 radiographs. COMPARISON: 12/04/2022; CT, 03/28/2023 FINDINGS: No definite urolithiasis is identified. The bowel gas pattern is normal. Calcified atherosc lerosis is noted. There is severe lumbar spondylosis. 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 IMPRESSION: 1. No definite urolithiasis identified. Reviewed, dictated and finalized at location [facility]. [facility]
== END 2023-08-28 09:09 | disposition home or self-care (01) ==
PROVIDERS: PCP Family Medicine; Visit Provider Urology
DX: N20.0 Calculus of kidney (principal)
CPT/HCPCS: 74018

== ENCOUNTER 2023-09-19 01:37 | Day surgery (SDC) | payer MEDICARE, SELFPAY ==
[2023-09-03 14:15] VITALS: BMI 35.2
--- NOTE | 2023-09-17 10:39 | PC.NURSE ---
Patient called regarding upcoming procedure. Reviewed preop instructions, appointment times, and procedure prep.
--- NOTE | 2023-09-17 10:40 | PC.NURSE ---
Patient called regarding upcoming procedure. Reviewed preop instructions, appointment times, and procedure prep.
--- NOTE | 2023-09-18 14:39 | PM.HPGS ---
History of Present Illness History of Present Illness Consent: Risks, benefits, and alternatives have been discussed and questions answered. Patient agrees to proceed with procedure. Chief complaint: hx colon polyps Narrative: Shant Zaman is a 77 year old male Here for colon cancer screening. He has history of having had colon polyps. His last colonoscopy 8 years ago was negative for polyps. Review of Systems Review of Systems: All systems reviewed & are unremarkable except as noted in HPI and below PMFSH Past Medical History Medical History Acute pyelonephritis (~03/2023) Bacteremia (~10/2019) UTI with bacteremia, CNSS not saprophyticus. Khoury palsy (~2018) Chronic venous insufficiency of lower extremity COVID-19 Essential hypertension Glaucoma Gout Hepatic steatosis History of atrial fibrillation (~08/2022) due to sepsis History of pulmonary embolism (~02/2021) Hypogonadism in male Uses testosterone gel. Kidney stones Left ureteral stone Osteoarthritis Overactive bladder Paroxysmal atrial fibrillation (~10/2019) associated with sepsis Pre-diabetes Hemoglobin A1c was 6.3% in April 2019. Prostate cancer Pulmonary embolism 02/[address] scan performed for staging of prostate cancer bilateral lower lobe and middle lobe pulmonary embolism Recurrent kidney stones Retinal vein occlusion of left eye Rheumatoid arthritis with rheumatoid factor of multiple sites without organ or systems involvement Transient ischemic attack (~2014) Ureteral stone with hydronephrosis (~10/2022) Ureterolithiasis Vitamin D deficiency Surgical History Surgical History H/O colonoscopy with polypectomy History of appendectomy (~1957) History of cystoscopy (~05/2022) cystoscopy, left retrograde pyelography and left ureteral stent placement History of glaucoma tube shunt procedure (~06/2023) Left History of left cataract surgery (~2009) History of lithotripsy (~02/2023) Cystoscopy, left ureteroscopy with laser lithotripsy, stone extraction stent placement History of lithotripsy (~08/2022) Cystoscopy, left retrograde pyelography, left ureteroscopy with laser lithotripsy and stone extraction, left ureteral stent replacement History of ureter stent (~10/2022) cystoscopy, left retrograde pyelogram and placement of left 6fr variable length stent History of ureter stent (~03/2023) Cystoscopy, left ureteroscopy with stone extraction and left ureteral stent placement Hx of lithotripsy (~04/2022) Left ESWL Family History Family History Father Diabetes mellitus Acute myocardial infarction Heart disease Hypertension Social History Social History Social History: The patient lives in [place] with his . They have 3 sons and 1 daughter. He smoked up to 3 packs of cigarettes per day and quit 1995. No alcohol or drug abuse. 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 [employer] Code status: Full code Surrogate decision maker: Vandana () Smoking packs per day: 3 Smoking cigarettes per day: 60.0 Years smoked: 34 Smoking pack-years: 102.00 Smoking status: Former smoker Tobacco type: cigarettes Second hand tobacco smoke exposure: No Additional smoking assessment comments: pt states he started smoking at age 20 Alcohol intake: never Alcohol use details: occasional glass of wine Substance use: never Substance use type: does not use Lack of Transportation: No Lack of Food: Never True Current Housing: I Have Housing Concerned About Future Housing: No Difficulty Paying Gas/Electric Bills: No Difficulty Paying for Meds: No Currently Unemployed: No Education: High School Diploma/GED Difficulty w/ Childcare or Family Care: No Living arrangements: with [facility]
[2023-09-19 08:56] VITALS: BP 123/75; PULSE 72; RESP 18; TEMP 36.2; O2SAT 95
--- NOTE | 2023-09-19 09:04 | WPDANESEPPF ---
Anes - Initial Pre Proc Eval Procedure: Operation Date: 09/19/23 10:00 Proposed Procedures p Colonoscopy - Bud Carbone MD Date/Time: 09/19/23 09:04 Surgeon: Bud Carbone MD Pre Op Diagnosis: hx colon polyps Patient Data Age: 77 Gender: M Height: 1.78 m Weight: 110.4 kg Last Vital Signs Temp 36.2 C L 09/19/23 08:56 Pulse 72 09/19/23 08:56 Resp 18 09/19/23 08:56 BP 123/75 09/19/23 08:56 Pulse Ox 95 09/19/23 08:56 O2 Del Method Room Air 09/19/23 08:56 Allergies Allergy/AdvReac Type Severity Reaction Status Date / Time No Known Drug Allergies Allergy Mild unknown Verified 09/19/23 08:54 Home Medications Medication Instructions Recorded Confirmed Type cholecalciferol (vitamin D3) 125 250 mcg PO DAILY 11/18/22 09/19/23 History mcg (5,000 unit) tablet (Vitamin D3) peg 400-propylene glycol 0.4 %-0.3 1 drp EACH EYE QID PRN Dry Eye(S) 11/19/22 09/19/23 History % eye drops (Systane Ultra) oxybutynin chloride 10 mg 10 mg PO DAILY #90 tabs 12/20/22 09/19/23 Rx tablet,extended release 24 hr tamsulosin 0.4 mg capsule 0.8 mg PO HS 02/16/23 09/19/23 History folic acid 1 mg tablet 1 mg PO BID 03/14/23 09/19/23 History potassium citrate 15 mEq (1,620 15 meq PO BID 03/14/23 09/19/23 History mg) tablet,extended release travoprost 0.004 % eye drops 1 drp EACH EYE HS 03/14/23 09/19/23 History hydroxychloroquine 200 mg tablet 400 mg PO DAILY #180 tabs 03/27/23 09/19/23 Rx brimonidine 0.2 %-timolol 0.5 % 1 drp EACH EYE Q12H 03/28/23 09/19/23 History eye drops metoprolol tartrate 50 mg tablet 50 mg PO BID #180 tabs 05/14/23 09/19/23 Rx diclofenac sodium 1 % topical gel 2 g topical QID PRN Pain 07/30/23 09/19/23 History mirabegron 25 mg tablet,extended 25 mg PO DAILY 07/30/23 09/19/23 History release 24 hr (Myrbetriq) cephalexin 250 mg capsule 250 mg PO DAILY 09/10/23 09/19/23 History lisinopril 10 mg tablet 10 mg PO DAILY 09/10/23 09/19/23 History Patient hx anesthesia problems: none Family hx anesthesia problems: none Results Review: All pre-operative results and documents have been reviewed as part of the pre-operative evaluation. [facility] Past Medical History Medical History Acute pyelonephritis (~03/2023) Bacteremia (~10/2019) UTI with bacteremia, CNSS not saprophyticus. Hkoury palsy (~2018) Chronic venous insufficiency of lower extremity COVID-19 Essential hypertension Glaucoma Gout Hepatic steatosis History of atrial fibrillation (~08/2022) due to sepsis History of pulmonary embolism (~02/2021) Hypogonadism in male Uses testosterone gel. Kidney stones Left ureteral stone Osteoarthritis Overactive bladder Paroxysmal atrial fibrillation (~10/2019) associated with sepsis Pre-diabetes Hemoglobin A1c was 6.3% in April 2019. Prostate cancer Pulmonary embolism 02/[address] scan performed for staging of prostate cancer bilateral lower lobe and middle lobe pulmonary embolism Recurrent kidney stones Retinal vein occlusion of left eye Rheumatoid arthritis with rheumatoid factor of multiple sites without organ or systems involvement Transient ischemic attack (~2014) Ureteral stone with hydronephrosis (~10/2022) Ureterolithiasis Vitamin D deficiency Surgical History Surgical History H/O colonoscopy with polypectomy History of appendectomy (~1957) History of cystoscopy (~05/2022) cystoscopy, left retrograde pyelography and left ureteral stent placement History of glaucoma tube shunt procedure (~06/2023) Left History of left cataract surgery (~2009) History of lithotripsy (~02/2023) Cystoscopy, left ureteroscopy with laser lithotripsy, stone extraction stent placement History of lithotripsy (~08/2022) Cystoscopy, left retrograde pyelography, left ureteroscopy with laser lithotripsy and stone extraction, left ureteral stent replacement Histor
[2023-09-19] MEDS: LACTATED RINGERS 1,000 ML 150 ML IV CONT (09:07)
[2023-09-19 10:11] VITALS: BP 97/64; PULSE 71; RESP 28; O2SAT 97
[2023-09-19 10:21] VITALS: BP 101/54; PULSE 68; RESP 18; O2SAT 98
[2023-09-19 10:31] VITALS: BP 108/50; PULSE 68; RESP 22; O2SAT 98
== END 2023-09-19 10:57 | disposition home or self-care (01) ==
PROVIDERS: PCP Family Medicine; Visit Provider Internal Medicine Gastroenterology
PROC: 0DJD8ZZ Inspection of Lower Intestinal Tract, Via Natural or Artificial Opening Endoscopic (ICD-10-PCS; CPT 45378; principal; 2023-09-19 10:00)
DX: Z12.11 Encounter for screening for malignant neoplasm of colon (principal); D12.2 Benign neoplasm of ascending colon; K62.7 Radiation proctitis; K57.30 Diverticulosis of large intestine without perforation or abscess without bleeding; I10 Essential (primary) hypertension; Z86.711 Personal history of pulmonary embolism; E29.1 Testicular hypofunction; Z85.46 Personal history of malignant neoplasm of prostate; Z86.73 Personal history of transient ischemic attack (TIA), and cerebral infarction without residual deficits; E55.9 Vitamin D deficiency, unspecified; Z87.891 Personal history of nicotine dependence
CPT/HCPCS: 45385; 88305; J2704; J7120

== ENCOUNTER → 2023-10-09 11:45 | Outpatient (REF) | payer MEDICARE, SELFPAY | LOC: ANHLAB 11:45 | PROVIDERS: PCP Family Medicine; Visit Provider Plastic Surgery | DX: C76.42 Malignant neoplasm of left upper limb (principal); L82.1 Other seborrheic keratosis | CPT/HCPCS: 88305 ==

== ENCOUNTER 2024-01-16 01:02 | Emergency (ER) | payer MEDICARE, SELFPAY ==
[2024-01-16] VITALS (19 sets, daily range): BP systolic 107–134; BP diastolic 71–86; PULSE 68–93; RESP 15–38; TEMP 38.1; O2SAT 92–98
--- NOTE | 2024-01-16 01:13 | ECG_ITS ---
Test Date: 2024-01-16 01:17:34 Measurements Intervals [place] Rate: 78 P: -30 SD: 186 QRS: 5 QRSD: 172 T: -18 QT: 401 QTc: 458 Interpretive Statements SINUS RHYTHM WITH SINUS ARRHYTHMIA RIGHT BUNDLE BRANCH BLOCK [120+ ms QRS DURATION, UPRIGHT V1, 40+ ms S IN I/aVL/V4/V5/V6] PROBABLE OLD INFERIOR INFARCT No previous ECG available for comparison Electronically Signed On 01-16-2024 11:52:18 CDT by Kofi Wagner M.D.
[2024-01-16 01:22] LABS: Basophils Absolute Auto 0.1 K/mm3 (0.0-0.1); Basophils Percent Auto 0.4 % (0.2-1.2); Eosinophils Absolute Auto 0.1 K/mm3 (0-0.3); Eosinophils Percent Auto 0.6 % (0-4.4); Hematocrit 38.4 % (42.0-52.0); Hemoglobin 13.3 g/dL (14.0-18.0); Immature Granulocyte Absolute 0.06 K/mm3 (0.00-0.031); Immature Granulocyte Percent A 0.5 % (0-0.5); Lymphocytes Absolute Auto 0.34 K/mm3 (0.9-3.2); Lymphocytes Percent Auto 2.8 % (18.3-44.2); Mean Corpuscular HGB Conc 34.6 g/dl (32-36); Mean Corpuscular Hemoglobin 35.9 pg (26-34); Mean Corpuscular Volume 103.8 fl (80-100); Mean Platelet Volume 8.9 fl (7.4-10.4); Monocytes Absolute Auto 1.1 K/mm3 (0.1-0.6); Monocytes Percent Auto 9.1 % (2.6-8.5); Neutrophils Absolute Auto 10.5 K/mm3 (1.3-6.7); Neutrophils Percent Auto 86.6 % (45.5-73.1); Platelet Count Result 162 k/mm3 (150-375); Red Cell Distribution Width 13.2 % (11.5-14.5); White Blood Count 12.1 K/mm3 (4.5-10.0)
[2024-01-16 01:30] LABS: Alanine Aminotransferase 26 U/L (6-50); Albumin Level 4.3 g/dL (3.5-5.1); Alkaline Phosphatase 56 U/L (38-126); Anion Gap 9 mmol/L (4-12); Aspartate Amino Transferase 26 U/L (17-59); Bilirubin,Total 0.7 mg/dL (0.2-1.3); Blood Urea Nitrogen 27 mg/dL (9-20); Carbon Dioxide 24 mmol/L (22-30); Chloride 106 mmol/L (98-107); Estimated CRCL calculation 39 ml/min; Estimated Glomerular Filt Rate 39; Glucose 195 mg/dL (65-110); INR 1.1; Potassium 4.7 mmol/L (3.4-5.0); Prothrombin Time 14.7 Seconds (11.1-14.7); Sodium 139 mmol/L (137-145)
[2024-01-16 01:31] LABS: Partial Thromboplastin Time 25.7 Seconds (22.3-36.8)
--- NOTE | 2024-01-16 03:29 | ED.AMS ---
HPI - Altered Mental Status General Chief Complaint: Altered Mental Status Stated Complaint: FALL, UTI S/S, AMS Time Seen by Provider: 01/16/24 03:27 Source: patient, family (), EMS and RN notes reviewed Mode of arrival: EMS Limitations: altered mental status (intermittently confused) History of Present Illness HPI narrative: Patient presents after EMS was called to a residence for a lift assist in the bathroom. Patient normally alert and oriented x4 but was more confused. Patient's states he was like this before when he had a UTI and is concerned for the same. Patient also complaining of back pain in triage but denies this current and notes this is chronic and he has been using Voltaren gel for this. Not acute and not in flanks. Patient denies any fevers. He has been having some pain with urination and feels slightly more weak. Follows with Dr Walker for prostate cancer s/p radiation as well as kidney stones and UTIs. Had optic nerve surrgery earlier in the year. Did not strike head when fell. Not on anticoagulation. Denies headache, chest pain, abdominal pain. Related Data Home Medications Medication Instructions Recorded Confirmed cholecalciferol (vitamin D3) 125 250 mcg PO DAILY 11/18/22 11/29/23 mcg (5,000 unit) tablet (Vitamin D3) peg 400-propylene glycol 0.4 %-0.3 1 drp EACH EYE QID PRN Dry Eye(S) 11/19/22 11/29/23 % eye drops (Systane Ultra) tamsulosin 0.4 mg capsule 0.8 mg PO HS 02/16/23 11/29/23 folic acid 1 mg tablet 1 mg PO BID 03/14/23 11/29/23 potassium citrate 15 mEq (1,620 15 meq PO BID 03/14/23 11/29/23 mg) tablet,extended release travoprost 0.004 % eye drops 1 drp EACH EYE HS 03/14/23 11/29/23 brimonidine 0.2 %-timolol 0.5 % 1 drp EACH EYE Q12H 03/28/23 11/29/23 eye drops diclofenac sodium 1 % topical gel 2 g topical QID PRN Pain 07/30/23 11/29/23 mirabegron 25 mg tablet,extended 25 mg PO DAILY 07/30/23 11/29/23 release 24 hr (Myrbetriq) cephalexin 250 mg capsule 250 mg PO DAILY 09/10/23 11/29/23 Allergies Allergy/AdvReac Type Severity Reaction Status Date / Time No Known Drug Allergies Allergy Mild unknown Verified 01/16/24 01:18 [facility] Past Medical History Medical History Acute pyelonephritis (~03/2023) Bacteremia (~10/2019) UTI with bacteremia, CNSS not saprophyticus. Khoury palsy (~2018) Chronic venous insufficiency of lower extremity COVID-19 Essential hypertension Glaucoma Gout Hepatic steatosis History of atrial fibrillation (~08/2022) due to sepsis History of pulmonary embolism (~02/2021) Hypogonadism in male Uses testosterone gel. Kidney stones Left ureteral stone Osteoarthritis Overactive bladder Paroxysmal atrial fibrillation (~10/2019) associated with sepsis Pre-diabetes Hemoglobin A1c was 6.3% in April 2019. Prostate cancer Pulmonary embolism 02/[address] scan performed for staging of prostate cancer bilateral lower lobe and middle lobe pulmonary embolism Recurrent kidney stones Retinal vein occlusion of left eye Rheumatoid arthritis with rheumatoid factor of multiple sites without organ or systems involvement Transient ischemic attack (~2014) Ureteral stone with hydronephrosis (~10/2022) Ureterolithiasis Vitamin D deficiency Surgical History Surgical History H/O colonoscopy with polypectomy History of appendectomy (~1957) History of cystoscopy (~05/2022) cystoscopy, left retrograde pyelography and left ureteral stent placement History of glaucoma tube shunt procedure (~06/2023) Left History of left cataract surgery (~2009) History of lithotripsy (~02/2023) Cystoscopy, left ureteroscopy with laser lithotripsy, stone extraction stent placement History of lithotripsy (~08/2022) Cystoscopy, left retrograde pyelography, left ureteroscopy with laser lithotripsy and stone extraction, left ureteral stent replacement History of ureter stent (~11/09
[2024-01-16 03:51] LABS: Appearance Urine Turbid (Clear); Bacteria Urine None Seen /hpf; Bilirubin Urine Negative (Negative); Blood Urine 2+ (Negative); Color Urine Yellow (Yellow); Glucose Urine UA Trace mg/dL (Negative); Ketones Urine Negative (Negative); Leukocyte Esterase Ur 2+ LEU/UL (Negative); Nitrate Urine Negative (Negative); Non Pathogenic Casts 0-2; Protein Urine 3+ mg/dL (Negative); Specific Grav Ur 1.018 (1.001-1.035); Squamous Epithelial Cell Urine None Seen /hpf (Few); Urobilinogen Urine 0.2 mg/dL (<2.0); WBC Urine >100 /hpf (0-3); pH Urine 5.5 (5.0-9.0)
[2024-01-16 03:52] LABS: Add Urine Microscopic? YES
[2024-01-16] MEDS: ACETAMINOPHEN 500 MG TABLET 1000 MG PO (03:58)
[2024-01-16 04:15] LABS: Magnesium 1.8 mg/dL (1.6-2.3)
[2024-01-16] MEDS: SODIUM CHLORIDE 0.9% IV 1,000 ML 999 ML IV CONT (04:18)
[2024-01-16 04:48] LABS: Influenza A QL RT-PCR Negative (Negative); Influenza B QL RT-PCR Negative (Negative); SARS-CoV-2 RNA PCR Negative (Negative)
== END 2024-01-16 05:43 | disposition home or self-care (01) ==
PROVIDERS: Emergency Provider Student in an Organized Health Care Education/Training Program; PCP Family Medicine
DX: N39.0 Urinary tract infection, site not specified (principal); I12.9 Hypertensive chronic kidney disease with stage 1 through stage 4 chronic kidney disease, or unspecified chronic kidney disease; N18.9 Chronic kidney disease, unspecified; D64.9 Anemia, unspecified; D72.829 Elevated white blood cell count, unspecified; I45.10 Unspecified right bundle-branch block; R41.0 Disorientation, unspecified; Z20.822 Contact with and (suspected) exposure to COVID-19; I87.2 Venous insufficiency (chronic) (peripheral); E55.9 Vitamin D deficiency, unspecified; M10.9 Gout, unspecified; M05.79 Rheumatoid arthritis with rheumatoid factor of multiple sites without organ or systems involvement; M19.90 Unspecified osteoarthritis, unspecified site; N32.81 Overactive bladder; H40.9 Unspecified glaucoma; R73.03 Prediabetes; Z86.16 Personal history of COVID-19; Z86.711 Personal history of pulmonary embolism; Z87.442 Personal history of urinary calculi; Z86.73 Personal history of transient ischemic attack (TIA), and cerebral infarction without residual deficits; Z87.891 Personal history of nicotine dependence; Z86.010 Personal history of colon polyps; Z85.46 Personal history of malignant neoplasm of prostate; Z98.42 Cataract extraction status, left eye; Z79.899 Other long term (current) drug therapy
CPT/HCPCS: 36415; 80053; 81001; 83735; 85025; 85610; 85730; 87086; 87088; 87636; 93005; 99284; A9270; J0696; J7030

== ENCOUNTER 2024-03-21 19:57 | Inpatient (IN) | payer MEDICARE, SELFPAY ==
--- NOTE | ~2024-03-21 | CT_ITS ---
EXAMINATION: CT brain wo con DATE: 03/21/2024 21:06 INDICATION: Altered mental status. TECHNIQUE: Computed tomography (CT) of the head was performed without intravenous contrast. The mA wa s adjusted according to patient size. Iterative reconstruction technique was employed. The dose-lengt h product was 681.00 mGy-cm. COMPARISON: Head CT 03/14/2023 FINDINGS: There are scattered areas of low attenuation in the cerebral white matter. There is no intr acranial hemorrhage, acute infarction, or abnormal intracranial mass lesion. The ventricles are austin l in size. There is mild mucosal thickening in right maxillary sinus. There are likely changes of lef t ocular lens replacement surgery. The mastoid air cells are normal. There is cerumen in the external auditory canals. IMPRESSION: 1. Stable moderate nonspecific cerebral white matter disease, which likely represents chronic small v essel ischemic disease. Reviewed, dictated and finalized at location A. IMPRESSION: 1. Stable moderate nonspecific cerebral white matter disease, which likely repr esents chronic small vessel ischemic disease.
--- NOTE | ~2024-03-21 | XR_ITS ---
EXAMINATION: XR chest 1V DATE: 03/21/2024 21:09 INDICATION: Altered mental status. TECHNIQUE: A single frontal view of the chest was obtained. COMPARISON: Chest single view 03/30/2023 FINDINGS: There is mild atelectasis in the right mid and lower lung zones and left lower lung zone. N o pleural effusion or pneumothorax. The heart size is normal. IMPRESSION: 1. Mild atelectasis in right mid and lower lung zones and left lower lung zone. Reviewed, dictated and finalized at location A.
--- NOTE | ~2024-03-21 | CT_ITS ---
EXAMINATION: CT abdomen pelvis wo con DATE: 03/21/2024 22:43 INDICATION: Kidney stone. TECHNIQUE: Computed tomography (CT) of the abdomen and pelvis was performed without intravenous contr ast. Automated exposure control and iterative reconstruction technique were employed. The dose-length product was 512.25 mGy-cm. COMPARISON: CT abdomen and pelvis 03/28/2023 FINDINGS: The visualized portions of the lung bases demonstrate mild emphysema and mild atelectasis. No pleural effusion. The heart size is normal. There are coronary artery calcifications. No pericardi al effusion. The liver, gallbladder, spleen, pancreas, adrenal glands are normal. There is cortical t hinning in the kidneys. There is mild left hydronephrosis and hydroureter. The prostate is mildly enl arged. There is a right inguinal hernia containing fat. There is diverticulosis of the colon without evidence of diverticulitis. There are no dilated loops of bowel. The appendix is not visualized. Ther e is calcified atherosclerosis of the aorta and many of the other arteries. There are no pathological ly enlarged lymph nodes. There is no ascites. There is lumbar dextroscoliosis and severe spondylosis. IMPRESSION: 1. Mild left hydronephrosis and hydroureter. No urolithiasis. Reviewed, dictated and finalized at location A.
--- NOTE | ~2024-03-21 | US_ITS ---
US renal BI 03/22/2024 12:36 Procedure: Realtime transabdominal ultrasound of the kidneys and bladder. Indication: Acute renal insufficiency. Kidney stone. Comparison: No prior studies for comparison. Findings: Renal echotexture is normal bilaterally without delay contour deforming mass or renal calcu cipriano. There is mild left hydronephrosis. The right kidney measures 12.6 cm and left kidney measures 12 .7 cm. De Leon catheter present in the bladder. Impression: 1: Mild left hydronephrosis. Reviewed, dictated and finalized at location B. Impression: 1: Mild left hydronephrosis.
[2024-03-21 19:56] VITALS: BP 129/84; PULSE 118; RESP 20; TEMP 38.4; O2SAT 86
[2024-03-21 19:57] VITALS: O2SAT 98
--- NOTE | 2024-03-21 20:05 | ECG_ITS ---
Test Date: 2024-03-21 20:05:03 Measurements Intervals [place] Rate: 123 P: 0 NV: 0 QRS: 24 QRSD: 149 T: -7 QT: 343 QTc: 491 Interpretive Statements ATRIAL FIBRILLATION WITH RAPID VENTRICULAR RESPONSE WITH ABERRANT CONDUCTION OR VENTRICULAR PREMATURE COMPLEXES RIGHT BUNDLE BRANCH BLOCK MODERATE T-WAVE ABNORMALITY, CONSIDER LATERAL ISCHEMIA Compared to ECG 01/16/2024 01:17:34 ATRIAL FIBRILLATION has replaced sinus rhythm Ventricular premature complex(es) now present Electronically Signed On 03-22-2024 14:38:11 CDT by Micha Ward M.D.
--- NOTE | 2024-03-21 20:14 | ED.AMS ---
HPI - Altered Mental Status General Chief Complaint: Altered Mental Status Stated Complaint: AMS, FREQUENT UTI's History of Present Illness HPI narrative: Patient is a 78-year-old male who presents to the emergency department this evening via EMS due to concern for altered mental status. called EMS states the patient has been confused and he is normally alert and oriented x4. also informed EMS that patient normally gets like this when he has a urinary tract infection and he has been complaining of dysuria for the past few days. Patient also states that he has been having difficulty initiating his stream. Denies any abdominal pain, any flank pain, any chest pain or shortness of breath, and denies any recent falls or trauma. No additional symptoms or concerns at this time. Related Data Home Medications Medication Instructions Recorded Confirmed cholecalciferol (vitamin D3) 125 250 mcg PO DAILY 11/18/22 03/19/24 mcg (5,000 unit) tablet (Vitamin D3) peg 400-propylene glycol 0.4 %-0.3 1 drp EACH EYE QID PRN Dry Eye(S) 11/19/22 03/19/24 % eye drops (Systane Ultra) tamsulosin 0.4 mg capsule 0.8 mg PO HS 02/16/23 03/19/24 folic acid 1 mg tablet 1 mg PO BID 03/14/23 03/19/24 potassium citrate 15 mEq (1,620 15 meq PO BID 03/14/23 03/19/24 mg) tablet,extended release travoprost 0.004 % eye drops 1 drp EACH EYE HS 03/14/23 03/19/24 brimonidine 0.2 %-timolol 0.5 % 1 drp EACH EYE Q12H 03/28/23 03/19/24 eye drops diclofenac sodium 1 % topical gel 2 g topical QID PRN Pain 07/30/23 03/19/24 mirabegron 25 mg tablet,extended 25 mg PO DAILY 07/30/23 03/19/24 release 24 hr (Myrbetriq) cephalexin 250 mg capsule 250 mg PO DAILY 09/10/23 03/19/24 Allergies Allergy/AdvReac Type Severity Reaction Status Date / Time No Known Drug Allergies Allergy Mild unknown Verified 03/21/24 21:58 Review of Systems Review of Systems: All systems are reviewed and are negative unless stated otherwise in the HPI. [facility] Past Medical History Medical History Acute pyelonephritis (~03/2023) Bacteremia (~10/2019) UTI with bacteremia, CNSS not saprophyticus. 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 Kidney stones Left ureteral stone Osteoarthritis Overactive bladder Paroxysmal atrial fibrillation (~10/2019) associated with sepsis Pre-diabetes Hemoglobin A1c was 6.3% in April 2019. 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 History of appendectomy (~1957) History of cystoscopy (~05/2022) cystoscopy, left retrograde pyelography and left ureteral stent placement History of glaucoma tube shunt procedure (~06/2023) Left History of left cataract surgery (~2009) History of lithotripsy (~02/2023) Cystoscopy, left ureteroscopy with laser lithotripsy, stone extraction stent placement History of lithotripsy (~08/2022) Cystoscopy, left retrograde pyelography, left ureteroscopy with laser lithotripsy and stone extraction, left ureteral stent replacement History of ureter stent (~10/2022) cystosco
[2024-03-21 20:21] LABS: Basophils Absolute Auto 0.1 K/mm3 (0.0-0.1); Basophils Percent Auto 0.5 % (0.2-1.2); Eosinophils Absolute Auto 0.1 K/mm3 (0-0.3); Eosinophils Percent Auto 0.9 % (0-4.4); Hematocrit 44.9 % (42.0-52.0); Hemoglobin 14.8 g/dL (14.0-18.0); Immature Granulocyte Absolute 0.05 K/mm3 (0.00-0.031); Immature Granulocyte Percent A 0.4 % (0-0.5); Lymphocytes Percent Auto 5.3 % (18.3-44.2); Mean Corpuscular Hemoglobin 35.1 pg (26-34); Mean Corpuscular Volume 106.4 fl (80-100); Monocytes Absolute Auto 1.3 K/mm3 (0.1-0.6); Monocytes Percent Auto 9.6 % (2.6-8.5); Neutrophils Absolute Auto 11.1 K/mm3 (1.3-6.7); Neutrophils Percent Auto 83.3 % (45.5-73.1); Platelet Count Result 195 k/mm3 (150-375); Red Blood Count 4.22 M/mm3 (4.6-6.20); Red Cell Distribution Width 12.7 % (11.5-14.5); White Blood Count 13.3 K/mm3 (4.5-10.0)
[2024-03-21 20:28] LABS: Add Urine Microscopic? YES; Appearance Urine Turbid (Clear); Bacteria Urine 1+ /hpf; Bilirubin Urine Negative (Negative); Blood Urine 2+ (Negative); Color Urine Yellow (Yellow); Glucose Urine UA Negative (Negative); Ketones Urine Negative (Negative); Leukocyte Esterase Ur 3+ LEU/UL (Negative); Nitrate Urine Positive (Negative); Non Pathogenic Casts 0-2; Protein Urine 3+ mg/dL (Negative); Specific Grav Ur 1.015 (1.001-1.035); Squamous Epithelial Cell Urine None Seen /hpf (Few); Urobilinogen Urine 0.2 mg/dL (<2.0); WBC Urine >100 /hpf (0-3); pH Urine 5.5 (5.0-9.0)
[2024-03-21] MEDS: SODIUM CHLORIDE 0.9% IV 1,000 ML 999 ML IV CONT ×2 (20:30→21:53)
[2024-03-21] MEDS: levoFLOXacin 750 MG/D5W 150 ML 750 MG/150 ML BAG 100 MG IVPB (20:30)
[2024-03-21 20:37] VITALS: BP 144/88; PULSE 114; RESP 32; O2SAT 95
[2024-03-21 20:38] LABS: Lactic Acid Reflex 3.1 mmol/L (0.7-2.0)
[2024-03-21 20:39] VITALS: O2SAT 98
[2024-03-21 20:56] LABS: Alanine Aminotransferase 24 U/L (6-50); Albumin Level 4.7 g/dL (3.5-5.1); Alkaline Phosphatase 64 U/L (38-126); Anion Gap 15 mmol/L (4-12); Aspartate Amino Transferase 28 U/L (17-59); Bilirubin,Total 0.6 mg/dL (0.2-1.3); Blood Urea Nitrogen 32 mg/dL (9-20); Calcium 9.2 mg/dL (8.4-10.2); Carbon Dioxide 23 mmol/L (22-30); Chloride 102 mmol/L (98-107); Estimated CRCL calculation 40 ml/min; Estimated Glomerular Filt Rate 37; Glucose 143 mg/dL (65-110); Potassium 4.5 mmol/L (3.4-5.0); Sodium 140 mmol/L (137-145)
[2024-03-21 21:31] LABS: Influenza A QL RT-PCR Negative (Negative); Influenza B QL RT-PCR Negative (Negative); SARS-CoV-2 RNA PCR Negative (Negative)
[2024-03-21] MEDS: KETOROLAC 15 MG/ML VIAL (*BKC) IV PUSH (21:37)
[2024-03-21 21:45] VITALS: O2SAT 96
[2024-03-21 23:18] LABS: Reflex Lactic Acid Yes or No Add Lactic
[2024-03-21 23:41] VITALS: BP 98/65; PULSE 97; RESP 16; O2SAT 96
--- NOTE | 2024-03-21 23:59 | PM.IMHP ---
H&P: HPI History of Present Illness Date/Time: 03/21/24 23:59 Chief Complaint: Altered mental status Narrative: This very pleasant 78-year-old male patient with past medical history of frequent urinary tract infections, previous pyelonephritis in secondary bacteremia, Khoury's palsy, glaucoma, chronic kidney disease stage 3, hypertension, gout, fatty liver, AFib associated with sepsis twice previous, pulmonary embolism, nephrolithiasis, osteoarthritis, overactive bladder, rheumatoid arthritis, TIA, vitamin-D deficiency and associated confusion with his urinary tract infections presents to the emergency room by EMS this evening with complaints of having worsening of his confusion and altered mental status according to his spouse. At baseline patient is alert oriented x4, but today he has been repeating himself a lot and asking the same things over and over. He endorses that as of lately he has had increased difficulty starting his urine stream. When his degree of confusion worsened this evening she decided it was time for him to be evaluated. Patient denies any acute symptoms of pain, dyspnea, nausea, vomiting. He has no headaches, but does complain of some mild back pain. Upon arrival to the emergency room patient was noted to be febrile, tachycardic, tachypneic and hypoxic requiring 2 L of supplemental oxygen to bring his oxygen saturations greater than 92. Workup in the emergency room was significant for an EKG showing atrial fibrillation with RVR and a rate of 123. In addition patient has leukocytosis of 13.3 with elevated neutrophils, lactic acid of 3.1, BUN of 32, creatinine of 1.8 which is at patient's baseline kidney function, and urinalysis does reveal nitrate positive urinary tract infection. Patient received 2 L IV fluid bolus of normal saline. Chest x-ray was performed that shows mild atelectasis in the right mid and lower lung zones and left lower lung zones. CT brain was performed that showed stable moderate nonspecific cerebral right matter disease which likely represents chronic small vessel ischemic disease. CT abdomen pelvis was performed that shows mild left hydronephrosis and hydroureter without any noted urolithiasis. Blood cultures and urine cultures are pending at this time. Patient's most recent urinary tract infection show growth of Enterobacter and Klebsiella. Both sensitive to the quinolones which is what antibiotic agent in the emergency room provider chose to treat with based upon findings of chest x-ray as well as urine to cover for possible infection in both body systems. Patient received a dose of Levaquin. Recheck of his vital signs showed resolution of his tachycardia, resolution of his tachypnea, normalization of his hypoxia and stable blood pressures. He is being endorsed to hospitalist service at this time for admission for further evaluation and management. Patient does see Dr. Walker for his Urological needs. In addition patient is back to baseline answering all questions appropriately for this provider and is alert and oriented x4. Review of Systems Review of Systems: All systems reviewed & are unremarkable except as noted in HPI and below [facility] Past Medical History Medical History Acute pyelonephritis (~03/2023) Bacteremia (~10/2019) UTI with bacteremia, CNSS not saprophyticus. 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 Kidney stones Left ureteral stone Osteoarthritis Overactive bladder Paroxysmal atrial fibrillation (~10/2019) associated with sepsis Pre-diabetes Hemoglobin A1c was 6.3% in April 2019. Prostate cancer Pulmonary embolism
[2024-03-22] VITALS (13 sets, daily range): BP systolic 125–156; BP diastolic 66–88; PULSE 61–125; RESP 16–18; TEMP 36.6–36.7; O2SAT 92–99; BMI 30.9
[2024-03-22 00:01] LABS: Lactic Acid 1.9 mmol/L (0.7-2.0)
--- NOTE | 2024-03-22 00:23 | ADMGEN ---
This patient, Shant Zaman, was admitted to Medical Room 243-. Patient/family oriented to hospital policies and general routines including ID bracelet, bed and alarms, visiting hours, pain management, procedures, bathroom and other care routines, personal items, smoking policy, room service/diet, and visiting hours. Information on how to activate the Rapid Response Team has been discussed. Patient/Family are encouraged to report perceived risks to care and to ask questions if they do not understand what they are told or what they should do.
[2024-03-22] MEDS: SODIUM CHLORIDE 0.9% IV 1,000 ML 100 ML IV CONT ×3 (01:20→22:00)
--- NOTE | 2024-03-22 10:28 | P.PNIM_ITS ---
Progress Note: A&P Assessment and Plan (1) Sepsis: Code(s): A41.9 - Sepsis, unspecified organism Status: Acute Assessment and Plan: * As evidenced by presenting labs, VS and suspected source as urine. * Sepsis protocol initiated on admission. * Pt treated for UTI with Levaquin previously per cultures. * IVF bolus of 2L given to pt on admission. * BCx2 pending * Repeat lactic now normal. * Clinical improvement since admission. * Continue IVF now at 100 ml/hr * Continue to trend and monitor labs and VS. * Continue telemetry for now. (2) Acute UTI: Code(s): N39.0 - Urinary tract infection, site not specified Status: Acute Assessment and Plan: * UA; turbidity, 2+ Blood, Positive Nitrates, 3+ Leukocyte Esterase, >100 WBC's, 1+ Bacteria. * Previous Urine culture reviewed and positive for Enterococcus, mostly Klebsiella. Both sensitive to Levaquin and started in ER. * Continue continue Levaquin for now. * Continue to trend labs and VS. * Mentation appears normalized currently. (3) CKD stage 3a, GFR 45-59 ml/min: Code(s): N18.31 - Chronic kidney disease, stage 3a Status: Acute Assessment and Plan: * Pt's creatinine 1.4-1.8. Currrently 1.8. * Possibly STEVENSON vs CKD worsening. * Consider Nephrology consult if no improvement. * Consider Renal US if no improvement. (4) Paroxysmal atrial fibrillation: Onset Date: ~10/2019 Code(s): I48.0 - Paroxysmal atrial fibrillation Status: Acute Assessment and Plan: * Episodes of A-fib RVR previously with sepsis. * Initial EKG on admission showed A-fib RVR 123. * Currently rate low 100's. * Continue telemetry for now. * Hold metoprolol for now with low-BP. * Patient not on chronic anticoagulation. (5) Essential hypertension: Code(s): I10 - Essential (primary) hypertension Status: Chronic Assessment and Plan: * BP is stable, low normals. * Hold BP meds for now. (6) OAB (overactive bladder): Code(s): N32.81 - Overactive bladder Status: Acute Assessment and Plan: * Restart home medications once they have been reviewed and confirmed by nursing staff. Plan Continue oxybutynin. Time Spent With Patient Time with patient: 25 - 35 minutes Subjective Date/time seen: 03/22/24 10:28 Interval history: called EMS stating the patient had been confused and he is normally alert and oriented x4. also informed EMS that patient normally gets like this when he has a urinary tract infection and he has been complaining of dysuria for the past few days. Patient also states that he has been having difficulty initiating his stream. Patient currently seated on chair after breakfast. States still has frequency but not much coming out. States it was his 's 59th anniversary today and he didn't want to miss it, that's why he didn't want to come to the hospital since 2 days ago when the symptoms started, though he was sure it was a UTI. States h as frequent UTI's and takes antibiotics daily ( Cephalexin 250 mg QD) to prevent UTI's. Review of Systems Review of Systems: All systems reviewed & are unremarkable except as noted in HPI and below Exam Narrative: Constitutional: Pleasant, elderly male patient, sitting on chair, in no acute distress. HEENT: Atraumatic and normocephalic. Nose and ears are symmetric about the face. Patient has moist mucous membranes without lesion. Eyes: PERRL, EOMs intact. No icterus. Neck: Supple. No lymphadenopathy is present. No
--- NOTE | 2024-03-22 10:28 | PM.IMPN ---
Progress Note: A&P Assessment and Plan (1) Sepsis: Code(s): A41.9 - Sepsis, unspecified organism Status: Acute Assessment and Plan: As evidenced by presenting labs, VS and suspected source as urine. Sepsis protocol initiated on admission. Pt treated for UTI with Levaquin previously per cultures. IVF bolus of 2L given to pt on admission. BCx2 pending Repeat lactic now normal. Clinical improvement since admission. Continue IVF now at 100 ml/hr Continue to trend and monitor labs and VS. Continue telemetry for now. (2) Acute UTI: Code(s): N39.0 - Urinary tract infection, site not specified Status: Acute Assessment and Plan: UA; turbidity, 2+ Blood, Positive Nitrates, 3+ Leukocyte Esterase, >100 WBC's, 1+ Bacteria. Previous Urine culture reviewed and positive for Enterococcus, mostly Klebsiella. Both sensitive to Levaquin and started in ER. Continue continue Levaquin for now. Continue to trend labs and VS. Mentation appears normalized currently. (3) CKD stage 3a, GFR 45-59 ml/min: Code(s): N18.31 - Chronic kidney disease, stage 3a Status: Acute Assessment and Plan: Pt's creatinine 1.4-1.8. Currrently 1.8. Possibly STEVENSON vs CKD worsening. Consider Nephrology consult if no improvement. Consider Renal US if no improvement. (4) Paroxysmal atrial fibrillation: Onset Date: ~10/2019 Code(s): I48.0 - Paroxysmal atrial fibrillation Status: Acute Assessment and Plan: Episodes of A-fib RVR previously with sepsis. Initial EKG on admission showed A-fib RVR 123. Currently rate low 100's. Continue telemetry for now. Hold metoprolol for now with low-BP. Patient not on chronic anticoagulation. (5) Essential hypertension: Code(s): I10 - Essential (primary) hypertension Status: Chronic Assessment and Plan: BP is stable, low normals. Hold BP meds for now. (6) OAB (overactive bladder): Code(s): N32.81 - Overactive bladder Status: Acute Assessment and Plan: Restart home medications once they have been reviewed and confirmed by nursing staff. Plan Continue oxybutynin. Time Spent With Patient Time with patient: 25 - 35 minutes Subjective Date/time seen: 03/22/24 10:28 Interval history: called EMS stating the patient had been confused and he is normally alert and oriented x4. also informed EMS that patient normally gets like this when he has a urinary tract infection and he has been complaining of dysuria for the past few days. Patient also states that he has been having difficulty initiating his stream. Patient currently seated on chair after breakfast. States still has frequency but not much coming out. States it was his 's 59th anniversary today and he didn't want to miss it, that's why he didn't want to come to the hospital since 2 days ago when the symptoms started, though he was sure it was a UTI. States has frequent UTI's and takes antibiotics daily ( Cephalexin 250 mg QD) to prevent UTI's. Review of Systems Review of Systems: All systems reviewed & are unremarkable except as noted in HPI and below Exam Narrative: Constitutional: Pleasant, elderly male patient, sitting on chair, in no acute distress. HEENT: Atraumatic and normocephalic. Nose and ears are symmetric about the face. Patient has moist mucous membranes without lesion. Eyes: PERRL, EOMs intact. No icterus. Neck: Supple. No lymphadenopathy is present. No JVD. Respiratory: Lungs are clear bilaterally. Cardiovascular: RRR, no murmurs. GI: Soft, nontender, bowel sounds present x4 quads. Skin: [place], moist without jaundice. Patient has good turgor. There are no lesions, rashes. Neuro: Now alert and oriented x4. Nonfocal exam. Extremities: Warm and dry. There is no peripheral edema. Psych: Pleasant and co-operative. Objective Data Vital Signs Vital Signs: Vital Signs - 24 hr
--- NOTE | 2024-03-22 11:16 | PC.NURSE ---
1110 let Provider Pino know that pt's HR is a-fib with RVR anywhere from 105-140. Provider aware and stated he will restart metoprolol P.O. possibly at half the dose. Will check pressure prior to giving
[2024-03-22] MEDS: FOLIC ACID 1 MG TABLET PO ×2 (11:57→20:29)
[2024-03-22] MEDS: oxyBUTYnin CHLORIDE XL 5 MG TAB.ER.24 10 MG PO (11:57)
[2024-03-22] MEDS: METOPROLOL TARTRATE 25 MG TABLET PO ×2 (11:57→20:29)
[2024-03-22] MEDS: DULoxetine HCL 30 MG CAPSULE.DR PO ×2 (11:57→20:29)
[2024-03-22] MEDS: TIMOLOL MALEATE 0.5% OP SOLN 5 ML BOTTLE 1 DROP EACH EYE ×2 (11:58→20:30)
[2024-03-22] MEDS: BRIMONIDINE TARTRATE 0.2% OP SOLN 5 ML BTL 1 DROP EACH EYE ×2 (11:58→20:29)
[2024-03-22] MEDS: POTASSIUM CITRATE 5 MEQ TAB CR 15 MEQ PO ×2 (12:00→18:28)
[2024-03-22] MEDS: TAMSULOSIN HCL 0.4 MG CAPSULE 0.8 MG PO (20:29)
[2024-03-22] MEDS: LATANOPROST 0.005% OP SOLN 2.5 ML BTL 1 DROP EACH EYE (20:29)
[2024-03-23] VITALS (12 sets, daily range): BP systolic 109–140; BP diastolic 63–83; PULSE 62–91; RESP 16–18; TEMP 36.3–36.9; O2SAT 96–98
[2024-03-23] MEDS: ENOXAPARIN 40 MG/0.4 ML SYRINGE SUB-Q (00:02)
[2024-03-23 06:38] LABS: Basophils Percent Auto 0.6 % (0.2-1.2); Eosinophils Absolute Auto 0.3 K/mm3 (0-0.3); Eosinophils Percent Auto 4.5 % (0-4.4); Hematocrit 35.7 % (42.0-52.0); Hemoglobin 11.7 g/dL (14.0-18.0); Immature Granulocyte Absolute 0.04 K/mm3 (0.00-0.031); Immature Granulocyte Percent A 0.6 % (0-0.5); Lymphocytes Absolute Auto 0.58 K/mm3 (0.9-3.2); Mean Corpuscular HGB Conc 32.8 g/dl (32-36); Mean Corpuscular Hemoglobin 35.8 pg (26-34); Mean Corpuscular Volume 109.2 fl (80-100); Mean Platelet Volume 9.3 fl (7.4-10.4); Monocytes Absolute Auto 0.7 K/mm3 (0.1-0.6); Monocytes Percent Auto 10.6 % (2.6-8.5); Neutrophils Absolute Auto 4.8 K/mm3 (1.3-6.7); Neutrophils Percent Auto 74.7 % (45.5-73.1); Platelet Count Result 155 k/mm3 (150-375); Red Blood Count 3.27 M/mm3 (4.6-6.20); Red Cell Distribution Width 12.5 % (11.5-14.5); White Blood Count 6.5 K/mm3 (4.5-10.0)
[2024-03-23 06:54] LABS: Alanine Aminotransferase 21 U/L (6-50); Albumin Level 3.4 g/dL (3.5-5.1); Alkaline Phosphatase 49 U/L (38-126); Anion Gap 7 mmol/L (4-12); Aspartate Amino Transferase 28 U/L (17-59); Bilirubin,Total 0.5 mg/dL (0.2-1.3); Blood Urea Nitrogen 18 mg/dL (9-20); Calcium 8.1 mg/dL (8.4-10.2); Carbon Dioxide 23 mmol/L (22-30); Chloride 108 mmol/L (98-107); Estimated CRCL calculation 54 ml/min; Estimated Glomerular Filt Rate 53; Glucose 112 mg/dL (65-110); Magnesium 1.8 mg/dL (1.6-2.3); Potassium 4.5 mmol/L (3.4-5.0); Sodium 138 mmol/L (137-145)
[2024-03-23 07:06] LABS: Lactic Acid Reflex 0.8 mmol/L (0.7-2.0)
[2024-03-23 07:39] LABS: Macrocytosis 1+ (NORMAL); Platelet Estimate Adequate (Adequate); Schistocytes None Seen
[2024-03-23] MEDS: SODIUM CHLORIDE 0.9% IV 1,000 ML 100 ML IV CONT ×2 (08:51→20:50)
[2024-03-23] MEDS: oxyBUTYnin CHLORIDE XL 5 MG TAB.ER.24 10 MG PO (08:54)
[2024-03-23] MEDS: DULoxetine HCL 30 MG CAPSULE.DR PO ×2 (08:55→20:50)
[2024-03-23] MEDS: METOPROLOL TARTRATE 25 MG TABLET PO ×2 (08:55→20:50)
[2024-03-23] MEDS: FOLIC ACID 1 MG TABLET PO ×2 (08:56→20:50)
[2024-03-23] MEDS: BRIMONIDINE TARTRATE 0.2% OP SOLN 5 ML BTL 1 DROP EACH EYE ×2 (08:57→20:45)
[2024-03-23] MEDS: TIMOLOL MALEATE 0.5% OP SOLN 5 ML BOTTLE 1 DROP EACH EYE ×2 (08:57→20:45)
[2024-03-23] MEDS: POTASSIUM CITRATE 5 MEQ TAB CR 15 MEQ PO ×2 (09:03→16:41)
--- NOTE | 2024-03-23 09:03 | P.PNIM_ITS ---
Progress Note: A&P Assessment and Plan (1) Sepsis: Code(s): A41.9 - Sepsis, unspecified organism Status: Acute Assessment and Plan: * On admission with evidence from; labs, VS and suspected source as urine. * Sepsis protocol initiated on admission. * Resolved. * Pt receiving treatment for UTI with Levaquin previously per cultures. * IVF bolus of 2L given to pt on admission. * BCx2 pending * Repeat lactic now normal. * Clinical improvement since admission. * Continue IVF now at 100 ml/hr * Continue to trend and monitor labs and VS. * Continue telemetry for now. (2) Acute UTI: Code(s): N39.0 - Urinary tract infection, site not specified Status: Acute Assessment and Plan: * UA; turbidity, 2+ Blood, Positive Nitrates, 3+ Leukocyte Esterase, >100 WBC's, 1+ Bacteria. * Previous Urine culture reviewed and positive for Enterococcus, mostly Klebsiella. Both sensitive to Levaquin and started in ER. * Continue Levaquin for now. * Continue to trend labs and VS. * Mentation normalized. (3) CKD stage 3a, GFR 45-59 ml/min: Code(s): N18.31 - Chronic kidney disease, stage 3a Status: Acute Assessment and Plan: * Creatinine stabilizes, 1.8>>1.3 * Continue to monitor closely. * Avoid nephrotoxic agents. (4) Paroxysmal atrial fibrillation: Onset Date: ~10/2019 Code(s): I48.0 - Paroxysmal atrial fibrillation Status: Acute Assessment and Plan: * Episodes of A-fib RVR previously with sepsis. * Initial EKG on admission showed A-fib RVR 123. * CRate controlled in the 80's now. * Continue Metoprolol. * Continue telemetry. (5) Essential hypertension: Code(s): I10 - Essential (primary) hypertension Status: Chronic Assessment and Plan: * BP is stable on metoprolol. (6) OAB (overactive bladder): Code(s): N32.81 - Overactive bladder Status: Acute Assessment and Plan: * Continue Oxybutynin. Plan Continue to follow cultures and adjust antibiotics as needed. Time Spent With Patient Time with patient: 15 - 25 minutes Subjective Date/time seen: 03/23/24 09:03 Interval history: called EMS stating the patient had been confused and he is normally alert and oriented x4. also informed EMS that patient normally gets like this when he has a urinary tract infection and he has been complaining of dysuria for the past few days. Patient takes Cephalexin chronically for UTI prevention her his urologist. Patient currently on bedrest stating feeling better and urinay frequency much improved. Reports having much urine output now. Review of Systems Review of Systems: All systems reviewed & are unremarkable except as noted in HPI and below Exam Narrative: Constitutional: Pleasant, elderly male patient, currently on bedrest in no acute distress. HEENT: Atraumatic and normocephalic. PERRL, EOMI,non icteric. Neck: Supple. No lymphadenopathy is present. No JVD. Respiratory: Lungs are clear bilaterally. Cardiovascular: RRR, no murmurs. GI: Soft, nontender, bowel sounds present x4 quads. Skin: [place], moist without jaundice. Patient has good turgor. There are no lesions, rashes. Neuro: Now alert and oriented x4. Nonfocal exam. Extremities: Warm and dry. There is no peripheral edema. Psych: Pleasant and co-operative. Objective Data Vital Signs Vital Signs: Vital Signs - 24 hr 03/22/24 11:57 03/22/24
--- NOTE | 2024-03-23 09:03 | PM.IMPN ---
Progress Note: A&P Assessment and Plan (1) Sepsis: Code(s): A41.9 - Sepsis, unspecified organism Status: Acute Assessment and Plan: On admission with evidence from; labs, VS and suspected source as urine. Sepsis protocol initiated on admission. Resolved. Pt receiving treatment for UTI with Levaquin previously per cultures. IVF bolus of 2L given to pt on admission. BCx2 pending Repeat lactic now normal. Clinical improvement since admission. Continue IVF now at 100 ml/hr Continue to trend and monitor labs and VS. Continue telemetry for now. (2) Acute UTI: Code(s): N39.0 - Urinary tract infection, site not specified Status: Acute Assessment and Plan: UA; turbidity, 2+ Blood, Positive Nitrates, 3+ Leukocyte Esterase, >100 WBC's, 1+ Bacteria. Previous Urine culture reviewed and positive for Enterococcus, mostly Klebsiella. Both sensitive to Levaquin and started in ER. Continue Levaquin for now. Continue to trend labs and VS. Mentation normalized. (3) CKD stage 3a, GFR 45-59 ml/min: Code(s): N18.31 - Chronic kidney disease, stage 3a Status: Acute Assessment and Plan: Creatinine stabilizes, 1.8>>1.3 Continue to monitor closely. Avoid nephrotoxic agents. (4) Paroxysmal atrial fibrillation: Onset Date: ~10/2019 Code(s): I48.0 - Paroxysmal atrial fibrillation Status: Acute Assessment and Plan: Episodes of A-fib RVR previously with sepsis. Initial EKG on admission showed A-fib RVR 123. CRate controlled in the 80's now. Continue Metoprolol. Continue telemetry. (5) Essential hypertension: Code(s): I10 - Essential (primary) hypertension Status: Chronic Assessment and Plan: BP is stable on metoprolol. (6) OAB (overactive bladder): Code(s): N32.81 - Overactive bladder Status: Acute Assessment and Plan: Continue Oxybutynin. Plan Continue to follow cultures and adjust antibiotics as needed. Time Spent With Patient Time with patient: 15 - 25 minutes Subjective Date/time seen: 03/23/24 09:03 Interval history: called EMS stating the patient had been confused and he is normally alert and oriented x4. also informed EMS that patient normally gets like this when he has a urinary tract infection and he has been complaining of dysuria for the past few days. Patient takes Cephalexin chronically for UTI prevention her his urologist. Patient currently on bedrest stating feeling better and urinay frequency much improved. Reports having much urine output now. Review of Systems Review of Systems: All systems reviewed & are unremarkable except as noted in HPI and below Exam Narrative: Constitutional: Pleasant, elderly male patient, currently on bedrest in no acute distress. HEENT: Atraumatic and normocephalic. PERRL, EOMI,non icteric. Neck: Supple. No lymphadenopathy is present. No JVD. Respiratory: Lungs are clear bilaterally. Cardiovascular: RRR, no murmurs. GI: Soft, nontender, bowel sounds present x4 quads. Skin: [place], moist without jaundice. Patient has good turgor. There are no lesions, rashes. Neuro: Now alert and oriented x4. Nonfocal exam. Extremities: Warm and dry. There is no peripheral edema. Psych: Pleasant and co-operative. Objective Data Vital Signs Vital Signs: Vital Signs - 24 hr 03/22/24 11:57 03/22/24 12:00 03/22/24 12:00 Temperature Pulse Rate 106 H 120 H 116 H Respiratory Rate Blood Pressure 125/70 Pulse Oximetry Oxygen Delivery 03/22/24 14:57 03/22/24 16:00 03/22/24 20:05 Temperature 98.1 F 98.1 F Pulse Rate 67 97 61 Respiratory Rate 17 17 Blood Pressure 137/86 156/88 H Pulse Oximetry 99 98 Oxygen Delivery 03/22/24 20:29 03/22/24 20:00 03/22/24 20:00 Temperature Pulse Rate 96 90 Respiratory Rate Blood Pressure Pulse Oximetry Oxygen Delivery Room Air
[2024-03-23] MEDS: LATANOPROST 0.005% OP SOLN 2.5 ML BTL 1 DROP EACH EYE (20:45)
[2024-03-23] MEDS: TAMSULOSIN HCL 0.4 MG CAPSULE 0.8 MG PO (20:50)
[2024-03-23] MEDS: levoFLOXacin 750 MG/D5W 150 ML 750 MG/150 ML BAG 100 MG IVPB (20:53)
[2024-03-24] VITALS (8 sets, daily range): BP systolic 127–156; BP diastolic 75–88; PULSE 64–97; RESP 18–22; TEMP 36.1–36.6; O2SAT 96–98
[2024-03-24] MEDS: ENOXAPARIN 40 MG/0.4 ML SYRINGE SUB-Q (00:53)
--- NOTE | 2024-03-24 08:48 | P.PNIM_ITS ---
Progress Note: A&P Assessment and Plan (1) Sepsis: Code(s): A41.9 - Sepsis, unspecified organism Status: Acute Assessment and Plan: * Currently sepsis resolved. * On admission with evidence from labs and VS; suspected source as urine. * Sepsis protocol initiated on admission. * Pt receiving treatment for UTI with Levaquin previously per cultures. * BCx2 pending * Repeat lactic now normal. * Continue to trend and monitor labs and VS. * Continue telemetry for now. (2) Acute UTI: Code(s): N39.0 - Urinary tract infection, site not specified Status: Acute Assessment and Plan: * UA; turbidity, 2+ Blood, Positive Nitrates, 3+ Leukocyte Esterase, >100 WBC's, 1+ Bacteria. * Previous Urine culture reviewed and positive for Enterococcus, mostly Klebsiella. Both sensitive to Levaquin and started in ER. * Continue Levaquin for now. * Continue to follow cultures. * Mentation normalized. (3) Acute kidney injury superimposed on CKD: Code(s): N17.9 - Acute kidney failure, unspecified; N18.9 - Chronic kidney disease, unspecified Status: Acute Assessment and Plan: Possibly related to sepsis vs volume depletion vs other. * Improving with IVF hydration. * Creatinine stabilizing, 1.8>>1.3 * Discontinue IVF with improved renal function. * Continue to monitor closely off IVF. * Avoid nephrotoxic agents. (4) Paroxysmal atrial fibrillation: Onset Date: ~10/2019 Code(s): I48.0 - Paroxysmal atrial fibrillation Status: Acute Assessment and Plan: * Episodes of A-fib RVR previously with sepsis. * Initial EKG on admission showed A-fib RVR 123. * Rate controlled in the 80's now. * Continue Metoprolol. * Continue telemetry for now. (5) Essential hypertension: Code(s): I10 - Essential (primary) hypertension Status: Chronic Assessment and Plan: * BP is stable on metoprolol. (6) OAB (overactive bladder): Code(s): N32.81 - Overactive bladder Status: Acute Assessment and Plan: * Continue Oxybutynin. Plan Continue to follow cultures and adjust antibiotics as needed. Time Spent With Patient Time with patient: 25 - 35 minutes Subjective Date/time seen: 03/24/24 08:40 Interval history: called EMS stating the patient had been confused and he is normally alert and oriented x4. also informed EMS that patient normally gets like this when he has a urinary tract infection and he has been complaining of dysuria for the past few days. Patient takes Cephalexin chronically for UTI prevention her his urologist. Patient currently on bedrest stating feeling better and has good clear urine output. Denies any distressful symptoms. Review of Systems Review of Systems: All systems reviewed & are unremarkable except as noted in HPI and below Exam Narrative: Constitutional: Pleasant, elderly male patient, currently on bedrest in no acute distress. HEENT: Atraumatic and normocephalic. PERRL, EOMI,non icteric. Neck: Supple. No lymphadenopathy is present. No JVD. Respiratory: Lungs are clear bilaterally. Cardiovascular: RRR, no murmurs. GI: Soft, nontender, bowel sounds present x4 quads. Skin: [place], moist without jaundice. Patient has good turgor. There are no lesions, rashes. Neuro: Well oriented. CN II-XII grossly intact. Extremities: Warm and dry. There is no peripheral edema. Psych: Pleasant and co-operative. Objective Data Vital Signs Vital Signs:
--- NOTE | 2024-03-24 08:48 | PM.IMPN ---
Progress Note: A&P Assessment and Plan (1) Sepsis: Code(s): A41.9 - Sepsis, unspecified organism Status: Acute Assessment and Plan: Currently sepsis resolved. On admission with evidence from labs and VS; suspected source as urine. Sepsis protocol initiated on admission. Pt receiving treatment for UTI with Levaquin previously per cultures. BCx2 pending Repeat lactic now normal. Continue to trend and monitor labs and VS. Continue telemetry for now. (2) Acute UTI: Code(s): N39.0 - Urinary tract infection, site not specified Status: Acute Assessment and Plan: UA; turbidity, 2+ Blood, Positive Nitrates, 3+ Leukocyte Esterase, >100 WBC's, 1+ Bacteria. Previous Urine culture reviewed and positive for Enterococcus, mostly Klebsiella. Both sensitive to Levaquin and started in ER. Continue Levaquin for now. Continue to follow cultures. Mentation normalized. (3) Acute kidney injury superimposed on CKD: Code(s): N17.9 - Acute kidney failure, unspecified; N18.9 - Chronic kidney disease, unspecified Status: Acute Assessment and Plan: Possibly related to sepsis vs volume depletion vs other. Improving with IVF hydration. Creatinine stabilizing, 1.8>>1.3 Discontinue IVF with improved renal function. Continue to monitor closely off IVF. Avoid nephrotoxic agents. (4) Paroxysmal atrial fibrillation: Onset Date: ~10/2019 Code(s): I48.0 - Paroxysmal atrial fibrillation Status: Acute Assessment and Plan: Episodes of A-fib RVR previously with sepsis. Initial EKG on admission showed A-fib RVR 123. Rate controlled in the 80's now. Continue Metoprolol. Continue telemetry for now. (5) Essential hypertension: Code(s): I10 - Essential (primary) hypertension Status: Chronic Assessment and Plan: BP is stable on metoprolol. (6) OAB (overactive bladder): Code(s): N32.81 - Overactive bladder Status: Acute Assessment and Plan: Continue Oxybutynin. Plan Continue to follow cultures and adjust antibiotics as needed. Time Spent With Patient Time with patient: 25 - 35 minutes Subjective Date/time seen: 03/24/24 08:40 Interval history: called EMS stating the patient had been confused and he is normally alert and oriented x4. also informed EMS that patient normally gets like this when he has a urinary tract infection and he has been complaining of dysuria for the past few days. Patient takes Cephalexin chronically for UTI prevention her his urologist. Patient currently on bedrest stating feeling better and has good clear urine output. Denies any distressful symptoms. Review of Systems Review of Systems: All systems reviewed & are unremarkable except as noted in HPI and below Exam Narrative: Constitutional: Pleasant, elderly male patient, currently on bedrest in no acute distress. HEENT: Atraumatic and normocephalic. PERRL, EOMI,non icteric. Neck: Supple. No lymphadenopathy is present. No JVD. Respiratory: Lungs are clear bilaterally. Cardiovascular: RRR, no murmurs. GI: Soft, nontender, bowel sounds present x4 quads. Skin: [place], moist without jaundice. Patient has good turgor. There are no lesions, rashes. Neuro: Well oriented. CN II-XII grossly intact. Extremities: Warm and dry. There is no peripheral edema. Psych: Pleasant and co-operative. Objective Data Vital Signs Vital Signs: Vital Signs - 24 hr 03/23/24 08:55 03/23/24 09:03 03/23/24 12:00 Temperature Pulse Rate 85 75 Respiratory Rate Blood Pressure Pulse Oximetry Oxygen Delivery Room Air 03/23/24 14:05 03/23/24 16:25 03/23/24 20:50 Temperature 97.6 F Pulse Rate 72 62 62 Respiratory Rate 17 Blood Pressure 126/69 Pulse Oximetry 97 Oxygen Delivery 03/23/24 20:00 03/23/24 21:33 03/24/24 00:00 Temperature 97.5 F L Pulse Rate 65 85 65 Respiratory Rat
[2024-03-24] MEDS: DULoxetine HCL 30 MG CAPSULE.DR PO (09:37)
[2024-03-24] MEDS: BRIMONIDINE TARTRATE 0.2% OP SOLN 5 ML BTL 1 DROP EACH EYE (09:37)
[2024-03-24] MEDS: FOLIC ACID 1 MG TABLET PO (09:37)
[2024-03-24] MEDS: METOPROLOL TARTRATE 25 MG TABLET PO (09:37)
[2024-03-24] MEDS: oxyBUTYnin CHLORIDE XL 5 MG TAB.ER.24 10 MG PO (09:38)
[2024-03-24] MEDS: TIMOLOL MALEATE 0.5% OP SOLN 5 ML BOTTLE 1 DROP EACH EYE (09:38)
[2024-03-24] MEDS: POTASSIUM CITRATE 5 MEQ TAB CR 15 MEQ PO (09:38)
--- NOTE | 2024-03-24 14:37 | PM.DS ---
DS: Admitting Diagnosis Discharge Date 03/24/2024 Admitting Diagnosis Sepsis UTI DS: Discharge Diagnosis Discharge Diagnosis (1) Sepsis: Code(s): A41.9 - Sepsis, unspecified organism Status: Acute Assessment and Plan: Resolved. Treated with Levaquin IV. Blood cultures negative to date. Urine culture grew Pansensitive Klebs Pneumoniae. Patient will be discharged on Augmentin to complete antibiotics treatment. (2) Acute UTI: Code(s): N39.0 - Urinary tract infection, site not specified Status: Acute Assessment and Plan: Treated with Levaquin IV inpatient. Blood cultures negative to date. Urine culture grew Pansensitive Klebs Pneumoniae. Patient will be discharged on Augmentin to complete antibiotics treatment. (3) Acute kidney injury superimposed on CKD: Code(s): N17.9 - Acute kidney failure, unspecified; N18.9 - Chronic kidney disease, unspecified Status: Acute Assessment and Plan: Possibly related to sepsis vs volume depletion vs other. Resolved prior to discharge. (4) Paroxysmal atrial fibrillation: Onset Date: ~10/2019 Code(s): I48.0 - Paroxysmal atrial fibrillation Status: Acute Assessment and Plan: Episodes of A-fib RVR previously with sepsis. Initial EKG on admission showed A-fib RVR 123. Rate controlled in the 80's on Metoprolol inpatient. (5) Essential hypertension: Code(s): I10 - Essential (primary) hypertension Status: Chronic Assessment and Plan: BP is stable on metoprolol. (6) OAB (overactive bladder): Code(s): N32.81 - Overactive bladder Status: Acute Assessment and Plan: Continue Oxybutynin. Plan Continue to follow cultures and adjust antibiotics as needed. DS: Summary Hospital Course Reason for hospitalization: Altered Mental Status Hospital Course: Patient called EMS stating the patient had been confused and he is normally alert and oriented x4. also informed EMS that patient normally gets like this when he has a urinary tract infection, with the patient also complaining of dysuria. Patient was septic when he presented which was resolved per sepsis protocol with IVF and IV antibiotics. Patient has been treated with IV Levaquin inpatient per his previous cultures. His blood cultures were negative, with urine culture growing pansensitive Klebs. Pneumoniae. He's being discharged on Augmentin to complete the antibiotics treatment. He had STEVENSON possibly from sepsis vs volume depletion, and this resolved before discharge with IVF hydration. Patient's mentation has been wnl inpatient and all his other chronic conditions remained stable. He's medically stable for discharge with no acute distress noted or reported prior to discharge. Status at Discharge Functional status at discharge: independent ambulation Overall status at discharge: patient is back to baseline Time Spent with Patient Time attestation: Total time spent providing and/or coordinating discharge services: Time spent: Greater than 30 minutes Exam Narrative: Constitutional: Pleasant, elderly male patient, currently on chair in no acute distress. HEENT: Atraumatic and normocephalic. PERRL, EOMI,non icteric. Neck: Supple. No lymphadenopathy is present. No JVD. Respiratory: Lungs are clear bilaterally. Cardiovascular: RRR, no murmurs. GI: Soft, nontender, bowel sounds present x4 quads. Skin: [place], moist without jaundice. Patient has good turgor. There are no lesions, rashes. Neuro: Well oriented. CN II-XII grossly intact. Extremities: Warm and dry. There is no peripheral edema. Psych: Pleasant and co-operative. DS: Data Data Completed and Pending Labs on day of discharge: Preliminary micro results at discharge 03/21/24 20:38 Blood Culture - Preliminary Blood Discharge Plan Discharge Attending physician on discharge: Bhupinder Roy
== END 2024-03-24 15:24 | disposition home or self-care (01) | DRG 872 ==
LOC: ANHED 21:28 → ANH2MED 23:45
PROVIDERS: Nurse Practitioner Adult Health; Admitting Provider Internal Medicine; Emergency Provider Emergency Medicine; PCP Family Medicine; Visit Provider Nurse Practitioner Adult Health
DX: A41.9 Sepsis, unspecified organism (principal); N39.0 Urinary tract infection, site not specified; N17.9 Acute kidney failure, unspecified; B96.1 Klebsiella pneumoniae [K. pneumoniae] as the cause of diseases classified elsewhere; B95.2 Enterococcus as the cause of diseases classified elsewhere; H40.9 Unspecified glaucoma; I12.9 Hypertensive chronic kidney disease with stage 1 through stage 4 chronic kidney disease, or unspecified chronic kidney disease; N18.31 Chronic kidney disease, stage 3a; M10.9 Gout, unspecified; K76.0 Fatty (change of) liver, not elsewhere classified; N32.81 Overactive bladder; I48.0 Paroxysmal atrial fibrillation; M05.79 Rheumatoid arthritis with rheumatoid factor of multiple sites without organ or systems involvement; Z85.46 Personal history of malignant neoplasm of prostate; Z86.711 Personal history of pulmonary embolism; Z86.73 Personal history of transient ischemic attack (TIA), and cerebral infarction without residual deficits; Z90.49 Acquired absence of other specified parts of digestive tract; Z85.828 Personal history of other malignant neoplasm of skin; Z87.891 Personal history of nicotine dependence
CPT/HCPCS: 36415; 70450; 71045; 74176; 76775; 80053; 81001; 83605; 83735; 85025; 87040; 87077; 87086; 87088; 87186; 87636; 93005; 96361; 96365; 96375; 99285; A9270; J1650; J1885; J1956; J7030

== ENCOUNTER 2024-04-01 06:31 | Emergency (ER) | payer MEDICARE, SELFPAY ==
--- NOTE | ~2024-04-01 | XR_ITS ---
EXAMINATION: XR chest 1V DATE: 04/01/2024 09:56 INDICATION: Altered mental status. TECHNIQUE: A single frontal view of the chest was obtained. COMPARISON: Chest single view 03/21/2024 FINDINGS: There is mild atelectasis in left lower lung zone. No pleural effusion or pneumothorax. The heart size is normal. IMPRESSION: 1. Mild atelectasis in left lower lung zone. Reviewed, dictated and finalized at location A.
--- NOTE | ~2024-04-01 | CT_ITS ---
EXAMINATION: CT brain wo con DATE: 04/01/2024 09:48 INDICATION: Altered mental status. TECHNIQUE: Computed tomography (CT) of the head was performed without intravenous contrast. The mA wa s adjusted according to patient size. Iterative reconstruction technique was employed. The dose-lengt h product was 681.00 mGy-cm. COMPARISON: Head CT 03/21/2024 FINDINGS: There are scattered areas of low attenuation in the cerebral white matter. There is no intr acranial hemorrhage, acute infarction, or abnormal intracranial mass lesion. The ventricles are austin l in size. There is mild mucosal thickening in the paranasal sinuses. There are likely changes of lef t ocular lens replacement surgery. The mastoid air cells are normal. There is cerumen in the external auditory canals. IMPRESSION: 1. Stable moderate nonspecific cerebral white matter disease, which likely represents chronic small v essel ischemic disease. Reviewed, dictated and finalized at location A. IMPRESSION: 1. Stable moderate nonspecific cerebral white matter disease, which likely repr esents chronic small vessel ischemic disease.
[2024-04-01 06:37] VITALS: BP 138/78; PULSE 68; RESP 17; TEMP 36.4; O2SAT 98
[2024-04-01 07:39] VITALS: BP 105/73; PULSE 62; RESP 22; TEMP 36.6; O2SAT 92
--- NOTE | 2024-04-01 08:23 | ECG_ITS ---
Test Date: 2024-04-01 09:07:10 Measurements Intervals [place] Rate: 59 P: -2 SC: 220 QRS: 7 QRSD: 169 T: -24 QT: 439 QTc: 436 Interpretive Statements SINUS BRADYCARDIA WITH FIRST DEGREE AV BLOCK WITH FREQUENT SUPRAVENTRICULAR PREMATURE COMPLEXES RIGHT BUNDLE BRANCH BLOCK CONSIDER INFERIOR INFARCT, AGE INDETERMINATE ABNORMAL ECG Compared to ECG 03/21/2024 20:05:03 First degree AV block now present Atrial fibrillation no longer present Electronically Signed On 04-01-2024 09:10:14 CDT by Francisco Pérez D.O.
[2024-04-01 08:56] LABS: Basophils Absolute Auto 0.1 K/mm3 (0.0-0.1); Basophils Percent Auto 0.7 % (0.2-1.2); Eosinophils Absolute Auto 0.3 K/mm3 (0-0.3); Hematocrit 39.6 % (42.0-52.0); Hemoglobin 13.3 g/dL (14.0-18.0); Immature Granulocyte Absolute 0.04 K/mm3 (0.00-0.031); Immature Granulocyte Percent A 0.6 % (0-0.5); Lymphocytes Absolute Auto 0.51 K/mm3 (0.9-3.2); Lymphocytes Percent Auto 7.5 % (18.3-44.2); Mean Corpuscular HGB Conc 33.6 g/dl (32-36); Mean Corpuscular Hemoglobin 35.8 pg (26-34); Mean Corpuscular Volume 106.5 fl (80-100); Monocytes Absolute Auto 0.7 K/mm3 (0.1-0.6); Monocytes Percent Auto 9.9 % (2.6-8.5); Neutrophils Absolute Auto 5.2 K/mm3 (1.3-6.7); Neutrophils Percent Auto 77.3 % (45.5-73.1); Platelet Count Result 176 k/mm3 (150-375); Red Blood Count 3.72 M/mm3 (4.6-6.20); Red Cell Distribution Width 12.8 % (11.5-14.5); White Blood Count 6.8 K/mm3 (4.5-10.0)
[2024-04-01 09:03] LABS: Prothrombin Time 13.6 Seconds (11.1-14.7)
[2024-04-01 09:04] LABS: Partial Thromboplastin Time 25.9 Seconds (22.3-36.8)
[2024-04-01 09:09] LABS: Alanine Aminotransferase 39 U/L (6-50); Albumin Level 4.2 g/dL (3.5-5.1); Alkaline Phosphatase 62 U/L (38-126); Anion Gap 9 mmol/L (4-12); Aspartate Amino Transferase 36 U/L (17-59); Bilirubin,Total 0.4 mg/dL (0.2-1.3); Blood Urea Nitrogen 33 mg/dL (9-20); Calcium 9.1 mg/dL (8.4-10.2); Carbon Dioxide 25 mmol/L (22-30); Chloride 101 mmol/L (98-107); Estimated CRCL calculation 44 ml/min; Estimated Glomerular Filt Rate 45; Glucose 106 mg/dL (65-110); Potassium 4.2 mmol/L (3.4-5.0); Sodium 135 mmol/L (137-145)
[2024-04-01 09:31] VITALS: BP 110/64; PULSE 73; RESP 20
--- NOTE | 2024-04-01 09:35 | ED.AMS ---
HPI - Altered Mental Status General Chief Complaint: Urogenital-Male Stated Complaint: poss UTI/confusion Time Seen by Provider: 04/01/24 09:04 History of Present Illness HPI narrative: 78-year-old male with history of prediabetes, vitamin-D deficiency, RA, Hypertension, paroxysmal AFib, chronic venous insufficiency the lower extremities, PE not currently anticoagulated presents to the ED via EMS from home with his and daughter at bedside for transient confusion and concerns for UTI. Family states that the patient went to bed last night and normal states he woke up this morning confused. Patient's and daughter states that the patient was telling them he had to go to the bathroom and then walked past the bathroom which is abnormal. He will also make confused phrases. They states that in the past when he has acted like this he has become septic with UTIs which concerned them so they called EMS and he was transported to the ED for further evaluation. They state upon arrival the patient had reverted back to his normal mental status and has been acting at his baseline. The patient does not have any complaints. He denies fever, nausea vomiting, diarrhea, abdominal pain, chest pain or shortness of breath, dysuria or hematuria, headache, vision changes. Patient's family states that he has been complaining of lower back pain for several weeks now. When asked if the patient is current back pain he stated no. Related Data Home Medications Medication Instructions Recorded Confirmed cholecalciferol (vitamin D3) 125 250 mcg PO DAILY 11/18/22 03/22/24 mcg (5,000 unit) tablet (Vitamin D3) peg 400-propylene glycol 0.4 %-0.3 1 drp EACH EYE QID PRN Dry Eye(S) 11/19/22 03/22/24 % eye drops (Systane Ultra) tamsulosin 0.4 mg capsule 0.8 mg PO HS 02/16/23 03/22/24 folic acid 1 mg tablet 1 mg PO BID 03/14/23 03/22/24 potassium citrate 15 mEq (1,620 15 meq PO BID 03/14/23 03/22/24 mg) tablet,extended release travoprost 0.004 % eye drops 1 drp EACH EYE HS 03/14/23 03/22/24 brimonidine 0.2 %-timolol 0.5 % 1 drp EACH EYE Q12H 03/28/23 03/22/24 eye drops diclofenac sodium 1 % topical gel 2 g topical QID PRN Pain 07/30/23 03/22/24 mirabegron 25 mg tablet,extended 25 mg PO DAILY 07/30/23 03/22/24 release 24 hr (Myrbetriq) cephalexin 250 mg capsule 250 mg PO DAILY 09/10/23 03/22/24 acetaminophen 500 mg capsule 1,000 mg PO Q6H PRN Pain (Scale 03/22/24 03/22/24 Score 1-3) Allergies Allergy/AdvReac Type Severity Reaction Status Date / Time No Known Drug Allergies Allergy Mild unknown Verified 04/01/24 06:32 Review of Systems Review of Systems: All systems reviewed & are unremarkable except as noted in HPI and below PMFSH Past Medical History Medical History Acute pyelonephritis (~03/2023) Bacteremia (~10/2019) UTI with bacteremia, CNSS not saprophyticus. 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 Kidney stones Left ureteral stone Osteoarthritis Overactive bladder Paroxysmal atrial fibrillation (~10/2019) associated with sepsis Pre-diabetes Hemoglobin A1c was 6.3% in April 2019. Prostate cancer Pulmonary embolism 02/[address] scan performed for staging of prostate cancer bilateral lower lobe and middle lobe pulmonary embolism Recurrent kidney stones Recurrent UTI Retinal vein occlusion of left eye Rheumatoid arthritis with rheumatoid factor of multiple sites without organ or systems involvement Transient ischemic attack (~2014) Ureteral stone with hydronephrosis (~10/2022) Ureterolithiasis Vitamin D deficiency Surgical History Surgical Histo
--- NOTE | 2024-04-01 10:24 | PC.NURSE ---
lab notified of additional lab orders.
[2024-04-01 10:25] LABS: Add Urine Microscopic? YES; Appearance Urine Clear (Clear); Bacteria Urine None Seen /hpf; Bilirubin Urine Negative (Negative); Blood Urine Negative (Negative); Color Urine Yellow (Yellow); Glucose Urine UA Negative (Negative); Ketones Urine Negative (Negative); Leukocyte Esterase Ur Negative LEU/UL (Negative); Nitrate Urine Negative (Negative); Non Pathogenic Casts 0-2; Protein Urine Trace mg/dL (Negative); RBC Urine 0-2 /hpf (0-2); Specific Grav Ur 1.017 (1.001-1.035); Squamous Epithelial Cell Urine None Seen /hpf (Few); Urobilinogen Urine 0.2 mg/dL (<2.0); WBC Urine 0-5 /hpf (0-3)
[2024-04-01 10:41] VITALS: BP 110/68; PULSE 64; RESP 18; TEMP 36.6; O2SAT 98
[2024-04-01 11:36] VITALS: BP 103/71; PULSE 56; RESP 16; O2SAT 95
== END 2024-04-01 11:38 | disposition home or self-care (01) ==
PROVIDERS: Student in an Organized Health Care Education/Training Program; Emergency Provider Physician Assistant; PCP Family Medicine
DX: R41.0 Disorientation, unspecified (principal); I12.9 Hypertensive chronic kidney disease with stage 1 through stage 4 chronic kidney disease, or unspecified chronic kidney disease; N18.31 Chronic kidney disease, stage 3a; I87.2 Venous insufficiency (chronic) (peripheral); I48.0 Paroxysmal atrial fibrillation; E55.9 Vitamin D deficiency, unspecified; H40.9 Unspecified glaucoma; N32.81 Overactive bladder; M10.9 Gout, unspecified; M19.90 Unspecified osteoarthritis, unspecified site; M05.79 Rheumatoid arthritis with rheumatoid factor of multiple sites without organ or systems involvement; R73.03 Prediabetes; Z86.711 Personal history of pulmonary embolism; Z86.16 Personal history of COVID-19; Z87.440 Personal history of urinary (tract) infections; Z85.46 Personal history of malignant neoplasm of prostate; Z86.73 Personal history of transient ischemic attack (TIA), and cerebral infarction without residual deficits; Z87.442 Personal history of urinary calculi; Z86.010 Personal history of colon polyps; Z85.828 Personal history of other malignant neoplasm of skin; Z87.891 Personal history of nicotine dependence; Z98.42 Cataract extraction status, left eye; R00.1 Bradycardia, unspecified; I44.0 Atrioventricular block, first degree; I49.1 Atrial premature depolarization; I45.10 Unspecified right bundle-branch block; R94.31 Abnormal electrocardiogram [ECG] [EKG]; R90.82 White matter disease, unspecified
CPT/HCPCS: 36415; 70450; 71045; 80053; 81001; 84443; 85025; 85610; 85730; 93005; 99284

== ENCOUNTER 2024-04-09 19:15 | Inpatient (IN) | payer MEDICARE, SELFPAY ==
--- NOTE | ~2024-04-09 | US_ITS ---
EXAMINATION: US renal BI DATE: 04/10/2024 15:53 INDICATION: Acute kidney injury. TECHNIQUE: Multiple ultrasound grayscale images of the kidneys were obtained. COMPARISON: Ultrasound 03/22/2024, CT abdomen and pelvis 03/21/2024 FINDINGS: The right kidney measures 12.6 x 6.6 x 5.4 cm. The left kidney measures 11.9 x 5.4 x 5.4 cm. The kidn eys demonstrate normal parenchymal echogenicity. There is a 2.0 cm cyst in right kidney. There is no hydronephrosis. The bladder is normal. IMPRESSION: 1. Normal kidney sizes. No hydronephrosis. Reviewed, dictated and finalized at location A.
--- NOTE | ~2024-04-09 | CT_ITS ---
CT brain wo con Ordering provider: Sydney Gee MD History: 78 years Male with . Confusion . Comparison: April 01, 2024 Technique: CT of the head without contrast. Radiation reduction technique utilized.The dose-length product was 1135 mGy-cm FINDINGS: BRAIN PARENCHYMA AND CSF SPACES: Mild leukoaraiosis and diffuse cortical atrophy. Mild atheromatous d isease. No midline shift, mass effect or hemorrhage. The brain parenchyma and CSF spaces are otherwi se normal. VISUALIZED PARANASAL SINUSES: Well aerated. MASTOIDS: Well aerated. BONES: The bones appear intact. SOFT TISSUES: Visualized nasopharynx is normal. Superficial soft tissues are normal. IMPRESSION: No acute intracranial findings. Reviewed, dictated and finalized at location A.
[2024-04-09 19:16] VITALS: BP 136/64; PULSE 122; RESP 15; TEMP 36.6; O2SAT 97
--- NOTE | 2024-04-09 19:23 | ECG_ITS ---
Test Date: 2024-04-09 19:27:55 Measurements Intervals [place] Rate: 113 P: 57 [place]: 216 QRS: 26 QRSD: 162 T: -23 QT: 364 QTc: 500 Interpretive Statements SINUS TACHYCARDIA WITH FIRST DEGREE AV BLOCK WITH FREQUENT ATRIAL PREMATURE COMPLEXES RIGHT BUNDLE BRANCH BLOCK INFERIOR INFARCT, AGE INDETERMINATE BASELINE ARTIFACT- I, II, AVR ABNORMAL ECG Compared to ECG 04/01/2024 09:07:10 HEART RATE HAS INCREASED Electronically Signed On 04-10-2024 05:37:04 CDT by Francisco Pérez D.O.
--- NOTE | 2024-04-09 19:33 | ED.AMS ---
HPI - Altered Mental Status General Chief Complaint: Altered Mental Status Stated Complaint: altered mental status Time Seen by Provider: 04/09/24 19:16 Source: family and EMS History of Present Illness HPI narrative: 78 years old white male lives with his came to the ED by ambulance from home complaining of confusion, general weakness inability to get up without pharmacy assistant few hours prior to arrival. Patient had similar symptoms secondary to urinary tract infection, urine culture March 21 is came back positive for Klebsiella pneumonia sensitive to Rocephin Related Data Home Medications Medication Instructions Recorded Confirmed cholecalciferol (vitamin D3) 125 250 mcg PO DAILY 11/18/22 03/22/24 mcg (5,000 unit) tablet (Vitamin D3) peg 400-propylene glycol 0.4 %-0.3 1 drp EACH EYE QID PRN Dry Eye(S) 11/19/22 03/22/24 % eye drops (Systane Ultra) tamsulosin 0.4 mg capsule 0.8 mg PO HS 02/16/23 03/22/24 folic acid 1 mg tablet 1 mg PO BID 03/14/23 03/22/24 potassium citrate 15 mEq (1,620 15 meq PO BID 03/14/23 03/22/24 mg) tablet,extended release travoprost 0.004 % eye drops 1 drp EACH EYE HS 03/14/23 03/22/24 brimonidine 0.2 %-timolol 0.5 % 1 drp EACH EYE Q12H 03/28/23 03/22/24 eye drops diclofenac sodium 1 % topical gel 2 g topical QID PRN Pain 07/30/23 03/22/24 mirabegron 25 mg tablet,extended 25 mg PO DAILY 07/30/23 03/22/24 release 24 hr (Myrbetriq) cephalexin 250 mg capsule 250 mg PO DAILY 09/10/23 03/22/24 acetaminophen 500 mg capsule 1,000 mg PO Q6H PRN Pain (Scale 03/22/24 03/22/24 Score 1-3) Allergies Allergy/AdvReac Type Severity Reaction Status Date / Time No Known Drug Allergies Allergy Mild unknown Verified 04/01/24 06:32 Review of Systems Review of Systems: ROS unobtainable: Yes unobtainable due to medical condition and unobtainable due to mental status PMFSH Past Medical History Medical History Acute pyelonephritis (~03/2023) Bacteremia (~10/2019) UTI with bacteremia, CNSS not saprophyticus. 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 Kidney stones Left ureteral stone Osteoarthritis Overactive bladder Paroxysmal atrial fibrillation (~10/2019) associated with sepsis Pre-diabetes Hemoglobin A1c was 6.3% in April 2019. 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 History of appendectomy (~1957) History of cystoscopy (~05/2022) cystoscopy, left retrograde pyelography and left ureteral stent placement History of glaucoma tube shunt procedure (~06/2023) Left History of left cataract surgery (~2009) History of lithotripsy (~02/2023) Cystoscopy, left ureteroscopy with laser lithotripsy, stone extraction stent placement History of lithotripsy (~08/2022) Cystoscopy, left retrograde pyelography, left ureteroscopy with laser lithotripsy and stone extraction, left ureteral stent replacement History of ureter stent (~10/2022) cystoscopy, left retrograde pyelogram and placement of left 6fr variable length stent History of ureter stent (~03/2023) Cystoscopy, left ureteroscopy with stone extraction and left ureteral stent placement Hx of lithotripsy (~04/2022) Left ESWL Family History Family History Father Diabetes mellitus Acute myocardial infarction Heart disease Hypertension Social History Social History Social History: The patient lives in [place] with his . They have 3 sons and 1 daughter. He smoked up to 3 packs of cigarettes per day and quit 1995. No alcohol or drug abuse. 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 [employer] Code status: Full code Surrogate decision maker: Dariusz () Smoking packs per day: 3 Smoking cigarettes per day: 60.0 Years smoked: 34 Smoking pack-years: 102.00 Smoking status: Former smoker Tobacco type: cigarettes Second hand tobacco smoke exposure: No Smoking end date: 07/23/83 Additional smoking assessment comments: pt states he started smoking at age 20 Alcohol intake: former Alcohol use details: occasional glass of wine Substance use: never Substance use type: does not use Do You Feel Safe in your Home?: Yes Lack of Transportation: No Lack of Food: Never True Current Housing: I Have Housing Concerned About Future Housing: No Difficulty Paying Gas/Electric Bills: No Difficulty Paying for Meds: No Currently Unemployed: No Education: Associate Degree Difficulty w/ Childcare or Family Care: No Living arrangements: with family Additional living arrangements comments: - D[facility]US[facility] Gender identity (if verbalized by the patient): Male Sexual Orientation (if Verbalized by the Patient): Straight or Heterosexual Spiritual care concerns: No Agree to blood products: Yes Exam Narrative: General appearance: Well-developed, well-nourished, looks ill Skin: Normal color Head: Normocephalic, nontraumatic Eyes: Clear conjunctiva ENT: Oropharynx normal, ears normal, nose normal Neck: Supple, nontender Chest and respiratory: Airway patent, no respiratory distress, no accessory muscle use Heart: Regular rate/rhythm Abdomen: Soft, nontender, no organomegaly, quiet bowel sounds Vascular: Normal peripheral pulses, normal capillary refill. 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 as tested, no gross motor deficit Course Course Emergency Course: Vital Signs Vital signs: Vital Signs Temperature 36.6 C 04/09/24 19:16 Pulse Rate 122 H 04/09/24 19:16 Respiratory Rate 15 04/09/24 19:16 Blood Pressure 136/64 04/09/24 19:16 Pulse Oximetry 97 04/09/24 19:16 Oxygen Delivery Room Air 04/09/24 19:16 Temperature 36.6 C 04/09/24 19:16 Pulse Rate 122 H 04/09/24 19:16 Respiratory Rate 15 04/09/24 19:16 Blood Pressure 136/64 04/09/24 19:16 Pulse Oximetry 97 04/09/24 19:16 Oxygen Delivery Room Air 04/09/24 19:16 MDM - Altered Mental Status MDM Narrative Medical decision making narrative: Patient came with sudden onset of confusion, delusion, hallucination and weakness. Patient had similar symptoms in the past secondary to urinary tract infection and was associated with sepsis Vital signs showed pulse of 122 on arrival to the ED, normal temperature and normal blood pressure Physical examination showed awake patient, confused, restless with dry oral cavity Differential diagnosis include urinary tract infection, dehydration, electrolyte imbalance, CVA Blood workup today showed WBC of 11.0 creatinine of 1.7 which seems like getting worse over the last couple visits Urinalysis showed evidence of infection CT head showed no acute abnormality Patient received 1 L of normal saline, 1 g of Rocephin IV, last urine culture March 21, 2024 came back positive for a Klebsiella pneumonia which is sensitive to Rocephin. Differential Diagnosis Differential diagnosis: Likely other (Dehydration, electrolyte imbalance, urinary tract infection, CVA) Medical Records Attestation: I reviewed the patient's medical records. Lab Data Attestation: I reviewed the patient's lab results. 04/09/24 19:31 04/09/24 19:31 Labs: Lab Results 04/09/24 Range/Units 19:31 WBC 11.0 H (4.5-10.0) K/mm3 RBC 3.84 L (4.6-6.20) M/mm3 Hgb 13.8 L (14.0-18.0) g/dL Hct 40.2 L (42.0-52.0) % MCV 104.7 H (80-100) fl MCH 35.9 H (26-34) pg MCHC 34.3 (32-36) g/dl RDW 12.9 (11.5-14.5) % Plt Count 187 (150-375) k/mm3 MPV 9.0 (7.4-10.4) fl Immature Gran % (Auto) 0.3 (0-0.5) % Neut % (Auto) 86.7 H (45.5-73.1) % Lymph % (Auto) 3.7 L (18.3-44.2) % [place] % (Auto) 8.5 (2.6-8.5) % Eos % (Auto) 0.3 (0-4.4) % Baso % (Auto) 0.5 (0.2-1.2) % Lymph # (Auto) 0.41 L (0.9-3.2) K/mm3 [place] # (Auto) 0.9 H (0.1-0.6) K/mm3 Eos # (Auto) 0.0 (0-0.3) K/mm3 Baso # (Auto) 0.1 (0.0-0.1) K/mm3 Abs Immat Gran (auto) 0.03 (0.00-0.031) K/mm3 Absolute Neuts (auto) 9.5 H (1.3-6.7) K/mm3 Absolute Nucleated RBC 0.000 (0.0-0.012) K/mm3 Nucleated RBC % 0.0 (0.0-0.2) % PT 14.0 (11.1-14.7) Seconds INR 1.1 APTT 25.6 (22.3-36.8) Seconds Sodium 136 L (137-145) mmol/L Potassium 4.4 (3.4-5.0) mmol/L Chloride 100 (98-107) mmol/L Carbon Dioxide 23 (22-30) mmol/L Anion Gap 13 H (4-12) mmol/L BUN 27 H (9-20) mg/dL Creatinine 1.70 H (0.7-1.3) mg/dL Estim Creat Clear Calc 34 ml/min Estimated GFR 39 L (59 - ) Glucose 140 H (65-110) mg/dL Calcium 9.2 (8.4-10.2) mg/dL Total Bilirubin 0.8 (0.2-1.3) mg/dL AST 26 (17-59) U/L ALT 27 (6-50) U/L Alkaline Phosphatase 60 (38-126) U/L Total Protein 8.0 (6.3-8.2) g/dL Albumin 4.3 (3.5-5.1) g/dL Urine Color Yellow (Yellow) Urine Appearance Turbid H (Clear) Urine pH 5.5 (5.0-9.0) Ur Specific [place] 1.015 (1.001-1.035) Urine Protein 3+ H (Negative) mg/dL Urine Glucose (UA) Negative (Negative) mg/dL Urine Ketones Trace H (Negative) mg/dL Ur Blood (Man) 2+ H (Negative) Urine Nitrate Negative (Negative) Urine Bilirubin Negative (Negative) Urine Urobilinogen 0.2 (<2.0) mg/dL Leukocyte Esterase Rfl 3+ H (Negative) ARASH/UL Urine RBC 3-5 H (0-2) /hpf Urine WBC >100 H (0-3) /hpf Ur Squamous Epith Cells None seen (Few) /hpf Urine Bacteria 4+ H /hpf Urine Casts 0-2 Imaging Data Radiologist's impression: Impressions Head CT 04/09/24 21:00 IMPRESSION: No acute intracranial findings. Critical Care Time Critical Care Time Critical Care Time: No Discharge Plan Discharge Patient Disposition: Still a Patient Prescriptions: No Action cephalexin 250 mg capsule 250 mg PO DAILY Myrbetriq 25 mg tablet extended release 24 hr 25 mg PO DAILY diclofenac sodium 1 % gel 2 g topical QID PRN (Reason: Pain) hydroxychloroquine 200 mg tablet 400 mg PO DAILY Qty: 180 1RF duloxetine 30 mg capsule,delayed release(DR/EC) 30 mg PO BID Qty: 60 4RF travoprost 0.004 % drops 1 drp EACH EYE HS folic acid 1 mg tablet 1 mg PO BID potassium citrate 15 mEq tablet extended release 15 meq PO BID brimonidine-timolol 0.2-0.5 % drops 1 drp EACH EYE Q12H acetaminophen 500 mg capsule 1,000 mg PO Q6H PRN (Reason: Pain (Scale Score 1-3)) amoxicillin-pot clavulanate [Augmentin] 500-125 mg tablet 1 tablet PO Q12H Qty: 8 0RF cholecalciferol (vitamin D3) [Vitamin D3] 125 mcg (5,000 unit) Tablet 250 mcg PO DAILY Systane Ultra 0.4-0.3 % Drops 1 drp EACH EYE QID PRN (Reason: Dry Eye(S)) tamsulosin 0.4 mg capsule 0.8 mg PO HS oxybutynin chloride 10 mg tablet extended release 24hr 10 mg PO DAILY Qty: 90 1RF metoprolol tartrate 50 mg tablet 50 mg PO BID Qty: 180 1RF lisinopril 10 mg tablet 10 mg PO DAILY Qty: 90 1RF Follow-up/Referrals: Bubba Cho MD [Primary Care Provider] -
[2024-04-09 20:05] LABS: Basophils Absolute Auto 0.1 K/mm3 (0.0-0.1); Basophils Percent Auto 0.5 % (0.2-1.2); Eosinophils Percent Auto 0.3 % (0-4.4); Hematocrit 40.2 % (42.0-52.0); Hemoglobin 13.8 g/dL (14.0-18.0); Immature Granulocyte Absolute 0.03 K/mm3 (0.00-0.031); Immature Granulocyte Percent A 0.3 % (0-0.5); Lymphocytes Absolute Auto 0.41 K/mm3 (0.9-3.2); Lymphocytes Percent Auto 3.7 % (18.3-44.2); Mean Corpuscular HGB Conc 34.3 g/dl (32-36); Mean Corpuscular Hemoglobin 35.9 pg (26-34); Mean Corpuscular Volume 104.7 fl (80-100); Monocytes Absolute Auto 0.9 K/mm3 (0.1-0.6); Monocytes Percent Auto 8.5 % (2.6-8.5); Neutrophils Absolute Auto 9.5 K/mm3 (1.3-6.7); Neutrophils Percent Auto 86.7 % (45.5-73.1); Platelet Count Result 187 k/mm3 (150-375); Red Blood Count 3.84 M/mm3 (4.6-6.20); Red Cell Distribution Width 12.9 % (11.5-14.5)
[2024-04-09 20:10] LABS: Alanine Aminotransferase 27 U/L (6-50); Albumin Level 4.3 g/dL (3.5-5.1); Alkaline Phosphatase 60 U/L (38-126); Anion Gap 13 mmol/L (4-12); Aspartate Amino Transferase 26 U/L (17-59); Bilirubin,Total 0.8 mg/dL (0.2-1.3); Blood Urea Nitrogen 27 mg/dL (9-20); Calcium 9.2 mg/dL (8.4-10.2); Carbon Dioxide 23 mmol/L (22-30); Chloride 100 mmol/L (98-107); Estimated CRCL calculation 34 ml/min; Estimated Glomerular Filt Rate 39; Glucose 140 mg/dL (65-110); Potassium 4.4 mmol/L (3.4-5.0); Sodium 136 mmol/L (137-145)
[2024-04-09 20:11] LABS: INR 1.1
[2024-04-09 20:12] LABS: Partial Thromboplastin Time 25.6 Seconds (22.3-36.8)
[2024-04-09 20:25] LABS: Add Urine Microscopic? YES; Appearance Urine Turbid (Clear); Bacteria Urine 4+ /hpf; Bilirubin Urine Negative (Negative); Blood Urine 2+ (Negative); Color Urine Yellow (Yellow); Glucose Urine UA Negative (Negative); Ketones Urine Trace mg/dL (Negative); Leukocyte Esterase Ur 3+ LEU/UL (Negative); Nitrate Urine Negative (Negative); Non Pathogenic Casts 0-2; Protein Urine 3+ mg/dL (Negative); Specific Grav Ur 1.015 (1.001-1.035); Squamous Epithelial Cell Urine None Seen /hpf (Few); Urobilinogen Urine 0.2 mg/dL (<2.0); WBC Urine >100 /hpf (0-3); pH Urine 5.5 (5.0-9.0)
[2024-04-09 21:09] VITALS: BP 132/68; PULSE 104; RESP 15; O2SAT 100
[2024-04-09] MEDS: SODIUM CHLORIDE 0.9% IV 1,000 ML 999 ML IV CONT (21:29)
[2024-04-09 21:57] VITALS: PULSE 104; RESP 15; O2SAT 97
[2024-04-09] MEDS: SODIUM CHLORIDE 0.9% IV 1,000 ML 125 ML IV CONT (22:05)
[2024-04-09 22:15] LABS: Lactic Acid Reflex 2.8 mmol/L (0.7-2.0)
--- NOTE | 2024-04-09 22:39 | ADMGEN ---
This patient, Shant Zaman, was admitted to Medical Room 258-01. Patient/family oriented to hospital policies and general routines including ID bracelet, bed and alarms, visiting hours, pain management, procedures, bathroom and other care routines, personal items, smoking policy, room service/diet, and visiting hours. Information on how to activate the Rapid Response Team has been discussed. Patient/Family are encouraged to report perceived risks to care and to ask questions if they do not understand what they are told or what they should do.
--- NOTE | 2024-04-09 22:41 | PM.IMHP ---
H&P: HPI History of Present Illness Date/Time: 04/09/24 22:41 Chief Complaint: Altered mental status Narrative: Mr. Zmaan is a 78-year-old male who is chronically ill. He lives at home with . He is brought in by his son with complaint of altered mental status just prior to admission on 04/09/2024. The patient was last admitted with UTI with sepsis in February 2024. He has recurrent UTIs. His urologist is Dr. Walker. he carries multiple comorbidities including CKD stage IIIA, hypertension, chronic venous insufficiency of lower extremities, gout, glaucoma, hepatic steatosis. the history is taken by the ER physician and his son. The day prior to admission the patient was found on the floor because he was weak. He was apparently A&O x3. The morning of admission the patient was A&O x3. He has no definite diagnosis of dementia although he becomes encephalopathic whenever he gets a UTI. In afternoon he was found to be more more confused. [facility] evaluation demonstrated tachycardia with a pulse rate of 104, temperature 98? F, respiratory rate 15, pulse oximetry 100% on room air, blood pressure 132/68. Lab workup revealed WBC 11, sodium 136, anion gap 13, lactic acid 2.8, BUN 27, serum creatinine 1.7, glucose 140. Urinalysis with turbid appearance of urine, 3+ protein, trace ketones, 2+ blood, 3+ leukocyte esterase, greater than 100 wbc's, 4+ bacteria. The patient was then administered 1 L of normal saline bolus and placed on a continuous infusion. He was given ceftriaxone 1 g. Blood cultures were taken. Urine cultures pending. Review of Systems Review of Systems: All systems reviewed & are unremarkable except as noted in HPI and below ( Subjective) [facility] Past Medical History Medical History Acute pyelonephritis (~03/2023) Bacteremia (~10/2019) UTI with bacteremia, CNSS not saprophyticus. 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 Kidney stones Left ureteral stone Osteoarthritis Overactive bladder Paroxysmal atrial fibrillation (~10/2019) associated with sepsis Pre-diabetes Hemoglobin A1c was 6.3% in April 2019. 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 History of appendectomy (~1957) History of cystoscopy (~05/2022) cystoscopy, left retrograde pyelography and left ureteral stent placement History of glaucoma tube shunt procedure (~06/2023) Left History of left cataract surgery (~2009) History of lithotripsy (~02/2023) Cystoscopy, left ureteroscopy with laser lithotripsy, stone extraction stent placement History of lithotripsy (~08/2022) Cystoscopy, left retrograde pyelography, left ureteroscopy with laser lithotripsy and stone extraction, left ureteral stent replacement History of ureter stent (~10/2022) cystoscopy, left retrograde pyelogram and placement of left 6fr variable length stent History of ureter stent (~03/2023) Cystoscopy, left ureteroscopy with stone extraction and left ureteral stent placement Hx of lithotripsy (~04/2022) Left ESWL Family History Family History Father Diabetes mellitus Acute myocardial infarction Heart disease Hypertension Social History Social History Social History: The patient lives in [place] with his . They have 3 sons and 1 daughter. He smoked up to 3 packs of cigarettes per day and quit 1995. No alcohol or drug abuse. 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 [employer] Code status: Full code Surrogate decision maker: Vandana () Smoking packs per day: 3 Smoking cigarettes per day: 60.0 Years smoked: 34 Smoking pack-years: 102.00 Smoking status: Former smoker Tobacco type: cigarettes Second hand tobacco smoke exposure: No Smoking end date: 07/23/83 Additional smoking assessment comments: pt states he started smoking at age 20 Alcohol intake: former Alcohol use details: occasional glass of wine Substance use: never Substance use type: does not use Do You Feel Safe in your Home?: Yes Lack of Transportation: No Lack of Food: Never True Current Housing: I Have Housing Concerned About Future Housing: No Difficulty Paying Gas/Electric Bills: No Difficulty Paying for Meds: No Currently Unemployed: No Education: Associate Degree Difficulty w/ Childcare or Family Care: No Living arrangements: with family Additional living arrangements comments: - [place] Gender identity (if verbalized by the patient): Male Sexual Orientation (if Verbalized by the Patient): Straight or Heterosexual Spiritual care concerns: No Agree to blood products: Yes Meds Home Medications and Allergies Home Medications Medication Instructions Recorded Confirmed Type cholecalciferol (vitamin D3) 125 250 mcg PO DAILY 11/18/22 03/22/24 History mcg (5,000 unit) tablet (Vitamin D3) peg 400-propylene glycol 0.4 %-0.3 1 drp EACH EYE QID PRN Dry Eye(S) 11/19/22 03/22/24 History % eye drops (Systane Ultra) tamsulosin 0.4 mg capsule 0.8 mg PO HS 02/16/23 03/22/24 History folic acid 1 mg tablet 1 mg PO BID 03/14/23 03/22/24 History potassium citrate 15 mEq (1,620 15 meq PO BID 03/14/23 03/22/24 History mg) tablet,extended release travoprost 0.004 % eye drops 1 drp EACH EYE HS 03/14/23 03/22/24 History brimonidine 0.2 %-timolol 0.5 % 1 drp EACH EYE Q12H 03/28/23 03/22/24 History eye drops diclofenac sodium 1 % topical gel 2 g topical QID PRN Pain 07/30/23 03/22/24 History mirabegron 25 mg tablet,extended 25 mg PO DAILY 07/30/23 03/22/24 History release 24 hr (Myrbetriq) cephalexin 250 mg capsule 250 mg PO DAILY 02/19/24 08/31/24 History oxybutynin chloride 10 mg 10 mg PO DAILY #90 tabs 10/02/23 03/22/24 Rx tablet,extended release 24 hr metoprolol tartrate 50 mg tablet 50 mg PO BID #180 tabs 11/12/23 03/22/24 Rx lisinopril 10 mg tablet 10 mg PO DAILY #90 tabs 11/19/23 03/22/24 Rx duloxetine 30 mg capsule,delayed 30 mg PO BID #60 caps 11/29/23 03/22/24 Rx release hydroxychloroquine 200 mg tablet 400 mg PO DAILY #180 tabs 11/29/23 03/22/24 Rx acetaminophen 500 mg capsule 1,000 mg PO Q6H PRN Pain (Scale 03/22/24 03/22/24 History Score 1-3) amoxicillin 500 mg-potassium 1 tablet PO Q12H #8 tabs 03/24/24 Rx clavulanate 125 mg tablet (Augmentin) Allergies Allergy/AdvReac Type Severity Reaction Status Date / Time No Known Drug Allergies Allergy Mild unknown Verified 04/01/24 06:32 Vital Signs Vital Signs - 24 hr 04/09/24 19:16 04/09/24 21:09 04/09/24 21:57 Temperature 98 F Pulse Rate 122 H 104 H 104 H Respiratory Rate 15 15 15 Blood Pressure 136/64 132/68 Pulse Oximetry 97 100 97 Oxygen Delivery Room Air Exam Const: General: comfortable and no acute distress Other: A&O x1. Incoherent. Eyes: Pupils: Equal, round and reactive pupils present Neck: Neck: supple Resp: Effort & Inspection: normal respiratory effort Auscultation: clear to auscultation bilaterally Cardio: Rate: regular rate Rhythm: regular rhythm GI: GI Palp: Yes Soft to palpation and No Tenderness to palpation present (GI) : General: Yes bladder normal to palpation Urinary Catheter: Urinary Catheter: urine cloudy Extrem: Other: Trace pitting edema bilateral lower extremities H&P: Results Labs Labs: Short CBC 04/09/24 Range/Units 19:31 WBC 11.0 H (4.5-10.0) K/mm3 Hgb 13.8 L (14.0-18.0) g/dL Hct 40.2 L (42.0-52.0) % Plt Count 187 (150-375) k/mm3 BMP 04/09/24 19:31 Sodium 136 L Potassium 4.4 Chloride 100 Carbon Dioxide 23 BUN 27 H Creatinine 1.70 H Glucose 140 H Calcium 9.2 Liver Function 04/09/24 Range/Units 19:31 Total Bilirubin 0.8 (0.2-1.3) mg/dL AST 26 (17-59) U/L ALT 27 (6-50) U/L Alkaline Phosphatase 60 (38-126) U/L Albumin 4.3 (3.5-5.1) g/dL Urine 04/09/24 Range/Units 19:31 Urine Color Yellow (Yellow) Urine Appearance Turbid H (Clear) Urine pH 5.5 (5.0-9.0) Ur Specific [place] 1.015 (1.001-1.035) Urine Protein 3+ H (Negative) mg/dL Urine Glucose (UA) Negative (Negative) mg/dL Assessment and Plan Assessment and plan (1) Urinary tract infection: Code(s): N39.0 - Urinary tract infection, site not specified Status: Acute (2) Acute alteration in mental status: Code(s): R41.82 - Altered mental status, unspecified Status: Acute (3) Acute kidney injury superimposed on CKD: Code(s): N17.9 - Acute kidney failure, unspecified; N18.9 - Chronic kidney disease, unspecified Status: Acute (4) Sepsis: Code(s): A41.9 - Sepsis, unspecified organism Status: Acute (5) Lactic acidosis: Code(s): E87.20 - Acidosis, unspecified Status: Resolved Plan Mr. Zaman is a 78-year-old male who is chronically ill. He lives at home with . He is brought in by his son with complaint of altered mental status just prior to admission on 04/09/2024. The patient was last admitted with UTI with sepsis in February 2024. He has recurrent UTIs. His urologist is Dr. Walker. he carries multiple comorbidities including CKD stage IIIA, hypertension, chronic venous insufficiency of lower extremities, gout, glaucoma, hepatic steatosis. the history is taken by the ER physician and his son. The day prior to admission the patient was found on the floor because he was weak. He was apparently A&O x3. The morning of admission the patient was A&O x3. He has no definite diagnosis of dementia although he becomes encephalopathic whenever he gets a UTI. In afternoon he was found to be more more confused. [facility] evaluation demonstrated tachycardia with a pulse rate of 104, temperature 98? F, respiratory rate 15, pulse oximetry 100% on room air, blood pressure 132/68. Lab workup revealed WBC 11, sodium 136, anion gap 13, lactic acid 2.8, BUN 27, serum creatinine 1.7, glucose 140. Urinalysis with turbid appearance of urine, 3+ protein, trace ketones, 2+ blood, 3+ leukocyte esterase, greater than 100 wbc's, 4+ bacteria. The patient was then administered 1 L of normal saline bolus and placed on a continuous infusion. He was given ceftriaxone 1 g. Blood cultures were taken. Urine cultures pending. ----- CT head without acute intracranial findings. Sepsis without shock. Lactic acidosis. Continue to trend white count, lactic acid, renal function. Blood cultures urine culture pending. Continue ceftriaxone. Continue fluids at 125 cc/hour. Continue to monitor encephalopathy. Home medications were restarted as appropriate. SCDs. Saline infusion. Heart healthy diet. Heparin subQ 5000 units t.i.d.. Patient wishes to be full code per his son. Admit to medical floor with telemetry for sepsis. Hospitalist [facility] Advance Care Plan I have confirmed that the patient's Advanced Care Plan is present, code status is documented, or surrogate decision maker is listed in patient medical record.: Yes Medication Reconciliation I have utilized all available resources to obtain, update and review the patients current medications (includes all prescriptions, OTC, herbals, cannabis, and nutritional supplements).: Yes
[2024-04-09 22:53] VITALS: BMI 29.2
[2024-04-09 23:09] VITALS: BMI 33.6
[2024-04-10] VITALS (11 sets, daily range): BP systolic 104–134; BP diastolic 56–81; PULSE 68–115; RESP 16–18; TEMP 36.6–36.7; O2SAT 95
[2024-04-10 01:01] LABS: Reflex Lactic Acid Yes or No Add Lactic
[2024-04-10 01:41] LABS: Lactic Acid 1.7 mmol/L (0.7-2.0)
[2024-04-10] MEDS: SODIUM CHLORIDE 0.9% IV 1,000 ML 125 ML IV CONT ×2 (06:03→20:31)
[2024-04-10] MEDS: HEPARIN SODIUM 5,000 UNITS/ML VIAL 5000 UNITS SUB-Q ×2 (06:04→14:14)
[2024-04-10 06:16] LABS: Basophils Percent Auto 0.4 % (0.2-1.2); Eosinophils Absolute Auto 0.1 K/mm3 (0-0.3); Hematocrit 38.1 % (42.0-52.0); Immature Granulocyte Absolute 0.03 K/mm3 (0.00-0.031); Immature Granulocyte Percent A 0.3 % (0-0.5); Lymphocytes Absolute Auto 0.51 K/mm3 (0.9-3.2); Lymphocytes Percent Auto 5.7 % (18.3-44.2); Mean Corpuscular HGB Conc 34.1 g/dl (32-36); Mean Corpuscular Hemoglobin 35.5 pg (26-34); Mean Corpuscular Volume 104.1 fl (80-100); Monocytes Absolute Auto 1.2 K/mm3 (0.1-0.6); Monocytes Percent Auto 12.8 % (2.6-8.5); Neutrophils Absolute Auto 7.2 K/mm3 (1.3-6.7); Neutrophils Percent Auto 79.8 % (45.5-73.1); Platelet Count Result 175 k/mm3 (150-375); Red Blood Count 3.66 M/mm3 (4.6-6.20); Red Cell Distribution Width 12.8 % (11.5-14.5)
[2024-04-10 06:23] LABS: Anion Gap 10 mmol/L (4-12); Blood Urea Nitrogen 23 mg/dL (9-20); Calcium 8.7 mg/dL (8.4-10.2); Carbon Dioxide 21 mmol/L (22-30); Chloride 105 mmol/L (98-107); Estimated CRCL calculation 52 ml/min; Estimated Glomerular Filt Rate 53; Glucose 110 mg/dL (65-110); Lactic Acid Reflex 1.2 mmol/L (0.7-2.0); Magnesium 1.8 mg/dL (1.6-2.3); Potassium 3.9 mmol/L (3.4-5.0); Sodium 136 mmol/L (137-145)
[2024-04-10 06:41] LABS: Procalcitonin 0.2 ng/mL
--- NOTE | 2024-04-10 07:20 | PM.IMPN ---
Progress Note: A&P Assessment and Plan (1) Sepsis: Code(s): A41.9 - Sepsis, unspecified organism Status: Acute Assessment and Plan: Meets SIRS criteria: lactic acidosis, tachycardia, suspected source - lactic acid: 2.8 on admission, now 1.2 on am labs - IV fluid resuscitation given in the ED - suspected source: UTI - blood cultures drawn on 04/09: pending - UA: turbid appearance of urine, 3+ protein, trace ketones, 2+ blood, 3+ leukocyte esterase, greater than 100 wbc's, 4+ bacteria. - UC obtained on 04/09: pending (2) Urinary tract infection: Code(s): N39.0 - Urinary tract infection, site not specified Status: Acute Assessment and Plan: - UA: turbid appearance of urine, 3+ protein, trace ketones, 2+ blood, 3+ leukocyte esterase, greater than 100 wbc's, 4+ bacteria. - UC obtained on 04/09: pending - previous micro reviewed 03/21/24: klebsiella pneumoniae pansensitive 03/28/23: klebsiella pneumoniae rsistant to macrobid 03/14/23: klebsiella pneumoniae pansenstive 11/18/22: enterobacter cloacae complex resistant to augmentin and cefazolin 09/07/22: enterococcus species pansensitive 03/02/22: enterococcus species pansensitive 07/02/20: coag neg staph, not saprophyti resistant to oxacillin, tetracycline and bactrim 02/25/20: coag neg staph, not saprophyti resistant to oxacillin, tetracycline and bactrim 12/17/19: coag neg staph, not saprophyti resistant to oxacillin, tetracycline and bactrim 10/26/19: coag neg staph, not saprophyti resistant to oxacillin, tetracycline 08/20/19: coag neg staph, not saprophyti resistant to oxacillin, tetracycline and bactrim - started on rocephin 04/09 (3) Acute alteration in mental status: Code(s): R41.82 - Altered mental status, unspecified Status: Acute Assessment and Plan: Patient thought to be more confused and brought to the ED by family. Patient has no definite diagnosis of dementia although he becomes encephalopathic whenever he gets a UTI. - Head CT: No acute intracranial findings - Monitor (4) Acute kidney injury superimposed on CKD: Code(s): N17.9 - Acute kidney failure, unspecified; N18.9 - Chronic kidney disease, unspecified Status: Acute Assessment and Plan: BUN/Cr 27/1.7 on admission. - BUN/Cr 23/1.3 on am labs - Renal US ordered - IV fluids - Monitor intake and output - Avoid nephrotoxic medications - Renally dose medications (5) Lactic acidosis: Code(s): E87.20 - Acidosis, unspecified Status: Resolved Assessment and Plan: - lactic acid: 2.8 on admission, received IV fluids in the ED - now 1.2 on am labs (6) Unwitnessed fall: Code(s): R29.6 - Repeated falls Status: Acute Assessment and Plan: The day prior to admission the patient was found on the floor due to weakness. Patient does not remember falling. - Head CT: No acute intracranial findings - PT/OT ordered Time Spent With Patient Time with patient: 25 - 35 minutes Subjective Date/time seen: 04/10/24 07:20 Interval history: 78 year old male with past medical history of frequent urinary tract infections associated with confusion, Khoury's palsy, glaucoma, chronic kidney disease stage 3, hypertension, gout, fatty liver, AFib associated with sepsis twice previous, pulmonary embolism, nephrolithiasis, osteoarthritis, overactive bladder, rheumatoid arthritis, TIA, and vitamin-D deficiency presents to the emergency room by EMS this evening with complaints of having worsening confusion and altered mental status. Patient is pleasant lying in bed with sonGuillermo at bedside. He remains pleasantly confused throughout exam, AOx2 (person, place). Patient was last admitted on 03/21-03/24 for septic shock secondary to UTI. He denies dysuria and burning sensation with urination. He also denies chest pain, shortness of breath, nausea/vomiting and abdominal pain. Patient remains on rocephin at this time. Review of Systems Review of Systems: All systems reviewed & are unremarkable except as noted in HPI and below Exam Narrative: AF HR 94 RR 18 SpO2 95 BP 108/56 General: male in no acute respiratory distress who is nontoxic appearing, lying semi recumbent in bed. HEENT: Normocephalic. Atraumatic. Extraocular movement intact. Sclera clear and anicteric. No facial asymmetry. Chest: Lungs are clear to auscultation bilaterally. No wheezes or crackles. CV: Heart was regular rate and rhythm. S1/S2. No murmurs, gallops, or rubs. Abd: Abdomen was soft. Nontender. Nondistended. Positive bowel sounds. No organomegaly or masses. Ext: No clubbing, cyanosis, or edema. 2+ DP pulses bilaterally. Neuro: Patient is alert and oriented x2 (person and place). Cranial nerves 2-12 are intact. Speech is clear. Objective Data Vital Signs Vital Signs: Vital Signs - 24 hr 04/09/24 19:16 04/09/24 21:09 04/09/24 21:57 Temperature 98 F Pulse Rate 122 H 104 H 104 H Respiratory Rate 15 15 15 Blood Pressure 136/64 132/68 Pulse Oximetry 97 100 97 Oxygen Delivery Room Air 04/10/24 00:00 04/10/24 04:00 04/10/24 06:00 Temperature 98.1 F Pulse Rate 115 H 94 100 Respiratory Rate 16 Blood Pressure 104/81 Pulse Oximetry 95 Oxygen Delivery Intake/Output Intake/Output: Intake & Output 04/07/24 04/08/24 04/09/24 04/10/24 23:59 23:59 23:59 23:59 Intake Total 1050 1295.8 Output Total 1200 Balance 1050 95.8 Meds/Results Medications: Active Medications Generic Name Dose Route Start Last Admin Trade Name Freq PRN Reason Stop Dose Admin Acetaminophen 650 mg 04/09/24 21:38 Acetaminophen 325 Mg Tablet PO Q4H PRN Mild Pain (1-3) or Fever Artificial Tears 1 drop 04/10/24 01:23 Artificial Tears Ophth Soln 15 Ml Bottle EACH EYE QID PRN Dry Eye(s) Brimonidine Tartrate 1 drop 04/10/24 09:00 Brimonidine Tartrate 0.2% Op Soln 5 Ml Btl EACH EYE Q12HR [facility] Duloxetine HCl 30 mg 04/10/24 09:00 Duloxetine Hcl 30 Mg Capsule. PO Q12HR [facility] Folic Acid 1 mg 04/10/24 09:00 Folic Acid 1 Mg Tablet PO BID [facility] Heparin Sodium (Porcine) 5,000 units 04/10/24 06:00 04/10/24 06:04 Heparin Sodium 5,000 Units/Ml Vial SUB-Q 5,000 units Q8HR [facility] Administration Hydroxychloroquine Sulfate 400 mg 04/10/24 08:00 Hydroxychloroquine Sulfate 200 Mg Tablet PO DAILY@0800 [facility] Ceftriaxone Sodium 1 gm in 50 mls @ 100 mls/hr 04/09/24 21:00 04/09/24 21:39 Rocephin 1 Gm/Ns 50 Ml IVPB Infused Q24H [facility] Infusion Sodium Chloride 1,000 mls @ 125 mls/hr 04/09/24 21:40 04/10/24 06:03 Normal Saline Iv IV CONT 125 mls/hr .Q8H [facility] Administration Latanoprost 1 drop 04/10/24 21:00 Latanoprost 0.005% Op Soln 2.5 Ml Btl EACH EYE HS [facility] Metoprolol Tartrate 50 mg 04/10/24 09:00 Metoprolol Tartrate 50 Mg Tab PO Q12HR [facility] Prednisolone Acetate 1 drop 04/10/24 09:00 Prednisolone Acetate 1% Ophth 5 Ml LEFT EYE TID [facility] Tamsulosin HCl 0.8 mg 04/10/24 21:00 Tamsulosin Hcl 0.4 Mg Capsule PO HS [facility] Timolol Maleate 1 drop 04/10/24 09:00 Timolol Maleate 0.5% Op Soln 5 Ml Bottle EACH EYE Q12HR [facility] Radiology Results: ITS Impressions Head CT 04/09/24 21:00 IMPRESSION: No acute intracranial findings. Labs Labs: Laboratory Results - last 24 hr 04/09/24 04/09/24 04/10/24 19:31 21:58 01:28 WBC 11.0 H RBC 3.84 L Hgb 13.8 L Hct 40.2 L MCV 104.7 H MCH 35.9 H MCHC 34.3 RDW 12.9 Plt Count 187 MPV 9.0 Immature Gran % (Auto) 0.3 Neut % (Auto) 86.7 H Lymph % (Auto) 3.7 L [place] % (Auto) 8.5 Eos % (Auto) 0.3 Baso % (Auto) 0.5 Lymph # (Auto) 0.41 L [place] # (Auto) 0.9 H Eos # (Auto) 0.0 Baso # (Auto) 0.1 Abs Immat Gran (auto) 0.03 Absolute Neuts (auto) 9.5 H Absolute Nucleated RBC 0.000 Nucleated RBC % 0.0 PT 14.0 INR 1.1 APTT 25.6 Sodium 136 L Potassium 4.4 Chloride 100 Carbon Dioxide 23 Anion Gap 13 H BUN 27 H Creatinine 1.70 H Estim Creat Clear Calc 34 Estimated GFR 39 L Glucose 140 H Lactic Acid 2.8 H 1.7 Calcium 9.2 Magnesium Total Bilirubin 0.8 AST 26 ALT 27 Alkaline Phosphatase 60 Total Protein 8.0 Albumin 4.3 Procalcitonin Urine Color Yellow Urine Appearance Turbid H Urine pH 5.5 Ur Specific [place] 1.015 Urine Protein 3+ H Urine Glucose (UA) Negative Urine Ketones Trace H Ur Blood (Man) 2+ H Urine Nitrate Negative Urine Bilirubin Negative Urine Urobilinogen 0.2 Leukocyte Esterase Rfl 3+ H Urine RBC 3-5 H Urine WBC >100 H Ur Squamous Epith Cells None seen Urine Bacteria 4+ H Urine Casts 0-2 04/10/24 05:39 WBC 9.0 RBC 3.66 L Hgb 13.0 L Hct 38.1 L MCV 104.1 H MCH 35.5 H MCHC 34.1 RDW 12.8 Plt Count 175 MPV 9.0 Immature Gran % (Auto) 0.3 Neut % (Auto) 79.8 H Lymph % (Auto) 5.7 L [place] % (Auto) 12.8 H Eos % (Auto) 1.0 Baso % (Auto) 0.4 Lymph # (Auto) 0.51 L [place] # (Auto) 1.2 H Eos # (Auto) 0.1 Baso # (Auto) 0.0 Abs Immat Gran (auto) 0.03 Absolute Neuts (auto) 7.2 H Absolute Nucleated RBC 0.000 Nucleated RBC % 0.0 PT INR APTT Sodium 136 L Potassium 3.9 Chloride 105 Carbon Dioxide 21 L Anion Gap 10 BUN 23 H Creatinine 1.30 Estim Creat Clear Calc 52 Estimated GFR 53 L Glucose 110 Lactic Acid 1.2 Calcium 8.7 Magnesium 1.8 Total Bilirubin AST ALT Alkaline Phosphatase Total Protein Albumin Procalcitonin 0.2 Urine Color Urine Appearance Urine pH Ur Specific [place] Urine Protein Urine Glucose (UA) Urine Ketones Ur Blood (Man) Urine Nitrate Urine Bilirubin Urine Urobilinogen Leukocyte Esterase Rfl Urine RBC Urine WBC Ur Squamous Epith Cells Urine Bacteria Urine Casts Quality VTE Prophylaxis VTE prophylaxis: pharmacologic ordered
[2024-04-10 08:23] LABS: Glucose Point of Care 103 mg/dl (65-105)
[2024-04-10] MEDS: METOPROLOL TARTRATE 50 MG TAB PO ×2 (08:57→20:24)
[2024-04-10] MEDS: DULoxetine HCL 30 MG CAPSULE.DR PO ×2 (08:57→20:24)
[2024-04-10] MEDS: FOLIC ACID 1 MG TABLET PO ×2 (08:57→16:30)
[2024-04-10] MEDS: HYDROXYCHLOROQUINE SULFATE 200 MG TABLET 400 MG PO (08:57)
[2024-04-10] MEDS: BRIMONIDINE TARTRATE 0.2% OP SOLN 5 ML BTL 1 DROP EACH EYE ×2 (08:58→20:23)
[2024-04-10] MEDS: TIMOLOL MALEATE 0.5% OP SOLN 5 ML BOTTLE 1 DROP EACH EYE ×2 (08:58→20:23)
[2024-04-10] MEDS: prednisoLONE ACETATE 1% OPHTH 5 ML 1 DROP LEFT EYE ×2 (09:26→16:30)
[2024-04-10] MEDS: LATANOPROST 0.005% OP SOLN 2.5 ML BTL 1 DROP EACH EYE (20:23)
[2024-04-10] MEDS: TAMSULOSIN HCL 0.4 MG CAPSULE 0.8 MG PO (20:24)
[2024-04-11] VITALS (10 sets, daily range): BP systolic 103–129; BP diastolic 55–83; PULSE 61–103; RESP 14–18; TEMP 36.3–36.8; O2SAT 95–96
--- NOTE | 2024-04-11 07:37 | PM.IMPN ---
Progress Note: A&P Assessment and Plan (1) Sepsis: Code(s): A41.9 - Sepsis, unspecified organism Status: Acute Assessment and Plan: Meets SIRS criteria: lactic acidosis, tachycardia, suspected source - lactic acid: 2.8 on admission, now 1.2 on am labs - IV fluid resuscitation given in the ED - suspected source: UTI - blood cultures drawn on 04/09: NGTD - UA: turbid appearance of urine, 3+ protein, trace ketones, 2+ blood, 3+ leukocyte esterase, greater than 100 wbc's, 4+ bacteria. - UC obtained on 04/09: klebsiella pneumoniae 04/11: Vital signs remained stable. Labs are unremarkable. (2) Urinary tract infection: Code(s): N39.0 - Urinary tract infection, site not specified Status: Acute Assessment and Plan: - UA: turbid appearance of urine, 3+ protein, trace ketones, 2+ blood, 3+ leukocyte esterase, greater than 100 wbc's, 4+ bacteria. - UC obtained on 04/09: klebsiella pneumoniae - previous micro reviewed 03/21/24: klebsiella pneumoniae pansensitive 03/28/23: klebsiella pneumoniae rsistant to macrobid 03/14/23: klebsiella pneumoniae pansenstive 11/18/22: enterobacter cloacae complex resistant to augmentin and cefazolin 09/07/22: enterococcus species pansensitive 03/02/22: enterococcus species pansensitive 07/02/20: coag neg staph, not saprophyti resistant to oxacillin, tetracycline and bactrim 02/25/20: coag neg staph, not saprophyti resistant to oxacillin, tetracycline and bactrim 12/17/19: coag neg staph, not saprophyti resistant to oxacillin, tetracycline and bactrim 10/26/19: coag neg staph, not saprophyti resistant to oxacillin, tetracycline 08/20/19: coag neg staph, not saprophyti resistant to oxacillin, tetracycline and bactrim - started on rocephin 04/09, transitioned to keflex on 04/11 after discussing with ID pharm (3) Acute alteration in mental status: Code(s): R41.82 - Altered mental status, unspecified Status: Acute Assessment and Plan: Patient thought to be more confused and brought to the ED by family. Patient has no definite diagnosis of dementia although he becomes encephalopathic whenever he gets a UTI. - Head CT: No acute intracranial findings - Monitor (4) Acute kidney injury superimposed on CKD: Code(s): N17.9 - Acute kidney failure, unspecified; N18.9 - Chronic kidney disease, unspecified Status: Acute Assessment and Plan: BUN/Cr 27/1.7 on admission. - BUN/Cr 18/1.2 on am labs - Renal US: Normal kidney, no hydronephrosis. - Monitor intake and output - Avoid nephrotoxic medications - Renally dose medications (5) Lactic acidosis: Code(s): E87.20 - Acidosis, unspecified Status: Resolved Assessment and Plan: - lactic acid: 2.8 on admission, received IV fluids in the ED - downtrended to 1.2 (6) Unwitnessed fall: Code(s): R29.6 - Repeated falls Status: Acute Assessment and Plan: The day prior to admission the patient was found on the floor due to weakness. Patient does not remember falling. - Head CT: No acute intracranial findings - PT/OT ordered (7) Hyponatremia: Code(s): E87.1 - Hypo-osmolality and hyponatremia Status: Acute Assessment and Plan: Na 128 on am labs. Baseline WNL. - Patient remains asymptomatic - Monitor Time Spent With Patient Time with patient: 25 - 35 minutes Subjective Date/time seen: 04/11/24 07:37 Interval history: 78 year old male with past medical history of frequent urinary tract infections associated with confusion, Khoury's palsy, glaucoma, chronic kidney disease stage 3, hypertension, gout, fatty liver, AFib associated with sepsis twice previous, pulmonary embolism, nephrolithiasis, osteoarthritis, overactive bladder, rheumatoid arthritis, TIA, and vitamin-D deficiency presents to the emergency room by EMS this evening with complaints of having worsening confusion and altered mental status. Patient is pleasant lying comfortably. He remains A&O x2 ( person, place). he has no complaints at this time, denying dysuria, burning sensation, and hematuria. His urine culture came back positive for Klebsiella pneumoniae. Discussed patient with ID pharmacy and he will be transitioned to p.o. Keflex at this time. Patient denies chest pain, shortness of breath, palpitations, and abdominal pain. Review of Systems Review of Systems: All systems reviewed & are unremarkable except as noted in HPI and below Exam Narrative: AF HR 61 RR 18 SpO2 95 BP 129/68 General: male in no acute respiratory distress who is nontoxic appearing, lying semi recumbent in bed. HEENT: Normocephalic. Atraumatic. Extraocular movement intact. Sclera clear and anicteric. No facial asymmetry. Chest: Lungs are clear to auscultation bilaterally. No wheezes or crackles. CV: Heart was regular rate and irregular rhythm. S1/S2. No murmurs, gallops, or rubs. Abd: Abdomen was soft. Nontender. Nondistended. Positive bowel sounds. No organomegaly or masses. Ext: No clubbing, cyanosis, or edema. 2+ DP pulses bilaterally. Neuro: Patient is alert and oriented x2 (person and place). Cranial nerves 2-12 are intact. Speech is clear. Objective Data Vital Signs Vital Signs: Vital Signs - 24 hr 04/10/24 08:57 04/10/24 08:00 04/10/24 08:55 Temperature Pulse Rate 104 H 77 Respiratory Rate Blood Pressure Pulse Oximetry Oxygen Delivery Room Air 04/10/24 12:00 04/10/24 14:00 04/10/24 14:28 Temperature 97.8 F Pulse Rate 78 94 Respiratory Rate 18 Blood Pressure 108/56 L Pulse Oximetry 95 Oxygen Delivery Room Air 04/10/24 16:00 04/10/24 19:23 04/10/24 20:24 Temperature 98.1 F Pulse Rate 68 70 70 Respiratory Rate 18 Blood Pressure 134/70 Pulse Oximetry 95 Oxygen Delivery 04/11/24 00:00 04/10/24 20:00 04/11/24 04:00 Temperature 97.7 F 97.4 F L Pulse Rate 74 61 Respiratory Rate 18 18 Blood Pressure 125/83 129/68 Pulse Oximetry 95 95 Oxygen Delivery Room Air 04/10/24 20:00 04/11/24 00:00 Temperature Pulse Rate 72 80 Respiratory Rate Blood Pressure Pulse Oximetry Oxygen Delivery Intake/Output Intake/Output: Intake & Output 04/08/24 04/09/24 04/10/24 04/11/24 23:59 23:59 23:59 23:59 Intake Total 1050 4355.8 Output Total 1900 1840 Balance 1050 2455.8 -1840 Meds/Results Medications: Active Medications Generic Name Dose Route Start Last Admin Trade Name Freq PRN Reason Stop Dose Admin Acetaminophen 650 mg 04/09/24 21:38 Acetaminophen 325 Mg Tablet PO Q4H PRN Mild Pain (1-3) or Fever Artificial Tears 1 drop 04/10/24 01:23 Artificial Tears Ophth Soln 15 Ml Bottle EACH EYE QID PRN Dry Eye(s) Brimonidine Tartrate 1 drop 04/10/24 09:00 04/10/24 20:23 Brimonidine Tartrate 0.2% Op Soln 5 Ml Btl EACH EYE 1 drop Q12HR MART Administration Duloxetine HCl 30 mg 04/10/24 09:00 04/10/24 20:24 Duloxetine Hcl 30 Mg Capsule.Dr PO 30 mg Q12HR MART Administration Folic Acid 1 mg 04/10/24 09:00 04/10/24 16:30 Folic Acid 1 Mg Tablet PO 1 mg BID MART Administration Heparin Sodium (Porcine) 5,000 units 04/10/24 06:00 04/10/24 14:14 Heparin Sodium 5,000 Units/Ml Vial SUB-Q 5,000 units Q8HR MART Administration Hydroxychloroquine Sulfate 400 mg 04/10/24 08:00 04/10/24 08:57 Hydroxychloroquine Sulfate 200 Mg Tablet PO 400 mg DAILY@0800 MART Administration Ceftriaxone Sodium 1 gm in 50 mls @ 100 mls/hr 04/09/24 21:00 04/10/24 20:24 Rocephin 1 Gm/Ns 50 Ml IVPB 100 mls/hr Q24H MART Administration Sodium Chloride 1,000 mls @ 125 mls/hr 04/09/24 21:40 04/10/24 20:31 Normal Saline Iv IV CONT 125 mls/hr .Q8H MART Administration Latanoprost 1 drop 04/10/24 21:00 04/10/24 20:23 Latanoprost 0.005% Op Soln 2.5 Ml Btl EACH EYE 1 drop HS MART Administration Metoprolol Tartrate 50 mg 04/10/24 09:00 04/10/24 20:24 Metoprolol Tartrate 50 Mg Tab PO 50 mg Q12HR MART Administration Prednisolone Acetate 1 drop 04/10/24 09:00 04/10/24 16:30 Prednisolone Acetate 1% Ophth 5 Ml LEFT EYE 1 drop TID MART Administration Tamsulosin HCl 0.8 mg 04/10/24 21:00 04/10/24 20:24 Tamsulosin Hcl 0.4 Mg Capsule PO 0.8 mg HS MART Administration Timolol Maleate 1 drop 04/10/24 09:00 04/10/24 20:23 Timolol Maleate 0.5% Op Soln 5 Ml Bottle EACH EYE 1 drop Q12HR MART Administration Radiology Results: ITS Impressions Head CT 04/09/24 21:00 IMPRESSION: No acute intracranial findings. Renal Ultrasound 04/10/24 15:55 IMPRESSION: 1. Normal kidney sizes. No hydronephrosis. Labs Labs: Laboratory Results - last 24 hr 04/10/24 08:15 POC Capillary Glucose 103 Quality VTE Prophylaxis VTE prophylaxis: pharmacologic ordered
[2024-04-11 08:09] LABS: Basophils Percent Auto 0.4 % (0.2-1.2); Eosinophils Absolute Auto 0.3 K/mm3 (0-0.3); Eosinophils Percent Auto 4.6 % (0-4.4); Hematocrit 35.6 % (42.0-52.0); Hemoglobin 11.9 g/dL (14.0-18.0); Immature Granulocyte Absolute 0.03 K/mm3 (0.00-0.031); Immature Granulocyte Percent A 0.4 % (0-0.5); Lymphocytes Absolute Auto 0.58 K/mm3 (0.9-3.2); Lymphocytes Percent Auto 7.8 % (18.3-44.2); Mean Corpuscular HGB Conc 33.4 g/dl (32-36); Mean Corpuscular Hemoglobin 35.1 pg (26-34); Monocytes Percent Auto 13.1 % (2.6-8.5); Neutrophils Absolute Auto 5.5 K/mm3 (1.3-6.7); Neutrophils Percent Auto 73.7 % (45.5-73.1); Platelet Count Result 143 k/mm3 (150-375); Red Blood Count 3.39 M/mm3 (4.6-6.20); Red Cell Distribution Width 12.9 % (11.5-14.5); White Blood Count 7.4 K/mm3 (4.5-10.0)
[2024-04-11 08:21] LABS: Alanine Aminotransferase 20 U/L (6-50); Albumin Level 3.6 g/dL (3.5-5.1); Alkaline Phosphatase 46 U/L (38-126); Anion Gap 6 mmol/L (4-12); Aspartate Amino Transferase 27 U/L (17-59); Bilirubin,Total 0.7 mg/dL (0.2-1.3); Blood Urea Nitrogen 18 mg/dL (9-20); Calcium 8.5 mg/dL (8.4-10.2); Carbon Dioxide 25 mmol/L (22-30); Chloride 97 mmol/L (98-107); Estimated CRCL calculation 56 ml/min; Estimated Glomerular Filt Rate 58; Glucose 104 mg/dL (65-110); Potassium 3.8 mmol/L (3.4-5.0); Sodium 128 mmol/L (137-145)
[2024-04-11] MEDS: METOPROLOL TARTRATE 50 MG TAB PO ×2 (10:22→20:15)
[2024-04-11] MEDS: DULoxetine HCL 30 MG CAPSULE.DR PO ×2 (10:22→20:15)
[2024-04-11] MEDS: HYDROXYCHLOROQUINE SULFATE 200 MG TABLET 400 MG PO (10:23)
[2024-04-11] MEDS: FOLIC ACID 1 MG TABLET PO ×2 (10:23→17:54)
[2024-04-11] MEDS: TIMOLOL MALEATE 0.5% OP SOLN 5 ML BOTTLE 1 DROP EACH EYE ×2 (10:24→20:18)
[2024-04-11] MEDS: BRIMONIDINE TARTRATE 0.2% OP SOLN 5 ML BTL 1 DROP EACH EYE ×2 (10:25→20:18)
[2024-04-11] MEDS: prednisoLONE ACETATE 1% OPHTH 5 ML 1 DROP LEFT EYE ×3 (10:45→17:54)
[2024-04-11] MEDS: ACETAMINOPHEN 325 MG TABLET 650 MG PO (10:50)
[2024-04-11] MEDS: HEPARIN SODIUM 5,000 UNITS/ML VIAL 5000 UNITS SUB-Q ×2 (13:07→21:35)
[2024-04-11] MEDS: CEPHALEXIN 500 MG CAPSULE PO (20:15)
[2024-04-11] MEDS: TAMSULOSIN HCL 0.4 MG CAPSULE 0.8 MG PO (20:15)
[2024-04-11] MEDS: LATANOPROST 0.005% OP SOLN 2.5 ML BTL 1 DROP EACH EYE (20:23)
[2024-04-12] VITALS (7 sets, daily range): BP systolic 109–137; BP diastolic 62–81; PULSE 57–92; RESP 16–18; TEMP 36.7–36.9; O2SAT 91–97
[2024-04-12 05:21] LABS: Basophils Percent Auto 0.5 % (0.2-1.2); Eosinophils Absolute Auto 0.4 K/mm3 (0-0.3); Eosinophils Percent Auto 5.3 % (0-4.4); Hemoglobin 11.7 g/dL (14.0-18.0); Immature Granulocyte Absolute 0.01 K/mm3 (0.00-0.031); Immature Granulocyte Percent A 0.1 % (0-0.5); Lymphocytes Absolute Auto 0.63 K/mm3 (0.9-3.2); Lymphocytes Percent Auto 8.6 % (18.3-44.2); Mean Corpuscular HGB Conc 32.5 g/dl (32-36); Mean Corpuscular Hemoglobin 34.5 pg (26-34); Mean Corpuscular Volume 106.2 fl (80-100); Mean Platelet Volume 8.9 fl (7.4-10.4); Monocytes Absolute Auto 0.8 K/mm3 (0.1-0.6); Monocytes Percent Auto 11.5 % (2.6-8.5); Neutrophils Absolute Auto 5.4 K/mm3 (1.3-6.7); Platelet Count Result 151 k/mm3 (150-375); Red Blood Count 3.39 M/mm3 (4.6-6.20); Red Cell Distribution Width 12.7 % (11.5-14.5); White Blood Count 7.3 K/mm3 (4.5-10.0)
[2024-04-12 05:34] LABS: Alanine Aminotransferase 22 U/L (6-50); Albumin Level 3.7 g/dL (3.5-5.1); Alkaline Phosphatase 49 U/L (38-126); Anion Gap 9 mmol/L (4-12); Aspartate Amino Transferase 26 U/L (17-59); Bilirubin,Total 0.6 mg/dL (0.2-1.3); Blood Urea Nitrogen 20 mg/dL (9-20); Calcium 8.7 mg/dL (8.4-10.2); Carbon Dioxide 25 mmol/L (22-30); Chloride 103 mmol/L (98-107); Estimated CRCL calculation 52 ml/min; Estimated Glomerular Filt Rate 53; Glucose 105 mg/dL (65-110); Potassium 4.1 mmol/L (3.4-5.0); Sodium 137 mmol/L (137-145)
[2024-04-12] MEDS: HEPARIN SODIUM 5,000 UNITS/ML VIAL 5000 UNITS SUB-Q (06:30)
[2024-04-12 06:35] LABS: Macrocytosis 1+ (NORMAL); Platelet Estimate Adequate (Adequate); Schistocytes None Seen
[2024-04-12] MEDS: HYDROXYCHLOROQUINE SULFATE 200 MG TABLET 400 MG PO (09:04)
[2024-04-12] MEDS: METOPROLOL TARTRATE 50 MG TAB PO (09:04)
[2024-04-12] MEDS: DULoxetine HCL 30 MG CAPSULE.DR PO (09:07)
[2024-04-12] MEDS: CEPHALEXIN 500 MG CAPSULE PO (09:07)
[2024-04-12] MEDS: BRIMONIDINE TARTRATE 0.2% OP SOLN 5 ML BTL 1 DROP EACH EYE (09:07)
[2024-04-12] MEDS: TIMOLOL MALEATE 0.5% OP SOLN 5 ML BOTTLE 1 DROP EACH EYE (09:07)
[2024-04-12] MEDS: FOLIC ACID 1 MG TABLET PO (09:07)
[2024-04-12] MEDS: prednisoLONE ACETATE 1% OPHTH 5 ML 1 DROP LEFT EYE ×2 (09:07→12:50)
--- NOTE | 2024-04-12 12:12 | P.DS_ITS ---
DS: Admitting Diagnosis Discharge Date 04/12/2024 Admitting Diagnosis sepsis Urinary tract infection acute alteration in mental state STEVENSON lactic acidosis Unwitnessed fall hyponatremia DS: Discharge Diagnosis Discharge Diagnosis (1) Sepsis: Code(s): A41.9 - Sepsis, unspecified organism Status: Acute (2) Urinary tract infection: Code(s): N39.0 - Urinary tract infection, site not specified Status: Acute (3) Acute alteration in mental status: Code(s): R41.82 - Altered mental status, unspecified Status: Acute (4) Acute kidney injury superimposed on CKD: Code(s): N17.9 - Acute kidney failure, unspecified; N18.9 - Chronic kidney disease, unspecified Status: Acute (5) Lactic acidosis: Code(s): E87.20 - Acidosis, unspecified Status: Resolved (6) Unwitnessed fall: Code(s): R29.6 - Repeated falls Status: Acute (7) Hyponatremia: Code(s): E87.1 - Hypo-osmolality and hyponatremia Status: Acute DS: Summary Hospital Course Reason for hospitalization: sepsis Urinary tract infection acute alteration in mental state STEVENSON lactic acidosis Unwitnessed fall hyponatremia Hospital Course: 78 year old male with past medical history of frequent urinary tract infections associated with confusion, Khoury's palsy, glaucoma, chronic kidney disease stage 3, hypertension, gout, fatty liver, AFib associated with sepsis twice previous, pulmonary embolism, nephrolithiasis, osteoarthritis, overactive bladder, rheumatoid arthritis, TIA, and vitamin-D deficiency presents to the emergency room by EMS this evening with complaints of having worsening confusion and altered mental status. On admission patient was meeting SIRs criteria with lactic acidosis and tachycardia with suspected source being UTI. He receieved IV fluids and lactic acid returned to normal limits. A urinalysis showed turbid appearance of urine, 3+ protein, trace ketones, 2+ blood, 3+ leukocyte esterase, greater than 100 wbc's, 4+ bacteria. He was started on IV antibiotics at that time. Urince culture grew klebsiella pneumoniae. Discussed patient with ID pharmacy and he will be transitioned to p.o. Keflex to complete the course. Patient had a slight STEVENSON on arrial which resolved during admission. A renal US was obtained and showed normal kidney without hydronephrosis. Patient returned to baseline mental status with AOx4 on exam. He was evaluated by PT/OT who recommend home health which has been set up by care coordination. Prior to discharge patient denies chest pain, shortness of breath, nausea/vomiting and abdominal pain. patient discharged home with home health. He is to complete his antibiotics as prescribed and follow-up with his primary care provider in 1 week. Status at Discharge Functional status at discharge: uses cane/walker Time Spent with Patient Time attestation: Total time spent providing and/or coordinating discharge services: Time spent: Greater than 30 minutes Exam Narrative: AF HR 92 RR 16 SpO2 97 BP 130/71 General: male in no acute respiratory distress who is nontoxic appearing, lying semi recumbent in bed. HEENT: Normocephalic. Atraumatic. Extraocular movement intact. Sclera clear and anicteric. No facial asymmetry. Chest: Lungs are clear to auscultation bilaterally. No wheezes or crackles. CV: Heart was regular rate and irregular rhythm. S1/S2. No murmurs, gallops, or rubs. Abd: Abdomen was soft. Nontender. Nondistended. Positive bowel sounds. No organomegaly or masses. Ext: No clubbing, cyanosis, or edema. 2+ DP pulses bilaterally. Neuro: Patient is alert and oriented x4 (person, place, month, and situation). Cranial nerves 2-12 are intact. Speech is clear. DS: Data Data Completed and Pending Completed studies during hospitalization: renal ultrasound head CT Labs on day of discharge: Labs from last 24 hours 04/12/24 05:07 WBC 7.3 RBC 3.39 L Hgb 11.7 L Hct 36.0 L MCV 106.2 H MCH 34.5 H MCHC 32.5 RDW 12.7 Plt Count 151 MPV 8.9 Immature Gran % (Auto) 0.1 Neut % (Auto) 74.0 H Lymph % (Auto) 8.6 L [place] % (Auto) 11.5 H Eos % (Auto) 5.3 H Baso % (Auto) 0.5 Lymph # (Auto) 0.63 L [place] # (Auto) 0.8 H Eos # (Auto) 0.4 H Baso # (Auto) 0.0 Abs Immat Gran (auto) 0.01 Absolute Neuts (auto) 5.4 Absolute Nucleated RBC 0.000 Nucleated RBC % 0.0 Platelet Estimate Adequate Macrocytosis 1+ Schistocytes None seen Sodium 137 Potassium 4.1 Chloride 103 Carbon Dioxide 25 Anion Gap 9 BUN 20 Creatinine 1.30 Estim Creat Clear Calc 52 Estimated GFR 53 L Glucose 105 Calcium 8.7 Total Bilirubin 0.6 AST 26 ALT 22 Alkaline Phosphatase 49 Total Protein 7.0 Albumin 3.7 Preliminary micro results at discharge 04/09/24 19:44 Blood Culture - Preliminary Blood 04/09/24 19:44 Blood Culture - Preliminary Blood Discharge Plan Discharge Attending physician on discharge: Feliciano Farias Discharging Clinician: Eva Diaz Anticipated Discharge Date/Time: 04/12/24 12:01 Patient Disposition: Home Health Service Activity: as tolerated Diet: as tolerated and heart healthy Discharge Instructions: Discharge disposition: Patient was admitted to the hospital for increased confusion and was found to have a urinary tract infection. Continue medications as prescribed even if feeling better Keflex 500 mg twice a day to start tonight, course to be completed on 04/16 Eat well balanced meals and stay hydrated Keep active to remain strong Avoid use of diapers or pads Good shawn Care every 2 hours Trend urine output Monitor blood pressures Take caution while standing, rising, or moving Change positions slowly taking a break between each position change If you standing feel dizzy sat back down and take a break Encouraged to continue with yearly vaccinations Return to the emergency department if he developed sudden shortness of breath, chest pain, nausea, vomiting, upset stomach or intractable diarrhea Return to the emergency department if you develop fever greater than 101.5 Follow-up with the primary care physician within 1-2 weeks Thank you for choosing [facility] for your healthcare needs Per Care Coordination: [facility] ([phone]) for physical and occupational therapy has been arranged. They will call you regarding your first visit. Patient Instructions: Antibiotic Form, Cephalexin (By mouth), Urinary Tract Infection in Men (DC) Patient Language: Yemeni Stand Alone Forms: General Discharge Information Follow-up/Referrals: Bubba Cho MD [Primary Care Provider] - 1 Week Discharge Medications: New cephalexin 500 mg Capsule 500 mg PO Q12HR Qty: 9 0RF Continued Myrbetriq 25 mg tablet extended release 24 hr 25 mg PO DAILY hydroxychloroquine 200 mg tablet 400 mg PO DAILY Qty: 180 1RF duloxetine 30 mg capsule,delayed release(DR/EC) 30 mg PO BID Qty: 60 4RF travoprost 0.004 % drops 1 drp EACH EYE HS folic acid 1 mg tablet 1 mg PO BID potassium citrate 15 mEq tablet extended release 15 meq PO BID brimonidine-timolol 0.2-0.5 % drops 1 drp EACH EYE Q12H acetaminophen 500 mg capsule 1,000 mg PO Q6H PRN (Reason: Pain (Scale Score 1-3)) Systane Ultra 0.4-0.3 % Drops 1 drp EACH EYE QID PRN (Reason: Dry Eye(S)) tamsulosin 0.4 mg capsule 0.8 mg PO HS prednisolone acetate 1 % drops,suspension 1 drp LEFT EYE TID oxybutynin chloride 10 mg tablet extended release 24hr 10 mg PO DAILY Qty: 90 1RF metoprolol tartrate 50 mg tablet 50 mg PO BID Qty: 180 1RF lisinopril 10 mg tablet 10 mg PO DAILY Qty: 90 1RF Discontinued cephalexin 250 mg capsule 250 mg PO DAILY amoxicillin-pot clavulanate [Augmentin] 500-125 mg tablet 1 tablet PO Q12H Qty: 8 0RF Date of admission: 04/10/24 08:21 Primary Care Provider: Bubba Cho Admitting Provider: Mago Vaca Attending physician on admission: Eva Diaz Condition: Stable Hospitalist MIPS Heart Failure (Exclusion) Patient has history of Heart Transplant or Left Ventricular Assistive Device?: No IF YES, STOP HERE Heart Failure (Qualifier) Patient has current or prior documentation of LVEF less than or equal to 40%, or mod/servere depressed LVSF?: No IF NO, STOP HERE
[2024-04-12] MEDS: ACETAMINOPHEN 325 MG TABLET 650 MG PO (12:48)
[2024-04-12] MEDS: INFLUENZA VACCINE HIGH DOSE (>64) 180 MCG/0.5 ML SYRINGE IM (13:19)
--- NOTE | 2024-04-15 10:18 | PC.NURSE ---
Blood cx are negative.
== END 2024-04-12 14:30 | disposition home or self-care (01) | DRG 872 ==
LOC: ANHED 21:37 → ANH2MED 22:02
PROVIDERS: Student in an Organized Health Care Education/Training Program; Admitting Provider General Practice; Emergency Provider Emergency Medicine; PCP Family Medicine; Visit Provider Internal Medicine
DX: A41.9 Sepsis, unspecified organism (principal); N17.9 Acute kidney failure, unspecified; E87.20 Acidosis, unspecified; E87.1 Hypo-osmolality and hyponatremia; I12.9 Hypertensive chronic kidney disease with stage 1 through stage 4 chronic kidney disease, or unspecified chronic kidney disease; N18.31 Chronic kidney disease, stage 3a; C61 Malignant neoplasm of prostate; R41.82 Altered mental status, unspecified; B96.1 Klebsiella pneumoniae [K. pneumoniae] as the cause of diseases classified elsewhere; I87.2 Venous insufficiency (chronic) (peripheral); E55.9 Vitamin D deficiency, unspecified; K76.0 Fatty (change of) liver, not elsewhere classified; N32.81 Overactive bladder; M05.79 Rheumatoid arthritis with rheumatoid factor of multiple sites without organ or systems involvement; M10.9 Gout, unspecified; M19.90 Unspecified osteoarthritis, unspecified site; R73.03 Prediabetes; H54.40 Blindness, one eye, unspecified eye; H40.9 Unspecified glaucoma; Z23 Encounter for immunization; Z86.711 Personal history of pulmonary embolism; Z87.442 Personal history of urinary calculi; Z86.010 Personal history of colon polyps; Z86.73 Personal history of transient ischemic attack (TIA), and cerebral infarction without residual deficits; Z87.891 Personal history of nicotine dependence; Z91.81 History of falling
CPT/HCPCS: 36415; 70450; 76775; 80048; 80053; 81001; 82948; 83605; 83735; 84145; 85025; 85610; 85730; 87040; 87077; 87086; 87088; 87186; 90471; 90662; 93005; 96361; 97161; 97166; 97530; 97535; 99285; A9270; G0008; G0378; J0696; J1644; J7030

== ENCOUNTER 2024-04-12 20:36 | Inpatient (IN) | payer MEDICARE, SELFPAY ==
--- NOTE | ~2024-04-12 | XR_ITS ---
Clinical Indication: Weakness AP and lateral views of the chest: Comparison: 04/01/2024 Findings: The lungs are clear, without evidence of focal consolidation or pleural effusion. Cardiome diastinal silhouette is within normal limits. Bones and soft tissues are unremarkable. Impression: Normal chest. Reviewed, dictated and finalized at location . Impression: Normal chest.
--- NOTE | ~2024-04-12 | CT_ITS ---
EXAMINATION: CT foot RT wo con DATE: 04/14/2024 13:45 INDICATION: Right foot pain. TECHNIQUE: Computed tomography (CT) of the right foot was performed without intravenous contrast. Aut omated exposure control and iterative reconstruction technique were employed. The dose-length product was 441.71 mGy-cm. COMPARISON: Right foot radiographs 05/13/2024 FINDINGS: There is dorsiflexion of the metatarsophalangeal joints. No fracture. There is mild osteoar throsis of the ankle joint and subtalar joint. There is mild osteoarthritis of some of the midfoot tanesha ints and forefoot joints. There is moderate osteoarthritis of second tarsometatarsal joint. There is an enthesophyte at plantar aspect of calcaneal tuberosity. There is subcutaneous edema in the foot an d ankle. IMPRESSION: 1. Polyarticular osteoarthritis. Reviewed, dictated and finalized at location A.
--- NOTE | ~2024-04-12 | CT_ITS ---
EXAMINATION: CT foot LT wo con DATE: 04/14/2024 13:44 INDICATION: Left foot pain. TECHNIQUE: Computed tomography (CT) of the left foot was performed without intravenous contrast. Auto mated exposure control and iterative reconstruction technique were employed. The dose-length product was 470.70 mGy-cm. COMPARISON: None FINDINGS: There is dorsiflexion of the metatarsophalangeal joints. No fracture. There is mild osteoar thritis of ankle joint, subtalar joint, and some of the midfoot and forefoot joints. There is moderat e osteoarthritis of first metatarsophalangeal joint. IMPRESSION: 1. Polyarticular osteoarthritis. Reviewed, dictated and finalized at location A.
--- NOTE | ~2024-04-12 | XR_ITS ---
XR foot RT 2V DATE: 04/13/2024 14:19 INDICATION: Right foot swelling, erythema. No injury. TECHNIQUE: AP and lateral views COMPARISON: 03/04/2019 right foot FINDINGS: There is soft tissue swelling particularly of the forefoot dorsally. Mild plantar calcaneal enthesopathy without associated erosive change or periostitis. No recent fracture or dislocation, periosteal reaction or bone destruction. There is mild flattening of the medial aspect of the first metatarsal head, not evident on 03/04/2019. No erosive changes noted. IMPRESSION: Nonspecific mild soft tissue swelling Mild plantar calcaneal enthesopathy Chronic mild flattening of the medial aspect of the first metatarsal head Reviewed, dictated and finalized at location A.
--- NOTE | ~2024-04-12 | CT_ITS ---
CT head without contrast Indication: Altered mental status COMPARISON: 04/09/2024 Technique: Serial scans were obtained through the brain without the administration of contrast. Dose reduction technique was used on this scan by utilizing automated exposure control and iterative recon struction technique. The dose-length product (DLP) was 605.33 mGy-cm. Findings: There is no evidence of intracranial hemorrhage, mass lesion, or acute infarct. The ventri cles and subarachnoid spaces are dilated, consistent with moderate atrophy. Low attenuation regions are seen within the periventricular white matter bilaterally, likely representing changes from chroni c microvascular ischemic disease. There is no evidence of edema, mass effect or midline shift. The visualized paranasal sinuses and mastoid air cells are clear. Impression: No intracranial hemorrhage, mass, or acute infarct. Atrophy and chronic white matter changes, as above. Reviewed, dictated and finalized at location . Impression: No intracranial hemorrhage, mass, or acute infarct. Atrophy and chronic white matter changes, as above.
[2024-04-12 20:32] VITALS: BP 141/79; PULSE 80; RESP 24; TEMP 36.7; O2SAT 95
[2024-04-12 20:41] VITALS: PULSE 80
--- NOTE | 2024-04-12 20:41 | ECG_ITS ---
Test Date: 2024-04-12 20:47:12 Measurements Intervals [place] Rate: 77 P: -26 MA: 206 QRS: 45 QRSD: 121 T: -21 QT: 284 QTc: 321 Interpretive Statements SINUS RHYTHM ATRIAL COUPLET AND ATRIAL PREMATURE COMPLEXES RIGHT BUNDLE BRANCH BLOCK CONSIDER INFERIOR INFARCT, AGE INDETERMINATE BASELINE ARTIFACT- I, II, III, AVF, V2-V5 ABNORMAL ECG Compared to ECG 04/09/2024 19:27:55 HEART RATE HAS DECREASED Electronically Signed On 04-13-2024 07:17:00 CDT by Francisco Pérez D.O.
[2024-04-12 21:15] LABS: Basophils Percent Auto 0.5 % (0.2-1.2); Eosinophils Absolute Auto 0.3 K/mm3 (0-0.3); Eosinophils Percent Auto 3.4 % (0-4.4); Hematocrit 38.3 % (42.0-52.0); Hemoglobin 12.9 g/dL (14.0-18.0); Immature Granulocyte Absolute 0.03 K/mm3 (0.00-0.031); Immature Granulocyte Percent A 0.4 % (0-0.5); Lymphocytes Percent Auto 6.6 % (18.3-44.2); Mean Corpuscular HGB Conc 33.7 g/dl (32-36); Mean Corpuscular Hemoglobin 35.4 pg (26-34); Mean Corpuscular Volume 105.2 fl (80-100); Mean Platelet Volume 8.9 fl (7.4-10.4); Monocytes Absolute Auto 0.9 K/mm3 (0.1-0.6); Monocytes Percent Auto 12.1 % (2.6-8.5); Neutrophils Absolute Auto 5.9 K/mm3 (1.3-6.7); Platelet Count Result 159 k/mm3 (150-375); Red Blood Count 3.64 M/mm3 (4.6-6.20); Red Cell Distribution Width 12.9 % (11.5-14.5); White Blood Count 7.6 K/mm3 (4.5-10.0)
[2024-04-12 21:24] LABS: Alanine Aminotransferase 25 U/L (6-50); Alkaline Phosphatase 50 U/L (38-126); Anion Gap 8 mmol/L (4-12); Aspartate Amino Transferase 28 U/L (17-59); Bilirubin,Total 0.7 mg/dL (0.2-1.3); Blood Urea Nitrogen 19 mg/dL (9-20); Calcium 8.7 mg/dL (8.4-10.2); Carbon Dioxide 26 mmol/L (22-30); Chloride 100 mmol/L (98-107); Estimated CRCL calculation 57 ml/min; Estimated Glomerular Filt Rate 58; Glucose 142 mg/dL (65-110); Potassium 3.7 mmol/L (3.4-5.0); Sodium 134 mmol/L (137-145)
[2024-04-12 21:25] LABS: INR 1.1; Prothrombin Time 14.6 Seconds (11.1-14.7)
[2024-04-12 21:26] LABS: Partial Thromboplastin Time 25.7 Seconds (22.3-36.8)
[2024-04-12 21:27] VITALS: BP 129/71; PULSE 83; RESP 30; O2SAT 98
[2024-04-12 21:29] LABS: Macrocytosis 1+ (NORMAL); Platelet Estimate Adequate (Adequate); Schistocytes None Seen
--- NOTE | 2024-04-12 22:26 | ED.GENADULT ---
HPI - General Adult General Chief complaint: Altered Mental Status Stated complaint: AMS, dx w/UTI TODAY Time Seen by Provider: 04/12/24 20:42 History of Present Illness HPI narrative: Patient 78-year-old gentleman who presents emergency department with chief complaint of altered mental status. Patient was admitted to the hospital for urinary tract infection and altered mental status per the family the patient was still confused whenever he left the hospital this morning and reports that he went home and was still confused. The family is concerned that he still has an infection and has not been improving. Related Data Home Medications Medication Instructions Recorded Confirmed peg 400-propylene glycol 0.4 %-0.3 1 drp EACH EYE QID PRN Dry Eye(S) 11/19/22 04/09/24 % eye drops (Systane Ultra) tamsulosin 0.4 mg capsule 0.8 mg PO HS 02/16/23 04/09/24 folic acid 1 mg tablet 1 mg PO BID 03/14/23 04/09/24 potassium citrate 15 mEq (1,620 15 meq PO BID 03/14/23 04/09/24 mg) tablet,extended release travoprost 0.004 % eye drops 1 drp EACH EYE HS 03/14/23 04/09/24 brimonidine 0.2 %-timolol 0.5 % 1 drp EACH EYE Q12H 03/28/23 04/09/24 eye drops mirabegron 25 mg tablet,extended 25 mg PO DAILY 07/30/23 04/09/24 release 24 hr (Myrbetriq) acetaminophen 500 mg capsule 1,000 mg PO Q6H PRN Pain (Scale 03/22/24 04/09/24 Score 1-3) prednisolone acetate 1 % eye 1 drp LEFT EYE TID 04/09/24 04/09/24 drops,suspension Allergies Allergy/AdvReac Type Severity Reaction Status Date / Time No Known Drug Allergies Allergy Mild unknown Verified 04/01/24 06:32 Review of Systems Review of Systems: A 10 system review of systems was completed on the patient and is negative except for what is stated in the HPI. Nursing and ancillary documentation was reviewed. [facility] Past Medical History Medical History Acute pyelonephritis (~03/2023) Bacteremia (~10/2019) UTI with bacteremia, CNSS not saprophyticus. 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 Kidney stones Left ureteral stone Osteoarthritis Overactive bladder Paroxysmal atrial fibrillation (~10/2019) associated with sepsis Pre-diabetes Hemoglobin A1c was 6.3% in April 2019. 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 History of appendectomy (~1957) History of cystoscopy (~05/2022) cystoscopy, left retrograde pyelography and left ureteral stent placement History of glaucoma tube shunt procedure (~06/2023) Left History of left cataract surgery (~2009) History of lithotripsy (~02/2023) Cystoscopy, left ureteroscopy with laser lithotripsy, stone extraction stent placement History of lithotripsy (~08/2022) Cystoscopy, left retrograde pyelography, left ureteroscopy with laser lithotripsy and stone extraction, left ureteral stent replacement History of ureter stent (~10/2022) cystoscopy, left retrograde pyelogram and placement of left 6fr variable length stent History of ureter stent (~03/2023) Cystoscopy, left ureteroscopy wit
[2024-04-12 22:27] LABS: Add Urine Microscopic? YES; Appearance Urine Clear (Clear); Bacteria Urine None Seen /hpf; Bilirubin Urine Negative (Negative); Blood Urine Negative (Negative); Color Urine Yellow (Yellow); Glucose Urine UA Trace mg/dL (Negative); Ketones Urine Negative (Negative); Leukocyte Esterase Ur 1+ LEU/UL (Negative); Need Manual Microscopic Reviewed; Nitrate Urine Negative (Negative); Non Pathogenic Casts 0-2; Protein Urine 1+ mg/dL (Negative); RBC Urine 0-2 /hpf (0-2); Squamous Epithelial Cell Urine Occasional /hpf (Few); Urobilinogen Urine 0.2 mg/dL (<2.0); WBC Urine 21-50 /hpf (0-3); pH Urine 5.5 (5.0-9.0)
--- NOTE | 2024-04-12 23:04 | PM.IMHP ---
H&P: HPI History of Present Illness Date/Time: 04/12/24 23:04 Chief Complaint: altered mental status Narrative: This is a 78-year-old male with past medical history significant for recurrent urinary tract infection, rheumatoid arthritis, paroxysmal atrial fibrillation, benign prostatic hyperplasia chronic kidney disease, chronic venous insufficiency, gout. patient just discharged after being treated for urinary tract infection however was brought back to the emergency room due to altered mental status, patient has been incoherent, speaking nonsensical. Preliminary workup was significant for urinalysis with numerous WBCs present. CT brain wo con Ordering provider: Sydney Gee MD History: 78 years Male with . Confusion . Comparison: April 01, 2024 Technique: CT of the head without contrast. Radiation reduction technique utilized.The dose-length product was 1135 mGy-cm FINDINGS: BRAIN PARENCHYMA AND CSF SPACES: Mild leukoaraiosis and diffuse cortical atrophy. Mild atheromatous disease. No midline shift, mass effect or hemorrhage. The brain parenchyma and CSF spaces are otherwise normal. VISUALIZED PARANASAL SINUSES: Well aerated. MASTOIDS: Well aerated. BONES: The bones appear intact. SOFT TISSUES: Visualized nasopharynx is normal. Superficial soft tissues are normal. IMPRESSION: No acute intracranial findings. Review of Systems Review of Systems: ROS unobtainable: Yes unobtainable due to mental status ( delirium/confusion) [facility] Past Medical History Medical History Acute pyelonephritis (~03/2023) Bacteremia (~10/2019) UTI with bacteremia, CNSS not saprophyticus. 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 Kidney stones Left ureteral stone Osteoarthritis Overactive bladder Paroxysmal atrial fibrillation (~10/2019) associated with sepsis Pre-diabetes Hemoglobin A1c was 6.3% in April 2019. 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 History of appendectomy (~1957) History of cystoscopy (~05/2022) cystoscopy, left retrograde pyelography and left ureteral stent placement History of glaucoma tube shunt procedure (~06/2023) Left History of left cataract surgery (~2009) History of lithotripsy (~02/2023) Cystoscopy, left ureteroscopy with laser lithotripsy, stone extraction stent placement History of lithotripsy (~08/2022) Cystoscopy, left retrograde pyelography, left ureteroscopy with laser lithotripsy and stone extraction, left ureteral stent replacement History of ureter stent (~10/2022) cystoscopy, left retrograde pyelogram and placement of left 6fr variable length stent History of ureter stent (~03/2023) Cystoscopy, left ureteroscopy with stone extraction and left ureteral stent placement Hx of lithotripsy (~04/2022) Left ESWL Family History Family History Father Diabetes mellitus Acute myocardial infarction Heart disease Hypertension Social History Soc
[2024-04-12 23:07] VITALS: BP 113/52; PULSE 92; RESP 26; O2SAT 96
[2024-04-12 23:45] VITALS: BMI 32.0
[2024-04-12 23:46] VITALS: BP 128/67; PULSE 84; RESP 18; TEMP 36.9; O2SAT 96
[2024-04-13 06:00] VITALS: BP 107/78; PULSE 79; RESP 20; TEMP 37.1; O2SAT 95
--- NOTE | 2024-04-13 06:45 | PM.IMPN ---
Progress Note: A&P Assessment and Plan (1) Acute UTI: Code(s): N39.0 - Urinary tract infection, site not specified Status: Acute Assessment and Plan: - UA: clear, 1+ protein, trace glucose, 1+ leukocytes, 21-50 WBC, with occasional squamous cells - UC obtained on 04/12: pending 04/09/24: klebsiella pneumoniae pansesitive 03/21/24: klebsiella pneumoniae pansensitive 03/28/23: klebsiella pneumoniae resistant to macrobid 03/14/23: klebsiella pneumoniae pansenstive 11/18/22: enterobacter cloacae complex resistant to augmentin and cefazolin 09/07/22: enterococcus species pansensitive 03/02/22: enterococcus species pansensitive 07/02/20: coag neg staph, not saprophyti resistant to oxacillin, tetracycline and bactrim 02/25/20: coag neg staph, not saprophyti resistant to oxacillin, tetracycline and bactrim 12/17/19: coag neg staph, not saprophyti resistant to oxacillin, tetracycline and bactrim 10/26/19: coag neg staph, not saprophyti resistant to oxacillin, tetracycline 08/20/19: coag neg staph, not saprophyti resistant to oxacillin, tetracycline and bactrim - previous micro reviewed - started on Rocephin on 04/12/24 (2) Altered mental status: Code(s): R41.82 - Altered mental status, unspecified Status: Acute Assessment and Plan: Patient thought to be more confused and brought to the ED by family. Patient has no definite diagnosis of dementia although he becomes encephalopathic whenever he gets a UTI. Remains AOx2-3. (3) Hypertension: Code(s): I10 - Essential (primary) hypertension Status: Acute Assessment and Plan: Chronic, well controlled on home medication - currently 107/78 with lisinopril on hold - metoprolol 50 mg BID - monitor Time Spent With Patient Time with patient: 25 - 35 minutes Subjective Date/time seen: 04/13/24 06:45 Interval history: 78 year old male with past medical history of frequent urinary tract infections associated with confusion, Khoury's palsy, glaucoma, chronic kidney disease stage 3, hypertension, gout, fatty liver, AFib associated with sepsis twice previous, pulmonary embolism, nephrolithiasis, osteoarthritis, overactive bladder, rheumatoid arthritis, TIA, and vitamin-D deficiency presents to the emergency room by EMS this evening with complaints of having worsening confusion and altered mental status. Patient was discharged yesterday, but per family he remains confused and they believe he needs placement. Patient is pleasant lying comfortably in bed. He is AOx2-3. Patient is pleasantly confused periodically during my assessment. He has no complaints at this time, denying dysuria and burning sensation with urination. He also denies chest pain, shortness of breath, nausea/vomiting and abdominal pain. Care coordination is following for placement. Review of Systems Review of Systems: All systems reviewed & are unremarkable except as noted in HPI and below Exam Narrative: AF RR 20 SPO2 95 BP 107/78 General: male in no acute respiratory distress who is nontoxic appearing, lying semi recumbent in bed. HEENT: Normocephalic. Atraumatic. Extraocular movement intact. Sclera clear and anicteric. No facial asymmetry. Chest: Lungs are clear to auscultation bilaterally. No wheezes or crackles. CV: Heart was regular rate and irregular rhythm. S1/S2. No murmurs, gallops, or rubs. Abd: Abdomen was soft. Nontender. Nondistended. Positive bowel sounds. No organomegaly or masses. Ext: No clubbing, cyanosis, or edema. 2+ DP pulses bilaterally. Neuro: Patient is alert and oriented x2-3 . Cranial nerves 2-12 are intact. Speech is clear. Objective Data Vital Signs Vital Signs: Vital Signs - 24 hr 04/12/24 20:32 04/12/24 20:41 04/12/24 21:27 Temperature 98.0 F Pulse Rate 80 80 83 Respiratory Rate 24 H 30 H Blood Pressure 141/79 H 129/71 Pulse Oximetry 95 98 Oxygen Delivery Room Air 04/12/24 23:07 04/12/24 23:46 04/13/24 06:00 Temperature 98.4
[2024-04-13] MEDS: DULoxetine HCL 30 MG CAPSULE.DR PO (09:41)
[2024-04-13] MEDS: oxyBUTYnin CHLORIDE XL 5 MG TAB.ER.24 10 MG PO (09:41)
[2024-04-13] MEDS: HYDROXYCHLOROQUINE SULFATE 200 MG TABLET 400 MG PO (09:41)
[2024-04-13] MEDS: BRIMONIDINE TARTRATE 0.2% OP SOLN 5 ML BTL 1 DROP EACH EYE ×2 (09:41→20:51)
[2024-04-13 09:44] VITALS: PULSE 54
[2024-04-13] MEDS: METOPROLOL TARTRATE 50 MG TAB PO ×2 (09:44→20:50)
[2024-04-13] MEDS: TIMOLOL MALEATE 0.5% OP SOLN 5 ML BOTTLE 1 DROP EACH EYE ×2 (09:45→20:51)
[2024-04-13] MEDS: ACETAMINOPHEN 500 MG TABLET 1000 MG PO (09:47)
[2024-04-13 17:27] VITALS: BP 128/79; PULSE 70; RESP 18; TEMP 36.6; O2SAT 95
[2024-04-13 20:50] VITALS: PULSE 74
[2024-04-13] MEDS: TAMSULOSIN HCL 0.4 MG CAPSULE 0.8 MG PO (20:50)
[2024-04-13] MEDS: LATANOPROST 0.005% OP SOLN 2.5 ML BTL 1 DROP EACH EYE (20:51)
[2024-04-13 21:15] VITALS: BP 136/87; PULSE 81; RESP 20; TEMP 36.7; O2SAT 98
[2024-04-13 21:56] VITALS: O2SAT 97
[2024-04-14 05:48] LABS: Basophils Absolute Auto 0.1 K/mm3 (0.0-0.1); Basophils Percent Auto 0.6 % (0.2-1.2); Eosinophils Absolute Auto 0.3 K/mm3 (0-0.3); Eosinophils Percent Auto 3.2 % (0-4.4); Hematocrit 38.4 % (42.0-52.0); Hemoglobin 12.6 g/dL (14.0-18.0); Immature Granulocyte Absolute 0.05 K/mm3 (0.00-0.031); Immature Granulocyte Percent A 0.6 % (0-0.5); Lymphocytes Absolute Auto 0.52 K/mm3 (0.9-3.2); Lymphocytes Percent Auto 6.1 % (18.3-44.2); Mean Corpuscular HGB Conc 32.8 g/dl (32-36); Mean Corpuscular Hemoglobin 35.5 pg (26-34); Mean Corpuscular Volume 108.2 fl (80-100); Mean Platelet Volume 9.6 fl (7.4-10.4); Monocytes Absolute Auto 1.1 K/mm3 (0.1-0.6); Monocytes Percent Auto 12.7 % (2.6-8.5); Neutrophils Absolute Auto 6.5 K/mm3 (1.3-6.7); Neutrophils Percent Auto 76.8 % (45.5-73.1); Platelet Count Result 161 k/mm3 (150-375); Red Blood Count 3.55 M/mm3 (4.6-6.20); Red Cell Distribution Width 12.4 % (11.5-14.5); White Blood Count 8.5 K/mm3 (4.5-10.0)
[2024-04-14 05:55] VITALS: BP 124/59; PULSE 89; RESP 20; TEMP 37.5; O2SAT 93
[2024-04-14 06:22] LABS: Albumin Level 3.7 g/dL (3.5-5.1)
[2024-04-14 06:23] LABS: Alanine Aminotransferase 35 U/L (6-50); Alkaline Phosphatase 54 U/L (38-126); Anion Gap 9 mmol/L (4-12); Aspartate Amino Transferase 33 U/L (17-59); Bilirubin,Total 0.8 mg/dL (0.2-1.3); Blood Urea Nitrogen 16 mg/dL (9-20); CRP 14.6 mg/dL (<1.0); Calcium 8.9 mg/dL (8.4-10.2); Carbon Dioxide 25 mmol/L (22-30); Chloride 99 mmol/L (98-107); Estimated CRCL calculation 56 ml/min; Estimated Glomerular Filt Rate 58; Glucose 106 mg/dL (65-110); Potassium 3.8 mmol/L (3.4-5.0); Sodium 133 mmol/L (137-145); Uric Acid 6.2 mg/dL (3.5-8.5)
[2024-04-14 07:08] LABS: Folic Acid > 20.0 ng/mL (2.76->20)
--- NOTE | 2024-04-14 08:22 | PC.NURSE ---
Patient off of unit to xray
[2024-04-14] MEDS: ENOXAPARIN 40 MG/0.4 ML SYRINGE SUB-Q (09:55)
[2024-04-14] MEDS: HYDROXYCHLOROQUINE SULFATE 200 MG TABLET 400 MG PO (09:55)
[2024-04-14] MEDS: TIMOLOL MALEATE 0.5% OP SOLN 5 ML BOTTLE 1 DROP EACH EYE ×2 (09:55→20:23)
[2024-04-14] MEDS: BRIMONIDINE TARTRATE 0.2% OP SOLN 5 ML BTL 1 DROP EACH EYE ×2 (09:55→20:23)
[2024-04-14 09:56] VITALS: PULSE 86
[2024-04-14] MEDS: oxyBUTYnin CHLORIDE XL 5 MG TAB.ER.24 10 MG PO (09:56)
[2024-04-14] MEDS: METOPROLOL TARTRATE 50 MG TAB PO ×2 (09:56→20:24)
[2024-04-14 10:00] VITALS: O2SAT 95
--- NOTE | 2024-04-14 11:58 | PM.IMPN ---
Progress Note: A&P Assessment and Plan (1) Acute UTI: Code(s): N39.0 - Urinary tract infection, site not specified Status: Acute Assessment and Plan: admit to regular medical floor Day 2 on Rocephin urine culture pansensitive (2) Altered mental status: Code(s): R41.82 - Altered mental status, unspecified Status: Acute Assessment and Plan: likely secondary to 1. alert and oriented x2, not to time (3) Paroxysmal atrial fibrillation: Onset Date: ~10/2019 Code(s): I48.0 - Paroxysmal atrial fibrillation Status: Acute Assessment and Plan: rate controlled (4) CKD stage 3a, GFR 45-59 ml/min: Code(s): N18.31 - Chronic kidney disease, stage 3a Status: Acute Assessment and Plan: continue to monitor BUN and creatinine (5) Foot pain, bilateral: Code(s): M79.671 - Pain in right foot; M79.672 - Pain in left foot Status: Acute Assessment and Plan: Patient complaining of bilateral foot pain and unable to bear weight with PT this morning CT bilateral foot pending PRN pain control and continue PT/OT further plans pending CT report Plan DVT prophylaxis on Sq Lovenox Subjective Date/time seen: 04/14/24 11:58 Interval history: Patient alert and oriented x2 unable to state the year and month, however was alert and sharp Patient unable to bear weight on his lower extremities due to feet pain CT bilateral feet ordered, PRN pain control meanwhile Review of Systems Review of Systems: All systems reviewed & are unremarkable except as noted in HPI and below ROS unobtainable: Yes unobtainable due to mental status ( delirium/confusion) Neurologic: Reports confusion Psychiatric: Psychiatric: Reports confusion Exam Narrative: AF RR 20 SPO2 95 BP 107/78 General: male in no acute respiratory distress who is nontoxic appearing, lying semi recumbent in bed. HEENT: Normocephalic. Atraumatic. Extraocular movement intact. Sclera clear and anicteric. No facial asymmetry. Chest: Lungs are clear to auscultation bilaterally. No wheezes or crackles. CV: Heart was regular rate and irregular rhythm. S1/S2. No murmurs, gallops, or rubs. Abd: Abdomen was soft. Nontender. Nondistended. Positive bowel sounds. No organomegaly or masses. Ext: No clubbing, cyanosis, or edema. 2+ DP pulses bilaterally. Neuro: Patient is alert and oriented x2-3 . Cranial nerves 2-12 are intact. Speech is clear. Const: General: comfortable, no acute distress, well developed, alert, awake, confusion and average body habitus Nutritional Appearance: average body habitus Orientation/consciousness: oriented to person and confusion Other: incoherent, nonsensical HENMT: Head: normal to inspection, normocephalic and atraumatic Ears: hearing grossly normal bilaterally Face/Nose/Sinus: normal facial exam Face and sinus: normal facial exam Eyes: General: appearance normal, both eyes and all related structures Pupils: Equal, round and reactive pupils present EOM: EOMs intact bilaterally Neck: Neck: full ROM, no lymphadenopathy and no JVD Thyroid: thyroid normal Lymphatic: no lymphadenopathy noted Resp: Effort & Inspection: normal respiratory effort and able to speak in complete sentences Auscultation: clear to auscultation bilaterally Cardio: Jugular venous distension: no JVD Rate: regular rate Rhythm: regular rhythm Heart sounds: S1 normal heart sound present and S2 normal heart sound present GI: Inspection: obesity : General: Yes deferred Skin: Rashes: no rashes Wounds: no wounds Neuro: General: oriented to person, no focal motor deficits, CN's II-XI intact bilaterally, confusion and Unable to assess gait Cranial nerves: Yes CN's II-XII intact bilaterally and Yes Equal, round and reactive pupils present Cognition (Neuro): normal cognition and abnormal cognition ( delirium) Speech: normal speech Gait exam (Neuro): Unable to assess gait Motor e
[2024-04-14 14:00] VITALS: BP 132/68; PULSE 86; RESP 18; TEMP 36.4; O2SAT 95
[2024-04-14] MEDS: HYDROcodone/acetaminophen (*CRX) 5-325 MG TABLET 1 TAB PO (14:56)
[2024-04-14] MEDS: LATANOPROST 0.005% OP SOLN 2.5 ML BTL 1 DROP EACH EYE (20:23)
[2024-04-14 20:24] VITALS: PULSE 66
[2024-04-14] MEDS: TAMSULOSIN HCL 0.4 MG CAPSULE 0.8 MG PO (20:24)
[2024-04-14 22:00] VITALS: BP 121/70; PULSE 52; RESP 16; TEMP 36.7; O2SAT 95
[2024-04-15 06:00] VITALS: BP 123/66; PULSE 82; RESP 16; TEMP 37.1; O2SAT 93
[2024-04-15 06:24] LABS: Basophils Absolute Auto 0.1 K/mm3 (0.0-0.1); Basophils Percent Auto 0.6 % (0.2-1.2); Eosinophils Absolute Auto 0.3 K/mm3 (0-0.3); Eosinophils Percent Auto 3.3 % (0-4.4); Hematocrit 36.5 % (42.0-52.0); Hemoglobin 12.1 g/dL (14.0-18.0); Immature Granulocyte Absolute 0.04 K/mm3 (0.00-0.031); Immature Granulocyte Percent A 0.5 % (0-0.5); Lymphocytes Absolute Auto 0.67 K/mm3 (0.9-3.2); Lymphocytes Percent Auto 8.2 % (18.3-44.2); Mean Corpuscular HGB Conc 33.2 g/dl (32-36); Mean Corpuscular Hemoglobin 34.6 pg (26-34); Mean Corpuscular Volume 104.3 fl (80-100); Mean Platelet Volume 8.9 fl (7.4-10.4); Monocytes Absolute Auto 1.1 K/mm3 (0.1-0.6); Monocytes Percent Auto 12.8 % (2.6-8.5); Neutrophils Absolute Auto 6.1 K/mm3 (1.3-6.7); Neutrophils Percent Auto 74.6 % (45.5-73.1); Platelet Count Result 175 k/mm3 (150-375); Red Cell Distribution Width 12.4 % (11.5-14.5); White Blood Count 8.2 K/mm3 (4.5-10.0)
[2024-04-15 06:40] LABS: Alanine Aminotransferase 35 U/L (6-50); Albumin Level 3.7 g/dL (3.5-5.1); Alkaline Phosphatase 55 U/L (38-126); Anion Gap 7 mmol/L (4-12); Aspartate Amino Transferase 29 U/L (17-59); Bilirubin,Total 0.7 mg/dL (0.2-1.3); Blood Urea Nitrogen 18 mg/dL (9-20); Calcium 8.8 mg/dL (8.4-10.2); Carbon Dioxide 28 mmol/L (22-30); Chloride 100 mmol/L (98-107); Estimated CRCL calculation 52 ml/min; Estimated Glomerular Filt Rate 53; Glucose 116 mg/dL (65-110); Potassium 3.8 mmol/L (3.4-5.0); Sodium 135 mmol/L (137-145)
[2024-04-15 09:24] VITALS: PULSE 94
[2024-04-15] MEDS: METOPROLOL TARTRATE 50 MG TAB PO ×2 (09:24→20:08)
[2024-04-15] MEDS: ENOXAPARIN 40 MG/0.4 ML SYRINGE SUB-Q (09:24)
[2024-04-15] MEDS: BRIMONIDINE TARTRATE 0.2% OP SOLN 5 ML BTL 1 DROP EACH EYE ×2 (09:25→20:09)
[2024-04-15] MEDS: TIMOLOL MALEATE 0.5% OP SOLN 5 ML BOTTLE 1 DROP EACH EYE ×2 (09:25→20:09)
[2024-04-15] MEDS: HYDROXYCHLOROQUINE SULFATE 200 MG TABLET 400 MG PO (09:25)
[2024-04-15] MEDS: oxyBUTYnin CHLORIDE XL 5 MG TAB.ER.24 10 MG PO (09:25)
[2024-04-15 14:00] VITALS: BP 116/83; PULSE 56; RESP 18; TEMP 36.6; O2SAT 93
--- NOTE | 2024-04-15 17:47 | WPDPN ---
Progress Note: A&P Assessment and Plan (1) Acute UTI: Code(s): N39.0 - Urinary tract infection, site not specified Status: Acute Assessment and Plan: admited to regular medical floor urine culture is growing Klebsiella pneumonia, Day 3 on Rocephin urine culture pansensitive (2) Altered mental status: Code(s): R41.82 - Altered mental status, unspecified Status: Acute Assessment and Plan: likely secondary to 1. alert and oriented x2, this morning patient is more improved (3) Paroxysmal atrial fibrillation: Onset Date: ~10/2019 Code(s): I48.0 - Paroxysmal atrial fibrillation Status: Acute Assessment and Plan: rate controlled (4) CKD stage 3a, GFR 45-59 ml/min: Code(s): N18.31 - Chronic kidney disease, stage 3a Status: Acute Assessment and Plan: continue to monitor BUN and creatinine (5) Foot pain, bilateral: Code(s): M79.671 - Pain in right foot; M79.672 - Pain in left foot Status: Acute Assessment and Plan: Patient complaining of bilateral foot pain and unable to bear weight with PT this morning CT bilateral foot showed articular osteoarthritis PRN pain control and continue PT/OT Plan DVT prophylaxis on Sq Lovenox Subjective Date/time seen: 04/15/24 17:47 Interval history: Patient alert and oriented x2 unable to state the year and month, today patient is more alert and communicates well, Patient unable to bear weight on his lower extremities due to feet pain CT bilateral feet showed articular OA, PRN pain control meanwhile Review of Systems Review of Systems: All systems reviewed & are unremarkable except as noted in HPI and below Objective Data Vital Signs Vital Signs: Vital Signs - 24 hr 04/14/24 20:24 04/14/24 20:00 04/14/24 22:00 Temperature 36.7 C Pulse Rate 66 52 L Respiratory Rate 16 Blood Pressure 121/70 Pulse Oximetry 95 Oxygen Delivery Room Air 04/15/24 06:00 04/15/24 09:24 04/15/24 09:25 Temperature 37.1 C Pulse Rate 82 94 Respiratory Rate 16 Blood Pressure 123/66 Pulse Oximetry 93 Oxygen Delivery Room Air 04/15/24 14:00 Temperature 36.6 C Pulse Rate 56 L Respiratory Rate 18 Blood Pressure 116/83 Pulse Oximetry 93 Oxygen Delivery Intake/Output Intake/Output: Intake & Output 04/12/24 04/13/24 04/14/24 04/15/24 23:59 23:59 23:59 23:59 Intake Total 50 830 1154 1422 Output Total 1150 1300 1200 Balance 87 -530 -858 005 Meds/Results Medications: Active Medications Generic Name Dose Route Start Last Admin Trade Name Freq PRN Reason Stop Dose Admin Acetaminophen 1,000 mg 04/13/24 02:10 04/13/24 09:47 Acetaminophen 500 Mg Tablet PO 1,000 mg Q6H PRN Administration Pain (Scale Score 1-3) Hydrocodone Bitart/Acetaminophen 1 tab 04/14/24 12:03 04/14/24 14:56 Hydrocodone/Acetaminophen (*Crx) 5-325 Mg Tablet PO 1 tab Q6H PRN Administration Pain Rated 4-6 Brimonidine Tartrate 1 drop 04/13/24 09:00 04/15/24 09:25 Brimonidine Tartrate 0.2% Op Soln 5 Ml Btl EACH EYE 1 drop Q12HR MART Administration Enoxaparin Sodium 40 mg 04/14/24 09:00 04/15/24 09:24 Enoxaparin 40 Mg/0.4 Ml Syringe SUB-Q 40 mg DAILY MART Administration Hydroxychloroquine Sulfate 400 mg 04/13/24 08:00 04/15/24 09:25 Hydroxychloroquine Sulfate 200 Mg Tablet PO 400 mg DAILY@0800 MART Administration Ceftriaxone Sodium 1 gm in 50 mls @ 100 mls/hr 04/13/24 21:00 04/14/24 20:53 Rocephin 1 Gm/Ns 50 Ml IVPB Infused Q24H MART Infusion Latanoprost 1 drop 04/13/24 21:00 04/14/24 20:23 Latanoprost 0.005% Op Soln 2.5 Ml Btl EACH EYE 1 drop HS MART Administration Metoprolol Tartrate 50 mg 04/13/24 09:00 04/15/24 09:24 Metoprolol Tartrate 50 Mg Tab PO 50 mg Q12HR MART Administration Ondansetron HCl 4 mg 04/12/24 22:52 Ondansetron Inj 4 Mg/2 Ml Vial IV PUSH Q4H PRN Nausea
[2024-04-15 20:08] VITALS: PULSE 60
[2024-04-15] MEDS: TAMSULOSIN HCL 0.4 MG CAPSULE 0.8 MG PO (20:08)
[2024-04-15] MEDS: LATANOPROST 0.005% OP SOLN 2.5 ML BTL 1 DROP EACH EYE (20:09)
[2024-04-15 22:00] VITALS: BP 129/77; PULSE 64; RESP 20; TEMP 36.7; O2SAT 100
[2024-04-16 05:36] LABS: Basophils Absolute Auto 0.1 K/mm3 (0.0-0.1); Basophils Percent Auto 0.8 % (0.2-1.2); Eosinophils Absolute Auto 0.3 K/mm3 (0-0.3); Eosinophils Percent Auto 4.2 % (0-4.4); Hematocrit 37.2 % (42.0-52.0); Hemoglobin 12.2 g/dL (14.0-18.0); Immature Granulocyte Absolute 0.05 K/mm3 (0.00-0.031); Immature Granulocyte Percent A 0.6 % (0-0.5); Lymphocytes Absolute Auto 0.82 K/mm3 (0.9-3.2); Lymphocytes Percent Auto 10.5 % (18.3-44.2); Mean Corpuscular HGB Conc 32.8 g/dl (32-36); Mean Corpuscular Hemoglobin 34.7 pg (26-34); Mean Corpuscular Volume 105.7 fl (80-100); Monocytes Percent Auto 12.6 % (2.6-8.5); Neutrophils Absolute Auto 5.6 K/mm3 (1.3-6.7); Neutrophils Percent Auto 71.3 % (45.5-73.1); Platelet Count Result 188 k/mm3 (150-375); Red Blood Count 3.52 M/mm3 (4.6-6.20); Red Cell Distribution Width 12.5 % (11.5-14.5); White Blood Count 7.8 K/mm3 (4.5-10.0)
[2024-04-16 05:45] LABS: Alanine Aminotransferase 33 U/L (6-50); Albumin Level 3.8 g/dL (3.5-5.1); Alkaline Phosphatase 54 U/L (38-126); Anion Gap 9 mmol/L (4-12); Aspartate Amino Transferase 27 U/L (17-59); Bilirubin,Total 0.6 mg/dL (0.2-1.3); Blood Urea Nitrogen 19 mg/dL (9-20); Calcium 8.8 mg/dL (8.4-10.2); Carbon Dioxide 25 mmol/L (22-30); Chloride 101 mmol/L (98-107); Estimated CRCL calculation 52 ml/min; Estimated Glomerular Filt Rate 53; Glucose 97 mg/dL (65-110); Potassium 3.5 mmol/L (3.4-5.0); Sodium 135 mmol/L (137-145)
[2024-04-16 06:00] VITALS: BP 119/64; PULSE 100; RESP 18; TEMP 36.8; O2SAT 96
[2024-04-16 06:31] LABS: Macrocytosis 1+ (NORMAL); Platelet Estimate Adequate (Adequate); Schistocytes None Seen
[2024-04-16] MEDS: HYDROXYCHLOROQUINE SULFATE 200 MG TABLET 400 MG PO (08:53)
[2024-04-16] MEDS: ENOXAPARIN 40 MG/0.4 ML SYRINGE SUB-Q (08:53)
[2024-04-16 08:54] VITALS: PULSE 87
[2024-04-16] MEDS: oxyBUTYnin CHLORIDE XL 5 MG TAB.ER.24 10 MG PO (08:54)
[2024-04-16] MEDS: METOPROLOL TARTRATE 50 MG TAB PO (08:54)
[2024-04-16 09:00] VITALS: BP 118/88
[2024-04-16] MEDS: TIMOLOL MALEATE 0.5% OP SOLN 5 ML BOTTLE 1 DROP EACH EYE (09:00)
[2024-04-16] MEDS: BRIMONIDINE TARTRATE 0.2% OP SOLN 5 ML BTL 1 DROP EACH EYE (09:00)
--- NOTE | 2024-04-16 11:05 | PM.DS ---
DS: Admitting Diagnosis Discharge Date 04/16/24 Admitting Diagnosis altered mental status DS: Discharge Diagnosis Discharge Diagnosis (1) Acute UTI: Code(s): N39.0 - Urinary tract infection, site not specified Status: Acute (2) Foot pain, bilateral: Code(s): M79.671 - Pain in right foot; M79.672 - Pain in left foot Status: Acute (3) Altered mental status: Code(s): R41.82 - Altered mental status, unspecified Status: Acute (4) Paroxysmal atrial fibrillation: Onset Date: ~10/2019 Code(s): I48.0 - Paroxysmal atrial fibrillation Status: Acute (5) CKD stage 3a, GFR 45-59 ml/min: Code(s): N18.31 - Chronic kidney disease, stage 3a Status: Acute DS: Summary Hospital Course Hospital Course: patient was just discharged home after he was treated for sepsis 2/2 UTI as patient has history of recurrent UTI, patient was stable at the time of discharged however upon arrival at home patient was more confused, weak and was unable to on his due to pain, family felt patient need more care and the patient need a placement, Ct scan of the feet showed articular arthritis patient worked with PT, patient is more alert and oriented and to his baseline. today will discharge patient to SNF. Time Spent with Patient Time attestation: Total time spent providing and/or coordinating discharge services: DS: Data Data Completed and Pending Labs on day of discharge: Labs from last 24 hours 04/16/24 05:20 WBC 7.8 RBC 3.52 L Hgb 12.2 L Hct 37.2 L MCV 105.7 H MCH 34.7 H MCHC 32.8 RDW 12.5 Plt Count 188 MPV 9.0 Immature Gran % (Auto) 0.6 H Neut % (Auto) 71.3 Lymph % (Auto) 10.5 L Kimball % (Auto) 12.6 H Eos % (Auto) 4.2 Baso % (Auto) 0.8 Lymph # (Auto) 0.82 L Kimball # (Auto) 1.0 H Eos # (Auto) 0.3 Baso # (Auto) 0.1 Abs Immat Gran (auto) 0.05 H Absolute Neuts (auto) 5.6 Absolute Nucleated RBC 0.000 Nucleated RBC % 0.0 Platelet Estimate Adequate Macrocytosis 1+ Schistocytes None seen Sodium 135 L Potassium 3.5 Chloride 101 Carbon Dioxide 25 Anion Gap 9 BUN 19 Creatinine 1.30 Estim Creat Clear Calc 52 Estimated GFR 53 L Glucose 97 Calcium 8.8 Total Bilirubin 0.6 AST 27 ALT 33 Alkaline Phosphatase 54 Total Protein 7.0 Albumin 3.8 Discharge Plan Discharge Attending physician on discharge: Eva Diaz Consulting providers: Francisco Pérez; Rush Owens; Melody Shelby; Eva Diaz; Jcaiel Arroyo V.; Micah León Discharging Clinician: Adolfo Mccarty Patient Disposition: SNF Activity: as tolerated Diet: heart healthy Discharge Instructions: patient to follow up with his primary care provider as soon as possible Stand Alone Forms: General Discharge Information Discharge Medications: New cefdinir 300 mg capsule 300 mg PO Q12H Qty: 7 0RF Continued hydroxychloroquine 200 mg tablet 400 mg PO DAILY Qty: 180 1RF duloxetine 30 mg capsule,delayed release(DR/EC) 30 mg PO BID Qty: 60 4RF travoprost 0.004 % drops 1 drp EACH EYE HS folic acid 1 mg tablet 1 mg PO BID potassium citrate 15 mEq tablet extended release 15 meq PO BID brimonidine-timolol 0.2-0.5 % drops 1 drp EACH EYE Q12H acetaminophen 500 mg capsule 1,000 mg PO Q6H PRN (Reason: Pain (Scale Score 1-3)) Systane Ultra 0.4-0.3 % Drops 1 drp EACH EYE QID PRN (Reason: Dry Eye(S)) prednisolone acetate 1 % drops,suspension 1 drp LEFT EYE TID oxybutynin chloride 10 mg tablet extended release 24hr 10 mg PO DAILY tamsulosin 0.4 mg capsule 0.8 mg PO HS metoprolol tartrate 50 mg tablet 50 mg PO BID Qty: 180 1RF Held Myrbetriq 25 mg tablet extended release 24 hr 25 mg PO DAILY Hold Instructions: until seen by his primary care provider lisinopril 10 mg tablet 10 mg PO DAILY Qty: 90 1RF Hold Instructions: until seen by az
[2024-04-17 12:39] LABS: Homocysteine 14.7 umol/L (<11.4)
[2024-04-22 15:04] LABS: Methylmalonic Acid 205 nmol/L (69-390)
== END 2024-04-16 15:45 | DRG 690 ==
LOC: ANHED 22:52 → ANH3MED 23:03
PROVIDERS: Internal Medicine; Student in an Organized Health Care Education/Training Program; Admitting Provider Internal Medicine; Emergency Provider Emergency Medicine; PCP Family Medicine; Visit Provider Family Medicine
DX: N39.0 Urinary tract infection, site not specified (principal); I12.9 Hypertensive chronic kidney disease with stage 1 through stage 4 chronic kidney disease, or unspecified chronic kidney disease; N18.31 Chronic kidney disease, stage 3a; E55.9 Vitamin D deficiency, unspecified; G51.0 Bell's palsy; I87.2 Venous insufficiency (chronic) (peripheral); I48.0 Paroxysmal atrial fibrillation; K76.0 Fatty (change of) liver, not elsewhere classified; M06.9 Rheumatoid arthritis, unspecified; M10.9 Gout, unspecified; M79.671 Pain in right foot; M79.672 Pain in left foot; N40.0 Benign prostatic hyperplasia without lower urinary tract symptoms; Z86.711 Personal history of pulmonary embolism; Z90.49 Acquired absence of other specified parts of digestive tract; Z87.891 Personal history of nicotine dependence
CPT/HCPCS: 36415; 70450; 71046; 73620; 73700; 80053; 81001; 82607; 82746; 83090; 83921; 84550; 85025; 85610; 85730; 86140; 87086; 93005; 96365; 97110; 97116; 97161; 97166; 97530; 99285; A9270; G0378; J0696; J1650

== ENCOUNTER 2025-05-10 03:35 | Emergency (ER) | payer MEDICARE, SELFPAY ==
--- OUTSIDE RECORDS SUMMARY | 2004-03-14 19:00 | XMS_ITS | Continuity of Care Document ---
Author Organization [facility] Address [address] [place] [address] Phone Care Team Providers Care Law Reporter Name Role Phone Elina Acosta Unavailable Unavailable Advance Directives Directive Yes / No Effective Date File Name No Information Encounters Encounter Description Practice Location Reason(s) For Visit Diagnoses Date Provider Providers Copied on Encounter [facility], [address], [place], [place], [id number], [place] tel:[phone] [facility] No Information 4-200 4 Karla Antoine. [address] [facility] , [address], [place], [address], [place]. tel:[phone] Family History Family Member Type Diagnosis Age At Onset No Information Payers Payer name Insurance type Covered libertarian ID Authoriza tion(s) No Information Social History Type Description Quantity Date Captured Comments Sex Male Smoking Status No Information Chief Complaint And Reason For Visit No Information Reason For Referral Reason For Referral No Information History Of Present Illness Encounter Date Complaint History Of Prese nt Illness No Information Functional Status Date Functional Assessmen t No Information Instructions Date Instruction Additional Infor mation No Information Assessments Type Assessment Date No Information Patient Care Teams Name Effective Dates (start - stop) Status Members No Information
[2025-05-10 03:36] VITALS: BP 139/82; PULSE 103; RESP 18; TEMP 36.8; O2SAT 94
--- NOTE | 2025-05-10 04:12 | ED.MALEGU ---
HPI - Male Genitourinary General Chief complaint: Urogenital-Male Stated complaint: UNABLE TO URINATE Time Seen by Provider: 05/10/25 03:57 Source: patient Mode of arrival: EMS Limitations: no limitations History of Present Illness HPI Narrative: 79-year-old was brought in by EMS from home with the complaints of unable to urinate for last 4 days no having lot of discomfort in the lower abdomen. He states that he has prostate issues and does follow with Dr. Walker . Denies any fever or chills no history of nausea vomiting. Denies any blood in the urine. MD Complaint: other (unable to urinate) Onset (ago): day(s) (4) Duration: constant Severity: moderate Quality: aching Relieving factors: none Exacerbating factors: none Associated symptoms: Reports denies other symptoms Related Data Home Medications ?Medication ?Instructions ?Recorded ?Confirmed ?Last Taken ?Type potassium citrate 15 mEq (1,620 15 meq PO BID 03/14/23 03/04/25 09/18/23 History mg) tablet,extended release brimonidine 0.2 %-timolol 0.5 % 1 drp EACH EYE Q12H 03/28/23 03/04/25 09/18/23 History eye drops mirabegron 25 mg tablet,extended 25 mg PO DAILY 07/30/23 03/04/25 09/18/23 History release 24 hr (Myrbetriq) tamsulosin 0.4 mg capsule 0.8 mg PO HS 04/13/24 03/04/25 Unknown History diclofenac sodium 1 % topical gel 2 g topical QID 08/20/24 03/04/25 Unknown History acetaminophen 500 mg capsule 1,000 mg PO BID PRN Pain (Scale 11/11/24 03/04/25 Unknown History Score 1-3) cephalexin 250 mg capsule 250 mg PO DAILY 11/11/24 03/04/25 Unknown History Allergies Allergy/AdvReac Type Severity Reaction Status Date / Time No Known Drug Allergies Allergy Mild unknown Verified 03/04/25 11:35 Review of Systems Review of Systems: All systems reviewed & are unremarkable except as noted in HPI and below Constitutional: Constitutional: Reports no additional constitutional complaints Eyes: Eyes: Reports no additional eye complaints ENT: Reports system reviewed and no additional complaints, except as documented Cardiovascular: Cardiovascular: Reports no additional cardiovascular complaints Respiratory: Respiratory: Reports no additional respiratory complaints Gastrointestinal: Gastrointestinal: Reports no additional gastrointestinal complaints Genitourinary: Genitourinary: Reports as per HPI Musculoskeletal: Musculoskeletal: Reports no additional musculoskeletal complaints [facility] Past Medical History Medical History Recurrent UTI 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 Transient ischemic attack (~2014) Paroxysmal atrial fibrillation (~10/2019) associated with sepsis Retinal vein occlusion of left eye Pre-diabetes Hemoglobin A1c was 6.3% in April 2019. Overactive bladder Essential hypertension Khoury palsy (~2018) Vitamin D deficiency Rheumatoid arthritis with rheumatoid factor of multiple sites without organ or systems involvement Glaucoma Osteoarthritis Hypogonadism in male Uses testosterone gel. 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 History of lithotripsy (~08/2022) Cystoscopy, left retrograde pyelography, left ureteroscopy with laser lithotripsy and stone extraction, left ureteral stent replacement History of lithotripsy (~02/2023) Cystoscopy, left ureteroscopy with laser lithotripsy, stone extraction stent placement History of ureter stent (~03/2023) Cystoscopy, left ureteroscopy with stone extraction and left ureteral stent placement History of glaucoma tube shunt procedure (~06/2023) Left H/O colonoscopy with polypectomy History of ureter stent (~10/2022) cystoscopy, left retrograde pyelogram and placement of left 6fr variable length stent Hx of lithotripsy (~04/2022) Left ESWL History of cystoscopy (~05/2022) cystoscopy, left retrograde pyelography and left ureteral stent placement History of left cataract surgery (~2009) History of appendectomy (~1958) Family History Family History Father Diabetes mellitus Acute myocardial infarction Heart disease Hypertension Mother Cerebrovascular accident Social History Social History Social History: The patient lives in [place] with his . They have 3 sons and 1 daughter. He smoked up to 3 packs of cigarettes per day and quit 1995. No alcohol or drug abuse. 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 [employer] Code status: Full code Surrogate decision maker: Dariusz () Smoking packs per day: 3 Smoking cigarettes per day: 60.0 Years smoked: 34 Smoking pack-years: 102.00 Smoking status: Former smoker Second hand tobacco smoke exposure: No Additional smoking assessment comments: pt states he started smoking at age 20 Alcohol intake: never Substance use: never Substance use type: does not use Current Housing: Decline to Answer Concerned About Future Housing: Decline to Answer Difficulty Paying Gas/Electric Bills: Decline to Answer Difficulty Paying for Meds: Decline to Answer Currently Unemployed: Decline to Answer Education: Decline to Answer Difficulty w/ Childcare or Family Care: Decline to Answer Living arrangements: with family Additional living arrangements comments: - [facility] Gender identity (if verbalized by the patient): Male Sexual Orientation (if Verbalized by the Patient): Straight or Heterosexual Spiritual care concerns: No Agree to blood products: Yes Exam Narrative: GENERAL: Well-appearing, well-nourished, and in no acute distress. HEAD: Normocephalic, atraumatic. EYES: PERRLA and EOMI. ENT: Nares clear, no rhinorrhea or epistaxis. Mucous membranes moist. NECK: Supple. CHEST: Clear to auscultation. No respiratory distress. HEART: Regular rate and rhythm. No murmur heard. Normal peripheral pulses. ABDOMEN: Soft, nontender, nondistended, normal active bowel sounds. EXTREMITIES: Normal range of motion. No edema. SKIN: Warm, dry, no rash. NEURO: No focal deficits. Alert and oriented x3. PSYCH: Normal mood and affect. Course Course Emergency Course: His bladder scan showed about 840 mL of urine will place a De Leon catheter. Vital Signs Vital signs: Vital Signs Temperature 36.8 C 05/10/25 03:36 Pulse Rate 103 H 05/10/25 03:36 Respiratory Rate 18 05/10/25 03:36 Blood Pressure 139/82 05/10/25 03:36 Pulse Oximetry 94 05/10/25 03:36 Temperature 36.8 C 05/10/25 03:36 Pulse Rate 103 H 05/10/25 03:36 Respiratory Rate 18 05/10/25 03:36 Blood Pressure 139/82 05/10/25 03:36 Pulse Oximetry 94 05/10/25 03:36 MDM - Male Genitourinary Lab Data Labs: Lab Results 05/10/25 Range/Units 04:07 Urine Color Yellow (Yellow) Urine Appearance Clear (Clear) Urine pH 5.0 (5.0-9.0) Ur Specific [place] 1.015 (1.001-1.035) Urine Protein 1+ H (Negative) mg/dL Urine Glucose (UA) Negative (Negative) mg/dL Urine Ketones Negative (Negative) mg/dL Ur Blood (Man) 2+ H (Negative) Urine Nitrate Negative (Negative) Urine Bilirubin Negative (Negative) Urine Urobilinogen 0.2 (<2.0) mg/dL Leukocyte Esterase Rfl 2+ H (Negative) ARASH/UL Urine RBC 3-5 H (0-2) /hpf Urine WBC 51-100 H (0-3) /hpf Ur Squamous Epith Cells None seen (Few) /hpf Urine Bacteria None seen /hpf Urine Casts 0-2 Discharge Plan Discharge Clinical Impression: Acute urinary retention Patient Disposition: Home Condition: Stable Instructions: Urinary Retention in Men (ED) Additional Instructions: continue homem adithya , follow with Dr. Walker Patient Language: Occitan Prescriptions: No Action Myrbetriq 25 mg tablet extended release 24 hr 25 mg PO DAILY hydroxychloroquine 200 mg tablet 400 mg PO DAILY Qty: 180 1RF duloxetine 30 mg capsule,delayed release(DR/EC) 30 mg PO BID Qty: 60 4RF diclofenac sodium 1 % gel 2 g topical QID Rx Instructions: apply to single elbow, wrist or hand; for hand includes palm/fingers/back of hand cephalexin 250 mg capsule 250 mg PO DAILY potassium citrate 15 mEq tablet extended release 15 meq PO BID brimonidine-timolol 0.2-0.5 % drops 1 drp EACH EYE Q12H acetaminophen 500 mg capsule 1,000 mg PO BID PRN (Reason: Pain (Scale Score 1-3)) tamsulosin 0.4 mg capsule 0.8 mg PO HS metoprolol tartrate 50 mg tablet 50 mg PO BID Qty: 180 1RF lisinopril 10 mg tablet 10 mg PO DAILY Qty: 90 1RF Follow-up/Referrals: Bubba Cho MD [Primary Care Provider, Family Practice] Pablo Walker MD [Physician, Urology] Time of Disposition: 05:29
--- OUTSIDE RECORDS SUMMARY | 2025-05-10 04:14 | XMS_ITS | Clinical Summary ---
Author Organization [facility] [employer] Address [address] [place] [address] Care Team Providers Care Claims Counsel Name Role Phone Jacinto aMrion MD Primary Care Provider [phone] Source Comments [facility] [employer],non-owned Affiliates and Associated Physician Practices is amultiple site organization consisting of ambulatory clinics and hospital sitesin [place], [place], [place] and [place]. This disclosure is being madepursuant to the Care Everywhere program and may not contain all information available regarding this patient. Last updated 18.[facility] [employer] Allergies No known active allergies Immunizations Immunization Administration Dates Next Due INFLUENZA VACCINE, HIGH-DOSE , QUADR. (FLUZONE HIGH-DOSE QUADRIVALENT; 65Y+), 0.7 ML (HD-IIV4) 05/10/2020 Social History Tobacco Use Types Packs/Day Years Used Date Smoking Tobacco: Never Assessed Sex and Gender Information Value Date Recorded Sex Assigned at Not on file Legal Sex Male 2:41 PM CDT Gender Identity Not on file Sexual Orientation Not on file Plan of Treatment Health Maintenance Due Date Last Done Comments MEDICARE AWV 12 MONTHS 1944 DTAP/TDAP/TD VACCINES (1 - Tdap) 12/30/1963 PNEUMOCOCCAL VACCINE 50+ (1 of 1 - PCV) 1994 ZOSTER VACCINE (1 of 2) 1994 Respiratory Syncytial Virus (RSV) Vaccine Pt: or over 60 yrs (1 - 1-dose 75+ series) 12/30/2019 DEPRESSION SCREENING 07/23/2024 COVID-19 VACCINE ( - 2023-2 5 season) 2025 INFLUENZA VACCINE (#1) 2025 05/10/2020 HEPATITIS B VACCINE Aged Out No longe r eligible based on patient's age to complete this topic HIB VACCINE Aged Out No longer eligi ble based on patient's age to complete this topic HPV VACCINE Aged Out No longer eligi ble based on patient's age to complete this topic MENINGOCOCCAL (Group B) VACC INE SHARED DECISION-MAKING Aged Out No longer eligibl e based on patient's age to complete this topic MENINGOCOCCAL GROUPS A/C/Y/W VACCINE Aged Out No longer eligible b ased on patient's age to complete this topic Insurance MEDICARE [facility] MEDICARE MEDICARE MEDICARE Member Subscriber Plan / Payer (Ef fective for All Dates) Name:Shant Kebede Member ID:[id number] Relation to Subscriber:Self Name:SHANT KEBEDE Subscriber ID:[id number] Payer ID:Not on file Group ID:Not on file Type:Medicare Address: [place] [phone] MEDICARE Member Subscriber Plan / Payer (Ef fective for All Dates) Name:Shant Kebede Member ID:[id number] Relation to Subscriber:Self Name:SHANT KEBEDE Subscriber ID:[id number] Payer ID:Not on file Group ID:Not on file Type:Medicare Address: [place] [phone] MEDICARE MEDICARE [facility] MEDICARE AAR MEDICARE Member Subscriber Plan / Payer (Ef fective for All Dates) Name:KebedeShant aden Member ID:[id number] Relation to Subscriber:Self Name:Shant Kebede Subscriber ID:[id number] Payer ID:Not on file Group ID:Not on file Type:Medicare Address: [address] MEDICARE Member Subscriber Plan / Payer (Ef fective for All Dates) Name:Kebede, Shant Member ID:[id number] Relation to Subscriber:Self Name:KebedeShant aden Subscriber ID:[id number] Payer ID:Not on file Group ID:Not on file Type:Medicare Address: [address] Member Subscriber Plan / Payer (Ef fective for All Dates) Name:Shant Kebede Member ID:Not on file Relation to Subscriber:Self Name:Shant Kebede Subscriber ID:Not on file Payer ID:Not on file Group ID:Not on file Type:Commercial Address: [place] [phone] Member Subscriber Plan / Payer (Ef fective for All Dates) Name:Shant Kebede Member ID:[id number] Relation to Subscriber:Self Name:Delio Shant Subscriber ID:[id number] Payer ID:Not on file Group ID:Not on file Type:Medicare Address: [address] AARP Member Subscriber Plan / Payer (Ef fective for All Dates) Name:Shant Kebede Member ID:Not on file Relation to Subscriber:Self Name:Shant Kebede Subscriber ID:Not on file Payer ID:Not on file Group ID:Not on file Type:Commercial Address: [place] [phone] Care Teams Claims Counsel Relationship Specialty Start Date End Date Jacinto Marion MD [address] [place] [address] PCP - General 10/19/22
--- OUTSIDE RECORDS SUMMARY | 2025-05-10 04:14 | XMS_ITS | Clinical Summary ---
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
--- OUTSIDE RECORDS SUMMARY | 2025-05-10 04:14 | XMS_ITS | Clinical Summary ---
Author Organization [facility] Address [address] [place] [address] Care Team Providers Care Butter Maker Name Role Phone Campbell Cho MD Primary Care Provider Allergies No known active allergies Medications dorzolamide (TRUSOPT) 2 % solution INSTILL 1 DROP IN LEFT EYE THREE TIMES DAILY 0 Active travoprost (TRAVATAN Z) 0.004 % solution INT 1 GTT IN OU QPM. 0 Active lisinopriL (PRINIVIL) 10 mg tablet Take 10 mg by mouth daily. 0 Active oxybutynin chloride (DITROPAN XL) 10 mg Extended Release 24 hour tablet Take 10 mg by mouth daily. Active hydrOXYchloroQU INE (PLAQUENIL) 200 mg tablet TK 2 T PO D 0 Active metoprolol tartrate (LOPRESSOR) 50 mg tablet Take 50 mg by mouth every 12 hours. 0 Active brimonidine-saul oloL (Combigan) 0.2-0.5 % solution 1 Active Tadalafil (Cialis) 10 mg tablet Take 10 mg by mouth Continuous as needed for Erectile Dysfunction. Active diclofenac sodium (VOLTAREN) 1 % gel APPLY 2 GRAMS TOPICALLY TO PAINFUL AREAS FOUR TIMES DAILY 2 Active potassium citrate (UROCIT-K) 15 mEq Extended Release tablet Take 15 mEq by mouth 2 times daily. 3 Active tamsulosin (FLOMAX) 0.4 mg capsule Take 0.4 mg by mouth daily. 3 Active folic acid (FOLVITE) 1 mg tablet TAKE 1 TABLET(1 MG) BY MOUTH TWICE DAILY 60 Tablet 4 4 Active Active Problems Problem Noted Date Diagnosed Date Acute pulmonary embolism 09/07/2021 Family History Relation Name Status Comments Brother Daughter Alive Father Mother Sister Alive Son 1 Alive Son 2 Alive Son 3 Alive Son 4 Alive Social History Tobacco Use Types Packs/Day Years Used Date Smoking Tobacco: Former Smokeless Tobacco: Never Tobacco Cessation:Counseling Given: Not Answered Alcohol Use Standard Drinks/Week Comments Never 0 (1 standard drink = 0.6 oz pur e alcohol) Sex and Gender Information Value Date Recorded Sex Assigned at Not on file 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 Gender Identity Not on file Sexual Orientation Not on file Last Filed Vital Signs Vital Sign Reading Time Taken Comments Blood Pressure 119/74 02/27/2023 2:39 PM CDT Pulse 65 02/27/2023 2:39 PM CDT Temperature 36.9 C (98.4 F) 02/27/2023 2:39 PM CDT Respiratory Rate 18 02/27/2023 2:39 PM CDT Oxygen Saturation 95% 02/27/2023 2:39 PM CDT Inhaled Oxygen Concentration - - Weight 106.9 kg (235 lb 9.6 oz) 02/27/2023 2:39 PM CDT Height 177.8 cm (5' 10) 05/22/2022 11: 00 AM CDT Body Mass Index 33.81 05/22/2022 11:00 AM CDT Plan of Treatment Health Maintenance Due Date Last Done Comments ZOSTER VACCINE (2 of 2) 07/02/2018 05/07/2018, 08/02 RSV VACCINE (60+ or ) (1 - 1-dose 75+ series) 12/30/2019 INFLUENZA VACCINE (#1) 2025 05/10/2020, 2017 DTAP/TDAP/TD VACCINES (3 - T d or Tdap) 12/16/2029 12/17/2019, 11/22/2009 PNEUMOCOCCAL VACCINE 50+ YEARS Completed 0 08/02/2017, 07/30/2014, 12/23/2009 COLORECTAL SCREENING Discontinued 09/19/2023 Colorectal Cancer Screening Discontinued FIT-DNA Q 3 years Discontinued FIT/FOBT Q 1 year Discontinued Flex Sig/CT Colonography Q 5 years Discontinued Insurance MEDICARE PART A AND B [facility] [id number] Care Teams Butter Maker Relationship Specialty Start Date End Date Campbell Cho MD [address] [place] [address] PCP - General Family Practice 09/07/21
[2025-05-10 04:20] LABS: Add Urine Microscopic? YES; Appearance Urine Clear (Clear); Glucose Urine UA Negative (Negative); Leukocyte Esterase Ur 2+ LEU/UL (Negative); Nitrate Urine Negative (Negative); Non Pathogenic Casts 0-2; Specific Grav Ur 1.015 (1.001-1.035)
[2025-05-10 05:49] VITALS: BP 138/75; PULSE 85; RESP 20; TEMP 36.5; O2SAT 98
== END 2025-05-10 05:50 | disposition home or self-care (01) ==
PROVIDERS: Emergency Provider Family Medicine; PCP Family Medicine
DX: R33.9 Retention of urine, unspecified (principal); I12.9 Hypertensive chronic kidney disease with stage 1 through stage 4 chronic kidney disease, or unspecified chronic kidney disease; N18.31 Chronic kidney disease, stage 3a; I48.0 Paroxysmal atrial fibrillation; E55.9 Vitamin D deficiency, unspecified; R73.03 Prediabetes; M05.79 Rheumatoid arthritis with rheumatoid factor of multiple sites without organ or systems involvement; M19.90 Unspecified osteoarthritis, unspecified site; N32.81 Overactive bladder; H40.9 Unspecified glaucoma; Z87.442 Personal history of urinary calculi; Z87.440 Personal history of urinary (tract) infections; Z86.711 Personal history of pulmonary embolism; Z86.16 Personal history of COVID-19; Z85.46 Personal history of malignant neoplasm of prostate; Z86.73 Personal history of transient ischemic attack (TIA), and cerebral infarction without residual deficits; Z85.828 Personal history of other malignant neoplasm of skin; Z87.891 Personal history of nicotine dependence; Z98.42 Cataract extraction status, left eye; Z79.899 Other long term (current) drug therapy
CPT/HCPCS: 51702; 81001; 87086; 99283

== ENCOUNTER 2025-05-14 18:53 | Emergency (ER) | payer MEDICARE, SELFPAY ==
--- OUTSIDE RECORDS SUMMARY | 2004-03-14 19:00 | XMS_ITS | Continuity of Care Document ---
Author Organization [facility] Address [address] [place] [address] Phone Care Team Providers Care Filter Press Operator Name Role Phone Elina Acosta Unavailable Unavailable Advance Directives Directive Yes / No Effective Date File Name No Information Encounters Encounter Description Practice Location Reason(s) For Visit Diagnoses Date Provider Providers Copied on Encounter [facility], [address], [place], [place], [id number], [place] tel:[phone] [facility] [place] No Information 4-200 4 Karla Antoine. [address] [facility] , [address], [place], [address], [place]. tel:[phone] Family History Family Member Type Diagnosis Age At Onset No Information Payers Payer name Insurance type Covered republican ID Authoriza tion(s) No Information Social History [...]
[2025-05-14] VITALS (21 sets, daily range): BP systolic 110–143; BP diastolic 59–100; PULSE 95–156; RESP 13–34; TEMP 36.8; O2SAT 90–97
--- NOTE | ~2025-05-14 | XR_ITS ---
XR chest 1V portable INDICATION:tachy . REFERENCE: None FINDINGS: A single AP of the chest demonstrates normal heart size. The lungs are clear. There is no evidence of pneumothorax or pleural effusion. IMPRESSION: No acute pulmonary findings. Reviewed, dictated and finalized at location S.
--- OUTSIDE RECORDS SUMMARY | 2025-05-14 18:55 | XMS_ITS | Clinical Summary ---
Author Organization [facility] [employer] Address [address] [place] [address] Care Team Providers Care Edging Catcher Name Role Phone Jacinto Marion MD Primary Care Provider [phone] Source Comments [facility] [employer],non-owned Affiliates and Associated Physician Practices is amultiple site organization consisting of ambulatory clinics and hospital sitesin [place], [place], [place] and [place]. This disclosure is being madepursuant to the Care Everywhere program and may not contain all information available regarding this patient. Last updated 18.[facility] [employer] Allergies No known active allergies Immunizations Immunization [...] age to complete this topic Insurance MEDICARE [facility] MEDICARE MEDICARE MEDICARE Member Subscriber Plan / Payer (Ef fective for All Dates) Name:Shant Kebede Member ID:[id number] Relation to Subscriber:Self Name:SHANT KEBEDE Subscriber ID:[id number] Payer ID:Not on file Group ID:Not on file Type:Medicare Address: [place] [phone] MEDICARE Member Subscriber Plan / Payer (Ef fective for All Dates) Name:Shant Kebede Member ID:[id number] Relation to Subscriber:Self Name:SHANT KEBEDE Subscriber ID:[id number] Payer ID:Not on file Group ID:Not on file Type:Medicare Address: [place] [phone] MEDICARE MEDICARE [facility] MEDICARE AAR MEDICARE Member Subscriber Plan / Payer (Ef fective for All Dates) Name:KebedehSant aden Member ID:[id number] Relation to Subscriber:Self Name:Shant Kebede Subscriber ID:[id number] Payer ID:Not on file Group ID:Not on file Type:Medicare Address: [address] MEDICARE Member Subscriber Plan / Payer (Ef fective for All Dates) Name:Kebede, Shant Member ID:[id number] Relation to Subscriber:Self Name:KebedeShant aden Subscriber ID:[id number] Payer ID:Not on file Group ID:Not on file Type:Medicare Address: [address] Member Subscriber Plan / Payer (Ef fective for All Dates) Name:Shant Kebede Member ID:Not on file Relation to Subscriber:Self Name:Shant Kebede Subscriber ID:Not on file Payer ID:Not on file Group ID:Not on file Type:Commercial Address: [place] [phone] Member Subscriber Plan / Payer (Ef fective for All Dates) Name:Shant Kebede Member ID:[id number] Relation to Subscriber:Self Name:Delio Shant Subscriber ID:[id number] Payer ID:Not on file Group ID:Not on file Type:Medicare Address: [address] AARP Member Subscriber Plan / Payer (Ef fective for All Dates) Name:Shant Kebede Member ID:Not on file Relation to Subscriber:Self Name:Shant Kebede Subscriber ID:Not on file Payer ID:Not on file Group ID:Not on file Type:Commercial Address: [place] [phone] Care Teams Edging Catcher Relationship Specialty Start Date End Date Jacinto Marion MD [address] [place] [address] PCP - General 10/19/22
--- OUTSIDE RECORDS SUMMARY | 2025-05-14 18:55 | XMS_ITS | Clinical Summary ---
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
--- OUTSIDE RECORDS SUMMARY | 2025-05-14 18:55 | XMS_ITS | Clinical Summary ---
Author Organization [facility] Address [address] [place] [address] Care Team Providers Care Solid Waste Collection Worker Name Role Phone Raciel Gorman MD Primary Care Provider [phone] Chencho Garcia MD Unavailable [phone] Shant Leon MD Unavailable Ubaldo Walters MD Unavailable [phone] Allergies No known active allergies Medications lisinopril 10 MG tablet Take 10 mg by mouth daily. 06/05/2020 Active ciprofloxacin 250 MG tablet Take 250 mg by mouth daily. 07/08/2020 Active hydroxychloroqu ine 200 MG tablet TK 2 T PO D 06/17/2020 Active metoprolol tartrate 50 MG tablet Take 50 mg by mouth every 12 (twelve) hours. 06/07/2020 Active COMBIGAN 0.2-0.5 % ophthalmic solution 07/25/2020 Active diclofenac sodium 1 % gel ELINA 2 GM TOPCALLY TO PAINFUL AREAS QID 06/22/2020 Active dorzolamide 2 % ophthalmic solution INSTILL 1 DROP IN LEFT EYE THREE TIMES DAILY 07/07/2020 Active travoprost, TRAVATAN Z, 0.004 % opthalamic solution INT 1 GTT IN OU QPM. 06/05/2020 Active testosterone 20.25 MG/ACT (1.62%) Gel ELINA 2 PUMPS EXT D UTD 01/07/2020 Active oxybutynin XL 10 MG 24 hr tablet Take 10 mg by mouth daily. Active aspirin EC 81 MG tablet Take 81 mg by mouth daily. Active Active Problems Problem Noted Date Diagnosed Date History of TIA (transient ischemic attack) 09/11 H/O atrial fibrillation without current medicati on 09/11/2020 Class 2 severe obesity due t o excess calories with serious comorbidity and body mass index (BMI) of 36.0 to 36.9 in adult 09/11/2020 Essential hypertension 07/28/2020 Overactive bladder 07/28/2020 Hypogonadism in male 07/28/2020 Primary osteoarthritis involving multiple joints 07/28/2020 Prediabetes 07/28/2020 Rheumatoid arthritis involving multiple sites Vitamin D deficiency 07/28/2020 Resolved Problems Problem Noted Date Diagnosed Date Resolved Date Paroxysmal atrial fibrillation 07/28/2020 09/11/2020 TIA (transient ischemic attack) 07/28/2020 09/11/2020 Overview (07/28/2020): Two previous - one occurred about 2 years ago, prior was about 4 years ago Immunizations Immunization Administration Dates Next Due Fluad influenza vaccine, Dejuan drivalent (aIIV4), Inactivated, adjuvanted, preservative free, 0.5 mL,IM use 08/02/2017 Fluzone High Dose - >Age 65 (Prefilled Syringe) 05/10/2020 Influenza (Generic) 04/30/2019 Influenza Adult (Generic) 05/07/2018,08/03/2013 Pneumococcal (Pneumovax 23) 07/30/2014, 0 Pneumococcal (Prevnar 13) 08/02/2017 Shingrix 05/07/2018 Tdap (Generic) 12/17/2019,11/22/2009 Zoster (Zostavax) 42977 Unt/0.65Ml 08/02/2017 Family History Medical History Relation Comments Psoriasis Daughter Heart Disease Father No Known Problems Maternal Grandfather No Known Problems Maternal Grandmother Hypertension Mother Stroke Mother No Known Problems Paternal Grandfather No Known Problems Paternal Grandmother gout Son Relation Status Comments Daughter Alive Father Maternal Grandfather Maternal Grandmother Mother Paternal Grandfather Paternal Grandmother Son Alive Social History Tobacco Use Types Packs/Day Years Used Date Smoking Tobacco: Former Cigarettes Q uit: 07/23/1999 Smokeless Tobacco: Never Tobacco Cessation:Counseling Given: No Alcohol Use Standard Drinks/Week Comments Not Currently 0 (1 standard drink = 0.6 oz pur e alcohol) PHQ-2 Answer Date Recorded PHQ-2 Score - If the patient scores above 3, please move on to questions 3-9 0 07/28/2020 Sex and Gender Information Value Date Recorded Sex Assigned at Not on file 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 Gender Identity Not on file Sexual Orientation Not on file Last Filed Vital Signs Vital Sign Reading Time Taken Comments Blood Pressure 102/70 07/28/2020 1:18 PM REVENUE CYCLE ADMINISTRATOR Pulse 60 07/28/2020 1:18 PM REVENUE CYCLE ADMINISTRATOR Temperature 36.6 C (97.9 F) 07/28/2020 1:18 PM REVENUE CYCLE ADMINISTRATOR Respiratory Rate 18 07/28/2020 1:18 PM REVENUE CYCLE ADMINISTRATOR Oxygen Saturation 95% 07/28/2020 1:18 PM REVENUE CYCLE ADMINISTRATOR Inhaled Oxygen Concentration - - Weight 112.5 kg (248 lb) 07/28/2020 1:18 PM REVENUE CYCLE ADMINISTRATOR Height 176.5 cm (5' 9.5) 07/28/2020 1:18 PM REVENUE CYCLE ADMINISTRATOR Body Mass Index 36.1 07/28/2020 1:18 PM REVENUE CYCLE ADMINISTRATOR Plan of Treatment Health Maintenance Due Date Last Done Comments Annual Medicare Wellness Visit 2009 Zoster Vaccines (3 of 3) 07/02/2018 05/07/2018, 07/23 RSV Immunization or 60+ Years (1 - 1-dose 75+ series) 12/30/2019 COVID-19 Vaccine ( - season) 2025 Influenza Adult (#1) 2025 05/10/2020, 04/30/2019, 05/07/2018, Additional history exists DTaP, Tdap and Td Vaccines (3 - Td or Tdap) 12/16/2029 12/17/2019, 11/22/2009 Pneumococcal Vaccine: 50+ Years Completed 08/02/2017, 07/30/2014, 12/23/2009 Hepatitis A Vaccines Aged Out No long er eligible based on patient's age to complete this topic Meningococcal B Vaccine Aged Out No l onger eligible based on patient's age to complete this topic Meningococcal Vaccine Aged Out No bakari bruno eligible based on patient's age to complete this topic RSV Immunizations Under 20 Months Aged Out No longer eligible based on patient's age to complete this topic Insurance MEDICARE Care Teams Solid Waste Collection Worker Relationship Specialty Start Date End Date Raciel Gorman MD PCP - General INTERNAL MEDICINE 07/28/20 Chencho Garcia MD Referring Physician OPHTHALMOLOGY 07/28/20 Shant Leon MD Referring Physician OPHTHALMOLOGY 07/28/20 Ubaldo Walters MD Consulting Physician INTERNAL MEDICINE 07/28/20
--- OUTSIDE RECORDS SUMMARY | 2025-05-14 18:55 | XMS_ITS | Clinical Summary ---
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
--- NOTE | 2025-05-14 19:20 | ECG_ITS ---
Test Date: 2025-05-14 19:20:25 Measurements Intervals [place] Rate: 135 P: 0 KS: 0 QRS: -9 QRSD: 146 T: -10 QT: 314 QTc: 472 Interpretive Statements ATRIAL FIBRILLATION WITH RAPID VENTRICULAR RESPONSE WITH VENTRICULAR PREMATURE COMPLEXES RIGHT BUNDLE BRANCH BLOCK INFERIOR INFARCT, AGE INDETERMINATE ABNORMAL ECG Compared to ECG 04/12/2024 20:47:12 SINUS RHYTHM NO LONGER PRESENT Electronically Signed On 05-15-2025 11:29:31 CDT by Francisco Pérez D.O.
--- NOTE | 2025-05-14 19:25 | ECG_ITS ---
Test Date: 2025-05-14 20:44:36 Measurements Intervals [place] Rate: 93 P: 0 HI: 0 QRS: 16 QRSD: 141 T: 30 QT: 360 QTc: 450 Interpretive Statements SINUS RHYTHM WITH ATRIAL AND VENTRICULAR PREMATURE COMPLEXES RIGHT BUNDLE BRANCH BLOCK BASELINE WANDER- I, II, III, AVR, AVL, AVF, V1-V6 ABNORMAL ECG Compared to ECG 04/12/2024 20:47:12 Ventricular premature complex(es) now present Electronically Signed On 05-14-2025 21:00:33 CDT by Francisco Pérez D.O.
--- NOTE | 2025-05-14 19:48 | ED.MALEGU ---
HPI - Male Genitourinary General Chief complaint: Urogenital-Male Stated complaint: not able to urinate Time Seen by Provider: 05/14/25 19:13 History of Present Illness HPI Narrative: 79-year-old male with a past medical history including CKD, hypertension, kidney stones, prostate cancer, paroxysmal AFib not on anticoagulation. Patient presents to the emergency department today with difficulty urinating. He had his De Leon catheter removed in the urologist office this morning around noon after was placed several days ago. He states that he was told to return to the office by 3:00 p.m. if he was not able to urinate but when he tried to call to make that appointment they were not answering the phone so he came to the emergency department. Patient has not had any urine output for the last 8 hours. Feels of lower abdominal and pelvic pain and pressure. Noted to be severely tachycardic in triage. Denies any fever, chills. No chest pain or difficulty breathing. No headache or vision changes. No nausea or vomiting. No traumatic injuries. States that he has a sensation and urge to urinate but not able to at this time. Related Data Home Medications ?Medication ?Instructions ?Recorded ?Confirmed ?Last Taken ?Type potassium citrate 15 mEq (1,620 15 meq PO BID 03/14/23 03/04/25 09/18/23 History mg) tablet,extended release brimonidine 0.2 %-timolol 0.5 % 1 drp EACH EYE Q12H 03/28/23 03/04/25 09/18/23 History eye drops mirabegron 25 mg tablet,extended 25 mg PO DAILY 07/30/23 03/04/25 09/18/23 History release 24 hr (Myrbetriq) tamsulosin 0.4 mg capsule 0.8 mg PO HS 04/13/24 03/04/25 Unknown History diclofenac sodium 1 % topical gel 2 g topical QID 08/20/24 03/04/25 Unknown History acetaminophen 500 mg capsule 1,000 mg PO BID PRN Pain (Scale 11/11/24 03/04/25 Unknown History Score 1-3) cephalexin 250 mg capsule 250 mg PO DAILY 11/11/24 03/04/25 Unknown History Allergies Allergy/AdvReac Type Severity Reaction Status Date / Time No Known Drug Allergies Allergy Mild unknown Verified 03/04/25 11:35 Review of Systems Review of Systems: As reviewed above in HPI All systems reviewed & are unremarkable except as noted in HPI and below [facility] Past Medical History Medical History Recurrent UTI 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 Transient ischemic attack (~2014) Paroxysmal atrial fibrillation (~10/2019) associated with sepsis Retinal vein occlusion of left eye Pre-diabetes Hemoglobin A1c was 6.3% in April 2019. Overactive bladder Essential hypertension Khoury palsy (~2018) Vitamin D deficiency Rheumatoid arthritis with rheumatoid factor of multiple sites without organ or systems involvement Glaucoma Osteoarthritis Hypogonadism in male Uses testosterone gel. 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 History of lithotripsy (~08/2022) Cystoscopy, left retrograde pyelography, left ureteroscopy with laser lithotripsy and stone extraction, left ureteral stent replacement History of lithotripsy (~02/2023) Cystoscopy, left ureteroscopy with laser lithotripsy, stone extraction stent placement History of ureter stent (~03/2023) Cystoscopy, left ureteroscopy with stone extraction and left ureteral stent placement History of glaucoma tube shunt procedure (~06/2023) Left H/O colonoscopy with polypectomy History of ureter stent (~10/2022) cystoscopy, left retrograde pyelogram and placement of left 6fr variable length stent Hx of lithotripsy (~04/2022) Left ESWL History of cystoscopy (~05/2022) cystoscopy, left retrograde pyelography and left ureteral stent placement History of left cataract surgery (~2009) History of appendectomy (~1958) Family History Family History Father Diabetes mellitus Acute myocardial infarction Heart disease Hypertension Mother Cerebrovascular accident Social History Social History Social History: The patient lives in [place] with his . They have 3 sons and 1 daughter. He smoked up to 3 packs of cigarettes per day and quit 1995. No alcohol or drug abuse. 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 [employer] Code status: Full code Surrogate decision maker: Dariusz () Smoking packs per day: 3 Smoking cigarettes per day: 60.0 Years smoked: 34 Smoking pack-years: 102.00 Smoking status: Former smoker Second hand tobacco smoke exposure: No Additional smoking assessment comments: pt states he started smoking at age 20 Alcohol intake: never Substance use: never Substance use type: does not use Current Housing: Decline to Answer Concerned About Future Housing: Decline to Answer Difficulty Paying Gas/Electric Bills: Decline to Answer Difficulty Paying for Meds: Decline to Answer Currently Unemployed: Decline to Answer Education: Decline to Answer Difficulty w/ Childcare or Family Care: Decline to Answer Living arrangements: with family Additional living arrangements comments: - [facility] Gender identity (if verbalized by the patient): Male Sexual Orientation (if Verbalized by the Patient): Straight or Heterosexual Spiritual care concerns: No Agree to blood products: Yes Exam Narrative: GENERAL: [Well-appearing, well-nourished, and in no acute distress.] HEAD: [Normocephalic, atraumatic.] EYES: [PERRLA and EOMI.] ENT: Nares clear, no rhinorrhea or epistaxis. Mucous membranes moist. NECK: Supple. CHEST: [Clear to auscultation. No respiratory distress.] HEART: Tachycardic rate, frequent ectopy noted. No murmur heard. [Normal peripheral pulses.] ABDOMEN: [Soft, nondistended], [nontender], [No rigidity or guarding] : Beefy red rash in the intertriginous areas of the scrotum and inguinal canal consistent with yeast infection with creamy white discharge. Some similar appearance at the urethral meatus. No purulence. No foul odor. No crepitus or discoloration of the skin otherwise. EXTREMITIES: Normal range of motion. [No edema.] SKIN: Warm, dry, no rash. NEURO: [No focal deficits]. Alert and oriented [x3.] PSYCH: [Normal mood and affect.] Course Vital Signs Vital signs: Vital Signs Pulse Rate 140 H 05/14/25 19:11 Respiratory Rate 19 05/14/25 19:11 Pulse Oximetry 91 05/14/25 19:11 Temperature 36.8 C 05/14/25 19:12 Pulse Rate 102 H 05/14/25 22:33 Respiratory Rate 26 H 05/14/25 22:33 Blood Pressure 143/89 H 05/14/25 22:01 Pulse Oximetry 95 05/14/25 22:33 Oxygen Delivery Room Air 05/14/25 19:12 MDM - Male Genitourinary MDM Narrative Medical decision making narrative: 79-year-old male with a past medical history including CKD, hypertension, kidney stones, prostate cancer, paroxysmal AFib not on anticoagulation. Patient presents to the emergency department today with difficulty urinating. He had his De Leon catheter removed in the urologist office this morning around noon after was placed several days ago. He states that he was told to return to the office by 3:00 p.m. if he was not able to urinate but when he tried to call to make that appointment they were not answering the phone so he came to the emergency department. Patient has not had any urine output for the last 8 hours. Feels of lower abdominal and pelvic pain and pressure. Noted to be severely tachycardic in triage. Denies any fever, chills. No chest pain or difficulty breathing. No headache or vision changes. No nausea or vomiting. No traumatic injuries. States that he has a sensation and urge to urinate but not able to at this time. Patient's heart rate is elevated with frequent ectopy on the monitor. Hemodynamically stable. No complaints of chest pain shortness a breath. Could be component of urinary tension and pain causing his heart rate to spike as he has a history of frequent PACs and PVCs that he takes metoprolol b.i.d. 4. Did not take his nightly dose. Laboratory studies ordered, troponin x-ray EKG, basic laboratory studies magnesium panel ordered. De Leon catheter inserted bedside with immediate return of 1200 cc of clear yellow urine. Patient had immediate relief of symptoms and heart rate did come down into the 90s to 100 range after a 1 time dose of 5 mg IV Lopressor. Patient placed on pvc monitor while workup underway. No recurrence of tachycardia. EKG shows no interval change from baseline with frequent PACs and PVCs with baseline sinus rhythm. He has already been evaluated this previously and had a event monitor recording the same events. Recorded and reviewed patient's previous EKGs with no significant interval change. Patient given nighttime dose of his metoprolol that he has missed and expressing desire for discharge. Assuming unremarkable laboratory studies in troponin without any recurrence of his tachycardia I believe he can be safely discharged with De Leon catheter and Urology follow-up. Troponin negative, laboratory studies unremarkable and at baseline. Patient's yeast infection be treated with nystatin and sent home with a prescription. Patient's vital signs all reassuring and normalized after treatment here in the emergency department. 97% on room air. Heart rate 93-101 with frequent PACs/PVCs. Blood pressure stable. Remains asymptomatic at this time. No chest pain, shortness a breath or feeling palpitations. Patient expressing to go home and given his unremarkable workup can be safely discharged. Already has follow-up with Urology tomorrow morning and given a cardiology referral in addition to nystatin prescription. Patient given strict return precautions and safely DC that this time. Medical Records Attestation: I reviewed the patient's medical records. Lab Data Attestation: I reviewed the patient's lab results. 05/14/25 20:26 05/14/25 20:26 Labs: Lab Results 05/14/25 Range/Units 20:26 WBC 9.5 (4.5-10.0) K/mm3 RBC 3.96 L (4.6-6.20) M/mm3 Hgb 13.4 L (14.0-18.0) g/dL Hct 40.8 L (42.0-52.0) % MCV 103.0 H (80-100) fl MCH 33.8 (26-34) pg MCHC 32.8 (32-36) g/dl RDW 13.3 (11.5-14.5) % Plt Count 228 (150-375) k/mm3 MPV 8.4 (7.4-10.4) fl Immature Gran % (Auto) 0.4 (0-0.5) % Neut % (Auto) 75.3 H (45.5-73.1) % Lymph % (Auto) 7.7 L (18.3-44.2) % Mccone % (Auto) 12.1 H (2.6-8.5) % Eos % (Auto) 3.7 (0-4.4) % Baso % (Auto) 0.8 (0.2-1.2) % Lymph # (Auto) 0.73 L (0.9-3.2) K/mm3 Mccone # (Auto) 1.2 H (0.1-0.6) K/mm3 Eos # (Auto) 0.4 H (0-0.3) K/mm3 Baso # (Auto) 0.1 (0.0-0.1) K/mm3 Abs Immat Gran (auto) 0.04 H (0.00-0.031) K/mm3 Absolute Neuts (auto) 7.2 H (1.3-6.7) K/mm3 Absolute Nucleated RBC 0.000 (0.0-0.012) K/mm3 Nucleated RBC % 0.0 (0.0-0.2) % PT 13.6 (11.1-14.7) Seconds INR 1.0 APTT 25.9 (22.3-36.8) Seconds Sodium 137 (137-145) mmol/L Potassium 4.6 (3.4-5.0) mmol/L Chloride 101 (98-107) mmol/L Carbon Dioxide 28 (22-30) mmol/L Anion Gap 8 (4-12) mmol/L BUN 28 H (9-20) mg/dL Creatinine 1.45 H (0.7-1.3) mg/dL Estim Creat Clear Calc 46 ml/min Estimated GFR 47 L (59 - ) Glucose 148 H (65-110) mg/dL Calcium 9.2 (8.4-10.2) mg/dL Magnesium 1.9 (1.6-2.3) mg/dL Total Bilirubin 0.5 (0.2-1.3) mg/dL AST 31 (17-59) U/L ALT 27 (6-50) U/L Alkaline Phosphatase 75 (38-126) U/L Troponin I 0.013 (0.000-0.034) ng/mL Total Protein 8.0 (6.3-8.2) g/dL Albumin 4.2 (3.5-5.1) g/dL Lipase 42 (23-300) U/L Urine Color Yellow (Yellow) Urine Appearance Clear (Clear) Urine pH 5.5 (5.0-9.0) Ur Specific [place] 1.007 (1.001-1.035) Urine Protein 1+ H (Negative) mg/dL Urine Glucose (UA) Negative (Negative) mg/dL Urine Ketones Negative (Negative) mg/dL Ur Blood (Man) 2+ H (Negative) Urine Nitrate Negative (Negative) Urine Bilirubin Negative (Negative) Urine Urobilinogen 0.2 (<2.0) mg/dL Leukocyte Esterase Rfl Trace H (Negative) ARASH/UL Urine RBC 3-5 H (0-2) /hpf Urine WBC 0-5 (0-3) /hpf Ur Squamous Epith Cells None seen (Few) /hpf Urine Bacteria None seen /hpf Urine Casts 0-2 Imaging Data Attestation: I personally reviewed and interpreted this imaging study as follows: My impression: Impressions Chest X-Ray 05/14/25 19:58 IMPRESSION: No acute pulmonary findings. Discharge Plan Discharge Clinical Impression: Acute on chronic urinary retention, Atrial premature complexes, Asymptomatic PVCs, Skin yeast infection Patient Disposition: Home Condition: Stable Instructions: Antibiotic Form, Urinary Retention in Men (ED), Skin Yeast Infection (ED) Additional Instructions: You had acute urinary tension here after the De Leon catheter removed in office. We have replaced it and drain 1200 cc of fluid. No signs of infection in the urine. Laboratory studies are all reassuring and normal at the baseline. He do have evidence of a skin irritation and infection likely yeast based on the appearance which we will treat with topical cream applied 4 times daily. Your EKG seems about baseline with frequent ectopy and have provided a cardiology referral for outpatient evaluation but if you start developing new symptoms such as chest pain, difficulty breathing, losing consciousness, rapid heart rate sensations or any other issues please return to the ER before then. Follow-up with Urology tomorrow. Patient Language: Malaysian Prescriptions: New nystatin 100,000 unit/gram cream 1 applic topical QID Qty: 30 0RF No Action Myrbetriq 25 mg tablet extended release 24 hr 25 mg PO DAILY hydroxychloroquine 200 mg tablet 400 mg PO DAILY Qty: 180 1RF duloxetine 30 mg capsule,delayed release(DR/EC) 30 mg PO BID Qty: 60 4RF diclofenac sodium 1 % gel 2 g topical QID Rx Instructions: apply to single elbow, wrist or hand; for hand includes palm/fingers/back of hand cephalexin 250 mg capsule 250 mg PO DAILY potassium citrate 15 mEq tablet extended release 15 meq PO BID brimonidine-timolol 0.2-0.5 % drops 1 drp EACH EYE Q12H acetaminophen 500 mg capsule 1,000 mg PO BID PRN (Reason: Pain (Scale Score 1-3)) tamsulosin 0.4 mg capsule 0.8 mg PO HS metoprolol tartrate 50 mg tablet 50 mg PO BID Qty: 180 1RF lisinopril 10 mg tablet 10 mg PO DAILY Qty: 90 1RF Follow-up/Referrals: Raciel Elliott MD [Physician, Cardiology] - 1 Week Referral Note: Frequent premature complexes on the EKG with tachycardia Bubba Cho MD [Primary Care Provider, Family Practice] Pablo Walker MD [Physician, Urology] - 1 Day Referral Note: Urinary retention Time of Disposition: 22:32
[2025-05-14 20:31] LABS: Hematocrit 40.8 % (42.0-52.0); Hemoglobin 13.4 g/dL (14.0-18.0); Immature Granulocyte Percent A 0.4 % (0-0.5); Lymphocytes Absolute Auto 0.73 K/mm3 (0.9-3.2); Mean Corpuscular HGB Conc 32.8 g/dl (32-36); Mean Corpuscular Hemoglobin 33.8 pg (26-34); Mean Corpuscular Volume 103.0 fl (80-100); Nucleated Red Blood Cells Absolute Auto 0.000 K/mm3 (0.0-0.012); Nucleated Red Blood Cells Perc 0.0 % (0.0-0.2); Platelet Count Result 228 k/mm3 (150-375); Red Blood Count 3.96 M/mm3 (4.6-6.20); White Blood Count 9.5 K/mm3 (4.5-10.0)
[2025-05-14] MEDS: METOPROLOL TARTRATE INJ 5 MG/5 ML VIAL IV PUSH (20:32)
[2025-05-14] MEDS: ASPIRIN 81 MG CHEWABLE TABLET 324 MG PO (20:32)
[2025-05-14 20:38] LABS: Add Urine Microscopic? YES; Appearance Urine Clear (Clear); Glucose Urine UA Negative (Negative); Leukocyte Esterase Ur Trace LEU/UL (Negative); Nitrate Urine Negative (Negative); Non Pathogenic Casts 0-2; Specific Grav Ur 1.007 (1.001-1.035)
[2025-05-14 20:49] LABS: Alanine Aminotransferase 27 U/L (6-50); Albumin Level 4.2 g/dL (3.5-5.1); Alkaline Phosphatase 75 U/L (38-126); Anion Gap 8 mmol/L (4-12); Aspartate Amino Transferase 31 U/L (17-59); Bilirubin,Total 0.5 mg/dL (0.2-1.3); Blood Urea Nitrogen 28 mg/dL (9-20); Calcium 9.2 mg/dL (8.4-10.2); Carbon Dioxide 28 mmol/L (22-30); Chloride 101 mmol/L (98-107); Estimated CRCL calculation 46 ml/min; Estimated Glomerular Filt Rate 47; Glucose 148 mg/dL (65-110); Lipase 42 U/L (23-300); Potassium 4.6 mmol/L (3.4-5.0); Sodium 137 mmol/L (137-145); Total Protein 8.0 g/dL (6.3-8.2)
[2025-05-14 20:50] LABS: INR 1.0; Prothrombin Time 13.6 Seconds (11.1-14.7)
[2025-05-14 20:51] LABS: Partial Thromboplastin Time 25.9 Seconds (22.3-36.8)
[2025-05-14] MEDS: METOPROLOL TARTRATE 50 MG TAB PO (21:50)
[2025-05-14 22:06] LABS: Magnesium 1.9 mg/dL (1.6-2.3)
[2025-05-14 22:18] LABS: Troponin I 0.013 ng/mL (0.000-0.034)
== END 2025-05-14 22:57 | disposition home or self-care (01) ==
PROVIDERS: Emergency Provider Student in an Organized Health Care Education/Training Program; PCP Family Medicine
DX: R33.9 Retention of urine, unspecified (principal); I49.3 Ventricular premature depolarization; I49.1 Atrial premature depolarization; B37.2 Candidiasis of skin and nail; I48.0 Paroxysmal atrial fibrillation; I12.9 Hypertensive chronic kidney disease with stage 1 through stage 4 chronic kidney disease, or unspecified chronic kidney disease; N18.31 Chronic kidney disease, stage 3a; H40.9 Unspecified glaucoma; I87.2 Venous insufficiency (chronic) (peripheral); N32.81 Overactive bladder; E55.9 Vitamin D deficiency, unspecified; M10.9 Gout, unspecified; M05.79 Rheumatoid arthritis with rheumatoid factor of multiple sites without organ or systems involvement; M19.90 Unspecified osteoarthritis, unspecified site; Z86.711 Personal history of pulmonary embolism; Z86.16 Personal history of COVID-19; Z87.440 Personal history of urinary (tract) infections; Z86.73 Personal history of transient ischemic attack (TIA), and cerebral infarction without residual deficits; Z87.442 Personal history of urinary calculi; Z85.46 Personal history of malignant neoplasm of prostate; Z85.828 Personal history of other malignant neoplasm of skin; Z87.891 Personal history of nicotine dependence; Z98.42 Cataract extraction status, left eye; Z79.899 Other long term (current) drug therapy
CPT/HCPCS: 36415; 51702; 71045; 80053; 81001; 83690; 83735; 84484; 85025; 85610; 85730; 93005; 96374; 99284; A9270; J0616

== ENCOUNTER 2025-05-25 14:01 | Inpatient (IN) | payer MEDICARE, SELFPAY ==
--- NOTE | ~2025-05-25 | CT_ITS ---
CT HEAD NON-CONTRAST Clinical History: AMS Comparison: CT brain 04/14/2024 Technique: Unenhanced axial images skull base to vertex Coronal, sagittal reformats CT images acquired with automatic exposure control for dose reduction DLP: 681 mGy-cm Findings: Age-related atrophy. Chronic white matter microvascular ischemic changes. Sulci, ventricles: Unremarkable. No intracerebral hemorrhage. No evidence acute territorial infarct. No mass effect, midline shift. Bony calvarium intact. Visualized paranasal sinuses: Clear. Mastoid air cells: Clear. IMPRESSION: 1. No acute intracranial findings. Reviewed, dictated and finalized at location R. LLIGENCE SENIOR SERGEANT
--- NOTE | ~2025-05-25 | XR_ITS ---
EXAMINATION: XR chest 1V portable COMPARISON: No comparisons available. HISTORY: AMS FINDINGS: Mild pulmonary venous congestion. No pneumothorax. Mild cardiomegaly. Mediastinal and hilar contours are within normal limits. Bony thorax no acute abnormality. Miscellaneous: None Impression: Mild CHF Reviewed, dictated and finalized at location P. ANICAL ENGINEERING LECTURER Impression: Mild CHF
[2025-05-25 13:59] VITALS: BP 125/65; PULSE 80; RESP 22; TEMP 36.9; O2SAT 96
[2025-05-25 14:07] VITALS: O2SAT 97
--- NOTE | 2025-05-25 14:10 | ECG_ITS ---
Test Date: 2025-05-25 14:15:52 Measurements Intervals [place] Rate: 85 P: -48 UT: 188 QRS: -1 QRSD: 149 T: -12 QT: 409 QTc: 487 Interpretive Statements sinus RHYTHM WITH OCCASIONAL VENTRICULAR PREMATURE COMPLEXES WITH OCCASIONAL SUPRAVENTRICULAR PREMATURE COMPLEXES RIGHT BUNDLE BRANCH BLOCK [120+ ms QRS DURATION, UPRIGHT V1, 40+ ms S IN I/aVL/V4/V5/V6] Electronically Signed On 05-25-2025 18:43:44 [employer] by Pau Stone M.D.
--- NOTE | 2025-05-25 14:15 | ED.AMS ---
HPI - Altered Mental Status General Chief Complaint: Altered Mental Status Stated Complaint: AMS Time Seen by Provider: 05/25/25 14:10 Source: patient and EMS Mode of arrival: EMS Limitations: altered mental status History of Present Illness HPI narrative: This is an 79-year-old male with history CKD, paroxysmal AFib, hypertension prostate cancer, prior PEs who presents to the ED from half-way for altered mental status. Per EMS report, patient is being treated for UTI but he has had increasing confusion this morning. He has a De Leon catheter in place that apparently has not been changed. The patient is unsure why he is here at this time but knows that he has had some burning with his De Leon. History otherwise limited at this time due to the patient's confusion. Related Data Home Medications ?Medication ?Instructions ?Recorded ?Confirmed ?Last Taken ?Type potassium citrate 15 mEq (1,620 15 meq PO BID 03/14/23 05/25/25 09/18/23 History mg) tablet,extended release brimonidine 0.2 %-timolol 0.5 % 1 drp EACH EYE Q12H 03/28/23 05/25/25 09/18/23 History eye drops tamsulosin 0.4 mg capsule 0.8 mg PO HS 04/13/24 05/25/25 Unknown History acetaminophen 500 mg capsule 1,000 mg PO BID PRN Pain (Scale 11/11/24 05/25/25 Unknown History Score 1-3) cephalexin 250 mg capsule 250 mg PO DAILY 11/11/24 05/25/25 Unknown History Allergies Allergy/AdvReac Type Severity Reaction Status Date / Time No Known Drug Allergies Allergy Mild unknown Verified 05/25/25 14:08 Review of Systems Review of Systems: ROS unobtainable: Yes unobtainable due to mental status PMFSH Past Medical History Medical History Recurrent UTI 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 Transient ischemic attack (~2014) Paroxysmal atrial fibrillation (~10/2019) associated with sepsis Retinal vein occlusion of left eye Pre-diabetes Hemoglobin A1c was 6.3% in April 2019. Overactive bladder Essential hypertension Khoury palsy (~2018) Vitamin D deficiency Rheumatoid arthritis with rheumatoid factor of multiple sites without organ or systems involvement Glaucoma Osteoarthritis Hypogonadism in male Uses testosterone gel. 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 History of lithotripsy (~08/2022) Cystoscopy, left retrograde pyelography, left ureteroscopy with laser lithotripsy and stone extraction, left ureteral stent replacement History of lithotripsy (~02/2023) Cystoscopy, left ureteroscopy with laser lithotripsy, stone extraction stent placement History of ureter stent (~03/2023) Cystoscopy, left ureteroscopy with stone extraction and left ureteral stent placement History of glaucoma tube shunt procedure (~06/2023) Left H/O colonoscopy with polypectomy History of ureter stent (~10/2022) cystoscopy, left retrograde pyelogram and placement of left 6fr variable length stent Hx of lithotripsy (~04/2022) Left ESWL History of cystoscopy (~05/2022) cystoscopy, left retrograde pyelography and left ureteral stent placement History of left cataract surgery (~2009) History of appendectomy (~1957) Family History Family History Father Diabetes mellitus Acute myocardial infarction Heart disease Hypertension Mother Cerebrovascular accident Social History Social History Social History: The patient lives in [place] with his . They have 3 sons and 1 daughter. He smoked up to 3 packs of cigarettes per day and quit 1995. No alcohol or drug abuse. 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 [employer] Code status: Full code Surrogate decision maker: Vandana () Smoking packs per day: 3 Smoking cigarettes per day: 60.0 Years smoked: 34 Smoking pack-years: 102.00 Smoking status: Former smoker Second hand tobacco smoke exposure: No Additional smoking assessment comments: pt states he started smoking at age 20 Alcohol intake: never Substance use: never Substance use type: does not use Current Housing: Decline to Answer Concerned About Future Housing: Decline to Answer Difficulty Paying Gas/Electric Bills: Decline to Answer Difficulty Paying for Meds: Decline to Answer Currently Unemployed: Decline to Answer Education: Decline to Answer Difficulty w/ Childcare or Family Care: Decline to Answer Living arrangements: with family Additional living arrangements comments: - VANDANA Gender identity (if verbalized by the patient): Male Sexual Orientation (if Verbalized by the Patient): Straight or Heterosexual Spiritual care concerns: No Agree to blood products: Yes Exam Narrative: APPEARANCE: No acute distress, nontoxic, resting in bed EYES: EOMI HEENT: Normocephalic, atraumatic, OMM RESPIRATORY: No respiratory distress Clear to auscultation bilaterally with no rhonchi wheezing or rales. CARDIOVASCULAR: Regular rate and rhythm without murmurs rubs or gallops. ABDOMINAL: Soft, nontender, nondistended, no rebound or guarding. De Leon catheter in place. MUSCULOSKELETAl: Moves all extremities. No clubbing, cyanosis or edema. NEURO: Awake and alert and oriented x2. Following commands, speech normal, no focal deficits SKIN:: Warm, dry. No rashes lesions or abrasions PSYCHIATRIC: Normal affect/mood, Course Vital Signs Vital signs: Vital Signs Temperature 98.4 F 05/25/25 13:59 Pulse Rate 80 05/25/25 13:59 Respiratory Rate 22 H 05/25/25 13:59 Blood Pressure 125/65 05/25/25 13:59 Pulse Oximetry 96 05/25/25 13:59 Oxygen Delivery Room Air 05/25/25 13:59 Temperature 98.4 F 05/25/25 13:59 Pulse Rate 73 05/25/25 15:14 Respiratory Rate 20 05/25/25 15:14 Blood Pressure 113/68 05/25/25 15:14 Pulse Oximetry 95 05/25/25 15:14 Oxygen Delivery Room Air 05/25/25 14:07 MDM - Altered Mental Status MDM Narrative Medical decision making narrative: 79-year-old male Presenting for altered mental status and dysuria. On initial evaluation patient was in no acute distress afebrile, hemodynamic stable. Differentials include but are not limited to: CVA, TIA, ICH, meningitis, UTI, cancer, drug intoxication, hypoglycemia, electrolyte abnormality Notable exam findings: De Leon catheter in place with some irritation noted at the urethral meatus. Mild suprapubic tenderness to palpation. AAO x2. Notable lab findings: CBC and CMP without significant abnormalities. Creatinine is slightly elevated but this seems to be about his baseline. Lactic acid elevated at 2.3 CRP elevated to 1.3. UA showed significant pyuria and hematuria without bacteriuria. Notably imaging findings: Chest x-ray showed mild pulmonary vascular congestion UA suspicious for a UTI despite no bacteria especially given the clinical context. Patient was started on Rocephin, most recent positive UA was in 2023 and was pansensitive Klebsiella pneumoniae. Patient will require admission for acute metabolic encephalopathy due to a UTI. Case discussed with hospitalist who will admit the patient. Medical Records Attestation: I reviewed the patient's medical records. Lab Data Attestation: I reviewed the patient's lab results. 05/25/25 14:14 05/25/25 14:14 Labs: Lab Results 05/25/25 05/25/25 05/25/25 Range/Units 14:08 14:14 14:35 WBC 7.5 (4.5-10.0) K/mm3 RBC 4.00 L (4.6-6.20) M/mm3 Hgb 13.4 L (14.0-18.0) g/dL Hct 40.7 L (42.0-52.0) % MCV 101.8 H (80-100) fl MCH 33.5 (26-34) pg MCHC 32.9 (32-36) g/dl RDW 13.1 (11.5-14.5) % Plt Count 277 (150-375) k/mm3 MPV 8.4 (7.4-10.4) fl Immature Gran % (Auto) 0.5 (0-0.5) % Neut % (Auto) 77.3 H (45.5-73.1) % Lymph % (Auto) 9.0 L (18.3-44.2) % Hancock % (Auto) 7.6 (2.6-8.5) % Eos % (Auto) 4.8 H (0-4.4) % Baso % (Auto) 0.8 (0.2-1.2) % Lymph # (Auto) 0.67 L (0.9-3.2) K/mm3 Hancock # (Auto) 0.6 (0.1-0.6) K/mm3 Eos # (Auto) 0.4 H (0-0.3) K/mm3 Baso # (Auto) 0.1 (0.0-0.1) K/mm3 Abs Immat Gran (auto) 0.04 H (0.00-0.031) K/mm3 Absolute Neuts (auto) 5.8 (1.3-6.7) K/mm3 Absolute Nucleated RBC 0.000 (0.0-0.012) K/mm3 Nucleated RBC % 0.0 (0.0-0.2) % PT 14.0 (11.1-14.7) Seconds INR 1.1 APTT 25.5 (22.3-36.8) Seconds Sodium 136 L (137-145) mmol/L Potassium 4.7 (3.4-5.0) mmol/L Chloride 101 (98-107) mmol/L Carbon Dioxide 26 (22-30) mmol/L Anion Gap 9 (4-12) mmol/L BUN 26 H (9-20) mg/dL Creatinine 1.53 H (0.7-1.3) mg/dL Estim Creat Clear Calc 44 ml/min Estimated GFR 44 L (59 - ) Glucose 170 H (65-110) mg/dL POC Capillary Glucose 179 H (65-105) mg/dl Lactic Acid 2.3 H (0.7-2.0) mmol/L Calcium 8.9 (8.4-10.2) mg/dL Total Bilirubin 0.6 (0.2-1.3) mg/dL AST 33 (17-59) U/L ALT 28 (6-50) U/L Alkaline Phosphatase 63 (38-126) U/L C-Reactive Protein 1.3 H (<1.0) mg/dL Total Protein 8.1 (6.3-8.2) g/dL Albumin 4.3 (3.5-5.1) g/dL Urine Color (Yellow) Urine Appearance (Clear) Urine pH (5.0-9.0) Ur Specific Nesmith (1.001-1.035) Urine Protein (Negative) mg/dL Urine Glucose (UA) (Negative) mg/dL Urine Ketones (Negative) mg/dL Ur Blood (Man) (Negative) Urine Nitrate (Negative) Urine Bilirubin (Negative) Urine Urobilinogen (<2.0) mg/dL Add Ur Microanalysis Leukocyte Esterase Rfl (Negative) ARASH/UL Urine RBC (0-2) /hpf Urine WBC (0-3) /hpf Ur Squamous Epith Cells (Few) /hpf Urine Bacteria /hpf Urine Casts 05/25/25 Range/Units 14:49 WBC (4.5-10.0) K/mm3 RBC (4.6-6.20) M/mm3 Hgb (14.0-18.0) g/dL Hct (42.0-52.0) % MCV (80-100) fl MCH (26-34) pg MCHC (32-36) g/dl RDW (11.5-14.5) % Plt Count (150-375) k/mm3 MPV (7.4-10.4) fl Immature Gran % (Auto) (0-0.5) % Neut % (Auto) (45.5-73.1) % Lymph % (Auto) (18.3-44.2) % Hancock % (Auto) (2.6-8.5) % Eos % (Auto) (0-4.4) % Baso % (Auto) (0.2-1.2) % Lymph # (Auto) (0.9-3.2) K/mm3 Hancock # (Auto) (0.1-0.6) K/mm3 Eos # (Auto) (0-0.3) K/mm3 Baso # (Auto) (0.0-0.1) K/mm3 Abs Immat Gran (auto) (0.00-0.031) K/mm3 Absolute Neuts (auto) (1.3-6.7) K/mm3 Absolute Nucleated RBC (0.0-0.012) K/mm3 Nucleated RBC % (0.0-0.2) % PT (11.1-14.7) Seconds INR APTT (22.3-36.8) Seconds Sodium (137-145) mmol/L Potassium (3.4-5.0) mmol/L Chloride (98-107) mmol/L Carbon Dioxide (22-30) mmol/L Anion Gap (4-12) mmol/L BUN (9-20) mg/dL Creatinine (0.7-1.3) mg/dL Estim Creat Clear Calc ml/min Estimated GFR (59 - ) Glucose (65-110) mg/dL POC Capillary Glucose (65-105) mg/dl Lactic Acid (0.7-2.0) mmol/L Calcium (8.4-10.2) mg/dL Total Bilirubin (0.2-1.3) mg/dL AST (17-59) U/L ALT (6-50) U/L Alkaline Phosphatase (38-126) U/L C-Reactive Protein (<1.0) mg/dL Total Protein (6.3-8.2) g/dL Albumin (3.5-5.1) g/dL Urine Color Yellow (Yellow) Urine Appearance Cloudy H (Clear) Urine pH 5.5 (5.0-9.0) Ur Specific Nesmith 1.018 (1.001-1.035) Urine Protein 2+ H (Negative) mg/dL Urine Glucose (UA) Trace H (Negative) mg/dL Urine Ketones Negative (Negative) mg/dL Ur Blood (Man) 2+ H (Negative) Urine Nitrate Negative (Negative) Urine Bilirubin Negative (Negative) Urine Urobilinogen 0.2 (<2.0) mg/dL Add Ur Microanalysis Reviewed Leukocyte Esterase Rfl 2+ H (Negative) ARASH/UL Urine RBC >100 H (0-2) /hpf Urine WBC 51-100 H (0-3) /hpf Ur Squamous Epith Cells Occasional (Few) /hpf Urine Bacteria None seen /hpf Urine Casts 3-5 Imaging Data Attestation: I personally reviewed and interpreted this imaging study as follows: My impression: Chest x-ray: Normal cardiac silhouette, no consolidations, no pleural effusions, mild pulmonary vascular congestion Radiologist's impression: Impressions Chest X-Ray 05/25/25 14:41 Impression: Mild CHF ECG Data EKG #1: Attestation: I personally reviewed and interpreted this ECG as follows: ECG completion date: 05/25/25 ECG completion time: 14:15 Interpretation: Ectopic atrial rhythm rate 85, right bundle-branch block, no acute ST or T-wave changes Discharge Plan Discharge Clinical Impression: Acute metabolic encephalopathy, Acute UTI, Acute on chronic urinary retention Patient Disposition: Still a Patient Condition: Stable
[2025-05-25 14:25] LABS: Hematocrit 40.7 % (42.0-52.0); Hemoglobin 13.4 g/dL (14.0-18.0); Immature Granulocyte Percent A 0.5 % (0-0.5); Lymphocytes Absolute Auto 0.67 K/mm3 (0.9-3.2); Mean Corpuscular HGB Conc 32.9 g/dl (32-36); Mean Corpuscular Hemoglobin 33.5 pg (26-34); Mean Corpuscular Volume 101.8 fl (80-100); Nucleated Red Blood Cells Absolute Auto 0.000 K/mm3 (0.0-0.012); Nucleated Red Blood Cells Perc 0.0 % (0.0-0.2); Platelet Count Result 277 k/mm3 (150-375); Red Blood Count 4.00 M/mm3 (4.6-6.20); White Blood Count 7.5 K/mm3 (4.5-10.0)
[2025-05-25 14:37] LABS: INR 1.1; Partial Thromboplastin Time 25.5 Seconds (22.3-36.8); Prothrombin Time 14.0 Seconds (11.1-14.7)
--- NOTE | 2025-05-25 14:37 | PC.NURSE ---
Patient's fleming catheter was not attached to the stat lock and was hanging and causing pain to patient. Patient had purulent drainage coming from urethral opening. Patient states catheter has not been changed since being placed. Patient unsure of when catheter was initially inserted.
[2025-05-25 14:51] LABS: Alanine Aminotransferase 28 U/L (6-50); Albumin Level 4.3 g/dL (3.5-5.1); Alkaline Phosphatase 63 U/L (38-126); Anion Gap 9 mmol/L (4-12); Aspartate Amino Transferase 33 U/L (17-59); Bilirubin,Total 0.6 mg/dL (0.2-1.3); Blood Urea Nitrogen 26 mg/dL (9-20); CRP 1.3 mg/dL (<1.0); Calcium 8.9 mg/dL (8.4-10.2); Carbon Dioxide 26 mmol/L (22-30); Chloride 101 mmol/L (98-107); Estimated CRCL calculation 44 ml/min; Estimated Glomerular Filt Rate 44; Glucose 170 mg/dL (65-110); Potassium 4.7 mmol/L (3.4-5.0); Sodium 136 mmol/L (137-145); Total Protein 8.1 g/dL (6.3-8.2)
[2025-05-25 15:11] LABS: Add Urine Microscopic? YES; Appearance Urine Cloudy (Clear); Glucose Urine UA Trace mg/dL (Negative); Leukocyte Esterase Ur 2+ LEU/UL (Negative); Need Manual Microscopic Reviewed; Nitrate Urine Negative (Negative); Specific Grav Ur 1.018 (1.001-1.035)
[2025-05-25 15:14] VITALS: BP 113/68; PULSE 73; RESP 20; O2SAT 95
[2025-05-25] MEDS: SODIUM CHLORIDE 0.9% IV 1,000 ML 999 ML IV CONT (15:14)
[2025-05-25] MEDS: cefTRIAXone 2 GM in SODIUM CHLORIDE 0.9% IV 100 ML 200 ML IVPB (15:28)
[2025-05-25 16:47] VITALS: BMI 36.4
--- NOTE | 2025-05-25 16:47 | ADMGEN ---
This patient, Shant Zaman, was admitted to Medical Room 347-. Patient/family oriented to hospital policies and general routines including ID bracelet, bed and alarms, visiting hours, pain management, procedures, bathroom and other care routines, personal items, smoking policy, room service/diet, and visiting hours. Information on how to activate the Rapid Response Team has been discussed. Patient/Family are encouraged to report perceived risks to care and to ask questions if they do not understand what they are told or what they should do.
[2025-05-25] MEDS: TAMSULOSIN HCL 0.4 MG CAPSULE 0.8 MG PO (21:31)
[2025-05-25 21:32] VITALS: PULSE 64
[2025-05-25] MEDS: METOPROLOL TARTRATE 50 MG TAB PO (21:32)
[2025-05-25] MEDS: BRIMONIDINE TARTRATE 0.2% OP SOLN 5 ML BTL 1 DROP EACH EYE (21:33)
[2025-05-25] MEDS: TIMOLOL MALEATE 0.5% OP SOLN 5 ML BOTTLE 1 DROP EACH EYE (21:33)
[2025-05-25 22:00] VITALS: BP 102/64; PULSE 97; RESP 18; TEMP 36.6; O2SAT 96
--- NOTE | 2025-05-26 00:07 | PM.IMHP ---
H&P: HPI History of Present Illness Date/Time: 05/26/25 00:07 Chief Complaint: Altered mental status Narrative: 79-year-old male with PMH rheumatoid arthritis, osteoarthritis, glaucoma, essential hypertension, history of UTI, indwelling De Leon catheter, paroxysmal atrial fibrillation, history of TIA, chronic venous insufficiency, CKD. Presents to [facility] ER on 05/25/2025 from [facility] with complaint of urinary symptoms and altered mental status. He has been taking an antibiotic for UTI per the facility but became increasingly confused on the day of admission. The De Leon catheter is not been changed in many weeks. Patient has pain on urination and purulence from his penile meatus. ER evaluation demonstrates a confused male, hemodynamic stability. WBC 7.5, sodium 136, BUN 26, serum creatinine 1.53 not far off from his baseline, blood glucose 170, lactic acid 2.3 improved no 1.1. LFTs within normal limits, CRP mildly elevated at 1.3. Urine appears cloudy, urinalysis demonstrating 51 to 100 WBC, occasional squamous cells, no bacteria, positive leukocyte esterase. Chest x-ray report reveals pulmonary venous congestion. I reviewed the chest x-ray. Patient was given ceftriaxone 2 g. 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 Transient ischemic attack (~2014) Paroxysmal atrial fibrillation (~10/2019) associated with sepsis Retinal vein occlusion of left eye Pre-diabetes Hemoglobin A1c was 6.3% in April 2019. Overactive bladder Essential hypertension Khoury palsy (~2018) Vitamin D deficiency Rheumatoid arthritis with rheumatoid factor of multiple sites without organ or systems involvement Glaucoma Osteoarthritis Hypogonadism in male Uses testosterone gel. 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 History of lithotripsy (~08/2022) Cystoscopy, left retrograde pyelography, left ureteroscopy with laser lithotripsy and stone extraction, left ureteral stent replacement History of lithotripsy (~02/2023) Cystoscopy, left ureteroscopy with laser lithotripsy, stone extraction stent placement History of ureter stent (~03/2023) Cystoscopy, left ureteroscopy with stone extraction and left ureteral stent placement History of glaucoma tube shunt procedure (~06/2023) Left H/O colonoscopy with polypectomy History of ureter stent (~10/2022) cystoscopy, left retrograde pyelogram and placement of left 6fr variable length stent Hx of lithotripsy (~04/2022) Left ESWL History of cystoscopy (~05/2022) cystoscopy, left retrograde pyelography and left ureteral stent placement History of left cataract surgery (~2009) History of appendectomy (~1957) Family History Family History Father Diabetes mellitus Acute myocardial infarction Heart disease Hypertension Mother Cerebrovascular accident Social History Social History Social History: The patient lives in [place] with his . They have 3 sons and 1 daughter. He smoked up to 3 packs of cigarettes per day and quit 1995. No alcohol or drug abuse. 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 [employer] Code status: Full code Surrogate decision maker: Vandana () Smoking packs per day: 3 Smoking cigarettes per day: 60.0 Years smoked: 34 Smoking pack-years: 102.00 Smoking status: Former smoker Second hand tobacco smoke exposure: No Additional smoking assessment comments: pt states he started smoking at age 20 Alcohol intake: never Substance use: never Substance use type: does not use Current Housing: Decline to Answer Concerned About Future Housing: Decline to Answer Difficulty Paying Gas/Electric Bills: Decline to Answer Difficulty Paying for Meds: Decline to Answer Currently Unemployed: Decline to Answer Education: Decline to Answer Difficulty w/ Childcare or Family Care: Decline to Answer Living arrangements: with family Additional living arrangements comments: - VANDANA Gender identity (if verbalized by the patient): Male Sexual Orientation (if Verbalized by the Patient): Straight or Heterosexual Spiritual care concerns: No Agree to blood products: Yes Meds Home Medications and Allergies Home Medications ?Medication ?Instructions ?Recorded ?Confirmed ?Type potassium citrate 15 mEq (1,620 15 meq PO BID 03/14/23 05/25/25 History mg) tablet,extended release brimonidine 0.2 %-timolol 0.5 % 1 drp EACH EYE Q12H 03/28/23 05/25/25 History eye drops duloxetine 30 mg capsule,delayed 30 mg PO BID #60 caps 11/29/23 05/25/25 Rx release tamsulosin 0.4 mg capsule 0.8 mg PO HS 04/13/24 05/25/25 History acetaminophen 500 mg capsule 1,000 mg PO BID PRN Pain (Scale 11/11/24 05/25/25 History Score 1-3) cephalexin 250 mg capsule 250 mg PO DAILY 11/11/24 05/25/25 History metoprolol tartrate 50 mg tablet 50 mg PO BID #180 tabs 01/16/25 05/25/25 Rx lisinopril 10 mg tablet 10 mg PO DAILY #90 tabs 01/26/25 05/25/25 Rx nystatin 100,000 unit/gram topical 1 applic topical QID #30 grams 05/14/25 05/25/25 Rx cream Allergies Allergy/AdvReac Type Severity Reaction Status Date / Time No Known Drug Allergies Allergy Mild unknown Verified 05/25/25 16:54 Vital Signs Vital Signs - 24 hr 05/25/25 13:59 05/25/25 14:07 05/25/25 15:14 Temperature 98.4 F Pulse Rate 80 73 Respiratory Rate 22 H 20 Blood Pressure 125/65 113/68 Pulse Oximetry 96 97 95 Oxygen Delivery Room Air Room Air 05/25/25 21:32 05/25/25 22:00 Temperature 97.9 F Pulse Rate 64 97 Respiratory Rate 18 Blood Pressure 102/64 Pulse Oximetry 96 Oxygen Delivery Exam Const: General: comfortable and no acute distress Other: Pleasantly confused Eyes: Pupils: Equal, round and reactive pupils present Neck: Neck: supple Resp: Effort & Inspection: normal respiratory effort Auscultation: clear to auscultation bilaterally Cardio: Rate: regular rate Rhythm: regular rhythm GI: Inspection: non-distended GI Palp: Yes Soft to palpation : General: Yes bladder normal to palpation Neuro: Motor exam (neuro): 5/5 motor strength present throughout Extrem: General: no edema H&P: Results Labs Labs: Short CBC 05/25/25 Range/Units 14:14 WBC 7.5 (4.5-10.0) K/mm3 Hgb 13.4 L (14.0-18.0) g/dL Hct 40.7 L (42.0-52.0) % Plt Count 277 (150-375) k/mm3 BMP 05/25/25 14:14 Sodium 136 L Potassium 4.7 Chloride 101 Carbon Dioxide 26 BUN 26 H Creatinine 1.53 H Glucose 170 H Calcium 8.9 Liver Function 05/25/25 Range/Units 14:14 Total Bilirubin 0.6 (0.2-1.3) mg/dL AST 33 (17-59) U/L ALT 28 (6-50) U/L Alkaline Phosphatase 63 (38-126) U/L Albumin 4.3 (3.5-5.1) g/dL Urine 05/25/25 Range/Units 14:49 Urine Color Yellow (Yellow) Urine Appearance Cloudy H (Clear) Urine pH 5.5 (5.0-9.0) Ur Specific Reagan 1.018 (1.001-1.035) Urine Protein 2+ H (Negative) mg/dL Urine Glucose (UA) Trace H (Negative) mg/dL Assessment and Plan Assessment and plan (1) Acute UTI: Code(s): N39.0 - Urinary tract infection, site not specified Status: Acute (2) Altered mental status: Code(s): R41.82 - Altered mental status, unspecified Status: Resolved Plan Most recent urine culture on 04/09/2024 demonstrates Klebsiella pneumonia intermediate resistance to nitrofurantoin otherwise pansensitive. Continue ceftriaxone. Follow-up urine culture and blood culture x2. Check CT brain for altered mental status. Resume [employer] metoprolol, duloxetine, tamsulosin. Hold [employer] lisinopril. De Leon catheter exchanged. ----- Full code. Fall precaution, ambulate with assistance. Saline lock IV. Hospitalist [facility] Advance Care Plan I have confirmed that the patient's Advanced Care Plan is present, code status is documented, or surrogate decision maker is listed in patient medical record.: Yes Medication Reconciliation I have utilized all available resources to obtain, update and review the patients current medications (includes all prescriptions, OTC, herbals, cannabis, and nutritional supplements).: Yes
--- NOTE | 2025-05-26 05:07 | PC.NURSE ---
PATIENT REFUSE BLOOD DRAW X3 ATTEMPTS. POLLO BACK FIST AND THREATENED TO PUNCH SHAQ, PHYSICIAN RELATIONS REPRESENTATIVE.
[2025-05-26 06:00] VITALS: BP 104/61; PULSE 64; RESP 18; TEMP 30.9; O2SAT 92
[2025-05-26 07:26] LABS: Hematocrit 36.0 % (42.0-52.0); Hemoglobin 12.0 g/dL (14.0-18.0); Immature Granulocyte Percent A 0.4 % (0-0.5); Lymphocytes Absolute Auto 0.75 K/mm3 (0.9-3.2); Mean Corpuscular HGB Conc 33.3 g/dl (32-36); Mean Corpuscular Hemoglobin 33.8 pg (26-34); Mean Corpuscular Volume 101.4 fl (80-100); Nucleated Red Blood Cells Absolute Auto 0.000 K/mm3 (0.0-0.012); Nucleated Red Blood Cells Perc 0.0 % (0.0-0.2); Platelet Count Result 220 k/mm3 (150-375); Red Blood Count 3.55 M/mm3 (4.6-6.20); White Blood Count 7.7 K/mm3 (4.5-10.0)
[2025-05-26 07:54] LABS: Alanine Aminotransferase 22 U/L (6-50); Albumin Level 3.5 g/dL (3.5-5.1); Alkaline Phosphatase 55 U/L (38-126); Anion Gap 4 mmol/L (4-12); Aspartate Amino Transferase 31 U/L (17-59); Bilirubin,Total 0.4 mg/dL (0.2-1.3); Blood Urea Nitrogen 22 mg/dL (9-20); Calcium 8.5 mg/dL (8.4-10.2); Carbon Dioxide 27 mmol/L (22-30); Chloride 105 mmol/L (98-107); Estimated CRCL calculation 52 ml/min; Estimated Glomerular Filt Rate 54; Glucose 116 mg/dL (65-110); Potassium 4.5 mmol/L (3.4-5.0); Sodium 136 mmol/L (137-145); Total Protein 6.8 g/dL (6.3-8.2)
[2025-05-26 09:32] VITALS: PULSE 64
[2025-05-26] MEDS: BRIMONIDINE TARTRATE 0.2% OP SOLN 5 ML BTL 1 DROP EACH EYE ×2 (09:32→20:03)
[2025-05-26] MEDS: METOPROLOL TARTRATE 50 MG TAB PO ×2 (09:32→20:01)
[2025-05-26] MEDS: cefTRIAXone 2 GM in SODIUM CHLORIDE 0.9% IV 100 ML 200 ML IVPB (09:41)
[2025-05-26] MEDS: TIMOLOL MALEATE 0.5% OP SOLN 5 ML BOTTLE 1 DROP EACH EYE ×2 (09:59→20:03)
[2025-05-26 14:00] VITALS: BP 133/79; PULSE 69; RESP 16; TEMP 36.4; O2SAT 93
--- NOTE | 2025-05-26 18:20 | PM.IMPN ---
Progress Note: A&P Assessment and Plan (1) Acute UTI: Code(s): N39.0 - Urinary tract infection, site not specified Status: Acute Assessment and Plan: Recently seen for UTI, discharged to care home and was on antibiotics over mentation continued to worsen, with pain complaint of purulence from as per patient. Urine collected cloudy with significant white blood cell count and leukocyte Esterase to suggest UTI has persisted. Currently on ceftriaxone at this time repeat urine culture currently pending. Patient does appear to be improving clinically on ceftriaxone, which will continue at this time (2) Acute on chronic urinary retention: Code(s): R33.9 - Retention of urine, unspecified Status: Acute Assessment and Plan: Chronic urinary retention with chronic De Leon catheter in place (3) Altered mental status: Code(s): R41.82 - Altered mental status, unspecified Status: Resolved Assessment and Plan: Improving, patient appears to be coming closer to baseline Continue managing ENT is likely cause of metabolic encephalopathy Subjective Date/time seen: 05/26/25 18:20 Review of Systems Review of Systems: All systems reviewed & are unremarkable except as noted in HPI and below (Subjective) Exam Const: General: comfortable and no acute distress Other: Confusion appears to be improving Eyes: Pupils: Equal, round and reactive pupils present Neck: Neck: supple Resp: Effort & Inspection: normal respiratory effort Auscultation: clear to auscultation bilaterally Cardio: Rate: regular rate Rhythm: regular rhythm GI: Inspection: non-distended GI Palp: Yes Soft to palpation : General: Yes bladder normal to palpation Neuro: Motor exam (neuro): 5/5 motor strength present throughout Extrem: General: no edema Objective Data Vital Signs Vital Signs: Vital Signs - 24 hr 05/25/25 20:00 05/25/25 21:32 05/25/25 22:00 Temperature 97.9 F Pulse Rate 64 97 Respiratory Rate 18 Blood Pressure 102/64 Pulse Oximetry 96 Oxygen Delivery Room Air 05/26/25 06:00 05/26/25 09:32 05/26/25 14:00 Temperature 87.7 F L 97.6 F Pulse Rate 64 64 69 Respiratory Rate 18 16 Blood Pressure 104/61 133/79 Pulse Oximetry 92 93 Oxygen Delivery Intake/Output Intake/Output: Intake & Output 05/23/25 05/24/25 05/25/25 05/26/25 23:59 22:59 23:59 23:59 Intake Total 340 1178 Output Total 125 950 Balance 215 228 Meds/Results Medications: Active Medications Generic Name Dose Route Start Last Admin Trade Name Ney PRN Reason Stop Dose Admin Brimonidine Tartrate 1 drop 05/25/25 21:00 05/26/25 09:32 Brimonidine Tartrate 0.2% Op Soln 5 Ml Btl EACH EYE 1 drop Q12HR MART Administration Duloxetine HCl 30 mg 05/25/25 21:00 05/26/25 09:32 Duloxetine Hcl 30 Mg Capsule.Dr PO 30 mg Q12HR MART Administration Ceftriaxone Sodium 2 gm/ 100 mls @ 200 mls/hr 05/26/25 09:00 05/26/25 09:41 Sodium Chloride IVPB 200 mls/hr Q24H MART Administration Metoprolol Tartrate 50 mg 05/25/25 21:00 05/26/25 09:32 Metoprolol Tartrate 50 Mg Tab PO 50 mg Q12HR MART Administration Tamsulosin HCl 0.8 mg 05/25/25 21:00 05/25/25 21:31 Tamsulosin Hcl 0.4 Mg Capsule PO 0.8 mg HS MART Administration Timolol Maleate 1 drop 05/25/25 21:00 05/26/25 09:59 Timolol Maleate 0.5% Op Soln 5 Ml Bottle EACH EYE 1 drop Q12HR MART Administration Radiology Results: ITS Impressions Chest X-Ray 05/25/25 14:41 Impression: Mild CHF Head CT 05/26/25 07:06 IMPRESSION: 1. No acute intracranial findings. Labs Labs: Laboratory Results - last 24 hr 05/26/25 07:21 WBC 7.7 RBC 3.55 L Hgb 12.0 L Hct 36.0 L MCV 101.4 H MCH 33.8 MCHC 33.3 RDW 13.1 Plt Count 220 MPV 8.4 Immature Gran % (Auto) 0.4 Neut % (Auto) 74.5 H Lymph % (Auto) 9.7 L [place] % (Auto) 9.5 H Eos % (Auto) 5.1 H Baso % (Auto) 0.8 Lymph # (Auto) 0.75 L [place] # (Auto) 0.7 H Eos # (Auto) 0.4 H Baso # (Auto) 0.1 Abs Immat Gran (auto) 0.03 Absolute Neuts (auto) 5.8 Absolute Nucleated RBC 0.000 Nucleated RBC % 0.0 Sodium 136 L Potassium 4.5 Chloride 105 Carbon Dioxide 27 Anion Gap 4 BUN 22 H Creatinine 1.29 Estim Creat Clear Calc 52 Estimated GFR 54 L Glucose 116 H Calcium 8.5 Total Bilirubin 0.4 AST 31 ALT 22 Alkaline Phosphatase 55 Total Protein 6.8 Albumin 3.5 Hospitalist MIPS Advance Care Plan I have confirmed that the patient's Advanced Care Plan is present, code status is documented, or surrogate decision maker is listed in patient medical record.: Yes Medication Reconciliation I have utilized all available resources to obtain, update and review the patients current medications (includes all prescriptions, OTC, herbals, cannabis, and nutritional supplements).: Yes The patient is not eligible for med reconciliation; the patient is in a emergent medical situation where delaying treatment would jeopardize the patients health.: Yes
[2025-05-26 20:00] VITALS: PULSE 69; RESP 16; O2SAT 95
[2025-05-26] MEDS: TAMSULOSIN HCL 0.4 MG CAPSULE 0.8 MG PO (20:01)
[2025-05-26 20:13] VITALS: O2SAT 95
[2025-05-26 21:23] VITALS: BP 140/90; PULSE 69; RESP 16; TEMP 36.7; O2SAT 95
[2025-05-27 05:52] LABS: Hematocrit 37.9 % (42.0-52.0); Hemoglobin 12.4 g/dL (14.0-18.0); Immature Granulocyte Percent A 0.5 % (0-0.5); Lymphocytes Absolute Auto 0.66 K/mm3 (0.9-3.2); Mean Corpuscular HGB Conc 32.7 g/dl (32-36); Mean Corpuscular Hemoglobin 33.3 pg (26-34); Mean Corpuscular Volume 101.9 fl (80-100); Nucleated Red Blood Cells Absolute Auto 0.000 K/mm3 (0.0-0.012); Nucleated Red Blood Cells Perc 0.0 % (0.0-0.2); Platelet Count Result 243 k/mm3 (150-375); Red Blood Count 3.72 M/mm3 (4.6-6.20); White Blood Count 7.4 K/mm3 (4.5-10.0)
[2025-05-27 06:00] VITALS: BP 113/61; PULSE 62; RESP 18; TEMP 36.1; O2SAT 92
[2025-05-27 06:13] LABS: Alanine Aminotransferase 20 U/L (6-50); Albumin Level 3.8 g/dL (3.5-5.1); Alkaline Phosphatase 57 U/L (38-126); Anion Gap 6 mmol/L (4-12); Aspartate Amino Transferase 25 U/L (17-59); Bilirubin,Total 0.5 mg/dL (0.2-1.3); Blood Urea Nitrogen 20 mg/dL (9-20); Calcium 8.7 mg/dL (8.4-10.2); Carbon Dioxide 25 mmol/L (22-30); Chloride 104 mmol/L (98-107); Estimated CRCL calculation 54 ml/min; Estimated Glomerular Filt Rate 56; Glucose 117 mg/dL (65-110); Potassium 4.1 mmol/L (3.4-5.0); Sodium 135 mmol/L (137-145); Total Protein 7.2 g/dL (6.3-8.2)
[2025-05-27 08:24] VITALS: PULSE 62
[2025-05-27] MEDS: BRIMONIDINE TARTRATE 0.2% OP SOLN 5 ML BTL 1 DROP EACH EYE (08:24)
[2025-05-27] MEDS: cefTRIAXone 2 GM in SODIUM CHLORIDE 0.9% IV 100 ML 200 ML IVPB (08:24)
[2025-05-27] MEDS: TIMOLOL MALEATE 0.5% OP SOLN 5 ML BOTTLE 1 DROP EACH EYE (08:24)
[2025-05-27] MEDS: METOPROLOL TARTRATE 50 MG TAB PO (08:24)
--- NOTE | 2025-05-27 14:12 | P.DS_ITS ---
DS: Admitting Diagnosis Discharge Date 05/27/25 Admitting Diagnosis UTI DS: Discharge Diagnosis Discharge Diagnosis (1) Acute UTI: Code(s): N39.0 - Urinary tract infection, site not specified Status: Acute Assessment and Plan: Admitted for recurrent UTI, patient was on antibiotics for nursing note mental status was progressively worsening. Urine collected is cloudy with significant indication of UTI. Admitted for same, started on ceftriaxone with significant improvement in mental and clinical status during hospitalization, patient denied further lower urinary tract symptoms and denies further purulence from meatus. White blood cell count remained stable throughout hospitalization, and urine culture final result was negative with no growth. As such patient was deemed safe for discharge to complete oral antibiotic course with cautious monitoring for worsening of symptoms. (2) Acute on chronic urinary retention: Code(s): R33.9 - Retention of urine, unspecified Status: Acute Assessment and Plan: Patient notes chronic De Leon catheter in place and sees Urology outpatient. He does appointment next week for follow-up. Will discharge with De Leon catheter in place and advised patient to keep urology appointment. (3) Acute metabolic encephalopathy: Code(s): G93.41 - Metabolic encephalopathy Status: Acute Assessment and Plan: Likely due to UTI which is improved at this time. Patient is now much more awake and alert on evaluation. (4) CKD stage 3a, GFR 45-59 ml/min: Code(s): N18.31 - Chronic kidney disease, stage 3a Status: Acute Assessment and Plan: Possible STEVENSON and CKD noted on labs however improvement creatinine to 1.25 today/GFR 56. DS: Summary Hospital Course Hospital Course: 79-year-old male with PMH rheumatoid arthritis, osteoarthritis, glaucoma, essential hypertension, history of UTI, indwelling De Leon catheter, paroxysmal atrial fibrillation, history of TIA, chronic venous insufficiency, CKD. Prese nts to [facility] on 05/25/2025 from [facility] with complaint of urinary symptoms and altered mental status. He has been taking an antibiotic for UTI per the facility but became increasingly confused on the day of admission. The De Leon catheter is not been changed in many weeks. Patient has pain on urination and purulence from his penile meatus. ER evaluation demonstrates a confused male, hemodynamic stability. WBC 7.5, sodium 136, BUN 26, serum creatinine 1.53 not far off from his baseline, blood glucose 170, lactic acid 2.3 improved no 1.1. LFTs within normal limits, CRP mildly elevated at 1.3. Urine appears cloudy, urinalysis demonstrating 51 to 100 WBC, occasional squamous cells, no bacteria, positive leukocyte esterase. Chest x-ray report reveals pulmonary venous congestion. I reviewed the chest x- ray. Patient was given ceftriaxone 2 g. Patient was started on antibiotics, IV ceftriaxone, wall urine culture was processed. He began to show gradual improvement in mental state, clinical status normal renal function. Urine culture final result was negative with no growth. CT head was conducted and negative as well. Given these improvements very rapidly, patient deemed safe for discharge with oral antibiotic course to complete. Time Spent with Patient Time attestation: Total time spent providing and/or coordinating discharge services: Exam Const: General: comfortable and no acute distress Other: Confusion appears to be improving Eyes: Pupils: Equal, round and reactive pupils present Neck: Neck: supple Resp: Effort & Inspection: normal respiratory effort Auscultation: clear to auscultation bilaterally Cardio: Rate: regular rate Rhythm: regular rhythm GI: Inspection: non-distended GI Palp: Yes Soft to palpation : General: Yes bladder normal to palpation Neuro: Motor exam (neuro): 5/5 motor strength present throughout Extrem: General: no edema DS: Data Data Completed and Pending Labs on day of discharge: Labs from last 24 hours 05/27/25 05:37 WBC 7.4 RBC 3.72 L Hgb 12.4 L Hct 37.9 L MCV 101.9 H MCH 33.3 MCHC 32.7 RDW 12.9 Plt Count 243 MPV 8.4 Immature Gran % (Auto) 0.5 Neut % (Auto) 73.4 H Lymph % (Auto) 9.0 L [place] % (Auto) 10.3 H Eos % (Auto) 6.0 H Baso % (Auto) 0.8 Lymph # (Auto) 0.66 L [place] # (Auto) 0.8 H Eos # (Auto) 0.4 H Baso # (Auto) 0.1 Abs Immat Gran (auto) 0.04 H Absolute Neuts (auto) 5.4 Absolute Nucleated RBC 0.000 Nucleated RBC % 0.0 Sodium 135 L Potassium 4.1 Chloride 104 Carbon Dioxide 25 Anion Gap 6 BUN 20 Creatinine 1.25 Estim Creat Clear Calc 54 Estimated GFR 56 L Glucose 117 H Calcium 8.7 Total Bilirubin 0.5 AST 25 ALT 20 Alkaline Phosphatase 57 Total Protein 7.2 Albumin 3.8 Preliminary micro results at discharge 05/25/25 14:15 Blood Culture - Preliminary Blood 05/25/25 14:35 Blood Culture - Preliminary Blood Discharge Plan Discharge Discharging Clinician: Kayden Cole Oca Patient Disposition: Other Activity: as tolerated Diet: heart healthy Discharge Instructions: Complete antibiotic course for the next 5 days to total 7 days of treatment. If symptoms return, please return via ED for repeat urine culture if needed. Please keep urology appointment next week to follow up urinary symptoms. Patient Instructions: Antibiotic Form Patient Language: Taiwanese Stand Alone Forms: General Discharge Information Follow-up/Referrals: Pablo Walker MD [Physician, Urology] Discharge Medications: New cefpodoxime 200 mg tablet 200 mg PO Q12H 5 Days Qty: 10 0RF Rx Instructions: must administer with a meal/food Continued acetaminophen 500 mg capsule 1,000 mg PO BID PRN (Reason: Pain (Scale Score 1-3)) 30 Days Qty: 0 0RF metoprolol tartrate 50 mg tablet 50 mg PO BID 30 Days Qty: 180 1RF lisinopril 10 mg tablet 10 mg PO DAILY 30 Days Qty: 90 1RF duloxetine 30 mg capsule,delayed release(DR/EC) 30 mg PO BID 30 Days Qty: 60 4RF potassium citrate 15 mEq tablet extended release 15 meq PO BID 30 Days Qty: 0 0RF tamsulosin 0.4 mg capsule 0.8 mg PO HS 30 Days Qty: 0 0RF nystatin 100,000 unit/gram cream 1 applic topical QID 30 Days Qty: 30 0RF brimonidine-timolol 0.2-0.5 % drops 1 drp EACH EYE Q12H 30 Days Qty: 1 0RF Discontinued cephalexin 250 mg capsule 250 mg PO DAILY Date of admission: 05/25/25 15:35 Primary Care Provider: Bubba Cho Admitting Provider: Melody Shelby Attending physician on admission: Melody Shelby Condition: Stable Hospitalist MIPS Heart Failure (Exclusion) Patient has history of Heart Transplant or Left Ventricular Assistive Device?: No IF YES, STOP HERE Heart Failure (Qualifier) Patient has current or prior documentation of LVEF less than or equal to 40%, or mod/servere depressed LVSF?: No IF NO, STOP HERE
== END 2025-05-27 17:00 | DRG 689 ==
LOC: ANHED 14:12 → ANH3MED 16:03
PROVIDERS: Nurse Practitioner Adult Health; Admitting Provider Internal Medicine; Emergency Provider Student in an Organized Health Care Education/Training Program; PCP Family Medicine; Visit Provider Student in an Organized Health Care Education/Training Program
DX: N39.0 Urinary tract infection, site not specified (principal); G93.41 Metabolic encephalopathy; R33.9 Retention of urine, unspecified; E55.9 Vitamin D deficiency, unspecified; H40.9 Unspecified glaucoma; H54.7 Unspecified visual loss; I12.9 Hypertensive chronic kidney disease with stage 1 through stage 4 chronic kidney disease, or unspecified chronic kidney disease; I48.0 Paroxysmal atrial fibrillation; M10.9 Gout, unspecified; M06.9 Rheumatoid arthritis, unspecified; M19.90 Unspecified osteoarthritis, unspecified site; N18.31 Chronic kidney disease, stage 3a; Z86.73 Personal history of transient ischemic attack (TIA), and cerebral infarction without residual deficits; Z85.46 Personal history of malignant neoplasm of prostate; Z86.711 Personal history of pulmonary embolism
CPT/HCPCS: 36415; 70450; 71045; 80053; 81001; 82948; 83605; 85025; 85610; 85730; 86140; 87040; 87086; 93005; 99285; A9270; J0696; J7030

== ENCOUNTER 2025-06-03 09:54 | Outpatient (CLI) | payer MEDICARE, SELFPAY ==
--- NOTE | ~2025-06-03 | CT_ITS ---
EXAMINATION: CT abdomen pelvis w con DATE: 06/03/2025 11:34 INDICATION: Urinary tension TECHNIQUE: Computed tomography (CT) of the abdomen and pelvis was performed with 100 mL Omnipaque-350 intravenous contrast. Automated exposure control and iterative reconstruction technique were employed. The dose-length product was 1333.73 mGy-cm. COMPARISON: 03/21/2024 FINDINGS: Again seen is mild scattered linear discoid atelectasis/scarring at the bilateral lung bases. Heart size is normal. Atherosclerotic coronary artery calcific lesion. No pericardial or pleural effusion. Liver, gallbladder, spleen, pancreas and bilateral adrenal glands are normal. There is mild likely age- related bilateral renal cortical atrophy. 1.5 cm cyst at the lower pole of the right kidney. De Leon catheter within the decompressed bladder. Mild prostatomegaly measuring 4.6 x 3.6 cm. Mild sigmoid diverticulosis without adjacent from trace stranding to suggest diverticulitis. No bowel obstruction. There is calcified atherosclerosis of the normal caliber abdominal aorta and many of the other arteries. No free intraperitoneal gas or fluid. No pathologically enlarged abdominal or pelvic lymphadenopathy. Mild upper lumbar dextrocurvature with severe spondylosis. IMPRESSION: 1. Mild prostatomegaly with De Leon catheter within the decompressed bladder. No acute intra-abdominal/pelvic process. Reviewed, dictated and finalized at location A. NUE ACCOUNTING MANAGER
--- OUTSIDE RECORDS SUMMARY | 2025-06-03 10:57 | XMS_ITS | Clinical Summary ---
Author Organization [facility] [employer] Address [address] [place] [address] Care Team Providers Care Auto Dealership Porter Name Role Phone Jacinto Marion MD Primary Care Provider [phone] Source Comments [facility] [employer],non-owned Affiliates and Associated Physician Practices is amultiple site organization consisting of ambulatory clinics and hospital sitesin [place], [place], [place] and [place]. This disclosure is being madepursuant to the Care Everywhere program and may not contain all information available regarding this patient. Last updated 18.[facility] [employer] Allergies No known active allergies Immunizations Immunization [...] age to complete this topic Insurance MEDICARE [facility] MEDICARE MEDICARE MEDICARE Member Subscriber Plan / Payer (Ef fective for All Dates) Name:Shant Kebede Member ID:[id number] Relation to Subscriber:Self Name:SHANT KEBEDE Subscriber ID:[id number] Payer ID:Not on file Group ID:Not on file Type:Medicare Address: [place] [id number] MEDICARE Member Subscriber Plan / Payer (Ef fective for All Dates) Name:Shant Kebede Member ID:[id number] Relation to Subscriber:Self Name:SHANT KEBEDE Subscriber ID:[id number] Payer ID:Not on file Group ID:Not on file Type:Medicare Address: [place] [id number] MEDICARE MEDICARE [facility] MEDICARE AAR MEDICARE Member Subscriber Plan / Payer (Ef fective for All Dates) Name:KebedeShant aden Member ID:[id number] Relation to Subscriber:Self Name:Shant Kebede Subscriber ID:[id number] Payer ID:Not on file Group ID:Not on file Type:Medicare Address: [address] MEDICARE Member Subscriber Plan / Payer (Ef fective for All Dates) Name:Kebede, Shant Member ID:[id number] Relation to Subscriber:Self Name:KebedeShant aden Subscriber ID:[id number] Payer ID:Not on file Group ID:Not on file Type:Medicare Address: [address] Member Subscriber Plan / Payer (Ef fective for All Dates) Name:Shant Kebede Member ID:Not on file Relation to Subscriber:Self Name:Shant Kebede Subscriber ID:Not on file Payer ID:Not on file Group ID:Not on file Type:Commercial Address: [place] [phone] Member Subscriber Plan / Payer (Ef fective for All Dates) Name:Shant Kebede Member ID:[id number] Relation to Subscriber:Self Name:Delio Shant Subscriber ID:[id number] Payer ID:Not on file Group ID:Not on file Type:Medicare Address: [address] AARP Member Subscriber Plan / Payer (Ef fective for All Dates) Name:Shant Kebede Member ID:Not on file Relation to Subscriber:Self Name:Shant Kebede Subscriber ID:Not on file Payer ID:Not on file Group ID:Not on file Type:Commercial Address: [place] [phone] Care Teams Auto Dealership Porter Relationship Specialty Start Date End Date Jacinto Marion MD [address] [place] [address] PCP - General 10/19/22
--- OUTSIDE RECORDS SUMMARY | 2025-06-03 10:57 | XMS_ITS | Clinical Summary ---
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 Gender Identity Not on file Sexual Orientation Not on file Last Filed Vital Signs Vital Sign Reading Time Taken Comments Blood Pressure 102/70 07/28/2020 1:18 PM PHOTOENGRAVING ETCHER APPRENTICE Pulse 60 07/28/2020 1:18 PM PHOTOENGRAVING ETCHER APPRENTICE Temperature 36.6 C (97.9 F) 07/28/2020 1:18 PM PHOTOENGRAVING ETCHER APPRENTICE Respiratory Rate 18 07/28/2020 1:18 PM PHOTOENGRAVING ETCHER APPRENTICE Oxygen Saturation 95% 07/28/2020 1:18 PM PHOTOENGRAVING ETCHER APPRENTICE Inhaled Oxygen Concentration - - Weight 112.5 kg (248 lb) 07/28/2020 1:18 PM PHOTOENGRAVING ETCHER APPRENTICE Height 176.5 cm (5' 9.5) 07/28/2020 1:18 PM PHOTOENGRAVING ETCHER APPRENTICE Body Mass Index 36.1 07/28/2020 1:18 PM PHOTOENGRAVING ETCHER APPRENTICE Plan of Treatment Health Maintenance Due Date [...] complete this topic Insurance MEDICARE Care Teams Window Cutter Relationship Specialty Start Date End Date Raciel Gorman MD PCP - General INTERNAL MEDICINE 07/28/20 Chencho Garcia MD Referring Physician OPHTHALMOLOGY 07/28/20 Shant Leon MD Referring Physician OPHTHALMOLOGY 07/28/20 Ubaldo Walters MD Consulting Physician INTERNAL MEDICINE 07/28/20
--- OUTSIDE RECORDS SUMMARY | 2025-06-03 10:57 | XMS_ITS | Clinical Summary ---
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 [id number] Care Teams Commutator Repairer Relationship Specialty Start Date End Date Campbell Cho MD [address] [place] [address] PCP - General Family Practice 09/07/21
--- OUTSIDE RECORDS SUMMARY | 2025-06-03 10:57 | XMS_ITS | Clinical Summary ---
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
== END 2025-06-03 09:55 | disposition home or self-care (01) ==
PROVIDERS: PCP Family Medicine; Visit Provider Physician Assistant
DX: N40.1 Benign prostatic hyperplasia with lower urinary tract symptoms (principal); T83.098A Other mechanical complication of other urinary catheter, initial encounter; R33.9 Retention of urine, unspecified
CPT/HCPCS: 74177; Q9967

== ENCOUNTER 2025-06-29 15:30 | Emergency (ER) | payer MEDICARE, SELFPAY ==
[2025-06-29 15:46] VITALS: BP 105/67; PULSE 93; RESP 16; TEMP 36.8; O2SAT 96
--- NOTE | 2025-06-29 17:21 | ED_ITS ---
HPI - General Adult General Chief complaint: Urogenital-Male <ALEXIS Dowell - Last Filed: 06/29/25 18:14> Stated complaint: pulled his fleming cath, <ALEXIS Dowell - Last Filed: 06/29/25 18:14> Time Seen by Provider: 06/29/25 18:20 <ALEXIS Dowell - Last Filed: 06/29/25 18:14> Focused HPI: 79 year old male presenting from assisted living after accidentally pulling out his Fleming catheter. Patient's family states that afterwards he went to urinate and had hematuria. Reports no other complaints. GENERAL: Well-appearing, well-nourished, and in no acute distress. HEAD: Normocephalic, atraumatic. CHEST: Clear to auscultation. ?No respiratory distress. HEART: Regular rate and rhythm.? NEURO: ?Alert and oriented x3. Patient screened in triage and initial orders placed.? ?Additional care and disposition to be based upon?diagnostic testing and treatment. <ALEXIS Dowell - Last Filed: 06/29/25 18:14> History of Present Illness HPI narrative: agree with HPI <Lisa Monzon MD - Last Filed: 06/29/25 19:09> Related Data Allergies/adverse reactions: Allergies Allergy/AdvReac Type Severity Reaction Status Date / Time No Known Drug Allergies Allergy Mild unknown Verified 06/09/25 13:19 <ALEXIS Dowell - Last Filed: 06/29/25 18:14> Review of Systems Review of Systems: All systems reviewed & are unremarkable except as noted in HPI and below <Lisa Monzon MD - Last Filed: 06/29/25 19:09> PMFSH Past Medical History Medical History: Medical History Recurrent UTI 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 Transient ischemic attack (~2014) Paroxysmal atrial fibrillation (~10/2019) associated with sepsis Retinal vein occlusion of left eye Pre-diabetes Hemoglobin A1c was 6.3% in April 2019. Overactive bladder Essential hypertension Khoury palsy (~2018) Vitamin D deficiency Rheumatoid arthritis with rheumatoid factor of multiple sites without organ or systems involvement Glaucoma Osteoarthritis Hypogonadism in male Uses testosterone gel. 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 History of lithotripsy (~08/2022) Cystoscopy, left retrograde pyelography, left ureteroscopy with laser lithotripsy and stone extraction, left ureteral stent replacement History of lithotripsy (~02/2023) Cystoscopy, left ureteroscopy with laser lithotripsy, stone extraction stent placement History of ureter stent (~03/2023) Cystoscopy, left ureteroscopy with stone extraction and left ureteral stent placement History of glaucoma tube shunt procedure (~06/2023) Left H/O colonoscopy with polypectomy History of ureter stent (~10/2022) cystoscopy, left retrograde pyelogram and placement of left 6fr variable length stent Hx of lithotripsy (~04/2022) Left ESWL History of cystoscopy (~05/2022) cystoscopy, left retrograde pyelography and left ureteral stent placement History of left cataract surgery (~2009) History of appendectomy (~1957) <ALEXIS Dowell - Last Filed: 06/29/25 18:14> Family History Family History: Family History Father Diabetes mellitus Acute myocardial infarction Heart disease Hypertension Mother Cerebrovascular accident <ALEXIS Dowell - Last Filed: 06/29/25 18:14> Social History Social History: Social History Social History: The patient lives in [place] with his . They have 3 sons and 1 daughter. He smoked up to 3 packs of cigarettes per day and quit 1995. No alcohol or drug abuse. 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 [employer] Code status: Full code Surrogate decision maker: Dariusz () Smoking packs per day: 3 Smoking cigarettes per day: 60.0 Years smoked: 34 Smoking pack-years: 102.00 Smoking status: Former smoker (pt's states it was about when pt quit) Second hand tobacco smoke exposure: No Additional smoking assessment comments: pt states he started smoking at age 20 Alcohol intake: never Substance use: never Substance use type: does not use Current Housing: Decline to Answer Concerned About Future Housing: Decline to Answer Difficulty Paying Gas/Electric Bills: Decline to Answer Difficulty Paying for Meds: Decline to Answer Currently Unemployed: Decline to Answer Education: Decline to Answer Difficulty w/ Childcare or Family Care: Decline to Answer Living arrangements: with family Additional living arrangements comments: - [facility] Gender identity (if verbalized by the patient): Male Sexual Orientation (if Verbalized by the Patient): Straight or Heterosexual Spiritual care concerns: No Agree to blood products: Yes <ALEXIS Dowell - Last Filed: 06/29/25 18:14> Exam Narrative: EXAMINATION OF ORGAN SYSTEMS/BODY AREAS: Constitutional: Vital signs per nursing GENERAL: No acute distress, non-toxic appearing. HEAD: Normal with no signs of head trauma. EYES: EOMI, conjunctiva normal ENT: Hearing grossly intact LUNGS: Nonlabored breathing. HEART: Regular rate and rhythm ABD: Soft, nontender to palpation : Some blood in diaper and around meatus EXT: Normal range of motion SKIN: No rashes or lesions. NEURO: Alert. No gross focal sensory or strength deficits. PSYCH: Normal affect <Lisa Monzon MD - Last Filed: 06/29/25 19:09> Course Vital Signs Vital signs: Vital Signs Temperature 98.2 F 06/29/25 15:46 Pulse Rate 93 06/29/25 15:46 Respiratory Rate 16 06/29/25 15:46 Blood Pressure 105/67 06/29/25 15:46 Pulse Oximetry 96 06/29/25 15:46 Oxygen Delivery Room Air 06/29/25 15:46 Temperature 98.2 F 06/29/25 15:46 Pulse Rate 93 06/29/25 15:46 Respiratory Rate 16 06/29/25 15:46 Blood Pressure 105/67 06/29/25 15:46 Pulse Oximetry 96 06/29/25 15:46 Oxygen Delivery Room Air 06/29/25 15:46 <ALEXIS Dowell - Last Filed: 06/29/25 18:14> Vital Signs Temperature 98.2 F 06/29/25 15:46 Pulse Rate 93 06/29/25 15:46 Respiratory Rate 16 06/29/25 15:46 Blood Pressure 105/67 06/29/25 15:46 Pulse Oximetry 96 06/29/25 15:46 Oxygen Delivery Room Air 06/29/25 15:46 Temperature 98.2 F 06/29/25 15:46 Pulse Rate 93 06/29/25 15:46 Respiratory Rate 16 06/29/25 15:46 Blood Pressure 105/67 06/29/25 15:46 Pulse Oximetry 96 06/29/25 15:46 Oxygen Delivery Room Air 06/29/25 15:46 <Lisa Monzon MD - Last Filed: 06/29/25 19:09> [facility] MDM Narrative Medical decision making narrative: 79M presents after accidental traumatic removal of his Fleming. He is reporting some pain but otherwise well-appearing, there is some injury visible, Fleming placed here, discussed with urologist who agrees with plan and follow-up. <Lisa Monzon MD - Last Filed: 06/29/25 19:09> Differential Diagnosis Differential Diagnosis: Traumatic removal of Fleming; injury to urethra, bladder <Lisa Monzon MD - Last Filed: 06/29/25 19:09> Lab Data Labs: Lab Results 06/29/25 Range/Units 18:51 Urine Color Pending Urine Appearance Pending Urine pH Pending Ur Specific [place] Pending Urine Protein Pending Urine Glucose (UA) Pending Urine Ketones Pending Ur Blood (Man) Pending Urine Nitrate Pending Urine Bilirubin Pending Urine Urobilinogen Pending Leukocyte Esterase Rfl Pending <ALEXIS Dowell - Last Filed: 06/29/25 18:14> Lab Results 06/29/25 Range/Units 18:51 Urine Color Pending Urine Appearance Pending Urine pH Pending Ur Specific [place] Pending Urine Protein Pending Urine Glucose (UA) Pending Urine Ketones Pending Ur Blood (Man) Pending Urine Nitrate Pending Urine Bilirubin Pending Urine Urobilinogen Pending Leukocyte Esterase Rfl Pending <Lisa Monzon MD - Last Filed: 06/29/25 19:09> Discharge Plan Discharge Clinical Impression: Dislodged Fleming catheter <ALEXIS Dowell - Last Filed: 06/29/25 18:14> Patient Disposition: NH Senior Care/Asst Living <ALEXIS Dowell - Last Filed: 06/29/25 18:14> Condition: Stable <ALEXIS Dowell - Last Filed: 06/29/25 18:14> Instructions: Fleming Catheter Placement and Care (ED) <ALEXIS Dowell - Last Filed: 06/29/25 18:14> Additional Instructions: Please follow-up with your urologist. If you have any further issues, come back to the emergency room. <ALEXIS Dowell - Last Filed: 06/29/25 18:14> Patient Language: Portuguese <ALEXIS Dowell - Last Filed: 06/29/25 18:14> Prescriptions: No Action nystatin 100,000 unit/gram cream 1 applic topical QID 30 Days Qty: 30 0RF fluconazole 150 mg tablet 150 mg PO Q3D Qty: 2 0RF nystatin 100,000 unit/gram powder 1 applic topical BID Qty: 60 0RF Rx Instructions: Apply to affected areas in groins tamsulosin 0.4 mg capsule 0.8 mg PO HS 30 Days Qty: 0 0RF lisinopril 10 mg tablet 10 mg PO DAILY 30 Days Qty: 90 1RF metoprolol tartrate 50 mg tablet 50 mg PO BID 30 Days Qty: 180 1RF acetaminophen 500 mg capsule 1,000 mg PO BID PRN (Reason: Pain (Scale Score 1-3)) 30 Days Qty: 0 0RF duloxetine 30 mg capsule,delayed release(DR/EC) 30 mg PO BID 30 Days Qty: 60 4RF potassium citrate 15 mEq tablet extended release 15 meq PO BID 30 Days Qty: 0 0RF brimonidine-timolol 0.2-0.5 % drops 1 drp EACH EYE Q12H 30 Days Qty: 1 0RF aspirin 81 mg tablet,chewable 81 mg PO DAILY Qty: 30 0RF cranberry fruit 450 mg tablet 450 mg PO DAILY Qty: 30 0RF Rx Instructions: administer with a meal <ALEXIS Dowell - Last Filed: 06/29/25 18:14> Follow-up/Referrals: Bubba Cho MD [Primary Care Provider, Family Practice] Pablo Walker MD [Physician, Urology] - 3 Days <ALEXIS Dowell - Last Filed: 06/29/25 18:14>
[2025-06-29] MEDS: LIDOCAINE 2% GEL UROJET 10 ML PKG MUCOUS MEM (18:30)
[2025-06-29 19:17] VITALS: BP 165/111; PULSE 55; RESP 20; O2SAT 94
[2025-06-29 19:25] LABS: Add Urine Microscopic? YES
[2025-06-29 19:27] LABS: Appearance Urine Turbid (Clear); Glucose Urine UA Negative (Negative); Specific Grav Ur 1.015 (1.001-1.035)
[2025-06-29 19:28] LABS: Leukocyte Esterase Ur 2+ LEU/UL (Negative); Nitrate Urine Positive (Negative)
--- OUTSIDE RECORDS SUMMARY | 2025-06-29 20:24 | XMS_ITS | Clinical Summary ---
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 SPECIALIST Gender Identity Not on file Sexual Orientation Not on file Last Filed Vital Signs Vital Sign Reading Time Taken Comments Blood Pressure 102/70 07/28/2020 1:18 PM CURATORIAL SPECIALIST Pulse 60 07/28/2020 1:18 PM CURATORIAL SPECIALIST Temperature 36.6 C (97.9 F) 07/28/2020 1:18 PM CURATORIAL SPECIALIST Respiratory Rate 18 07/28/2020 1:18 PM CURATORIAL SPECIALIST Oxygen Saturation 95% 07/28/2020 1:18 PM CURATORIAL SPECIALIST Inhaled Oxygen Concentration - - Weight 112.5 kg (248 lb) 07/28/2020 1:18 PM CURATORIAL SPECIALIST Height 176.5 cm (5' 9.5) 07/28/2020 1:18 PM CURATORIAL SPECIALIST Body Mass Index 36.1 07/28/2020 1:18 PM CURATORIAL SPECIALIST Plan of Treatment Health Maintenance Due Date [...] complete this topic Insurance MEDICARE Care Teams Multicut Line Operator Relationship Specialty Start Date End Date Raciel Gorman MD PCP - General INTERNAL MEDICINE 07/28/20 Chencho Garcia MD Referring Physician OPHTHALMOLOGY 07/28/20 Shant Leon MD Referring Physician OPHTHALMOLOGY 07/28/20 Ubaldo Walters MD Consulting Physician INTERNAL MEDICINE 07/28/20
--- OUTSIDE RECORDS SUMMARY | 2025-06-29 20:24 | XMS_ITS | Clinical Summary ---
Author Organization [facility] Address [address] [place] [address] Care Team Providers Care Any Commodity Sales Deliverer Name Role Phone Jacinto Marion MD Primary Care Provider [phone] Source Comments [facility],non-owned Affiliates and Associated Physician Practices is amultiple site organization consisting of ambulatory clinics and hospital sitesin [place], [place] and [place]. This disclosure is being madepursuant to the Care Everywhere program and may not contain all information available regarding this patient. Last updated 18.[facility] Allergies No known active allergies Immunizations Immunization [...] DEPRESSION SCREENING 07/23/2024 COVID-19 VACCINE ( - 2024-2 6 season) 2025 INFLUENZA VACCINE (#1) 2025 05/10/2020 [...] age to complete this topic Insurance MEDICARE [facility] MEDICARE MEDICARE MEDICARE Member Subscriber Plan / Payer (Ef fective for All Dates) Name:Shant Kebede Member ID:[id number] Relation to Subscriber:Self Name:SHANT KEBEDE Subscriber ID:[id number] Payer ID:Not on file Group ID:Not on file Type:Medicare Address: [place] [id number] MEDICARE Member Subscriber Plan / Payer (Ef fective for All Dates) Name:Shant Kebdee Member ID:[id number] Relation to Subscriber:Self Name:SHANT KEBEDE Subscriber ID:[id number] Payer ID:Not on file Group ID:Not on file Type:Medicare Address: [place] [id number] MEDICARE MEDICARE [facility] MEDICARE AAR MEDICARE Member Subscriber Plan / Payer (Ef fective for All Dates) Name:KebedeShant aden Member ID:[id number] Relation to Subscriber:Self Name:Shant Kebede Subscriber ID:[id number] Payer ID:Not on file Group ID:Not on file Type:Medicare Address: [address] MEDICARE Member Subscriber Plan / Payer (Ef fective for All Dates) Name:Kebede, Shant Member ID:[id number] Relation to Subscriber:Self Name:KebedeShant aden Subscriber ID:[id number] Payer ID:Not on file Group ID:Not on file Type:Medicare Address: [address] Member Subscriber Plan / Payer (Ef fective for All Dates) Name:Shant Kebede Member ID:Not on file Relation to Subscriber:Self Name:Shant Kebede Subscriber ID:Not on file Payer ID:Not on file Group ID:Not on file Type:Commercial Address: [place] [phone] Member Subscriber Plan / Payer (Ef fective for All Dates) Name:Shant Kebede Member ID:[id number] Relation to Subscriber:Self Name:Delio Shant Subscriber ID:[id number] Payer ID:Not on file Group ID:Not on file Type:Medicare Address: [address] AARP Member Subscriber Plan / Payer (Ef fective for All Dates) Name:Shant Kebede Member ID:Not on file Relation to Subscriber:Self Name:Shant Kebede Subscriber ID:Not on file Payer ID:Not on file Group ID:Not on file Type:Commercial Address: [place] [phone] Care Teams Any Commodity Sales Deliverer Relationship Specialty Start Date End Date Jacinto Marion MD [address] [place] [address] PCP - General 10/19/22
--- OUTSIDE RECORDS SUMMARY | 2025-06-29 20:24 | XMS_ITS | Clinical Summary ---
Author Organization [facility] Address [address] [place] [address] Care Team Providers Care Supply Aide Name Role Phone Campbell Cho MD Primary [...] on file Legal Sex Male 12:40 PM DISTRICT SALES LEADER Gender Identity Not on file Sexual Orientation [...] Discontinued Insurance MEDICARE PART A AND B [facility] [id number] Care Teams Supply Aide Relationship Specialty Start Date End Date Campbell Cho MD [address] [place] [address] PCP - General Family Practice 09/07/21
--- OUTSIDE RECORDS SUMMARY | 2025-06-29 20:24 | XMS_ITS | Clinical Summary ---
Author Organization [facility] [address] Address [address] [place] [address] Care Team Providers Care Hopper Operator Name Role Phone Campbell Cho MD Primary Care Provider Social History Tobacco Use Types Packs/Day Years Used Date Smoking Tobacco: Never Assessed Personal Safety Answer Date Recorded Getting School Help Needed Not on file 09/21 Sex and Gender Information Value Date Recorded Sex Assigned at Not on file Legal Sex Male 3:32 AM FACILITY SPECIALIST Gender Identity Not on file Sexual Orientation Not on file Plan of Treatment Not on file Insurance [facility] MEDICARE Care Teams Hopper Operator Relationship Specialty Start Date End Date Campbell Cho MD PCP - General Family Practice 10/26/19
== END 2025-06-29 19:20 ==
LOC: ANHED 19:05
PROVIDERS: Emergency Provider Emergency Medicine; PCP Family Medicine
DX: T83.028A Displacement of other urinary catheter, initial encounter (principal); I12.9 Hypertensive chronic kidney disease with stage 1 through stage 4 chronic kidney disease, or unspecified chronic kidney disease; N18.31 Chronic kidney disease, stage 3a; Z87.440 Personal history of urinary (tract) infections; H54.62 Unqualified visual loss, left eye, normal vision right eye; Z87.442 Personal history of urinary calculi; Z86.711 Personal history of pulmonary embolism; K76.0 Fatty (change of) liver, not elsewhere classified; M19.90 Unspecified osteoarthritis, unspecified site; R31.9 Hematuria, unspecified; Y84.6 Urinary catheterization as the cause of abnormal reaction of the patient, or of later complication, without mention of misadventure at the time of the procedure
CPT/HCPCS: 51702; 81001; 87086; 99283

== ENCOUNTER 2025-07-09 09:13 | Inpatient (IN) | payer MEDICARE, SELFPAY ==
[2025-07-09] VITALS (7 sets, daily range): BP systolic 97–152; BP diastolic 60–99; PULSE 52–86; RESP 16–22; TEMP 36.4; O2SAT 93–97
--- NOTE | ~2025-07-09 | XR_ITS ---
EXAMINATION: XR chest 1V DATE: 07/09/2025 11:02 INDICATION: Altered mental status TECHNIQUE: A single frontal view of the chest was obtained. COMPARISON: May 25, 2025 FINDINGS: Heart shadow borderline. No armani pulmonary edema or large effusion. No pneumothorax or subphrenic free air seen. IMPRESSION: 1. Borderline enlarged heart shadow. No armani pulmonary edema or large effusion. Reviewed, dictated and finalized at location A. OMER RELATIONS SPECIALIST IMPRESSION: 1. Borderline enlarged heart shadow. No armani pulmonary edema or large effusion .
--- NOTE | ~2025-07-09 | CT_ITS ---
EXAMINATION: CT brain wo con DATE: 07/09/2025 10:57 INDICATION: Altered mental status TECHNIQUE: Computed tomography (CT) of the head was performed without intravenous contrast. The dose-length product was 605.33 mGy-cm. COMPARISON: May 26, 2025 FINDINGS: No gross interval change from the previous exam. No intracranial mass effect acute hemorrhage or large acute ischemic event. Chronic microvascular ischemic appearing white matter changes and ventriculomegaly not clearly changed given variation in patient positioning and technique. Calvarial structures appear stable. IMPRESSION: 1. No gross intracranial mass effect or hemorrhage. 2. Ventriculomegaly; query if patient has presentation suggestive of NPH. 3. Chronic white vessel ischemic white matter changes. Reviewed, dictated and finalized at location A. CAR WHACKER
--- NOTE | 2025-07-09 09:27 | ECG_ITS ---
Test Date: 2025-07-09 09:32:49 Measurements Intervals Watson Rate: 76 P: 2 AK: 193 QRS: 5 QRSD: 157 T: -10 QT: 431 QTc: 487 Interpretive Statements SINUS RHYTHM WITH SINUS ARRHYTHMIA RIGHT BUNDLE BRANCH BLOCK CONSIDER INFERIOR INFARCT, AGE INDETERMINATE BASELINE ARTIFACT- I, III ABNORMAL ECG Compared to ECG 05/25/2025 14:15:52 Ventricular premature complex(es) no longer present Electronically Signed On 07-09-2025 11:27:02 MILLER SUPERVISOR by Francisco Pérez D.O.
--- OUTSIDE RECORDS SUMMARY | 2025-07-09 10:24 | XMS_ITS | Clinical Summary ---
Author Organization [facility] [address] Address [address] [place] [address] Care Team Providers Care Caregivers Non Medical Name Role Phone Campbell Cho MD Primary Care Provider Social History Tobacco Use Types Packs/Day Years Used Date Smoking Tobacco: Never Assessed Personal Safety Answer Date Recorded Getting School Help Needed Not on file 09/21 Sex and Gender Information Value Date Recorded Sex Assigned at Not on file Legal Sex Male 3:32 AM FIBRE CEMENT MOULDER Gender Identity Not on file Sexual Orientation Not on file Plan of Treatment Not on file Insurance [facility] MEDICARE Care Teams Caregivers Non Medical Relationship Specialty Start Date End Date Campbell Cho MD PCP - General Family Practice 10/26/19
--- OUTSIDE RECORDS SUMMARY | 2025-07-09 10:24 | XMS_ITS | Clinical Summary ---
Author Organization [facility] Address [address] [place] [address] Care Team Providers Care Emergency Management Specialist Name Role Phone Campbell Cho MD Primary [...] on file Legal Sex Male 12:40 PM FOOD OR BAGGAGE HANDLING RAMPMAN Gender Identity Not on file Sexual Orientation [...] Discontinued Insurance MEDICARE PART A AND B [facility] [id number] Care Teams Emergency Management Specialist Relationship Specialty Start Date End Date Campbell Cho MD [address] [place] [address] PCP - General Family Practice 09/07/21
--- OUTSIDE RECORDS SUMMARY | 2025-07-09 10:24 | XMS_ITS | Clinical Summary ---
Author Organization [facility] Address [address] [place] [address] Care Team Providers Care Associate Scientist Name Role Phone Jacinto Marion MD Primary Care Provider [phone] Source Comments [facility],non-owned Affiliates and Associated Physician Practices is amultiple site organization consisting of ambulatory clinics and hospital sitesin [place], [place], [place] and [place]. This disclosure is being madepursuant to the Care Everywhere program and may not contain all information available regarding this patient. Last updated 18.[facility] Allergies No known active allergies Immunizations Immunization [...] age to complete this topic Insurance MEDICARE [facility] MEDICARE MEDICARE MEDICARE Member Subscriber Plan / Payer (Ef fective for All Dates) Name:Shant Kebede Member ID:[id number] Relation to Subscriber:Self Name:SHANT KEBEDE Subscriber ID:[id number] Payer ID:Not on file Group ID:Not on file Type:Medicare Address: [place] [id number] MEDICARE Member Subscriber Plan / Payer (Ef fective for All Dates) Name:Shant Kebede Member ID:[id number] Relation to Subscriber:Self Name:SHANT KEBEDE Subscriber ID:[id number] Payer ID:Not on file Group ID:Not on file Type:Medicare Address: [place] [phone] MEDICARE MEDICARE [facility] MEDICARE AAR MEDICARE Member Subscriber Plan / Payer (Ef fective for All Dates) Name:KebedeShant aden Member ID:[id number] Relation to Subscriber:Self Name:Shant Kebede Subscriber ID:[id number] Payer ID:Not on file Group ID:Not on file Type:Medicare Address: [address] MEDICARE Member Subscriber Plan / Payer (Ef fective for All Dates) Name:Kebede, Shant Member ID:[id number] Relation to Subscriber:Self Name:KebedeShant aden Subscriber ID:[id number] Payer ID:Not on file Group ID:Not on file Type:Medicare Address: [address] Member Subscriber Plan / Payer (Ef fective for All Dates) Name:Shant Kebede Member ID:Not on file Relation to Subscriber:Self Name:Shant Kebede Subscriber ID:Not on file Payer ID:Not on file Group ID:Not on file Type:Commercial Address: [place] [phone] Member Subscriber Plan / Payer (Ef fective for All Dates) Name:Shant Kebede Member ID:[id number] Relation to Subscriber:Self Name:Delio Shant Subscriber ID:[id number] Payer ID:Not on file Group ID:Not on file Type:Medicare Address: [address] AARP Member Subscriber Plan / Payer (Ef fective for All Dates) Name:Shant Kebede Member ID:Not on file Relation to Subscriber:Self Name:Shant Kebede Subscriber ID:Not on file Payer ID:Not on file Group ID:Not on file Type:Commercial Address: [place] [phone] Care Teams Associate Scientist Relationship Specialty Start Date End Date Jacinto Marion MD [address] [place] [address] PCP - General 10/19/22
--- NOTE | 2025-07-09 10:25 | ED_ITS ---
HPI - Altered Mental Status General Chief Complaint: Altered Mental Status <Lisa Lovett PA-C - Last Filed: 07/09/25 15:48> Stated Complaint: ams <Lisa Lovett PA-C - Last Filed: 07/09/25 15:48> Time Seen by Provider: 07/09/25 09:22 <Lisa Lovett PA-C - Last Filed: 07/09/25 15:48> Source: patient and EMS <Lisa Lovett PA-C - Last Filed: 07/09/25 15:48> Mode of arrival: EMS <EPIFANIO Duran Last Filed: 07/09/25 15:48> Limitations: altered mental status <EPIFANIO Duran Last Filed: 07/09/25 15:48> History of Present Illness HPI narrative: This is a 79 year old male that presents to the ER for confusion. Ongoing over the last week. Recently had his [place] catheter replaced. Patient reports some diarrhea. Denies any pain currently. 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 Transient ischemic attack (~2014) Paroxysmal atrial fibrillation (~10/2019) associated with sepsis Retinal vein occlusion of left eye Pre-diabetes Hemoglobin A1c was 6.3% in April 2019. Overactive bladder Essential hypertension Khoury palsy (~2018) Vitamin D deficiency Rheumatoid arthritis with rheumatoid factor of multiple sites without organ or systems involvement Glaucoma Osteoarthritis Hypogonadism in male Uses testosterone gel. 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 History of lithotripsy (~08/2022) Cystoscopy, left retrograde pyelography, left ureteroscopy with laser lithotripsy and stone extraction, left ureteral stent replacement History of lithotripsy (~02/2023) Cystoscopy, left ureteroscopy with laser lithotripsy, stone extraction stent placement History of ureter stent (~03/2023) Cystoscopy, left ureteroscopy with stone extraction and left ureteral stent placement History of glaucoma tube shunt procedure (~06/2023) Left H/O colonoscopy with polypectomy History of ureter stent (~10/2022) cystoscopy, left retrograde pyelogram and placement of left 6fr variable length stent Hx of lithotripsy (~04/2022) Left ESWL History of cystoscopy (~05/2022) cystoscopy, left retrograde pyelography and left ureteral stent placement History of left cataract surgery (~2009) History of appendectomy (~1957) <EPIFANIO Duran Last Filed: 07/09/25 15:48> Family History Family History: Family History Father Diabetes mellitus Acute myocardial infarction Heart disease Hypertension Mother Cerebrovascular accident <EPIFANIO Duran Last Filed: 07/09/25 15:48> Social History Social History: Social History Social History: The patient lives in [place] with his . They have 3 sons and 1 daughter. He smoked up to 3 packs of cigarettes per day and quit 1995. No alcohol or drug abuse. 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 [employer] Code status: Full code Surrogate decision maker: Dariusz () Smoking packs per day: 3 Smoking cigarettes per day: 60.0 Years smoked: 34 Smoking pack-years: 102.00 Smoking status: Former smoker Second hand tobacco smoke exposure: No Additional smoking assessment comments: pt states he started smoking at age 20 Alcohol intake: never Substance use: never Substance use type: does not use Current Housing: Decline to Answer Concerned About Future Housing: Decline to Answer Difficulty Paying Gas/Electric Bills: Decline to Answer Difficulty Paying for Meds: Decline to Answer Currently Unemployed: Decline to Answer Education: Decline to Answer Difficulty w/ Childcare or Family Care: Decline to Answer Living arrangements: with family Additional living arrangements comments: - [facility] Gender identity (if verbalized by the patient): Male Sexual Orientation (if Verbalized by the Patient): Straight or Heterosexual Spiritual care concerns: No Agree to blood products: Yes <Lisa Lovett PA-C - Last Filed: 07/09/25 15:48> Exam 2 Narrative: GENERAL: Elderly, well-nourished, and in no acute distress. HEAD: Normocephalic, atraumatic. EYES: PERRLA and EOMI. ENT: Nares clear, no rhinorrhea or epistaxis. Mucous membranes moist. Oropharynx without tonsillar hypertrophy exudate or other lesions. NECK: Supple. No adenopathy or masses. CHEST: Clear to auscultation. No respiratory distress. No wheezes rales or rhonchi HEART: Regular rate and rhythm. No murmur heard. Normal peripheral pulses. ABDOMEN: Soft, nontender, nondistended, normal active bowel sounds. EXTREMITIES: Normal range of motion. No edema. SKIN: Warm, dry, no rash. NEURO: No focal deficits. Alert and oriented x1-2. PSYCH: Normal mood and affect <Lisa Lovett PA-C - Last Filed: 07/09/25 15:48> Course DIRECTOR OF ENGINEERING/PA Physician Supervision This visit was performed by both a physician and an APC; I performed all aspects of the medical decision making component of this evaluation as documented. <Lisa Monzon MD - Last Filed: 07/09/25 17:48> Vital Signs Vital signs: Vital Signs Temperature 97.6 F 07/09/25 09:20 Pulse Rate 78 07/09/25 09:20 Respiratory Rate 20 07/09/25 09:20 Blood Pressure 137/73 07/09/25 09:20 Pulse Oximetry 95 07/09/25 09:20 Oxygen Delivery Room Air 07/09/25 09:20 Temperature 97.6 F 07/09/25 09:20 Pulse Rate 86 07/09/25 16:16 Respiratory Rate 22 H 07/09/25 16:16 Blood Pressure 115/82 07/09/25 16:16 Pulse Oximetry 96 07/09/25 16:16 Oxygen Delivery Room Air 07/09/25 09:20 <Lisa Lovett PA-C - Last Filed: 07/09/25 15:48> Vital Signs Temperature 97.6 F 07/09/25 09:20 Pulse Rate 78 07/09/25 09:20 Respiratory Rate 20 07/09/25 09:20 Blood Pressure 137/73 07/09/25 09:20 Pulse Oximetry 95 07/09/25 09:20 Oxygen Delivery Room Air 07/09/25 09:20 Temperature 97.6 F 07/09/25 09:20 Pulse Rate 86 07/09/25 16:16 Respiratory Rate 22 H 07/09/25 16:16 Blood Pressure 115/82 07/09/25 16:16 Pulse Oximetry 96 07/09/25 16:16 Oxygen Delivery Room Air 07/09/25 09:20 <Lisa Monzon MD - Last Filed: 07/09/25 17:48> MDM MDM Narrative Medical decision making narrative: Patient presents to the emergency department for reported confusion. Patient is afebrile and nontoxic appearing. His vitals are stable. CBC with leukocytosis to 18.9. Metabolic panel with evidence of acute kidney injury. Patient hydrated in the ER with IV fluids. Urine with evidence of infection. This was sent for culture. Blood cultures obtained, patient started on IV antibiotics. CT brain without acute findings. Chest x-ray showing borderline heart size. Patient and family updated on workup and recommendation for admission. Spoke with hospitalist who accepts admission <Lisa Lovett PA-C - Last Filed: 07/09/25 15:48> Differential Diagnosis Differential Diagnosis: STEVENSON, dehydration, UTI, electrolyte derangement <Lisa Lovett PA-C - Last Filed: 07/09/25 15:48> Medical Records I have reviewed the following patient records and this information was taken into consideration when formulating the assessment and plan.: previous labs, previous ER visits and previous hospitalizations <Lisa Lovett PA-C - Last Filed: 07/09/25 15:48> Lab Data MDM Lab Attestation statement: I personally reviewed the patient's lab results. <Lisa Lovett PA-C - Last Filed: 07/09/25 15:48> Result diagrams: 07/09/25 10:30 07/09/25 10:30 <Lisa Lovett PA-C - Last Filed: 07/09/25 15:48> Labs: Lab Results 07/09/25 07/09/25 07/09/25 Range/Units 10:30 12:09 13:03 WBC 18.9 H (4.5-10.0) K/mm3 RBC 4.23 L (4.6-6.20) M/mm3 Hgb 14.4 (14.0-18.0) g/dL Hct 43.4 (42.0-52.0) % MCV 102.6 H (80-100) fl MCH 34.0 (26-34) pg MCHC 33.2 (32-36) g/dl RDW 13.7 (11.5-14.5) % Plt Count 353 (150-375) k/mm3 MPV 8.6 (7.4-10.4) fl Immature Gran % (Auto) 0.5 (0-0.5) % Neut % (Auto) 87.2 H (45.5-73.1) % Lymph % (Auto) 3.2 L (18.3-44.2) % [place] % (Auto) 8.1 (2.6-8.5) % Eos % (Auto) 0.6 (0-4.4) % Baso % (Auto) 0.4 (0.2-1.2) % Lymph # (Auto) 0.60 L (0.9-3.2) K/mm3 [place] # (Auto) 1.5 H (0.1-0.6) K/mm3 Eos # (Auto) 0.1 (0-0.3) K/mm3 Baso # (Auto) 0.1 (0.0-0.1) K/mm3 Abs Immat Gran (auto) 0.09 H (0.00-0.031) K/mm3 Absolute Neuts (auto) 16.5 H (1.3-6.7) K/mm3 Absolute Nucleated RBC 0.000 (0.0-0.012) K/mm3 Nucleated RBC % 0.0 (0.0-0.2) % PT 16.2 H (11.1-14.7) Seconds INR 1.3 APTT 27.3 (22.3-36.8) Seconds Sodium 140 (137-145) mmol/L Potassium 5.1 H (3.4-5.0) mmol/L Chloride 105 (98-107) mmol/L Carbon Dioxide 25 (22-30) mmol/L Anion Gap 10 (4-12) mmol/L BUN 46 H D (9-20) mg/dL Creatinine 2.16 H (0.7-1.3) mg/dL Estim Creat Clear Calc Not Reportable Estimated GFR 30 L (59 - ) Glucose 165 H (65-110) mg/dL Calcium 9.6 (8.4-10.2) mg/dL Total Bilirubin 1.2 (0.2-1.3) mg/dL AST 39 (17-59) U/L ALT 28 (6-50) U/L Alkaline Phosphatase 96 (38-126) U/L Total Protein 8.5 H (6.3-8.2) g/dL Albumin 4.3 (3.5-5.1) g/dL Urine Color Yellow (Yellow) Urine Appearance Turbid H (Clear) Urine pH 5.0 (5.0-9.0) Ur Specific [place] 1.020 (1.001-1.035) Urine Protein 3+ H (Negative) mg/dL Urine Glucose (UA) Negative (Negative) mg/dL Urine Ketones Trace H (Negative) mg/dL Ur Blood (Man) 3+ H (Negative) Urine Nitrate Negative (Negative) Urine Bilirubin Negative (Negative) Urine Urobilinogen 0.2 (<2.0) mg/dL Add Ur Microanalysis Reviewed Leukocyte Esterase Rfl 3+ H (Negative) ARASH/UL Urine RBC 21-50 H (0-2) /hpf Urine WBC >100 H (0-3) /hpf Ur Squamous Epith Cells None seen (Few) /hpf Urine Bacteria 4+ H /hpf Urine Casts 3-5 Influenza A (RT-PCR) Negative (Negative) Influenza B (RT-PCR) Negative (Negative) SARS-CoV-2 RNA (RT-PCR) Negative (Negative) <Lisa Lovett PA-C - Last Filed: 07/09/25 15:48> Lab Results 07/09/25 07/09/25 07/09/25 Range/Units 10:30 12:09 13:03 WBC 18.9 H (4.5-10.0) K/mm3 RBC 4.23 L (4.6-6.20) M/mm3 Hgb 14.4 (14.0-18.0) g/dL Hct 43.4 (42.0-52.0) % MCV 102.6 H (80-100) fl MCH 34.0 (26-34) pg MCHC 33.2 (32-36) g/dl RDW 13.7 (11.5-14.5) % Plt Count 353 (150-375) k/mm3 MPV 8.6 (7.4-10.4) fl Immature Gran % (Auto) 0.5 (0-0.5) % Neut % (Auto) 87.2 H (45.5-73.1) % Lymph % (Auto) 3.2 L (18.3-44.2) % [place] % (Auto) 8.1 (2.6-8.5) % Eos % (Auto) 0.6 (0-4.4) % Baso % (Auto) 0.4 (0.2-1.2) % Lymph # (Auto) 0.60 L (0.9-3.2) K/mm3 [place] # (Auto) 1.5 H (0.1-0.6) K/mm3 Eos # (Auto) 0.1 (0-0.3) K/mm3 Baso # (Auto) 0.1 (0.0-0.1) K/mm3 Abs Immat Gran (auto) 0.09 H (0.00-0.031) K/mm3 Absolute Neuts (auto) 16.5 H (1.3-6.7) K/mm3 Absolute Nucleated RBC 0.000 (0.0-0.012) K/mm3 Nucleated RBC % 0.0 (0.0-0.2) % PT 16.2 H (11.1-14.7) Seconds INR 1.3 APTT 27.3 (22.3-36.8) Seconds Sodium 140 (137-145) mmol/L Potassium 5.1 H (3.4-5.0) mmol/L Chloride 105 (98-107) mmol/L Carbon Dioxide 25 (22-30) mmol/L Anion Gap 10 (4-12) mmol/L BUN 46 H D (9-20) mg/dL Creatinine 2.16 H (0.7-1.3) mg/dL Estim Creat Clear Calc Not Reportable Estimated GFR 30 L (59 - ) Glucose 165 H (65-110) mg/dL Calcium 9.6 (8.4-10.2) mg/dL Total Bilirubin 1.2 (0.2-1.3) mg/dL AST 39 (17-59) U/L ALT 28 (6-50) U/L Alkaline Phosphatase 96 (38-126) U/L Total Protein 8.5 H (6.3-8.2) g/dL Albumin 4.3 (3.5-5.1) g/dL Urine Color Yellow (Yellow) Urine Appearance Turbid H (Clear) Urine pH 5.0 (5.0-9.0) Ur Specific [place] 1.020 (1.001-1.035) Urine Protein 3+ H (Negative) mg/dL Urine Glucose (UA) Negative (Negative) mg/dL Urine Ketones Trace H (Negative) mg/dL Ur Blood (Man) 3+ H (Negative) Urine Nitrate Negative (Negative) Urine Bilirubin Negative (Negative) Urine Urobilinogen 0.2 (<2.0) mg/dL Add Ur Microanalysis Reviewed Leukocyte Esterase Rfl 3+ H (Negative) ARASH/UL Urine RBC 21-50 H (0-2) /hpf Urine WBC >100 H (0-3) /hpf Ur Squamous Epith Cells None seen (Few) /hpf Urine Bacteria 4+ H /hpf Urine Casts 3-5 Influenza A (RT-PCR) Negative (Negative) Influenza B (RT-PCR) Negative (Negative) SARS-CoV-2 RNA (RT-PCR) Negative (Negative) <Lisa Monzon MD - Last Filed: 07/09/25 17:48> Imaging Data Radiologist's impression: ITS Impressions Chest X-Ray 07/09/25 11:04 IMPRESSION: 1. Borderline enlarged heart shadow. No armani pulmonary edema or large effusion. Head CT 07/09/25 11:08 IMPRESSION: 1. No gross intracranial mass effect or hemorrhage. 2. Ventriculomegaly; query if patient has presentation suggestive of NPH. 3. Chronic white vessel ischemic white matter changes. <Lisa Lovett PA-C - Last Filed: 07/09/25 15:48> ITS Impressions Chest X-Ray 07/09/25 11:04 IMPRESSION: 1. Borderline enlarged heart shadow. No armani pulmonary edema or large effusion. Head CT 07/09/25 11:08 IMPRESSION: 1. No gross intracranial mass effect or hemorrhage. 2. Ventriculomegaly; query if patient has presentation suggestive of NPH. 3. Chronic white vessel ischemic white matter changes. <Lisa Monzon MD - Last Filed: 07/09/25 17:48> Critical Care Time Critical Care Time Critical Care Time: Yes <Lisa Lovett PA-C - Last Filed: 07/09/25 15:48> Time Type: Intermittent <Lisa Lovett PA-C - Last Filed: 07/09/25 15:48> Initial evaluation, discuss w/ involved parties, attempting to gather old records: 10 minutes <Lisa Lovett PA-C - Last Filed: 07/09/25 15:48> Documenting medical record: 10 minutes <Lisa Lovett PA-C - Last Filed: 07/09/25 15:48> Review of results (EKG's, labs, imaging): 10 minutes <Lisa Lovett PA-C - Last Filed: 07/09/25 15:48> Serial repeat bedside evaluation: 10 minutes <Lisa Lovett PA-C - Last Filed: 07/09/25 15:48> Discussing case with multiple memebers of the care team and consultants: 5 minutes <Lisa Lovett PA-C - Last Filed: 07/09/25 15:48> Total Critical Care Time: 45 <Lisa Lovett PA-C - Last Filed: 07/09/25 15:48> 45 <Lisa Monzon MD - Last Filed: 07/09/25 17:48> Discharge Plan Discharge Clinical Impression: STEVENSON (acute kidney injury), Acute UTI, Acute metabolic encephalopathy <Lisa Lovett PA-C - Last Filed: 07/09/25 15:48> Patient Disposition: Still a Patient <Lisa Lovett PA-C - Last Filed: 07/09/25 15:48> Condition: Stable <Lisa Lovett PA-C - Last Filed: 07/09/25 15:48>
[2025-07-09 10:47] LABS: Hematocrit 43.4 % (42.0-52.0); Hemoglobin 14.4 g/dL (14.0-18.0); Immature Granulocyte Percent A 0.5 % (0-0.5); Lymphocytes Absolute Auto 0.60 K/mm3 (0.9-3.2); Mean Corpuscular HGB Conc 33.2 g/dl (32-36); Mean Corpuscular Hemoglobin 34.0 pg (26-34); Mean Corpuscular Volume 102.6 fl (80-100); Nucleated Red Blood Cells Absolute Auto 0.000 K/mm3 (0.0-0.012); Nucleated Red Blood Cells Perc 0.0 % (0.0-0.2); Platelet Count Result 353 k/mm3 (150-375); Red Blood Count 4.23 M/mm3 (4.6-6.20); White Blood Count 18.9 K/mm3 (4.5-10.0)
[2025-07-09 10:58] LABS: INR 1.3; Prothrombin Time 16.2 Seconds (11.1-14.7)
[2025-07-09 10:59] LABS: Partial Thromboplastin Time 27.3 Seconds (22.3-36.8)
[2025-07-09 11:11] LABS: Alanine Aminotransferase 28 U/L (6-50); Albumin Level 4.3 g/dL (3.5-5.1); Alkaline Phosphatase 96 U/L (38-126); Anion Gap 10 mmol/L (4-12); Aspartate Amino Transferase 39 U/L (17-59); Bilirubin,Total 1.2 mg/dL (0.2-1.3); Blood Urea Nitrogen 46 mg/dL (9-20); Calcium 9.6 mg/dL (8.4-10.2); Carbon Dioxide 25 mmol/L (22-30); Chloride 105 mmol/L (98-107); Estimated Glomerular Filt Rate 30; Glucose 165 mg/dL (65-110); Potassium 5.1 mmol/L (3.4-5.0); Sodium 140 mmol/L (137-145); Total Protein 8.5 g/dL (6.3-8.2)
[2025-07-09 12:56] LABS: Influenza A QL RT-PCR Negative (Negative); Influenza B QL RT-PCR Negative (Negative); SARS-CoV-2 RNA PCR Negative (Negative)
[2025-07-09 13:21] LABS: Add Urine Microscopic? YES; Appearance Urine Turbid (Clear); Glucose Urine UA Negative (Negative); Leukocyte Esterase Ur 3+ LEU/UL (Negative); Need Manual Microscopic Reviewed; Nitrate Urine Negative (Negative); Specific Grav Ur 1.020 (1.001-1.035)
[2025-07-09] MEDS: SODIUM CHLORIDE 0.9% IV 500 ML 999 ML IV CONT (13:56)
[2025-07-09] MEDS: cefTRIAXone 1 GM in SODIUM CHLORIDE 0.9% IV 50 ML 100 ML IVPB (13:56)
[2025-07-09] MEDS: LIDOCAINE 2% GEL UROJET 10 ML PKG (14:12)
[2025-07-09] MEDS: SODIUM CHLORIDE 0.9% IV 1,000 ML 75 ML IV CONT (16:23)
--- NOTE | 2025-07-09 16:24 | WPCEDHO ---
ED Hand Off Checklist All vitals saved:yes IV Site documented:yes All med administrations documented:yes Triage Note Triage Note Pt to ED via EMS c/o diarrhea, 07/09/25 09:20 increased weakness and confusion for the past few days. Reports has been going since having his fleming catheter removed 1-2 weeks ago after pulling it out. Pt has fleming in place, appears cloudy. Pt a&ox2, which ems reports is not his baseline. Pt denies pain. Allergies No Known Drug Allergies Allergy (Mild, Verified 06/09/25 13:19) unknown Family History (Last Reviewed 06/09/25 @ 16:12 by Daphne Figueroa, INFANT LEAD TEACHER) Father Diabetes mellitus Acute myocardial infarction Heart disease Hypertension Mother Cerebrovascular accident Active Medications including assessments/comments Sodium Chloride (Normal Saline Iv) 1,000 mls @ 75 mls/hr IV CONT .[id number] [facility] Stop: 07/10/25 05:04 Last Admin: 07/09/25 16:23 Dose: 75 mls/hr Documented By: MEET Infusion/Titration Document 07/09/25 16:23 [facility] (Rec: 07/09/25 16:23 [facility] [id number]) Intake IV Site Peripheral Access Left Antecubital Container Volume 1,000 Waste Amount 0 Dosing Infusion Rate 75 Cumulative Dose Not Applicable Increase/Decrease Started Elapsed Time Elapsed Time ( 0m minutes) Administered/Completed Medications Discontinued Medications Ceftriaxone Sodium 1 gm/ (Sodium Chloride) 50 mls @ 100 mls/hr IVPB ONCE STA Stop: 07/09/25 13:56 Last Infusion: 07/09/25 15:03 Dose: Infused Documented By: Admin: 07/09/25 13:56 Dose: 100 mls/hr Documented By: ALEXUS Sodium Chloride (Normal Saline Iv) 500 mls @ 999 mls/hr IV CONT .Q31M STA Stop: 07/09/25 13:58 Last Infusion: 07/09/25 15:03 Dose: Infused Documented By: Admin: 07/09/25 13:56 Dose: 999 mls/hr Documented By: ALEXUS Lidocaine HCl (Lidocaine 2% Gel Urojet 10 Ml Pkg) Confirm Administered Dose 10 ml .ROUTE .STK-MED ONE Stop: 07/09/25 12:48 Last Admin: 07/09/25 14:12 Dose: 10 ml Documented By: HCC Interventions/Assessments IV / Saline Lock, Insert Start: 07/09/25 09:07 Freq: Status: Active Protocol: Document 07/09/25 09:27 MLI (Rec: 07/09/25 09:27 MLI [id number]) IV Assessment Peripheral Access Left Antecubital IV Catheter Access Initiated Before Arrival IV Insertion Date 07/09/25 Catheter Gauge 18 IV Site Assessment WNL IV Care and WNL Maintenance PA: Cardiovascular Assessment Start: 07/09/25 09:07 Freq: Status: Active Protocol: Document 07/09/25 09:28 MLI (Rec: 07/09/25 09:29 MLI [id number]) Cardiovascular Assessment Cardiovascular None Symptoms Skin Description Normal Color Heart Sounds Normal Jugular Vein None Distention PA: Neurological Assessment Start: 07/09/25 09:07 Freq: Status: Active Protocol: Document 07/09/25 09:28 MLI (Rec: 07/09/25 09:29 MLI [id number]) Neurological Assessment Level of Awake Consciousness Arousable to Verbal Orientation Oriented to Person,Oriented to Place,Disoriented to Time Neurological Confusion,Weakness, General Symptoms Behavior Cooperative Patient Able to Comprehend Comprehension Memory Description Short Term Impaired [place] Coma Scale Eyes Open Verbal Disoriented Motor Follows Commands [place] Coma Total 14 Score PA: Respiratory Assessment Start: 07/09/25 09:07 Freq: Status: Active Protocol: Document 07/09/25 09:28 MLI (Rec: 07/09/25 09:29 MLI [id number]) Respiratory Assessment Symptoms None Effort Normal Pattern Regular Depth Normal Chest Expansion Symmetrical Adult Capillary Normal/Less than 2 Seconds Refill Last Vital Signs Temperature 97.6 F 07/09/25 09:20 Pulse Rate 86 07/09/25 16:16 Respiratory Rate 22 H 07/09/25 16:16 Pulse Oximetry 96 07/09/25 16:16 Blood Pressure 115/82 07/09/25 16:16 Blood Pressure Mean 93 07/09/25 16:16 Oxygen Delivery Room Air 07/09/25 09:20 Weight 104 kg 07/09/25 09:20 Last Result - Abnormals Only WBC 18.9 K/mm3 (4.5-10.0) H 07/09/25 10:30 RBC 4.23 M/mm3 (4.6-6.20) L 07/09/25 10:30 MCV 102.6 fl (80-100) H 07/09/25 10:30 Neut % (Auto) 87.2 % (45.5-73.1) H 07/09/25 10:30 Lymph % (Auto) 3.2 % (18.3-44.2) L 07/09/25 10:30 Lymph # (Auto) 0.60 K/mm3 (0.9-3.2) L 07/09/25 10:30 [place] # (Auto) 1.5 K/mm3 (0.1-0.6) H 07/09/25 10:30 Abs Immat Gran (auto) 0.09 K/mm3 (0.00-0.031) H 07/09/25 10:30 Absolute Neuts (auto) 16.5 K/mm3 (1.3-6.7) H 07/09/25 10:30 PT 16.2 Seconds (11.1-14.7) H 07/09/25 10:30 Potassium 5.1 mmol/L (3.4-5.0) H 07/09/25 10:30 BUN 46 mg/dL (9-20) H D 07/09/25 10:30 Creatinine 2.16 mg/dL (0.7-1.3) H 07/09/25 10:30 Estimated GFR 30 (59-) L 07/09/25 10:30 Glucose 165 mg/dL (65-110) H 07/09/25 10:30 Total Protein 8.5 g/dL (6.3-8.2) H 07/09/25 10:30 Urine Appearance Turbid (Clear) H 07/09/25 13:03 Urine Protein 3+ mg/dL (Negative) H 07/09/25 13:03 Urine Ketones Trace mg/dL (Negative) H 07/09/25 13:03 Ur Blood (Man) 3+ (Negative) H 07/09/25 13:03 Leukocyte Esterase Rfl 3+ ARASH/UL (Negative) H 07/09/25 13:03 Urine RBC 21-50 /hpf (0-2) H 07/09/25 13:03 Urine WBC >100 /hpf (0-3) H 07/09/25 13:03 Urine Bacteria 4+ /hpf H 07/09/25 13:03
--- NOTE | 2025-07-09 17:00 | ADMGEN ---
This patient, Shant Zaman, was admitted to Medical Room 345-. Patient/family oriented to hospital policies and general routines including ID bracelet, bed and alarms, visiting hours, pain management, procedures, bathroom and other care routines, personal items, smoking policy, room service/diet, and visiting hours. Information on how to activate the Rapid Response Team has been discussed. Patient/Family are encouraged to report perceived risks to care and to ask questions if they do not understand what they are told or what they should do.
--- NOTE | 2025-07-10 00:30 | P.HP_ITS ---
H&P: HPI History of Present Illness Date/Time: 07/10/25 00:30 Chief Complaint: Confusion Narrative: This is an 79-year-old male patient who has a history of chronic kidney disease, hypertension, and UTIs. The patient recently had a [place] catheter placed. This has been ongoing for the last week. His white count is noted to be 18.9. Potassium was found to be 5.1. BUN 46 and creatinine 2.16. GFR is 30. Glucose is 165. His urinalysis was read as turbid urine, urine protein 3+, trace ketones, urine blood 3+, leukocyte esterase 3+, rbc's 21-50, urine wbc's greater than 100, and urine bacteria 4+. Influenza a, influenza B and COVID were negative. The patient was given ceftriaxone and normal saline in the emergency room. Head CT was read as no gross intracranial mass affect or hemorrhage. Chest x-ray was read as borderline enlarged heart shadow. No armani pulmonary edema or large effusion. The patient is being admitted to observation status on the date of service of 07/10/2025. Review of Systems Review of Systems: The patient is a poor historian. Constitutional: Constitutional: Reports as per HPI and Reports no additional constitutional complaints Eyes: Eyes: Reports as per HPI and Reports no additional eye complaints ENT: Reports system reviewed and no additional complaints, except as documented and Reports Normal hearing present Cardiovascular: Cardiovascular: Reports no additional cardiovascular complaints Respiratory: Respiratory: Reports as per HPI and Reports no additional respiratory complaints Gastrointestinal: Gastrointestinal: Reports as per HPI and Reports no ad ditional gastrointestinal complaints Musculoskeletal: Musculoskeletal: Reports no additional musculoskeletal complaints Integumentary/Breasts: Skin/Breast: Reports system reviewed and no additional complaints, except as docu Neurologic: Reports system reviewed and no additional complaints, except as documented and Reports Normal hearing present Psychiatric: Psychiatric: Reports no additional psychiatric complaints and Reports as per HPI Hematologic/Lymphatic: Hematologic/Lymphatic: Reports no additional hematologic/lymphatic complaints Allergic/Immunologic: Allergic/Immunologic: Reports no additional allergic/immunologic complaints [facility] Past Medical History Medical History (Updated 07/10/25 @ 03:57 by Daphne Padilla APRN) Glaucoma BPH (benign prostatic hyperplasia) Acute UTI Recurrent UTI 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 Transient ischemic attack (~2014) Paroxysmal atrial fibrillation (~10/2019) associated with sepsis Retinal vein occlusion of left eye Pre-diabetes Hemoglobin A1c was 6.3% in April 2019. Overactive bladder Essential hypertension Khoury palsy (~2018) Vitamin D deficiency Rheumatoid arthritis with rheumatoid factor of multiple sites without organ or systems involvement Glaucoma Osteoarthritis Hypogonadism in male Uses testosterone gel. 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 History of lithotripsy (~08/2022) Cystoscopy, left retrograde pyelography, left ureteroscopy with laser lithotripsy and stone extraction, left ureteral stent replacement History of lithotripsy (~02/2023) Cystoscopy, left ureteroscopy with laser lithotripsy, stone extraction stent placement History of ureter stent (~03/2023) Cystoscopy, left ureteroscopy with stone extraction and left ureteral stent placement History of glaucoma tube shunt procedure (~06/2023) Left H/O colonoscopy with polypectomy History of ureter stent (~10/2022) cystoscopy, left retrograde pyelogram and placement of left 6fr variable length stent Hx of lithotripsy (~04/2022) Left ESWL History of cystoscopy (~05/2022) cystoscopy, left retrograde pyelography and left ureteral stent placement History of left cataract surgery (~2009) History of appendectomy (~1957) Family History Family History Father Diabetes mellitus Acute myocardial infarction Heart disease Hypertension Mother Cerebrovascular accident Social History Social History Social History: The patient lives in [place] with his . They have 3 sons and 1 daughter. He smoked up to 3 packs of cigarettes per day and quit 1995. No alcohol or drug abuse. 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 [employer] Code status: Full code Surrogate decision maker: Dariusz () Smoking packs per day: 3 Smoking cigarettes per day: 60.0 Years smoked: 34 Smoking pack-years: 102.00 Smoking status: Former smoker Second hand tobacco smoke exposure: No Additional smoking assessment comments: pt states he started smoking at age 20 Alcohol intake: never Substance use: never Substance use type: does not use Current Housing: Decline to Answer Concerned About Future Housing: Decline to Answer Difficulty Paying Gas/Electric Bills: Decline to Answer Difficulty Paying for Meds: Decline to Answer Currently Unemployed: Decline to Answer Education: Decline to Answer Difficulty w/ Childcare or Family Care: Decline to Answer Living arrangements: with family Additional living arrangements comments: - [facility] Gender identity (if verbalized by the patient): Male Sexual Orientation (if Verbalized by the Patient): Straight or Heterosexual Spiritual care concerns: No Agree to blood products: Yes Meds Home Medications and Allergies Home Medications ?Medication ?Instructions ?Recorded ?Confirmed ?Type acetaminophen 500 mg capsule 1,000 mg (2 x 500 mg) PO BID PRN 05/27/25 07/09/25 Rx Pain (Scale Score 1-3) 30 days #0 caps brimonidine 0.2 %-timolol 0.5 % 1 drp EACH EYE Q12H 30 days #1 ea 05/27/25 07/09/25 Rx eye drops duloxetine 30 mg capsule,delayed 30 mg PO BID 30 days #60 caps 05/27/25 07/09/25 Rx release lisinopril 10 mg tablet 10 mg PO DAILY 30 days #90 t abs 05/27/25 07/09/25 Rx metoprolol tartrate 50 mg tablet 50 mg PO BID 30 days #180 tabs 05/27/25 07/09/25 Rx potassium citrate 15 mEq (1,620 15 meq PO BID 30 days #0 tabs 05/27/25 07/09/25 Rx mg) tablet,extended release tamsulosin 0.4 mg capsule 0.8 mg (2 x 0.4 mg) PO HS 30 days 05/27/25 07/09/25 Rx #0 caps aspirin 81 mg chewable tablet 81 mg PO DAILY #30 tabs 06/02/25 07/09/25 Rx cranberry fruit 450 mg tablet 450 mg PO DAILY #30 tabs 06/02/25 07/09/25 Rx fluconazole 150 mg tablet 150 mg PO Q3D #2 tabs 07/09/25 Rx nystatin 100,000 unit/gram topical 1 applic topical QI D 30 days #30 06/09/25 07/09/25 Rx cream grams nystatin 100,000 unit/gram topical 1 applic topical BI D #60 grams 06/09/25 07/09/25 Rx powder Allergies Allergy/AdvReac Type Severity Reaction Status Date / Time No Known Drug Allergies Allergy Mild unknown Verified 07/09/25 17:15 Vital Signs Vital Signs - 24 hr 07/09/25 09:20 07/09/25 11:03 07/09/25 13:35 Temperature 97.6 F Pulse Rate 78 78 77 Respiratory Rate 20 20 22 H Blood Pressure 137/73 152/99 H 97/60 L Pulse Oximetry 95 95 97 Oxygen Delivery Room Air 07/09/25 13:58 07/09/25 15:04 07/09/25 16:16 Temperature Pulse Rate 78 82 86 Respiratory Rate 18 22 H 22 H Blood Pressure 119/83 112/68 115/82 Pulse Oximetry 93 97 96 Oxygen Delivery 07/09/25 18:00 07/09/25 21:53 Temperature 97.6 F Pulse Rate 52 L Respiratory Rate 16 Blood Pressure 101/82 Pulse Oximetry 97 Oxygen Delivery Room Air Exam Const: General: cooperative, healthy appearing, comfortable, no acute distress, well developed, awake, Physically active, average body habitus and well nourished Nutritional Appearance: average body habitus and well nourished Orientation/consciousness: oriented to person and oriented to place HENMT: Head: normal to inspection, No palpable skull fracture present, normocephalic, atraumatic and abrasion Eyes: General: appearance normal, both eyes and all related structures Alignment and Position: alignment normal Periorbital: periorbital findings normal Eyelids: eyelids normal Neck: Neck: normal visual inspection, full ROM and no lymphadenopathy Chest: Chest palpation & inspection: normal inspection of the chest Resp: Effort & Inspection: normal respiratory effort Auscultation: clear to auscultation bilaterally Cardio: Palpation: normal PMI Rate: regular rate Rhythm: regular rhythm Heart sounds: S1 normal heart sound present and S2 normal heart sound present Peripheral pulses: Peripheral pulses 2+ throughout GI: Inspection: normal to inspection Percussion: Yes normal to percussion Auscultation: normal bowel sounds Rectal Exam: deferred : General: Yes no CVA tenderness Back/Spine/Pelvis: Back: no CVA tenderness Cervical Spine: cervical ROM normal Thoracic/Lumbar Spine: thoracic and lumbar spine normal to inspection Pelvis: no pain with anterior-posterior compression Skin: General skin exam: normal color Lesions: no lesions Rashes: no rashes Trauma: no lacerations or abrasions Wounds: no wounds Hair: normal Nails: normal Neuro: General: oriented to person and oriented to place Speech: normal speech Extrem: General: normal to inspection Right upper extremity: normal to inspection and shoulder/upper arm Left upper extremity: normal to inspection and shoulder/upper arm Right lower extremity: normal to inspection Left lower extremity: normal to inspection Psych: Appearance: grossly normal Mental Status: mental status grossly normal Speech and movement: Normal speech and movement present Affect: normal affect Attitude: cooperative Thought process: Normal thought process present Thought content: Yes Normal thought content present Results Labs Labs: Short CBC 07/09/25 Range/Units 10:30 WBC 18.9 H (4.5-10.0) K/mm3 Hgb 14.4 (14.0-18.0) g/dL Hct 43.4 (42.0-52.0) % Plt Count 353 (150-375) k/mm3 BMP 07/09/25 10:30 Sodium 140 Potassium 5.1 H Chloride 105 Carbon Dioxide 25 BUN 46 H D Creatinine 2.16 H Glucose 165 H Calcium 9.6 Liver Function 07/09/25 Range/Units 10:30 Total Bilirubin 1.2 (0.2-1.3) mg/dL AST 39 (17-59) U/L ALT 28 (6-50) U/L Alkaline Phosphatase 96 (38-126) U/L Albumin 4.3 (3.5-5.1) g/dL Urine 07/09/25 Range/Units 13:03 Urine Color Yellow (Yellow) Urine Appearance Turbid H (Clear) Urine pH 5.0 (5.0-9.0) Ur Specific [place] 1.020 (1.001-1.035) Urine Protein 3+ H (Negative) mg/dL Urine Glucose (UA) Negative (Negative) mg/dL Attestation: I personally reviewed all lab results ECG Attestation: I personally reviewed and interpreted this ECG as follows: Interpretation: est Date: 2025-07-09 09:32:49 Measurements Intervals [place] Rate: 76 P: 2 FL: 193 QRS: 5 QRSD: 157 T: -10 QT: 431 QTc: 487 Interpretive Statements SINUS RHYTHM WITH SINUS ARRHYTHMIA RIGHT BUNDLE BRANCH BLOCK CONSIDER INFERIOR INFARCT, AGE INDETERMINATE BASELINE ARTIFACT- I, III ABNORMAL ECG Compared to ECG 05/25/2025 14:15:52 Ventricular premature complex(es) no longer present Imaging CT scan - head: Attestation: I personally reviewed this imaging study Radiologist's impression: ITS Impressions Chest X-Ray 07/09/25 11:04 IMPRESSION: 1. Borderline enlarged heart shadow. No armani pulmonary edema or large effusion. Head CT 07/09/25 11:08 IMPRESSION: 1. No gross intracranial mass effect or hemorrhage. 2. Ventriculomegaly; query if patient has presentation suggestive of NPH. 3. Chronic white vessel ischemic white matter changes. Quality VTE Prophylaxis VTE prophylaxis: mechanical ordered Assessment and Plan Assessment and plan (1) Acute metabolic encephalopathy: Code(s): G93.41 - Metabolic encephalopathy Status: Acute Assessment and Plan: -Head CT 07/09/25 11:08 IMPRESSION 1. No gross intracranial mass effect or hemorrhage. 2. Ventriculomegaly; query if patient has presentation suggestive of NPH. 3. Chronic white vessel ischemic white matter changes. -patient currently is being treated for UTI. -continue to monitor neurological status. (2) Acute UTI: Code(s): N39.0 - Urinary tract infection, site not specified Status: Acute Assessment and Plan: -ceftriaxone has been started. -no growth in the urine on 06/29/2025. -repeat urine cultures have been obtained -monitor blood cultures. -the patient is afebrile. -vital signs is stable and does not appear septic. His heart rate is in the 50s and blood pressure 101/82. -his white count is 18.9. -continue with IV fluid -monitor lactic. (3) CKD stage 3a, GFR 45-59 ml/min: Code(s): N18.31 - Chronic kidney disease, stage 3a Status: Acute Assessment and Plan: -renal ultrasound on 04/10/2024 showed normal kidney size is no hydronephrosis at that time. -continue with IV fluids. Patient's BUN is 46 creatinine is 2.16 and GFR is 30 with a baseline GFR 44-56. -most likely pre renal azotemia. -may consider Nephrology consult if worsening renal function. -may also consider PE renal ultrasound if no improvement. (4) Essential hypertension: Code(s): I10 - Essential (primary) hypertension Status: Chronic Assessment and Plan: -continue with metoprolol if blood pressure allows. Hold if heart rate less than 50. (5) BPH (benign prostatic hyperplasia): Code(s): N40.0 - Benign prostatic hyperplasia without lower urinary tract symptoms Status: Acute Assessment and Plan: -continue with Flomax (6) Glaucoma: Code(s): H40.9 - Unspecified glaucoma Status: Acute Assessment and Plan: -continue with timolol eyedrops.
[2025-07-10 05:52] LABS: Hematocrit 41.1 % (42.0-52.0); Hemoglobin 13.1 g/dL (14.0-18.0); Mean Corpuscular HGB Conc 31.9 g/dl (32-36); Mean Corpuscular Hemoglobin 33.4 pg (26-34); Mean Corpuscular Volume 104.8 fl (80-100); Platelet Count Result 308 k/mm3 (150-375); Red Blood Count 3.92 M/mm3 (4.6-6.20); White Blood Count 12.6 K/mm3 (4.5-10.0)
[2025-07-10 05:56] VITALS: BP 130/71; PULSE 69; RESP 16; TEMP 36.4; O2SAT 95
[2025-07-10 06:06] LABS: Anion Gap 8 mmol/L (4-12); Blood Urea Nitrogen 41 mg/dL (9-20); Calcium 9.2 mg/dL (8.4-10.2); Carbon Dioxide 22 mmol/L (22-30); Chloride 107 mmol/L (98-107); Estimated CRCL calculation 43 ml/min; Estimated Glomerular Filt Rate 46; Glucose 126 mg/dL (65-110); Potassium 4.1 mmol/L (3.4-5.0); Sodium 137 mmol/L (137-145)
[2025-07-10 08:19] VITALS: BP 140/91; PULSE 74; RESP 16; O2SAT 95
[2025-07-10 08:21] VITALS: PULSE 78
[2025-07-10] MEDS: METOPROLOL TARTRATE 50 MG TAB PO ×2 (08:21→20:30)
[2025-07-10] MEDS: MICONAZOLE NITRATE 2% CREAM 30 GM TUBE 1 APPLIC TOPICAL ×2 (08:22→20:32)
[2025-07-10] MEDS: ASPIRIN 81 MG CHEWABLE TABLET PO (08:22)
[2025-07-10] MEDS: TIMOLOL MALEATE 0.5% OP SOLN 5 ML BOTTLE 1 DROP EACH EYE ×2 (08:22→20:32)
[2025-07-10] MEDS: BRIMONIDINE TARTRATE 0.2% OP SOLN 5 ML BTL 1 DROP EACH EYE ×2 (08:22→20:32)
--- NOTE | 2025-07-10 08:25 | P.PNIM_ITS ---
Assessment and Plan Assessment and Plan (1) Acute metabolic encephalopathy: Code(s): G93.41 - Metabolic encephalopathy Status: Acute Assessment and Plan: * Head CT: No gross intracranial mass effect or hemorrhage. Ventriculomegaly; query if patient has presentation suggestive of NPH. Chronic white vessel ischemic white matter changes. * patient currently is being treated for UTI * continue to monitor neurological status * A&O x4 on 07/10 (2) Acute UTI: Code(s): N39.0 - Urinary tract infection, site not specified Status: Acute Assessment and Plan: * UA: 21-50 RBC, >100 WBC, 3+ leukocyte esterase, 3+ blood * ceftriaxone has been started * no growth in the urine on 06/29/2025 * repeat urine cultures pending * monitor blood cultures * Afebrile * vital signs is stable and does not appear septic. His heart rate is in the 50s and blood pressure 101/82. * WBC 18.9. * IVFs * monitor lactic (3) CKD stage 3a, GFR 45-59 ml/min: Code(s): N18.31 - Chronic kidney disease, stage 3a Status: Acute Assessment and Plan: * renal ultrasound on 04/10/2024 showed normal kidney size is no hydronephrosis at that time. * continue with IV fluids. Patient's BUN is 46 creatinine is 2.16 and GFR is 30 with a baseline GFR 44-56. * most likely pre renal azotemia. * may consider Nephrology consult if worsening renal function. * may also consider PE renal ultrasound if no improvement. * 07/10: Cr down from 2.16 -> 1.48 (4) Essential hypertension: Code(s): I10 - Essential (primary) hypertension Status: Chronic Assessment and Plan: * continue with metoprolol if blood pressure allows. Hold if heart rate less than 50. * 140/91 (5) BPH (benign prostatic hyperplasia): Code(s): N40.0 - Benign prostatic hyperplasia without lower urinary tract symptoms Status: Acute Assessment and Plan: * continue with Flomax (6) Glaucoma: Code(s): H40.9 - Unspecified glaucoma Status: Acute Assessment and Plan: * continue with timolol eyedrops. Subjective Date/time seen: 07/10/25 08:25 Interval history: 79-year-old male patient who has a history of chronic kidney disease, hypertension, and UTIs. The patient recently had a De Leon catheter placed. This has been ongoing for the last week. 07/10/2025 Patient sitting comfortably in bed at time of examination. Denies any chest pain, shortness of breath, nausea/vomiting or abdominal pain. Leukocytosis improving, down from 18.9 that is 12.6. Remains afebrile. Blood/urine cultures pending. Kidney function also improving, down from 2.16-1.48. Review of Systems Review of Systems: The patient is a poor historian. Constitutional: Constitutional: Reports as per HPI and Reports no additional constitutional complaints Eyes: Eyes: Reports as per HPI and Reports no additional eye complaints ENT: Reports system reviewed and no additional complaints, except as documented and Reports Normal hearing present Cardiovascular: Cardiovascular: Reports no additional cardiovascular complaints Respiratory: Respiratory: Reports as per HPI and Reports no additional respiratory complaints Gastrointestinal: Gastrointestinal: Reports as per HPI and Reports no additional gastrointestinal complaints Musculoskeletal: Musculoskeletal: Reports no additional musculoskeletal complaints Integumentary/Breasts: Skin/Breast: Reports system reviewed and no additional complaints, except as docu Neurologic: Reports system reviewed and no additional complaints, except as documented and Reports Normal hearing present Psychiatric: Psychiatric: Reports no additional psychiatric complaints and Reports as per HPI Hematologic/Lymphatic: Hematologic/Lymphatic: Reports no additional hematologic/lymphatic complaints Allergic/Immunologic: Allergic/Immunologic: Reports no additional allergic/immunologic complaints Exam Const: General: cooperative, healthy appearing, comfortable, no acute distress, well developed, awake, Physically active, average body habitus and well nourished Nutritional Appearance: average body habitus and well nourished Orientation/consciousness: oriented to person and oriented to place HENMT: Head: normal to inspection, No palpable skull fracture present, normocephalic, atraumatic and abrasion Eyes: General: appearance normal, both eyes and all related structures Alignment and Position: alignment normal Periorbital: periorbital findings normal Eyelids: eyelids normal Neck: Neck: normal visual inspection, full ROM and no lymphadenopathy Chest: Chest palpation & inspection: normal inspection of the chest Resp: Effort & Inspection: normal respiratory effort Auscultation: clear to auscultation bilaterally Cardio: Palpation: normal PMI Rate: regular rate Rhythm: regular rhythm Heart sounds: S1 normal heart sound present and S2 normal heart sound present Peripheral pulses: Peripheral pulses 2+ throughout GI: Inspection: normal to inspection Auscultation: normal bowel sounds Rectal Exam: deferred : General: Yes no CVA tenderness Back/Spine/Pelvis: Back: no CVA tenderness Cervical Spine: cervical ROM normal Thoracic/Lumbar Spine: thoracic and lumbar spine normal to inspection Pelvis: no pain with anterior-posterior compression Skin: General skin exam: normal color Lesions: no lesions Rashes: no rashes Trauma: no lacerations or abrasions Wounds: no wounds Hair: normal Nails: normal Neuro: General: oriented to person and oriented to place Cranial nerves: Yes Normal hearing present Speech: normal speech Extrem: General: normal to inspection Right upper extremity: normal to inspection and shoulder/upper arm Left upper extremity: normal to inspection and shoulder/upper arm Right lower extremity: normal to inspection Left lower extremity: normal to inspection Psych: Appearance: grossly normal Mental Status: mental status grossly normal Speech and movement: Normal speech and movement present Affect: normal affect Attitude: cooperative Thought process: Normal thought process present Objective Data Vital Signs Vital Signs: Vital Signs - 24 hr 07/09/25 09:20 07/09/25 11:03 07/09/25 13:35 Temperature 97.6 F Pulse Rate 78 78 77 Respiratory Rate 20 20 22 H Blood Pressure 137/73 152/99 H 97/60 L Pulse Oximetry 95 95 97 Oxygen Delivery Room Air 07/09/25 13:58 07/09/25 15:04 07/09/25 16:16 Temperature Pulse Rate 78 82 86 Respiratory Rate 18 22 H 22 H Blood Pressure 119/83 112/68 115/82 Pulse Oximetry 93 97 96 Oxygen Delivery 07/09/25 18:00 07/09/25 21:53 07/10/25 05:56 Temperature 97.6 F 97.6 F Pulse Rate 52 L 69 Respiratory Rate 16 16 Blood Pressure 101/82 130/71 Pulse Oximetry 97 95 Oxygen Delivery Room Air 07/10/25 08:19 07/10/25 08:21 Temperature Pulse Rate 74 78 Respiratory Rate 16 Blood Pressure 140/91 H Pulse Oximetry 95 Oxygen Delivery Intake/Output Intake/Output: Intake & Output 07/07/25 07/08/25 07/09/25 07/10/25 23:59 23:59 23:59 23:59 Intake Total 1270 Output Total 650 500 Balance 620 -500 Meds/Results Medications: Active Medications Generic Name Dose Route Start Last Admin Trade Name Ney PRN Reason Stop Dose Admin Acetaminophen 1,000 mg 07/10/25 03:39 Acetaminophen 500 Mg Tablet PO Q12H PRN Pain (Scale Score 1-3) Aspirin 81 mg 07/10/25 08:00 07/10/25 08:22 Aspirin 81 Mg Chewable Tablet PO 81 mg DAILY@0800 MART Administration Brimonidine Tartrate 1 drop 07/10/25 09:00 07/10/25 08:22 Brimonidine Tartrate 0.2% Op Soln 5 Ml Btl EACH EYE 1 drop Q12HR MART Administration Duloxetine HCl 30 mg 07/10/25 09:00 07/10/25 08:21 Duloxetine Hcl 30 Mg Capsule.Dr PO 30 mg Q12HR MART Administration Ceftriaxone Sodium 1 gm/ 50 mls @ 100 mls/hr 07/10/25 14:00 Sodium Chloride IVPB Q24H [facility] Metoprolol Tartrate 50 mg 07/10/25 09:00 07/10/25 08:21 Metoprolol Tartrate 50 Mg Tab PO 50 mg Q12HR MART Administration Miconazole Nitrate 1 applic 07/10/25 09:00 07/10/25 08:22 Miconazole Nitrate 2% Cream 30 Gm Tube TOPICAL 1 applic Q12HR MART Administration Tamsulosin HCl 0.8 mg 07/10/25 21:00 Tamsulosin Hcl 0.4 Mg Capsule PO HS [facility] Timolol Maleate 1 drop 07/10/25 09:00 07/10/25 08:22 Timolol Maleate 0.5% Op Soln 5 Ml Bottle EACH EYE 1 drop Q12HR MART Administration Radiology Results: ITS Impressions Chest X-Ray 07/09/25 11:04 IMPRESSION: 1. Borderline enlarged heart shadow. No armani pulmonary edema or large effusion. Head CT 07/09/25 11:08 IMPRESSION: 1. No gross intracranial mass effect or hemorrhage. 2. Ventriculomegaly; query if patient has presentation suggestive of NPH. 3. Chronic white vessel ischemic white matter changes. Labs Labs: Laboratory Results - last 24 hr 07/09/25 07/09/25 07/09/25 10:30 12:09 13:03 WBC 18.9 H RBC 4.23 L Hgb 14.4 Hct 43.4 MCV 102.6 H MCH 34.0 MCHC 33.2 RDW 13.7 Plt Count 353 MPV 8.6 Immature Gran % (Auto) 0.5 Neut % (Auto) 87.2 H Lymph % (Auto) 3.2 L [place] % (Auto) 8.1 Eos % (Auto) 0.6 Baso % (Auto) 0.4 Lymph # (Auto) 0.60 L [place] # (Auto) 1.5 H Eos # (Auto) 0.1 Baso # (Auto) 0.1 Abs Immat Gran (auto) 0.09 H Absolute Neuts (auto) 16.5 H Absolute Nucleated RBC 0.000 Nucleated RBC % 0.0 PT 16.2 H INR 1.3 APTT 27.3 Sodium 140 Potassium 5.1 H Chloride 105 Carbon Dioxide 25 Anion Gap 10 BUN 46 H D Creatinine 2.16 H Estim Creat Clear Calc Not Reportable Estimated GFR 30 L Glucose 165 H Lactic Acid Calcium 9.6 Total Bilirubin 1.2 AST 39 ALT 28 Alkaline Phosphatase 96 Total Protein 8.5 H Albumin 4.3 Urine Color Yellow Urine Appearance Turbid H Urine pH 5.0 Ur Specific Golf 1.020 Urine Protein 3+ H Urine Glucose (UA) Negative Urine Ketones Trace H Ur Blood (Man) 3+ H Urine Nitrate Negative Urine Bilirubin Negative Urine Urobilinogen 0.2 Add Ur Microanalysis Reviewed Leukocyte Esterase Rfl 3+ H Urine RBC 21-50 H Urine WBC >100 H Ur Squamous Epith Cells None seen Urine Bacteria 4+ H Urine Casts 3-5 Influenza A (RT-PCR) Negative Influenza B (RT-PCR) Negative SARS-CoV-2 RNA (RT-PCR) Negative 07/10/25 05:45 WBC 12.6 H RBC 3.92 L Hgb 13.1 L Hct 41.1 L MCV 104.8 H MCH 33.4 MCHC 31.9 L RDW 13.6 Plt Count 308 MPV 8.5 Immature Gran % (Auto) Neut % (Auto) Lymph % (Auto) [place] % (Auto) Eos % (Auto) Baso % (Auto) Lymph # (Auto) [place] # (Auto) Eos # (Auto) Baso # (Auto) Abs Immat Gran (auto) Absolute Neuts (auto) Absolute Nucleated RBC Nucleated RBC % PT INR APTT Sodium 137 Potassium 4.1 Chloride 107 Carbon Dioxide 22 Anion Gap 8 BUN 41 H Creatinine 1.48 H Estim Creat Clear Calc 43 Estimated GFR 46 L Glucose 126 H Lactic Acid 1.0 Calcium 9.2 Total Bilirubin AST ALT Alkaline Phosphatase Total Protein Albumin Urine Color Urine Appearance Urine pH Ur Specific Golf Urine Protein Urine Glucose (UA) Urine Ketones Ur Blood (Man) Urine Nitrate Urine Bilirubin Urine Urobilinogen Add Ur Microanalysis Leukocyte Esterase Rfl Urine RBC Urine WBC Ur Squamous Epith Cells Urine Bacteria Urine Casts Influenza A (RT-PCR) Influenza B (RT-PCR) SARS-CoV-2 RNA (RT-PCR) Quality VTE Prophylaxis VTE prophylaxis: mechanical ordered
[2025-07-10 14:00] VITALS: BP 126/64; PULSE 68; RESP 18; TEMP 36.8; O2SAT 98
[2025-07-10] MEDS: cefTRIAXone 1 GM in SODIUM CHLORIDE 0.9% IV 50 ML 100 ML IVPB (14:00)
[2025-07-10 20:00] VITALS: BP 153/67; PULSE 81; RESP 18; TEMP 36.4; O2SAT 96
[2025-07-10 20:30] VITALS: PULSE 68
[2025-07-10] MEDS: TAMSULOSIN HCL 0.4 MG CAPSULE 0.8 MG PO (20:30)
[2025-07-11 04:00] VITALS: BP 112/62; PULSE 83; RESP 16; TEMP 36.5; O2SAT 94
[2025-07-11 05:24] LABS: Hematocrit 39.2 % (42.0-52.0); Hemoglobin 12.6 g/dL (14.0-18.0); Mean Corpuscular HGB Conc 32.1 g/dl (32-36); Mean Corpuscular Hemoglobin 33.3 pg (26-34); Mean Corpuscular Volume 103.7 fl (80-100); Platelet Count Result 289 k/mm3 (150-375); Red Blood Count 3.78 M/mm3 (4.6-6.20); White Blood Count 9.2 K/mm3 (4.5-10.0)
[2025-07-11 05:36] LABS: Anion Gap 6 mmol/L (4-12); Blood Urea Nitrogen 36 mg/dL (9-20); Calcium 8.8 mg/dL (8.4-10.2); Carbon Dioxide 24 mmol/L (22-30); Chloride 105 mmol/L (98-107); Estimated CRCL calculation 51 ml/min; Estimated Glomerular Filt Rate 57; Glucose 119 mg/dL (65-110); Magnesium 2.1 mg/dL (1.6-2.3); Potassium 4.1 mmol/L (3.4-5.0); Sodium 135 mmol/L (137-145)
--- NOTE | 2025-07-11 08:37 | P.PNIM_ITS ---
Assessment and Plan Assessment and Plan (1) Acute metabolic encephalopathy: Code(s): G93.41 - Metabolic encephalopathy Status: Acute Assessment and Plan: * Head CT: No gross intracranial mass effect or hemorrhage. Ventriculomegaly; query if patient has presentation suggestive of NPH. Chronic white vessel ischemic white matter changes. * Previous Head CTs (several taken over the past 18 months for AMS) has shown prior evidence of dilated ventricles and subarachnoid spaces consistent with atrophy and chronic microvascular changes * patient currently is being treated for UTI * no focal deficits * maintain sleep/wake cycle * continue to monitor neurological status * A&O x4 on 07/10 (2) Acute UTI: Code(s): N39.0 - Urinary tract infection, site not specified Status: Acute Assessment and Plan: * UA: 21-50 RBC, >100 WBC, 3+ leukocyte esterase, 3+ blood * ceftriaxone has been started * no growth in the urine on 06/29/2025 * repeat urine cultures pending * monitor blood cultures * Afebrile * vital signs is stable and does not appear septic. His heart rate is in the 50s and blood pressure 101/82. * WBC 18.9 -> 12.6 -> 9.2 * IVFs * monitor lactic (3) CKD stage 3a, GFR 45-59 ml/min: Code(s): N18.31 - Chronic kidney disease, stage 3a Status: Acute Assessment and Plan: * renal ultrasound on 04/10/2024 showed normal kidney size is no hydronephrosis at that time. * continue with IV fluids. Patient's BUN is 46 creatinine is 2.16 and GFR is 30 with a baseline GFR 44-56. * most likely pre renal azotemia. * may consider Nephrology consult if worsening renal function. * may also consider PE renal ultrasound if no improvement. * 07/11: Cr down from 2.16 -> 1.48 -> 1.22 (4) Essential hypertension: Code(s): I10 - Essential (primary) hypertension Status: Chronic Assessment and Plan: * continue with metoprolol if blood pressure allows. Hold if heart rate less than 50. * 140/91 (5) BPH (benign prostatic hyperplasia): Code(s): N40.0 - Benign prostatic hyperplasia without lower urinary tract symptoms Status: Acute Assessment and Plan: * continue with Flomax (6) Glaucoma: Code(s): H40.9 - Unspecified glaucoma Status: Acute Assessment and Plan: * continue with timolol eyedrops. Subjective Date/time seen: 07/11/25 08:37 Interval history: 79-year-old male patient who has a history of chronic kidney disease, hypertension, and UTIs. The patient recently had a De Leon catheter placed. This has been ongoing for the last week. 07/11/2025 Patient sitting comfortably in bed at time of examination. Denies any chest pain, shortness of breath, nausea/vomiting or abdominal pain. HR has been mid/upper 40s BPM, will hold metoprolol. Urine/blood cultures still pending. Leukocytosis has resolved. Remains afebrile. Review of Systems Review of Systems: The patient is a poor historian. Constitutional: Constitutional: Reports as per HPI and Reports no additional constitutional complaints Eyes: Eyes: Reports as per HPI and Reports no additional eye complaints ENT: Reports system reviewed and no additional complaints, except as documented and Reports Normal hearing present Cardiovascular: Cardiovascular: Reports no additional cardiovascular complaints Respiratory: Respiratory: Reports as per HPI and Reports no additional respiratory complaints Gastrointestinal: Gastrointestinal: Reports as per HPI and Reports no additional gastrointestinal complaints Musculoskeletal: Musculoskeletal: Reports no additional musculoskeletal complaints Integumentary/Breasts: Skin/Breast: Reports system reviewed and no additional complaints, except as docu Neurologic: Reports system reviewed and no additional complaints, except as documented and Reports Normal hearing present Psychiatric: Psychiatric: Reports no additional psychiatric complaints and Reports as per HPI Hematologic/Lymphatic: Hematologic/Lymphatic: Reports no additional hematologic/lymphatic complaints Allergic/Immunologic: Allergic/Immunologic: Reports no additional allergic/immunologic complaints Exam Const: General: cooperative, healthy appearing, comfortable, no acute distress, well developed, awake, Physically active, average body habitus and well nourished Nutritional Appearance: average body habitus and well nourished Orientation/consciousness: oriented to person and oriented to place HENMT: Head: normal to inspection, No palpable skull fracture present, normocephalic, atraumatic and abrasion Eyes: General: appearance normal, both eyes and all related structures Alignment and Position: alignment normal Periorbital: periorbital findings normal Eyelids: eyelids normal Neck: Neck: normal visual inspection, full ROM and no lymphadenopathy Chest: Chest palpation & inspection: normal inspection of the chest Resp: Effort & Inspection: normal respiratory effort Auscultation: clear to auscultation bilaterally Cardio: Palpation: normal PMI Rate: regular rate Rhythm: regular rhythm Heart sounds: S1 normal heart sound present and S2 normal heart sound present Peripheral pulses: Peripheral pulses 2+ throughout GI: Inspection: normal to inspection Auscultation: normal bowel sounds Rectal Exam: deferred : General: Yes no CVA tenderness Back/Spine/Pelvis: Back: no CVA tenderness Cervical Spine: cervical ROM normal Thoracic/Lumbar Spine: thoracic and lumbar spine normal to inspection Pelvis: no pain with anterior-posterior compression Skin: General skin exam: normal color Lesions: no lesions Rashes: no rashes Trauma: no lacerations or abrasions Wounds: no wounds Hair: normal Nails: normal Neuro: General: oriented to person and oriented to place Cranial nerves: Yes Normal hearing present Speech: normal speech Extrem: General: normal to inspection Right upper extremity: normal to inspection and shoulder/upper arm Left upper extremity: normal to inspection and shoulder/upper arm Right lower extremity: normal to inspection Left lower extremity: normal to inspection Psych: Appearance: grossly normal Mental Status: mental status grossly normal Speech and movement: Normal speech and movement present Affect: normal affect Attitude: cooperative Thought process: Normal thought process present Objective Data Vital Signs Vital Signs: Vital Signs - 24 hr 07/10/25 14:00 07/10/25 20:00 07/10/25 20:30 Temperature 98.2 F 97.5 F L Pulse Rate 68 81 68 Respiratory Rate 18 18 Blood Pressure 126/64 153/67 H Pulse Oximetry 98 96 07/11/25 04:00 Temperature 97.7 F Pulse Rate 83 Respiratory Rate 16 Blood Pressure 112/62 Pulse Oximetry 94 Intake/Output Intake/Output: Intake & Output 07/08/25 07/09/25 07/10/25 07/11/25 23:59 23:59 23:59 23:59 Intake Total 1270 2450 Output Total 650 1300 500 Balance 620 1150 -500 Meds/Results Medications: Active Medications Generic Name Dose Route Start Last Admin Trade Name Freq PRN Reason Stop Dose Admin Acetaminophen 1,000 mg 07/10/25 03:39 Acetaminophen 500 Mg Tablet PO Q12H PRN Pain (Scale Score 1-3) Aspirin 81 mg 07/10/25 08:00 07/10/25 08:22 Aspirin 81 Mg Chewable Tablet PO 81 mg DAILY@0800 MART Administration Brimonidine Tartrate 1 drop 07/10/25 09:00 07/10/25 20:32 Brimonidine Tartrate 0.2% Op Soln 5 Ml Btl EACH EYE 1 drop Q12HR MART Administration Duloxetine HCl 30 mg 07/10/25 09:00 07/10/25 20:30 Duloxetine Hcl 30 Mg Capsule.Dr PO 30 mg Q12HR MART Administration Ceftriaxone Sodium 1 gm/ 50 mls @ 100 mls/hr 07/10/25 14:00 07/10/25 14:30 Sodium Chloride IVPB Infused Q24H MART Infusion Metoprolol Tartrate 50 mg 07/10/25 09:00 07/10/25 20:30 Metoprolol Tartrate 50 Mg Tab PO 50 mg Q12HR MART Administration Miconazole Nitrate 1 applic 07/10/25 09:00 07/10/25 20:32 Miconazole Nitrate 2% Cream 30 Gm Tube TOPICAL 1 applic Q12HR MART Administration Tamsulosin HCl 0.8 mg 07/10/25 21:00 07/10/25 20:30 Tamsulosin Hcl 0.4 Mg Capsule PO 0.8 mg HS MART Administration Timolol Maleate 1 drop 07/10/25 09:00 07/10/25 20:32 Timolol Maleate 0.5% Op Soln 5 Ml Bottle EACH EYE 1 drop Q12HR MART Administration Radiology Results: ITS Impressions Chest X-Ray 07/09/25 11:04 IMPRESSION: 1. Borderline enlarged heart shadow. No armani pulmonary edema or large effusion. Head CT 07/09/25 11:08 IMPRESSION: 1. No gross intracranial mass effect or hemorrhage. 2. Ventriculomegaly; query if patient has presentation suggestive of NPH. 3. Chronic white vessel ischemic white matter changes. Labs Labs: Laboratory Results - last 24 hr 07/11/25 05:16 WBC 9.2 RBC 3.78 L Hgb 12.6 L Hct 39.2 L MCV 103.7 H MCH 33.3 MCHC 32.1 RDW 13.3 Plt Count 289 MPV 8.7 Sodium 135 L Potassium 4.1 Chloride 105 Carbon Dioxide 24 Anion Gap 6 BUN 36 H Creatinine 1.22 Estim Creat Clear Calc 51 Estimated GFR 57 L Glucose 119 H Lactic Acid 1.4 Calcium 8.8 Phosphorus 2.8 Magnesium 2.1 Quality VTE Prophylaxis VTE prophylaxis: mechanical ordered
[2025-07-11] MEDS: BRIMONIDINE TARTRATE 0.2% OP SOLN 5 ML BTL 1 DROP EACH EYE ×2 (09:58→20:47)
[2025-07-11] MEDS: ASPIRIN 81 MG CHEWABLE TABLET PO (09:58)
[2025-07-11] MEDS: MICONAZOLE NITRATE 2% CREAM 30 GM TUBE 1 APPLIC TOPICAL ×2 (09:59→20:46)
[2025-07-11] MEDS: TIMOLOL MALEATE 0.5% OP SOLN 5 ML BOTTLE 1 DROP EACH EYE ×2 (09:59→20:47)
[2025-07-11 10:05] VITALS: PULSE 46
[2025-07-11 12:45] VITALS: PULSE 84
[2025-07-11 14:00] VITALS: BP 133/77; PULSE 53; RESP 16; TEMP 36.5; O2SAT 93
[2025-07-11] MEDS: cefTRIAXone 1 GM in SODIUM CHLORIDE 0.9% IV 50 ML 100 ML IVPB (14:21)
[2025-07-11 20:45] VITALS: PULSE 64
[2025-07-11] MEDS: TAMSULOSIN HCL 0.4 MG CAPSULE 0.8 MG PO (20:45)
[2025-07-11] MEDS: METOPROLOL TARTRATE 50 MG TAB PO (20:45)
[2025-07-11 22:00] VITALS: BP 159/78; PULSE 60; RESP 18; TEMP 36.6; O2SAT 93
[2025-07-12 05:34] LABS: Hematocrit 37.8 % (42.0-52.0); Hemoglobin 12.7 g/dL (14.0-18.0); Mean Corpuscular HGB Conc 33.6 g/dl (32-36); Mean Corpuscular Hemoglobin 33.7 pg (26-34); Mean Corpuscular Volume 100.3 fl (80-100); Platelet Count Result 292 k/mm3 (150-375); Red Blood Count 3.77 M/mm3 (4.6-6.20); White Blood Count 8.3 K/mm3 (4.5-10.0)
[2025-07-12 05:52] LABS: Anion Gap 5 mmol/L (4-12); Blood Urea Nitrogen 27 mg/dL (9-20); Calcium 9.0 mg/dL (8.4-10.2); Carbon Dioxide 26 mmol/L (22-30); Chloride 102 mmol/L (98-107); Estimated CRCL calculation 56 ml/min; Estimated Glomerular Filt Rate > 60; Glucose 147 mg/dL (65-110); Potassium 4.2 mmol/L (3.4-5.0); Sodium 133 mmol/L (137-145)
[2025-07-12 06:00] VITALS: BP 130/60; PULSE 64; RESP 18; TEMP 36.5; O2SAT 94
--- NOTE | 2025-07-12 07:23 | P.PNIM_ITS ---
Assessment and Plan Assessment and Plan (1) Acute metabolic encephalopathy: Code(s): G93.41 - Metabolic encephalopathy Status: Acute Assessment and Plan: * Head CT: No gross intracranial mass effect or hemorrhage. Ventriculomegaly; query if patient has presentation suggestive of NPH. Chronic white vessel ischemic white matter changes. * Previous Head CTs (several taken over the past 18 months for AMS) has shown prior evidence of dilated ventricles and subarachnoid spaces consistent with atrophy and chronic microvascular changes * patient currently is being treated for UTI * no focal deficits * maintain sleep/wake cycle * continue to monitor neurological status * A&O x4 on 07/10 * Resolved (2) Acute UTI: Code(s): N39.0 - Urinary tract infection, site not specified Status: Acute Assessment and Plan: * UA: 21-50 RBC, >100 WBC, 3+ leukocyte esterase, 3+ blood * ceftriaxone has been started * no growth in the urine on 06/29/2025 * Urine cultures - enterococcus faecalis * monitor blood cultures * Afebrile * vital signs is stable and does not appear septic. His heart rate is in the 50s and blood pressure 101/82. * WBC 18.9 -> 12.6 -> 8.3 * IVFs * monitor lactic - normalized (3) CKD stage 3a, GFR 45-59 ml/min: Code(s): N18.31 - Chronic kidney disease, stage 3a Status: Acute Assessment and Plan: * renal ultrasound on 04/10/2024 showed normal kidney size is no hydronephrosis at that time. * continue with IV fluids. Patient's BUN is 46 creatinine is 2.16 and GFR is 30 with a baseline GFR 44-56. * most likely pre renal azotemia. * may consider Nephrology consult if worsening renal function. * may also consider PE renal ultrasound if no improvement. * 07/11: Cr down from 2.16 -> 1.48 -> 1.11 (4) Essential hypertension: Code(s): I10 - Essential (primary) hypertension Status: Chronic Assessment and Plan: * continue with metoprolol if blood pressure allows. Hold if heart rate less than 50. * 130/60 (5) BPH (benign prostatic hyperplasia): Code(s): N40.0 - Benign prostatic hyperplasia without lower urinary tract symptoms Status: Acute Assessment and Plan: * continue with Flomax (6) Glaucoma: Code(s): H40.9 - Unspecified glaucoma Status: Acute Assessment and Plan: * continue with timolol eyedrops. Subjective Date/time seen: 07/12/25 07:23 Interval history: 79-year-old male patient who has a history of chronic kidney disease, hypertension, and UTIs. The patient recently had a De Leon catheter placed. This has been ongoing for the last week. 07/12/2025 Patient sitting comfortably in bed at time of examination. Denies any chest pain, shortness of breath, nausea/vomiting or abdominal pain. Urine culture shows growth of Enterococcus faecalis with limited susceptibility. Pt is from assisted living facility who wont be able to take patient today as he will require new medication upon discharge. Remains afebrile without leukocytosis, otherwise progressing well. Will look to possibly discharge tomorrow. Review of Systems Review of Systems: The patient is a poor historian. Constitutional: Constitutional: Reports as per HPI and Reports no additional constitutional complaints Eyes: Eyes: Reports as per HPI and Reports no additional eye complaints ENT: Reports system reviewed and no additional complaints, except as documented and Reports Normal hearing present Cardiovascular: Cardiovascular: Reports no additional cardiovascular complaints Respiratory: Respiratory: Reports as per HPI and Reports no additional respiratory complaints Gastrointestinal: Gastrointestinal: Reports as per HPI and Reports no additional gastrointestinal complaints Musculoskeletal: Musculoskeletal: Reports no additional musculoskeletal complaints Integumentary/Breasts: Skin/Breast: Reports system reviewed and no additional complaints, except as docu Neurologic: Reports system reviewed and no additional complaints, except as documented and Reports Normal hearing present Psychiatric: Psychiatric: Reports no additional psychiatric complaints and Reports as per HPI Hematologic/Lymphatic: Hematologic/Lymphatic: Reports no additional hematologic/lymphatic complaints Allergic/Immunologic: Allergic/Immunologic: Reports no additional aller gic/immunologic complaints Exam Const: General: cooperative, healthy appearing, comfortable, no acute dis tress, well developed, awake, Physically active, average body habitus and well nourished Nutritional Appearance: average body habitus and well nourished Orientation/consciousness: oriented to person and oriented to place HENMT: Head: normal to inspection, No palpable skull fracture present, normocephalic, atraumatic and abrasion Eyes: General: appearance normal, both eyes and all related structures Alignment and Position: alignment normal Periorbital: periorbital findings normal Eyelids: eyelids normal Neck: Neck: normal visual inspection, full ROM and no lymphadenopathy Chest: Chest palpation & inspection: normal inspection of the chest Resp: Effort & Inspection: normal respiratory effort Auscultation: clear to auscultation bilaterally Cardio: Palpation: normal PMI Rate: regular rate Rhythm: regular rhythm Heart sounds: S1 normal heart sound present and S2 normal heart sound present Peripheral pulses: Peripheral pulses 2+ throughout GI: Inspection: normal to inspection Auscultation: normal bowel sounds Rectal Exam: deferred : General: Yes no CVA tenderness Back/Spine/Pelvis: Back: no CVA tenderness Cervical Spine: cervical ROM normal Thoracic/Lumbar Spine: thoracic and lumbar spine normal to inspection Pelvis: no pain with anterior-posterior compression Skin: General skin exam: normal color Lesions: no lesions Rashes: no rashes Trauma: no lacerations or abrasions Wounds: no wounds Hair: normal Nails: normal Neuro: General: oriented to person and oriented to place Cranial nerves: Yes Normal hearing present Speech: normal speech Extrem: General: normal to inspection Right upper extremity: normal to inspection and shoulder/upper arm Left upper extremity: normal to inspection and shoulder/upper arm Right lower extremity: normal to inspection Left lower extremity: normal to inspection Psych: Appearance: grossly normal Mental Status: mental status grossly normal Speech and movement: Normal speech and movement present Affect: normal affect Attitude: cooperative Thought process: Normal thought process present Objective Data Vital Signs Vital Signs: Vital Signs - 24 hr 07/11/25 08:40 07/11/25 09:58 07/11/25 10:05 Temperature Pulse Rate 46 L Respiratory Rate Blood Pressure Pulse Oximetry Oxygen Delivery Room Air Room Air 07/11/25 10:05 07/11/25 12:45 07/11/25 14:00 Temperature 97.7 F Pulse Rate 46 L 84 53 L Respiratory Rate 16 Blood Pressure 133/77 Pulse Oximetry 93 Oxygen Delivery 07/11/25 20:45 07/11/25 22:00 Temperature 97.9 F Pulse Rate 64 60 Respiratory Rate 18 Blood Pressure 159/78 H Pulse Oximetry 93 Oxygen Delivery Intake/Output Intake/Output: Intake & Output 07/09/25 07/10/25 07/11/25 07/12/25 23:59 23:59 23:59 23:59 Intake Total 1270 2450 2712 Output Total 650 1300 1100 Balance 620 1150 1612 Meds/Results Medications: Active Medications Generic Name Dose Route Start Last Admin Trade Name Ney PRN Reason Stop Dose Admin Acetaminophen 1,000 mg 07/10/25 03:39 Acetaminophen 500 Mg Tablet PO Q12H PRN Pain (Scale Score 1-3) Aspirin 81 mg 07/10/25 08:00 07/11/25 09:58 Aspirin 81 Mg Chewable Tablet PO 81 mg DAILY@0800 MART Administration Brimonidine Tartrate 1 drop 07/10/25 09:00 07/11/25 20:47 Brimonidine Tartrate 0.2% Op Soln 5 Ml Btl EACH EYE 1 drop Q12HR MART Administration Duloxetine HCl 30 mg 07/10/25 09:00 07/11/25 20:46 Duloxetine Hcl 30 Mg Capsule.Dr PO 30 mg Q12HR MART Administration Ceftriaxone Sodium 1 gm/ 50 mls @ 100 mls/hr 07/10/25 14:00 07/11/25 14:21 Sodium Chloride IVPB 100 mls/hr Q24H MART Administration Metoprolol Tartrate 50 mg 07/10/25 09:00 07/11/25 20:45 Metoprolol Tartrate 50 Mg Tab PO 50 mg Q12HR MART Administration Miconazole Nitrate 1 applic 07/10/25 09:00 07/11/25 20:46 Miconazole Nitrate 2% Cream 30 Gm Tube TOPICAL 1 applic Q12HR MART Administration Tamsulosin HCl 0.8 mg 07/10/25 21:00 07/11/25 20:45 Tamsulosin Hcl 0.4 Mg Capsule PO 0.8 mg HS MART Administration Timolol Maleate 1 drop 07/10/25 09:00 07/11/25 20:47 Timolol Maleate 0.5% Op Soln 5 Ml Bottle EACH EYE 1 drop Q12HR MART Administration Radiology Results: ITS Impressions Chest X-Ray 07/09/25 11:04 IMPRESSION: 1. Borderline enlarged heart shadow. No armani pulmonary edema or large effusion. Head CT 07/09/25 11:08 IMPRESSION: 1. No gross intracranial mass effect or hemorrhage. 2. Ventriculomegaly; query if patient has presentation suggestive of NPH. 3. Chronic white vessel ischemic white matter changes. Labs Labs: Laboratory Results - last 24 hr 07/12/25 05:26 WBC 8.3 RBC 3.77 L Hgb 12.7 L Hct 37.8 L MCV 100.3 H MCH 33.7 MCHC 33.6 RDW 12.8 Plt Count 292 MPV 8.4 Sodium 133 L Potassium 4.2 Chloride 102 Carbon Dioxide 26 Anion Gap 5 BUN 27 H Creatinine 1.11 Estim Creat Clear Calc 56 Estimated GFR > 60 Glucose 147 H Lactic Acid 0.9 Calcium 9.0 Quality VTE Prophylaxis VTE prophylaxis: mechanical ordered
[2025-07-12 08:09] VITALS: PULSE 84
[2025-07-12] MEDS: ASPIRIN 81 MG CHEWABLE TABLET PO (08:09)
[2025-07-12] MEDS: METOPROLOL TARTRATE 50 MG TAB PO ×2 (08:09→21:38)
[2025-07-12] MEDS: BRIMONIDINE TARTRATE 0.2% OP SOLN 5 ML BTL 1 DROP EACH EYE ×2 (08:11→21:38)
[2025-07-12] MEDS: TIMOLOL MALEATE 0.5% OP SOLN 5 ML BOTTLE 1 DROP EACH EYE ×2 (08:12→21:38)
[2025-07-12] MEDS: MICONAZOLE NITRATE 2% CREAM 30 GM TUBE 1 APPLIC TOPICAL ×2 (08:12→21:39)
[2025-07-12] MEDS: ACETAMINOPHEN 500 MG TABLET 1000 MG PO (13:32)
--- NOTE | 2025-07-12 13:33 | PCOTNOTE ---
Per RN patient has been confused. Attempted to see patient this pm, however patient unable to follow directions. Upon entering, Pt was trying to eat lunch laying in bed. present. Pt agreed to sit up to chair to eat, however was unable to follow steps for bed mobility and became agitated and increasingly agitated with each attempt. Pt not seen for this reason.
[2025-07-12 14:00] VITALS: BP 126/70; PULSE 75; RESP 12; TEMP 36.2; O2SAT 95
--- NOTE | 2025-07-12 17:04 | PC.NURSE ---
Able to get ahold of hospitalist @[id number] regarding pt's AMS. Patient with confusion throughout the day. Patient hallucinates and points at people who are not in the room. Requested anti-anxiety medication regarding pt trying to swing legs out of bed, believing he is at home. Pt getting more agitated. Intermittently making fists at staff when trying to safely get patient in bed. Dieter ESPINOZA states he will add orders
[2025-07-12 21:22] VITALS: BP 143/83; PULSE 100; RESP 18; TEMP 36.5; O2SAT 94
[2025-07-12] MEDS: TAMSULOSIN HCL 0.4 MG CAPSULE 0.8 MG PO (21:37)
[2025-07-12 21:38] VITALS: PULSE 100
[2025-07-13 04:35] VITALS: BP 150/72; PULSE 61; RESP 16; TEMP 36.6; O2SAT 93
[2025-07-13 05:51] LABS: Hematocrit 39.3 % (42.0-52.0); Hemoglobin 13.1 g/dL (14.0-18.0); Mean Corpuscular HGB Conc 33.3 g/dl (32-36); Mean Corpuscular Hemoglobin 33.4 pg (26-34); Mean Corpuscular Volume 100.3 fl (80-100); Platelet Count Result 305 k/mm3 (150-375); Red Blood Count 3.92 M/mm3 (4.6-6.20); White Blood Count 7.8 K/mm3 (4.5-10.0)
[2025-07-13 06:22] LABS: Anion Gap 7 mmol/L (4-12); Blood Urea Nitrogen 22 mg/dL (9-20); Calcium 9.5 mg/dL (8.4-10.2); Carbon Dioxide 26 mmol/L (22-30); Chloride 102 mmol/L (98-107); Estimated CRCL calculation 55 ml/min; Estimated Glomerular Filt Rate > 60; Glucose 151 mg/dL (65-110); Potassium 4.1 mmol/L (3.4-5.0); Sodium 135 mmol/L (137-145)
--- NOTE | 2025-07-13 09:09 | PCOTNOTE ---
Patient refused treatment this session. Patient is confused and laying down. will attempt again if time allows.
--- NOTE | 2025-07-13 10:35 | P.PNIM_ITS ---
Assessment and Plan Assessment and Plan (1) Acute metabolic encephalopathy: Code(s): G93.41 - Metabolic encephalopathy Status: Acute Assessment and Plan: * Head CT: No gross intracranial mass effect or hemorrhage. Ventriculomegaly; query if patient has presentation suggestive of NPH. Chronic white vessel ischemic white matter changes. * Previous Head CTs (several taken over the past 18 months for AMS) has shown prior evidence of dilated ventricles and subarachnoid spaces consistent with atrophy and chronic microvascular changes * patient currently is being treated for UTI * no focal deficits * maintain sleep/wake cycle * continue to monitor neurological status * A&O x2-3 on 07/13 * Neuro consult * Brain MRI pending (2) Acute UTI: Code(s): N39.0 - Urinary tract infection, site not specified Status: Acute Assessment and Plan: * UA: 21-50 RBC, >100 WBC, 3+ leukocyte esterase, 3+ blood * ceftriaxone has been started * no growth in the urine on 06/29/2025 * Urine cultures - enterococcus faecalis * monitor blood cultures * Afebrile * vital signs is stable and does not appear septic. His heart rate is in the 50s and blood pressure 101/82. * WBC 18.9 -> 12.6 -> 7.8 * IVFs * monitor lactic - normalized (3) CKD stage 3a, GFR 45-59 ml/min: Code(s): N18.31 - Chronic kidney disease, stage 3a Status: Acute Assessment and Plan: * renal ultrasound on 04/10/2024 showed normal kidney size is no hydronephrosis at that time. * continue with IV fluids. Patient's BUN is 46 creatinine is 2.16 and GFR is 30 with a baseline GFR 44-56. * most likely pre renal azotemia. * may consider Nephrology consult if worsening renal function. * may also consider PE renal ultrasound if no improvement. * 07/13: Cr down from 2.16 -> 1.48 -> 1.13 (4) Essential hypertension: Code(s): I10 - Essential (primary) hypertension Status: Chronic Assessment and Plan: * continue with metoprolol if blood pressure allows. Hold if heart rate less than 50. * 130/60 (5) BPH (benign prostatic hyperplasia): Code(s): N40.0 - Benign prostatic hyperplasia without lower urinary tract symptoms Status: Acute Assessment and Plan: * continue with Flomax (6) Glaucoma: Code(s): H40.9 - Unspecified glaucoma Status: Acute Assessment and Plan: * continue with timolol eyedrops. Subjective Date/time seen: 07/13/25 10:35 Interval history: 79-year-old male patient who has a history of chronic kidney disease, hypertension, and UTIs. The patient recently had a De Leon catheter placed. This has been ongoing for the last week. 07/13/2025 Patient sitting comfortably at bedside at time of examination. Will obtain MRI today for ongoing AMS, he remains A&Ox2-3. Besides some indegestion after eating lunch, he has no complaints at this time. Neuro consult also pending. Urine cultures finalized. Likely will need ongoing therapy with SNF given required assistance during PT/OT evals. Review of Systems Review of Systems: The patient is a poor historian. Constitutional: Constitutional: Reports as per HPI and Reports no additional constitutional complaints Eyes: Eyes: Reports as per HPI and Reports no additional eye complaints ENT: Reports system reviewed and no additional complaints, except as documented and Reports Normal hearing present Cardiovascular: Cardiovascular: Reports no additional cardiovascular complaints Respiratory: Respiratory: Reports as per HPI and Reports no additional respiratory complaints Gastrointestinal: Gastrointestinal: Reports as per HPI and Reports no additional gastrointestinal complaints Musculoskeletal: Musculoskeletal: Reports no additional musculoskeletal complaints Integumentary/Breasts: Skin/Breast: Reports system reviewed and no additional complaints, except as docu Neurologic: Reports system reviewed and no additional complaints, except as documented and Reports Normal hearing present Psychiatric: Psychiatric: Reports no additional psychiatric complaints and Reports as per HPI Hematologic/Lymphatic: Hematologic/Lymphatic: Reports no additional hematologic/lymphatic complaints Allergic/Immunologic: Allergic/Immunologic: Reports no additional allergic/immunologic complaints Exam Const: General: cooperative, healthy appearing, comfortable, no acute distress, well developed, awake, Physically active, average body habitus and well nourished Nutritional Appearance: average body habitus and well nourished Orientation/consciousness: oriented to person and oriented to place HENMT: Head: normal to inspection, No palpable skull fracture present, normocephalic, atraumatic and abrasion Eyes: General: appearance normal, both eyes and all related structures Alignment and Position: alignment normal Periorbital: periorbital findings normal Eyelids: eyelids normal Neck: Neck: normal visual inspection, full ROM and no lymphadenopathy Chest: Chest palpation & inspection: normal inspection of the chest Resp: Effort & Inspection: normal respiratory effort Auscultation: clear to auscultation bilaterally Cardio: Palpation: normal PMI Rate: regular rate Rhythm: regular rhythm Heart sounds: S1 normal heart sound present and S2 normal heart sound present Peripheral pulses: Peripheral pulses 2+ throughout GI: Inspection: normal to inspection Auscultation: normal bowel sounds Rectal Exam: deferred : General: Yes no CVA tenderness Back/Spine/Pelvis: Back: no CVA tenderness Cervical Spine: cervical ROM normal Thoracic/Lumbar Spine: thoracic and lumbar spine normal to inspection Pelvis: no pain with anterior-posterior compression Skin: General skin exam: normal color Lesions: no lesions Rashes: no rashes Trauma: no lacerations or abrasions Wounds: no wounds Hair: normal Nails: normal Neuro: General: oriented to person and oriented to place Cranial nerves: Yes Normal hearing present Speech: normal speech Extrem: General: normal to inspection Right upper extremity: normal to inspection and shoulder/upper arm Left upper extremity: normal to inspection and shoulder/upper arm Right lower extremity: normal to inspection Left lower extremity: normal to inspection Psych: Appearance: grossly normal Mental Status: mental status grossly normal Speech and movement: Normal speech and movement present Affect: normal affect Attitude: cooperative Thought process: Normal thought process present Objective Data Vital Signs Vital Signs: Vital Signs - 24 hr 07/12/25 14:00 07/12/25 21:22 07/12/25 21:30 Temperature 97.1 F L 97.7 F Pulse Rate 75 100 Respiratory Rate 12 18 Blood Pressure 126/70 143/83 H Pulse Oximetry 95 94 Oxygen Delivery Room Air 07/12/25 21:38 07/13/25 04:35 Temperature 98 F Pulse Rate 100 61 Respiratory Rate 16 Blood Pressure 150/72 H Pulse Oximetry 93 Oxygen Delivery Intake/Output Intake/Output: Intake & Output 07/10/25 07/11/25 07/12/25 07/13/25 23:59 23:59 23:59 23:59 Intake Total 2450 2712 980 400 Output Total 1300 1100 900 950 Balance 1150 1612 80 -550 Meds/Results Medications: Active Medications Generic Name Dose Route Start Last Admin Trade Name Freq PRN Reason Stop Dose Admin Acetaminophen 1,000 mg 07/10/25 03:39 07/12/25 13:32 Acetaminophen 500 Mg Tablet PO 1,000 mg Q12H PRN Administration Pain (Scale Score 1-3) Amoxicillin 500 mg 07/13/25 10:00 Amoxicillin 500 Mg Capsule PO 07/16/25 22:01 Q8HR AMRT Artificial Tears 1 drop 07/12/25 12:56 Artificial Tears Ophth Soln 15 Ml Bottle EACH EYE QID PRN Dry Eye(s) Aspirin 81 mg 07/10/25 08:00 07/12/25 08:09 Aspirin 81 Mg Chewable Tablet PO 81 mg DAILY@0800 MART Administration Brimonidine Tartrate 1 drop 07/10/25 09:00 07/12/25 21:38 Brimonidine Tartrate 0.2% Op Soln 5 Ml Btl EACH EYE 1 drop Q12HR MART Administration Duloxetine HCl 30 mg 07/10/25 09:00 07/12/25 21:37 Duloxetine Hcl 30 Mg Capsule.Dr PO 30 mg Q12HR MART Administration Metoprolol Tartrate 50 mg 07/10/25 09:00 07/12/25 21:38 Metoprolol Tartrate 50 Mg Tab PO 50 mg Q12HR MART Administration Miconazole Nitrate 1 applic 07/10/25 09:00 07/12/25 21:39 Miconazole Nitrate 2% Cream 30 Gm Tube TOPICAL 1 applic Q12HR MART Administration Tamsulosin HCl 0.8 mg 07/10/25 21:00 07/12/25 21:37 Tamsulosin Hcl 0.4 Mg Capsule PO 0.8 mg HS MART Administration Timolol Maleate 1 drop 07/10/25 09:00 07/12/25 21:38 Timolol Maleate 0.5% Op Soln 5 Ml Bottle EACH EYE 1 drop Q12HR MART Administration Radiology Results: ITS Impressions Chest X-Ray 07/09/25 11:04 IMPRESSION: 1. Borderline enlarged heart shadow. No armani pulmonary edema or large effusion. Head CT 07/09/25 11:08 IMPRESSION: 1. No gross intracranial mass effect or hemorrhage. 2. Ventriculomegaly; query if patient has presentation suggestive of NPH. 3. Chronic white vessel ischemic white matter changes. Labs Labs: Laboratory Results - last 24 hr 07/13/25 05:41 WBC 7.8 RBC 3.92 L Hgb 13.1 L Hct 39.3 L MCV 100.3 H MCH 33.4 MCHC 33.3 RDW 12.8 Plt Count 305 MPV 8.4 Sodium 135 L Potassium 4.1 Chloride 102 Carbon Dioxide 26 Anion Gap 7 BUN 22 H Creatinine 1.13 Estim Creat Clear Calc 55 Estimated GFR > 60 Glucose 151 H Lactic Acid 1.0 Calcium 9.5 Quality VTE Prophylaxis VTE prophylaxis: mechanical ordered
--- NOTE | 2025-07-13 11:26 | PCPTNOTE ---
Patient refused treatment this session. Patient did not give reason why. Per nursing patient has been more confused this date.
[2025-07-13] MEDS: MICONAZOLE NITRATE 2% CREAM 30 GM TUBE 1 APPLIC TOPICAL ×2 (13:31→22:06)
[2025-07-13 14:00] VITALS: BP 140/67; PULSE 80; RESP 18; TEMP 36.3; O2SAT 95
[2025-07-13] MEDS: AMOXICILLIN 500 MG CAPSULE PO ×2 (14:51→21:34)
[2025-07-13] MEDS: ASPIRIN 81 MG CHEWABLE TABLET PO (14:51)
--- NOTE | 2025-07-13 19:00 | PC.NURSE ---
Glaucoma shunt possibly placed by Dr. Philip Menendez with [facility].
[2025-07-13] MEDS: BRIMONIDINE TARTRATE 0.2% OP SOLN 5 ML BTL 1 DROP EACH EYE (21:33)
[2025-07-13 21:34] VITALS: PULSE 63
[2025-07-13] MEDS: METOPROLOL TARTRATE 50 MG TAB PO (21:34)
[2025-07-13] MEDS: TIMOLOL MALEATE 0.5% OP SOLN 5 ML BOTTLE 1 DROP EACH EYE (21:34)
[2025-07-13] MEDS: TAMSULOSIN HCL 0.4 MG CAPSULE 0.8 MG PO (21:36)
[2025-07-13 22:00] VITALS: BP 127/78; PULSE 63; RESP 18; TEMP 36.6; O2SAT 96
[2025-07-13 22:22] VITALS: BP 127/78; PULSE 63; RESP 18; TEMP 36.6; O2SAT 96
[2025-07-14 05:08] LABS: Hematocrit 39.8 % (42.0-52.0); Hemoglobin 13.3 g/dL (14.0-18.0); Mean Corpuscular HGB Conc 33.4 g/dl (32-36); Mean Corpuscular Hemoglobin 33.5 pg (26-34); Mean Corpuscular Volume 100.3 fl (80-100); Platelet Count Result 309 k/mm3 (150-375); Red Blood Count 3.97 M/mm3 (4.6-6.20); White Blood Count 8.1 K/mm3 (4.5-10.0)
[2025-07-14 06:00] VITALS: BP 127/81; PULSE 91; RESP 18; TEMP 36.7; O2SAT 96
[2025-07-14] MEDS: AMOXICILLIN 500 MG CAPSULE PO (06:34)
[2025-07-14 09:16] VITALS: PULSE 86
[2025-07-14] MEDS: METOPROLOL TARTRATE 50 MG TAB PO (09:16)
[2025-07-14] MEDS: ASPIRIN 81 MG CHEWABLE TABLET PO (09:16)
[2025-07-14] MEDS: BRIMONIDINE TARTRATE 0.2% OP SOLN 5 ML BTL 1 DROP EACH EYE (09:18)
[2025-07-14] MEDS: MICONAZOLE NITRATE 2% CREAM 30 GM TUBE 1 APPLIC TOPICAL (09:18)
[2025-07-14] MEDS: TIMOLOL MALEATE 0.5% OP SOLN 5 ML BOTTLE 1 DROP EACH EYE (09:19)
--- NOTE | 2025-07-14 10:07 | P.DS_ITS ---
DS: Admitting Diagnosis Discharge Date 07/14/25 Admitting Diagnosis UTI DS: Discharge Diagnosis Discharge Diagnosis (1) Acute metabolic encephalopathy: Code(s): G93.41 - Metabolic encephalopathy Status: Acute (2) Acute UTI: Code(s): N39.0 - Urinary tract infection, site not specified Status: Acute (3) CKD stage 3a, GFR 45-59 ml/min: Code(s): N18.31 - Chronic kidney disease, stage 3a Status: Acute (4) Essential hypertension: Code(s): I10 - Essential (primary) hypertension Status: Chronic (5) BPH (benign prostatic hyperplasia): Code(s): N40.0 - Benign prostatic hyperplasia without lower urinary tract symptoms Status: Acute (6) Glaucoma: Code(s): H40.9 - Unspecified glaucoma Status: Acute DS: Summary Hospital Course Reason for hospitalization: Confusion Hospital Course: The patient is an 79-year-old male with a history of CKD stage 3a, recurrent UTIs, BPH with chronic De [place] catheter, hypertension, and prior episodes of sepsis-associated atrial fibrillation who presented on 07/09/25 with one week of worsening confusion. Initial evaluation revealed leukocytosis (WBC 18.9), acute kidney injury with creatinine 2.16 (baseline GFR ?44?56), and urinalysis consistent with infection. CT head showed no acute intracranial process but demonstrated ventriculomegaly with chronic microvascular ischemic changes. He was admitted to observation and treated with IV fluids and empiric ceftriaxone for presumed catheter-associated UTI with associated acute metabolic encephalopathy. Blood cultures remained without growth, and urine cultures ultimately grew?Enterococcus faecalis, prompting transition to oral amoxicillin. Renal function steadily improved with hydration (Cr 2.16 ? 1.13), leukocytosis resolved (18.9 ? 7.8), and lactic acid normalized. His mental status gradually improved but did not fully return to baseline, remaining oriented to person and place (A&O x2?3). Neurology was was considered given persistent altered mental status, however upon further chart review, it appears as though the patient experiences altered mental status similar to current presentation with concurrent urinary tract infections and has been seen multiple times over the past couple of years for similar complaints. Ventriculomegaly on imaging also has been seen on previous images and he will be instructed to follow-up with neurology in the outpatient setting for further workup regarding this issue. He is otherwise hemodynamically stable for discharge at this time. Discussed with him and his who agreed that patient is near baseline and feel comfortable with discharge at this point. Given ongoing functional limitations identified by PT/OT, discharge planning focused on transfer to a shelter facility for continued rehabilitation and completion of antibiotic therapy. Status at Discharge Functional status at discharge: uses cane/walker Overall status at discharge: patient is progressing back to baseline Time Spent with Patient Time attestation: Total time spent providing and/or coordinating discharge services: 30 Exam Const: General: cooperative, healthy appearing, comfortable, no acute distress, well developed, awake, Physically active, average body habitus and well nourished Nutritional Appearance: average body habitus and well nourished Orientation/consciousness: oriented to person and oriented to place HENMT: Head: normal to inspection, No palpable skull fracture present, normoce phalic, atraumatic and abrasion Eyes: General: appearance normal, both eyes and all related structures Alignment and Position: alignment normal Periorbital: periorbital findings normal Eyelids: eyelids normal Neck: Neck: normal visual inspection, full ROM and no lymphadenopathy Chest: Chest palpation & inspection: normal inspection of the chest Resp: Effort & Inspection: normal respiratory effort Auscultation: clear to auscultation bilaterally Cardio: Palpation: normal PMI Rate: regular rate Rhythm: regular rhythm Heart sounds: S1 normal heart sound present and S2 normal heart sound present Peripheral pulses: Peripheral pulses 2+ throughout GI: Inspection: normal to inspection Auscultation: normal bowel sounds Rectal Exam: deferred : General: Yes no CVA tenderness Back/Spine/Pelvis: Back: no CVA tenderness Cervical Spine: cervical ROM normal Thoracic/Lumbar Spine: thoracic and lumbar spine normal to inspection Pelvis: no pain with anterior-posterior compression Skin: General skin exam: normal color Lesions: no lesions Rashes: no rashes Trauma: no lacerations or abrasions Wounds: no wounds Hair: normal Nails: normal Neuro: General: oriented to person and oriented to place Cranial nerves: Yes Normal hearing present Speech: normal speech Extrem: General: normal to inspection Right upper extremity: normal to inspection and shoulder/upper arm Left upper extremity: normal to inspection and shoulder/upper arm Right lower extremity: normal to inspection Left lower extremity: normal to inspection Psych: Appearance: grossly normal Mental Status: mental status grossly normal Speech and movement: Normal speech and movement present Affect: normal affect Attitude: cooperative Thought process: Normal thought process present DS: Data Data Completed and Pending Labs on day of discharge: Labs from last 24 hours 07/14/25 07/14/25 04:45 04:44 WBC 8.1 RBC 3.97 L Hgb 13.3 L Hct 39.8 L MCV 100.3 H MCH 33.5 MCHC 33.4 RDW 12.9 Plt Count 309 MPV 8.4 Lactic Acid 1.0 Preliminary micro results at discharge 07/09/25 13:46 Blood Culture - Preliminary Blood 07/09/25 13:52 Blood Culture - Preliminary Blood Discharge Plan Discharge Attending physician on discharge: Terrell De Souza Consulting providers: Dieter Gonsalez; Sabas Erickson Discharging Clinician: Dieter Gonsalez Anticipated Discharge Date/Time: 07/14/25 10:05 Patient Disposition: SNF Activity: as tolerated Diet: heart healthy Discharge Instructions: Discharge disposition: [facility] Take medications as prescribed. You will be discharged on amoxicillin for an additional 9 doses, to be taken 3 times daily until the p.m. of 07/16/2025 Monitor blood pressures Take caution while standing, rising, or moving Change positions slowly taking a break between each position change If you standing feel dizzy sit back down and take a break Encouraged to continue with yearly vaccinations Return to the emergency department if you develop sudden shortness of breath, chest pain, nausea, vomiting, upset stomach or intractable diarrhea Return to the emergency department if you develop fever greater than 101.5 Follow-up with the primary care physician within 1-2 weeks Thank you for choosing [facility] for your healthcare needs Patient Instructions: Antibiotic Form Patient Language: Comoran Stand Alone Forms: General Discharge Information Follow-up/Referrals: Bubba Cho MD [Primary Care Provider, Family Practice] Discharge Medications: New amoxicillin 500 mg Capsule 500 mg PO Q8HR Qty: 9 0RF Continued nystatin 100,000 unit/gram cream 1 applic topical QID 30 Days Qty: 30 0RF fluconazole 150 mg tablet 150 mg PO Q3D Qty: 2 0RF nystatin 100,000 unit/gram powder 1 applic topical BID Qty: 60 0RF Rx Instructions: Apply to affected areas in groins tamsulosin 0.4 mg capsule 0.8 mg PO HS 30 Days Qty: 0 0RF lisinopril 10 mg tablet 10 mg PO DAILY 30 Days Qty: 90 1RF metoprolol tartrate 50 mg tablet 50 mg PO BID 30 Days Qty: 180 1RF acetaminophen 500 mg capsule 1,000 mg PO BID PRN (Reason: Pain (Scale Score 1-3)) 30 Days Qty: 0 0RF duloxetine 30 mg capsule,delayed release(DR/EC) 30 mg PO BID 30 Days Qty: 60 4RF potassium citrate 15 mEq tablet extended release 15 meq PO BID 30 Days Qty: 0 0RF brimonidine-timolol 0.2-0.5 % drops 1 drp EACH EYE Q12H 30 Days Qty: 1 0RF aspirin 81 mg tablet,chewable 81 mg PO DAILY Qty: 30 0RF cranberry fruit 450 mg tablet 450 mg PO DAILY Qty: 30 0RF Rx Instructions: administer with a meal Date of admission: 07/10/25 12:56 Primary Care Provider: Bubba Cho Admitting Provider: Bhupinder Roy Attending physician on admission: Bhupinder Roy Condition: Stable Quality VTE Prophylaxis VTE prophylaxis: mechanical ordered
== END 2025-07-14 13:10 | DRG 698 ==
LOC: ANHED 09:34 → ANH3MEDSUR 15:26 → ANH3MED 16:23
PROVIDERS: Nurse Practitioner; Admitting Provider Internal Medicine; Emergency Provider Physician Assistant; PCP Family Medicine; Visit Provider Internal Medicine
DX: T83.511A Infection and inflammatory reaction due to indwelling urethral catheter, initial encounter (principal); G93.41 Metabolic encephalopathy; Y73.8 Miscellaneous gastroenterology and urology devices associated with adverse incidents, not elsewhere classified; B95.2 Enterococcus as the cause of diseases classified elsewhere; N40.1 Benign prostatic hyperplasia with lower urinary tract symptoms; I12.9 Hypertensive chronic kidney disease with stage 1 through stage 4 chronic kidney disease, or unspecified chronic kidney disease; N18.31 Chronic kidney disease, stage 3a; I48.0 Paroxysmal atrial fibrillation; R73.03 Prediabetes; M05.79 Rheumatoid arthritis with rheumatoid factor of multiple sites without organ or systems involvement; E55.9 Vitamin D deficiency, unspecified; Z20.822 Contact with and (suspected) exposure to COVID-19; H40.9 Unspecified glaucoma; H54.62 Unqualified visual loss, left eye, normal vision right eye; Z79.82 Long term (current) use of aspirin; Z87.440 Personal history of urinary (tract) infections; Z85.46 Personal history of malignant neoplasm of prostate; Z86.73 Personal history of transient ischemic attack (TIA), and cerebral infarction without residual deficits; Z85.828 Personal history of other malignant neoplasm of skin; Z87.19 Personal history of other diseases of the digestive system; Z86.16 Personal history of COVID-19; Z86.711 Personal history of pulmonary embolism
CPT/HCPCS: 36415; 70450; 71045; 80048; 80053; 81001; 83605; 83735; 84100; 85025; 85027; 85610; 85730; 87040; 87086; 87186; 87636; 93005; 96365; 97110; 97162; 97165; 97530; 97535; 99285; A9270; G0378; J0696; J7030; J7040